=== PATIENT | male | born 1945 | race Caucasian/White ===

== ENCOUNTER → 2018-06-01 06:56 | Outpatient (CLI) | payer MEDICARE, OTHER, SELFPAY ==
--- NOTE | 2018-06-01 06:59 | CT_ITS ---
STUDY: CT BRAIN WITH AND WITHOUT CONTRAST REASON FOR EXAM: Male, 72 years old. Headaches. Vertigo and dizziness. Patient has a history of bilateral cochlear implants. RADIATION DOSAGE (If Supplied By Facility): CTDIvol = ( 44.99 ) mGy, DLP = ( 1585.20 ) mGycm TECHNIQUE: Transaxial CT imaging of the brain was performed pre and post contrast administration. The examination was performed with intravenous administration of 100mL ml of Isovue 300 contrast material. Individualized dose optimization techniques were used for this CT. COMPARISON: None. FINDINGS: Normal soft tissue structures. Prior right parietal craniotomy. Beam hardening artifact seen from the bilateral cochlear implants. The patient is status post bilateral partial mastoidectomy. There is mild cerebral atrophy with widening of the extra-axial spaces and ventricular dilatation. Normal white matter tracts of the cerebral hemispheres. Normal basal ganglia and thalami. Normal brainstem. Normal cerebellum. There is no intracranial hemorrhage. There are no findings of an acute ischemic infarction. Atherosclerotic plaques at the level of the cavernous carotids bilaterally. Normal visualized paranasal sinuses. CT/Brain/Head W/WO Contrast IMPRESSION: Chronic involutional changes of the brain. Electronically Signed: Germán Sarkar MD at 9:48 EDT Tel [phone], Service support ,
[2018-06-01 07:15] LABS: CREATININE FINGERSTICK 0.9 mg/dL (0.70-1.30); EGFR FINGERSTICK > 60.0000 mL/min (>60)
== END ==
PROVIDERS: Family Provider Family Medicine; PCP Family Medicine; Visit Provider Family Medicine
DX: R51 Headache (principal)
CPT/HCPCS: 70470; Q9967

== ENCOUNTER → 2018-08-09 11:45 | Outpatient (CLI) | payer MEDICARE, OTHER, SELFPAY ==
[2018-08-09 14:38] LABS: Anion Gap 9 (5-15); BUN 20 mg/dL (7-18); BUN/Creat Ratio 17.7 RATIO (10-20); Calcium,Total 9.2 mg/dL (8.5-10.1); Chloride 109 mmol/L (98-107); Cholesterol 144 mg/dL (200); Creatinine, Serum 1.13 mg/dL (0.70-1.30); EST Glomerular Filtration Rate 68 mL/min (>60); Est Glom Filt Rate - Afr Amer 82 mL/min (>60); Glucose 101 mg/dL (74-106); High Density Lipoprotein 39 mg/dL; Potassium 4.3 mmol/L (3.5-5.1); Sodium Level 140 mmol/L (136-145); Triglycerides 146 mg/dL; Very Low Density Lipoprotein 29 mg/dL (5-40)
== END ==
PROVIDERS: Family Provider Family Medicine; PCP Family Medicine; Visit Provider Family Medicine
DX: I10 Essential (primary) hypertension (principal); E78.5 Hyperlipidemia, unspecified
CPT/HCPCS: 80048; 80061

== ENCOUNTER 2019-04-09 10:00 | Outpatient (RCR) | payer MEDICARE, OTHER, SELFPAY ==
--- NOTE | 2019-03-27 11:59 | HP.PTEVAL ---
Patient's Visit Information BHAVNA ROCA is a 73 year old M referred to Physical Therapy by Jc Fowler MD with a diagnosis of gait and balance issues. Date of Evaluation: 03/27/19 Physical Therapist: NATALYA Clifton - Visit Plan Frequency: 2x /Week Duration: 4-6 Weeks Plan: 2X/ week for 4-6 weeks for VOR X 1, gait with head turns, functional balance with vestibular inputs, with HEP - Subjective Findings: Pt was at the neurologist and he did a babinski test (pt described) and he could not tell the difference in his feet......dx cervical myelopathy. Approx 5 years ago he was diagnosed with decreased L sided vestibular system and he was doing ok with that. In Nov of this year the Dr said that he had high drops ( excess fluid in the inner ear) and the cochlea and the 3 tubes that help with balance have excess fluid. Pt has not fallen but his balance is not the best. He notices it more on uneven ground and steps and standing on one foot and turn.... he is better with 2 feet on the ground. Pt has neck spinal surgery a few years ago. He wears 2 choclear implnats and cant have an MRI and he has a CAT SCAN wtih contrast coming up as soon as gets scheduled. He has stairs in his home and he can have trouble with those .... he rubs up against the wall ascending and descending the stairs. The other day he was carrying some stuff up stairs for his and he went backwards and his help caught him from going BW. He has trouble getting in and out of his recliner. He has to be careful onece he stands up. The room does not spin at this point. He may get a messed up feeling. - Objective Gait: walks with WBOS with slightly decreased arm swing and forefoot abd. LE MMT: B hip flex 4+/5, B hip abd 4+/5, B hip ext 4/5, B knee flex and ext 4+/5,. FGA: 19 ( Stairs: no arms but increase sway and veering) ( walking with horizontal head turns increased veering). CATSIB: 100. Sit to stand transfer: Pt is able to stand up without the use of his UE's. Stairs: Able to sit to stand without using his UE's - Balance Scores Functional Gait Assessment Score: 19 % Disability: 36.6700 CATSIB Score (Max score 120 seconds): 100 - Goals Goal 1:: I HEP Goal Time Frame: 4-6 Weeks Goal 2:: Increase CATSIB to 120 Goal Time Frame: 4-6 Weeks Goal 3:: Pt to sunjectively feel 50% improvement in his balance Goal Time Frame: 4-6 Weeks Goal 4:: Be able to complete VOR X 1 in standing and walking with no complaints of dizziness for 75 feet Goal Time Frame: 4-6 Weeks Goal 5:: Be able to walk with horizontal head turns with no veering or LOB Goal Time Frame: 4-6 Weeks - Rehabilitation Potential Rehabilitation Potential: Good - Anticipated Interventions Patient/Client Instruction: Educate patient on: Condition, Plan of Care For the Purpose of:: To improve muscle performance and motor function, To improve ability to perform ADL's, To increase tolerance to activity/condition/position, To improve performance and independence with ADL's, To improve ability of physical actions for home/community/work/leisure, To improve gait and locomotor functions, To improve balance, To improve safety with gait Therapeutic Exercise to Include: Strength training, Balance training, Gait and locomotor training For the Purpose of:: To improve gait and locomotor functions, To improve balance, To improve safety with gait Functional Training to Include: Gait training For the Purpose of:: To improve gait and locomotor functions, To improve safety with gait Thank you for the opportunity to evaluate your patient. For Medicare and Medicare HMO plans, please review the plan of care and approve it. It will need to be FAXED BACK to us at [phone] for Medicare purposes. For Medicare only, by signing this I certify the plan of care. Please let me know if there are questions or concerns regarding this plan of care. Physician Signature: Date:
--- NOTE | 2019-04-09 10:42 | HP.PTDCSUM ---
HP - PT D/C Summary It has been my pleasure to treat BHAVNA ROCA under orders from Jc Fowler MD, for the diagnosis of gait and balance issues for a total of 3 visit(s). Discharge Date: 04/09/19 Please see the following information for a summary of their discharge status. - Subjective Subjective: He has been doing his exercises at home and they are not making him dizzy. Pt reports that in the last few days..... Pt feels terrible. He is not dizzy... He does not feel like doing anything. THe more he does the more he feels off. He does feel unsteady especially on uneven surfaces and better to turn on 2 feet versus one foot. Pt feels frustrated that he is doing PT and does not have all the pieces of the puzzle togheter with his CAT SCAN etc... - Objective Objective/Function: Pt has some decreased smoothness with smooth pursuit with some catching up needed at times both horizontal and vertical. Pt is able to walk 65 feet X2 with horizontal and then vertical head turns without LOB or veering. Pt is able to stand on foam X 30 sec X 3 while being able to correct his LOB without any external support - Goals Goal 1:: I HEP Goal Progress: Goal Met Goal 2:: Increase CATSIB to 120 Goal Progress: Goal Met Goal 3:: Pt to sunjectively feel 50% improvement in his balance Goal Progress: Progressing Goal 4:: Be able to complete VOR X 1 in standing and walking with no complaints of dizziness for 75 feet Goal Progress: Goal Met Goal 5:: Be able to walk with horizontal head turns with no veering or LOB Goal Progress: Goal Met - Plan Plan: DC PT to HEP: Standing on foam in corner with someone present for safety with EC and head turns - D/C Information Discharge Comments: DC PT to HEP If there are questions or concerns regarding this patient's physical therapy, please feel free to call me at [phone]. Thank you for the referral of this patient. Sincerely, Agata Correia, MPT
== END 2019-04-09 19:00 | disposition home or self-care (01) ==
LOC: PT 10:00
PROVIDERS: Family Provider Family Medicine; PCP Family Medicine; Referring Provider Psychiatry & Neurology Neurology; Visit Provider Psychiatry & Neurology Neurology
DX: R26.89 Other abnormalities of gait and mobility (principal)
CPT/HCPCS: 97110; 97161; 97530

== ENCOUNTER → 2019-04-12 14:57 | Outpatient (CLI) | payer MEDICARE, OTHER, SELFPAY ==
--- NOTE | 2019-04-12 15:03 | CT_ITS ---
STUDY: CT CERVICAL SPINE WITH CONTRAST REASON FOR EXAM: Male, 73 years old. Cervical stenosis. Prior surgery. RADIATION DOSAGE (If Supplied By Facility): CTDIvol = ( 24.45 ) mGy, DLP = ( 654.88 ) mGycm TECHNIQUE: High resolution transaxial imaging was performed following intravenous administration of 100 IV Isovue 300. Sagittal and coronal images were reconstructed. Individualized dose optimization techniques were used for this CT. COMPARISON: 11/29/2016 FINDINGS: No definite acute fracture/dislocation. The cervical junction is intact. C1-C2 articulation is intact. Patient has had discectomies and anterior fusion at C5, C6, and C7. There is mature bony fusion at these disc levels and there is no complication related to the anterior buttress plate. There is straightening. There is normal alignment. Facet joints are intact at all levels bilaterally. No jumped facets. There is multilevel spondyloarthropathy. Multilevel degenerative disc disease seen. At C2-C3 there is adequate spinal canal In normal neural foramina. At C3-C4 there are posterior marginal osteophytes. Severe narrowing of the left neural foramina. Mild narrowing of the right neural foramina. No definite spinal stenosis. At C4-C5 there is bilateral moderate to severe neural foraminal narrowing. Mild compromise of the spinal canal. At C5-C6 there is moderate to severe bilateral neural foraminal narrowing. There is [id number] compromise of the spinal canal. At C6-C7 there is moderate bilateral neural foraminal narrowing. At C7-T1 there is adequate spinal canal due to a normal neural foramina. Visualized paraspinal soft tissues and structures are unremarkable. CT/Spine Cervical WITH Contrast IMPRESSION: There is no definite acute fracture/dislocation. Degenerative and postoperative changes. Electronically Signed: Carlos Leal MD at 0:00 EDT , Service support ,
[2019-04-12 15:21] LABS: EGFR FINGERSTICK > 60.0000 mL/min (>60)
== END ==
PROVIDERS: Family Provider Family Medicine; PCP Family Medicine; Referring Provider Psychiatry & Neurology Neurology; Visit Provider Psychiatry & Neurology Neurology
DX: R27.0 Ataxia, unspecified (principal); M54.12 Radiculopathy, cervical region
CPT/HCPCS: 72126; Q9967

== ENCOUNTER → 2019-05-10 09:27 | Outpatient (CLI) | payer MEDICARE, OTHER, SELFPAY ==
[2019-05-10 10:18] LABS: Absolute Lymphocyte Count 1.25 X10^3/ul (0.83-4.51); Absolute Neutrophil Count 4.8 X10^3/uL (2.0-7.7); Basophil# 0.02 X10^3/uL; Basophil% 0.3 % (0-1); Eosinophils% 4.2 % (0-5); Hematocrit 46.7 % (40-54); Lymphocyte # 1.25 X10^3/ul (4.0); Lymphocyte % 17.3 % (19-41); Mean Corp Hgb Conc 34.3 g/gl (32-36); Mean Corpuscular Hgb 31.6 pg (27.0-32.0); Mean Corpuscular Volume 92.1 fL (80-94); Mean Platelet Vol. 10.4 fl (6.2-12.0); Monocyte# 0.85 X10^3/uL; Monocyte% 11.8 % (0-10); Neutrophil # 4.77 X10^3/uL (2.7-7.7); Platelet Count 204 K/mm3 (150-450); RBC Distribution Width CV 13.1 % (11.6-14.6); RBC Distribution Width SD 43.8 fl (35.1-43.9); Red Blood Count 5.07 M/mm3 (4.6-6.2); White Blood Count 7.2 K/mm3 (4.4-11.0)
[2019-05-10 10:21] LABS: POSITIVE COUNT NO; POSITIVE DIFFERENTIAL NO; POSITIVE MORPHOLOGY NO
[2019-05-10 10:56] LABS: Anion Gap 6 (5-15); BUN 28 mg/dL (7-18); BUN/Creat Ratio 25.7 RATIO (10-20); Calcium,Total 8.8 mg/dL (8.5-10.1); Chloride 111 mmol/L (98-107); Cholesterol 153 mg/dL (200); Creatinine, Serum 1.09 mg/dL (0.70-1.30); EST Glomerular Filtration Rate 71 mL/min (>60); Est Glom Filt Rate - Afr Amer 86 mL/min (>60); Glucose 92 mg/dL (74-106); High Density Lipoprotein 39 mg/dL; PSA,Total - Annual Screen 1.54 ng/mL (0.00-4.00); Potassium 4.1 mmol/L (3.5-5.1); Sodium Level 140 mmol/L (136-145); Thyroid Stim Hormone (TSH) 2.35 uIU/mL (0.358-3.74); Triglycerides 196 mg/dL; Very Low Density Lipoprotein 39 mg/dL (5-40)
== END ==
PROVIDERS: Family Provider Family Medicine; PCP Family Medicine; Referring Provider Family Medicine; Visit Provider Family Medicine
DX: I10 Essential (primary) hypertension (principal); E04.2 Nontoxic multinodular goiter; E78.5 Hyperlipidemia, unspecified; R06.09 Other forms of dyspnea; Z12.5 Encounter for screening for malignant neoplasm of prostate
CPT/HCPCS: 36415; 80048; 80061; 84153; 84443; 85025; G0103

== ENCOUNTER → 2019-05-16 12:46 | Outpatient (CLI) | payer MEDICARE, OTHER, SELFPAY ==
--- NOTE | 2019-05-16 12:50 | CT_ITS ---
STUDY: CT CERVICAL SPINE WITH INTRATHECAL CONTRAST (CERVICAL CT MYELOGRAM) REASON FOR EXAM: Male, 73 years old. RADIATION DOSAGE (If Supplied By Facility): CTDIvol = ( ) mGy, DLP = ( ) mGycm TECHNIQUE: Transaxial images were obtained following intrathecal administration of ml of contrast material, performed by . Please refer to this physicians technical notes for procedural details. Coronal and sagittal reconstructions were obtained. Individualized dose optimization techniques were used for this CT. CONSENT: SEDATION: FLUOROSCOPY TIME (if supplied): (0:24) minutes/seconds Injection Information: Number of images obtained: COMPARISON: None. Under fluoroscopic control 22-gauge spinal needle was introduced into the subarachnoid space at the level L3-4. 10 cc Omnipaque 200 contrast was injected. The patient then was put in headdown position to be transferred to CT scan. CT/Spine Cervical WITH Contrast IMPRESSION: Successful injection of contrast into the subarachnoid at L3-4 Electronically Signed: Bhupinder Ferrell, at 7:39 EDT Tel , Service support ,
[2019-05-16 13:13] VITALS: BP 153/62; PULSE 64; RESP 16; TEMP 37; O2SAT 100; BMI 27.7
[2019-05-16 15:08] VITALS: BP 113/64; PULSE 63; RESP 16; O2SAT 96
== END ==
PROVIDERS: Family Provider Family Medicine; PCP Family Medicine; Referring Provider Orthopaedic Surgery; Visit Provider Orthopaedic Surgery
DX: M48.02 Spinal stenosis, cervical region (principal)
CPT/HCPCS: 62284; 72126; 72240; Q9965

== ENCOUNTER → 2019-05-27 06:37 | Outpatient (CLI) | payer MEDICARE, OTHER, SELFPAY ==
[2019-05-16 13:13] VITALS: BMI 27.7
--- NOTE | 2019-05-27 08:10 | ECHOD_ITS ---
Reason For Study: [place] Procedure This was a 2D Doppler, Color Flow transthoracic echocardiogram. Exam performed in department. Left Ventricle Normal LV size. Left ventricular systolic function is normal. The estimated ejection fraction is 65 %. Stage 1 diastolic dysfunction. No regional wall motion abnormalities noted. Right Ventricle Normal RV size. Normal systolic function. Atria Normal left atrium. Normal right atrium. Bubble contrast study negative for right to left interatrial shunt. Mitral Valve Normal mitral valve. Tricuspid Valve Normal tricuspid valve. Mild tricuspid valve insufficiency. Aortic Valve Normal aortic valve. Trisinus/trileaflet aortic valve. Pulmonic Valve Normal pulmonic valve. Great Vessels Normal aortic root. The pulmonary artery is normal size. Normal inferior vena cava. Pericardium/Pleural No pericardial effusion. Medication Performed a rapid injection of agitated mix of 9 cc saline and 1cc air to assess for atrial septal defect. MMode/2D Measurements & Calculations LVIDd: 4.4 cm IVSd: 1.1 cm Ao root diam: 3.4 cm LVIDs: 2.9 cm LVPWd: 0.96 cm RVDd: 4.0 cm FS: 33.5 % LAV(MOD-bp): 41.1 ml LVAd ap4: 25.9 cm2 SV(MOD-sp4): 42.0 ml LAV(MOD-bp) Indexed: 18.7 ml/m2 EDV(MOD-sp4): 67.3 ml LAV(MOD-sp2): 46.2 ml EDV(sp4-el): 69.9 ml LAV(MOD-sp4): 35.6 ml LVAs ap4: 14.1 cm2 ESV(MOD-sp4): 25.3 ml ESV(sp4-el): 23.8 ml EF(MOD-sp4): 62.4 % EF(sp4-el): 65.9 % SV(sp4-el): 46.0 ml LA A4 area: 15.3 cm2 LA dimension(2D): 4.6 cm RA A4 area: 15.1 cm2 Doppler Measurements & Calculations MV E max alex: 68.9 cm/sec Lat Peak E' Alex: 10.5 cm/sec Med Peak E' Alex: 6.5 cm/sec MV A max alex: 83.4 cm/sec E/E' lat: 6.6 E/E' med: 10.6 MV E/A: 0.83 Ao V2 max: 153.4 cm/sec LV V1 max: 127.2 cm/sec PA V2 max: 166.6 cm/sec Ao max P.4 mmHg LV V1 max P.5 mmHg PA V2 mean: 111.4 cm/sec Ao V2 mean: 104.0 cm/sec PA V2 VTI: 34.8 cm Ao mean P.8 mmHg Ao V2 VTI: 33.2 cm PI end-d alex: 109.8 cm/sec Interpretation Summary Normal LV size. Left ventricular systolic function is normal. The estimated ejection fraction is 65 %. Stage 1 diastolic dysfunction. Mild tricuspid valve insufficiency. Bubble contrast study negative for right to left interatrial shunt. Ordering Physician: Alberto Wilhelm Referring Physician: Alberto Wilhelm Performed By: Valentina Benjamin RDCS, RVT
--- NOTE | 2019-05-27 09:20 | STRESSREP ---
Stress Test Report Exercise myocardial perfusion stress test. 73-year-old man with a history of dyspnea on exertion. Medications: Hydrochlorthiazide. Stress protocol: Resting EKG demonstrates sinus bradycardia with a rate of 57 bpm normal intervals are noted resting blood pressures 120/64 mmHg. The patient exercised according to regular Jerry protocol for a total duration of 10 minutes. Patient completed 1 minute into stage IV of the Jerry protocol. The maximum heart rate attained was 137 bpm which was 91% of maximum predicted heart rate of maximum workload was 11.5 metabolic equivalents. Patient maintained sinus rhythm throughout the recording with occasional premature ventricular complexes noted. The resting blood pressure was 120/64 mmHg with a peak blood pressure 160/70 mmHg. No clinical angina was noted patient got mildly short of breath test was terminated due to leg fatigue. Myocardial perfusion protocol. 12.0 mCi of technetium 99m sestamibi was injected at rest. The patient exercised according to regular Jerry protocol for total duration of 10 minutes. At peak exercise 34.3 mCi of technetium 99m sestamibi was injected stress images were obtained stress and rest images are reconstructed and compared in the short axis vertical and horizontal long axis. Gated images were also obtained. Perfusion SPECT analysis: Review of the stress images demonstrate normal uptake of tracer noted in all areas of the myocardium the resting images similarly demonstrate normal uptake of tracer noted in all areas of the myocardium. No reversibility is noted suggest ischemia. Gated SPECT analysis: The gated ejection fraction is noted to be 67% with no wall motion abnormalities noted Conclusion: Exercise myocardial perfusion stress test with no evidence of ischemia noted at high workload. Excellent functional capacity. Preserved ejection fraction. No symptoms noted.
== END ==
PROVIDERS: Family Provider Family Medicine; PCP Family Medicine; Referring Provider Family Medicine; Visit Provider Family Medicine
DX: R06.09 Other forms of dyspnea (principal)
CPT/HCPCS: 78452; 93017; 93306; A9500; A4216

== ENCOUNTER → 2020-07-07 11:24 | Outpatient (CLI) | payer MEDICARE, OTHER, SELFPAY ==
[2019-05-16 13:13] VITALS: BMI 27.7
[2020-07-07 15:39] LABS: ALB/GLOB Ratio 1.1 RATIO (0.9-2.4); AST(SGOT) 24 U/L (15-37); Alanine Aminotransfer ALT/SGPT 29 U/L (16-61); Albumin, Serum 3.5 g/dL (3.2-5.0); Alkaline Phosphatase 87 U/L (45-117); Anion Gap 4 (5-15); BUN 16 mg/dL (7-18); Chloride 107 mmol/L (98-107); Cholesterol 163 mg/dL (200); EST Glomerular Filtration Rate 78 mL/min (>60); Est Glom Filt Rate - Afr Amer 94 mL/min (>60); Globulin 3.3 g/dL (2.2-4.2); Glucose 90 mg/dL (74-106); High Density Lipoprotein 44 mg/dL; PSA,Total - Annual Screen 1.96 ng/mL (0.00-4.00); Protein, Total 6.8 g/dL (6.4-8.2); Sodium Level 141 mmol/L (136-145); Triglycerides 159 mg/dL; Very Low Density Lipoprotein 32 mg/dL (5-40)
== END ==
PROVIDERS: PCP Family Medicine; Referring Provider Family Medicine; Visit Provider Family Medicine
DX: I10 Essential (primary) hypertension (principal); E78.5 Hyperlipidemia, unspecified; Z12.5 Encounter for screening for malignant neoplasm of prostate
CPT/HCPCS: 36415; 80053; 80061; 84153; G0103

== ENCOUNTER → 2021-03-12 11:06 | Outpatient (CLI) | payer MEDICARE, OTHER, SELFPAY ==
[2019-05-16 13:13] VITALS: BMI 27.7
[2021-03-13 12:34] LABS: PSA, Free % 33.3 % (.); PSA, Total Ultrasensitive 1.8 ng/mL (0.0-4.0)
== END ==
PROVIDERS: PCP Family Medicine; Visit Provider Family Medicine
DX: N40.0 Benign prostatic hyperplasia without lower urinary tract symptoms (principal)
CPT/HCPCS: 36415; 84153; 84154

== ENCOUNTER 2021-05-16 15:33 | Emergency (ER) | payer MEDICARE, OTHER, SELFPAY ==
[2019-05-16 13:13] VITALS: BMI 27.7
[2021-05-16 15:33] VITALS: BP 147/71; PULSE 74; RESP 16; TEMP 36.9; O2SAT 95; BMI 27.7
--- NOTE | 2021-05-16 15:43 | CT_ITS ---
STUDY: CT ABDOMEN AND PELVIS WITHOUT CONTRAST REASON FOR EXAM: Male, 75 years old. Kidney Stone RADIATION DOSAGE (If Supplied By Facility): CTDIvol = ( 13.39 ) mGy, DLP = ( 809.67 ) mGycm TECHNIQUE: Transaxial images were obtained from the dome of the diaphragm to the symphysis pubis without oral contrast, and without intravenous contrast. Sagittal and coronal images were reconstructed. Individualized dose optimization techniques were used for this CT. COMPARISON: None. FINDINGS: The visualized lung bases are unremarkable. The visualized portions of the heart are within normal limits. Normal liver. There are surgical clips in the gallbladder fossa consistent with a prior cholecystectomy. Normal spleen. Normal pancreas. Normal bilateral adrenal glands. Abnormal right kidney showing mild hydronephrosis and moderate hydroureter down to a 5 mm distal right ureteral stone seen on axial image 171 and coronal image 85. Several probable right renal cysts also seen is much as 3.4 cm. Left kidney shows numerous probable simple renal cyst measuring as much as 4.9 cm. Evaluation of the GI tract is limited by absence of oral contrast. Cannot exclude stomach wall thickening. No dilated loops of bowel or evidence for obstruction. Cannot exclude segmental thickening of the angeles of the small or large bowel. Cannot exclude enteritis or colitis. Moderate diffuse fecal retention. Appendix within normal limits. There is diffuse atherosclerotic calcification of the abdominal aorta, without a demonstrated aneurysm. Normal inferior vena cava. Normal retroperitoneum. Normal urinary bladder. There is enlargement of the prostate gland. Normal abdominal wall. There are diffuse degenerative changes of the visualized lumbar spine. CT/Abdomen/Pelvis without Cont IMPRESSION: Obstruction of the right kidney collecting system and ureter from a 5 mm distal right ureteral calculus. Numerous bilateral probable renal cysts-confirm with ultrasound. Electronically Signed: Carlos Leal MD at 16:22 EDT , Service support ,
--- NOTE | 2021-05-16 15:44 | EDS_ITS ---
HPI History of Present Illness Chief Complaint: Flank Pain Informant: patient and spouse/S.O. Narrative Narrative: 75-year-old male presents for the evaluation of right flank pain. Patient states he was driving and got a severe pain sharp and stabbing in the left flank. He thinks he had some slight anterior abdominal discomfort on the right side. He states that on the way to the emergency department he began to feel better and would now state that he does not have any pain. He is had a prior kidney stone requiring ureteral stenting. This was about 20 years ago. Normal bowel movements no fevers. No urinary complaints. [facility] Medical History (Updated 05/16/21 @ 17:[address] Devon Allen DO) Hypercholesterolemia Hypertension Home Medications aspirin 81 mg PO DAILY@0800 11/29/16 [History Last Taken 07/24/17] hydrochlorothiazide 12.5 mg PO DAILY 12/06/16 [History Last Taken Unknown] hydrocodone-acetaminophen 1 - 2 tab PO Q4H PRN PRN #15 tablet 12/06/16 [Rx Last Taken Unknown] lisinopril 20 mg PO DAILY 12/06/16 [History Last Taken Unknown] simvastatin 40 mg PO QHS 12/06/16 [History Last Taken Unknown] hydrocodone-acetaminophen 1 tab PO Q6H PRN PRN 3 Days #12 tablet 05/16/21 [Rx Last Taken Unknown] nortriptyline 10 mg PO QHS 05/16/21 [History Last Taken Unknown] ondansetron 4 mg PO Q6H PRN PRN #10 tab 05/16/21 [Rx Last Taken Unknown] Allergy/AdvReac Type Severity Reaction Status Date / Time No Known Allergies Allergy Verified 08/07/17 12:25 Surgical History History of cochlear implant S/P cholecystectomy S/P ureteral stent placement Social History (Updated 05/16/21 @ 15:[address] Devon Allen DO) Smoking Status: Never smoker substance use type: does not use ROS ROS ED Constitutional Constitutional ED: Denies chills or weight loss Eyes Eyes: Denies change in vision or diplopia ENT ENT ED: Denies ear pain, rhinorrhea or sore throat Cardiovascular Cardiovascular: Denies chest pain, orthopnea, palpitations or racing heartbeat Respiratory/Chest Respiratory/Chest: Denies cough, dyspnea or orthopnea Gastrointestinal Gastrointestinal: Denies abdominal pain, diarrhea, nausea or vomiting Genitourinary Genitourinary ED: Reports other Details: Right flank pain ; Denies dysuria, hematuria or urinary frequency Musculoskeletal Musculoskeletal: Denies arthralgias or myalgias Integumentary Denies abscess or rash Neurologic Neurologic: Denies headache(s) or weakness Psychiatric Psychiatric: Denies anxiety, depression, suicidal ideation or suicidal thoughts Endocrine Endocrinology: Denies polydipsia, polyphagia or polyuria Allergic/Immunologic Allergic/Immunologic ED: Denies mouth swelling, tongue swelling or urticaria EXAM Physical Exam Const Vital Signs: 05/16/21 15:33 Temperature 98.4 F Temperature Source Temporal Pulse Rate 74 Respiratory Rate 16 Blood Pressure 147/71 H Blood Pressure Mean 96 Pulse Ox 95 Oxygen Delivery Method Room Air Positive well nourished and well developed General Appearance ED: well developed HEENT Reports normocephalic, head/scalp atraumatic and moist mucous membranes Eyes PERRL and EOMs intact bilaterally Neck no lymphadenopathy, supple and no JVD Resp normal respiratory effort and clear to auscultation bilaterally Cardio regular rate, regular rhythm and no murmurs GI normal to inspection, nondistended, normoactive bowel sounds and non-tender Palpation: soft Back/Spine no CVA tenderness and normal ROM Extremity normal to inspection General Extremety ED: Negative for edema General Extremity: Negative for edema Neuro oriented x3 and CN's II-XII intact bilaterally Sensorium / Orientation: alert Motor Exam: strength 5/5 throughout Psych mental status grossly normal Mood & Affect: Negative for depressed or tearful Skin no rashes or lesions noted and no wounds MDM MDM MDM Narrative Medical decision making narrative: Urinalysis reveals hematuria. White count 9.4 [address] Creatinine 1.23. CT of the abdomen pelvis without contrast reveals a distal 5 mm ureteral stone with associated hydronephroureter. Patient's pain has been controlled since has been here. Plan to have him follow-up with urology. I can write for pain and nausea medication. We discussed the possibility of Flomax but he states that he recently started a medication like Flomax but he got very lightheaded with it so we will not prescribe this today. He will return if worsening or his pain is not controlled Lab Data Attestation: I reviewed the patient's lab results. Labs: Laboratory Results - last 24 hr 05/16/21 05/16/21 05/16/21 15:50 15:50 15:53 WBC 9.4 RBC 5.41 Hgb 16.9 H Hct 50.4 MCV 93.2 MCH 31.2 MCHC 33.5 RDW Std Deviation 40.6 RDW Coeff of Jacob 11.9 Plt Count 243 MPV 9.8 Immature Gran % (Auto) 0.300 Neut % (Auto) 81.8 H Lymph % (Auto) 8.9 L Thayer % (Auto) 6.8 Eos % (Auto) 1.8 Baso % (Auto) 0.4 Absolute Neuts (auto) 7.6 Absolute Lymphs (auto) 0.83 Nucleated RBC % 0 Sodium 140 Potassium 3.8 Chloride 106 Carbon Dioxide 28.0 Anion Gap 6 BUN 17 Creatinine 1.23 Estim Creat Clear Calc 60.45 Est GFR (MDRD) Af Amer 74 Est GFR (MDRD) Non-Af 61 BUN/Creatinine Ratio 13.8 Glucose 139 H Calcium 9.2 Urine Color Sherry Urine Clarity Cloudy Urine pH 7.0 Ur Specific [place] 1.015 Urine Protein 100 H Urine Glucose (UA) Normal Urine Ketones 5 H Urine Occult Blood 250 H Urine Nitrite Negative Urine Bilirubin Negative Urine Urobilinogen Normal Ur Leukocyte Esterase 25 H Urine RBC > 100 SEEN Urine WBC 0-5 SEEN Ur Squamous Epith Cells 0-5 SEEN Amorphous Sediment 1+ PHOS Urine Bacteria 0 SEEN Urine Mucus 0 SEEN Radiography Diagnostic Testing: Radiology Impression Abdomen/Pelvis CT 05/16/21 15:43 IMPRESSION: Obstruction of the right kidney collecting system and ureter from a 5 mm distal right ureteral calculus. Numerous bilateral probable renal cysts-confirm with ultrasound. Electronically Signed: Carlos Leal MD at 16:22 EDT , Service support , Discharge Plan Triage Chief Complaint: Flank Pain ED Provider: Devon Allen Dx/Rx/DC Orders Clinical Impression: Calculus of distal right ureter, Acute left flank pain Instructions: ED Kidney Stone w/ Colic Prescriptions: New hydrocodone-acetaminophen [hydrocodone-acetaminophen] 1 TABLET tablet 1 tab PO Q6H PRN PRN (Reason: Pain) 3 Days Qty: 12 RF: 0 ondansetron [ondansetron] 4 MG tablet 4 mg PO Q6H PRN PRN (Reason: Nausea) Qty: 10 RF: 0 No Action aspirin 81 MG tablet,chewable 81 mg PO DAILY@0800 RF: 0 lisinopril 20 MG tablet 20 mg PO DAILY RF: 0 simvastatin 40 MG tablet 40 mg PO QHS RF: 0 hydrochlorothiazide 12.5 MG capsule 12.5 mg PO DAILY RF: 0 hydrocodone-acetaminophen 1 TABLET tablet 1 - 2 tab PO Q4H PRN PRN (Reason: Pain) Qty: 15 RF: 0 nortriptyline 10 mg capsule 10 mg PO QHS RF: 0 Primary Care Provider: Alberto Sheriff Referrals: Roc Dietrich MD [STAFF PHYSICIAN] - As soon as possible Alberto Sheriff MD [Primary Care Provider] - Disposition Disposition: Home, Self Care
[2021-05-16 16:16] LABS: Absolute Lymphocyte Count 0.83 X10^3/uL (0.83-4.51); Absolute Neutrophil Count 7.6 X10^3/uL (2.0-7.7); Basophil# 0.04 X10^3/uL; Basophil% 0.4 % (0-1); Eosinophil# 0.17 X10^3/uL; Eosinophils% 1.8 % (0-5); Hematocrit 50.4 % (40-54); Hemoglobin 16.9 g/dL (13.0-16.5); Lymphocyte # 0.83 X10^3/ul (0.83-4.51); Lymphocyte % 8.9 % (19-41); Mean Corp Hgb Conc 33.5 g/dL (32-36); Mean Corpuscular Hgb 31.2 pg (27.0-32.0); Mean Corpuscular Volume 93.2 fL (80-94); Mean Platelet Vol. 9.8 fl (6.2-12.0); Monocyte# 0.64 X10^3/uL; Monocyte% 6.8 % (0-10); NRBC Flagged by Analyzer 0 % (0-5); Neutrophil # 7.64 X10^3/uL (2.7-7.7); Neutrophil % 81.8 % (47-70); Platelet Count 243 K/mm3 (150-450); RBC Distribution Width CV 11.9 % (11.6-14.6); RBC Distribution Width SD 40.6 fl (35.1-43.9); Red Blood Count 5.41 M/mm3 (4.6-6.2); White Blood Count 9.4 K/mm3 (4.4-11.0)
[2021-05-16 16:19] LABS: Bacteria 0 SEEN /hpf (None Seen); Mucous, Urine 0 SEEN /hpf (<or=2+)
[2021-05-16 16:20] LABS: Color, Urine Amber (Yellow); Glucose, Dipstick Normal (Normal); Ketone-Dipstick 5 mg/dl (Negative); Leukocyte Esterase-Dipstick 25 /ul (Negative); Nitrite-Dipstick Negative (Negative); Occult Blood-Urine 250 /ul (Negative); Protein-Dipstick 100 mg/dl (Negative); Specific Gravity, Urine 1.015 (1.002-1.030); Urine Bilirubin Dipstick Negative (Negative); Urine Clarity Cloudy (Clear); Urine Urobilinogen Normal (Normal)
[2021-05-16 16:26] LABS: Anion Gap 6 (5-15); BUN 17 mg/dL (7-18); BUN/Creat Ratio 13.8 RATIO (10-20); Calcium,Total 9.2 mg/dL (8.5-10.1); Chloride 106 mmol/L (98-107); Creatinine, Serum 1.23 mg/dL (0.70-1.30); EST Glomerular Filtration Rate 61 mL/min (>60); Est Glom Filt Rate - Afr Amer 74 mL/min (>60); Estimated Creatinine Clearance 60.45 ml/min; Glucose 139 mg/dL (74-106); Potassium 3.8 mmol/L (3.5-5.1); Sodium Level 140 mmol/L (136-145)
[2021-05-16 16:37] LABS: Red Blood Cells-Urine > 100 SEEN /hpf (0-5); Squamous Epithelial Cells - UA 0-5 SEEN /hpf (0-5); White Blood Cells 0-5 SEEN /hpf (0-5)
[2021-05-16 16:38] LABS: Amorphous Sediment 1+ PHOS
[2021-05-16 17:23] VITALS: BP 129/71; PULSE 74; RESP 18; O2SAT 97
== END 2021-05-16 17:24 | disposition home or self-care (01) ==
PROVIDERS: Emergency Provider Emergency Medicine; PCP Family Medicine
DX: N20.2 Calculus of kidney with calculus of ureter (principal); R10.9 Unspecified abdominal pain; E78.00 Pure hypercholesterolemia, unspecified; I10 Essential (primary) hypertension; Z79.82 Long term (current) use of aspirin; Z87.442 Personal history of urinary calculi; Z79.899 Other long term (current) drug therapy
CPT/HCPCS: 74176; 80048; 81001; 85025; 99284; A4216

== ENCOUNTER → 2021-06-07 10:28 | Outpatient (CLI) | payer MEDICARE, OTHER, SELFPAY ==
[2021-05-16 15:33] VITALS: BMI 27.7
--- NOTE | 2021-06-07 10:34 | RAD_ITS ---
STUDY: X-RAY - ABDOMEN/PELVIS REASON FOR EXAM: Male, 75 years old. CALCULUS OF URETER TECHNIQUE: Single AP view of the abdomen / pelvis. COMPARISON: None. FINDINGS: Normal visualized lung bases. There is an unremarkable bowel gas pattern. There is no demonstrated free abdominal air. The visualized liver, spleen and kidneys are grossly normal in size and morphology. There are calcified phleboliths in the pelvis. There are mild degenerative changes of the visualized lumbar spine. RAD/Abdomen Single View IMPRESSION: No radiopaque calculus is seen. Electronically Signed: Germán Sarkar MD at 11:10 EDT , Service support ,
[2021-06-07 13:19] LABS: Creatinine, Serum 1.12 mg/dL (0.70-1.30); EST Glomerular Filtration Rate 68 mL/min (>60); Est Glom Filt Rate - Afr Amer 82 mL/min (>60)
== END ==
PROVIDERS: PCP Family Medicine; Referring Provider Nurse Practitioner Adult Health; Visit Provider Nurse Practitioner Adult Health
DX: N20.1 Calculus of ureter (principal)
CPT/HCPCS: 36415; 74018; 82565

== ENCOUNTER → 2021-08-27 09:55 | Outpatient (CLI) | payer MEDICARE, OTHER, SELFPAY ==
[2021-08-27 12:14] LABS: Absolute Lymphocyte Count 1.12 X10^3/uL (0.83-4.51); Basophil# 0.03 X10^3/uL; Basophil% 0.5 % (0-1); Eosinophil# 0.26 X10^3/uL; Eosinophils% 4.3 % (0-5); Hematocrit 50.9 % (40-54); Hemoglobin 16.8 g/dL (13.0-16.5); Lymphocyte # 1.12 X10^3/ul (0.83-4.51); Lymphocyte % 18.3 % (19-41); Mean Corpuscular Volume 93.9 fL (80-94); Mean Platelet Vol. 10.2 fl (6.2-12.0); Monocyte# 0.72 X10^3/uL; Monocyte% 11.8 % (0-10); NRBC Flagged by Analyzer 0 % (0-5); Neutrophil # 3.96 X10^3/uL (2.7-7.7); Neutrophil % 64.8 % (47-70); Platelet Count 228 K/mm3 (150-450); RBC Distribution Width CV 12.2 % (11.6-14.6); Red Blood Count 5.42 M/mm3 (4.6-6.2); White Blood Count 6.1 K/mm3 (4.4-11.0)
[2021-08-27 12:37] LABS: ALB/GLOB Ratio 0.9 RATIO (0.9-2.4); AST(SGOT) 26 U/L (15-37); Alanine Aminotransfer ALT/SGPT 39 U/L (16-61); Albumin, Serum 3.4 g/dL (3.2-5.0); Alkaline Phosphatase 89 U/L (45-117); Anion Gap 5 (5-15); BUN 20 mg/dL (7-18); BUN/Creat Ratio 17.5 RATIO (10-20); Calcium,Total 8.9 mg/dL (8.5-10.1); Chloride 106 mmol/L (98-107); Cholesterol 153 mg/dL (200); Creatinine, Serum 1.14 mg/dL (0.70-1.30); EST Glomerular Filtration Rate 67 mL/min (>60); Est Glom Filt Rate - Afr Amer 81 mL/min (>60); Globulin 3.6 g/dL (2.2-4.2); Glucose 93 mg/dL (74-106); High Density Lipoprotein 38 mg/dL; PSA,Total- Diagnostic 2.06 ng/mL (0.0-4.0); Potassium 4.3 mmol/L (3.5-5.1); Sodium Level 139 mmol/L (136-145); Triglycerides 156 mg/dL; Very Low Density Lipoprotein 31 mg/dL (5-40)
== END ==
PROVIDERS: PCP Family Medicine; Referring Provider Family Medicine; Visit Provider Family Medicine
DX: I10 Essential (primary) hypertension (principal); E78.5 Hyperlipidemia, unspecified; N40.0 Benign prostatic hyperplasia without lower urinary tract symptoms
CPT/HCPCS: 36415; 80053; 80061; 84153; 85025

== ENCOUNTER → 2021-09-09 15:12 | Outpatient (CLI) | payer MEDICARE, OTHER, SELFPAY ==
[2021-09-09 17:50] LABS: Ferritin 82 ng/mL (26-388); Iron 59 ug/dL (65-175); Iron Binding Capacity,Total 301 ug/dL (250-450)
[2021-09-11 13:50] LABS: Transferrin 235 mg/dL (177-329)
== END ==
PROVIDERS: PCP Family Medicine; Referring Provider Family Medicine; Visit Provider Family Medicine
DX: D75.1 Secondary polycythemia (principal)
CPT/HCPCS: 36415; 82728; 83540; 83550; 84466

== ENCOUNTER → 2021-09-16 12:23 | Outpatient (CLI) | payer MEDICARE, OTHER, SELFPAY ==
--- NOTE | 2021-09-16 12:25 | US_ITS ---
STUDY: THYROID ULTRASOUND REASON FOR EXAM: Male, 76 years old. Abnormal thyroid function tests TECHNIQUE: Ultrasound evaluation of the thyroid was performed with real-time and static dang-scale imaging. COMPARISON: 2013 FINDINGS: RIGHT LOBE: The right lobe of the thyroid gland measures 5.5 x 1.9 x 2.1 cm. There is a heterogeneous echotexture. There is a simple 0.8 cm cyst and 2 separate solid nodules. Larger measures 2.3 x 1.6 x 1.3 cm, smaller 0.9 x 0.7 x 0.5 cm. LEFT LOBE: The left lobe of the thyroid gland measures 5.4 x 2.2 x 2.5 cm. There is a heterogeneous echotexture. There is a solid 0.8 x 0.4 x 0.6 cm nodule and a stable lower pole 2.9 x 2.2 x 2.6 cm nodule. ISTHMUS: The isthmus measures 0.4 cm. The regional lymph nodes are normal. US/Thyroid IMPRESSION: Enlarged heterogeneous thyroid gland with multiple bilateral solid nodules and a cyst in the right lobe. Overall there is little significant interval change since the previous study suggesting goiter. Since there is no significant car changer a 7 year., No specific follow-up is needed Electronically Signed: Slim Armendariz MD at 17:38 EDT , Service support ,
== END ==
PROVIDERS: PCP Family Medicine; Referring Provider Family Medicine; Visit Provider Family Medicine
DX: E04.2 Nontoxic multinodular goiter (principal)
CPT/HCPCS: 76536

== ENCOUNTER → 2022-03-10 | Outpatient (CLI) | payer MEDICARE, OTHER, SELFPAY ==
[2022-03-10 12:22] LABS: Absolute Lymphocyte Count 0.98 X10^3/uL (0.83-4.51); Absolute Neutrophil Count 3.9 X10^3/uL (2.0-7.7); Basophil# 0.04 X10^3/uL; Basophil% 0.7 % (0-1); Eosinophil# 0.23 X10^3/uL; Eosinophils% 3.9 % (0-5); Hematocrit 48.6 % (40-54); Hemoglobin 16.2 g/dL (13.0-16.5); Lymphocyte # 0.98 X10^3/ul (0.83-4.51); Lymphocyte % 16.7 % (19-41); Mean Corp Hgb Conc 33.3 g/dL (32-36); Mean Corpuscular Hgb 31.2 pg (27.0-32.0); Mean Corpuscular Volume 93.5 fL (80-94); Mean Platelet Vol. 10.3 fl (6.2-12.0); Monocyte# 0.65 X10^3/uL; Monocyte% 11.1 % (0-10); NRBC Flagged by Analyzer 0 % (0-5); Neutrophil # 3.94 X10^3/uL (2.7-7.7); Neutrophil % 67.1 % (47-70); Platelet Count 238 K/mm3 (150-450); RBC Distribution Width CV 12.5 % (11.6-14.6); RBC Distribution Width SD 42.8 fl (35.1-43.9); White Blood Count 5.9 K/mm3 (4.4-11.0)
[2022-03-10 12:53] LABS: ALB/GLOB Ratio 1.1 RATIO (0.9-2.4); AST(SGOT) 27 U/L (15-37); Alanine Aminotransfer ALT/SGPT 39 U/L (16-61); Albumin, Serum 3.8 g/dL (3.2-5.0); Alkaline Phosphatase 97 U/L (45-117); Anion Gap 6 (5-15); BUN 27 mg/dL (7-18); BUN/Creat Ratio 21.4 RATIO (10-20); Calcium,Total 8.8 mg/dL (8.5-10.1); Chloride 106 mmol/L (98-107); Cholesterol 161 mg/dL (200); Creatinine, Serum 1.26 mg/dL (0.70-1.30); EST Glomerular Filtration Rate 59 mL/min (>60); Est Glom Filt Rate - Afr Amer 72 mL/min (>60); Globulin 3.5 g/dL (2.2-4.2); Glucose 120 mg/dL (74-106); High Density Lipoprotein 42 mg/dL; PSA,Total - Annual Screen 2.22 ng/mL (0.00-4.00); Potassium 4.2 mmol/L (3.5-5.1); Protein, Total 7.3 g/dL (6.4-8.2); Sodium Level 137 mmol/L (136-145); Thyroid Stim Hormone (TSH) 2.75 uIU/mL (0.358-3.74); Triglycerides 160 mg/dL; Very Low Density Lipoprotein 32 mg/dL (5-40)
== END | disposition home or self-care (01) ==
LOC: MFPLAB 10:53
PROVIDERS: PCP Family Medicine; Referring Provider Family Medicine; Visit Provider Family Medicine
DX: I10 Essential (primary) hypertension (principal); E78.5 Hyperlipidemia, unspecified; N40.0 Benign prostatic hyperplasia without lower urinary tract symptoms; E04.2 Nontoxic multinodular goiter; Z12.5 Encounter for screening for malignant neoplasm of prostate
CPT/HCPCS: 36415; 80053; 80061; 84153; 84443; 85025; G0103

== ENCOUNTER → 2022-03-18 | Outpatient (CLI) | payer MEDICARE, OTHER, SELFPAY ==
[2022-03-18 10:38] LABS: Hemoglobin A1c 5.3 % (3.8-5.6)
[2022-03-18 10:54] LABS: ALB/GLOB Ratio 1.1 RATIO (0.9-2.4); AST(SGOT) 21 U/L (15-37); Alanine Aminotransfer ALT/SGPT 31 U/L (16-61); Albumin, Serum 3.5 g/dL (3.2-5.0); Alkaline Phosphatase 100 U/L (45-117); Anion Gap 4 (5-15); BUN 18 mg/dL (7-18); BUN/Creat Ratio 16.5 RATIO (10-20); Calcium,Total 9.4 mg/dL (8.5-10.1); Chloride 110 mmol/L (98-107); Creatinine, Serum 1.09 mg/dL (0.70-1.30); EST Glomerular Filtration Rate 70 mL/min (>60); Est Glom Filt Rate - Afr Amer 85 mL/min (>60); Globulin 3.3 g/dL (2.2-4.2); Glucose 88 mg/dL (74-106); Potassium 4.2 mmol/L (3.5-5.1); Protein, Total 6.8 g/dL (6.4-8.2); Sodium Level 140 mmol/L (136-145)
== END | disposition home or self-care (01) ==
LOC: MFPLAB 09:34
PROVIDERS: PCP Family Medicine; Referring Provider Family Medicine; Visit Provider Family Medicine
DX: R73.09 Other abnormal glucose (principal)
CPT/HCPCS: 36415; 80053; 83036

== ENCOUNTER → 2022-08-31 | Outpatient (CLI) | payer MEDICARE, OTHER, SELFPAY ==
[2022-08-31 10:29] LABS: Bacteria 0 SEEN /hpf (None Seen); Mucous, Urine 0 SEEN /hpf (<or=2+); Red Blood Cells-Urine 0 SEEN /hpf (0-5); Squamous Epithelial Cells - UA 0 SEEN /hpf (0-5); White Blood Cells 0 SEEN /hpf (0-5)
[2022-08-31 12:13] LABS: Color, Urine Yellow (Yellow); Glucose, Dipstick Normal (Normal); Ketone-Dipstick Negative (Negative); Leukocyte Esterase-Dipstick Negative /ul (Negative); Nitrite-Dipstick Negative (Negative); Occult Blood-Urine Negative /ul (Negative); Protein-Dipstick 15 mg/dl (Negative); Specific Gravity, Urine 1.015 (1.002-1.030); Urine Bilirubin Dipstick Negative (Negative); Urine Clarity Clear (Clear); Urine Urobilinogen Normal (Normal)
[2022-08-31 12:26] LABS: Absolute Lymphocyte Count 0.96 X10^3/uL (0.83-4.51); Absolute Neutrophil Count 3.5 X10^3/uL (2.0-7.7); Basophil# 0.05 X10^3/uL; Basophil% 0.9 % (0-1); Eosinophil# 0.23 X10^3/uL; Eosinophils% 4.3 % (0-5); Hematocrit 48.1 % (40-54); Hemoglobin 16.2 g/dL (13.0-16.5); Lymphocyte # 0.96 X10^3/ul (0.83-4.51); Lymphocyte % 17.9 % (19-41); Mean Corp Hgb Conc 33.7 g/dL (32-36); Mean Corpuscular Volume 94.9 fL (80-94); Mean Platelet Vol. 10.3 fl (6.2-12.0); Monocyte% 11.2 % (0-10); NRBC Flagged by Analyzer 0 % (0-5); Neutrophil # 3.51 X10^3/uL (2.7-7.7); Neutrophil % 65.3 % (47-70); Platelet Count 222 K/mm3 (150-450); RBC Distribution Width CV 12.2 % (11.6-14.6); RBC Distribution Width SD 42.3 fl (35.1-43.9); Red Blood Count 5.07 M/mm3 (4.6-6.2); White Blood Count 5.4 K/mm3 (4.4-11.0)
[2022-08-31 12:38] LABS: AST(SGOT) 23 U/L (15-37); Alanine Aminotransfer ALT/SGPT 32 U/L (16-61); Albumin, Serum 3.5 g/dL (3.2-5.0); Alkaline Phosphatase 94 U/L (45-117); Anion Gap 5 (5-15); BUN 21 mg/dL (7-18); BUN/Creat Ratio 18.3 RATIO (10-20); Calcium,Total 9.4 mg/dL (8.5-10.1); Chloride 106 mmol/L (98-107); Cholesterol 147 mg/dL (200); Creatinine, Serum 1.15 mg/dL (0.70-1.30); EST Glomerular Filtration Rate 66 mL/min (>60); Est Glom Filt Rate - Afr Amer 80 mL/min (>60); Globulin 3.5 g/dL (2.2-4.2); Glucose 98 mg/dL (74-106); High Density Lipoprotein 44 mg/dL; Potassium 4.2 mmol/L (3.5-5.1); Sodium Level 139 mmol/L (136-145); Triglycerides 151 mg/dL; Very Low Density Lipoprotein 30 mg/dL (5-40)
== END | disposition home or self-care (01) ==
LOC: MFPLAB 10:26
PROVIDERS: PCP Family Medicine; Referring Provider Family Medicine; Visit Provider Family Medicine
DX: I10 Essential (primary) hypertension (principal); E78.5 Hyperlipidemia, unspecified
CPT/HCPCS: 36415; 80053; 80061; 81001; 85025

== ENCOUNTER → 2023-08-16 | Outpatient (CLI) | payer MEDICARE, OTHER, SELFPAY ==
[2023-08-16 12:57] LABS: ALB/GLOB Ratio 1.1 RATIO (0.9-2.4); AST(SGOT) 22 U/L (15-37); Alanine Aminotransfer ALT/SGPT 35 U/L (16-61); Albumin, Serum 3.4 g/dL (3.2-5.0); Alkaline Phosphatase 99 U/L (45-117); Anion Gap 3 (5-15); BUN 23 mg/dL (7-18); BUN/Creat Ratio 24.4 RATIO (10-20); Calcium,Total 9.2 mg/dL (8.5-10.1); Chloride 106 mmol/L (98-107); Cholesterol 160 mg/dL (200); Creatinine, Serum 0.94 mg/dL (0.70-1.30); EST Glomerular Filtration Rate 83 mL/min (>60); Est Glom Filt Rate - Afr Amer 100 mL/min (>60); Globulin 3.2 g/dL (2.2-4.2); Glucose 95 mg/dL (74-106); High Density Lipoprotein 43 mg/dL; Potassium 4.4 mmol/L (3.5-5.1); Protein, Total 6.6 g/dL (6.4-8.2); Sodium Level 137 mmol/L (136-145); Triglycerides 195 mg/dL; Very Low Density Lipoprotein 39 mg/dL (5-40)
== END | disposition home or self-care (01) ==
LOC: MFPLAB 10:57
PROVIDERS: PCP Family Medicine; Visit Provider Family Medicine
DX: E78.5 Hyperlipidemia, unspecified (principal); I10 Essential (primary) hypertension
CPT/HCPCS: 36415; 80053; 80061

== ENCOUNTER → 2024-03-07 | Outpatient (CLI) | payer MEDICARE, OTHER, SELFPAY ==
[2024-03-07 12:48] LABS: Anion Gap 6 (5-15); BUN 27 mg/dL (7-18); BUN/Creat Ratio 28.8 RATIO (10-20); Chloride 108 mmol/L (98-107); Cholesterol 198 mg/dL (200); Creatinine, Serum 0.94 mg/dL (0.70-1.30); EST Glomerular Filtration Rate 83 mL/min (>60); Est Glom Filt Rate - Afr Amer 100 mL/min (>60); Glucose 97 mg/dL (74-106); High Density Lipoprotein 48 mg/dL; PSA,Total - Annual Screen 2.26 ng/mL (0.00-4.00); Potassium 4.3 mmol/L (3.5-5.1); Sodium Level 139 mmol/L (136-145); Triglycerides 209 mg/dL; Very Low Density Lipoprotein 42 mg/dL (5-40)
== END | disposition home or self-care (01) ==
LOC: MFPLAB 11:13
PROVIDERS: PCP Family Medicine; Visit Provider Family Medicine
DX: Z12.5 Encounter for screening for malignant neoplasm of prostate (principal); I10 Essential (primary) hypertension; E78.5 Hyperlipidemia, unspecified
CPT/HCPCS: 36415; 80048; 80061; 84153; G0103

== ENCOUNTER → 2024-06-17 | Outpatient (CLI) | payer MEDICARE, OTHER, SELFPAY ==
[2024-06-17 17:45] LABS: Absolute Lymphocyte Count 1.44 X10^3/uL (0.83-4.51); Absolute Neutrophil Count 4.4 X10^3/uL (2.0-7.7); Basophil# 0.07 X10^3/uL; Eosinophil# 0.24 X10^3/uL; Eosinophils% 3.3 % (0-5); Hematocrit 44.1 % (40-54); Hemoglobin 14.3 g/dL (13.0-16.5); Lymphocyte # 1.44 X10^3/ul (0.83-4.51); Lymphocyte % 19.6 % (19-41); Mean Corp Hgb Conc 32.4 g/dL (32-36); Mean Corpuscular Hgb 30.8 pg (27.0-32.0); Mean Corpuscular Volume 94.8 fL (80-94); Mean Platelet Vol. 9.6 fl (6.2-12.0); Monocyte# 0.95 X10^3/uL; NRBC Flagged by Analyzer 0 % (0-5); Neutrophil # 4.43 X10^3/uL (2.7-7.7); Neutrophil % 60.4 % (47-70); Platelet Count 313 K/mm3 (150-450); RBC Distribution Width CV 12.2 % (11.6-14.6); RBC Distribution Width SD 42.5 fl (35.1-43.9); Red Blood Count 4.65 M/mm3 (4.6-6.2); White Blood Count 7.3 K/mm3 (4.4-11.0)
[2024-06-17 18:13] LABS: Anion Gap 4 (5-15); BUN 37 mg/dL (7-18); BUN/Creat Ratio 34.6 RATIO (10-20); Calcium,Total 9.5 mg/dL (8.5-10.1); Chloride 108 mmol/L (98-107); Creatinine, Serum 1.07 mg/dL (0.70-1.30); EST Glomerular Filtration Rate 71 mL/min (>60); Est Glom Filt Rate - Afr Amer 86 mL/min (>60); Glucose 98 mg/dL (74-106); Potassium 4.9 mmol/L (3.5-5.1); Sodium Level 138 mmol/L (136-145)
== END | disposition home or self-care (01) ==
LOC: MFPLAB 15:13
PROVIDERS: PCP Family Medicine; Visit Provider Family Medicine
DX: R06.02 Shortness of breath (principal)
CPT/HCPCS: 36415; 80048; 85025

== ENCOUNTER → 2024-07-08 | Outpatient (CLI) | payer MEDICARE, OTHER, SELFPAY ==
--- NOTE | 2024-07-08 07:56 | CDU_ITS ---
Reason For Study: Dizziness Rt. Velocities/BP Lt. Velocities/BP Prox CCA 100/18 cm/sec. Prox CCA 114/16 cm/sec. Mid CCA 96/17 cm/sec. Mid CCA 125/14 cm/sec. Dist CCA 94/19 cm/sec. Dist CCA 116/18 cm/sec. Prox ICA 90/20 cm/sec. Prox ICA 100/18 cm/sec. Mid ICA 94/24 cm/sec. Mid ICA 97/24 cm/sec. Dist ICA 79/24 cm/sec. Dist ICA 93/19 cm/sec. Rt. ICA/CCA = 1.0. Lt. ICA/CCA = 0.8. Prox ECA 209/7 cm/sec. Prox ECA 156/10 cm/sec. Rt. Vert. 44/12 cm/sec. Lt. Vert. 48/12 cm/sec. Right Extracranial There is intimal thickening but no significant atherosclerotic plaque noted in the right common carotid artery. There is heterogeneous, smooth atherosclerotic plaque noted in the right internal carotid artery. There is intimal thickening but no significant atherosclerotic plaque noted in the right external carotid artery. Left Extracranial There is heterogeneous, irregular atherosclerotic plaque noted in the left common carotid artery. There is heterogeneous, irregular atherosclerotic plaque noted in the left internal carotid artery. There is no significant atherosclerotic plaque noted in the left external carotid artery. Antegrade flow is noted in the left vertebral artery. Procedure Carotid Duplex [id number]. This is a Carotid Duplex examination using B-mode, color flow and specral Doppler. Exam performed in department. VL/Carotid Duplex Ultrasound Interpretation Summary Mild (<50%) stenosis right extracranial internal carotid. Mild (<50%) stenosis left extracranial internal carotid. Flow within the vertebral arteries is antegrade bilaterally. Elevated velocities in the right external carotid artery suggest stenosis >50%. Ordering Physician: Alfredo Vasquez Referring Physician: Alfredo Vasuqez Performed By: Valentina Benjamin, RDCS, RVT
--- NOTE | 2024-07-10 15:21 | STRESSREP_ITS ---
Stress Test Report Date: 07/08/2024 Procedure: Exercise tolerance test/imaging study Indications: Dyspnea Consent: Per the patient Procedure: The patient exercised on a Jerry protocol for 8 minutes and 30 seconds achieving a peak heart rate of 130 bpm (90% predicted maximal heart rate) with a peak blood pressure 160/76 mmHg and a peak MET capacity of 10.1 METs. The baseline ECG demonstrated normal sinus rhythm. The peak exercise ECG demonstrated no significant ischemic changes. EKG during recovery revealed no significant ischemic changes [There were no cardiac dysrhythmias pretest, during exercise, or recovery]. The functional capacity was considered excellent for age. There was [no complaint of chest discomfort during exercise or recovery]. The examination was discontinued secondary to shortness of breath. Impression: 1. Technically adequate (percent predicted maximal heart rate greater than 85%) exercise tolerance test 2. Stress test is negative for exercise-induced EKG changes of ischemia 3. The test test is negative for exercise-induced chest pain. Patient had shortness of breath with expiratory wheezes at peak exercise. 4. Functional capacity is excellent for age 5. Nuclear images pending Myocardial perfusion imaging study: Technique: The patient was injected with 14.7 mCi of technetium 99m Cardiolite and subsequently rest SPECT Cardiolite nuclear imaging was obtained in the horizontal long, vertical long, and short axis views. The patient exercised on a Jerry protocol. Please see above for details. The patient was injected with 44.8 mCi of technetium 99m Cardiolite and subsequently stress SPECT Cardiolite nuclear imaging was obtained in the horizontal long, vertical long, and short axis views. A gated Cardiolite study at peak stress was obtained. Interpretation: Rest and stress SPECT Cardiolite nuclear imaging status post realignment, normalization, and attenuation correction, demonstrates no evidence of ischemia or infarction. The gated Cardiolite study demonstrates no significant regional wall motion abnormalities. The reported LVEF is greater than 70%. Impression: 1. There is no evidence of significant ischemia or infarction. 2. The gated Cardiolite study reports an LVEF of greater than 70%. This note was generated with [employer] software. It may contain incorrect words, spelling, and punctuation that were not noted in checking the note before signing.
== END | disposition home or self-care (01) ==
LOC: CVS 06:44
PROVIDERS: PCP Family Medicine; Referring Provider Family Medicine; Visit Provider Family Medicine
DX: R42 Dizziness and giddiness (principal); R06.02 Shortness of breath
CPT/HCPCS: 78452; 93017; 93880; A9500; A4216

== ENCOUNTER 2024-08-03 07:09 | Inpatient (IN) | payer MEDICARE, OTHER, SELFPAY ==
[2024-08-03] VITALS (15 sets, daily range): BP systolic 105–139; BP diastolic 61–80; PULSE 62–80; RESP 16–24; TEMP 36.6–36.9; O2SAT 91–99; BMI 31.5; BMI 29.7
--- NOTE | 2024-08-03 07:23 | EKG12_ITS ---
Test Reason : CP Blood Pressure : / mmHG Vent. Rate : 065 BPM Atrial Rate : 065 BPM P-R Int : 136 ms QRS Dur : 094 ms QT Int : 390 ms P-R-T Axes : 052 004 031 degrees QTc Int : 405 ms Normal sinus rhythm POSSIBLE PERICARDITIS ABNORMAL ECG Confirmed by Jackson Blake ([id number]), writer editor DARINEL REES ([id number]) on 08/05/2024 10:03:34 AM Referred By: DAVID Confirmed By:Jackson Blake
--- NOTE | 2024-08-03 07:24 | ED.VIS.CHEST ---
HPI History of Present Illness Chief Complaint: Chest Pain Informant: patient and EMS Narrative Narrative: 79-year-old male presenting to the emergency room with a chief complaint of chest pain. Patient notes a history of hypertension hypercholesterolemia. He states he recently underwent cardiac stress testing in June. Patient reports that around 230 this morning he was awoken from sleep with a sharp midsternal chest pain. It is worse with breathing and he states that he can occasionally find a position that feels somewhat better. It is not worse with movement or touch. He denies any vomiting. States he has not experienced this before. No history of DVT PE. He denies any recent illnesses insect bites/stings immunizations or any immunosuppressive states. [facility] Medical History Hypercholesterolemia Hypertension Home Medications ?Medication ?Instructions ?Recorded ?Last Taken ?Type aspirin 81 mg chewable tablet 81 mg PO DAILY@0800 11/29/16 07/24/17 History hydrochlorothiazide 12.5 mg capsule 12.5 mg PO DAILY 12/06/16 Unknown History hydrocodone-acetaminophen 5-325mg 1 - 2 tab PO Q4H PRN PRN Pain ##15 12/06/16 Unknown Rx 5mg-325mg lisinopril 20 mg tablet 20 mg PO DAILY 12/06/16 Unknown History simvastatin 40 mg tablet 40 mg PO QHS 12/06/16 Unknown History hydrocodone-acetaminophen 5-325mg 1 tab PO Q6H PRN PRN Pain 3 days 05/16/21 Unknown Rx 5mg-325mg #12 TABLETS nortriptyline 10 mg capsule 10 mg PO QHS 05/16/21 Unknown History ondansetron 4 mg disintegrating 4 mg PO Q6H PRN PRN Nausea #10 tabs 05/16/21 Unknown Rx tablet Allergy/AdvReac Type Severity Reaction Status Date / Time No Known Allergies Allergy Verified 08/03/24 07:09 Surgical History S/P cholecystectomy History of cochlear implant S/P ureteral stent placement Social History Smoking Status: Never smoker substance use type: does not use ROS ROS ED Constitutional Constitutional ED: Denies chills, fever(s) or weight loss Eyes Eyes: Denies change in vision or diplopia ENT ENT ED: Denies ear pain, rhinorrhea or sore throat Cardiovascular Cardiovascular: Reports as per HPI and chest pain; Denies orthopnea, palpitations or racing heartbeat Respiratory/Chest Respiratory/Chest: Denies cough, dyspnea, dyspnea on exertion or orthopnea Gastrointestinal Gastrointestinal: Denies abdominal pain, diarrhea, nausea or vomiting Genitourinary Genitourinary ED: Denies dysuria, hematuria or urinary frequency Musculoskeletal Musculoskeletal: Denies arthralgias, back pain, myalgias or neck pain Integumentary Denies abscess or rash Neurologic Neurologic: Denies headache(s) or weakness Psychiatric Psychiatric: Denies anxiety, depression, suicidal ideation or suicidal thoughts Endocrine Endocrinology: Denies polydipsia, polyphagia or polyuria Allergic/Immunologic Allergic/Immunologic ED: Denies mouth swelling, tongue swelling or urticaria EXAM Physical Exam Const Vital Signs: 08/03/24 07:09 08/03/24 07:36 08/03/24 07:53 Temperature 97.8 F Temperature Source Oral Pulse Rate 66 80 63 Respiratory Rate 16 Blood Pressure 120/68 112/71 109/64 Blood Pressure Mean 85 Pulse Ox 91 Oxygen Delivery Method Oxygen Flow Rate (L/min) 08/03/24 08:04 08/03/24 08:08 08/03/24 09:00 Temperature Temperature Source Pulse Rate 63 64 63 Respiratory Rate 24 H 19 H Blood Pressure 110/64 110/64 122/70 H Blood Pressure Mean 79 87 Pulse Ox 98 99 Oxygen Delivery Method Nasal Cannula Oxygen Flow Rate (L/min) 2 08/03/24 10:00 08/03/24 11:00 Temperature Temperature Source Pulse Rate 65 78 Respiratory Rate 22 H 22 H Blood Pressure 129/74 H 128/80 H Blood Pressure Mean 92 96 Pulse Ox 97 96 Oxygen Delivery Method Nasal Cannula Room Air Oxygen Flow Rate (L/min) 2 Positive well nourished and well developed General Appearance ED: well developed HEENT Reports normocephalic, head/scalp atraumatic and moist mucous membranes Eyes PERRL and EOMs intact bilaterally Neck no lymphadenopathy, supple and no JVD Resp normal respiratory effort and clear to auscultation bilaterally Cardio regular rate, regular rhythm and no murmurs GI normal to inspection, nondistended, normoactive bowel sounds and non-tender Palpation: soft Back/Spine no CVA tenderness and normal ROM Extremity normal to inspection General Extremety ED: Negative for edema General Extremity: Negative for edema Neuro oriented x3 and CN's II-XII intact bilaterally Sensorium / Orientation: alert Motor Exam: strength 5/5 throughout Psych mental status grossly normal Mood & Affect: Negative for depressed or tearful Skin no rashes or lesions noted and no wounds MDM MDM MDM Narrative Medical decision making narrative: Differential diagnosis includes but not limited to pulmonary embolism aortic dissection/aneurysm acute coronary syndrome pericarditis myocarditis esophagitis pleurisy pleural effusion pneumonia electrolyte abnormalities Coumadin coagulopathy White count nonspecifically elevated 11.8 with 81.5 neutrophils D-dimer 0.70 so age corrects to normal. 2 sets of cardiac enzymes are at 10 and 9. Lipase 48 liver enzymes within normal limits. BMP shows a glucose of 165 creatinine 1.1 with a BUN of 24. My independent interpretation of the chest x-ray is cardiomegaly. His initial EKG shows nonspecific ST abnormalities but concerning ST segments particularly 1 to V4 through V6. This was repeated in his ED course does not appear significantly changed. It is a cardiomegaly in the EKG was concerned about possible pericardial effusion and pericarditis. A CT of the chest demonstrates a mild to moderate pericardial effusion. CRP is elevated at 8.46. ESR is normal. Patient received morphine Zofran and nitroglycerin. I spoke with on-call grinding supervisor Dr. Blake. We will administer Toradol. We will get an echocardiogram plan for admission for evaluation. History & Record Review Discussion w/independent historian: EMS personnel and Patient Lab Data Attestation: I reviewed the patient's lab results. Labs: Laboratory Results - last 24 hr 08/03/24 08/03/24 07:45 09:47 WBC 11.8 H RBC 4.82 Hgb 15.0 Hct 45.5 MCV 94.4 H MCH 31.1 MCHC 33.0 RDW Std Deviation 44.0 H RDW Coeff of Jacob 12.8 Plt Count 209 MPV 9.7 Immature Gran % (Auto) 0.500 Neut % (Auto) 81.5 H Lymph % (Auto) 5.1 L [place] % (Auto) 12.3 H Eos % (Auto) 0.3 Baso % (Auto) 0.3 Absolute Neuts (auto) 9.6 H Absolute Lymphs (auto) 0.60 L Nucleated RBC % 0 ESR 5 D-Dimer Quant (PE/DVT) 0.70 H* Sodium 139 Potassium 4.8 Chloride 107 Carbon Dioxide 25.0 Anion Gap 7 BUN 24 H Creatinine 1.10 Estim Creat Clear Calc 72.63 Est GFR (MDRD) Af Amer 83 Est GFR (MDRD) Non-Af 69 BUN/Creatinine Ratio 21.8 H Glucose 165 H Calcium 9.3 Total Bilirubin 0.90 Direct Bilirubin 0.25 AST 23 ALT 29 Alkaline Phosphatase 93 Troponin I High Sens 10 9 C-React Prot Ext Range 8.46 H Total Protein 6.6 Albumin 3.3 Globulin 3.3 Lipase 48 Radiography Diagnostic Testing: Clinical Impression(s) from Imaging Studies Chest X-Ray 08/03/24 07:45 IMPRESSION: Cardiomegaly with mild pulmonary vascular congestion. Electronically Signed: Hiro Rashid MD at 8:28 EDT , Chest CTA 08/03/24 09:13 IMPRESSION: No pulmonary embolus. No thoracic aortic aneurysm or dissection. Elevation of the left hemidiaphragm with left basilar atelectasis. No pulmonary infiltrates or pleural effusions. Small to moderate pericardial effusion. Electronically Signed: Hiro Rashid MD at 9:59 EDT , EKG Initial EKG: Attestation: I personally reviewed and interpreted this EKG as follows: Comments: Normal sinus rhythm ventricular rate of [address] abnormality noted in leads I and II compared to EKG dated 08 July 2024 Prior EKG tracings: available for review Management Discussion w/another healthcare provider: Hospitalist (Dr Bill) and Director Channel (Dr Blake) Discharge Plan Dx/Rx/DC Orders Clinical Impression: Chest pain, Acute pericardial effusion Disposition Disposition: [facility]
[2024-08-03] MEDS: 0.9% Normal Saline (1000mL) 1,000 ML 250 ML IV ×2 (07:34→09:17)
[2024-08-03] MEDS: Aspirin 81 MG TAB.CHEW 324 MG PO (07:34)
[2024-08-03] MEDS: Ondansetron 4 MG/2 ML Vial IV (07:35)
[2024-08-03] MEDS: Morphine 4 MG/ML Syringe IV (07:35)
[2024-08-03] MEDS: Nitroglycerin SL (ED/IMG/CATH) 0.4 MG TABLET SL ×3 (07:36→08:04)
--- NOTE | 2024-08-03 07:45 | RAD_ITS ---
STUDY: X-RAY CHEST REASON FOR EXAM: Male, 79 years old. Chest pain TECHNIQUE: Frontal view of the chest COMPARISON: 03/04/2006 FINDINGS: There are mild congestive changes noted. The lungs are otherwise clear. There are no pleural effusions. There is no pneumothorax. The heart is enlarged. The visualized osseous structures are within normal limits. RAD/Chest 1 View (Portable) IMPRESSION: Cardiomegaly with mild pulmonary vascular congestion. Electronically Signed: Hiro Rashid MD at 8:28 EDT ,
[2024-08-03 08:03] LABS: Absolute Neutrophil Count 9.6 X10^3/uL (2.0-7.7); Basophil# 0.03 X10^3/uL; Basophil% 0.3 % (0-1); Eosinophil# 0.04 X10^3/uL; Eosinophils% 0.3 % (0-5); Hematocrit 45.5 % (40-54); Lymphocyte % 5.1 % (19-41); Mean Corpuscular Hgb 31.1 pg (27.0-32.0); Mean Corpuscular Volume 94.4 fL (80-94); Mean Platelet Vol. 9.7 fl (6.2-12.0); Monocyte# 1.44 X10^3/uL; Monocyte% 12.3 % (0-10); NRBC Flagged by Analyzer 0 % (0-5); Neutrophil # 9.58 X10^3/uL (2.7-7.7); Neutrophil % 81.5 % (47-70); POSITIVE DIFFERENTIAL YES; Platelet Count 209 K/mm3 (150-450); RBC Distribution Width CV 12.8 % (11.6-14.6); Red Blood Count 4.82 M/mm3 (4.6-6.2); White Blood Count 11.8 K/mm3 (4.4-11.0)
[2024-08-03 08:19] LABS: AST(SGOT) 23 U/L (15-37); Alanine Aminotransfer ALT/SGPT 29 U/L (16-61); Albumin, Serum 3.3 g/dL (3.2-5.0); Alkaline Phosphatase 93 U/L (45-117); Anion Gap 7 (5-15); BUN 24 mg/dL (7-18); BUN/Creat Ratio 21.8 RATIO (10-20); Bilirubin, Direct 0.25 mg/dL (0.00-0.30); Calcium,Total 9.3 mg/dL (8.5-10.1); Chloride 107 mmol/L (98-107); EST Glomerular Filtration Rate 69 mL/min (>60); Est Glom Filt Rate - Afr Amer 83 mL/min (>60); Estimated Creatinine Clearance 72.63 ml/min; Globulin 3.3 g/dL (2.2-4.2); Glucose 165 mg/dL (74-106); Lipase 48 U/L (13-75); Potassium 4.8 mmol/L (3.5-5.1); Protein, Total 6.6 g/dL (6.4-8.2); Sodium Level 139 mmol/L (136-145); Troponin-I HS (w/2H Reflex) 10 pg/mL (3.0-78.0)
--- NOTE | 2024-08-03 09:13 | CT_ITS ---
STUDY: CTA CHEST WITH CONTRAST REASON FOR EXAM: Male, 79 years old. Chest pain RADIATION DOSAGE (If Supplied By Facility): CTDIvol = ( 16 ) mGy, DLP = ( 508 ) mGycm TECHNIQUE: Transaxial imaging was performed following intravenous administration of 100 ml of Isovue-370 contrast material. Coronal and sagittal reformatted images were created. 3D post processed images were created. CT scan performed according to ALARA principles. Automated exposure control used during exam. COMPARISON: No relevant prior comparison study available FINDINGS: LUNGS: There are no pulmonary infiltrates. There is atelectasis at the left lung base. PLEURAL SPACE: There are no pleural effusions. There is no pneumothorax. MEDIASTINUM: The heart is normal in size. There is a small to moderate pericardial effusion. There is no pneumomediastinum. There is no thoracic lymphadenopathy. There is elevation of the left hemidiaphragm. VESSELS There is no pulmonary embolus. The pulmonary artery is normal in caliber. There is no thoracic aortic aneurysm or dissection. UPPER ABDOMEN: Images through the upper abdomen demonstrate no significant abnormality. BONES: There are degenerative changes noted in the spine. There are no destructive osseous lesions. SOFT TISSUES: The visualized soft tissues are unremarkable. CT/CTA Chest W/WO Contrast IMPRESSION: No pulmonary embolus. No thoracic aortic aneurysm or dissection. Elevation of the left hemidiaphragm with left basilar atelectasis. No pulmonary infiltrates or pleural effusions. Small to moderate pericardial effusion. Electronically Signed: Hiro Rashid MD at 9:59 EDT ,
--- NOTE | 2024-08-03 09:13 | ED.RN ---
d-dimer 0.70. Dr. Allen notified
[2024-08-03 09:52] LABS: Reflex Troponin-HS? (from REC) Y
--- NOTE | 2024-08-03 10:07 | EKG12_ITS ---
Test Reason : REPEAT Blood Pressure : / mmHG Vent. Rate : 064 BPM Atrial Rate : 064 BPM P-R Int : 140 ms QRS Dur : 090 ms QT Int : 392 ms P-R-T Axes : 051 004 033 degrees QTc Int : 404 ms Critical Test Result: STEMI Normal sinus rhythm ST ELEVATION CONSISTER INJURY OR PERICARDITIS Abnormal ECG Confirmed by Jackson Blake ([id number]), graphics editor DARINEL REES ([id number]) on 08/05/2024 10:04:47 AM Referred By: Confirmed By:Jackson Blake
[2024-08-03 10:16] LABS: Troponin-I HS 9 pg/mL (3.0-78.0)
[2024-08-03 10:26] LABS: CRP 8.46 mg/L (0.0-3.0)
[2024-08-03 10:43] LABS: Erythrocyte Sedimentation Rate 5 mm/hr (0-20)
[2024-08-03] MEDS: Ketorolac 15 MG/ML Vial IV (11:09)
--- NOTE | 2024-08-03 11:14 | NURSING ---
DR ROLANDO SANCHEZ
--- NOTE | 2024-08-03 11:15 | ECHOD_ITS ---
Reason For Study: PERICARDIAL EFFUSION Procedure This was a 2D Doppler, Color Flow transthoracic echocardiogram. Exam performed portable in ED. Left Ventricle Normal LV size. The estimated ejection fraction is 65 %. No evidence for diastolic dysfunction. No regional wall motion abnormalities noted. Right Ventricle Normal RV size. Normal systolic function. Atria The left and right atria are normal. No doppler evidence for ASD. Mitral Valve There is no mitral valve stenosis. No mitral valve insufficiency. Tricuspid Valve There is no tricuspid stenosis. Unable to estimate RV systolic pressure due to inadequate jet, pulmonary artery pressure probably normal. Aortic Valve Trisinus/trileaflet aortic valve. Aortic sclerosis, no stenosis. There is no aortic stenosis. No aortic valve insufficiency. Pulmonic Valve There is no pulmonic valvular stenosis. No pulmonic valve insufficiency. Great Vessels Normal aortic root. Pericardium/Pleural Moderate pericardial effusion. There are no echocardiographic indications of cardiac tamponade. MMode/2D Measurements & Calculations LVIDd: 4.2 cm IVSd: 1.3 cm LVOT diam: 2.0 cm LVIDs: 2.4 cm LVPWd: 1.3 cm LVOT area: 3.1 cm2 FS: 42.1 % Ao root diam: 3.6 cm LAV(MOD-sp4): 37.5 ml LVAd ap4: 23.5 cm2 LVLd ap4: 7.8 cm EDV(MOD-sp4): 57.3 ml EDV(sp4-el): 59.6 ml LVAs ap4: 12.2 cm2 LVLs ap4: 6.3 cm ESV(MOD-sp4): 20.0 ml ESV(sp4-el): 20.1 ml EF(MOD-sp4): 65.1 % EF(sp4-el): 66.2 % SV(MOD-sp4): 37.3 ml SV(sp4-el): 39.5 ml LA A4 area: 17.2 cm2 LA dimension(2D): 3.5 cm RA A4 area: 9.6 cm2 Time Measurements MV dec time: 0.28 sec Doppler Measurements & Calculations MV E max alex: 54.0 cm/sec Lat Peak E' Alex: 7.0 cm/sec Med Peak E' Alex: 8.5 cm/sec MV A max alex: 62.4 cm/sec E/E' lat: 7.7 E/E' med: 6.4 MV E/A: 0.87 MV V2 max: 73.1 cm/sec Ao V2 max: 120.3 cm/sec MV max P.1 mmHg MV dec slope: 203.1 cm/sec2 Ao max P.8 mmHg MV V2 mean: 44.8 cm/sec Ao V2 mean: 84.9 cm/sec MV mean P.93 mmHg Ao mean P.3 mmHg MV V2 VTI: 20.8 cm Ao V2 VTI: 25.1 cm AV (velocity ratio): 0.87 MVA(VTI): 3.3 cm2 RAMIREZ(I,D): 2.7 cm2 RAMIREZ(V,D): 2.6 cm2 LV V1 max: 101.2 cm/sec SV(LVOT): 68.6 ml LV V1 max P.1 mmHg LV V1 mean P.2 mmHg LV V1 mean: 70.8 cm/sec LV V1 VTI: 21.8 cm ECHO/Echo Complete Interpretation Summary The estimated ejection fraction is 65 %. No evidence for diastolic dysfunction. Moderate pericardial effusion. There are no echocardiographic indications of cardiac tamponade. Ordering Physician: Te Bill Referring Physician: FER IBANEZ Performed By: Caitlin Corona RCS
--- NOTE | 2024-08-03 11:20 | NURSING ---
PCU OBS CHEST PAIN ROLANDO
--- NOTE | 2024-08-03 11:43 | HP.PCM.HOS_ITS ---
HPI - General General Date of Admission: 08/03/24 Date of Service: 08/03/24 Chief Complaint: Chest pain HPI Narrative BHAVNA ROCA, is a 79 M who presents presents with chest pain. Patient was in normal state of health up at about 430 where he developed midsternal chest pain associated with shortness of breath. Patient had a stress test back in June that was negative and that was performed because he was having shortness of breath he was not having chest pain. He presented emergency room and had some ST elevations in inferior leads, normal ESR and troponins. CAT scan did not show up pericardial effusion. Concern was pericarditis. ED reached out to Dr. Blake, of cardiology, who recommended dose of ketorolac. [facility] Medical History (Updated 08/03/24 @ 12:[address] Jackson Blake MD) Hypercholesterolemia Hypertension Home Medications ?Medication ?Instructions ?Recorded ?Last Taken ?Type aspirin 81 mg chewable tablet 81 mg PO DAILY@0800 11/29/16 07/24/17 History lisinopril 20 mg tablet 20 mg PO DAILY 12/06/16 Unknown History simvastatin 40 mg tablet 40 mg PO QHS 12/06/16 Unknown History magnesium oxide 250 mg PO DAILY 08/03/24 Unknown History multivitamin (Daily Multi-Vitamin 1 tab PO DAILY 08/03/24 Unknown History tablet) riboflavin (vitamin B2) 400 mg 400 mg PO DAILY 08/03/24 Unknown History tablet sertraline 100 mg tablet 150 mg PO DAILY 08/03/24 Unknown History Allergy/AdvReac Type Severity Reaction Status Date / Time No Known Allergies Allergy Verified 08/03/24 07:09 Family History Other Heart disease Surgical History S/P cholecystectomy History of cochlear implant S/P ureteral stent placement Social History Smoking Status: Never smoker substance use type: does not use ROS ROS Narrative All review of systems were negative except as mentioned above in the history of present illness and the other review of systems. Vital Signs Vital Signs Vital Signs: 08/03/24 07:09 08/03/24 07:36 08/03/24 07:53 Temperature 36.6 C Temperature Source Oral Pulse Rate 66 80 63 Respiratory Rate 16 Blood Pressure 120/68 112/71 109/64 Blood Pressure Mean 85 Pulse Ox 91 Oxygen Delivery Method Oxygen Flow Rate (L/min) 08/03/24 08:04 08/03/24 08:08 08/03/24 09:00 Temperature Temperature Source Pulse Rate 63 64 63 Respiratory Rate 24 H 19 H Blood Pressure 110/64 110/64 122/70 H Blood Pressure Mean 79 87 Pulse Ox 98 99 Oxygen Delivery Method Nasal Cannula Oxygen Flow Rate (L/min) 2 08/03/24 10:00 08/03/24 11:00 08/03/24 11:15 Temperature 36.6 C Temperature Source Pulse Rate 65 78 66 Respiratory Rate 22 H 22 H 24 H Blood Pressure 129/74 H 128/80 H 139/76 H Blood Pressure Mean 92 96 97 Pulse Ox 97 96 95 Oxygen Delivery Method Nasal Cannula Room Air Oxygen Flow Rate (L/min) 2 Weight Weight: 108.4 kg Body Mass Index (BMI) 31.5 Physical Exam Const alert and no apparent distress HEENT normocephalic, head/scalp atraumatic and hearing grossly normal bilaterally Resp normal respiratory effort and no retractions Resp Narrative: Distant heart sounds Cardio regular rate, regular rhythm, S1 normal heart sound and S2 normal heart sound GI normal to inspection, nondistended, normoactive bowel sounds, soft to palpation, non-tender and non-distended Extremity normal to inspection and no clubbing, cyanosis or edema Neuro moves all extremities and no focal motor deficits Sensorium / Orientation: awake and alert Psych affect normal Results Lab / Micro Data Attestation: I reviewed the patient's lab results. 08/03/24 07:45 08/03/24 07:45 Labs: Laboratory Results - last 24 hr 08/03/24 07:45: WBC 11.8 H, RBC 4.82, Hgb 15.0, Hct 45.5, MCV 94.4 H, MCH 31.1, MCHC 33.0, RDW Std Deviation 44.0 H, RDW Coeff of Jacob 12.8, Plt Count 209, MPV 9.7, Immature Gran % (Auto) 0.500, Neut % (Auto) 81.5 H, Lymph % (Auto) 5.1 L, M margot % (Auto) 12.3 H, Eos % (Auto) 0.3, Baso % (Auto) 0.3, Absolute Neuts (auto) 9.6 H, Absolute Lymphs (auto) 0.60 L, Nucleated RBC % 0, ESR 5, D-Dimer Quant (PE/DVT) 0.70 H*, Sodium 139, Potassium 4.8, Chloride 107, Carbon Dioxide 25.0, Anion Gap 7, BUN 24 H, Creatinine 1.10, Estim Creat Clear Calc 72.63, Est GFR (MDRD) Af Amer 83, Est GFR (MDRD) Non-Af 69, BUN/Creatinine Ratio 21.8 H, G lucose 165 H, Calcium 9.3, Total Bilirubin 0.90, Direct Bilirubin 0.25, AST 23, ALT 29, Alkaline Phosphatase 93, Troponin I High Sens 10, C-React Prot Ext Range 8.46 H, Total Protein 6.6, Albumin 3.3, Globulin 3.3, Lipase 48 08/03/24 09:47: Troponin I High Sens 9 EKG Initial EKG: Attestation: I personally reviewed and interpreted this EKG as follows: Prior EKG tracings: available for review EKG Rhythm Intrepretation: Sinus Rhythm (Inferior ST elevations) Imaging Radiology Impression Chest X-Ray 08/03/24 07:45 IMPRESSION: Cardiomegaly with mild pulmonary vascular congestion. Electronically Signed: Hiro Rashid MD at 8:28 EDT , Chest CTA 08/03/24 09:13 IMPRESSION: No pulmonary embolus. No thoracic aortic aneurysm or dissection. Elevation of the left hemidiaphragm with left basilar atelectasis. No pulmonary infiltrates or pleural effusions. Small to moderate pericardial effusion. Electronically Signed: Hiro Rashid MD at 9:59 EDT , Assessment & Plan Assessment/Plan (1) Pericarditis: PLAN: Suspected Start indomethacin Cardiology consultation (2) Acute pericardial effusion: PLAN: May be related with the pericarditis No evidence of CHF on CAT scan. Echo pending PLAN: Plan Chronic conditions * Hypertension: Continue with lisinopril and HCTZ. * Depression: Continue with sertraline * Hyperlipidemia: Given simvastatin * VTE prophylaxis: Low risk at indicated at this time. CODE STATUS: Addressed with the patient. Patient wishes to be full code Charges/Coding Visit Charges Inpatient E&M: 11543 Init Hosp L3
--- NOTE | 2024-08-03 12:19 | CON.PCM.CA_ITS ---
Assessment & Plan Assessment/Plan (1) Acute pericardial effusion: PLAN: Patient has a moderate pericardial effusion documented by CT scan and echocardiography. There are no echo criteria consistent with pericardial tamponade. The patient is not short of breath lying flat in the bed. The patient's chest symptoms have markedly improved with nonsteroidal and morphine therapy in the emergency department. The patient is not hypoxic. He does have an elevated white count but no fevers. C-reactive protein is minimally elevated. D-dimer was elevated but CT did not show any evidence of pulmonary emboli or dissection. And the patient's troponin originally was 10 delta troponin was 9. We recommend treat the patient with nonsteroidals and colchicine for assumed acute pericarditis. Will monitor the patient for hemodynamic stability and repeat the echocardiogram as a limited evaluation in the next 48 hours. (2) Pericarditis: QUALIFIERS: Pericarditis type: idiopathic Chronicity: acute Q ualified Code(s): I30.0 - Acute nonspecific idiopathic pericarditis PLAN: The patient is EKG is definitely different than the EKG he had with his recent stress test. It is consistent with pericarditis. There is J-point elevation and some mild OK interval depression. He does have a pericardial effusion as noted above. Will institute indomethacin and colchicine 0.6 mg 2 times daily. This dose will need to be decreased if diarrhea develops. Would recommend treatment for 4 to 6 weeks with indomethacin in 6 months with colchicine. There is no obvious etiology of the pericarditis. (3) Chest pain: QUALIFIERS: Chest pain type: chest pain on breathing Qualified Code(s): R07.1 - Chest pain on breathing PLAN: The chest discomfort is consistent with an inflammatory cardiopulmonary etiology. We will recheck troponins and check his EKG in 24 hours. (4) Hypertension: QUALIFIERS: Hypertension type: primary hypertension Qualified Code(s): I10 - Essential (primary) hypertension PLAN: Will continue home blood pressure medicines with lisinopril 20 mg daily. (5) Hypercholesterolemia: PLAN: Will continue the patient's simvastatin 40 mg daily. The patient does not have any known atherosclerotic disease. Targeted LDL cholesterol should be less than 100. PLAN: Plan 1. Indomethacin 50 mg 3 times daily. 2. Colchicine 0.6 mg 2 times daily. Hold if diarrhea develops. 3. Will repeat limited echo in 48 hours. To reassess pericardial effusion. 4. Monitor on telemetry for possible paroxysmal atrial fibrillation. The patient has remained in sinus rhythm to this point. HPI Consult Data Date of Consult: 08/03/24 HPI Narrative Reason for Consultation: Chest pain and pericardial effusion HPI Narrative: BHAVNA ROCA, is a 79 M who presents sudden onset of sharp discomfort that was worse with deep inspiration and leaning back or sitting forward. The patient denied any recent viral infections he has not been around anyone's been sick he has not had any fevers or chills. He has no rheumatologic issues that he is aware of. He has never had any cardiac issues to his knowledge. There is no significant family history of coronary disease. Patient's cardiac isoenzymes were negative x 2 sets in the emergency department. Patient does have a history of hypertension and hyperlipidemia. He has never smoked. This onset of symptoms was sudden and it awoke him from sleep at about 2 AM this morning. The patient was treated in the emergency department with indomethacin morphine and Toradol with marked improvement in his chest symptoms. The patient has no previous history of pericarditis. The patient had a negative treadmill stress test the patient went 8 and half minutes on a Jerry protocol achieving 85% of age-predicted heart rate. There was no no evidence of any ischemia on the EKG or on the nuclear scans. The patient did develop some wheezing at the end of exercise. The patient's EKG showed EKG changes consistent with pericarditis. His sed rate however was normal. A CT scan revealed pericardial effusion. An echocardiogram done in the emergency department showed a moderate pericardial effusion with no evidence of tamponade the IVC collapsed with inspiration. [facility] Medical History (Updated 08/03/24 @ 12:[address] Jackson Blake MD) Hypercholesterolemia Hypertension Home Medications ?Medication ?Instructions ?Recorded ?Last Taken ?Type aspirin 81 mg chewable tablet 81 mg PO DAILY@0800 11/29/16 07/24/17 History lisinopril 20 mg tablet 20 mg PO DAILY 12/06/16 Unknown History simvastatin 40 mg tablet 40 mg PO QHS 12/06/16 Unknown History nortriptyline 10 mg capsule 10 mg PO QHS 05/16/21 Unknown History magnesium oxide 250 mg PO DAILY 08/03/24 Unknown History multivitamin (Daily Multi-Vitamin 1 tab PO DAILY 08/03/24 Unknown History tablet) riboflavin (vitamin B2) 400 mg 400 mg PO DAILY 08/03/24 Unknown History tablet sertraline 100 mg tablet 150 mg PO DAILY 08/03/24 Unknown History Allergy/AdvReac Type Severity Reaction Status Date / Time No Known Allergies Allergy Verified 08/03/24 07:09 Family History Other Heart disease Surgical History S/P cholecystectomy History of cochlear implant S/P ureteral stent placement Social History Smoking Status: Never smoker substance use type: does not use ROS Constitutional Constitutional: Reports as per HPI Eyes Eyes: Reports systems reviewed and no addt'l complaints, except as documented ENT HEENT: Reports systems reviewed and no addt'l complaints, except as documented Cardiovascular Cardiovascular: Reports as per HPI Respiratory/Chest Respiratory/Chest: Reports as per HPI Gastrointestinal Gastrointestinal: Reports systems reviewed and no addt'l complaints, except as documented Genitourinary Genitourinary: Reports systems reviewed and no addt'l complaints, except as documented Musculoskeletal Musculoskeletal: Reports systems reviewed and no addt'l complaints, except as documented Integumentary Integumentary: Reports systems reviewed and no addt'l complaints, except as documented Neurologic Neurologic: Reports systems reviewed and no addt'l complaints, except as documented Psychiatric Psychiatric: Reports systems reviewed and no addt'l complaints, except as documented Endocrine Endocrinology: Reports systems reviewed and no addt'l complaints, except as documented Hematologic/Lymphatic Hematologic/Lymphatic: Reports systems reviewed and no addt'l complaints, except as documented Allergic/Immunologic Allergic/Immunologic: Reports systems reviewed and no addt'l complaints, except as documented Physical Exam Const alert and oriented x3 HEENT normocephalic Eyes EOMs intact bilaterally Neck no JVD Carotids: Negative for bruit Chest inspection of chest normal Resp normal respiratory effort Auscultation: crackles left base Cardio Rate: regular rate Rhythm: regular rhythm Heart Sounds: S1 normal and S2 normal; Negative for click, gallop, murmur or rub GI soft to palpation Extremity normal to inspection and no pedal edema Skin no rashes or lesions noted Neuro Neuro Narrative: Alert and oriented x 3 Psych mental status grossly normal Risk Stratification Risk Stratification Applicable: Yes Age >/= 65: Yes >/= 3 CAD Risk Factors (HTN, HLD, DM, family hx of CAD, or current smoker): No Aspirin Use in the Past 7 Days: Yes Severe Angina (>/= episodes in 24 hours): No EKG ST Changes >/= 0.5mm: Yes Positive Cardiac Marker: No ELOISE Risk Stratification Score: 3 ELOISE % Risk: 13% Risk Charges/Coding Visit Charges Inpatient E&M: 21764 Init Hosp L3 Objective Data Vital Signs: Vital Signs Temp Pulse Resp BP Pulse Ox O2 Del Method O2 Flow Rate 98 F 74 24 H 105/61 95 Room Air 2 08/03/24 11:15 08/03/24 12:00 08/03/24 12:00 08/03/24 12:00 08/03/24 12:00 08/03/24 12:00 08/03/24 10:00 Oxygen Flow Rate (L/min) 2 Oxygen Delivery Method Room Air Weight: 238 lb 15.697 oz Body Mass Index (BMI) 31.5 Intake & Output: Intake and Output for Last 24 Hours 08/01/24 08/02/24 08/03/24 23:59 23:59 23:59 Intake Total 429.17 / 429.17 Balance 429.17 / 429.17 Lab / Micro Data Attestation: I reviewed the patient's lab results. 08/03/24 07:45 08/03/24 07:45 Labs: Laboratory Results - last 24 hr 08/03/24 07:45: WBC 11.8 H, RBC 4.82, Hgb 15.0, Hct 45.5, MCV 94.4 H, MCH 31.1, MCHC 33.0, RDW Std Deviation 44.0 H, RDW Coeff of Jacob 12.8, Plt Count 209, MPV 9.7, Immature Gran % (Auto) 0.500, Neut % (Auto) 81.5 H, Lymph % (Auto) 5.1 L, M margot % (Auto) 12.3 H, Eos % (Auto) 0.3, Baso % (Auto) 0.3, Absolute Neuts (auto) 9.6 H, Absolute Lymphs (auto) 0.60 L, Nucleated RBC % 0, ESR 5, D-Dimer Quant (PE/DVT) 0.70 H*, Sodium 139, Potassium 4.8, Chloride 107, Carbon Dioxide 25.0, Anion Gap 7, BUN 24 H, Creatinine 1.10, Estim Creat Clear Calc 72.63, Est GFR (MDRD) Af Amer 83, Est GFR (MDRD) Non-Af 69, BUN/Creatinine Ratio 21.8 H, G lucose 165 H, Calcium 9.3, Total Bilirubin 0.90, Direct Bilirubin 0.25, AST 23, ALT 29, Alkaline Phosphatase 93, Troponin I High Sens 10, C-React Prot Ext Range 8.46 H, Total Protein 6.6, Albumin 3.3, Globulin 3.3, Lipase 48 08/03/24 09:47: Troponin I High Sens 9 Rhythm Strip Rhythm Strip: Sinus Rhythm Rate: 75 Cardiology Labs/Tests 08/03/24 07:45: WBC 11.8 H, RBC 4.82, Hgb 15.0, Hct 45.5, MCV 94.4 H, MCH 31.1, MCHC 33.0, Plt Count 209, MPV 9.7, Immature Gran % (Auto) 0.500, Neut % (Auto) 81.5 H, Lymph % (Auto) 5.1 L, [place] % (Auto) 12.3 H, Eos % (Auto) 0.3, Baso % (Auto) 0.3, Absolute Neuts (auto) 9.6 H, Nucleated RBC % 0, D-Dimer Quant (PE/DVT) 0.70 H*, Sodium 139, Potassium 4.8, Chloride 107, Carbon Dioxide 25.0, Anion Gap 7, BUN 24 H, Creatinine 1.10, Est GFR (MDRD) Af Amer 83, Est GFR (MDRD) Non-Af 69, BUN/Creatinine Ratio 21.8 H, Glucose 165 H, Calcium 9.3, Total Bilirubin 0.90, Direct Bilirubin 0.25 Rhythm: EKG: ECHO: Stress Test: Cardiac Cath: PCI: CT Surgery: Holter monitor: EPS: PPM: CXR: Chest CT Scan: Radiography Diagnostic Testing: Radiology Impression Chest X-Ray 08/03/24 07:45 IMPRESSION: Cardiomegaly with mild pulmonary vascular congestion. Electronically Signed: Hiro Rashid MD at 8:28 EDT , Chest CTA 08/03/24 09:13 IMPRESSION: No pulmonary embolus. No thoracic aortic aneurysm or dissection. Elevation of the left hemidiaphragm with left basilar atelectasis. No pulmonary infiltrates or pleural effusions. Small to moderate pericardial effusion. Electronically Signed: Hiro Rashid MD at 9:59 EDT ,
[2024-08-03] MEDS: Acetaminophen 500 MG Tablet 1000 MG PO ×2 (14:57→21:50)
[2024-08-03] MEDS: Indomethacin 25 MG Capsule 50 MG PO (17:31)
[2024-08-03] MEDS: Sertraline 100 MG Tablet 150 MG PO (17:32)
[2024-08-03] MEDS: Aspirin 81 MG TAB.CHEW PO ×2 (17:34→17:38)
[2024-08-03] MEDS: Colchicine 0.6 MG TABLET PO ×2 (17:36→21:50)
[2024-08-03] MEDS: Lisinopril 20 MG Tablet PO (17:41)
--- NOTE | 2024-08-03 19:00 | NURSING ---
emergency documentation in effect 08/03/241899
[2024-08-03] MEDS: oxyCODONE 5 MG Tablet PO (19:28)
[2024-08-03] MEDS: Atorvastatin Calcium 20 MG Tablet PO (21:50)
[2024-08-04 03:30] VITALS: BP 128/69; PULSE 58; RESP 18; TEMP 36.5; O2SAT 93
[2024-08-04] MEDS: Acetaminophen 500 MG Tablet 1000 MG PO ×3 (05:06→20:04)
[2024-08-04 05:28] LABS: Anion Gap 5 (5-15); BUN 37 mg/dL (7-18); BUN/Creat Ratio 32.7 RATIO (10-20); Calcium,Total 8.9 mg/dL (8.5-10.1); Chloride 107 mmol/L (98-107); Creatinine, Serum 1.13 mg/dL (0.70-1.30); EST Glomerular Filtration Rate 67 mL/min (>60); Est Glom Filt Rate - Afr Amer 81 mL/min (>60); Estimated Creatinine Clearance 70.81 ml/min; Glucose 118 mg/dL (74-106); Potassium 4.5 mmol/L (3.5-5.1); Sodium Level 137 mmol/L (136-145)
--- NOTE | 2024-08-04 08:36 | PN.HOSP_ITS ---
Reason for Visit Reason for Visit: Diagnoses Pure hypercholesterolemia, unspecified (08/03/24) Essential (primary) hypertension (08/03/24) Acute nonspecific idiopathic pericarditis (08/03/24) Acute pericarditis, unspecified (08/03/24) Disease of pericardium, unspecified (08/03/24) Chest pain on breathing (08/03/24) Subjective Subjective States is a chest pain is resolved and his dyspnea on exertion is improved as well. Objective Data Objective Data Vital Signs: Vital Signs Temp Pulse Resp BP Pulse Ox O2 Del Method O2 Flow Rate 36.5 C L 58 L 18 128/69 H 93 Room Air 2 08/04/24 03:30 08/04/24 03:30 08/04/24 03:30 08/04/24 03:30 08/04/24 03:30 08/04/24 03:30 08/03/24 10:00 Oxygen Flow Rate (L/min) 2 Oxygen Delivery Method Room Air Weight: 105.3 kg Body Mass Index (BMI) 29.7 Intake & Output: Intake and Output for Last 24 Hours 08/02/24 08/03/24 08/04/24 23:59 23:59 23:59 Intake Total Balance Lab / Micro Data 08/03/24 07:45 08/04/24 04:45 Labs: Laboratory Results - last 24 hr 08/03/24 07:45: ESR 5, D-Dimer Quant (PE/DVT) 0.70 H*, C-React Prot Ext Range 8.46 H 08/03/24 09:47: Troponin I High Sens 9 08/04/24 04:45: Sodium 137, Potassium 4.5, Chloride 107, Carbon Dioxide 25.0, Anion Gap 5, BUN 37 H, Creatinine 1.13, Estim Creat Clear Calc 70.81, Est GFR (MDRD) Af Amer 81, Est GFR (MDRD) Non-Af 67, BUN/Creatinine Ratio 32.7 H, G lucose 118 H, Calcium 8.9 Radiography Diagnostic Testing: Radiology Impression Chest CTA 08/03/24 09:13 IMPRESSION: No pulmonary embolus. No thoracic aortic aneurysm or dissection. Elevation of the left hemidiaphragm with left basilar atelectasis. No pulmonary infiltrates or pleural effusions. Small to moderate pericardial effusion. Electronically Signed: Hiro Rashid MD at 9:59 EDT , Echocardiogram 08/03/24 11:15 Interpretation Summary The estimated ejection fraction is 65 %. No evidence for diastolic dysfunction. Moderate pericardial effusion. There are no echocardiographic indications of cardiac tamponade. Ordering Physician: Te Bill Referring Physician: FER IBANEZ Performed By: Caitlin Corona RCS Rhythm Strip Rhythm Strip: Sinus Rhythm Rate: 75 Physical Exam Const alert and no apparent distress Neck no lymphadenopathy Resp normal respiratory effort, no retractions, no use of accessory muscles and clear to auscultation bilaterally Cardio regular rate, regular rhythm, S1 normal heart sound and S2 normal heart sound GI normal to inspection, nondistended, normoactive bowel sounds, soft to palpation, non-tender and non-distended Extremity normal to inspection and no clubbing, cyanosis or edema Neuro oriented x3 and CN's II-XII intact bilaterally Assessment & Plan Assessment/Plan (1) Pericarditis: QUALIFIERS: Chronicity: acute Pericarditis type: idiopathic Q ualified Code(s): I30.0 - Acute nonspecific idiopathic pericarditis PLAN: Suspected On indomethacin with PPI and colchicine Cardiology consultation (2) Acute pericardial effusion: PLAN: May be related with the pericarditis No evidence of CHF on CAT scan. Echo shows EF of 65% and moderate pericardial effusion without tamponade Discussed with Dr. Blake, he recommends repeating echocardiogram on the and as long as he effusion is not any worse, patient can likely be discharged. PLAN: Plan Chronic conditions * Hypertension: Continue with lisinopril and HCTZ. * Depression: Continue with sertraline * Hyperlipidemia: Given simvastatin * VTE prophylaxis: Low risk at indicated at this time. CODE STATUS: Addressed with the patient. Patient wishes to be full code Charges/Coding Visit Charges Inpatient E&M: 87403 Subs Hosp L2
[2024-08-04 09:45] VITALS: BP 108/51; PULSE 63; RESP 16; TEMP 36.7; O2SAT 94
[2024-08-04 09:46] VITALS: O2SAT 94; O2SAT 96
[2024-08-04] MEDS: Indomethacin 25 MG Capsule 50 MG PO ×3 (09:48→18:01)
[2024-08-04] MEDS: Aspirin 81 MG TAB.CHEW PO (09:49)
[2024-08-04] MEDS: Sertraline 100 MG Tablet 150 MG PO (09:49)
[2024-08-04] MEDS: Colchicine 0.6 MG TABLET PO ×2 (09:49→20:04)
[2024-08-04] MEDS: Lisinopril 20 MG Tablet PO (09:49)
[2024-08-04] MEDS: Pantoprazole Sodium 40 MG Tablet PO (09:50)
[2024-08-04] MEDS: FLU VACCINE **HIGH DOSE** TV 24-25 180 MCG/0.5 ML SYRINGE IM (09:58)
--- NOTE | 2024-08-04 10:18 | PN.CARD_ITS ---
Subjective Subjective Patient reports that his pleuritic style chest discomfort resolved overnight. He has been up in the room without restrictions denies any shortness of breath PND orthopnea. The patient has no lower extremity edema by his report. He reports that he feels fine today. Objective Data Vital Signs: Vital Signs Temp Pulse Resp BP Pulse Ox O2 Del Method O2 Flow Rate 98.0 F 63 16 108/51 L 94 Room Air 2 08/04/24 09:45 08/04/24 09:45 08/04/24 09:45 08/04/24 09:45 08/04/24 09:46 08/04/24 09:45 08/03/24 10:00 Oxygen Flow Rate (L/min) 2 Oxygen Delivery Method Room Air Weight: 232 lb 2.348 oz Body Mass Index (BMI) 29.7 Intake & Output: Intake and Output for Last 24 Hours 08/02/24 08/03/24 08/04/24 23:59 23:59 23:59 Intake Total Balance Lab / Micro Data Attestation: I reviewed the patient's lab results. 08/03/24 07:45 08/04/24 04:45 Labs: Laboratory Results - last 24 hr 08/03/24 07:45: ESR 5, C-React Prot Ext Range 8.46 H 08/04/24 04:45: Sodium 137, Potassium 4.5, Chloride 107, Carbon Dioxide 25.0, Anion Gap 5, BUN 37 H, Creatinine 1.13, Estim Creat Clear Calc 70.81, Est GFR (MDRD) Af Amer 81, Est GFR (MDRD) Non-Af 67, BUN/Creatinine Ratio 32.7 H, G lucose 118 H, Calcium 8.9 Rhythm Strip Rhythm Strip: Sinus Rhythm Rate: 60 Cardiology Labs/Tests 08/04/24 04:45: Sodium 137, Potassium 4.5, Chloride 107, Carbon Dioxide 25.0, Anion Gap 5, BUN 37 H, Creatinine 1.13, Est GFR (MDRD) Af Amer 81, Est GFR (MDRD) Non-Af 67, BUN/Creatinine Ratio 32.7 H, Glucose 118 H, Calcium 8.9 Rhythm: EKG: ECHO: Stress Test: Cardiac Cath: PCI: CT Surgery: Holter monitor: EPS: PPM: CXR: Chest CT Scan: Radiography Diagnostic Testing: Radiology Impression Echocardiogram 08/03/24 11:15 Interpretation Summary The estimated ejection fraction is 65 %. No evidence for diastolic dysfunction. Moderate pericardial effusion. There are no echocardiographic indications of cardiac tamponade. Ordering Physician: Te Bill Referring Physician: FER IBANEZ Performed By: Caitlin Corona RCS Physical Exam Const alert and oriented x3 HEENT normocephalic Eyes EOMs intact bilaterally Neck no JVD Chest inspection of chest normal Resp normal respiratory effort and clear to auscultation bilaterally Cardio regular rate, regular rhythm, S1 normal heart sound, S2 normal heart sound, no murmurs, no rub and no gallops Cardio Narrative: Distant heart tones Jugular Venous Distention: Negative for JVD external exam normal Extremity no pedal edema Skin no rashes or lesions noted Neuro Neuro Narrative: Alert and oriented x 3 Psych mental status grossly normal Assessment & Plan Assessment/Plan (1) Acute pericardial effusion: PLAN: Patient denies any signs or symptoms of tamponade. There is no JVD he has no significant lower extremity edema he has been up in the room ambulating without dyspnea on exertion. Echocardiogram shows his ejection fraction is normal at 65% with a moderate circumferential pericardial effusion. There was no echocardiographic criteria of tamponade. (2) Pericarditis: QUALIFIERS: Pericarditis type: idiopathic Chronicity: acute Q ualified Code(s): I30.0 - Acute nonspecific idiopathic pericarditis PLAN: The patient's C-reactive protein was elevated although the ESR was normal. He had minimally elevated white count. His chest symptoms and EKG were consistent with pericarditis. And his symptoms have resolved with the combination of indomethacin and colchicine. The patient is denying any diarrhea from the colchicine. The patient needs to be reevaluated with a limited echo to make sure the effusion is not enlarging in the next 24 hours. If his echo is stable the patient can be discharged to home in the next 24 hours. The patient did have 1 short burst of nonsustained supraventricular tachycardia overnight. This was not atrial fibrillation. The rate was 120 bpm. (3) Hypertension: QUALIFIERS: Hypertension type: primary hypertension Qualified Code(s): I10 - Essential (primary) hypertension PLAN: Blood pressure stable on his current medical therapy. PLAN: Plan 1. Continue his current medical regiment of colchicine 0.6 mg twice daily and indomethacin 50 mg 3 times daily. 2. Indomethacin should be continued for 4 weeks. 3. Colchicine should be continued as tolerated for 6 months to reduce the risk of recurrent pericarditis. 4. Limited echo will be repeated 08/05/2024. If the effusion is stable the patient can be discharged to home. 5. Increase activities as tolerated. 6. Follow-up in the [facility] office in 7 to 10 days after discharge for EKG and reevaluation. Patient was instructed to call the office to schedule appointment. Charges/Coding Visit Charges Inpatient E&M: 89824 Subs Hosp L2
[2024-08-04 15:00] VITALS: PULSE 60; RESP 18; O2SAT 95
[2024-08-04 15:35] VITALS: BP 111/65; PULSE 60; RESP 18; TEMP 36.6; O2SAT 95
[2024-08-04 20:00] VITALS: BP 115/63; PULSE 58; RESP 18; TEMP 36.6; O2SAT 98
[2024-08-04] MEDS: 0.9% Saline Lock 10 ML Syringe IV (20:03)
[2024-08-04] MEDS: Atorvastatin Calcium 20 MG Tablet PO (20:05)
[2024-08-05 02:01] VITALS: BP 133/66; PULSE 53; RESP 18; TEMP 36.1; O2SAT 96
[2024-08-05 02:07] VITALS: BP 133/66; PULSE 53; RESP 18; TEMP 36.1; O2SAT 96
[2024-08-05 05:45] VITALS: BMI 30.7
[2024-08-05] MEDS: Acetaminophen 500 MG Tablet 1000 MG PO ×2 (06:13→14:19)
[2024-08-05 08:00] VITALS: BP 121/61; PULSE 60; PULSE 61; RESP 18; TEMP 36.7; O2SAT 96
--- NOTE | 2024-08-05 08:38 | ECHOL_ITS ---
Reason For Study: PERICARDIAL EFFUSION Procedure This was a limited 2D transthoracic echocardiogram. Exam performed portable in patient room. Left Ventricle Normal size and thickness. The left ventricular ejection fraction is 55 %. Unable to assess diastolic function based on available data. Right Ventricle Normal size and thickness. Atria The left and right atria are normal. Mitral Valve Normal mitral valve. Tricuspid Valve Normal tricuspid valve. Aortic Valve Trisinus/trileaflet aortic valve. Pulmonic Valve The pulmonic valve is not well visualized. Great Vessels Normal sized aortic root. The inferior vena cava is dilated. Pericardium/Pleural Moderate pericardial effusion with no echo evidence of tamponade. Compared to previous study of 08/03/2024, there has been no significant change in the size of the effusion. MMode/2D Measurements & Calculations LVIDd: 4.1 cm IVSd: 0.99 cm LAV(MOD-bp): 42.1 ml LVIDs: 2.3 cm LVPWd: 1.1 cm LAV(MOD-bp) Indexed: 18.2 ml/m2 FS: 45.5 % LAV(MOD-sp2): 50.0 ml LAV(MOD-sp4): 33.6 ml SV(MOD-sp4): 34.4 ml SV(sp4-el): 35.1 ml LVAd ap4: 23.8 cm2 LVLd ap4: 8.4 cm EDV(MOD-sp4): 56.3 ml EDV(sp4-el): 57.4 ml LVAs ap4: 13.3 cm2 LVLs ap4: 6.8 cm ESV(MOD-sp4): 22.0 ml ESV(sp4-el): 22.3 ml EF(MOD-sp4): 61.0 % EF(sp4-el): 61.2 % LA A4 area: 14.2 cm2 LA dimension(2D): 3.9 cm RA A4 area: 15.6 cm2 ECHO/Echo, Limited Study Interpretation Summary The left ventricular ejection fraction is 55 %. Moderate pericardial effusion with no echo evidence of tamponade. Compared to p revious study of 08/03/2024, there has been no significant change in the size of the effusion. The inferior vena cava is dilated Ordering Physician: Jackson Blake Referring Physician: Alfredo Vasquez Performed By: Caitlin Barakat and Student
[2024-08-05] MEDS: Indomethacin 25 MG Capsule 50 MG PO ×2 (08:51→11:46)
[2024-08-05] MEDS: Colchicine 0.6 MG TABLET PO (08:51)
[2024-08-05] MEDS: Pantoprazole Sodium 40 MG Tablet PO (08:52)
[2024-08-05] MEDS: Lisinopril 20 MG Tablet PO (08:55)
[2024-08-05] MEDS: Aspirin 81 MG TAB.CHEW PO (08:55)
--- NOTE | 2024-08-05 11:40 | CASEMGMT ---
MARSHALL VICENTE Assessment: Face to Face with pt for initial transition planning/care coordination assessment. RN JULES introduced self and role at [facility], pt voices understanding and consents to assessment. Pt is A&O x4 and answers all questions appropriately at this time. Pt sitting up in chair in no distress, sitting at bedside. Pt agreeable to answering questions with in room. Care providers, pharmacy, and demographics verified/updated. Strata: 2 Admitting Dx: Pericarditis PCP: Jenn Specialists: aimee Hernández [facility] Prescription Benefit: yes LNOK: , Daughter Living Arrangements: Pt lives with in a 2 story home with accommodations all on the main level. Pt has a ramp to enter into home. ADLs: Pt reports I with ADLs and IADLs. Transportation: Pt drives self and denies concerns with transportation. DME: Portable WC, walker, lift to basement, cane, shower bench. HHC/SNF: Denies Hx of. Pt states no concerns with going home at time of dc. Pt states no further concerns/needs. Pt reports daughter is a doctor. CM to follow. Advised pt to ask CM if any further question/concerns/needs arise, voices understanding. Pt Goal: Home Plan: Home, follow plan of care. Chase OLIVARES CM
[2024-08-05] MEDS: Sertraline 100 MG Tablet 150 MG PO (11:45)
[2024-08-05 13:35] VITALS: BP 132/58; PULSE 55; RESP 16; TEMP 36.9; O2SAT 97
--- NOTE | 2024-08-05 13:36 | DS.PCM_ITS ---
Providers Date of Admission: 08/03/24 Date of Discharge: 08/05/24 Primary Care Physician: Dr. Alfredo Vasquez MD Consultations 08/03/24 12:15 Consult: Cardiology Routine Consulting Provider: Jackson Blake Reason for Consult: pericarditis EMERGENT Consult: No MD Notified: Yes Date Notified: 08/03/24 Time Notified: 11:14 Method of Notification: ED Physician Initiated Reason For Visit: PERICARDITIS Diagnosis Discharge Diagnosis (1) Pericarditis: Status: Acute Code(s): I31.9 - Disease of pericardium, unspecified Qualifiers: Chronicity: acute Pericarditis type: idiopathic Qualified Code(s): I 30.0 - Acute nonspecific idiopathic pericarditis (2) Acute pericardial effusion: Status: Acute Code(s): I30.9 - Acute pericarditis, unspecified Medications at Discharge Home Medications aspirin 81 mg chewable tablet 81 mg PO DAILY@0800 11/29/16 lisinopril 20 mg tablet 20 mg PO DAILY 12/06/16 simvastatin 40 mg tablet 40 mg PO QHS 12/06/16 magnesium oxide 250 mg PO DAILY 08/03/24 multivitamin (Daily Multi-Vitamin tablet) 1 tab PO DAILY 08/03/24 riboflavin (vitamin B2) 400 mg tablet 400 mg PO DAILY 08/03/24 sertraline 100 mg tablet 150 mg PO DAILY 08/03/24 colchicine 0.6 mg capsule 0.6 mg PO BID 180 days #360 caps 08/05/24 indomethacin 25 mg capsule 50 mg (2 x 25 mg) PO TIDCM 28 days #168 caps 08/05/24 pantoprazole 20 mg tablet,delayed release 20 mg PO DAILY #30 tabs 08/05/24 Hospital Course Operations None Procedures 2-D Echocardiogram Summary of Care Provided Minutes Spent on Discharge: 55 Hospital Course: Patient is a 79-year-old male with a past medical history as outlined which includes hypercholesterolemia and hypertension was admitted through the ED on 08/03/2024 with a complaint of chest pain. His symptoms started on the day of admission. It was midsternal and associated with shortness of breath. He had had a stress test done in June 2024 which was negative. At that time he was having shortness of breath. EKG showed ST elevations in the inferior leads. ESR and troponins were normal. CT chest showed pericardial effusion. There was concern for pericarditis. Cardiology was consulted and patient was started on ketorolac. He was admitted and managed for chest pain likely due to acute pericarditis. He was subsequently transition to indomethacin and colchicine. 2D echo done also showed a moderate pericardial effusion with no echo criteria consistent with pericardial tamponade. D-dimer was elevated but CT of the chest was negative for any evidence of PE. Patient symptoms improved after he was started on the colchicine and indomethacin. He had a repeat 2D echo on 08/05/2024 which showed he had EF of 55% and the pericardial effusion had not worsened and had remained stable. He was therefore discharged home per cardiology recommendations on 08/05/2024. He was discharged on p.o. indomethacin 50 mg 3 times daily for 28 days and to be on colchicine 0.6 mg twice daily for 6 months. If he developed diarrhea he was to stop the colchicine. He was given a prescription for p.o. pantoprazole 20 mg daily for GI protective effects. He is to follow-up with his primary care doctor and follow-up with cardiology within 1 week. Patient seen and examined prior to discharge. He had no active complaints and had an uneventful night. Review of systems otherwise negative. Labs and vitals reviewed. Home medications reviewed and reconciled. Physical Exam Const alert, oriented x3 and no apparent distress General Appearance: cooperative, comfortable and well kempt Orientation / Consciousness: awake Exam Limitations: no limitations HEENT normocephalic, head/scalp atraumatic, hearing grossly normal bilaterally and moist oral mucous membranes Mouth: oral and palatal mucosa normal Eyes PERRL, EOMs intact bilaterally and conjunctivae normal Neck no lymphadenopathy and supple Resp normal respiratory effort, no retractions, no use of accessory muscles and clear to auscultation bilaterally Cardio regular rate, regular rhythm, S1 normal heart sound, S2 normal heart sound and no murmurs GI normal to inspection, nondistended, normoactive bowel sounds, soft to palpation, non-tender and non-distended Extremity normal to inspection, full ROM and no clubbing, cyanosis or edema Skin no rashes or lesions noted Neuro oriented x3, CN's II-XII intact bilaterally, moves all extremities and no focal motor deficits Sensorium / Orientation: awake and alert Motor Exam: strength 5/5 throughout Psych affect normal Weight / BMI Weight Weight: 239 lb 3.2 oz Body Mass Index (BMI) 30.7 ABG / Lab / Microbiology Data 08/03/24 07:45 08/04/24 04:45 Radiography Diagnostic Testing: Radiology Impression Echocardiogram 08/05/24 08:38 Interpretation Summary The left ventricular ejection fraction is 55 %. Moderate pericardial effusion with no echo evidence of tamponade. Compared to previous study of 08/03/2024, there has been no significant change in the size of the effusion. The inferior vena cava is dilated Ordering Physician: Jackson Blake Referring Physician: Alfredo Vasquez Performed By: Caitlin Barakat and Student D/C Instructions Discharge Diet: Low fat / Low cholesterol Discharge Activity: Return to Normal Activity Weight Bearing Status: Weight bearing as tolerated Call your doctor if you observe: Fever of 101 or Higher, Shortness of breath, Dizziness, Swelling in the ankles and Chest pain Meaningful Use Info Meaningful Use Meaningful Use Diagnoses (Choose all that apply): None applicable Ischemic Stroke Statin Dosing Therapy Reference: STATIN DOSE THERAPY REFERENCE: * Patients > 75 years receive moderate or high dose statin therapy. * Patients 75 years or YOUNGER should receive HIGH intensity statin dose unless contraindicated. You will be required to document reason for non-treatment if statin daily dose does not meet guidelines. HIGH DOSE STATIN THERAPY DAILY Atorvastatin > than or = to 40 mg Rosuvastatin > than or = to 20 mg Amlodipine + Atorvastatin > than or = to 2.5/40 mg Ezetimibe + Simvastatin 10/80 mg Simvastatin 80mg Discharge Plan Admission Admit Date/Time: 08/03/24 13:35 Primary Reason for Your Visit: acute pericarditis, pericardial effusion Attending Provider: Rafia Smiley Primary Care Provider: Alfredo Vasquez Consulting Providers: Jackson Blake; Te Bill Instructions Patient Instructions: Pericarditis, Treatment for Pericardial Effusion Discharge Orders/Prescriptions Prescriptions: New indomethacin 25 mg Capsule 50 mg PO TIDCM 28 Days Qty: 168 0RF colchicine 0.6 mg Capsule 0.6 mg PO BID 180 Days Qty: 360 0RF pantoprazole 20 mg tablet,delayed release (DR/EC) 20 mg PO DAILY Qty: 30 1RF Continued aspirin 81 MG tablet,chewable 81 mg PO DAILY@0800 lisinopril 20 MG tablet 20 mg PO DAILY simvastatin 40 MG tablet 40 mg PO QHS sertraline 100 mg tablet 150 mg PO DAILY riboflavin (vitamin B2) 400 mg tablet 400 mg PO DAILY magnesium oxide 250 mg magnesium tablet 250 mg PO DAILY multivitamin [Daily Multi-Vitamin] Tablet 1 tab PO DAILY Referrals / Follow Up: Jackson Blake MD [Med Staff - Active Staff] - 08/15/24 2:30 pm Alfredo Vasquez MD [Primary Care Provider] - Within 1 Week Disposition Disposition (needs filled in before D/C Order can be placed): Home, Self Care Charges/Coding Visit Charges Inpatient E&M: 67730 Disch Hosp >30min
== END 2024-08-05 15:05 | disposition home or self-care (01) | DRG 316 ==
LOC: ED 11:26 → PCU 11:31
PROVIDERS: Emergency Provider Emergency Medicine; PCP Family Medicine; Visit Provider Student in an Organized Health Care Education/Training Program
DX: I30.0 Acute nonspecific idiopathic pericarditis (principal); E78.00 Pure hypercholesterolemia, unspecified; I10 Essential (primary) hypertension; F32.A Depression, unspecified; Z79.82 Long term (current) use of aspirin; Z79.899 Other long term (current) drug therapy; Z23 Encounter for immunization
CPT/HCPCS: 36415; 71045; 71275; 80048; 80076; 83690; 84484; 85025; 85379; 85652; 86140; 90662; 93005; 93306; 93308; 99284; J7030; J7040; Q9967; A4216; J2405

== ENCOUNTER 2024-08-06 19:04 | Inpatient (IN) | payer MEDICARE, OTHER, SELFPAY ==
[2024-08-06] VITALS (7 sets, daily range): BP systolic 135–148; BP diastolic 60–78; PULSE 50–95; RESP 22–26; TEMP 36.2; O2SAT 94–97; BMI 30.2
--- NOTE | 2024-08-06 20:05 | EDS_ITS ---
HPI History of Present Illness Chief Complaint: Shortness of Breath Informant: patient and spouse/S.O. Narrative Narrative: Presents to ED with family worsening dyspnea today. Discharged yesterday after 2-day stay for pericarditis with pericardial effusion. He was seen by cardiology Dr. Blake. He had a repeat echo that was unchanged. He had chest pains on Monday that led to the workup per family. He was placed on indomethacin and colchicine along with pantoprazole. He is not on any blood thinners. No cardiac history. There is no recent illness. Since being home increasing dyspnea even at rest. Prior similar symptoms: [facility] Medical History CKD (chronic kidney disease), stage II Obesity History of nephrolithiasis Anxiety and depression Hypercholesterolemia Hypertension Home Medications ?Medication ?Instructions ?Recorded ?Last Taken ?Type aspirin 81 mg chewable tablet 81 mg PO DAILY@0800 11/29/16 07/24/17 History lisinopril 20 mg tablet 20 mg PO DAILY 12/06/16 Unknown History simvastatin 40 mg tablet 40 mg PO QHS 12/06/16 Unknown History magnesium oxide 250 mg PO DAILY 08/03/24 Unknown History multivitamin (Daily Multi-Vitamin 1 tab PO DAILY 08/03/24 Unknown History tablet) riboflavin (vitamin B2) 400 mg 400 mg PO DAILY 08/03/24 Unknown History tablet sertraline 100 mg tablet 150 mg PO DAILY 08/03/24 Unknown History colchicine 0.6 mg capsule 0.6 mg PO BID 180 days #360 caps 08/05/24 Unknown Rx indomethacin 25 mg capsule 50 mg (2 x 25 mg) PO TIDCM 28 days 08/05/24 Unknown Rx #168 caps pantoprazole 20 mg tablet,delayed 20 mg PO DAILY #30 tabs 08/05/24 Unknown Rx release Allergy/AdvReac Type Severity Reaction Status Date / Time No Known Allergies Allergy Verified 08/06/24 19:40 Family History Mother Heart disease Hypertension Father Prostate cancer Surgical History S/P cholecystectomy History of cochlear implant S/P ureteral stent placement Social History household members: spouse Smoking Status: Never smoker alcohol intake: never substance use type: does not use ROS ROS ED Constitutional Constitutional ED: Denies chills, fever(s) or sweats Eyes Eyes: Denies change in vision ENT ENT ED: Denies dysphagia or sore throat Cardiovascular Cardiovascular: Denies chest pain, leg edema, palpitations or racing heartbeat Respiratory/Chest Respiratory/Chest: Reports dyspnea and dyspnea on exertion; Denies cough Gastrointestinal Gastrointestinal: Denies abdominal pain, diarrhea, nausea or vomiting Genitourinary Genitourinary ED: Denies dysuria, hematuria or urinary frequency Musculoskeletal Musculoskeletal: Denies back pain, extremity pain or neck pain Integumentary Denies rash or wounds Neurologic Neurologic: Denies headache(s), paresthesias or weakness EXAM Physical Exam Const Vital Signs: 08/06/24 19:04 08/06/24 19:39 08/06/24 20:04 Temperature 97.2 F L Temperature Source Temporal Pulse Rate 95 52 L Respiratory Rate 22 H 25 H Respiratory Effort Labored Respiratory Depth Normal Respiratory Pattern Normal Blood Pressure 141/60 H 144/67 H Blood Pressure Mean 87 92 Pulse Ox 94 96 Oxygen Delivery Method Room Air Room Air Room Air 08/06/24 21:02 08/06/24 21:07 08/06/24 22:00 Temperature Temperature Source Pulse Rate 50 L 52 L Respiratory Rate 26 H Respiratory Effort Respiratory Depth Respiratory Pattern Blood Pressure 148/73 H 148/73 H 140/78 H Blood Pressure Mean 98 98 Pulse Ox 97 Oxygen Delivery Method 08/06/24 23:00 08/07/24 00:00 Temperature Temperature Source Pulse Rate 52 L 64 Respiratory Rate 23 H 26 H Respiratory Effort Respiratory Depth Respiratory Pattern Blood Pressure 135/63 H 130/67 H Blood Pressure Mean 87 88 Pulse Ox 96 96 Oxygen Delivery Method Room Air Positive well nourished and well developed Constitutional Narrative: Intermittent tachypnea, no distress. General Appearance ED: well developed HEENT Reports moist mucous membranes normocephalic and atraumatic Eyes EOMs intact bilaterally and conjunctivae normal General Eye ED: Yes normal appearance of both eyes Neck no lymphadenopathy and supple General: Negative for tenderness Chest Wall Chest: Negative for tenderness Resp normal respiratory effort and normal air movement Effort and Inspection: symmetric chest movement; Negative for respiratory dist ress Cardio regular rate, regular rhythm and no murmurs Peripheral Pulses: pulses 2+ throughout GI normal to inspection, nondistended, normoactive bowel sounds and non-tender Palpation: Negative for guarding or rebound tenderness present Back/Spine no CVA tenderness and no thoracic nor lumbar tenderness Extremity normal to inspection General Extremety ED: Negative for edema or tenderness General Extremity: Negative for edema Neuro oriented x3 and no sensory deficits noted Sensorium / Orientation: awake and alert Skin no rashes or lesions noted and no wounds MDM MDM MDM Narrative Medical decision making narrative: Interventions / MDM: Differential diagnosis: Pericardial effusion, dyspnea, myocarditis, NSTEMI Diagnosis considered but do not suspect: N/A My EKG interpretation: Sinus rate of 53, no ST changes. T wave inversion leads III nonspecific. Electronically reading concerns for STEMI, however no signs of this. Imaging independently reviewed and interpreted by myself: CTA chest: No PE. Slightly increased pericardial effusion. External documents reviewed: N/A Test considered but not ordered:N/A ED course: Patient known pericardial effusion worsening dyspnea. I placed a bedside ultrasound noting pericardial effusion transabdominal and parasternal views were noted. EKG labs were ordered. 1999: I spoke with on-call doctor of naturopathic medicine Dr. Olivas, discussed with patient, recalls reading an echocardiogram yesterday. I did send him video clip a bedside ultrasound he states this appears similar to the echocardiogram yesterday. He recommended PE rule out while in the ED. He states plan for admission to hospitalist for repeat echocardiogram in the morning. Blood pressure currently stable. 2049: Troponin returned at 1146. No chest pains. EKG with no STEMI. I rediscussed with Dr. Olivas, and sent him EKG. He request aspirin be given Nitropaste be placed. Blood pressure systolic 140s. Will hold on heparin drip due to his pericardial effusion. Concern likely pericarditis leading to myocarditis. Will plan for ICU placement. 2233: Clinically looks more comfortable. CT angiogram pending final read however on my review did not appreciate any pulmonary embolism. Enlarged car diac silhouette noted. Will plan on discussing with hospitalist for admission. 0000: I did discuss with hospitalist Dr. Wallis. Awaiting final read on CT chest prior to admission to ICU. Vitals are remained stable. Repeat troponin has peaked, currently trending down to 1139. 0010: Read reporting slight increase confusion per radiology. Dr. Wallis aware, will admit to ICU. Re-evaluation: stable Disposition discussed with patient/family/significant other: Patient and family Case discussed with consulting clinician: Cardiology, hospitalist This note was generated with [employer] dictation software. It may contain incorrect words, spelling, and punctuation that were not noted in checking the note before signing. Lab Data Attestation: I reviewed the patient's lab results. Labs: Laboratory Results - last 24 hr 08/06/24 08/06/24 19:36 22:21 WBC 7.6 RBC 4.06 L Hgb 12.6 L Hct 38.0 L MCV 93.6 MCH 31.0 MCHC 33.2 RDW Std Deviation 45.5 H RDW Coeff of Jacob 13.2 Plt Count 200 MPV 10.6 Immature Gran % (Auto) 0.500 Neut % (Auto) 73.2 H Lymph % (Auto) 10.[address] [place] % (Auto) 10.9 H Eos % (Auto) 4.1 Baso % (Auto) 0.4 Absolute Neuts (auto) 5.5 Absolute Lymphs (auto) 0.83 Nucleated RBC % 0 PT 14.5 INR 1.1 APTT 34.8 Sodium 141 Potassium 4.3 Chloride 113 H Carbon Dioxide 21.0 Anion Gap 7 BUN 42 H Creatinine 1.31 H Estim Creat Clear Calc 61.42 Est GFR (MDRD) Af Amer 68 Est GFR (MDRD) Non-Af 56 L BUN/Creatinine Ratio 32.1 H Glucose 142 H Calcium 9.1 Troponin I High Sens 1146 H* 1139 H* Radiography Diagnostic Testing: Clinical Impression(s) from Imaging Studies Chest CTA 08/06/24 21:15 IMPRESSION: Moderate sized simple fluid attenuating pericardial effusion, slightly increased in size from 3 days prior. Cannot exclude tamponade physiology. Small left pleural effusion with adjacent left lower lobe atelectasis versus other airspace disease, to include aspiration pneumonia, unchanged from 3 days prior. Tiny right pleural effusion as well. Bilateral hypoattenuating thyroid lesions measuring up to 2.6 cm on the left. Recommend nonemergent follow-up thyroid ultrasound to better characterize as neoplastic process is not excluded. Mild splenomegaly. Multiple bilateral hypoattenuating renal lesions again noted, the largest of which measure nearly simple fluid attenuation, incompletely imaged, likely renal cysts. No pulmonary emboli or acute aortic abnormality. Electronically Signed: Luis Alfredo Hirsch MD at 0:07 EDT , Critical Care Time Critical Care Time: Yes Critical care time (excluding procedures): 30-74 minutes, Discussing w/Patient &/or Family/Donor Support Technician, Discussing w/Consultants, Arranging Admission or Transfer, Performing Direct Patient Care at Bedside and - (40 minutes) Discharge Plan Dx/Rx/DC Orders Clinical Impression: Myocarditis, Pericarditis, Pericardial effusion without cardiac tamponade, Non- ST elevation ID (NSTEMI) Disposition Disposition: Acute Care Hospital [facility]
[2024-08-06 20:09] LABS: Absolute Lymphocyte Count 0.83 X10^3/uL (0.83-4.51); Absolute Neutrophil Count 5.5 X10^3/uL (2.0-7.7); Basophil# 0.03 X10^3/uL; Basophil% 0.4 % (0-1); Eosinophil# 0.31 X10^3/uL; Eosinophils% 4.1 % (0-5); Hemoglobin 12.6 g/dL (13.0-16.5); Lymphocyte # 0.83 X10^3/ul (0.83-4.51); Lymphocyte % 10.9 % (19-41); Mean Corp Hgb Conc 33.2 g/dL (32-36); Mean Corpuscular Volume 93.6 fL (80-94); Mean Platelet Vol. 10.6 fl (6.2-12.0); Monocyte# 0.83 X10^3/uL; Monocyte% 10.9 % (0-10); NRBC Flagged by Analyzer 0 % (0-5); Neutrophil # 5.54 X10^3/uL (2.7-7.7); Neutrophil % 73.2 % (47-70); Platelet Count 200 K/mm3 (150-450); RBC Distribution Width CV 13.2 % (11.6-14.6); RBC Distribution Width SD 45.5 fl (35.1-43.9); Red Blood Count 4.06 M/mm3 (4.6-6.2); White Blood Count 7.6 K/mm3 (4.4-11.0)
[2024-08-06 20:26] LABS: International Normalized Ratio 1.1; Prothrombin Time (Protime)PT. 14.5 SECONDS (11.7-14.9)
[2024-08-06 20:27] LABS: Partial Thromboplast Time 34.8 Seconds (24.1-36.2)
[2024-08-06 20:39] LABS: Anion Gap 7 (5-15); BUN 42 mg/dL (7-18); BUN/Creat Ratio 32.1 RATIO (10-20); Calcium,Total 9.1 mg/dL (8.5-10.1); Chloride 113 mmol/L (98-107); Creatinine, Serum 1.31 mg/dL (0.70-1.30); EST Glomerular Filtration Rate 56 mL/min (>60); Est Glom Filt Rate - Afr Amer 68 mL/min (>60); Estimated Creatinine Clearance 61.42 ml/min; Glucose 142 mg/dL (74-106); Potassium 4.3 mmol/L (3.5-5.1); Sodium Level 141 mmol/L (136-145); Troponin-I HS (w/2H Reflex) 1146 pg/mL (3.0-78.0)
[2024-08-06] MEDS: Nitroglycerin Oint 1 INCH PACKET TD (21:02)
[2024-08-06] MEDS: Aspirin 81 MG TAB.CHEW 324 MG PO (21:02)
--- NOTE | 2024-08-06 21:15 | CT_ITS ---
INDICATION: dyspnea EXAMINATION: - CTA Chest WO/W Contrast Injection A radiation dose optimization technique was used for this scan. RADIATION DOSAGE (If Supplied By Facility): CTDIvol/DLP = ( 12.39 ) / ( 566.92 ) mGy/mGycm COMPARISON: 08/03/2024 chest CTA. 05/16/[address] FINDINGS: Contrast enhanced serial CTA axial images through the chest with coronal and sagittal reformatted series. Additional dedicated coronal and sagittal MIP reformatted series provided as well. IV Contrast dosage and agent: 100 cc [id number] IV. MEDIASTINUM: No acute thoracic aortic abnormality. No pulmonary artery filling defects. Moderate amount of simple fluid attenuating pericardial fluid, slightly increased in size from 3 days prior. Bilateral hypoattenuating thyroid lesions measuring up to 2.6 cm on the left. LUNG PARENCHYMA/PLEURA: Small left pleural effusion with adjacent left lower lobe atelectasis versus other airspace disease, to include aspiration pneumonia. Tiny right pleural effusion as well. No pneumothorax. Elevation the left hemidiaphragm, unchanged from 2020. BONES: Lower cervical spine anterior fusion hardware without obvious hardware complication, incompletely imaged. UPPER ABDOMEN: Small left hepatic lobe cyst. Mild splenomegaly measuring up to 15 cm. Multiple bilateral hypoattenuating renal lesions, the largest of which measure nearly simple fluid attenuation, incompletely imaged, likely renal cysts. CT/CTA Chest W/WO Contrast IMPRESSION: Moderate sized simple fluid attenuating pericardial effusion, slightly increased in size from 3 days prior. Cannot exclude tamponade physiology. Small left pleural effusion with adjacent left lower lobe atelectasis versus other airspace disease, to include aspiration pneumonia, unchanged from 3 days prior. Tiny right pleural effusion as well. Bilateral hypoattenuating thyroid lesions measuring up to 2.6 cm on the left. Recommend nonemergent follow-up thyroid ultrasound to better characterize as neoplastic process is not excluded. Mild splenomegaly. Multiple bilateral hypoattenuating renal lesions again noted, the largest of which measure nearly simple fluid attenuation, incompletely imaged, likely renal cysts. No pulmonary emboli or acute aortic abnormality. Electronically Signed: Luis Alfredo Hirsch MD at 0:07 EDT ,
[2024-08-06 22:05] LABS: Reflex Troponin-HS? (from REC) Y
[2024-08-06 22:49] LABS: Troponin-I HS 1139 pg/mL (3.0-78.0)
[2024-08-07] VITALS (36 sets, daily range): BP systolic 100–170; BP diastolic 56–112; PULSE 47–74; RESP 16–27; TEMP 36.2–36.7; O2SAT 95–98; BMI 30.9
--- NOTE | 2024-08-07 00:06 | PCM.HP.STD ---
HPI - General General Date of Admission: 08/07/24 Date of Service: 08/07/24 Chief Complaint: Dyspnea, worsening. HPI Narrative The patient is a 79 y/o M w/ PMHx: CKD stage II per GFR trending, Obesity, HTN, HLD, Anxiety and Depression, recently admitted secondary to midsternal chest discomfort with dyspnea with concern for ST elevation in the inferior leads with normal ESR and troponin with CT scan with demonstrated moderate effusion on pericardial effusion with repeat confirmation on echocardiogram again moderate with no evidence of tamponade with concern for pericarditis with cardiology evaluation with recommendation for treatment with indomethacin 50 mg 3 times daily, colchicine 0.6 mg twice daily and plan repeat limited echocardiogram in 48 hours which was stable with discharge to home now presents to the [facility] ED on 08/06/24 reporting shortness of breath and stating that he is had a 10 pound weight gain since reportedly Monday with 08/03/2024 presentation weight 238 pounds with repeat upon floor transition to 32 pounds however again repeat 08/05/2024 239 pounds thus likely his baseline and upon current ED arrival 235 pounds does not consistent with reported weight gain but given symptoms prompted repeat ED evaluation. Upon evaluation in the ED he notes that he is feeling better since initial ED arrival and family notes he looks more comfortable with less quick breathing and easier breathing appearance. He does report feeling improved. He notes that primarily the dyspnea is when he is exerting himself and recently at rest but not worsened by sitting forward or laying on his back. Workup in the ED included T97.2, heart rate 95, BP 141/60, respiratory rate 22, 94% on room air, CBC with WBC 7.6, human 12.6, MCV 93.6, platelet 200 without marked shift, coags unremarkable, BMP chloride 113, BUN/creatinine 42/1.31, glucose 142, troponin 1146 and [id number] with recent troponins during admission normal range 9 and 10, ED initiated bedside ultrasound reviewed per cardiology with prelim read per cardiology noted to be stable from most recent prior to discharge, EKG with sinus bradycardia with T wave inversions in lead III, nonspecific with no acute evidence of ischemia. In the ED patient ministered full-strength aspirin therapy and nitroglycerin 1 inch transdermal placed. ED discussed case with spray machine operator Dr. Olivas who recommended repeat CTPA as well as once troponin resulted ICU admission given severity, repeat echocardiogram in AM, transdermal Nitropaste be placed and continued on aspirin therapy with full strength in ED with deferral of heparin drip given pericardial effusion. CTPA resulted w/ noted moderate sized simple fluid attenuating pericardial effusion slightly increased in size from prior CT, small left pleural effusion with adjacent left lower lobe atelectasis unchanged from prior, tiny right pleural effusion as well, bilateral hypoattenuating thyroid lesions measuring up to 2.6 cm on the left, mild splenomegaly, multiple bilateral hypoattenuating renal lesions likely renal cysts with no acute pulmonary emboli or acute aortic abnormality. [facility] Medical History CKD (chronic kidney disease), stage II Obesity History of nephrolithiasis Anxiety and depression Hypercholesterolemia Hypertension Home Medications ?Medication ?Instructions ?Recorded ?Last Taken ?Type aspirin 81 mg chewable tablet 81 mg PO DAILY@0800 11/29/16 07/24/17 History lisinopril 20 mg tablet 20 mg PO DAILY 12/06/16 Unknown History simvastatin 40 mg tablet 40 mg PO QHS 12/06/16 Unknown History magnesium oxide 250 mg PO DAILY 08/03/24 Unknown History multivitamin (Daily Multi-Vitamin 1 tab PO DAILY 08/03/24 Unknown History tablet) riboflavin (vitamin B2) 400 mg 400 mg PO DAILY 08/03/24 Unknown History tablet sertraline 100 mg tablet 150 mg PO DAILY 08/03/24 Unknown History colchicine 0.6 mg capsule 0.6 mg PO BID 180 days #360 caps 08/05/24 Unknown Rx indomethacin 25 mg capsule 50 mg (2 x 25 mg) PO TIDCM 28 days 08/05/24 Unknown Rx #168 caps pantoprazole 20 mg tablet,delayed 20 mg PO DAILY #30 tabs 08/05/24 Unknown Rx release Allergy/AdvReac Type Severity Reaction Status Date / Time No Known Allergies Allergy Verified 08/06/24 19:40 Family History Mother Heart disease Hypertension Father Prostate cancer Surgical History S/P cholecystectomy History of cochlear implant S/P ureteral stent placement Social History household members: spouse Smoking Status: Never smoker alcohol intake: never substance use type: does not use ROS ROS Narrative Admission Review of Systems: CONSTITUTIONAL: No weight loss, fever, chills, + weakness or fatigue. HEENT: Eyes: No visual loss, blurred vision, double vision or yellow sclerae. Ears, Nose, Throat: No hearing loss, sneezing, congestion, runny nose or sore throat. SKIN: No rash or itching, lesions, wounds. CARDIOVASCULAR: No chest pain, chest pressure or chest discomfort, palpitations, edema, orthopnea, syncopal events. RESPIRATORY: + Dyspne, worse with exertion a. Now cough or sputum, wheezing, hemoptysis. GASTROINTESTINAL: No anorexia, nausea, vomiting or diarrhea, abdominal pain, melena, BRBPR. GENITOURINARY: No dysuria, frequency, urgency or retention. NEUROLOGICAL: No headache, dizziness, syncope, paralysis, ataxia, numbness or tingling in the extremities, focal weakness, change in bowel or bladder control, seizure. MUSCULOSKELETAL: No muscle, back pain, joint pain or stiffness. HEMATOLOGIC: No anemia, bleeding or bruising. LYMPHATICS: No enlarged nodes. No history of splenectomy. PSYCHIATRIC: + History of anxiety and depression. ENDOCRINOLOGIC: No reports of sweating, cold or heat intolerance. No polyuria or polydipsia. ALLERGIES: No history of asthma, hives, eczema or rhinitis. Vital Signs Vital Signs Vital Signs: 08/06/24 19:04 08/06/24 19:39 08/06/24 20:04 Temperature 97.2 F L Temperature Source Temporal Pulse Rate 95 52 L Respiratory Rate 22 H 25 H Respiratory Effort Labored Respiratory Depth Normal Respiratory Pattern Normal Blood Pressure 141/60 H 144/67 H Blood Pressure Mean 87 92 Pulse Ox 94 96 Oxygen Delivery Method Room Air Room Air Room Air 08/06/24 21:02 08/06/24 21:07 08/06/24 22:00 Temperature Temperature Source Pulse Rate 50 L 52 L Respiratory Rate 26 H Respiratory Effort Respiratory Depth Respiratory Pattern Blood Pressure 148/73 H 148/73 H 140/78 H Blood Pressure Mean 98 98 Pulse Ox 97 Oxygen Delivery Method 08/06/24 23:00 Temperature Temperature Source Pulse Rate 52 L Respiratory Rate 23 H Respiratory Effort Respiratory Depth Respiratory Pattern Blood Pressure 135/63 H Blood Pressure Mean 87 Pulse Ox 96 Oxygen Delivery Method Room Air Weight Weight: 235 lb Body Mass Index (BMI) 30.2 Physical Exam Narrative Physical Examination: General: Awake, alert, oriented x 3 and cooperative, seated upright in the ED bed, fatigued appearing, no acute distress. Skin: Normal color, normal turgor, no icterus, no cyanosis except occasional stage ecchymoses likely from recent lab draws with recent admission. HEENT: AT/NC, EOMI, PERRLA, MMM, no carotid bruits or JVD noted. Lungs: Diminished, greater bases, mildly increased effort but no distress, no rales, ronchi or wheezing. Heart: Bradycardic with regular rhythm; no gallop, no rub audible. Abdomen: Soft, obese, NTTP, ND, normal BS, no appreciated HSM. Extremities: No cyanosis, clubbing, or edema. Neurological: Patient awake, alert, oriented as noted, cognitive function intact; pupils equally reactive to light and accommodation, cranial nerves II-XII grossly normal, moving all 4 extremities, no focal deficits, strength moderately globally decreased secondary to acute presentation complaints. Psychiatric: Affect appears fatigued, no acute evidence of depressive or anxiety feelings but does have underlying history. Results Lab / Micro Data 08/06/24 19:36 08/06/24 19:36 Labs: Laboratory Results - last 24 hr 08/06/24 19:36: WBC 7.6, RBC 4.06 L, Hgb 12.6 L, Hct 38.0 L, MCV 93.6, MCH 31.0, MCHC 33.2, RDW Std Deviation 45.5 H, RDW Coeff of Jacob 13.2, Plt Count 200, MPV 10.6, Immature Gran % (Auto) 0.500, Neut % (Auto) 73.2 H, Lymph % (Auto) 10.9 L, [place] % (Auto) 10.9 H, Eos % (Auto) 4.1, Baso % (Auto) 0.4, Absolute Neuts (auto) 5.5, Absolute Lymphs (auto) 0.83, Nucleated RBC % 0, PT 14.5, INR 1.1, APTT 34.8, Sodium 141, Potassium 4.3, Chloride 113 H, Carbon Dioxide 21.0, Anion Gap 7, BUN 42 H, Creatinine 1.31 H, Estim Creat Clear Calc 61.42, Est GFR (MDRD) Af Amer 68, Est GFR (MDRD) Non-Af 56 L, BUN/Creatinine Ratio 32.1 H, Glucose 142 H, Calcium 9.1, Troponin I High Sens 1146 H* 08/06/24 22:21: Troponin I High Sens 1139 H* Assessment & Plan Assessment/Plan (1) Myocarditis: (2) Non-ST elevation RI (NSTEMI): PLAN: Plan The patient is a 79 y/o M w/ PMHx: CKD stage II per GFR trending, Obesity, HTN, HLD, Anxiety and Depression, recently admitted secondary to midsternal chest discomfort with dyspnea with concern for ST elevation in the inferior leads with normal ESR and troponin with CT scan with demonstrated moderate effusion on pericardial effusion with repeat confirmation on echocardiogram again moderate with no evidence of tamponade with concern for pericarditis with cardiology evaluation with recommendation for treatment with indomethacin 50 mg 3 times daily, colchicine 0.6 mg twice daily and plan repeat limited echocardiogram in 48 hours which was stable with discharge to home now presents to the [facility] ED on 08/06/24 reporting shortness of breath and stating that he is had a 10 pound weight gain since reportedly Monday with 08/03/2024 presentation weight 238 pounds with repeat upon floor transition to 32 pounds however again repeat 08/05/2024 239 pounds thus likely his baseline and upon current ED arrival 235 pounds does not consistent with reported weight gain but given symptoms prompted repeat ED evaluation. #1. Dyspnea with recently diagnosed Acute Pericarditis with moderate pericardial effusion, symptomatically worsening, initial prelim ED limited ultrasound stable from previous with previously normal cardiac troponin during recent admission now elevated suspected secondary to resulting Acute myocarditis with associated NSTEMI, unclear type: CTPA repeated in the ED and pericardial effusion only slightly increased from prior thus per recommendation of cardiology, will admit to the ICU per cardiology recommendation, will maintain on environmental monitoring specialist, will continue to cycle cardiac enzymes, will continue recently initiated indomethacin and colchicine, continue consultation with cardiology Dr. Olivas with bedside echocardiogram in the ED reportedly similar to the day prior but will plan repeat echocardiogram in a.m., will hold on heparin drip per Cardiology preference, will maintain on aspirin therapy, will continue TD NG, will continue to monitor blood pressure and vital signs, magnesium level requested, FLP in AM, CRP and ESR requested, procalcitonin requested, will trend CBC, CMP. #2. Normocytic anemia, appears new and chronicity: Admission hemoglobin 12.6, MCV 93.6, recent admission with hemoglobin 14-15, will repeat CBC in the a.m., will obtain iron panel, ferritin to be cautious as well as guaiac. #3. Acute renal insufficiency/elevated creatinine on Chronic Kidney Disease Stage II per GFR trending: Secondary to acute presentation #1, medications coupled with likely poor intake given discomfort admission BUN/Cr 42/1.31 baseline renal function 0.9-1.1, repeat BMP in AM. Cautiously continue medications as noted #1 will closely continue to monitor renal function and hold if necessary. #4. Incidentally noted bilateral hypotonia and thyroid lesions: CT with bilateral hypoattenuating thyroid lesions measuring up to 0.6 cm on the left, will need outpatient follow-up thyroid ultrasound, TSH and free T4 requested #5. Incidental bilateral hypoattenuating renal lesions: CT with bilateral multiple hypoattenuating renal lesions, likely renal cyst, encourage continued outpatient follow-up. #6. Hyperglycemia, suspect stress response: Admission glucose 142, will obtain hemoglobin A1c be cautious #7. Hypertension: Continue home regimen including lisinopril, hydrochlorothiazide, PRN hydralazine. #8. Hyperlipidemia: We will continue patient on statin therapy. #9. Anxiety and depression: We will continue patient home sertraline regimen. #10. Obesity: Weight loss and lifestyle changes encouraged. #11. DVT prophylaxis: SCDs, as noted above cardiology recommended deferral of heparin drip at this time given pericardial effusion, they certainly add chemoprophylactic at later date but will await cardiology evaluation first. #12. CODE status: Patient REBECCA is his who is present and living will is currently in place. Discussed CODE status at length including difference between FULL code, DNR-CCA and DNR-CC status. Following discussions about the differences in these status, requested Full Code status. Advanced Care Planning Face to Face Time: 16 minutes. Charges/Coding Visit Charges Inpatient E&M: 80547 Init Hosp L3 Procedures Hospitalists Procedures: 16133 Advncd Care Plan 30 Min
[2024-08-07 00:35] LABS: Magnesium 2.1 mg/dL (1.6-2.6)
--- NOTE | 2024-08-07 00:37 | ECHOL_ITS ---
Reason For Study: PERICARDIAL EFFUSION Procedure This was a limited 2D transthoracic echocardiogram. Exam performed portable in ICU/CCU. Left Ventricle Normal size and thickness. The left ventricular ejection fraction is 65 %. Right Ventricle Normal right ventricle. Atria The left atrium is severely enlarged. Normal right atrium. Mitral Valve Normal mitral valve. Tricuspid Valve Normal tricuspid valve. Aortic Valve Normal aortic valve. Pulmonic Valve The pulmonic valve is not well visualized. Great Vessels Inferior vena cava collapse with respiration. Pericardium/Pleural Moderate size posterior pericardial effusion with no significant change in study from 08/05/2024. No echo evidence of tamponade. MMode/2D Measurements & Calculations LVIDd: 4.9 cm IVSd: 0.93 cm Ao root diam: 3.8 cm LVIDs: 3.2 cm LVPWd: 0.91 cm RVDd: 3.6 cm FS: 33.6 % LAV(MOD-bp): 61.3 ml LVAd ap4: 30.0 cm2 LVAd ap2: 25.2 cm2 LAV(MOD-bp) Indexed: 26.4 ml/m2 LVLd ap4: 8.1 cm LVLd ap2: 8.3 cm LAV(MOD-sp2): 62.3 ml EDV(MOD-sp4): 90.6 ml EDV(MOD-sp2): 65.9 ml LAV(MOD-sp4): 56.9 ml EDV(sp4-el): 93.6 ml EDV(sp2-el): 64.9 ml LVAs ap4: 14.9 cm2 LVAs ap2: 12.8 cm2 LVLs ap4: 6.2 cm LVLs ap2: 6.5 cm ESV(MOD-sp4): 30.4 ml ESV(MOD-sp2): 22.7 ml ESV(sp4-el): 30.6 ml ESV(sp2-el): 21.3 ml EF(MOD-sp4): 66.5 % EF(MOD-sp2): 65.5 % EF(sp4-el): 67.3 % SV(MOD-sp4): 60.2 ml SV(MOD-sp2): 43.2 ml SV(sp4-el): 63.0 ml LA dimension(2D): 5.0 cm LA A4 area: 19.5 cm2 RA A4 area: 16.0 cm2 ECHO/Echo, Limited Study Interpretation Summary The left ventricular ejection fraction is 65 %. The left atrium is severely enlarged. Moderate size posterior pericardial effusion with no significant change in stud y from 08/05/2024. No echo evidence of tamponade. Ordering Physician: Anna Wallis Referring Physician: Alfredo Vasquez Performed By: Tarsha Shrestha, ELAINE, RVT
[2024-08-07 00:51] LABS: Erythrocyte Sedimentation Rate 49 mm/hr (0-20)
[2024-08-07 02:07] LABS: Procalcitonin 0.45 ng/mL (0.00-0.09)
[2024-08-07 02:15] LABS: Hemoglobin A1c 5.7 % (3.8-5.6); Troponin-I HS 733 pg/mL (3.0-78.0)
[2024-08-07] MEDS: Nitroglycerin Oint 1 INCH PACKET 0.5 INCH TD ×2 (06:00→13:44)
[2024-08-07 06:11] LABS: Absolute Neutrophil Count 4.7 X10^3/uL (2.0-7.7); Basophil# 0.03 X10^3/uL; Basophil% 0.4 % (0-1); Eosinophil# 0.37 X10^3/uL; Eosinophils% 5.3 % (0-5); Hematocrit 36.8 % (40-54); Hemoglobin 12.2 g/dL (13.0-16.5); Lymphocyte % 11.4 % (19-41); Mean Corp Hgb Conc 33.2 g/dL (32-36); Mean Corpuscular Hgb 31.2 pg (27.0-32.0); Mean Corpuscular Volume 94.1 fL (80-94); Mean Platelet Vol. 9.8 fl (6.2-12.0); Monocyte# 1.05 X10^3/uL; NRBC Flagged by Analyzer 0 % (0-5); Neutrophil # 4.72 X10^3/uL (2.7-7.7); Neutrophil % 67.3 % (47-70); Platelet Count 200 K/mm3 (150-450); RBC Distribution Width CV 13.3 % (11.6-14.6); RBC Distribution Width SD 45.9 fl (35.1-43.9); Red Blood Count 3.91 M/mm3 (4.6-6.2)
[2024-08-07 06:34] LABS: ALB/GLOB Ratio 0.6 RATIO (0.9-2.4); AST(SGOT) 36 U/L (15-37); Alanine Aminotransfer ALT/SGPT 55 U/L (16-61); Albumin, Serum 2.4 g/dL (3.2-5.0); Alkaline Phosphatase 126 U/L (45-117); Anion Gap 4 (5-15); BUN 33 mg/dL (7-18); BUN/Creat Ratio 32.4 RATIO (10-20); Calcium,Total 8.9 mg/dL (8.5-10.1); Chloride 111 mmol/L (98-107); Creatinine, Serum 1.02 mg/dL (0.70-1.30); EST Glomerular Filtration Rate 75 mL/min (>60); Est Glom Filt Rate - Afr Amer 91 mL/min (>60); Ferritin 447 ng/mL (26-388); Globulin 3.7 g/dL (2.2-4.2); Glucose 107 mg/dL (74-106); Iron 24 ug/dL (65-175); Iron Binding Capacity,Total 227 ug/dL (250-450); PERCENT IRON SATURATION 10.6 % (15.0-55.0); Potassium 4.5 mmol/L (3.5-5.1); Protein, Total 6.1 g/dL (6.4-8.2); Sodium Level 139 mmol/L (136-145); T4 Free Direct 1.04 ng/dL (0.76-1.46)
[2024-08-07] MEDS: Aspirin 81 MG TAB.CHEW PO (08:33)
[2024-08-07] MEDS: Lisinopril 20 MG Tablet PO (08:33)
[2024-08-07] MEDS: Pantoprazole Sodium 20 MG Tablet PO (08:33)
[2024-08-07] MEDS: Indomethacin 25 MG Capsule 50 MG PO ×3 (08:33→17:08)
[2024-08-07] MEDS: Sertraline 50 MG Tablet 150 MG PO (08:33)
[2024-08-07] MEDS: Colchicine 0.6 MG TABLET PO (08:33)
--- NOTE | 2024-08-07 11:32 | CON.PCM.CA_ITS ---
Assessment & Plan Assessment/Plan (1) Elevated troponin: PLAN: Myopericarditis versus NSTEMI. His shortness of breath is with exertion only. Troponin trend also downward that is more suggestive of an acute coronary event. I believe it is reasonable to exclude acute coronary event with coronary angiography. Risks benefits and alternatives were explained to the patient in detail. He understand these and wishes to proceed. (2) Pericarditis: PLAN: Patient remains on indomethacin and colchicine. No chest pain. (3) Pericardial effusion without cardiac tamponade: PLAN: Repeat echocardiogram shows stable pericardial effusion with no tamponade physiology. Actually the effusion may have slightly decreased in size as compared to his previous study. (4) Hypertension: QUALIFIERS: Hypertension type: primary hypertension Qualified Code(s): I10 - Essential (primary) hypertension PLAN: On lisinopril. HPI Consult Data Date of Consult: 08/07/24 HPI Narrative Reason for Consultation: Shortness of breath, elevated troponin HPI Narrative: 79-year-old gentleman who was only recently discharged from the hospital after an admission with a diagnosis of acute pericarditis. He presented to the emergency room again with complaints of dyspnea on exertion. No chest pain. Denies orthopnea or PND. No palpitations. Patient's troponin was noted to be negative on his previous admission on 08/03/2024. However this time in the emergency room his troponin was noted to be elevated at 1146. Subsequently they have trended down with the latest troponin at 733. Patient had Nitropaste applied to his chest in the emergency room. Per him, his shortness of breath is much improved since being on nitro glycerin. [facility] Medical History CKD (chronic kidney disease), stage II Obesity History of nephrolithiasis Anxiety and depression Hypercholesterolemia Hypertension Home Medications ?Medication ?Instructions ?Recorded ?Last Taken ?Type aspirin 81 mg chewable tablet 81 mg PO DAILY@0800 blood thinner 11/29/16 07/24/17 History lisinopril 20 mg tablet 20 mg PO DAILY HTN 12/06/16 Unknown History simvastatin 40 mg tablet 40 mg PO QHS HLD 12/06/16 Unknown History magnesium oxide 250 mg PO DAILY supplement 08/03/24 Unknown History multivitamin (Daily Multi-Vitamin 1 tab PO DAILY supplement 08/03/24 Unknown History tablet) riboflavin (vitamin B2) 400 mg 400 mg PO DAILY supplement 08/03/24 Unknown History tablet sertraline 100 mg tablet 150 mg PO DAILY . 08/03/24 Unknown History colchicine 0.6 mg capsule 0.6 mg PO BID 180 days #360 caps 08/05/24 Unknown Rx indomethacin 25 mg capsule 50 mg (2 x 25 mg) PO TIDCM 28 days 08/05/24 Unknown Rx #168 caps pantoprazole 20 mg tablet,delayed 40 mg PO DAILY GERD 08/07/24 Unknown History release Allergy/AdvReac Type Severity Reaction Status Date / Time No Known Allergies Allergy Verified 08/06/24 19:40 Family History Mother Heart disease Hypertension Father Prostate cancer Surgical History S/P cholecystectomy History of cochlear implant S/P ureteral stent placement Social History household members: spouse Smoking Status: Never smoker alcohol intake: never substance use type: does not use Physical Exam Narrative Comfortable. No apparent distress. Heart sounds 1 and 2 are noted. No rubs are noted. Chest is clear to auscultation bilaterally. Alert oriented x 3. No ankle edema noted. Risk Stratification Risk Stratification Applicable: No Objective Data Vital Signs: Vital Signs Temp Pulse Resp BP Pulse Ox O2 Del Method 97.5 F L 55 L 26 H 145/75 H 96 Room Air 08/07/24 08:00 08/07/24 11:00 08/07/24 11:00 08/07/24 11:00 08/07/24 11:00 08/07/24 11:00 Oxygen Delivery Method Room Air Weight: 234 lb 5.622 oz Body Mass Index (BMI) 30.9 Intake & Output: Intake and Output for Last 24 Hours 08/05/24 08/06/24 08/07/24 23:59 23:59 23:59 Intake Total 240 / 240 Output Total 1150 / 1150 Balance -910 / -910 Lab / Micro Data Attestation: I reviewed the patient's lab results. 08/07/24 06:05 08/07/24 06:05 Labs: Laboratory Results - last 24 hr 08/06/24 19:36: WBC 7.6, RBC 4.06 L, Hgb 12.6 L, Hct 38.0 L, MCV 93.6, MCH 31.0, MCHC 33.2, RDW Std Deviation 45.5 H, RDW Coeff of Jacob 13.2, Plt Count 200, MPV 10.6, Immature Gran % (Auto) 0.500, Neut % (Auto) 73.2 H, Lymph % (Auto) 10.9 L, [place] % (Auto) 10.9 H, Eos % (Auto) 4.1, Baso % (Auto) 0.4, Absolute Neuts (auto) 5.5, Absolute Lymphs (auto) 0.83, Nucleated RBC % 0, ESR 49 H, PT 14.5, INR 1.1, APTT 34.8, Sodium 141, Potassium 4.3, Chloride 113 H, Carbon Dioxide 21.0, Anion Gap 7, BUN 42 H, Creatinine 1.31 H, Estim Creat Clear Calc 61.42, Est GFR (MDRD) Af Amer 68, Est GFR (MDRD) Non-Af 56 L, BUN/Creatinine Ratio 32.1 H, Glucose 142 H, Calcium 9.1, Magnesium 2.1, Troponin I High Sens 1146 H*, C-React Prot Ext Range 140.00 H 08/06/24 22:21: Troponin I High Sens 1139 H* 08/07/24 01:33: Hemoglobin A1c 5.7 H, Troponin I High Sens 733 H*, Procalcitonin 0.45 H 08/07/24 06:05: WBC 7.0, RBC 3.91 L, Hgb 12.2 L, Hct 36.8 L, MCV 94.1 H, MCH 31.2, MCHC 33.2, RDW Std Deviation 45.9 H, RDW Coeff of Jacob 13.3, Plt Count 200, MPV 9.8, Immature Gran % (Auto) 0.600, Neut % (Auto) 67.3, Lymph % (Auto) 11.4 L , [place] % (Auto) 15.0 H, Eos % (Auto) 5.3 H, Baso % (Auto) 0.4, Absolute Neuts (auto) 4.7, Absolute Lymphs (auto) 0.80 L, Nucleated RBC % 0, Sodium 139, Potassium 4.5, Chloride 111 H, Carbon Dioxide 24.0, Anion Gap 4 L, BUN 33 H, Creatinine 1.02, Estim Creat Clear Calc 77.60, Est GFR (MDRD) Af Amer 91, Est GFR (MDRD) Non-Af 75, BUN/Creatinine Ratio 32.4 H, Glucose 107 H, Calcium 8.9, I johnathan 24 L, TIBC 227 L, Iron Saturation 10.6 L, Ferritin 447 H, Total Bilirubin 0.60, AST 36, ALT 55, Alkaline Phosphatase 126 H, Total Protein 6.1 L, Albumin 2.4 L, Globulin 3.7, Albumin/Globulin Ratio 0.6 L, TSH 3.750 H, Free T4 1.04 Micro: Microbiology 08/07/24 10:25 Stool Stool Occult Blood (RADHA) - Final Occult Blood Positive Rhythm Strip Rhythm Strip: Sinus bradycardia Cardiology Labs/Tests 08/06/24 19:36: WBC 7.6, RBC 4.06 L, Hgb 12.6 L, Hct 38.0 L, MCV 93.6, MCH 31.0, MCHC 33.2, Plt Count 200, MPV 10.6, Immature Gran % (Auto) 0.500, Neut % (Auto) 73.2 H, Lymph % (Auto) 10.9 L, [place] % (Auto) 10.9 H, Eos % (Auto) 4.1, Baso % (Auto) 0.4, Absolute Neuts (auto) 5.5, Nucleated RBC % 0, PT 14.5, INR 1.1, APTT 34.8, Sodium 141, Potassium 4.3, Chloride 113 H, Carbon Dioxide 21.0, Anion Gap 7, BUN 42 H, Creatinine 1.31 H, Est GFR (MDRD) Af Amer 68, Est GFR (MDRD) Non-Af 56 L, BUN/Creatinine Ratio 32.1 H, Glucose 142 H, Calcium 9.1, Magnesium 2.1 08/07/24 01:33: Hemoglobin A1c 5.7 H 08/07/24 06:05: WBC 7.0, RBC 3.91 L, Hgb 12.2 L, Hct 36.8 L, MCV 94.1 H, MCH 31.2, MCHC 33.2, Plt Count 200, MPV 9.8, Immature Gran % (Auto) 0.600, Neut % (Auto) 67.3, Lymph % (Auto) 11.4 L, [place] % (Auto) 15.0 H, Eos % (Auto) 5.3 H, Baso % (Auto) 0.4, Absolute Neuts (auto) 4.7, Nucleated RBC % 0, Sodium 139, Potassium 4.5, Chloride 111 H, Carbon Dioxide 24.0, Anion Gap 4 L, BUN 33 H, Creatinine 1.02, Est GFR (MDRD) Af Amer 91, Est GFR (MDRD) Non-Af 75, B UN/Creatinine Ratio 32.4 H, Glucose 107 H, Calcium 8.9, Iron 24 L, TIBC 227 L, I johnathan Saturation 10.6 L, Ferritin 447 H, Total Bilirubin 0.60 Rhythm: EKG: Sinus bradycardia with nonspecific ST-T wave changes. ECHO: Stress Test: Cardiac Cath: PCI: CT Surgery: Holter monitor: EPS: PPM: CXR: Chest CT Scan: Radiography Diagnostic Testing: Radiology Impression Chest CTA 08/06/24 21:15 IMPRESSION: Moderate sized simple fluid attenuating pericardial effusion, slightly increased in size from 3 days prior. Cannot exclude tamponade physiology. Small left pleural effusion with adjacent left lower lobe atelectasis versus other airspace disease, to include aspiration pneumonia, unchanged from 3 days prior. Tiny right pleural effusion as well. Bilateral hypoattenuating thyroid lesions measuring up to 2.6 cm on the left. Recommend nonemergent follow-up thyroid ultrasound to better characterize as neoplastic process is not excluded. Mild splenomegaly. Multiple bilateral hypoattenuating renal lesions again noted, the largest of which measure nearly simple fluid attenuation, incompletely imaged, likely renal cysts. No pulmonary emboli or acute aortic abnormality. Electronically Signed: Luis Alfredo Hirsch MD at 0:07 EDT ,
--- NOTE | 2024-08-07 11:50 | CASEMGMT ---
Readmission Note: Index: 08/03/24-08/05/24. Dx: Pericarditis Readmission: 08/07/24. Dx: Pericardial Effusion, Myocarditis, NSTEMI On index admission, the pt was discharged home with his on a low-fat, low-cholesterol diet. The pt was prescribed Indomethacin, Colchicine, and Pantaprazole. The pt was scheduled to follow up with Dr. Blake ([employer]) on the . The pt arrived at [facility] ED with SOB and a reported 10 lb weight gain since the . Pt troponin levels were elevated and were found to be 1146 in the ER. This RN CM to the room at this time. Pt states that he was unaware of the diet DC instructions and states To be honest, I haven't sat down and read my discharge instructions yet Pt states that he was able to get all of his new prescriptions filled except for one. Pt was unaware of the Rx that he was unable to fill (d/t availability). TC to [facility] in [place] at this time. [facility] states that they did not have the pt Indomethacin available at the time of pickup, but they do have the medication ready now and will hold for 12 days for the pt. Pt states that he had to move his appt with Dr. Blake to the . Pt also states that he has a f/u appt with his PCP on the . See RN CM assessment from 08/05. Pt is lives with his , is independent, and has DME. At this time, the pt is denying any further needs including HHC, OP Tx, or SNF. Pt states that he does not need PT even in the hospital. However, PT and OT are ordered. Pt states that he plans to return home once he is medically ready with no additional needs. CM to follow.
--- NOTE | 2024-08-07 12:40 | NURSING ---
Off floor to label rewinder at this time
--- NOTE | 2024-08-07 14:37 | CASEMGMT ---
Insurance review for hospitals In-network with [facility] insurance if transfer is recommended is as follows: [facility], [place], [facility], [place], [facility], [facility], [facility], [facility], [place], [facility] ([facility]), and KIMMY SNELL RN CM
--- NOTE | 2024-08-07 14:45 | PN_ITS ---
Progress Note Moderate coronary artery disease noted on coronary angiography. No critical lesions noted. Please see Senior Technical Project Manager report for details. Elevated troponin likely secondary to myopericarditis. Also consider vasospasm. Will start on low-dose calcium channel daniel. Continue treatment for myopericarditis. May discharge home in the morning if remains stable.
--- NOTE | 2024-08-07 15:18 | PN_ITS ---
Subjective Subjective Patient seen and examined. He had no active complaints. HE was admitted with a complaint of shortness of breath. He was found to have nonstemi. He denied any fever, shortness of breath, nausea, vomiting or any other symptoms. Review of systems is otherwise negative. He is mildly bradycardic and mildly tachypneic. Objective Data Objective Data Vital Signs: Vital Signs Temp Pulse Resp BP Pulse Ox O2 Del Method 97.8 F 54 L 22 H 150/67 H 96 Room Air 08/07/24 13:45 08/07/24 15:15 08/07/24 15:15 08/07/24 15:15 08/07/24 15:15 08/07/24 15:15 Oxygen Delivery Method Room Air Weight: 234 lb 5.622 oz Body Mass Index (BMI) 30.9 Intake & Output: Intake and Output for Last 24 Hours 08/05/24 08/06/24 08/07/24 23:59 23:59 23:59 Intake Total 240 / 240 Output Total 1150 / 1150 Balance -910 / -910 Lab / Micro Data 08/07/24 06:05 08/07/24 06:05 Labs: Laboratory Results - last 24 hr 08/06/24 19:36: WBC 7.6, RBC 4.06 L, Hgb 12.6 L, Hct 38.0 L, MCV 93.6, MCH 31.0, MCHC 33.2, RDW Std Deviation 45.5 H, RDW Coeff of Jacob 13.2, Plt Count 200, MPV 10.6, Immature Gran % (Auto) 0.500, Neut % (Auto) 73.2 H, Lymph % (Auto) 10.9 L, [place] % (Auto) 10.9 H, Eos % (Auto) 4.1, Baso % (Auto) 0.4, Absolute Neuts (auto) 5.5, Absolute Lymphs (auto) 0.83, Nucleated RBC % 0, ESR 49 H, PT 14.5, INR 1.1, APTT 34.8, Sodium 141, Potassium 4.3, Chloride 113 H, Carbon Dioxide 21.0, Anion Gap 7, BUN 42 H, Creatinine 1.31 H, Estim Creat Clear Calc 61.42, Est GFR (MDRD) Af Amer 68, Est GFR (MDRD) Non-Af 56 L, BUN/Creatinine Ratio 32.1 H, Glucose 142 H, Calcium 9.1, Magnesium 2.1, Troponin I High Sens 1146 H*, C-React Prot Ext Range 140.00 H 08/06/24 22:21: Troponin I High Sens 1139 H* 08/07/24 01:33: Hemoglobin A1c 5.7 H, Troponin I High Sens 733 H*, Procalcitonin 0.45 H 08/07/24 06:05: WBC 7.0, RBC 3.91 L, Hgb 12.2 L, Hct 36.8 L, MCV 94.1 H, MCH 31.2, MCHC 33.2, RDW Std Deviation 45.9 H, RDW Coeff of Jacob 13.3, Plt Count 200, MPV 9.8, Immature Gran % (Auto) 0.600, Neut % (Auto) 67.3, Lymph % (Auto) 11.4 L , [place] % (Auto) 15.0 H, Eos % (Auto) 5.3 H, Baso % (Auto) 0.4, Absolute Neuts (auto) 4.7, Absolute Lymphs (auto) 0.80 L, Nucleated RBC % 0, Sodium 139, Potassium 4.5, Chloride 111 H, Carbon Dioxide 24.0, Anion Gap 4 L, BUN 33 H, Creatinine 1.02, Estim Creat Clear Calc 77.60, Est GFR (MDRD) Af Amer 91, Est GFR (MDRD) Non-Af 75, BUN/Creatinine Ratio 32.4 H, Glucose 107 H, Calcium 8.9, I johnathan 24 L, TIBC 227 L, Iron Saturation 10.6 L, Ferritin 447 H, Total Bilirubin 0.60, AST 36, ALT 55, Alkaline Phosphatase 126 H, Total Protein 6.1 L, Albumin 2.4 L, Globulin 3.7, Albumin/Globulin Ratio 0.6 L, TSH 3.750 H, Free T4 1.04 Micro: Microbiology 08/07/24 10:25 Stool Stool Occult Blood (RADHA) - Final Occult Blood Positive Radiography Diagnostic Testing: Radiology Impression Chest CTA 08/06/24 21:15 IMPRESSION: Moderate sized simple fluid attenuating pericardial effusion, slightly increased in size from 3 days prior. Cannot exclude tamponade physiology. Small left pleural effusion with adjacent left lower lobe atelectasis versus other airspace disease, to include aspiration pneumonia, unchanged from 3 days prior. Tiny right pleural effusion as well. Bilateral hypoattenuating thyroid lesions measuring up to 2.6 cm on the left. Recommend nonemergent follow-up thyroid ultrasound to better characterize as neoplastic process is not excluded. Mild splenomegaly. Multiple bilateral hypoattenuating renal lesions again noted, the largest of which measure nearly simple fluid attenuation, incompletely imaged, likely renal cysts. No pulmonary emboli or acute aortic abnormality. Electronically Signed: Luis Alfredo Hirsch MD at 0:07 EDT , Rhythm Strip Rhythm Strip: Sinus bradycardia Physical Exam Const alert, oriented x3, no apparent distress and well nourished General Appearance: cooperative and well developed HEENT normocephalic, head/scalp atraumatic and moist oral mucous membranes Eyes PERRL and EOMs intact bilaterally Neck no lymphadenopathy, supple and no JVD Lymph Lymphatic: no lymphadenopathy noted and no lymphedema noted Resp Resp Narrative: mildly diminished breath sounds bibasally, no wheezes or crackles. On room air. Cardio Cardio Narrative: mildly bradycardic, normal S1 and S2, no murmurs. GI normal to inspection, nondistended, normoactive bowel sounds, soft to palpation, non-tender and non-distended Extremity normal capillary refill, no clubbing, cyanosis or edema and no calf tenderness General Extremity: no tenderness to palpation of joints or extremities Skin General Skin Exam: no breakdown Neuro CN's II-XII intact bilaterally, no focal motor deficits, no sensory deficits noted and deep tendon reflexes 2+ bilaterally Motor Exam: strength 5/5 throughout and general weakness Psych thought process normal, cooperative and affect normal Appearance: appropriate Assessment & Plan Assessment/Plan (1) Non-ST elevation PR (NSTEMI): (2) Pericardial effusion without cardiac tamponade: (3) Elevated troponin: PLAN: Plan #nonstemi * admitted with a complaint of chest pain. EKG showed ST elevation in the inferior leads * CT chest showed moderate pericardial effusion. * cardiology consulted * 2D echo ordered * cardiology requested no heparin drip. * Per cardiology he may have myopericarditis versus non-STEMI. Per cardiology to have cardiac cath. * #pericarditis * was discharged 2 days ago after being managed for pericarditis * 2D echo done showed moderate pericardial effusion as well. He did have repeat echo on Monday08/05/2024 before being discharged, and echo showed that the effusion was similar to previous echoes and there was no evidence of tamponade. * On colchicine and indomethacin as well as aspirin * #Elevated Cr in the setting of CKD II #Bilateral renal hyponattenuating lesions * stable. To follow up with PCP on outpatient basis for follow up imaging as deemed necessary * #Hypertension: on lisinopril and HCTZ. IV hydralazine prn #Hyperlipidemia: on statin #Anxiety and depression; on sertraline DVT prophylaxis: SCDs Charges/Coding Visit Charges Inpatient E&M: 08293 Subs Hosp L2
[2024-08-07] MEDS: amLODIPine 5 MG Tablet PO (17:08)
[2024-08-07] MEDS: Atorvastatin Calcium 20 MG Tablet PO (21:48)
[2024-08-08] VITALS (18 sets, daily range): BP systolic 101–146; BP diastolic 57–90; PULSE 46–70; RESP 17–27; TEMP 36.1–36.6; O2SAT 94–98; BMI 30.7
[2024-08-08 04:48] LABS: Absolute Lymphocyte Count 0.64 X10^3/uL (0.83-4.51); Absolute Neutrophil Count 4.7 X10^3/uL (2.0-7.7); Basophil# 0.03 X10^3/uL; Basophil% 0.4 % (0-1); Eosinophil# 0.36 X10^3/uL; Eosinophils% 5.3 % (0-5); Hemoglobin 12.4 g/dL (13.0-16.5); Lymphocyte # 0.64 X10^3/ul (0.83-4.51); Lymphocyte % 9.3 % (19-41); Mean Corp Hgb Conc 32.6 g/dL (32-36); Mean Platelet Vol. 10.2 fl (6.2-12.0); Monocyte# 1.03 X10^3/uL; NRBC Flagged by Analyzer 0 % (0-5); Neutrophil # 4.74 X10^3/uL (2.7-7.7); Neutrophil % 69.3 % (47-70); Platelet Count 221 K/mm3 (150-450); RBC Distribution Width CV 13.3 % (11.6-14.6); RBC Distribution Width SD 46.8 fl (35.1-43.9); White Blood Count 6.9 K/mm3 (4.4-11.0)
[2024-08-08 05:08] LABS: Anion Gap 3 (5-15); BUN 37 mg/dL (7-18); BUN/Creat Ratio 32.2 RATIO (10-20); Calcium,Total 9.1 mg/dL (8.5-10.1); Chloride 112 mmol/L (98-107); Cholesterol 109 mg/dL (200); Creatinine, Serum 1.15 mg/dL (0.70-1.30); EST Glomerular Filtration Rate 66 mL/min (>60); Est Glom Filt Rate - Afr Amer 79 mL/min (>60); Estimated Creatinine Clearance 68.83 ml/min; Glucose 116 mg/dL (74-106); High Density Lipoprotein 35 mg/dL; Potassium 4.5 mmol/L (3.5-5.1); Sodium Level 139 mmol/L (136-145); Triglycerides 130 mg/dL; Very Low Density Lipoprotein 26 mg/dL (5-40)
[2024-08-08] MEDS: amLODIPine 5 MG Tablet PO (08:58)
[2024-08-08] MEDS: Lisinopril 20 MG Tablet PO (08:58)
[2024-08-08] MEDS: Indomethacin 25 MG Capsule 50 MG PO ×2 (08:58→11:22)
[2024-08-08] MEDS: Aspirin 81 MG TAB.CHEW PO (08:58)
[2024-08-08] MEDS: Sertraline 50 MG Tablet 150 MG PO (08:58)
[2024-08-08] MEDS: Pantoprazole Sodium 20 MG Tablet PO (08:58)
[2024-08-08 09:35] LABS: Erythrocyte Sedimentation Rate 51 mm/hr (0-20)
--- NOTE | 2024-08-08 10:16 | PCM.PN.CARD ---
Subjective Subjective Feels better. No shortness of breath or chest pain. Objective Data Vital Signs: Vital Signs Temp Pulse Resp BP Pulse Ox O2 Del Method O2 Flow Rate 97.1 F L 70 19 H 135/65 H 97 Room Air 2 08/08/24 08:00 08/08/24 09:00 08/08/24 09:00 08/08/24 09:00 08/08/24 09:00 08/08/24 09:00 08/08/24 02:00 FiO2 96 08/07/24 21:00 Oxygen Flow Rate (L/min) 2 Oxygen Delivery Method Room Air Weight: 232 lb 12.93 oz Body Mass Index (BMI) 30.7 Intake & Output: Intake and Output for Last 24 Hours 08/06/24 08/07/24 08/08/24 23:59 23:59 23:59 Intake Total 480 / 480 Output Total 1150 / 1150 250 / 250 Balance -670 / -670 -250 / -250 Lab / Micro Data 08/08/24 04:30 08/08/24 04:30 Labs: Laboratory Results - last 24 hr 08/08/24 04:30: WBC 6.9, RBC 4.00 L, Hgb 12.4 L, Hct 38.0 L, MCV 95.0 H, MCH 31.0, MCHC 32.6, RDW Std Deviation 46.8 H, RDW Coeff of Jacob 13.3, Plt Count 221, MPV 10.2, Immature Gran % (Auto) 0.700, Neut % (Auto) 69.3, Lymph % (Auto) 9.3 L, [place] % (Auto) 15.0 H, Eos % (Auto) 5.3 H, Baso % (Auto) 0.4, Absolute Neuts (auto) 4.7, Absolute Lymphs (auto) 0.64 L, Nucleated RBC % 0, ESR 51 H, Sodium 139, Potassium 4.5, Chloride 112 H, Carbon Dioxide 24.0, Anion Gap 3 L, BUN 37 H, Creatinine 1.15, Estim Creat Clear Calc 68.83, Est GFR (MDRD) Af Amer 79, Est GFR (MDRD) Non-Af 66, BUN/Creatinine Ratio 32.2 H, Glucose 116 H, Calcium 9.1, Triglycerides 130, Cholesterol 109, LDL Cholesterol 48, VLDL Cholesterol 26, HDL Cholesterol 35 L Micro: Microbiology 08/07/24 10:25 Stool Stool Occult Blood (RADHA) - Final Occult Blood Positive Rhythm Strip Rhythm Strip: Sinus bradycardia Cardiology Labs/Tests 08/08/24 04:30: WBC 6.9, RBC 4.00 L, Hgb 12.4 L, Hct 38.0 L, MCV 95.0 H, MCH 31.0, MCHC 32.6, Plt Count 221, MPV 10.2, Immature Gran % (Auto) 0.700, Neut % (Auto) 69.3, Lymph % (Auto) 9.3 L, [place] % (Auto) 15.0 H, Eos % (Auto) 5.3 H, Baso % (Auto) 0.4, Absolute Neuts (auto) 4.7, Nucleated RBC % 0, Sodium 139, Potassium 4.5, Chloride 112 H, Carbon Dioxide 24.0, Anion Gap 3 L, BUN 37 H, Creatinine 1.15, Est GFR (MDRD) Af Amer 79, Est GFR (MDRD) Non-Af 66, BUN/Creatinine Ratio 32.2 H, Glucose 116 H, Calcium 9.1, Triglycerides 130, Cholesterol 109, LDL Cholesterol 48, VLDL Cholesterol 26, HDL Cholesterol 35 L Rhythm: EKG: ECHO: Stress Test: Cardiac Cath: PCI: CT Surgery: Holter monitor: EPS: PPM: CXR: Chest CT Scan: Radiography Diagnostic Testing: Radiology Impression Echocardiogram 08/07/24 00:37 Interpretation Summary The left ventricular ejection fraction is 65 %. The left atrium is severely enlarged. Moderate size posterior pericardial effusion with no significant change in study from 08/05/2024. No echo evidence of tamponade. Ordering Physician: Anna Wallis Referring Physician: Alfredo Vasquez Performed By: Tarsha Shrestha, ELAINE, RVT Physical Exam Narrative Comfortable. No apparent distress. Heart sounds 1 and 2 are noted. No rubs are noted. Chest is clear to auscultation bilaterally. Alert oriented x 3. No ankle edema noted. Assessment & Plan Assessment/Plan (1) Elevated troponin: PLAN: Coronary angiography revealed no flow-limiting lesions or severe stenosis. Elevated troponin likely secondary to myopericarditis. Also could not rule out vasospasm. Continue NSAIDs and colchicine for myopericarditis. Started on amlodipine for possible vasospasm. (2) Pericarditis: PLAN: Patient remains on indomethacin and colchicine. No chest pain. (3) Pericardial effusion without cardiac tamponade: PLAN: Repeat echocardiogram shows stable pericardial effusion with no tamponade physiology. Actually the effusion may have slightly decreased in size as compared to his previous study. (4) Hypertension: QUALIFIERS: Hypertension type: primary hypertension Qualified Code(s): I10 - Essential (primary) hypertension PLAN: On lisinopril. Amlodipine. (5) Coronary artery disease: PLAN: Aspirin. Risk factor modification. PLAN: Plan May discharge home from a cardiology standpoint. Follow-up in the office in 1 to 2 weeks time.
[2024-08-08] MEDS: Furosemide 40 MG Tablet PO (10:28)
--- NOTE | 2024-08-08 11:08 | CASEMGMT ---
RN CM NOTE: Per Dr Smiley, pt will be discharging home today. RN CM to room. Introduced self and role. Pt sitting up in chair in room. @ bedside. Pt and deny having any discharge needs or concerns. He and aware of Rx for Indomethacin awaiting pick-up @ [facility] and state their daughter will pick that up as well as any new medications, if there are any @ dc. They were made aware to ask for CM if any needs arise prior to going home. Asya AYALAN RN CM
--- NOTE | 2024-08-08 13:32 | DCINST_ITS ---
Discharge Instructions Diet Discharge Diet: Low fat / Low cholesterol Activity Discharge Activity: Return to Normal Activity Weight Bearing Status: Weight bearing as tolerated Dressing / Incision Call your doctor if you observe: Fever of 101 or Higher, Shortness of breath, Dizziness, Swelling in the ankles, Chest pain and Increased palpitations (irregular heartbeat) Follow Up Care Test Results: Test results from this visit will be discussed in further detail at your follow- up appointment, if applicable. Discharge Plan Admission Admit Date/Time: 08/07/24 00:12 Primary Reason for Your Visit: myopericarditis Attending Provider: Rafia Smiley Primary Care Provider: Alfredo Vasquez Consulting Providers: Jian Olivas; Anna Wallis Instructions Patient Instructions: Pericarditis Additional Instructions / Restrictions: to try to take colchicine as tolerated. To stop if diarrhea recurs. Discharge Orders/Prescriptions Prescriptions: New amlodipine 5 mg Tablet 5 mg PO DAILY Qty: 30 2RF furosemide 20 mg tablet 20 mg PO DAILY Qty: 30 2RF potassium chloride 10 mEq tablet extended release 10 meq PO DAILY Qty: 30 1RF Continued aspirin 81 MG tablet,chewable 81 mg PO DAILY@0800 lisinopril 20 MG tablet 20 mg PO DAILY simvastatin 40 MG tablet 40 mg PO QHS sertraline 100 mg tablet 150 mg PO DAILY riboflavin (vitamin B2) 400 mg tablet 400 mg PO DAILY magnesium oxide 250 mg magnesium tablet 250 mg PO DAILY multivitamin [Daily Multi-Vitamin] Tablet 1 tab PO DAILY indomethacin 25 mg Capsule 50 mg PO TIDCM 28 Days Qty: 168 0RF colchicine 0.6 mg Capsule 0.6 mg PO BID 180 Days Qty: 360 0RF pantoprazole 20 mg tablet,delayed release (DR/EC) 40 mg PO DAILY Referrals / Follow Up: Jian Olivas MD [Med Staff - Active Staff] - Within 1 Week Alfredo Vasquez MD [Primary Care Provider] - Within 1 Week Disposition Disposition (needs filled in before D/C Order can be placed): Home, Self Care
--- NOTE | 2024-08-08 13:35 | PCM.DC.SUM ---
Providers Date of Admission: 08/07/24 Date of Discharge: 08/08/24 Primary Care Physician: Dr. Alfredo Vasquez MD Consultations 08/07/24 00:37 Consult: Cardiology Routine Consulting Provider: Jian Olivas Reason for Consult: Elevated trop, pericardiac effusion, ? myocarditis EMERGENT Consult: No MD Notified: Yes Date Notified: 08/07/24 Time Notified: 00:16 Method of Notification: ED Physician Initiated Reason For Visit: PERICARDIAL EFFUSION, ? MYOCARDITIS, NSTEMI Diagnosis Discharge Diagnosis (1) Elevated troponin: Status: Acute Code(s): R79.89 - Other specified abnormal findings of blood chemistry (2) Pericarditis: Status: Acute Code(s): I31.9 - Disease of pericardium, unspecified (3) Pericardial effusion without cardiac tamponade: Status: Acute Code(s): I31.39 - Other pericardial effusion (noninflammatory) (4) Hypertension: Status: Chronic Code(s): I10 - Essential (primary) hypertension Qualifiers: Hypertension type: primary hypertension Qualified Code(s): I10 - Essential (primary) hypertension (5) Coronary artery disease: Status: Acute Code(s): I25.10 - Atherosclerotic heart disease of council coronary artery without angina pectoris Plan #nonstemi admitted with a complaint of chest pain. EKG showed ST elevation in the inferior leads CT chest showed moderate pericardial effusion. cardiology consulted 2D echo ordered cardiology requested no heparin drip. Per cardiology he may have myopericarditis versus non-STEMI. Per cardiology to have cardiac cath. #pericarditis was discharged 2 days ago after being managed for pericarditis 2D echo done showed moderate pericardial effusion as well. He did have repeat echo on Monday08/05/2024 before being discharged, and echo showed that the effusion was similar to previous echoes and there was no evidence of tamponade. On colchicine and indomethacin as well as aspirin #Elevated Cr in the setting of CKD II #Bilateral renal hyponattenuating lesions stable. To follow up with PCP on outpatient basis for follow up imaging as deemed necessary #Hypertension: on lisinopril and HCTZ. IV hydralazine prn #Hyperlipidemia: on statin #Anxiety and depression; on sertraline DVT prophylaxis: SCDs Medications at Discharge Home Medications aspirin 81 mg chewable tablet 81 mg PO DAILY@0800 blood thinner 11/29/16 lisinopril 20 mg tablet 20 mg PO DAILY HTN 12/06/16 simvastatin 40 mg tablet 40 mg PO QHS HLD 12/06/16 magnesium oxide 250 mg PO DAILY supplement 08/03/24 multivitamin (Daily Multi-Vitamin tablet) 1 tab PO DAILY supplement 08/03/24 riboflavin (vitamin B2) 400 mg tablet 400 mg PO DAILY supplement 08/03/24 sertraline 100 mg tablet 150 mg PO DAILY . 08/03/24 colchicine 0.6 mg capsule 0.6 mg PO BID 180 days #360 caps 08/05/24 indomethacin 25 mg capsule 50 mg (2 x 25 mg) PO TIDCM 28 days #168 caps 08/05/24 pantoprazole 20 mg tablet,delayed release 40 mg PO DAILY GERD 08/07/24 amlodipine 5 mg tablet 5 mg PO DAILY #30 tabs 08/08/24 furosemide 20 mg tablet 20 mg PO DAILY #30 tabs 08/08/24 potassium chloride 10 mEq tablet,extended release 10 meq PO DAILY #30 tabs 08/08/24 Hospital Course Operations None Procedures 2-D Echocardiogram Summary of Care Provided Minutes Spent on Discharge: 57 Hospital Course: Patient is a 79-year-old male with an extensive past medical history as outlined who had recently been admitted and likely discharged just 2 days prior to this admission. He was admitted at that time for midsternal chest discomfort with shortness of breath and he had ST elevation in the inferior leads. CT of the chest done at that time showed moderate effusion and pericardial effusion and 2D echo did show evidence of moderate pericardial effusion with no evidence of tamponade. He was diagnosed with pericarditis. Cardiology was consulted and recommended that patient be started on indomethacin and colchicine. He had a repeat echocardiogram on the day of discharge which showed that the effusion was stable. He was discharged home on 08/05/2024 . However patient came back on 08/06/2024 to the ED because he had gotten short of breath at home and felt he had gained about 10 pounds since he had come in initially to the hospital. On admission in the ED, initial troponin was elevated at thousand 146 and a trended slightly down to thousand 139. Bedside echo done in the ED showed a stable pericardial effusion. He was continued on his aspirin and given sublingual nitroglycerin. Cardiology did not want any heparin drip at that time. He was therefore admitted and managed for non-STEMI in the setting of acute pericarditis with known pericardial effusion. CT of the chest was negative for any evidence of PE and showed a moderate-sized effusion which is slightly increased from prior imaging. Patient was continued on his indomethacin and colchicine. He did develop diarrhea during this admission to the colchicine was stopped. He had 2D echo which showed no flow-limiting lesions or severe stenosis. He did have another 2D echo which showed EF of 65% and severely enlarged left atrium as well as a moderate size posterior pericardial effusion with no significant change from the echo done on 08/05/2024 and there was no evidence of tamponade. Cardiology felt that his symptoms were likely due to myopericarditis and could not rule out a vasospasm. He was therefore started on p.o. amlodipine 5 mg daily. Patient and were concerned about his shortness of breath especially with ambulation. Due to concerns about possible fluid overload he was also started on p.o. Lasix 20 mg daily for which she was given a prescription at time of discharge in addition to a prescription for p.o. potassium chloride 10 mill equivalents daily to use concomitantly with the Lasix. At patient's request I did call his daughter Dr. Qiana Herzog ([phone]) and updated her about the plan of care. She expressed understanding. Patient was therefore discharged him on 08/08/2024. He is follow-up with his primary care doctor and follow-up with cardiology within 1 to 2 weeks. Patient was counseled to continue taking the colchicine as tolerated and to stop if the diarrhea recurred again. Patient seen and examined prior to discharge. He had no active complaints apart from feeling short of breath with mild exertion. Review of systems otherwise negative. Labs and vitals reviewed. Home medication reviewed and reconciled. Physical Exam Const alert, oriented x3, no apparent distress and well nourished General Appearance: cooperative, comfortable, well kempt and well developed Orientation / Consciousness: awake Exam Limitations: no limitations HEENT normocephalic, head/scalp atraumatic, hearing grossly normal bilaterally and moist oral mucous membranes Mouth: oral and palatal mucosa normal Eyes PERRL, EOMs intact bilaterally and conjunctivae normal Neck no lymphadenopathy, supple and no JVD Lymph Lymphatic: no lymphadenopathy noted and no lymphedema noted Resp Resp Narrative: mildly diminished breath sounds bibasally, no wheezes or crackles. On room air. Cardio regular rhythm, S1 normal heart sound, S2 normal heart sound and no murmurs Cardio Narrative: mildly bradycardic, normal S1 and S2, no murmurs. GI normal to inspection, nondistended, normoactive bowel sounds, soft to palpation, non-tender and non-distended Extremity normal to inspection, full ROM, normal capillary refill, no clubbing, cyanosis or edema and no calf tenderness General Extremity: no tenderness to palpation of joints or extremities Skin no rashes or lesions noted General Skin Exam: no breakdown Neuro oriented x3, CN's II-XII intact bilaterally, moves all extremities, no focal motor deficits, no sensory deficits noted and deep tendon reflexes 2+ bilaterally Motor Exam: strength 5/5 throughout and general weakness Psych thought process normal, cooperative and affect normal Appearance: appropriate Weight / BMI Weight Weight: 232 lb 12.93 oz Body Mass Index (BMI) 30.7 ABG / Lab / Microbiology Data 08/08/24 04:30 08/08/24 04:30 Laboratory: Laboratory Results - last 24 hr 08/08/24 04:30: WBC 6.9, RBC 4.00 L, Hgb 12.4 L, Hct 38.0 L, MCV 95.0 H, MCH 31.0, MCHC 32.6, RDW Std Deviation 46.8 H, RDW Coeff of Jacob 13.3, Plt Count 221, MPV 10.2, Immature Gran % (Auto) 0.700, Neut % (Auto) 69.3, Lymph % (Auto) 9.3 L, Dawes % (Auto) 15.0 H, Eos % (Auto) 5.3 H, Baso % (Auto) 0.4, Absolute Neuts (auto) 4.7, Absolute Lymphs (auto) 0.64 L, Nucleated RBC % 0, ESR 51 H, Sodium 139, Potassium 4.5, Chloride 112 H, Carbon Dioxide 24.0, Anion Gap 3 L, BUN 37 H, Creatinine 1.15, Estim Creat Clear Calc 68.83, Est GFR (MDRD) Af Amer 79, Est GFR (MDRD) Non-Af 66, BUN/Creatinine Ratio 32.2 H, Glucose 116 H, Calcium 9.1, Triglycerides 130, Cholesterol 109, LDL Cholesterol 48, VLDL Cholesterol 26, HDL Cholesterol 35 L Microbiology: Microbiology 08/07/24 10:25 Stool Stool Occult Blood (RADHA) - Final Occult Blood Positive Radiography Diagnostic Testing: Radiology Impression Echocardiogram 08/07/24 00:37 Interpretation Summary The left ventricular ejection fraction is 65 %. The left atrium is severely enlarged. Moderate size posterior pericardial effusion with no significant change in study from 08/05/2024. No echo evidence of tamponade. Ordering Physician: Anna Wallis Referring Physician: Alfredo Vasquez Performed By: Tarsha Shrestha, RDCS, RVT D/C Instructions Discharge Diet: Low fat / Low cholesterol Discharge Activity: Return to Normal Activity Weight Bearing Status: Weight bearing as tolerated Call your doctor if you observe: Fever of 101 or Higher, Shortness of breath, Dizziness, Swelling in the ankles, Chest pain and Increased palpitations (irregular heartbeat) Meaningful Use Info Meaningful Use Meaningful Use Diagnoses (Choose all that apply): None applicable Ischemic Stroke Statin Dosing Therapy Reference: STATIN DOSE THERAPY REFERENCE: * Patients > 75 years receive moderate or high dose statin therapy. * Patients 75 years or YOUNGER should receive HIGH intensity statin dose unless contraindicated. You will be required to document reason for non-treatment if statin daily dose does not meet guidelines. HIGH DOSE STATIN THERAPY DAILY Atorvastatin > than or = to 40 mg Rosuvastatin > than or = to 20 mg Amlodipine + Atorvastatin > than or = to 2.5/40 mg Ezetimibe + Simvastatin 10/80 mg Simvastatin 80mg Discharge Plan Admission Admit Date/Time: 08/07/24 00:12 Primary Reason for Your Visit: myopericarditis Attending Provider: Rafia Smiley Primary Care Provider: Alfredo Vasquez Consulting Providers: Jian Olivas; Anna Wallis Instructions Patient Instructions: Pericarditis Additional Instructions / Restrictions: to try to take colchicine as tolerated. To stop if diarrhea recurs. Discharge Orders/Prescriptions Prescriptions: New amlodipine 5 mg Tablet 5 mg PO DAILY Qty: 30 2RF furosemide 20 mg tablet 20 mg PO DAILY Qty: 30 2RF potassium chloride 10 mEq tablet extended release 10 meq PO DAILY Qty: 30 1RF Continued aspirin 81 MG tablet,chewable 81 mg PO DAILY@0800 lisinopril 20 MG tablet 20 mg PO DAILY simvastatin 40 MG tablet 40 mg PO QHS sertraline 100 mg tablet 150 mg PO DAILY riboflavin (vitamin B2) 400 mg tablet 400 mg PO DAILY magnesium oxide 250 mg magnesium tablet 250 mg PO DAILY multivitamin [Daily Multi-Vitamin] Tablet 1 tab PO DAILY indomethacin 25 mg Capsule 50 mg PO TIDCM 28 Days Qty: 168 0RF colchicine 0.6 mg Capsule 0.6 mg PO BID 180 Days Qty: 360 0RF pantoprazole 20 mg tablet,delayed release (DR/EC) 40 mg PO DAILY Referrals / Follow Up: Jian Olivas MD [Med Staff - Active Staff] - Within 1 Week Alfredo Vasquez MD [Primary Care Provider] - Within 1 Week Disposition Disposition (needs filled in before D/C Order can be placed): Home, Self Care Charges/Coding Visit Charges Inpatient E&M: 51176 Disch Hosp >30min
--- NOTE | 2024-08-13 08:24 | CL.D_ITS ---
Patient Name: BHAVNA ROCA Study Date: 08/07/2024 Performing: Jian Olivas MD Ht: 73 inches 185.42 cm : 1945 Wt: 234.35 lbs 106.3 kg Age: 79 Gender: male BSA: 2.3 PROCEDURE(S) PERFORMED [id number])[facility] CLINICAL PROFILE AND INDICATIONS Indications: Suspected CAD Heart Failure: None CAD Presentations: Other: Dyspnea on exertion CONCLUSIONS Moderate 3 vessel disease with 50% ostial RCA, 50% distal LMCA. 50% Prox LCX and 40-50% Mid LAD RECOMMENDATIONS Medical therapy Risk factor modification DESCRIPTION OF PROCEDURE The patient arrived to the procedure lab. The risks and benefits of the procedure as well as a full description of our services here and current unavailability of surgical backup were fully explained to the patient and/or their significant other prior to the catheterization. The Timeout was completed, verifying the correct patient and procedure. The patient's procedural site was prepped and draped in the usual fashion. Local anesthetic was given subcutaneously to right radial region with Lidocaine 2%. Using a modified Seldinger technique, arterial access was obtained via the right radial artery, a 6Fr sheath was inserted. Right Coronary Artery selective angiography was then performed in multiple views using a 5 Fr. 4.0 Camak catheter. Left Coronary Artery selective angiography was performed in multiple views using a 5 Fr. 4.0 Camak catheter.The arterial sheath was pulled and a TR Band was applied for hemostasis CORONARY ANGIOGRAPHY DOMINANCE: Right Dominant LEFT MAIN: Tubular 50% Distal lesion in LMCA LEFT ANTERIOR DESCENDING ARTERY: LAD: Tubular 50% Mid lesion in LAD RIGHT CORONARY ARTERY: RCA: Tubular 50% Ostial lesion in RCA Tubular 40% Mid lesion in RCA COMPLICATIONS No Complications PROCEDURE MEDICATIONS Versed 1 mg IV Fentanyl 50 mcg IV Oxygen: 2 L/min via nasal cannula Heparin given IA 08/07/2024 12:54:22 Verapamil 2.5mg, Ntg 200mcgs, 2000 units of Heparin given IA 08/07/2024 12:54:22 SUMMARY OF HEMODYNAMIC DATA Time AIR REST ECG 12:45:13 AO 124/76 (96) SA 13:06:44 AIR REST 13:29:27 Signed By Jian Olivas MD On 08/13/2024 08:23:57 Jian Olivas MD
== END 2024-08-08 14:15 | disposition home or self-care (01) | DRG 287 ==
LOC: ED 21:05 → ICU 08-07 05:53
PROVIDERS: Internal Medicine Cardiovascular Disease; Admitting Provider Family Medicine; Emergency Provider Emergency Medicine; PCP Family Medicine; Visit Provider Student in an Organized Health Care Education/Training Program
DX: I30.9 Acute pericarditis, unspecified (principal); E66.9 Obesity, unspecified; I12.9 Hypertensive chronic kidney disease with stage 1 through stage 4 chronic kidney disease, or unspecified chronic kidney disease; F32.A Depression, unspecified; E78.00 Pure hypercholesterolemia, unspecified; N18.2 Chronic kidney disease, stage 2 (mild); I25.10 Atherosclerotic heart disease of native coronary artery without angina pectoris; F41.9 Anxiety disorder, unspecified; I25.111 Atherosclerotic heart disease of native coronary artery with angina pectoris with documented spasm; Z68.30 Body mass index [BMI] 30.0-30.9, adult; Z79.82 Long term (current) use of aspirin; Z79.899 Other long term (current) drug therapy
CPT/HCPCS: 71275; 80048; 80053; 80061; 82274; 82728; 83036; 83540; 83550; 83735; 84145; 84439; 84443; 84484; 85025; 85610; 85652; 85730; 86140; 93005; 93308; 93454; 94668; 94762; 97161; 99152; 99153; 99252; 99285; Q9967; A4216; C1769; C1894; G0463

== ENCOUNTER → 2024-09-11 | Outpatient (CLI) | payer MEDICARE, OTHER, SELFPAY ==
--- NOTE | 2024-09-11 12:51 | ECHOL_ITS ---
Reason For Study: Pericardial Effusion Procedure This was a limited 2D transthoracic echocardiogram. Exam performed in department. Left Ventricle Normal LV size. Left ventricular systolic function is normal. The left ventricular ejection fraction is 55 %. No regional wall motion abnormalities noted. Right Ventricle Normal RV size. Normal systolic function. Mitral Valve Normal mitral valve. Tricuspid Valve Normal tricuspid valve. Aortic Valve Trisinus/trileaflet aortic valve. Great Vessels Normal aortic root. The pulmonary artery is normal size. Normal inferior vena cava. Pericardium/Pleural Trivial pericardial effusion. MMode/2D Measurements & Calculations LVIDd: 4.9 cm IVSd: 1.0 cm LAV(MOD-bp): 47.6 ml LVIDs: 3.0 cm LVPWd: 0.93 cm LAV(MOD-bp) Indexed: 20.7 ml/m2 FS: 39.6 % LAV(MOD-sp2): 46.4 ml LAV(MOD-sp4): 44.5 ml LA A4 area: 18.4 cm2 RA A4 area: 15.8 cm2 Doppler Measurements & Calculations TR max joann: 216.3 cm/sec TR max P.7 mmHg ECHO/Echo, Limited Study Interpretation Summary Normal LV size. Left ventricular systolic function is normal. The left ventricular ejection fraction is 55 %. Trivial pericardial effusion. Compared to the previous echocardiogram this is a significant improvement. Ordering Physician: Jackson Blake Referring Physician: Jackson Blake Performed By: Arturo Hernandez RCS
== END | disposition home or self-care (01) ==
LOC: CVS 12:50
PROVIDERS: PCP Family Medicine; Referring Provider Internal Medicine Cardiovascular Disease; Visit Provider Internal Medicine Cardiovascular Disease
DX: I31.39 Other pericardial effusion (noninflammatory) (principal)
CPT/HCPCS: 93308

== ENCOUNTER → 2024-10-22 | Outpatient (CLI) | payer MEDICARE, OTHER, SELFPAY ==
[2024-10-22 12:03] LABS: Absolute Lymphocyte Count 1.02 X10^3/uL (0.83-4.51); Absolute Neutrophil Count 5.9 X10^3/uL (2.0-7.7); Basophil# 0.05 X10^3/uL; Basophil% 0.6 % (0-1); Eosinophil# 0.22 X10^3/uL; Eosinophils% 2.8 % (0-5); Hematocrit 48.9 % (40-54); Hemoglobin 15.5 g/dL (13.0-16.5); Lymphocyte # 1.02 X10^3/ul (0.83-4.51); Lymphocyte % 12.8 % (19-41); Mean Corp Hgb Conc 31.7 g/dL (32-36); Mean Corpuscular Volume 91.4 fL (80-94); Monocyte# 0.75 X10^3/uL; Monocyte% 9.4 % (0-10); NRBC Flagged by Analyzer 0 % (0-5); Neutrophil # 5.92 X10^3/uL (2.7-7.7); Neutrophil % 73.9 % (47-70); Platelet Count 253 K/mm3 (150-450); RBC Distribution Width SD 47.3 fl (35.1-43.9); Red Blood Count 5.35 M/mm3 (4.6-6.2)
== END | disposition home or self-care (01) ==
LOC: MFPLAB 10:53
PROVIDERS: Internal Medicine Cardiovascular Disease; PCP Family Medicine; Referring Provider Family Medicine; Visit Provider Family Medicine
DX: R19.5 Other fecal abnormalities (principal)
CPT/HCPCS: 36415; 85025

== ENCOUNTER → 2024-11-01 | Outpatient (CLI) | payer MEDICARE, OTHER, SELFPAY ==
--- NOTE | 2024-11-01 11:10 | RAD_ITS ---
EXAM: XR CHEST, 2 VIEWS CLINICAL INDICATION: Increased SOB, recent hx pericardial effusion TECHNIQUE: Frontal and lateral views of the chest. COMPARISON: Single view chest 08/03/2024 FINDINGS: LUNGS AND PLEURAL SPACES: Stable eventration of the left diaphragm with associated left basilar atelectasis. No pneumothorax. No effusion. HEART: Mild enlargement of the cardiac silhouette. MEDIASTINUM: Central airways and mediastinal contour are unremarkable. BONES/JOINTS: Unremarkable. No acute fracture. SOFT TISSUES: Unremarkable. RAD/Chest PA and Lateral IMPRESSION: 1. Stable eventration of the left diaphragm with associated left basilar atelectasis. 2. Mild enlargement of the cardiac silhouette, stable. Electronically Signed: Ricky Muñoz MD at 12:07 EST ,
[2024-11-01 12:42] LABS: Erythrocyte Sedimentation Rate 3 mm/hr (0-20)
[2024-11-01 12:44] LABS: Absolute Lymphocyte Count 1.07 X10^3/uL (0.83-4.51); Absolute Neutrophil Count 3.9 X10^3/uL (2.0-7.7); Basophil# 0.04 X10^3/uL; Basophil% 0.7 % (0-1); Eosinophil# 0.27 X10^3/uL; Eosinophils% 4.5 % (0-5); Hemoglobin 15.8 g/dL (13.0-16.5); Lymphocyte # 1.07 X10^3/ul (0.83-4.51); Lymphocyte % 17.7 % (19-41); Mean Corp Hgb Conc 32.9 g/dL (32-36); Mean Corpuscular Hgb 29.8 pg (27.0-32.0); Mean Corpuscular Volume 90.4 fL (80-94); Monocyte% 13.2 % (0-10); NRBC Flagged by Analyzer 0 % (0-5); Neutrophil # 3.85 X10^3/uL (2.7-7.7); Neutrophil % 63.4 % (47-70); Platelet Count 237 K/mm3 (150-450); RBC Distribution Width CV 14.4 % (11.6-14.6); RBC Distribution Width SD 47.3 fl (35.1-43.9); Red Blood Count 5.31 M/mm3 (4.6-6.2); White Blood Count 6.1 K/mm3 (4.4-11.0)
[2024-11-01 13:08] LABS: Anion Gap 2 (5-15); BUN 21 mg/dL (7-18); BUN/Creat Ratio 19.8 RATIO (10-20); Calcium,Total 9.7 mg/dL (8.5-10.1); Chloride 107 mmol/L (98-107); Creatinine, Serum 1.06 mg/dL (0.70-1.30); EST Glomerular Filtration Rate 72 mL/min (>60); Est Glom Filt Rate - Afr Amer 87 mL/min (>60); Glucose 101 mg/dL (74-106); Potassium 4.6 mmol/L (3.5-5.1); Sodium Level 138 mmol/L (136-145)
[2024-11-04 18:07] LABS: BNP,B-Type NATRIURETIC PEPTIDE 38.6 pg/mL (0-100)
== END | disposition home or self-care (01) ==
LOC: RAD 11:07
PROVIDERS: PCP Family Medicine; Referring Provider Physician Assistant Medical; Visit Provider Physician Assistant Medical
DX: R06.02 Shortness of breath (principal); I30.0 Acute nonspecific idiopathic pericarditis; I25.10 Atherosclerotic heart disease of native coronary artery without angina pectoris; I31.39 Other pericardial effusion (noninflammatory); Z51.81 Encounter for therapeutic drug level monitoring; Z79.899 Other long term (current) drug therapy
CPT/HCPCS: 36415; 71046; 80048; 83880; 85025; 85652

== ENCOUNTER 2024-11-06 18:16 | Emergency (ER) | payer MEDICARE, OTHER, SELFPAY ==
[2024-11-06 18:16] VITALS: BP 109/60; PULSE 86; RESP 30; TEMP 37; O2SAT 93
[2024-11-06 18:20] VITALS: BP 137/62; PULSE 86; RESP 22; TEMP 37; O2SAT 95
[2024-11-06 18:23] VITALS: O2SAT 95
[2024-11-06 18:25] VITALS: BMI 30.4
--- NOTE | 2024-11-06 18:32 | EKG12_ITS ---
Test Reason : DYSRHYTHMIA Blood Pressure : */* mmHG Vent. Rate : 78 BPM Atrial Rate : 78 BPM P-R Int : 136 ms QRS Dur : 96 ms QT Int : 360 ms P-R-T Axes : 52 7 65 degrees QTcB Int : 410 ms Normal sinus rhythm Inferior infarct , age undetermined Abnormal ECG Confirmed by CHRISTINA GAITAN, LORNA ([id number]), video tape editor BHARATH PEREZ ([id number]) on 11/07/2024 10:59:55 AM Referred By: Confirmed By: LORNA VASQUEZ MD
--- NOTE | 2024-11-06 18:50 | RAD_ITS ---
INDICATION: Dyspnea and tachypnea EXAMINATION/TECHNIQUE: X-RAY - XR Chest 2 Views COMPARISON: November 01, 2024 FINDINGS: LINES/DEVICES: None. LUNGS: No consolidation, edema or effusion. Basilar atelectasis. No pneumothorax. MEDIASTINUM AND CARDIOVASCULAR STRUCTURES: Cardiac silhouette not enlarged. Central airways and mediastinal contour are unremarkable. BONES AND SOFT TISSUES: Mild degenerative vertebral changes. Status post surgical fusion of the lower cervical levels. RAD/Chest PA and Lateral IMPRESSION: Basilar atelectasis. Electronically Signed: Danny Wilkerson DO at 19:16 EST Reading Location ID and State: [facility] / [place] Tel [phone], Service support ,
[2024-11-06 18:53] LABS: Absolute Lymphocyte Count 1.25 X10^3/uL (0.83-4.51); Absolute Neutrophil Count 7.9 X10^3/uL (2.0-7.7); Basophil# 0.03 X10^3/uL; Basophil% 0.3 % (0-1); Eosinophil# 0.13 X10^3/uL; Eosinophils% 1.3 % (0-5); Hematocrit 47.1 % (40-54); Hemoglobin 15.7 g/dL (13.0-16.5); Lymphocyte # 1.25 X10^3/ul (0.83-4.51); Mean Corp Hgb Conc 33.3 g/dL (32-36); Mean Corpuscular Volume 90.1 fL (80-94); Mean Platelet Vol. 10.3 fl (6.2-12.0); Monocyte# 1.04 X10^3/uL; NRBC Flagged by Analyzer 0 % (0-5); Neutrophil # 7.91 X10^3/uL (2.7-7.7); Platelet Count 246 K/mm3 (150-450); RBC Distribution Width CV 14.5 % (11.6-14.6); RBC Distribution Width SD 47.2 fl (35.1-43.9); Red Blood Count 5.23 M/mm3 (4.6-6.2); White Blood Count 10.4 K/mm3 (4.4-11.0)
[2024-11-06 19:08] LABS: Erythrocyte Sedimentation Rate 7 mm/hr (0-20)
[2024-11-06 19:09] LABS: AST(SGOT) 22 U/L (15-37); Alanine Aminotransfer ALT/SGPT 32 U/L (16-61); Albumin, Serum 3.4 g/dL (3.2-5.0); Alkaline Phosphatase 96 U/L (45-117); Anion Gap 7 (5-15); BUN 26 mg/dL (7-18); BUN/Creat Ratio 20.3 RATIO (10-20); Calcium,Total 9.4 mg/dL (8.5-10.1); Chloride 106 mmol/L (98-107); Creatinine, Serum 1.28 mg/dL (0.70-1.30); EST Glomerular Filtration Rate 58 mL/min (>60); Est Glom Filt Rate - Afr Amer 70 mL/min (>60); Estimated Creatinine Clearance 61.35 ml/min; Globulin 3.3 g/dL (2.2-4.2); Glucose 135 mg/dL (74-106); Potassium 4.2 mmol/L (3.5-5.1); Protein, Total 6.7 g/dL (6.4-8.2); Sodium Level 138 mmol/L (136-145); Troponin-I HS 6 pg/mL (3.0-78.0)
[2024-11-06 19:09] LABS: Lactic Acid 1.9 mmol/L (0.4-1.9)
[2024-11-06 19:16] VITALS: BP 164/62; PULSE 42; RESP 12; O2SAT 99
--- NOTE | 2024-11-06 19:58 | EDS_ITS ---
HPI History of Present Illness Chief Complaint: Shortness of Breath Detail of Chief Complaint: Dyspnea and dyspnea on exertion Informant: patient, spouse/S.O. and family Onset/Context/Timing Onset: Days (Past several days) Context: sudden Timing: Continuous and Waxes and wanes Quality: Positive for Dyspnea on exertion and Orthopnea; Negative for PND or Wheezing Current Severity: Mild Maximum Severity: Moderate Worsened by: Exertion and Lying flat Relieved by: Nothing Associated Symptoms cough; Negative for rhinorrhea, post nasal drip, ear pain, fever, sore throat, subjective, chills, sweats, clear sputum, white sputum, yellow sputum or green sputum Chest Pain: Positive for None Narrative Narrative: Patient is a 79-year-old male. He was diagnosed with pericarditis this past July. He also had myocarditis. He was treated with indomethacin and colchicine. He has developed shortness of breath over the past couple days and has symptoms similar to when he was diagnosed with pericarditis/myocarditis. Patient denies chest discomfort. Patient denies fever, chills night sweats. Patient denies pain in his left trapezius area. Patient does report shortness of breath with activity. There is been slight swelling of his lower legs. He denies any recent upper respiratory infection like symptoms. He denies GI symptoms which include nausea, vomiting or diarrhea. Nuys abdominal pain. He denies dysuria, frequency, urgency or hematuria. He has no history of PE. PE Risk Factors: Negative for Cancer, OCP + Smoking + > 35, Prior DVT or PE, Recent immobilization, Recent surgery or Recent travel Prior similar symptoms: Yes (July and diagnosed with pericarditis and pericardial effusion without ) Recent Illness/Hospitalization: No PFSH [facility] Medical History Coronary artery disease Pericardial effusion without cardiac tamponade Pericarditis Hypercholesterolemia Hypertension Elevated troponin Non-ST elevation AL (NSTEMI) Myocarditis Pericarditis Acute pericardial effusion Chest pain CKD (chronic kidney disease), stage II Obesity History of nephrolithiasis Anxiety and depression Home Medications ?Medication ?Instructions ?Recorded ?Last Taken ?Type aspirin 81 mg chewable tablet 81 mg PO DAILY@0800 blood thinner 11/29/16 07/24/17 History lisinopril 20 mg tablet 20 mg PO DAILY HTN 12/06/16 Unknown History simvastatin 40 mg tablet 40 mg PO QHS HLD 12/06/16 Unknown History magnesium oxide 250 mg PO DAILY supplement 08/03/24 Unknown History multivitamin (Daily Multi-Vitamin 1 tab PO DAILY supplement 08/03/24 Unknown History tablet) sertraline 100 mg tablet 200 mg PO DAILY . 08/03/24 Unknown History amlodipine 5 mg tablet 5 mg PO DAILY #90 tabs 08/13/24 Unknown Rx coQ10 (ubiquinol) 100 mg capsule 200 mg PO QDAY 08/13/24 Unknown History (Qunol Justin CoQ10) colchicine 0.6 mg tablet 0.6 mg PO QDAY #90 tabs 08/13/24 Unknown Rx potassium chloride 10 mEq 10 meq PO DAILY #90 tabs 10/10/24 Unknown Rx tablet,extended release furosemide 20 mg tablet 20 mg PO DAILY #90 tabs 11/04/24 Unknown Rx Allergy/AdvReac Type Severity Reaction Status Date / Time No Known Allergies Allergy Verified 11/06/24 18:20 Family History Mother Heart disease Hypertension Father Prostate cancer Surgical History S/P cholecystectomy History of cochlear implant S/P ureteral stent placement Social History household members: spouse Smoking Status: Never smoker alcohol intake: never substance use type: does not use ROS ROS ED Constitutional Constitutional ED: Denies chills, fever(s), sweats or weight loss Eyes Eyes: Denies blurry vision or change in vision ENT ENT ED: Denies ear pain, rhinorrhea or sore throat Cardiovascular Cardiovascular: Reports orthopnea; Denies chest pain, palpitations, paroxysmal nocturnal dyspnea or racing heartbeat Respiratory/Chest Respiratory/Chest: Reports dyspnea, dyspnea on exertion and orthopnea; Denies cough, paroxysmal nocturnal dyspnea or sputum Gastrointestinal Gastrointestinal: Denies abdominal pain, constipation, diarrhea, melena, nausea or vomiting Genitourinary Genitourinary ED: Denies dysuria or hematuria Musculoskeletal Musculoskeletal: Denies arthralgias, back pain or myalgias Neurologic Neurologic: Denies headache(s) Hematologic/Lymphatic Hematologic/Lymphatic: Denies easy bleeding or easy bruising EXAM Physical Exam Const Vital Signs: 11/06/24 18:16 11/06/24 18:20 11/06/24 18:23 Temperature 98.6 F 98.6 F Temperature Source Oral Temporal Pulse Rate 86 86 Respiratory Rate 30 H 22 H Respiratory Effort Short of Breath Respiratory Depth Shallow Respiratory Pattern Tachypnea Blood Pressure 109/60 137/62 H Blood Pressure Mean 76 87 Pulse Ox 93 95 Oxygen Delivery Method Room Air Nasal Cannula 11/06/24 19:16 11/06/24 20:16 Temperature Temperature Source Pulse Rate 42 L 39 L Respiratory Rate 12 12 Respiratory Effort Respiratory Depth Respiratory Pattern Blood Pressure 164/62 H 156/72 H Blood Pressure Mean 96 100 Pulse Ox 99 99 Oxygen Delivery Method Room Air Room Air Positive well nourished and well developed Constitutional Narrative: BMI is 30.4. Patient was initially tachypneic. He improved with rest. General Appearance ED: well developed; Negative for pallor HEENT Reports moist mucous membranes atraumatic; Negative for tenderness Eyes PERRL and EOMs intact bilaterally General Eye ED: Negative for pale conjunctiva or scleral icterus Neck no lymphadenopathy, supple, no meningeal signs and no JVD Resp normal respiratory effort and clear to auscultation bilaterally Cardio regular rate, regular rhythm, S1 normal heart sound, S2 normal heart sound and no murmurs GI non-tender, non-distended and no masses Auscultation: normoactive bowel sounds Palpation: soft; Negative for hepatomegaly, splenomegaly or mass Back/Spine no CVA tenderness Extremity General Extremety ED: Yes edema General Extremity: edema Neuro oriented x3, CN's II-XII intact bilaterally and no sensory deficits noted [place] Coma Scale: document GCS findings Spontaneous Obeys Commands Oriented 15 Sensorium / Orientation: alert Speech: speech normal Motor Exam: strength 5/5 throughout Psych mental status grossly normal Skin no wounds and skin turgor normal General Skin Exam: Negative for jaundice or pallor MDM MDM MDM Narrative Medical decision making narrative: With patient having dyspnea need to consider pericardial fusion, doubt tamponade, myocardial ischemia, pneumonia, pneumothorax, congestive heart failure. Office records and cardiology consult were reviewed over the past several months. Patient underwent cardiac catheterization. He had an echo that revealed pericardial effusion without tamponade. Cardiac cath revealed no significant coronary disease. He was treated with indomethacin and colchicine for his pericardial effusion. Dr. Chávez was consulted. Discussed whether patient could have an outpatient echo done tomorrow or whether he would need to be admitted and obtain echo as an inpatient. He recommended patient calling the office tomorrow and he would set up things for an echo. History & Record Review Discussion w/independent historian: Patient, Family and Significant other Additional record(s) reviewed:: Prior inpatient record, Prior outpatient record, Prior ED visit, Prior labs and Other (Inpatient, outpatient records and cardiology records were summarized in the MDM portion of the medical record) Lab Data Attestation: I reviewed the patient's lab results. Lab results narrative: CBC is unremarkable. Basic metabolic panel does not elevated BUN of 26. Creatinine is 1.28 with an estimated GFR 58. Lactate is normal at 1.9. Glucose slight elevated 135 with a normal CO2 anion gap. C-reactive protein is elevated at 35.1. ESR is normal. Troponin is normal at 6. Labs: Laboratory Results - last 24 hr 11/06/24 11/06/24 18:28 18:36 WBC 10.4 RBC 5.23 Hgb 15.7 Hct 47.1 MCV 90.1 MCH 30.0 MCHC 33.3 RDW Std Deviation 47.2 H RDW Coeff of Jacob 14.5 Plt Count 246 MPV 10.3 Immature Gran % (Auto) 0.400 Neut % (Auto) 76.0 H Lymph % (Auto) 12.0 L Zapata % (Auto) 10.0 Eos % (Auto) 1.3 Baso % (Auto) 0.3 Absolute Neuts (auto) 7.9 H Absolute Lymphs (auto) 1.25 Nucleated RBC % 0 ESR 7 Sodium 138 Potassium 4.2 Chloride 106 Carbon Dioxide 25.0 Anion Gap 7 BUN 26 H Creatinine 1.28 Estim Creat Clear Calc 61.35 Est GFR (MDRD) Af Amer 70 Est GFR (MDRD) Non-Af 58 L BUN/Creatinine Ratio 20.3 H Glucose 135 H Lactic Acid 1.9 Calcium 9.4 Total Bilirubin 0.80 AST 22 ALT 32 Alkaline Phosphatase 96 Troponin I High Sens 6 C-React Prot Ext Range 35.10 H Total Protein 6.7 Albumin 3.4 Globulin 3.3 Albumin/Globulin Ratio 1.0 Radiography Chest X-Ray - ED: 2 View and Read by ED Physician (2 view chest x-ray reveals elevation of the left hemidiaphragm. This obscures the left heart border. There appears to be atelectasis. There is no evidence of cephalization curly B- lines or infiltrate. There is no obvious effusion. [place] structures are unre markable. The heart has a bruise-like ) Diagnostic Testing: Clinical Impression(s) from Imaging Studies Chest X-Ray 11/06/24 18:50 IMPRESSION: Basilar atelectasis. Electronically Signed: Dannypaul Wilkerson DO at 19:16 EST Reading Location ID and State: [facility] / [place] Tel [phone], Service support , Management Discussion w/another healthcare provider: Tube Former Operator (Case was discussed with Dr. Bragg on-call for the group. He was made aware of patient's history, physical, prior studies.) Discharge Plan Triage Chief Complaint: Shortness of Breath ED Provider: Delmar Wild Dx/Rx/DC Orders Clinical Impression: Acute dyspnea, Hypertension, Pericardial effusion without cardiac tamponade, Hypercholesterolemia, Coronary artery disease, History of pericarditis Instructions: ED Dyspnea Prescriptions: No Action coQ10 (ubiquinol) [Qunol Justin CoQ10] 100 mg capsule 200 mg PO QDAY amlodipine 5 mg tablet 5 mg PO DAILY Qty: 90 3RF colchicine 0.6 mg tablet 0.6 mg PO QDAY Qty: 90 1RF aspirin 81 MG tablet,chewable 81 mg PO DAILY@0800 lisinopril 20 MG tablet 20 mg PO DAILY simvastatin 40 MG tablet 40 mg PO QHS sertraline 100 mg tablet 200 mg PO DAILY magnesium oxide 250 mg magnesium tablet 250 mg PO DAILY multivitamin [Daily Multi-Vitamin] Tablet 1 tab PO DAILY potassium chloride 10 mEq tablet extended release 10 meq PO DAILY Qty: 90 3RF furosemide 20 mg tablet 20 mg PO DAILY Qty: 90 3RF Primary Care Provider: Alfredo Vasquez Referrals: Zaki Chávez MD [Med Staff - Active Staff] - As soon as possible Alfredo Vasquez MD [Primary Care Provider] - Activity Restrictions/Additional Instructions: Call cardiology office tomorrow morning to set up outpatient echocardiogram to evaluate for pericardial effusion. Print Language: Marshallese Disposition Disposition: Home, Self Care
[2024-11-06 20:16] VITALS: BP 156/72; PULSE 39; RESP 12; O2SAT 99
[2024-11-06 21:00] VITALS: BP 128/68; PULSE 73; RESP 20; O2SAT 96
== END 2024-11-06 21:04 | disposition home or self-care (01) ==
PROVIDERS: Emergency Provider Emergency Medicine; PCP Family Medicine; Visit Provider Emergency Medicine
DX: R06.00 Dyspnea, unspecified (principal); I31.39 Other pericardial effusion (noninflammatory); I12.9 Hypertensive chronic kidney disease with stage 1 through stage 4 chronic kidney disease, or unspecified chronic kidney disease; N18.2 Chronic kidney disease, stage 2 (mild); E78.00 Pure hypercholesterolemia, unspecified; I25.10 Atherosclerotic heart disease of native coronary artery without angina pectoris; I25.2 Old myocardial infarction; Z79.899 Other long term (current) drug therapy
CPT/HCPCS: 71046; 80053; 83605; 84484; 85025; 85652; 86140; 87631; 93005; 99284; A4216

== ENCOUNTER → 2024-11-08 | Outpatient (CLI) | payer MEDICARE, OTHER, SELFPAY ==
--- NOTE | 2024-11-08 08:50 | ECHOD_ITS ---
Reason For Study: SHORTNESS OF BREATH Procedure This was a 2D Doppler, Color Flow transthoracic echocardiogram. Exam performed in department. Left Ventricle Normal LV size. Left ventricular systolic function is normal. The left ventricular ejection fraction is 65 %. No regional wall motion abnormalities noted. Right Ventricle Normal RV size. Normal systolic function. Atria Normal left atrium. Normal right atrium. Mitral Valve Normal mitral valve. Tricuspid Valve Normal tricuspid valve. Aortic Valve Trisinus/trileaflet aortic valve. Great Vessels Normal aortic root. The pulmonary artery is normal size. Pericardium/Pleural No pericardial effusion. MMode/2D Measurements & Calculations LVIDd: 4.4 cm IVSd: 1.2 cm LVOT diam: 2.0 cm LVIDs: 2.3 cm LVPWd: 1.1 cm LVOT area: 3.2 cm2 RVDd: 3.7 cm FS: 48.2 % asc Aorta Diam: 3.5 cm LAV(MOD-sp4): 46.7 ml LVAd ap4: 28.1 cm2 LVLd ap4: 8.2 cm EDV(MOD-sp4): 78.9 ml EDV(sp4-el): 81.9 ml LVAs ap4: 16.5 cm2 LVLs ap4: 6.7 cm ESV(MOD-sp4): 35.5 ml ESV(sp4-el): 34.6 ml EF(MOD-sp4): 55.0 % EF(sp4-el): 57.8 % SV(MOD-sp4): 43.4 ml SV(MOD-sp2): 41.1 ml LVAd ap2: 25.9 cm2 LVLd ap2: 7.8 cm SI(MOD-sp4): 18.9 ml/m2 SI(MOD-sp2): 17.9 ml/m2 EDV(MOD-sp2): 70.5 ml EDV(sp2-el): 73.0 ml LVAs ap2: 16.2 cm2 LVLs ap2: 7.2 cm ESV(MOD-sp2): 29.4 ml ESV(sp2-el): 30.8 ml EF(MOD-sp2): 58.3 % SV(sp4-el): 47.3 ml Ao sinus diam: 3.[address] Junction: 3.0 cm LA A4 area: 18.4 cm2 LA dimension(2D): 3.9 cm RA A4 area: 12.3 cm2 TAPSE: 1.9 cm Time Measurements MV dec time: 0.24 sec Doppler Measurements & Calculations MV E max alex: 74.9 cm/sec Lat Peak E' Alex: 8.2 cm/sec Med Peak E' Alex: 9.6 cm/sec MV A max alex: 83.0 cm/sec E/E' lat: 9.1 E/E' med: 7.8 MV E/A: 0.90 Ao V2 max: 136.7 cm/sec LV V1 max: 114.4 cm/sec MV dec slope: 311.0 cm/sec2 Ao max P.5 mmHg LV V1 max P.2 mmHg Ao V2 mean: 95.3 cm/sec LV V1 mean P.6 mmHg Ao mean P.0 mmHg LV V1 mean: 75.5 cm/sec Ao V2 VTI: 28.7 cm LV V1 VTI: 26.7 cm AV (velocity ratio): 0.93 RAMIREZ(I,D): 3.0 cm2 RAMIREZ(V,D): 2.7 cm2 SV(LVOT): 86.6 ml PA V2 max: 167.9 cm/sec TR max alex: 260.0 cm/sec TR max P.0 mmHg ECHO/Echo Complete Interpretation Summary Normal LV size. Left ventricular systolic function is normal. The left ventricular ejection fraction is 65 %. No pericardial effusion. Ordering Physician: Almaz Valladares Referring Physician: Alfredo Vasquez Performed By: Dilia Recinos RDCS
== END | disposition home or self-care (01) ==
LOC: CVS 08:50
PROVIDERS: PCP Family Medicine; Referring Provider Physician Assistant Medical; Visit Provider Physician Assistant Medical
DX: R06.09 Other forms of dyspnea (principal)
CPT/HCPCS: 93306

== ENCOUNTER → 2024-11-18 | Outpatient (CLI) | payer MEDICARE, OTHER, SELFPAY | END | disposition home or self-care (01) | LOC: PSN 06:59 | PROVIDERS: PCP Family Medicine; Referring Provider Physician Assistant Medical; Visit Provider Physician Assistant Medical | DX: R06.02 Shortness of breath (principal) | CPT/HCPCS: 94060; 94726; 94729 ==

== ENCOUNTER → 2025-01-22 | Outpatient (CLI) | payer MEDICARE, OTHER, SELFPAY ==
--- NOTE | 2025-01-22 11:15 | RAD_ITS ---
PROCEDURE: CHEST PA AND LATERAL REASON FOR EXAM: Shortness of breath and wheezing. TECHNIQUE: Frontal and lateral views of the chest. COMPARISON: Chest x-ray of 11/06/2024 RAD/Chest PA and Lateral IMPRESSION: Partially visualized lower cervical surgery again noted. Moderate left hemidiaphragm elevation is seen, with mild adjacent left basilar atelectasis. Lungs otherwise appear clear of acute disease. No pleural effusion or pneumothorax is noted. The cardiomediastinal silhouette is stable, without evidence of cardiomegaly. 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 Reading Location: [id number]
== END | disposition home or self-care (01) ==
LOC: RAD 11:05
PROVIDERS: PCP Family Medicine; Referring Provider Internal Medicine Pulmonary Disease; Visit Provider Internal Medicine Pulmonary Disease
DX: R06.02 Shortness of breath (principal); R06.2 Wheezing
CPT/HCPCS: 71046

== ENCOUNTER → 2025-01-28 | Outpatient (CLI) | payer MEDICARE, OTHER, SELFPAY ==
--- NOTE | 2025-01-28 13:15 | RAD_ITS ---
PROCEDURE: FLUOROSCOPY 1 HR OR LESS REASON FOR EXAM: Possible left diaphragmatic paralysis. TECHNIQUE: Standing AP view(s) of the thoracic and lumbar spine. COMPARISON: None. FINDINGS: There is elevation of the left hemidiaphragm. Limited movement of the left hemidiaphragm during expiration and inspiration maneuvers. Disc space narrowing and spondylosis of the dorsal spine. RAD/Fluoroscopy 1 Hr or Less IMPRESSION: Elevation of the left hemidiaphragm with limited movement during inspiration ex piration. Reading [facility]
== END | disposition home or self-care (01) ==
LOC: RAD 13:08
PROVIDERS: PCP Family Medicine; Referring Provider Internal Medicine Pulmonary Disease; Visit Provider Internal Medicine Pulmonary Disease
DX: R06.00 Dyspnea, unspecified (principal)
CPT/HCPCS: 76000

== ENCOUNTER → 2025-01-31 | Outpatient (CLI) | payer MEDICARE, OTHER, SELFPAY | END | disposition home or self-care (01) | LOC: MFPLAB 14:37 | PROVIDERS: PCP Family Medicine; Referring Provider Family Medicine; Visit Provider Family Medicine | DX: E04.2 Nontoxic multinodular goiter (principal) | CPT/HCPCS: 36415; 84439; 84443; 84481 ==

== ENCOUNTER → 2025-04-01 | Outpatient (CLI) | payer MEDICARE, OTHER, SELFPAY ==
--- NOTE | 2025-04-01 12:54 | RAD_ITS ---
PROCEDURE: CHEST PA AND LATERAL 04/01/2025 REASON FOR EXAM: SOB TECHNIQUE: Frontal and lateral views of the chest. COMPARISON: 01/22/2025 FINDINGS: Similar appearance of elevated left hemidiaphragm with left base atelectasis again seen. Faint wires are seen left upper quadrant consistent with stimulator/monitor. The lungs otherwise appear clear. Cardiac and mediastinal contours not significantly change with ectatic thoracic aorta again noted. Partially imaged lower cervical fusion hardware and thoracic spine DISH again noted. RAD/Chest PA and Lateral IMPRESSION: No evidence of acute disease as above. Reading Location: [id number]
== END | disposition home or self-care (01) ==
LOC: MTRAD 12:49
PROVIDERS: PCP Family Medicine
DX: R06.02 Shortness of breath (principal)
CPT/HCPCS: 71046

== ENCOUNTER → 2025-04-08 | Outpatient (CLI) | payer MEDICARE, OTHER, SELFPAY ==
--- NOTE | 2025-04-08 09:56 | ECHOCS_ITS ---
Reason For Study Reason For Study: SOB Procedure This was a 2D Doppler, Color Flow transthoracic echocardiogram. Contrast injection was performed. Exam performed in department. Left Ventricle Normal LV size. Left ventricular systolic function is normal. The left ventricular ejection fraction is 65 %. No regional wall motion abnormalities noted. Right Ventricle Normal RV size. Normal systolic function. Atria Normal left atrium. Normal right atrium. Mitral Valve Normal mitral valve. Tricuspid Valve Normal tricuspid valve. Mild (1+) tricuspid valve insufficiency. Pulmonary artery systolic pressure is 32 mmHg. Aortic Valve Trisinus/trileaflet aortic valve. Moderate diffuse aortic valve thickening. Pulmonic Valve Normal pulmonic valve. Great Vessels Normal aortic root. The pulmonary artery is normal size. Normal inferior vena cava. Pericardium/Pleural No pericardial effusion. Medication Diluted definity 1ml given slow IV push to enhance endocardial definition. MMode/2D Measurements & Calculations LVIDd: 4.1 cm IVSd: 0.91 cm Ao root diam: 3.5 cm LVIDs: 2.1 cm LVPWd: 0.88 cm RVDd: 4.6 cm FS: 48.2 % LAV(MOD-bp): 34.4 ml LVAd ap4: 29.4 cm2 SV(MOD-sp4): 56.5 ml LAV(MOD-bp) Indexed: 15.2 ml/m2 LVLd ap4: 7.9 cm SI(MOD-sp4): 25.0 ml/m2 LAV(MOD-sp2): 37.3 ml EDV(MOD-sp4): 91.1 ml LAV(MOD-sp4): 29.0 ml EDV(sp4-el): 92.6 ml LVAs ap4: 16.1 cm2 LVLs ap4: 6.3 cm ESV(MOD-sp4): 34.6 ml ESV(sp4-el): 34.5 ml EF(MOD-sp4): 62.0 % EF(sp4-el): 62.7 % SV(sp4-el): 58.1 ml LA A4 area: 14.3 cm2 LA dimension(2D): 3.9 cm RA A4 area: 12.2 cm2 TAPSE: 1.5 cm Time Measurements MV dec time: 0.28 sec Doppler Measurements & Calculations MV E max alex: 67.9 cm/sec Lat Peak E' Alex: 9.4 cm/sec Med Peak E' Alex: 7.6 cm/sec MV A max alex: 88.6 cm/sec E/E' lat: 7.2 E/E' med: 8.9 MV E/A: 0.77 MV dec slope: 245.0 cm/sec2 Ao V2 max: 121.0 cm/sec LV V1 max: 95.1 cm/sec Ao max P.9 mmHg LV V1 max P.6 mmHg Ao V2 mean: 84.3 cm/sec Ao mean P.2 mmHg Ao V2 VTI: 24.1 cm PA V2 max: 132.5 cm/sec PI end-d alex: 108.2 cm/sec TR max alex: 269.6 cm/sec TR max P.1 mmHg ECHO/Echo Complete W/ Contrast Interpretation Summary Normal LV size. Left ventricular systolic function is normal. The left ventricular ejection fraction is 65 %. Pulmonary artery systolic pressure is 32 mmHg. Contrast injection was performed. Ordering Physician: Jackson Blake Referring Physician: Alfredo Vasquez Performed By: Valentina Bejnamin RDCS, RVT
== END | disposition home or self-care (01) ==
LOC: CVS 09:56
PROVIDERS: PCP Family Medicine
DX: R06.02 Shortness of breath (principal)
CPT/HCPCS: 93306; Q9957; A4216; C8929

== ENCOUNTER → 2025-04-24 | Outpatient (CLI) | payer MEDICARE, OTHER, SELFPAY ==
[2025-04-24 18:07] LABS: Anion Gap 11 (5-15); BUN 22 mg/dL (4-19); BUN/Creat Ratio 21.8 RATIO (10-20); Calcium,Total 9.6 mg/dL (7.6-11.0); Carbon Dioxide 24.6 mmol/L (21.0-32.0); Chloride 106 mmol/L (98-108); Creatinine, Serum 1.02 mg/dL (0.70-1.20); EST Glomerular Filtration Rate 76 (>60); Glucose 107 mg/dL (70-99); Potassium 4.2 mmol/L (3.3-5.1); Sodium Level 142 mmol/L (133-145)
[2025-04-24 18:17] LABS: Hematocrit 47.1 % (40-54); Hemoglobin 15.5 g/dL (13.0-16.5); Mean Corp Hgb Conc 32.9 g/dL (32-36); Mean Corpuscular Hgb 31.3 pg (27.0-32.0); Mean Platelet Vol. 10.5 fl (6.2-12.0); Platelet Count 224 K/mm3 (150-450); RBC Distribution Width CV 12.5 % (11.6-14.6); RBC Distribution Width SD 43.3 fl (35.1-43.9); Red Blood Count 4.96 M/mm3 (4.6-6.2); White Blood Count 6.4 K/mm3 (4.4-11.0)
== END | disposition home or self-care (01) ==
PROVIDERS: PCP Family Medicine
DX: I31.1 Chronic constrictive pericarditis (principal)
CPT/HCPCS: 36415; 80048; 85027

== ENCOUNTER → 2025-05-08 | Outpatient (CLI) | payer MEDICARE, OTHER, SELFPAY ==
[2025-05-08 17:54] LABS: ALB/GLOB Ratio 1.6 RATIO (0.9-2.4); AST(SGOT) 27 U/L (<=37); Alanine Aminotransfer ALT/SGPT 24 U/L (<=46); Albumin, Serum 4.2 g/dL (3.4-4.8); Alkaline Phosphatase 110 U/L (40-129); Anion Gap 11 (5-15); BUN 24 mg/dL (4-19); BUN/Creat Ratio 24.7 RATIO (10-20); Calcium,Total 9.9 mg/dL (7.6-11.0); Carbon Dioxide 25.2 mmol/L (21.0-32.0); Chloride 104 mmol/L (98-108); Cholesterol 177 mg/dL (<=200); Creatinine, Serum 0.99 mg/dL (0.70-1.20); EST Glomerular Filtration Rate 79 (>60); Globulin 2.7 g/dL (2.2-4.2); Glucose 91 mg/dL (70-99); High Density Lipoprotein 40 mg/dL; Low Density Lipoprotein Calc. 76 mg/dL; PSA,Total- Diagnostic 2.24 ng/mL (0.00-4.00); Potassium 4.3 mmol/L (3.3-5.1); Protein, Total 6.8 g/dL (5.9-8.4); Sodium Level 141 mmol/L (133-145); Total Bilirubin 0.38 mg/dL (0.00-1.30); Triglycerides 303 mg/dL; Very Low Density Lipoprotein 61 mg/dL (5-40); cholesterol:hdl ratio screen 4.39
== END | disposition home or self-care (01) ==
LOC: MFPLAB 15:56
PROVIDERS: PCP Family Medicine; Referring Provider Family Medicine; Visit Provider Family Medicine
DX: E78.5 Hyperlipidemia, unspecified (principal); N40.0 Benign prostatic hyperplasia without lower urinary tract symptoms
CPT/HCPCS: 36415; 80053; 80061; 84153

== ENCOUNTER 2025-06-20 18:51 | Emergency (ER) | payer MEDICARE, OTHER, SELFPAY ==
[2025-06-20] VITALS (7 sets, daily range): BP systolic 111–150; BP diastolic 55–66; PULSE 62–80; RESP 16–18; TEMP 36.9–37.1; O2SAT 96–100; BMI 31.5
--- NOTE | 2025-06-20 19:00 | EKG12_ITS ---
Test Reason : DYSRHYTHMIA Blood Pressure : */* mmHG Vent. 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
--- NOTE | 2025-06-20 19:24 | EDS_ITS ---
HPI History of Present Illness Chief Complaint: Weakness Detail of Chief Complaint: Dyspnea and chills Informant: patient Narrative Narrative: Patient presents the emergency room with complaint of some chills that started this afternoon. He states he felt a little more short of breath than usual. He denies fever although he felt hot. Currently feels like he is mostly back to baseline. 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 He normally wears home O2. Denies urinary symptoms. 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 Areas been red for months. Mild drainage. [facility] Medical History Coronary artery disease Pericardial effusion without cardiac tamponade Pericarditis Hypercholesterolemia Hypertension Elevated troponin Non-ST elevation NV (NSTEMI) Myocarditis Pericarditis Acute pericardial effusion Chest pain CKD (chronic kidney disease), stage II Obesity History of nephrolithiasis Anxiety and depression Home Medications ?Medication ?Instructions ?Recorded ?Last Taken ?Type aspirin 81 mg chewable tablet 81 mg PO DAILY@0800 bloo d thinner 11/29/16 07/24/17 History lisinopril 20 mg tablet 20 mg PO DAILY HTN 12/06/16 Unknown History simvastatin 40 mg tablet 40 mg PO QHS HLD 12/06/16 Un known History magnesium oxide 250 mg PO DAILY supplement 0 08/03/24 Unknown History multivitamin (Daily Multi-Vitamin 1 tab PO DAILY suppl ement 08/03/24 Unknown History tablet) coQ10 (ubiquinol) 100 mg capsule 200 mg PO QDAY Unknown History (Qunol Justin CoQ10) colchicine 0.6 mg tablet 0.6 mg PO QDAY #90 tabs 07/22 03/13 Unknown Rx sertraline 100 mg tablet 100 mg PO DAILY . 03/21/25 U nknown History amlodipine 5 mg tablet 5 mg PO DAILY #90 tabs 05/07 Unknown Rx Allergy/AdvReac Type Severity Reaction Status Date / Time No Known Allergies Allergy Verified 06/20/25 19:37 Family History Mother Heart disease Hypertension Father Prostate cancer Surgical History History of surgery S/P cholecystectomy History of cochlear implant S/P ureteral stent placement Social History household members: spouse Smoking Status: Never smoker alcohol intake: never substance use type: does not use ROS ROS ED Review of Systems ROS Unobtainable: other Constitutional Constitutional ED: Reports chills and lethargy; Denies fever(s), sweats or weight loss Eyes Eyes: Denies blurry vision, change in vision or diplopia ENT ENT ED: Denies rhinorrhea or sore throat Cardiovascular Cardiovascular: Denies chest pain, orthopnea or racing heartbeat Respiratory/Chest Respiratory/Chest: Reports dyspnea; Denies cough, dyspnea on exertion, orthopnea or sputum Gastrointestinal Gastrointestinal: Denies abdominal pain, diarrhea, nausea or vomiting Genitourinary Genitourinary ED: Denies dysuria, hematuria or urinary frequency Musculoskeletal Musculoskeletal: Denies arthralgias, back pain, myalgias or neck pain Integumentary Denies abscess, Abrasions or rash Neurologic Neurologic: Denies headache(s) or weakness Psychiatric Psychiatric: Denies anxiety, depression or suicidal thoughts Endocrine Endocrinology: Denies polydipsia, polyphagia or polyuria Hematologic/Lymphatic Hematologic/Lymphatic: Denies easy bleeding, easy bruising or lymphadenopathy Allergic/Immunologic Allergic/Immunologic ED: Denies mouth swelling, tongue swelling or urticaria EXAM Physical Exam Const Vital Signs: 06/20/25 18:52 06/20/25 19:00 06/20/25 19:02 Temperature 98.7 F 98.7 F Temperature Source Oral Oral Pulse Rate 78 78 Respiratory Rate 16 16 Respiratory Pattern Normal Blood Pressure 141/63 H 141/63 H Blood Pressure Mean 89 89 Pulse Ox 96 96 Oxygen Delivery Method Nasal Cannula Nasal Cannula Oxygen Flow Rate (L/min) 3 3 06/20/25 19:51 06/20/25 20:00 06/20/25 21:00 Temperature 98.8 F 98.5 F Temperature Source Oral Oral Pulse Rate 80 62 64 Respiratory Rate 18 18 18 Respiratory Pattern Blood Pressure 111/55 L 148/66 H 126/61 H Blood Pressure Mean 73 93 82 Pulse Ox 97 98 98 Oxygen Delivery Method Nasal Cannula Nasal Cannula Nasal Cannula Oxygen Flow Rate (L/min) 3 3 3 Positive well nourished and well developed General Appearance ED: well developed and NAD HEENT Reports TM's clear and moist mucous membranes normocephalic and atraumatic; Negative for trauma or tenderness Tympanic Membrane ED: Yes TM's clear Eyes PERRL and EOMs intact bilaterally General Eye ED: Negative for pale conjunctiva or scleral icterus Neck no lymphadenopathy, supple and no JVD General: Negative for tenderness Chest Wall inspection of chest normal and palpation of chest normal Chest: Negative for tenderness Resp normal respiratory effort and clear to auscultation bilaterally Effort and Inspection: Negative for respiratory distress or pain with movement Auscultation: Negative for rhonchi, wheezes or diminished lung sounds Cardio regular rate, regular rhythm, S1 normal heart sound, S2 normal heart sound and no murmurs Peripheral Pulses: pulses 2+ throughout GI normal to inspection, nondistended, normoactive bowel sounds, soft to palpation, non-distended and no masses GI Narrative: Mild diffuse erythema surrounding the pacemaker insertion site in his right upper abdomen. No significant drainage. No significant tenderness on exam. Back/Spine no CVA tenderness and no thoracic nor lumbar tenderness Extremity normal to inspection General Extremety ED: Negative for edema General Extremity: Negative for edema Neuro oriented x3, CN's II-XII intact bilaterally, no sensory deficits noted and gait normal Sensorium / Orientation: awake, alert, oriented to person, oriented to place and oriented to time Motor Exam: strength 5/5 throughout and strength abnormal Psych mental status grossly normal Skin no rashes or lesions noted and no wounds MDM MDM MDM Narrative Medical decision making narrative: Patient presents to the emergency department with some mild dyspnea and chills. Symptoms started after taking Bactrim for the first time. He states has not had it before but his sons had an allergic reaction to in the past. Patient clinically looks well. Wears O2 as needed typically. In the differential would be infectious etiology. Versus drug reaction. IV line established. CBC with differential obtained showed white count of 9.7 with hemoglobin 15.8 and platelet count of 219 chemistries unremarkable. Urinalysis was normal. Chest x-ray without signs of infection. CT scan of the abdomen pelvis was unremarkable. Patient does have an area of erythema around his diaphragm stimulator and this is unclear if this is truly cellulitic versus just irritation. Patient was advised to continue with his Bactrim as it is unclear if that was the cause of his symptoms which I feel is unlikely. It is possible he may be coming down with a viral syndrome. This point he looks well and will discharge to home and advised to follow-up with his primary care physician within next 3 to 5 days. Lab Data Attestation: I reviewed the patient's lab results. Labs: Laboratory Results - last 24 hr 06/20/25 06/20/25 19:07 19:55 WBC 9.7 RBC 5.11 Hgb 15.8 Hct 46.2 MCV 90.4 MCH 30.9 MCHC 34.2 RDW Std Deviation 40.9 RDW Coeff of Jacob 12.5 Plt Count 219 MPV 10.1 Immature Gran % (Auto) 0.400 Neut % (Auto) 87.9 H Lymph % (Auto) 4.[address] [place] % (Auto) 5.2 Eos % (Auto) 1.9 Baso % (Auto) 0.1 Absolute Neuts (auto) 8.5 H Absolute Lymphs (auto) 0.43 L Nucleated RBC % 0 Sodium 139 Potassium 3.9 Chloride 105 Carbon Dioxide 20.8 L Anion Gap 14 BUN 24 H Creatinine 1.03 Estim Creat Clear Calc 76.30 Est GFR (MDRD) Non-Af 74 BUN/Creatinine Ratio 23.3 H Glucose 113 H Lactic Acid 1.8 Calcium 9.7 Urine Color Yellow Urine Clarity Clear Urine pH 6.0 Ur Specific [place] 1.015 Urine Protein 30 H Urine Glucose (UA) Normal Urine Ketones Negative Urine Occult Blood 10 H Urine Nitrite Negative Urine Bilirubin Negative Urine Urobilinogen Normal Ur Leukocyte Esterase Negative Urine RBC 0-5 SEEN Urine WBC 0-5 SEEN Ur Squamous Epith Cells 0 SEEN Urine Bacteria 0 SEEN Urine Mucus 0 SEEN Radiography Diagnostic Testing: Clinical Impression(s) from Imaging Studies Chest X-Ray 06/20/25 19:35 IMPRESSION: Cardiomegaly. Elevated left hemidiaphragm with left basilar atelectasis. This can be seen with hemiparesis of the diaphragm. Reading Location: [facility] Abdomen/Pelvis CT 06/20/25 20:09 IMPRESSION: No suspicious solid organ abnormality, simple hepatic and renal cysts, no specific follow-up needed. Small-bowel ileus Enlarged prostate impinging upon the inferior aspect of the bladder may be causing bladder outlet issues Scattered colonic diverticula, no CT evidence of acute diverticulitis. No free intraperitoneal fluid, air, or suspicious adenopathy. Normal appendix visualized Reading Location: [facility] 1 view chest x-ray obtained interpreted by myself is elevated left hemidiaphragm. No acute findings otherwise of infiltrate or pneumothorax or other acute process. Radiology in agreement. EKG Initial EKG: Attestation: I personally reviewed and interpreted this EKG as follows: Comments: Sinus rhythm with a ventricular rate of 90 bpm with occasional PACs Discharge Plan Triage Chief Complaint: Weakness ED Provider: Dat Peoples Dx/Rx/DC Orders Clinical Impression: Weakness, Dyspnea, Chills Instructions: ED Dyspnea, ED Weakness Uncertain Cause Prescriptions: No Action coQ10 (ubiquinol) [Qunol Justin CoQ10] 100 mg capsule 200 mg PO QDAY colchicine 0.6 mg tablet 0.6 mg PO QDAY Qty: 90 1RF aspirin 81 MG tablet,chewable 81 mg PO DAILY@0800 lisinopril 20 MG tablet 20 mg PO DAILY simvastatin 40 MG tablet 40 mg PO QHS magnesium oxide 250 mg magnesium tablet 250 mg PO DAILY multivitamin [Daily Multi-Vitamin] Tablet 1 tab PO DAILY sertraline 100 mg tablet 100 mg PO DAILY amlodipine 5 mg tablet 5 mg PO DAILY Qty: 90 3RF Primary Care Provider: Alfredo Vasquez Referrals: Alfredo Vasquez MD [Primary Care Provider] - 3-5 Days Print Language: Colombian Disposition Disposition: Home, Self Care
[2025-06-20 19:32] LABS: Hematocrit 46.2 % (40-54); Hemoglobin 15.8 g/dL (13.0-16.5); Immature Granulocytes Count 0.040 X10^3/uL (0.0-0.0); Mean Corp Hgb Conc 34.2 g/dL (32-36); Mean Corpuscular Volume 90.4 fL (80-94); Mean Platelet Vol. 10.1 fl (6.2-12.0); NRBC Flagged by Analyzer 0 % (0-5); POSITIVE DIFFERENTIAL YES; Platelet Count 219 K/mm3 (150-450); RBC Distribution Width CV 12.5 % (11.6-14.6); RBC Distribution Width SD 40.9 fl (35.1-43.9); Red Blood Count 5.11 M/mm3 (4.6-6.2); White Blood Count 9.7 K/mm3 (4.4-11.0)
--- NOTE | 2025-06-20 19:35 | RAD_ITS ---
PROCEDURE: CHEST 1 VIEW (PORTABLE) 06/20/2025 REASON FOR EXAM: DYSPNEA TECHNIQUE: Frontal view of the chest. COMPARISON: 04/01/2025 FINDINGS: Lungs/Pleura: Elevated left hemidiaphragm with overlying left basilar atelectasis. No definite focal consolidation, pneumothorax, or sizable pleural effusion. Heart/Mediastinum: Mild cardiomegaly. Bones/Soft tissues: Degenerative changes of the spine. Cervical ACDF hardware. RAD/Chest 1 View (Portable) IMPRESSION: Cardiomegaly. Elevated left hemidiaphragm with left basilar atelectasis. This can be seen with hemiparesis of the diaphragm. Reading Location: [id number]
[2025-06-20] MEDS: 0.9% Normal Saline (1000mL) 1,000 ML 150 ML IV (19:45)
--- OUTSIDE RECORDS SUMMARY | 2025-06-20 19:46 | XMS RPT_ITS | CCD ---
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 Name Role Phone MISSIOS, SYMEON Unavailable Unavailable MISSIOS, SYMEON Unavailable Unavailable MISSIOS, SYMEON Unavailable Unavailable MISSIOS, SYMEON Unavailable Unavailable MISSIOS, SYMEON Unavailable Unavailable NO REFERRING DR Unavailable Unavailable MISSIOS, SYMEON Unavailable Unavailable Masters, Emigdio Luciano Unavailable Unavailabl e Wilhelm, Alberto Jorge Luis Unavailable Unavailable Masters, Emigdio Luciano Unavailable Unavailabl e Wilhelm, Alberto Jorge Luis Unavailable Unavailable Masters, Emigdio Luciano Unavailable Unavailabl e Wilhelm, Alberto Jorge Luis Unavailable Unavailable Masters, Emigdio Luciano Unavailable Unavailabl e Wilhelm, Alberto Jorge Luis Unavailable Unavailable Masters, Emigdio Luciano Unavailable Unavailabl e Wilhelm, Alberto Jorge Luis Unavailable Unavailable Wilhelm DO, Scot D Unavailable Unavailable Unavailable Renetta, Mr. Aden Ravi Attending Unava ilable Alberto Wilhelm Primary Care Unavailable MD DEVON DIAS Referring UnaDevon Guzman Attending Unavailable Alberto Wilhelm Primary Care Unavailable Devon Dias Attending Unavailable Alberto Wilhelm Primary Care Unavailable Unavailable Primary Care Provider Unavailabl e REFERRING, PHY WO ID Primary Care Unavailable DEVON DIAS MD Attending Unavailable Alfredo Vasquez MD Primary Care Provider OHR, MASSIMO Wharton Attending Unavailable SIERRA DAVIDSON Referring Unavailable ALFREDO VASQUEZ Primary Care Unavailable OHR, MASSIMO Wharton Attending Unavailable OHR, MASSIMO Wharton Admitting Unavailable ALFREDO VASQUEZ Primary Care Unavailable OHR, MASSIMO Wharton Attending Unavailable ALFREDO VASQUEZ Primary Care Unavailable SELF, SELF Referring Unavailable OHR, MASSIMO Wharton Attending Unavailable ALFREDO VASQUEZ Primary Care Unavailable SELF, SELF Referring Unavailable OHR, MASSIMO Wharton Attending Unavailable OHR, MASSIMO P Referring Unavailable ALFREDO VASQUEZ Primary Care Unavailable OHR, MASSIMO Wharton Referring Unavailable TERRIE, ASIYA Attending Unavailable ALFREDO VASQUEZ Primary Care Unavailable ARUNDEVON Attending Unavailable DEVON DIAS Attending Unavailable DEVON DIAS Attending Unavailable DEVON DIAS Attending Unavailable Alfredo Vasquez MD Primary Care Provider [phone] Christina GAITAN, Dr. Fuentes Primary Care Provider Dr. Alfredo Vasquez MD Attending Provider Christina GAITAN, Dr. Fuentes Referring Provider Almaz Hillman Attending Provider Almaz Hillman Referring Provider Junito GAITAN, Dr. Jacobsen Attending Provider Junito GAITAN, Dr. Jacobsen Emergency Provider Saira GAITAN, Dr. Haines Attending Provider Liz GAITAN, Dr. Lm Ortega Attending Provider Liz GAITAN, Dr. Lm Ortega Referring Provider SAJAN, SARAHI Referring Unavailable VASQUEZALFREDO GUPTA Primary Care Unavailable SAJAN, SARAHI Referring Unavailable VASQUEZALFREDO GUPTA Primary Care Unavailable ONDERSELIZABETH P Admitting Unavailable ONDERSELIZABETH P Attending Unavailable VASQUEZALFREDO GUPTA Primary Care Unavailable OSVALDO, CORRIE E Attending Unavailable VASQUEZALFREDO GUPTA Primary Care Unavailable OSVALDO, CORRIE E Attending Unavailable ALFREDO VASQUEZ Primary Care Unavailable SAJAN, SARAHI Attending Unavailable VASQUEZALFREDO GUPTA Primary Care Unavailable SAJAN, SARAHI Attending Unavailable ALFREDO VASQUEZ Primary Care Unavailable Dr. Alfredo Vasquez MD Primary Care Provider Christina GAITAN, Dr. Fuentes Attending Provider Christina GAITAN, Dr. Fuentes Referring Provider Dr. Jana Blake MD Attending Provider Paulina INSURANCE VERIFICATION CLERK-CSonny Attending Provider Lashasabine passbaldemar INSURANCE VERIFICATION CLERK-CSonny Referring Provider Saira GAITAN, Dr. Haines Attending Provider Unavailable Primary Care Provider Unavailkevan e SERGIO PINO THOMAS Attending Provider [phone] SERGIO PINO Attending Unavailable JANA BLAKE Referring Unavailable SERGIO PINO Admitting Unavailable SERGIO PINO Attending Unavailable Vasquez, Alfredo Primary Care Unavailable Almaz Hillman Referring Unavail able Almaz Hillman Attending Unavail able VasquezAlfredo gupta Referring Unavailable Vasquez, Alfredo Attending Unavailable Vasquez, Alfredo Primary Care Unavailable GREGORY WAYNE Attending Unavailable Vasquez, Alfredo Primary Care Unavailable McMorrow INSURANCE VERIFICATION CLERK, Sonny Attending Unavailable McMorrow INSURANCE VERIFICATION CLERK, Sonny Referring Unavailable Vasquez, Alfredo Primary Care Unavailable Vasquez, Alfredo Primary Care Unavailable Vasquez, Alfredo Attending Unavailable Christina, Alfredo Referring Unavailable Vasquez, Alfredo Primary Care Unavailable Almaz Hillman Referring Unavail able Almaz Hillmna Attending Unavail able McMorrow INSURANCE VERIFICATION CLERK, Sonny Attending Unavailable McMorrow INSURANCE VERIFICATION CLERK, Sonny Referring Unavailable Vasquez, Alfredo Primary Care Unavailable Rafia Smiley Attending Unavailable Anna Wallis Admitting Unavailable Jian Olivas Consulting Unavailable Christina, Alfredo Primary Care Unavailable Anna Wallis Consulting Unavailable Jana Blake Attending Unavailable Alfredo Vasquez Referring Unavailable Vasquez, Alfredo Primary Care Unavailable Jana Blake Attending Unavailable Alfredo Vasquez Referring Unavailable Vasquez, Alfredo Primary Care Unavailable Vasquez, Alfredo Primary Care Unavailable Christina, Alfredo Attending Unavailable Alfredo Vasquez Referring Unavailable SibLm ward V Attending Unavailable Sibilia, Lm V Referring Unavailable Vasquez, Alfredo Primary Care Unavailable Sibsylvia, Lm Ortega Attending Unavailable Sibsylvia, Lm V Referring Unavailable Vasquez, Alfredo Primary Care Unavailable Almaz Hillman Referring Unavail able Almaz Hillman Attending Unavail able Vasquez, Alfredo Primary Care Unavailable Delmar Wild Attending Unavailable Vasquez, Alfredo Primary Care Unavailable Vasquez, Alfredo Referring Unavailable Vasquez, Alfredo Attending Unavailable Vasquez, Alfredo Primary Care Unavailable Vasquez, Alfredo Attending Unavailable Vasquez, Alfredo Primary Care Unavailable Chip Hancock Attending Unavailable Almaz Hillman Referring Unavail able Vasquez, Alfredo Primary Care Unavailable Vi Carcamo Attending Unavailabl e Alfredo Vasquez Referring Unavailable Vasquez, Alfredo Primary Care Unavailable Jana Blake Attending Unavailable Christina, Alfredo Primary Care Unavailable Vasquez, Alfredo Referring Unavailable Te Bill Admitting Unavailable Jana Blake Attending Unavailable Jana Blake Consulting Unavailable Vasquez, Alfredo Primary Care Unavailable Jopperi, Te Consulting Unavailable Jopperi, Te Admitting Unavailable Hayden, Jana Consulting Unavailable Koram, Rafia Radha Attending Unavailable Vasquez, Alfredo Primary Care Unavailable Jopperi, Te Consulting Unavailable Vasquez, Alfredo Primary Care Unavailable Almaz Hillman Attending Unavail able Vasquez, Alfredo Referring Unavailable Hayden, Jana Attending Unavailable Hayden, Jana Referring Unavailable Vasquez, Alfredo Primary Care Unavailable Vasquez, Alfredo Referring Unavailable Vasquez, Alfredo Primary Care Unavailable Simona Whiting Attending Unavailable Vasquez, Alfredo Primary Care Unavailable Saira, [place] Attending Unavailable Brendon, Jian Attending Unavailable Vasquez, Alfredo Primary Care Unavailable Dona, Franciaadee Attending Unavailabl e Vasquez, Alfredo Primary Care Unavailable Saira, [place] Attending Unavailable Vasquez, Alfredo Primary Care Unavailable Dona, Franciaadee Attending Unavailabl e Vasquez, Alfredo Referring Unavailable Vasquez, Alfredo Consulting Unavailable Vasquez, Alfredo Primary Care Unavailable Koram, Rafia Radha Attending Unavailable White, Anna L Admitting Unavailable Brendon, Jian Consulting Unavailable Vasquez, Alfredo Primary Care Unavailable White, Anna L Consulting Unavailable Koram, Rafia Radha Consulting Unavailable Brendon, Jian Attending Unavailable White, Anna L Consulting Unavailable White, Anna L Attending Unavailable White, Anna L Admitting Unavailable Vasquez, Alfredo Primary Care Unavailable Koram, Rafia Radha Attending Unavailable Koram, Rafia Radha Consulting Unavailable Jopperi, Te Attending Unavailable Vasquez, Alfredo Primary Care Unavailable Saira, Zaki Attending Unavailable Jopperi, Te Attending Unavailable Jopperi, Te Admitting Unavailable Jana Blake Consulting Unavailable Vasquez, Alfredo Primary Care Unavailable Jopperi, Te Consulting Unavailable Hayden, Jana Attending Unavailable Allergies Allergy Classification Reported Allergen(s) Allergy Type Date of Onset Reaction(s) Facility (1 source) NO KNOWN ALLERGIES; Translations: [NO KNOWN ALLERGIES] Propensity to adverse reactions (disorder) [facility] Rep[facility] (1 source) NKA; Translations: [NKA] Propensity to adverse reactions (disorder) [facility] (13 sources) Metoprolol; Translations: [METOPROLOL SUCCINATE] Drug Allergy 2 [facility] (13 sources) topiramate; Translations: [TOPIRAMATE] Drug Allergy [address] [facility] Work Phone: (10 sources) Topiramate Propensity to adverse reactions to drug 2 Other [facility] (5 sources) Metoprolol Drug Allergy 2 Dizziness [facility] Medications Current Medications Medication Drug Class(es) Dates Sig (Normalized) Sig (Original) Acetaminophen (2 sources) Start: 02-19-2025 take 1 tablet by mouth every six hours acetaminophen (Tylenol) tablet 650 mg Start: 03-25-2024 End: 03-25-2024 take 1 tablet by mouth every four hours as needed 650 mg, Oral, EVERY 4 HOURS NEEDED, Starting on Mon03/25/24 at 0946, Until Mon03/25/24 at 1216, Mild Pain, Maximum dose of acetaminophen is 4000 mg from all sources in 24 hours., Post-op/Post-Proc amLODIPine 5 mg oral tablet (20 sources) Dihydropyridine Calcium Channel Tracey Start: 08-08-2024 End: 05-07-2025 take 1 tablet by mouth once daily Amlodipine 5 mg tablet Active 5 mg PO DAILY 90 May 07, 2025 12:59pm aspirin 81 mg chewable tablet (20 sources) Platelet Aggregation Inhibitor, Nonsteroidal Anti-inflammatory Drug Start: 11-29-2016 take 1 tablet by mouth once daily Aspirin 81 MG tablet,chewable Active 81 mg PO DAILY@0800 November 29, 2016 1:00am Start: 03-13-2006 aspirin 81 mg EC tablet Take by mouth once daily. 03/13/2006 Active Aspirin 81 MG TA BS Quantity: 0 Refills: 0 Ordered: 03-Apr-2018 DO Active B Complex-C (b complex-vitamin c) tablet (5 sources) take 1 tablet by mouth once daily in the morning B Complex-C (b complex-vitamin c) tablet Take 1 tablet by mouth every morning. Active colchicine 0.6 mg oral tablet (20 sources) Start: 08-13-2024 End: 08-13-2024 take 1 tablet by mouth once daily colchicine 0.6 MG tablet Take 0.6 mg by mouth daily. 11/20/2024 Active Start: 08-05-2024 End: 08-13-2024 take 1 capsule by mouth twice daily Colchicine 0.6 mg Capsule Discontinued 0.6 mg PO TWICE A DAY 360 180 August 05, 2024 12:00am August 13, 2024 3:08pm docusate sodium 100 mg oral capsule (7 sources) Start: 02-20-2025 take 1 capsule by mouth twice daily Docusate Sodium (DSS) 100 MG capsule Take 100 mg by mouth twice a day. 02/20/2025 Active 0.4 ml enoxaparin sodium 100 mg/ml prefilled syringe (1 source) Low Molecular Weight Heparin Start: 02-19-2025 inject 40 mg by subcutaneous injection every twenty-four hours 40 mg, subcutaneous, Every 24 hours, First dose on Mon02/19/25 at 2100, Phase II/On Unit, Indications: deep vein thrombosis prevention lidocaine 0.04 mg/mg medicated patch (1 source) Antiarrhythmic, Amide Local Anesthetic Start: 02-19-2025 apply 1 dose transdermal route once daily 1 patch, transdermal, Administer over 12 Hours, Daily, First dose on Mon02/19/25 at 1500, Phase II/On Unit, Apply to Abdomen. Patch will remain on for 12 hours, then removed for [address] patch directly over any surgical incisions or wounds. lisinopril 20 mg oral tablet (20 sources) Angiotensin Converting Enzyme Inhibitor Start: 12-06-2016 take 1 tablet by mouth once daily Lisinopril 20 MG tablet Active 20 mg PO DAILY December 06, 2016 1:00am Lisinopril 20 MG Oral Tablet Quantity: 0 Refills: 0 Ordered: 03-Apr-2018 DO Active magnesium oxide 250 mg oral tablet (18 sources) Start: 08-03-2024 take 1 tablet by mouth once daily Magnesium Oxide 250 mg magnesium tablet Active 250 mg PO DAILY August 03, 2024 12:00am take 1 tablet by mouth once gualberto y magnesium oxide (Mag-Ox) 400 mg (241.3 mg magnesium) tablet Take 1 tablet (400 mg) by mouth once daily. Active methocarbamol 500 mg oral tablet (2 sources) Muscle Relaxant Start: 02-19-2025 take 500 mg by mouth every eight hours 500 mg, oral, Every 8 hours scheduled, First dose on Mon02/19/25 at 1500, Phase II/On Unit Start: 02-19-2025 End: 02-19-2025 1,000 mg, intravenous, Admin ister over 4 Minutes, Once, On Mon02/19/25 at 1215, For 1 dose, Recovery (only) Multiple Vitamin (Multi-Vitamin) tablet (5 sources) take 1 tablet by mouth once daily at dinner Multiple Vitamin (Multi-Vitamin) tablet Take 1 tablet by mouth Daily (with dinner). Active Multivitamin (Daily Multi-Vitamin) tablet (7 sources) Start: 08-03-2024 Multivitamin (Daily Multi-Vitamin) tablet Active 1 {tbl} PO DAILY August 03, 2024 12:00am multivitamin tablet (10 sources) take 1 tablet by mouth once daily multivitamin tablet Take 1 tablet by mouth once daily. Active take 1 tablet by mouth once gualberto y multivitamin tablet Take 1 tablet by mouth once daily. 0 Active ofloxacin 3 mg/ml ophthalmic solution (4 sources) Quinolone Antimicrobial Start: 03-25-2024 take 1 drop(s) into the eye(s) four times daily ofloxacin (Ocuflox) 0.3 % ophthalmic solution Place 1 drop in right eye 4 times daily. 5 mL 03/25/2024 Active oxyCODONE hydrochloride 5 mg oral tablet (4 sources) Opioid Agonist Start: 02-20-2025 take 1 tablet by mouth every six hours in the morning for pain oxyCODONE (Roxicodone) 5 mg immediate release tablet Indications: Acute post-operative pain Take 1 tablet (5 mg) by mouth every 6 hours if needed for severe pain (7 - 10). 4 tablet 02/20/2025 9:45 AM EDT 02/20/2025 Active Start: 02-19-2025 take 1 tablet by nat every six hours as needed 5 mg, oral, Every 6 hours PRN, pain severe (7-10), first line, Starting on Mon02/19/25 at 1440, Phase II/On Unit Start: 02-19-2025 End: 02-19-2025 take 1 tablet by mouth every four hours as needed 5 mg, oral, Every 4 hours PRN, pain mild (1-3), first line, Starting on Mon02/19/25 at 1157, Recovery (only), When able to take oral medications., If ordered PRN for pain, nurse is permitted to administer this medication for higher pain scores based on patient preference? Yes polyethylene glycol 3350 [id number] mg powder for oral solution (1 source) Osmotic Laxative Start: 02-19-2025 17 g, oral, D benita, First dose on Mon02/19/25 at 1500, Phase II/On Unit, Bowel Regimen - for prevention of constipation. prednisoLONE acetate 10 mg/ml ophthalmic suspension (4 sources) Corticosteroid Start: 03-25-2024 take 1 drop(s) into the eye(s) four times daily prednisoLONE acetate 1 % Suspension ophthalmic suspension Place 1 drop in right eye 4 times daily. 5 mL 03/25/2024 Active RIBOFLAVIN, VITAMIN B2, ORAL (9 sources) take 1 tablet by mouth once daily RIBOFLAVIN, VITAMIN B2, ORAL Take 1 tablet by mouth once daily. Active RIBOFLAVIN, FLORECITA MIN B2, ORAL Take by mouth. Active sertraline 100 mg oral tablet (20 sources) Serotonin Reuptake Inhibitor Start: 03-21-2025 take 1 tablet by mouth once daily Sertraline 100 mg tablet Active 100 mg PO DAILY March 21, 2025 8:04am Start: 08-03-2024 End: 03-21-2025 take 2 tablets by mouth once daily Sertraline 100 mg tablet Discontinued 200 mg PO DAILY August 03, 2024 12:00am March 21, 2025 8:05am Start: 03-02-2024 End: 07-31-2025 take 1.5 tablets by mouth once daily sertraline (Zoloft) 100 mg tablet Indications: Dizziness and giddiness Take 1.5 tablets (150 mg) by mouth once daily. 45 tablet 2 06/07/2024 07/30/2024 Discontinued (Reorder) Start: 10-26-2023 End: 10-29-2024 sertraline (Zoloft) 100 mg t ablet Indications: Dizziness and giddiness Take 1 tablet (100 mg) by mouth once daily for 14 days. TAKE 0.5 TABLETS (50MG) X 1 WEEK, THEN TAKE 1 TABLET (100MG) X 1 WEEK 11 tablet 07/31/2024 08/14/2024 Active Start: 08-31-2023 End: 02-27-2024 take 1 tablet by mouth once daily Sertraline 50 MG tablet Take 1 tablet by mouth daily. 09/21/2023 Active Start: 08-19-2023 End: 08-31-2023 take 1 tablet by mouth once daily at bedtime sertraline (Zoloft) 25 mg tablet Take 1 tablet (25 mg) by mouth once daily at bedtime. 0 08/19/2023 08/31/2023 Discontinued (Dose adjustment) Start: 07-27-2023 take 1 tablet by nat th once daily Sertraline HCl - 25 MG Oral Tablet Take 1 tablet daily at night Quantity: 30 Refills: 3 Ordered: 27-Jul-2023 Devon Dias MD Start : 27-Jul-2023 Active START IN 2 WEEKS (PATIENT IS GOING TO WEAN OFF AMITRYPTLINE) simvastatin 40 mg oral tablet (20 sources) HMG-CoA Reductase Inhibitor Start: 12-06-2016 take 1 tablet by mouth at bedtime Simvastatin 40 MG tablet Active 40 mg PO AT BEDTIME December 06, 2016 1:00am Simvastatin 40 M G Oral Tablet Quantity: 0 Refills: 0 Ordered: 03-Apr-2018 DO Active tamsulosin hydrochloride 0.4 mg oral capsule (7 sources) alpha-Adrenergic Tracey Start: 03-07-2024 End: 04-23-2025 take 1 capsule by mouth once daily Tamsulosin HCl 0.4 MG capsule Take 1 capsule by mouth daily. 03/07/2024 Active ubidecarenone 50 mg oral capsule (20 sources) take 4 capsules by mouth once daily coenzyme Q-10 50 MG capsule Take 200 mg by mouth daily. Active take 1 capsule by mo uth once daily at dinner Coenzyme Q10 50 MG capsule Take 1 capsul e by mouth Daily (with dinner). Active ubiquinol 100 mg oral capsul e (7 sources) Start: 08-13-2024 Coq10 (Ubiquin ol) (Qunol Justin Coq10) 100 mg capsule Active 200 mg PO daily August 13, 2024 12:00am Completed/Discontinued Medications Medication Drug Class(es) Dates Sig (Normalized) Sig (Original) acetaminophen 325 mg / HYDROcodone bitartrate 5 mg oral tablet (20 sources) Opioid Agonist Start: 05-16-2021 End: 08-03-2024 Hydrocodone-Acetami nophen 1 TABLET tablet Discontinued 1 {tbl} PO EVERY 6 HOURS NEEDED as needed for Pain 10 22May 16, 2021 August 03, 2024 11:43am Start: 05-16-2021 take 1 tablet by nat th every six hours as needed Hydrocodone-Acetaminophen Active 1 TABLE T PO EVERY 6 HOURS NEEDED 12 3 May 16, 2021 Start: 12-06-2016 End: 08-03-2024 Hydrocodone-Acetaminophen 1 TABLET tablet Discontinued 1 - 2 {tbl} PO EVERY 4 HOURS NEEDED as needed for Pain December 06, 2016 1:00am August 03, 2024 11:43am Start: 12-06-2016 take 1 tablet by nat th every four hours as needed Hydrocodone-Acetaminophen Active 1 - 2 TABLET PO EVERY 4 HOURS NEEDED December 06, 2016 1:00am acetaZOLAMIDE 250 mg oral tablet (10 sources) Carbonic Anhydrase Inhibitor Start: 05-01-2019 ACETAZOLAMIDE 250 MG TABS 1 tablet twice daily ACETAZOLAMIDE [id number] Dayanara Flowers LPN Start: 12-06-2018 End: 02-18-2025 acetaZOLAMIDE (Diamox) 250 m g tablet Take by mouth. 12/06/2018 02/18/2025 Discontinued (Entered in Error) albuterol 0.83 mg/ml inhalation solution (6 sources) beta2-Adrenergic Agonist Start: 02-19-2025 End: 02-19-2025 2.5 mg, nebulization, Once as needed, wheezing, Starting on Mon02/19/25 at 1157, For 1 dose, Recovery (only) Start: 01-06-2025 take 2 puff(s) by in halation every four hours as needed albuterol 108 (90 Base) MCG/ACT inhaler Inhale 2 puffs every 4 hours as needed. 01/06/2025 Active amitriptyline hydrochloride 25 mg oral tablet (11 sources) Tricyclic Antidepressant Start: 06-22-2023 End: 02-18-2025 take 1 tablet by mouth once daily at bedtime amitriptyline (Elavil) 25 mg tablet Take 1 tablet (25 mg) by mouth once daily at bedtime. 06/22/2023 02/18/2025 Discontinued (Entered in Error) b complex-vitamin c tablet (10 sources) End: 02-18-2025 take 1 tablet by mouth once daily before mealtime b complex-vitamin c tablet Take 1 tablet by mouth once daily in the morning. Take before meals. 02/18/2025 Discontinued (Entered in Error) take 1 tablet by nat th once daily before mealtime b complex-vitamin c tablet Take 1 tablet by mouth once daily in the morning. Take before meals. Active take 1 tablet by nat th once daily before mealtime b complex-vitamin c tablet Take 1 tablet by mouth once daily in the morning. Take before meals. 0 Active BUPivacaine/lidocaine/hyalur onidase 10 mL syringe 10 mL (1 source) Start: 03-25-2024 End: 03-25-2024 inject 1 dose into the eye(s) once 10 mL, Retro/Leola bulbar, SEE ADMIN INSTRUCTIONS, 1 dose, Starting on Mon03/25/24 at 0646, Until Mon03/25/24 at 1216, Inject in right eye once., Pre-op/Pre-Proc codeine phosphate 2 mg/ml / guaiFENesin 20 mg/ml oral solution (9 sources) Opioid Agonist Start: 11-15-2022 End: 02-18-2025 take 10 mL by mouth every four hours for cough codeine-guaifenesin (Robitussin-AC) 10-100 mg/5 mL syrup take 10 milliliters (2 TEASPOONFULS) by mouth every 4 hours if needed for cough 11/15/2022 02/18/2025 Discontinued (Entered in Error) Coenzyme Q-10 CAPS (8 sources) Coenzyme Q-10 CA PS Quantity: 0 Refills: 0 Ordered: 17-Mar-2023 DO Active cyclopentolate hydrochloride 10 mg/ml ophthalmic solution (1 source) Start: 03-25-2024 End: 03-25-2024 1 drop, Right Eye, SEE ADMIN INSTRUCTIONS, 3 doses, Starting on Mon03/25/24 at 0646, Until Mon03/25/24 at 0723, Administer 1 drop topically to right eye every 5 minutes for 3 doses starting 30 minutes preprocedure., Pre-op/Pre-Proc 1 ml dexamethasone phosphate 4 mg/ml injection (1 source) Corticoster oid Start: 03-25-2024 End: 03-25-2024 2 mg, Subconjunctival, SEE ADMIN INSTRUCTIONS, 1 dose, Starting on Mon03/25/24 at 0646, Until Mon03/25/24 at 1216, Physician to inject into RIGHT eye using SUBCONJUNCTIVAL route., Intra-op/Intra-Proc 1 ml erenumab-aooe 140 mg/ml auto-injector (9 sources) Start: 11-16-2022 End: 02-18-2025 Aimovig Autoinjector 140 mg/mL injection 11/16/2022 02/18/2025 Discontinued (Entered in Error) ergocalciferol 0.01 mg oral tablet (9 sources) Provitamin D2 Compound End: 02-18-2025 cholecalciferol (VITAMIN D-3) 10 mcg (400 unit) tablet Take by mouth. 02/18/2025 Discontinued (Entered in Error) furosemide 20 mg oral tablet (20 sources) Loop Diuretic Start: 08-08-2024 End: 03-21-2025 take 1 tablet by mouth once daily Furosemide 20 mg tablet Discontinued 20 mg PO DAILY November 04, 2024 11:40am March 21, 2025 8:05am hydroCHLOROthiazide 12.5 mg oral tablet (20 sources) Thiazide Diuretic Start: 05-01-2019 End: 02-18-2025 HYDROCHLOROTHIAZIDE 12.5 MG TABS 1 tablet daily HYDROCHLOROTHIAZIDE [id number] Dayanara Flowers LPN Start: 12-06-2016 End: 08-03-2024 take 1 capsule by mouth once daily Hydrochlorothiazide 12.5 MG capsule Discontinued 12.5 mg PO DAILY December 06, 2016 1:00am August 03, 2024 11:43am 0.5 ml HYDROmorphone hydrochloride 1 mg/ml prefilled syringe (1 source) Opioid Agonist Start: 02-19-2025 End: 02-19-2025 0.5 mg, intravenous, Every 5 min PRN, pain severe (7-10), first line, Starting on Mon02/19/25 at 1157, Recovery (only), Max total of 4 mg regardless of dose. indomethacin 25 mg oral capsule (9 sources) Nonsteroidal Anti-inflammatory Drug Start: 08-05-2024 End: 04-23-2025 take 2 capsules by mouth three times daily at mealtime Indomethacin 25 mg Capsule Discontinued 50 mg PO 3 TIMES DAILY WITH MEALS 168 August 05, 2024 12:00am November 06, 2024 7:27pm Magnesium (8 sources) Magnesium TABS Quantity: 0 Refills: 0 Ordered: 17-Mar-2023 DO Active meclizine hydrochloride 12.5 mg oral tablet (17 sources) Antiemetic Start: 11-08-2022 End: 02-18-2025 take 1 tablet by mouth three times daily as needed for dizziness meclizine (Antivert) 12.5 mg tablet Take 1 tablet (12.5 mg) by mouth 3 times a day as needed for dizziness. 06/22/2023 02/18/2025 Discontinued (Entered in Error) MULTIPLE VITAMINS-MINERALS (1 source) Start: 05-01-2019 MULTIVITAMIN ADULT TABS 1 tablet daily MULTIPLE VITAMINS-MINERALS [id number] Dayanara Flowers LPN nortriptyline 25 mg oral capsule (20 sources) Tricyclic Antidepressant Start: 09-21-2022 End: 02-18-2025 take 3 capsules by mouth once daily at bedtime nortriptyline (Pamelor) 25 mg capsule Take 3 capsules (75 mg) by mouth once daily at bedtime. 03/07/2023 02/18/2025 Discontinued (Entered in Error) Start: 05-16-2021 End: 08-03-2024 take 1 capsule by mouth at bedtime Nortriptyline 10 mg capsule Discontinued 10 mg PO AT BEDTIME May 16, 2021 12:00am August 03, 2024 12:58pm ondansetron 4 mg disintegrating oral tablet (12 sources) Serotonin-3 Receptor Antagonist Start: 05-16-2021 End: 08-03-2024 take 1 tablet by mouth every six hours as needed for nausea Ondansetron 4 MG tablet Discontinued 4 mg PO EVERY 6 HOURS NEEDED as needed for Nausea May 16, 2021 5:11pm August 03, 2024 11:43am One-Daily Multi Vitamins Oral Tablet (8 sources) One-Daily Multi Vitamins Oral Tablet Quantity: 0 Refills: 0 Ordered: 17-Mar-2023 DO Active pantoprazole 20 mg delayed release oral tablet (20 sources) Proton Pump Inhibitor Start: 08-13-2024 End: 11-06-2024 take 1 tablet by mouth once daily Pantoprazole 20 mg tablet,delayed release (DR/EC) Discontinued 20 mg PO DAILY August 15, 2024 9:44am November 06, 2024 7:27pm Start: 08-07-2024 End: 08-13-2024 take 2 tablets by mouth once daily Pantoprazole 20 mg tablet,delayed release (DR/EC) Discontinued 40 mg PO DAILY August 07, 2024 12:00am August 13, 2024 2:41pm Start: 08-05-2024 End: 08-07-2024 take 1 tablet by mouth once daily Pantoprazole 20 mg tablet,delayed release (DR/EC) Discontinued 20 mg PO DAILY August 05, 2024 12:00am August 07, 2024 12:54am Paxlovid 300 mg (150 mg x 2)-100 mg tablet therapy pack (9 sources) Start: 11-14-2022 End: 02-18-2025 Paxlovid 300 mg (150 mg x 2) -100 mg tablet therapy pack take 2 NIRMATRELVIR tablets with 1 RITONAVIR tablet twice a day for 5 days 11/14/2022 02/18/2025 Discontinued (Entered in Error) Start: 11-14-2022 Paxlovid 300 m g (150 mg x 2)-100 mg tablet therapy pack take 2 NIRMATRELVIR tablets with 1 RITONAVIR tablet twice a day for 5 days 11/14/2022 Active Start: 11-14-2022 Paxlovid 300 m g (150 mg x 2)-100 mg tablet therapy pack take 2 NIRMATRELVIR tablets with 1 RITONAVIR tablet twice a day for 5 days 0 11/14/2022 Active phenylephrine hydrochloride 25 mg/ml ophthalmic solution (1 source) alpha-1 Adrenergic Agonist Start: 03-25-2024 End: 03-25-2024 1 drop, Right Eye, SEE ADMIN INSTRUCTIONS, 3 doses, Starting on Mon03/25/24 at 0646, Until Mon03/25/24 at 0723, Administer 1 drop topically to right eye every 5 minutes for 3 doses starting 30 minutes preprocedure., Pre-op/Pre-Proc potassium chloride 10 meq extended release oral tablet (20 sources) Start: 08-08-2024 End: 03-21-2025 take 1 tablet by mouth once daily Potassium Chloride 10 mEq tablet extended release Discontinued 10 meq PO DAILY November 21, 2024 11:45am March 21, 2025 8:05am predniSONE 10 mg oral tablet (9 sources) Start: 05-29-2020 End: 02-18-2025 predniSONE (Deltasone) 10 mg tablet Take by mouth four (4) tabs x3 days; then three (3) tabs x3days; then two (2) tabs x3 days; then one (1) tab a day x3 days 05/29/2020 02/18/2025 Discontinued (Entered in Error) promethazine hydrochloride 25 mg oral tablet (1 source) Phenothiazine Start: 05-01-2019 PROMETHAZINE HCL 25 MG TABS 1 tablet daily PROMETHAZINE HCL [id number] Dayanara Flowers LPN ramipril 10 mg oral capsule (9 sources) Angiotensin Converting Enzyme Inhibitor End: 02-18-2025 take 1 capsule by mouth once daily ramipril (Altace) 10 mg capsule Take 1 capsule (10 mg) by mouth once daily. 02/18/2025 Discontinued (Entered in Error) ribociclib 200 mg oral tablet (14 sources) End: 02-18-2025 ribociclib (Kisqali) 200 mg tablet therapy pack Take 1 tablet (200 mg total) by mouth once daily. Take 1 tablet (200 mg) by mouth in the morning for 21 days, followed by 7 days off per 28-day treatment cycle. 02/18/2025 Discontinued (Entered in Error) riboflavin 400 mg oral tablet (7 sources) Start: 08-03-2024 End: 08-13-2024 take 1 tablet by mouth once daily Riboflavin (Vitamin B2) 400 mg tablet Discontinued 400 mg PO DAILY August 03, 2024 12:00am August 13, 2024 2:40pm 50 ml sodium chloride 9 mg/ml injection (6 sources) Start: 05-06-2025 End: 05-06-2025 take 100 mL intravenously every hour as needed, then take 20 mL intravenously every hour as needed 5-250 mL/hr, IntraVENous, PRN, if patient receiving piggyback infusions and maintenance fluids are not ordered OR KVO fluids to protect IV site / prevent frequent line interruptions / long duration, Starting on Mon05/06/25 at 0637, Preprocedure, For piggyback infusion, administer at same rate as piggyback for a total of 25 mL. Enter 25 mL into dose field and piggyback rate into rate field of order. If piggyback is infusing at a rate less than 100 mL/hr, enter 25 mL into dose field and 100 mL/hr into rate field of order. For KVO fluids, enter rate of 20 mL/hr or less into rate field of order. Start: 05-06-2025 End: 05-06-2025 5-40 mL, IntraVENous, PRN, l ine care, After every IV line use, Starting on Mon05/06/25 at 0637, Preprocedure, For Line Patency: Peripheral IV = 5 mL; Midline or Central Line = 10 mL/lumen. If following IV push medication, administer flush at same rate as the IV push. Flush volume is determined by type of infusion therapy being given. For non-viscous solutions use: Peripheral IV = 5 mL Midline or Central Line = 10 mL/lumen For viscous solutions (i.e. blood components, parenteral nutrition, contrast media, or after obtaining blood sample) use: Peripheral IV = 10 mL Midline or Central Line = 20 mL/lumen Start: 05-06-2025 End: 05-06-2025 take 5-40 mL intravenously every twelve hours 5-40 mL, IntraVENous, Every 12 hours, First dose on Mon05/06/25 at 0645, Preprocedure, For Line Patency: Peripheral IV = 5 mL; Midline or Central Line = 10 mL/lumen. If following IV push medication, administer flush at same rate as the IV push. Flush volume is determined by type of infusion therapy being given. For non-viscous solutions use: Peripheral IV = 5 mL Midline or Central Line = 10 mL/lumen For viscous solutions (i.e. blood components, parenteral nutrition, contrast media, or after obtaining blood sample) use: Peripheral IV = 10 mL Midline or Central Line = 20 mL/lumen Sutab 1.479-0.188- 0.225 gra m tablet (9 sources) Start: 10-31-2022 End: 02-18-2025 Sutab 1.479-0.188- 0.225 gra m tablet 10/31/2022 02/18/2025 Discontinued (Entered in Error) Start: 10-31-2022 Sutab 1.479-0. 188- 0.225 gram tablet 10/31/2022 Active Start: 10-31-2022 Sutab 1.479-0. 188- 0.225 gram tablet tropicamide 10 mg/ml ophthalmic solution (1 source) Anticholinergic Start: 03-25-2024 End: 03-25-2024 1 drop, Right Eye, SEE ADMIN INSTRUCTIONS, 3 doses, Starting on 03/25/24 at 0646, Until Mon03/25/24 at 0723, Administer 1 drop topically to right eye every 5 minutes for 3 doses starting 30 minutes preprocedure., Pre-op/Pre-Proc 24 hr venlafaxine 37.5 mg extended release oral capsule (11 sources) Serotonin and Norepinephrine Reuptake Inhibitor Start: 06-14-2019 End: 02-18-2025 take 1 capsule by mouth every twenty-four hours venlafaxine XR (Effexor-XR) 37.5 mg 24 hr capsule Take by mouth. 06/14/2019 02/18/2025 Discontinued (Entered in Error) End: 04-23-2025 take 1 capsule by mouth once daily venlafaxine XR (Effexor XR) 150 MG 24 hr capsule Take 150 mg by mouth daily. 04/23/2025 Discontinued (Therapy completed) Problems Active Problems Problem Classification Problem Date Documented Da te Episodic/Chronic Abdominal pain (12 sources) Left flank pain; Translations: [Unspecified abdominal pain] 05-16-2021 Episodic Acute myocardial infarction (9 sources) Myocardial infarction; Translations: [Non-ST elevation (NSTEMI) myocardial infarction] Onset: 10-11-2024 08-13-2024 Chronic Calculus of urinary tract (12 sources) Ureteric stone of lower third of ureter; Translations: [Calculus of ureter] 05-16-2021 Episodic Cataract (3 sources) Pseudophakia of left eye; Translations: [Presence of intraocular lens] Onset: 03-14-2024 03-13-2024 Chronic Complication of device; implant or graft (4 sources) Dislocated intraocular lens; Translations: [Displacement of intraocular lens, initial encounter] Onset: 04-23-2024 03-13-2024 Episodic Conditions associated with dizziness or vertigo (10 sources) Endolymphatic hydrops; 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, bilateral] Onset: 09-10-2013 10-25-2023 Chronic Coronary atherosclerosis and other heart disease (18 sources) Coronary arteriosclerosis; Translations: [Atherosclerotic heart disease of [place] coronary artery without angina pectoris] Onset: 08-15-2024 08-13-2024 Chronic Diabetes mellitus with complications (3 sources) 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; Translations: [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] Onset: 04-23-2024 04-17-2024 Chronic Disorders of lipid metabolism (16 sources) Hypercholesterolemia ; Translations: [Pure hypercholesterolemia , unspecified] Onset: 08-28-2024 08-13-2024 Chronic Essential hypertension (15 sources) Hypertensive disorder; Translations: [Essential (primary) hypertension] Onset: 10-11-2024 08-13-2024 Chronic Nonspecific chest pain (7 sources) Chest pain; Translations: [Chest pain, unspecified] 08-13-2024 Episodic Occlusion or stenosis of precerebral arteries (7 sources) Carotid artery stenosis; Translations: [Occlusion and stenosis of unspecified carotid artery] 09-02-2024 Chronic Other aftercare (3 sources) Surgical follow-up; Translations: [Encounter for surgical aftercare following surgery on the sense organs] 03-26-2024 Episodic Other aftercare (2 sources) Encounter for surgical aftercare following surgery on the sense organs; Translations: [Encounter for surgical aftercare following surgery on the sense organs] Onset: 04-23-2024 Episodic Other aftercare (7 sources) Long-term current use of diuretic; Translations: [Encounter for therapeutic drug level monitoring] 11-01-2024 Episodic Other circulatory disease (8 sources) H/O: hypertension; Translations: [Personal history of other diseases of circulatory system] Episodic Other circulatory disease (7 sources) History of pericarditis; Translations: [Personal history of other diseases of the circulatory system] 11-14-2024 Episodic Other ear and sense organ disorders (20 sources) Cochlear prosthesis in situ; Translations: [Other postprocedural status] Onset: 05-12-2019 10-25-2023 Chronic Other ear and sense organ disorders (3 sources) Cochlear implant status; Translations: [Cochlear implant status] Onset: 05-08-2023 Chronic Other ear and sense organ disorders (10 sources) Sensorineural hearing loss, bilateral; Translations: [Sensorineural hearing loss, bilateral] Onset: 05-12-2019 10-25-2023 Chronic Other ear and sense organ disorders (5 sources) Bilateral sensory hearing loss; Translations: [Sensorineural hearing loss, bilateral] Onset: 03-02-2009 04-23-2025 Chronic Other eye disorders (1 source) Phacodonesis; Translations: [Other specified disorders of lens] 03-13-2024 Chronic Other eye disorders (2 sources) Other specified disorders of lens; Translations: [Other specified disorders of lens] Onset: 03-14-2024 Chronic Other lower respiratory disease (9 sources) Disorder of diaphragm; Translations: [Disorders of diaphragm] Onset: 02-19-2025 02-06-2025 Episodic Other lower respiratory disease (20 sources) Dyspnea; Translations: [Shortness of breath] Onset: 04-23-2025 02-06-2025 Episodic Other lower respiratory disease (11 sources) Paralysis of diaphragm ; Translations: [Disorders of diaphragm] Onset: 02-06-2025 02-06-2025 Episodic Other lower respiratory disease (2 sources) Disorders of diaphragm; Translations: [Disorders of diaphragm] Onset: 02-06-2025 Episodic Other lower respiratory disease (4 sources) Shortness of breath Episodic Other lower respiratory disease (3 sources) Shortness of breath; Translations: [Shortness of breath] Onset: 07-30-2024 Episodic Other nervous system disorders (20 sources) Peripheral nerve disease ; Translations: [Unspecified hereditary and idiopathic peripheral neuropathy] Onset: 10-25-2023 10-25-2023 Chronic Other nervous system disorders (2 sources) Polyneuropathy; Translations: [Other specified polyneuropathies] 10-29-2024 Chronic Other nervous system disorders (2 sources) Other specified polyneuropathies; Translations: [Other specified polyneuropathies] Onset: 10-25-2023 Chronic Other nervous system disorders (8 sources) H/O: cataract; Translations: [Personal history of other disorders of nervous system and sense organs] Episodic Other nervous system disorders (1 source) Acute postoperative pain; Translations: [Other acute postprocedural pain] 02-20-2025 Episodic Other nutritional; endocrine; and metabolic disorders (2 sources) Body mass index 30+ - obesity; Translations: [Obesity, unspecified] 04-28-2025 Chronic Other nutritional; endocrine; and metabolic disorders (8 sources) H/O: metabolic disorder; Translations: [Personal history of other endocrine, metabolic, and immunity disorders] Episodic [place]-; endo-; and myocarditis; cardiomyopathy (except that caused by tuberculosis or sexually transmitted disease) (20 sources) Myocarditis; Translations: [Myocarditis, unspecified] Onset: 10-11-2024 08-13-2024 Chronic [place]-; endo-; and myocarditis; cardiomyopathy (except that caused by tuberculosis or sexually transmitted disease) (20 sources) Pericarditis; Translations: [Disease of pericardium, unspecified] Onset: 08-13-2024 08-13-2024 Episodic Thyroid disorders (1 source) Nontoxic multinodular goiter; Translations: [Nontoxic multinodular goiter] Onset: 02-09-2025 Chronic Unclassified (1 source) Unknown / UNK(Unknown) Onset: 09-05-2017 Unclassified (4 sources) R06.02 - Shortness of breath,I30.0 - Acute nonspecific idiopathic pericarditis Unclassified (2 sources) Other pericardial effusion (noninflammatory); Translations: [Other pericardial effusion (noninflammatory)] Onset: 10-01-2024 Past or Other Problems Problem Classification Problem Date Documented Da te Episodic/Chronic Biliary tract disease (10 sources) Acute cholecystitis; Translations: [Acute cholecystitis] Onset: 03-13-2006 10-25-2023 Episodic Conditions associated with dizziness or vertigo (20 sources) Dizziness; Translations: [Dizziness and giddiness] Onset: 06-01-2009 08-31-2023 Episodic Hemorrhoids (15 sources) Internal hemorrhoids; Translations: [Other hemorrhoids] Onset: 09-15-2008 Resolved: 10-25-2023 10-25-2023 Episodic Other and unspecified benign neoplasm (15 sources) Benign neoplasm of colon; Translations: [Benign neoplasm of colon, unspecified] Onset: 09-15-2008 10-25-2023 Episodic Other connective tissue disease (1 source) Arthrodesis status; Translations: [ARTHRODESIS STATUS] Onset: 06-06-2017 Episodic Other ear and sense organ disorders (10 sources) Subjective tinnitus; Translations: [Tinnitus, unspecified ear] Onset: 10-12-2009 10-25-2023 Episodic Other ear and sense organ disorders (15 sources) Tinnitus of left ear; Translations: [Tinnitus, left ear] Onset: 10-12-2009 10-25-2023 Episodic Other gastrointestinal disorders (1 source) Other fecal abnormalities; Translations: [Other fecal abnormalities] Onset: 11-23-2024 Episodic Other lower respiratory disease (1 source) Dyspnea, unspecified; Translations: [Dyspnea, unspecified] Onset: 02-06-2025 Episodic Other lower respiratory disease (1 source) Other forms of dyspnea; Translations: [Other forms of dyspnea] Onset: 12-05-2024 Episodic Other lower respiratory disease (1 source) Chest pain on breathing; Translations: [Chest pain on breathing] Onset: 08-28-2024 Episodic Other nervous system disorders (15 sources) Impairment of balance; Translations: [Other abnormalities of gait and mobility] Onset: 05-12-2019 10-25-2023 Episodic Other nutritional; endocrine; and metabolic disorders (15 sources) Overweight; Translations: [Overweight] Onset: 03-07-2016 10-25-2023 Episodic Other screening for suspected conditions (not mental disorders or infectious disease) (8 sources) Raised cardiac enzyme or marker; Translations: [Other specified abnormal findings of blood chemistry] Onset: 10-11-2024 08-13-2024 Episodic Retinal detachments; defects; vascular occlusion; and retinopathy (18 sources) Rhegmatogenous retinal detachment; Translations: [Unspecified retinal detachment with retinal break, right eye] Onset: 10-08-2015 10-25-2023 Episodic Spondylosis; intervertebral disc disorders; other back problems (20 sources) Spinal stenosis, lumbar region; Translations: [Radiculopathy, lumbar region] Onset: 06-06-2017 05-02-2019 Episodic Unclassified (1 source) Problem Unclassified (11 sources) Onset: 08-31-2023 Resolved: 10-29-2024 08-31-2023 Results Test Name Value Interpretation Reference Range Facility Anion gap in Serum or Plasma Ordered By: Alfredo Vasquez on 05-08-2025 Anion gap [Moles/Vol] 11 mmol/L 04-03 [facility] BUN/creatinine ratioOrdered By: Alfredo Vasquez on 05-08-2025 Urea nitrogen/Creatinine [Mass ratio] 24.7 mg/mg High 09-08 [facility] Bilirubin, totalOrdered By: Alfredo Vasquez on 05-08-2025 Bilirubin [Mass/Vol] 0.38 mg/dL 0.00-1.30 [facility] Calculated very low density lipoprotein (VLDL) cholesterol measurementOrdered By: Alfredo Vasquez on 05-08-2025 Calculated very low density lipoprotein (VLDL) cholesterol measurement 61 mg/dL High 5-40 [facility] Carbon dioxide, total [Moles /volume] in Central venous bloodOrdered By: Alfredo Vasquez on 05-08-2025 CO2 [Moles/Vol] 25.2 mmol/L 21.0-32.0 [facility] Chloride assayOrdered By: Aline Vasquez on 05-08-2025 Chloride [Moles/Vol] 104 mmol/L 98-108 [facility] Comprehensive Metabolic Prof ilon 05-08-2025 Albumin [Mass/Vol] 4.2 g/dL Normal 3.4-4.8 [facility] Comment on above: Performed By: #### L 500.4100, L500.4050, [id number] ####[facility] [address] [place], [address] Albumin/Globulin [Mass ratio] 1.6 {ratio} Normal 0.9-2.4 [facility] Comment on above: Performed By: #### L 500.4100, L500.4050, [id number] ####[facility] [address] [place], [address] ALK PHOS 110 U/L Normal 40-129 [facility] Comment on above: Performed By: #### L 500.4100, L500.4050, [id number] ####[facility] [address] [place], [address] ALT [Catalytic activity/Vol] 24 U/L Normal <=46 [facility] Comment on above: Performed By: #### L 500.4100, L500.4050, [id number] ####[facility] [address] [place], [address] AST [Catalytic activity/Vol] 27 U/L Normal <=37 [facility] Comment on above: Performed By: #### L 500.4100, L500.4050, [id number] ####[facility] [address] [place], [address] Bilirubin [Mass/Vol] 0.38 mg/dL Normal 0.00-1.30 [facility] Comment on above: Performed By: #### L 500.4100, L500.4050, [id number] ####[facility] [address] [place], [address] BUN/CRE 24.7 RATIO High 10-20 [facility] Comment on above: Performed By: #### L 500.4100, [id number], [id number] ####[facility] [address] [place], [address] Calcium [Mass/Vol] 9.9 mg/dL Normal 7.6-11.0 [facility] Comment on above: Performed By: #### L 500.4100, L500.4050, [id number] ####[facility] [address] [place], [address] Chloride [Moles/Vol] 104 mmol/L Normal 98-108 [facility] Comment on above: Performed By: #### L 500.4100, L500.4050, [id number] ####[facility] [address] [place], [address] CO2 [Moles/Vol] 25.2 mmol/L Normal 21.0-32.0 [facility] Comment on above: Performed By: #### L 500.4100, L500.4050, [id number] ####[facility] [address] [place], [address] Creatinine [Mass/Vol] 0.99 mg/dL Normal 0.70-1.20 [facility] Comment on above: Performed By: #### L 500.4100, L500.4050, [id number] ####[facility] [address] [place], [address] GAP 11 Normal 5-15 [facility] Comment on above: Performed By: #### L 500.4100, L500.4050, [id number] ####[facility] [address] [place], [address] GFR/1.73 sq M.predicted among non-blacks MDRD (S/P/Bld) [Vol rate/Area] 79 mL/min/{1.73_m2} Normal >60 [facility] Comment on above: Result Comment: mL/m in/1.73m2 CKD-EPI Creatinine Equation (2020) Performed By: #### L 500.4100, L500.4050, [id number] ####[facility] [address] [place], [address] Globulin (S) [Mass/Vol] 2.7 g/dL Normal 2.2-4.2 [facility] Comment on above: Performed By: #### L 500.4100, L500.4050, [id number] ####[facility] [address] [place], [address] Glucose [Mass/Vol] 91 mg/dL Normal 70-99 [facility] Comment on above: Performed By: #### L 500.4100, [id number], [id number] ####[facility] [address] [place], [address] Potassium [Moles/Vol] 4.3 mmol/L Normal 3.3-5.1 [facility] Comment on above: Performed By: #### L 500.4100, L500.4050, [id number] ####[facility] [address] [place], [address] Sodium [Moles/Vol] 141 mmol/L Normal 133-145 [facility] Comment on above: Performed By: #### L 500.4100, L500.4050, [id number] ####[facility] [address] [place], [address] T PROT 6.8 g/dL Normal 5.9-8.4 [facility] Comment on above: Performed By: #### L 500.4100, L500.4050, [id number] ####[facility] [address] [place], [address] Urea nitrogen [Mass/Vol] 24 mg/dL High 03-08 [facility] Comment on above: Performed By: #### L 500.4100, L500.4050, [id number] ####[facility] [address] [place], [address] Glomerular filtration rate ( GFR) estimation/1.73 sq m using serum, plasma, or whole bOrdered By: Alfredo Vasquez on 05-08-2025 GFR/1.73 sq M.predicted among non-blacks MDRD (S/P/Bld) [Vol rate/Area] 79 mL/min/{1.73_m2} >60 [facility] Comment on above: mL/min/1.73m2 CKD-EP I Creatinine Equation (2020) LDL calc ser/plasOrdered By: Alfredo Vasquez on 05-08-2025 Cholesterol in LDL [Mass/Vol] 76 mg/dL [facility] Comment on above: Nsldpdymdm=219-891 m g/dL & Higher Dpiy=736 mg/dL or greater Laboratory - Chemistry and C hemistry - challengeOrdered By: Alfredo Vasquez on 05-08-2025 AST [Catalytic activity/Vol] 27 U/L <38 [facility] Lipid Profileon 05-08-2025 CHOL:HDL 4.39 Normal [facility] Comment on above: Performed By: #### L 500.4100, L500.4050, [id number] ####[facility] [address] [place], [address] Cholesterol [Mass/Vol] 177 mg/dL Normal <=200 [facility] Comment on above: Result Comment: Chol esterol level, Desirable <200 mg/dLBorderline high cholesterol 200-239 mg/dLHigh cholesterol >=240 mg/dLRecommendations of the NCEP Adult Treatment Panel for thefollowing risk-cutoff thresholds for the [place] Americanpopulation. Performed By: #### L 500.4100, L500.4050, [id number] ####[facility] [address] [place], [address] Cholesterol in HDL [Mass/Vol] 40 mg/dL Normal [facility] Comment on above: Result Comment: [place] Cholesterol Education Program (NCEP) guidelines:<40 mg/dL: Low HDL-cholesterol (major risk factor for CHD)>= 60 mg/dL: High HDL-cholesterol (negative risk factor forCHD)HDL-cholesterol is affected by a number of factors, e.g.smoking, exercise, hormones, sex and age. Performed By: #### L 500.4100, L500.4050, [id number] ####[facility] [address] [place], [address] Cholesterol in LDL [Mass/Vol] 76 mg/dL Normal [facility] Comment on above: Result Comment: Bord xfkdjs=088-574 mg/dL Higher Zqmf=704 mg/dL or greater Performed By: #### L 500.4100, L500.4050, [id number] ####[facility] [address] [place], [address] Cholesterol in VLDL [Mass/Vol] 61 mg/dL High 5-40 [facility] Comment on above: Performed By: #### L 500.4100, L500.4050, [id number] ####[facility] [address] [place], [address] Triglyceride [Mass/Vol] 303 mg/dL High [facility] Comment on above: Result Comment: The drugs N-Acetylcysteine and Metamizole may falselydepress this assay.Normal range: <150 mg/dLBorderline High: 150-199 mg/dLHigh: 200-499 mg/dLVery High: >500 mg/dL Performed By: #### L 500.4100, L500.4050, L501.9940 ####[facility] [address] [place], [place], [address] PSA,Total- Diagnosticon 04-20 PSA, DIAGNOSTIC 2.24 ng/mL Normal 0.00-4.00 [facility] Comment on above: Result Comment: This test was performed using the [employer] tPSAmethod. Measured values of a patient??sample can varydepending on the testing procedure used. PSA valuesdetermined on patient samples by different testingprocedures cannot be used interchangeably. If there is achange in PSA assays while monitoring therapy, sequentialtesting should be performed to confirm baseline values. Performed By: #### L 500.4100, L500.4050, L501.9940 ####[facility] [address] [place], [place], [address] Potassium measurement (mass/ volume)Ordered By: Alfredo Vasquez on 05-08-2025 Potassium (Unsp spec) [Mass/Vol] 4.3 mmol/L 3.3-5.1 [facility] Screening total cholesterol/ high density lipoprotein (HDL) cholesterol ratioOrdered By: Alfredo Vasquez on 05-08-2025 Cholesterol.total/Carol sterol in HDL [Mass ratio] 4.39 {ratio} [facility] Serum creatinine measurement (mass/volume)Ordered By: Alfredo Vasquez on 05-08-2025 Creatinine [Mass/Vol] 0.99 mg/dL 0.70-1.20 [facility] Serum globulin measurementOr dered By: Alfredo Vasquez on 05-08-2025 Globulin (S) [Mass/Vol] 2.7 g/dL 2.2-4.2 [facility] Serum glucose measurement (m ass/volume)Ordered By: Alfredo Vasquez on 05-08-2025 Glucose [Mass/Vol] 91 mg/dL 70-99 [facility] Serum or plasma alanine allen otransferase (ALT) measurementOrdered By: Alfredo Vasquez on 05-08-2025 ALT [Catalytic activity/Vol] 24 U/L <47 [facility] Serum or plasma albumin dex urement (mass/volume)Ordered By: Alfredo Vasquez on 05-08-2025 Albumin [Mass/Vol] 4.2 g/dL 3.4-4.8 [facility] Serum or plasma albumin/glob ulin mass ratioOrdered By: Alfredo Vasquez on 05-08-2025 Albumin/Globulin [Mass ratio] 1.6 {ratio} 0.9-2.4 [facility] Serum or plasma alkaline sarahy sphatase measurementOrdered By: Alfredo Vasquez on 05-08-2025 ALP [Catalytic activity/Vol] 110 U/L 40-129 [facility] Serum or plasma calcium dex urement (mass/volume)Ordered By: Alfredo Vasquez on 05-08-2025 Calcium [Mass/Vol] 9.9 mg/dL 7.6-11.0 [facility] Serum or plasma cholesterol in HDL measurement (mass/volume)Ordered By: Alfredo Vasquez on 05-08-2025 Cholesterol in HDL [Mass/Vol] 40 mg/dL >40 [facility] Comment on above: National Cholesterol Education Program (NCEP) guidelines:<40 mg/dL: Low HDL-cholesterol (major risk factor for CHD)>= 60 mg/dL: High HDL-cholesterol (negative risk factor for CHD)HDL-cholesterol is affected by a number of factors, e.g. smoking, exercise, hormones, sex and age. Serum or plasma cholesterol measurement (mass/volume)Ordered By: Alfredo Vasquez on 05-08-2025 Cholesterol [Mass/Vol] 177 mg/dL <201 [facility] Comment on above: Cholesterol level, D esirable <200 mg/dLBorderline high cholesterol 200-239 mg/dLHigh cholesterol >=240 mg/dLRecommendations of the NCEP Adult Treatment Panel for the following risk-cutoff thresholds for the [place] population. Serum or plasma urea nitroge n measurement (mass/volume)Ordered By: Alfredo Vasquez on 05-08-2025 Urea nitrogen [Mass/Vol] 24 mg/dL High 4-19 [facility] Sodium levelOrdered By: Alfredo Vasquez on 05-08-2025 Sodium [Moles/Vol] 141 mmol/L 133-145 [facility] Total proteinOrdered By: Jyotsna Vasquez on 05-08-2025 Protein [Mass/Vol] 6.8 g/dL 5.9-8.4 [facility] Triglycerides measurementOrd ered By: Alfredo Vasquez on 05-08-2025 Triglyceride [Mass/Vol] 303 mg/dL High <199 [facility] Comment on above: The drugs N-Acetylcy steine and Metamizole may falsely depress this assay. Normal range: <150 mg/dLBorderline High: 150-199 mg/dLHigh: 200-499 mg/dLVery High: >500 mg/dL Anesthesia Noteon 05-06-2025 Anesthesia Note Sedation Plan ASA class 2 - patient with mild systemic disease Mallampati class: II - soft palate, uvula, fauces visible. Sedation plan: local anesthesia Risks, benefits, and alternatives discussed with patient. Sergio Pino MD, PhD Advanced Heart Failure Cardiology Electrical Prospecting Engineerbody care manager, [facility] Trial Manager, [facility] LVAD Program and CCU Mechanical Process Engineer, Department of Cardiovascular disease [facility] [place] 7:41 AM 05/06/25 Normal [facility] Cardiac catheterization stud yon 05-06-2025 Normal right heart catheterization No evidence of congestive heart failure, pulmonary hypertension, or constriction Procedure Details Patient was prepped in the typical sterile fashion. Right internal jugular access was obtained under ultrasound guidance with a 7 Macedonian sheath. Right heart catheterization was then performed and sheath removed with manual pressure held for 10 minutes. Hemodynamic Data Pressures Phase: Room air Right RA Mean: 7 mmHg RA A-Wave: 10 mmHg RA V-Wave: 8 mmHg RV: 34/4 mmHg Pulmonary PA: 27/12 (18) mmHg PCW Mean: 8.0 mmHg PCW A-Wave: 12.0 mmHg PCW V-Wave: 9.0 mmHg Delisa: 2.1 Hemodynamic Data Cardiac Output and Resistance Phase: Room air Thermo CO: 5.8 L/min Resistance Thermo PVR: 1.7 HANCOCK Thermo PVR: 138 (dyne x sec)/cm5 Hemodynamic Data Saturations Phase: Room air Saturations VO2: 285 mL/kg/min Assumed VO2 - Male: 110 mL/kg/min HR for VO2: 59 bpm RA: 71 % PA: 70 % Right Heart Cath [place] catheter inserted via right internal jugular vein. No pulmonary hypertension noted. No shunt was noted. Clinical Background Mr. 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 Hemodynamics Interpretation End Expiratory Hemodynamics: RA: 7 mmHg RV: 35/7 mmHg PA 30/15 (mean 18 mmHg) PCW: 12 mmHg Cardiac output/index by Navin: 5.2 L/min / 2.3 L/min/m2 Cardiac output/index by TE: 5.8 L/min / 2.5 L/min/m2 PVR 1.5 Wood Units Cath Recommendations Continue workup and treatment for non-heart failure and non-contriction causes of shortness of breath. CV CPACS HEMO [facility] No Panel Informationon 05-06 Performed by: [place] [address] CLIA ID: [id number] Reportable Results: OxyHemoglobin 0 - 100% Expected Ranges: OxyHemoglobin Arterial Sample 95 - 100%* Adequate Oxygenation >=92% Venous sample 60 - 85%* Note: *OxyHemoglobin Reference Ranges based upon literature review Adequate oxygenation based upon [facility] Clinical Decision [facility] Performed by: [facility], [address] [place] [address] CLIA ID: [id number] Reportable Results: OxyHemoglobin 0 - 100% Expected Ranges: OxyHemoglobin Arterial Sample 95 - 100%* Adequate Oxygenation >=92% Venous sample 60 - 85%* Note: *OxyHemoglobin Reference Ranges based upon literature review Adequate oxygenation based upon [facility] Clinical Decision [facility] Vital signson 05-06-2025 Oxygen saturation in Blood 70 % [facility] Oxygen saturation in Blood 71 % [facility] 36on 04-24-2025 36 No auth needed for R CPT 31744 per Traditional Medicare and AARP Medicare Supplement Guidelines Normal [facility] 36 Orders placed Normal [facility] 36 Pt scheduled for RHC with Dr Pino on 05/01/25 @ 7a. Pts H&P/EKG are UTD. Pt will have labs at [facility]. Alison did teach in office. Almaz, please place surg/proc orders Normal [facility] Anion gap in Serum or Plasma on 04-24-2025 Anion gap [Moles/Vol] 11 mmol/L - [facility] BUN/creatinine ratioon 04-24 Urea nitrogen/Creatinine [Mass ratio] 21.8 mg/mg High - [facility] Basic Metabolic Profile (BMP )on 04-24-2025 BUN/CRE 21.8 RATIO High - [facility] Comment on above: Performed By: #### L 100.0500, L500.2500 ####[facility] [address] [place], [address] Calcium [Mass/Vol] 9.6 mg/dL Normal 7.6-11.0 [facility] Comment on above: Performed By: #### L 100.0500, L500.2500 ####[facility] [address] [place], [address] Chloride [Moles/Vol] 106 mmol/L Normal 98-108 [facility] Comment on above: Performed By: #### L 100.0500, L500.2500 ####[facility] [address] [place], [address] CO2 [Moles/Vol] 24.6 mmol/L Normal 21.0-32.0 [facility] Comment on above: Performed By: #### L 100.0500, L500.2500 ####[facility] [address] [place], [address] Creatinine [Mass/Vol] 1.02 mg/dL Normal 0.70-1.20 [facility] Comment on above: Performed By: #### L 100.0500, L500.2500 ####[facility] [address] [place], [address] GAP 11 Normal - [facility] Comment on above: Performed By: #### L 100.0500, L500.2500 ####[facility] [address] [place], [address] GFR/1.73 sq M.predicted among non-blacks MDRD (S/P/Bld) [Vol rate/Area] 76 mL/min/{1.73_m2} Normal >60 [facility] Comment on above: Result Comment: mL/m in/1.73m2 CKD-EPI Creatinine Equation (2020) Performed By: #### L 100.0500, L500.2500 ####[facility] [address] [place], [address] Glucose [Mass/Vol] 107 mg/dL High 70-99 [facility] Comment on above: Performed By: #### L 100.0500, L500.2500 ####[facility] [address] [place], [address] Potassium [Moles/Vol] 4.2 mmol/L Normal 3.3-5.1 [facility] Comment on above: Performed By: #### L 100.0500, L500.2500 ####[facility] [address] [place], [address] Sodium [Moles/Vol] 142 mmol/L Normal 133-145 [facility] Comment on above: Performed By: #### L 100.0500, L500.2500 ####[facility] [address] [place], [address] Urea nitrogen [Mass/Vol] 22 mg/dL High 4-19 [facility] Comment on above: Performed By: #### L 100.0500, L500.2500 ####[facility] [address] [place], [address] CBC-Complete Blood Cnt No Di ffon 04-24-2025 Erythrocyte distribution width (RBC) [Ratio] 12.5 % Normal 11.6-14.6 [facility] Comment on above: Performed By: #### L 100.0500, L500.2500 ####[facility] [address] [place], [address] Hematocrit (Bld) [Volume fraction] 47.1 % Normal 40-54 [facility] Comment on above: Performed By: #### L 100.0500, L500.2500 ####[facility] [address] [place], [address] Hemoglobin (Bld) [Mass/Vol] 15.5 g/dL Normal 13.0-16.5 [facility] Comment on above: Performed By: #### L 100.0500, L500.2500 ####[facility] [address] [place], [address] MCH (RBC) [Entitic mass] 31.3 pg Normal 27.0-32.0 [facility] Comment on above: Performed By: #### L 100.0500, L500.2500 ####[facility] [address] [place], [address] MCHC (RBC) [Mass/Vol] 32.9 g/dL Normal 32-36 [facility] Comment on above: Performed By: #### L 100.0500, L500.2500 ####[facility] [address] [place], [address] MCV (RBC) [Entitic vol] 95.0 fL High 80-94 [facility] Comment on above: Performed By: #### L 100.0500, L500.2500 ####[facility] [address] [place], [address] Platelet mean volume (Bld) [Entitic vol] 10.5 fL Normal 6.2-12.0 [facility] Comment on above: Performed By: #### L 100.0500, L500.2500 ####[facility] [address] [place], [address] Platelets (Bld) [#/Vol] 224 10*3/uL Normal 150-450 [facility] Comment on above: Performed By: #### L 100.0500, L500.2500 ####[facility] [address] [place], [address] RBC (Bld) [#/Vol] 4.96 10*6/uL Normal 4.6-6.2 [facility] Comment on above: Performed By: #### L 100.0500, L500.2500 ####[facility] [address] [place], [address] RDW SD 43.3 fl Normal 35.1-43.9 [facility] Comment on above: Performed By: #### L 100.0500, L500.2500 ####[facility] [address] [place], [address] WBC (Bld) [#/Vol] 6.4 10*3/uL Normal 4.4-11.0 [facility] Comment on above: Performed By: #### L 100.0500, L500.2500 ####[facility] [address] [place], [address] Carbon dioxide, total [Moles /volume] in Central venous bloodon 04-24-2025 CO2 [Moles/Vol] 24.6 mmol/L 21.0-32.0 [facility] Chloride assayon 04-24-2025 Chloride [Moles/Vol] 106 mmol/L 98-108 [facility] Erythrocyte distribution wid th ratioon 04-24-2025 Erythrocyte distribution width (RBC) [Ratio] 12.5 % 11.6-14.6 [facility] Erythrocyte distribution wid th standard deviationon 04-24-2025 Erythrocyte distribution width (RBC) [Ratio] 43.3 fl 35.1-43.9 [facility] Glomerular filtration rate ( GFR) estimation/1.73 sq m using serum, plasma, or whole bon 04-24-2025 GFR/1.73 sq M.predicted among non-blacks MDRD (S/P/Bld) [Vol rate/Area] 76 mL/min/{1.73_m2} >60 [facility] Comment on above: mL/min/1.73m2 CKD-EP I Creatinine Equation (2020) Hematocrit Auto (Bld) [Volum e fraction]on 04-24-2025 Hematocrit (Bld) [Volume fraction] 47.1 % 40-54 [facility] Hemoglobin measurementon Hemoglobin (Bld) [Mass/Vol] 15.5 g/dL 13.0-16.5 [facility] MCV (mean corpuscular volume ) determinationon 04-24-2025 MCV (RBC) [Entitic vol] 95.0 fL High 80-94 [facility] Mean corpuscular hemoglobin (MCH) determinationon 04-24-2025 MCH (RBC) [Entitic mass] 31.3 pg 27.0-32.0 [facility] Mean corpuscular hemoglobin concentration (MCHC) determinationon 04-24-2025 MCHC (RBC) [Mass/Vol] 32.9 g/dL 32-36 [facility] Mean platelet volume determi nationon 04-24-2025 Platelet mean volume (Bld) [Entitic vol] 10.5 fL 6.2-12.0 [facility] Platelet counton 04-24-2025 Platelets (Bld) [#/Vol] 224 10*3/uL 150-450 [facility] Potassium measurement (mass/ volume)on 04-24-2025 Potassium (Unsp spec) [Mass/Vol] 4.2 mmol/L 3.3-5.1 [facility] RBC Auto (Bld) [#/Vol]on RBC (Bld) [#/Vol] 4.96 10*6/uL 4.6-6.2 [facility] Serum creatinine measurement (mass/volume)on 04-24-2025 Creatinine [Mass/Vol] 1.02 mg/dL 0.70-1.20 [facility] Serum glucose measurement (m ass/volume)on 04-24-2025 Glucose [Mass/Vol] 107 mg/dL High 70-99 [facility] Serum or plasma calcium dex urement (mass/volume)on 04-24-2025 Calcium [Mass/Vol] 9.6 mg/dL 7.6-11.0 [facility] Serum or plasma urea nitroge n measurement (mass/volume)on 04-24-2025 Urea nitrogen [Mass/Vol] 22 mg/dL High 4-19 [facility] Sodium levelon 04-24-2025 Sodium [Moles/Vol] 142 mmol/L 133-145 [facility] White blood cell (WBC) count on 04-24-2025 WBC (Bld) [#/Vol] 6.4 10*3/uL 4.4-11.0 [facility] 36on 04-23-2025 36 05/01/[address] Pino Normal [facility] No Panel Informationon 04-23 Sinus Rhythm [facility] Office Visiton 04-23-2025 Follow-up visit [id number] Bhavna Roca 1945 M Date Provider Department Center 04/23/2025 48525-AVLRXMSERGIO PINO SHMG ACH LYNN SHMGCV [address] No family history on file Level of Service:76204 ME OFFICE/OUTPATIENT NEW MODERATE MDM 45 MINUTES Reason for Visit and Comments: New Patient [542] Hypertension [922608] Hyperlipidemia [182] Coronary Artery Disease [187] Normal [facility] 12 Lead EKG performed by BMS on 04-09-2025 12 Lead EKG performed by BMS Normal [facility] Cardiology Visit Reporton Cardiology Visit Report Normal [facility] Echo Complete W/ Contraston 04-08-2025 Echo Complete W/ Contrast Normal [facility] Echocardiogram study reportO rdered By: Zaki Chávez on 04-08-2025 Study report [facility] [address] [place] [address] Echo Complete W/ Contrast 04/08/25 1006 MR#: [id number] Acct: [id number] Name: BHAVNA ROCA Rep #:[id number] : 1945 79 From: Zaki Kenny Attending Dr: Sonny Gallardo NP INSURANCE VERIFICATION CLERK-C Status: REG CLI Ordering Dr: Jana Blake MD Date: 04/08/25 Location: [facility] Sex: M C Admitted: Reason For Study Reason For Study: SOB Procedure This was a 2D Doppler, Color Flow transthoracic echocardiogram. Contrast injection was performed. Exam performed in department. Left Ventricle Normal LV size. Left ventricular systolic function is normal. The left ventricular ejection fraction is 65 %. No regional wall motion abnormalities noted. Right Ventricle Normal RV size. Normal systolic function. Atria Normal left atrium. Normal right atrium. Mitral Valve Normal mitral valve. Tricuspid Valve Normal tricuspid valve. Mild (1+) tricuspid valve insufficiency. Pulmonary artery systolic pressure is 32 mmHg. Aortic Valve Trisinus/trileaflet aortic valve. Moderate diffuse aortic valve thickening. Pulmonic Valve Normal pulmonic valve. Great Vessels Normal aortic root. The pulmonary artery is normal size. Normal inferior vena cava. Pericardium/Pleural No pericardial effusion. Medication Diluted definity 1ml given slow IV push to enhance endocardial definition. MMode/2D Measurements & Calculations LVIDd: 4.1 cm IVSd: 0.91 cm Ao root diam: 3.5 cm LVIDs: 2.1 cm LVPWd: 0.88 cm RVDd: 4.6 cm FS: 48.2 % ___ LAV(MOD-bp): 34.4 ml LVAd ap4: 29.4 cm2 SV(MOD-sp4): 56.5 ml LAV(MOD-bp) Indexed: 15.2 ml/m2 LVLd ap4: 7.9 cm SI(MOD-sp4): 25.0 ml/m2 LAV(MOD-sp2): 37.3 ml EDV(MOD-sp4): 91.1 ml LAV(MOD-sp4): 29.0 ml EDV(sp4-el): 92.6 ml LVAs ap4: 16.1 cm2 LVLs ap4: 6.3 cm ESV(MOD-sp4): 34.6 ml ESV(sp4-el): 34.5 ml EF(MOD-sp4): 62.0 % EF(sp4-el): 62.7 % SV(sp4-el): 58.1 ml LA A4 area: 14.3 cm2 LA dimension(2D): 3.9 cm RA A4 area: 12.2 cm2 TAPSE: 1.5 cm Time Measurements MV dec time: 0.28 sec Doppler Measurements & Calculations MV E max joann: 67.9 cm/sec Lat Peak E' Joann: 9.4 cm/sec Med Peak E' Joann: 7.6 cm/sec MV A max joann: 88.6 cm/sec E/E' lat: 7.2 E/E' med: 8.9 MV E/A: 0.77 MV dec slope: 245.0 cm/sec2 Ao V2 max: 121.0 cm/sec LV V1 max: 95.1 cm/sec Ao max P.9 mmHg LV V1 max P.6 mmHg Ao V2 mean: 84.3 cm/sec Ao mean P.2 mmHg Ao V2 VTI: 24.1 cm PA V2 max: 132.5 cm/sec PI end-d joann: 108.2 cm/sec TR max joann: 269.6 cm/sec TR max P.1 mmHg ECHO/Echo Complete W/ Contrast Interpretation Summary Normal LV size. Left ventricular systolic function is normal. The left ventricular ejection fraction is 65 %. Pulmonary artery systolic pressure is 32 mmHg. Contrast injection was performed. Ordering Physician: Jana Blake Referring Physician: Alfredo Vasquez Performed By: Valentina Benjamin RDCS, RVT 04/08/25 4902 Date _ Zaki Chávez MD CC: [facility]ARD [facility]; Dr. Jana Blake MD; Dr. Alfredo Vasquez MD ~ Date Dictated: 04/08/25 1006 Date Transcribed: 04/08/251552 [employer] Operator: Signed [facility] Work Phone: Chest PA and Lateralon 04-01 Chest PA and Lateral Normal [facility] Cardiology Visit Reporton Cardiology Visit Report Normal [facility] Blood type and Indirect anti body screen panel (Bld)on 02-19-2025 ABO group Nom (Bld) O [facility] Blood group antibody screen Ql Negative [facility] D Ag Ql (Bld) Negative [facility] ABO group Nom (Bld) O Normal [facility] Comment on above: Order Comment: For p atient undergoing Aortic, Liver, Cardiac, or Thoracic Surgery OR If instructed by Blood Bank OR If patient hemoglobin is less than 7.5g/dl and no active type and screen. Performed By: #### 3 4532-2 #### CECILE Jimenez ([id number]) [facility] ([facility]) [id number] [place], [place] [id number] Blood group antibody screen Ql Negative [facility] Comment on above: Order Comment: For p atient undergoing Aortic, Liver, Cardiac, or Thoracic Surgery OR If instructed by Blood Bank OR If patient hemoglobin is less than 7.5g/dl and no active type and screen. Performed By: #### 3 4532-2 #### CECILE Jimenez ([id number]) [facility] ([facility]) [address] [id number] D Ag Ql (Bld) Negative [facility] Comment on above: Order Comment: For p atient undergoing Aortic, Liver, Cardiac, or Thoracic Surgery OR If instructed by Blood Bank OR If patient hemoglobin is less than 7.5g/dl and no active type and screen. Performed By: #### 3 4532-2 #### CECILE Jimenez ([id number]) [facility] ([facility]) [address] [place] [address] XR CHEST 1 VIEWon 02-19-2025 XR CHEST 1 VIEW Interpreted By: Carlos Gonzalez and Stevens Alex STUDY: XR CHEST 1 VIEW; 02/19/2025 12:39 pm INDICATION: Signs/Symptoms:s/p diaphragm pacer, r/o PTX. COMPARISON: XR chest 02/06/2025 ACCESSION NUMBER(S): [id number] ORDERING CLINICIAN: JULIA KUBENA FINDINGS: AP radiograph of the chest was provided. CARDIOMEDIASTINAL SILHOUETTE: Cardiomediastinal silhouette is unchanged in size and configuration. LUNGS: No definite evidence of pneumothorax following diaphragmatic pacer placement. Persistent elevation of the left hemidiaphragm. Patchy bibasilar atelectasis, likely postoperative in nature. ABDOMEN: Questionable trace amount of pneumoperitoneum visualized under the left hemidiaphragm. BONES: No acute osseous changes. Partially visualized cervical spinal hardware. IMPRESSION: 1. No definite evidence of pneumothorax development following diaphragmatic pacer placement. I personally reviewed the images/study and I agree with the findings as stated by Rakesh Pringle DO PGY-2. This study was interpreted at [place], [place]. MACRO: None Signed by: Carlos Gonzalez 02/19/2025 2:04 PM Dictation workstation: [id number] [facility] XR Chest Single viewon 02-19 1. No definite evidence of pneumothorax development following diaphragmatic pacer placement. I personally reviewed the images/study and I agree with the findings as stated by Rakesh Pringle DO PGY-2. This study was interpreted at [place], [place]. MACRO: None Signed by: Carlos Gonzalez 02/19/2025 2:04 PM Dictation workstation: [id number] MMODAL Interpreted By: Carlos Gonzalez and Stevens Alex STUDY: XR CHEST 1 VIEW; 02/19/2025 12:39 pm INDICATION: Signs/Symptoms:s/p diaphragm pacer, r/o PTX. COMPARISON: XR chest 02/06/2025 ACCESSION NUMBER(S): [id number] ORDERING CLINICIAN: JULIA MARTÍNEZ FINDINGS: AP radiograph of the chest was provided. CARDIOMEDIASTINAL SILHOUETTE: Cardiomediastinal silhouette is unchanged in size and configuration. LUNGS: No definite evidence of pneumothorax following diaphragmatic pacer placement. Persistent elevation of the left hemidiaphragm. Patchy bibasilar atelectasis, likely postoperative in nature. ABDOMEN: Questionable trace amount of pneumoperitoneum visualized under the left hemidiaphragm. BONES: No acute osseous changes. Partially visualized cervical spinal hardware. [facility] MMODAL Carlos Gonzalez MD - 02/19/2025 Interpreted By: Carlos Gonzalez and Stevens Alex STUDY: XR CHEST 1 VIEW; 02/19/2025 12:39 pm INDICATION: Signs/Symptoms:s/p diaphragm pacer, r/o PTX. COMPARISON: XR chest 02/06/2025 ACCESSION NUMBER(S): [id number] ORDERING CLINICIAN: JULIA MARTÍNEZ FINDINGS: AP radiograph of the chest was provided. CARDIOMEDIASTINAL SILHOUETTE: Cardiomediastinal silhouette is unchanged in size and configuration. LUNGS: No definite evidence of pneumothorax following diaphragmatic pacer placement. Persistent elevation of the left hemidiaphragm. Patchy bibasilar atelectasis, likely postoperative in nature. ABDOMEN: Questionable trace amount of pneumoperitoneum visualized under the left hemidiaphragm. BONES: No acute osseous changes. Partially visualized cervical spinal hardware. IMPRESSION: 1. No definite evidence of pneumothorax development following diaphragmatic pacer placement. I personally reviewed the images/study and I agree with the findings as stated by Rakesh Pringle DO PGY-2. This study was interpreted at [place], [place]. MACRO: None Signed by: Carlos Gonzalez 02/19/2025 2:04 PM Dictation workstation: [id number] [facility] Work Phone: Radiology Study observation (narrative) [facility] Work Phone: XR Chest Single viewOrdered By: Carlos Gonzalez on 02-19-2025 [facility] Work Phone: FL SNIFF TESTon 02-06-2025 FL SNIFF TEST Interpreted By: Marcos Villa and Omar Mahmoud STUDY: FL SNIFF TEST; 02/06/2025 9:36 am INDICATION: Signs/Symptoms:evaluat e diaphragms. ACCESSION NUMBER(S): [id number] ORDERING CLINICIAN: МАРИНА MOELLER TECHNIQUE: Fluoroscopic sniff test (diaphragmatic fluoroscopy). Fluoroscopy time 0.9 minutes. FINDINGS: RIGHT HEMIDIAPHRAGM Elevation: Negative (normal result) Normal excursion with passive breathing: Positive (normal result) Normal excursion with sniff maneuver: Positive (normal result) Paradoxical motion: Negative (normal result) LEFT HEMIDIAPHRAGM Elevation: Positive (abnormal) Normal excursion with passive breathing: Negative (abnormal) Normal excursion with sniff maneuver: Negative (abnormal result) Paradoxical motion: Negative (normal result) OTHER: N / A IMPRESSION: Elevation of the left hemidiaphragm with reduced excursion with passive breathing and sniff maneuver. I personally reviewed the images/study and I agree with the findings as stated by Bryan Bess MD (PGY-2). This study was interpreted at [place], [place]. Signed by: Marcos Villa 02/06/2025 3:44 PM Dictation workstation: [id number] Normal [facility] RF Diaphragm for motionon Elevation of the lef t hemidiaphragm with reduced excursion with passive breathing and sniff maneuver. I personally reviewed the images/study and I agree with the findings as stated by Bryan Bess MD (PGY-2). This study was interpreted at [place], [place]. Signed by: Marcos Villa 02/06/2025 3:44 PM Dictation workstation: [id number] MMODAL Interpreted By: Marcos Villa and Omar Mahmoud STUDY: FL SNIFF TEST; 02/06/2025 9:36 am INDICATION: Signs/Symptoms:evaluat e diaphragms. ACCESSION NUMBER(S): [id number] ORDERING CLINICIAN: МАРИНА MOELLER TECHNIQUE: Fluoroscopic sniff test (diaphragmatic fluoroscopy). Fluoroscopy time 0.9 minutes. FINDINGS: RIGHT HEMIDIAPHRAGM Elevation: Negative (normal result) Normal excursion with passive breathing: Positive (normal result) Normal excursion with sniff maneuver: Positive (normal result) Paradoxical motion: Negative (normal result) LEFT HEMIDIAPHRAGM Elevation: Positive (abnormal) Normal excursion with passive breathing: Negative (abnormal) Normal excursion with sniff maneuver: Negative (abnormal result) Paradoxical motion: Negative (normal result) OTHER: N / A [facility] MM[facility]AL Marcos Villa MD - 02/06/2025 Interpreted By: KasMarcos maharaj and Omar Mahmoud STUDY: FL SNIFF TEST; 02/06/2025 9:36 am INDICATION: Signs/Symptoms:evaluat e diaphragms. ACCESSION NUMBER(S): [id number] ORDERING CLINICIAN: МАРИНА MOELLER TECHNIQUE: Fluoroscopic sniff test (diaphragmatic fluoroscopy). Fluoroscopy time 0.9 minutes. FINDINGS: RIGHT HEMIDIAPHRAGM Elevation: Negative (normal result) Normal excursion with passive breathing: Positive (normal result) Normal excursion with sniff maneuver: Positive (normal result) Paradoxical motion: Negative (normal result) LEFT HEMIDIAPHRAGM Elevation: Positive (abnormal) Normal excursion with passive breathing: Negative (abnormal) Normal excursion with sniff maneuver: Negative (abnormal result) Paradoxical motion: Negative (normal result) OTHER: N / A IMPRESSION: Elevation of the left hemidiaphragm with reduced excursion with passive breathing and sniff maneuver. I personally reviewed the images/study and I agree with the findings as stated by Bryan Bess MD (PGY-2). This study was interpreted at [place], [place]. Signed by: Marcos Villa 02/06/2025 3:44 PM Dictation workstation: [id number] [facility] Work Phone: Radiology Study observation (narrative) [facility] Work Phone: RF Diaphragm for motionOrder ed By: Marcos Villa on 02-06-2025 [facility] Work Phone: XR CHEST 2 VIEWSon XR CHEST 2 VIEWS Interpreted By: Jana Castano, STUDY: XR CHEST 2 VIEWS; ; 02/06/2025 9:42 am INDICATION: Signs/Symptoms:evaluat e diaphragms. COMPARISON: 08/07/2019 ACCESSION NUMBER(S): [id number] ORDERING CLINICIAN: МАРИНА MOELLER TECHNIQUE: 2 radiographs of the chest were performed. FINDINGS: Elevation of left hemidiaphragm which is increased in the interval. There is linear areas of atelectasis in the left lung base. The right lung is clear. The heart is enlarged. The pulmonary vessels are within normal limits. There is no pneumothorax. IMPRESSION: Elevation of the left hemidiaphragm, increased from 08/07/2019. Linear areas of atelectasis in the left lung base. Mild cardiomegaly. MACRO: None Signed by: Jana Castano 02/06/2025 6:35 PM Dictation workstation: [id number] [facility] XR Chest 2 Viewson Elevation of the lef t hemidiaphragm, increased from 08/07/2019. Linear areas of atelectasis in the left lung base. Mild cardiomegaly. MACRO: None Signed by: Jana Castano 02/06/2025 6:35 PM Dictation workstation: [id number] [facility]AL Interpreted By: Jana Castano, STUDY: XR CHEST 2 VIEWS; ; 02/06/2025 9:42 am INDICATION: Signs/Symptoms:evaluat e diaphragms. COMPARISON: 08/07/2019 ACCESSION NUMBER(S): [id number] ORDERING CLINICIAN: МАРИНА MOELLER TECHNIQUE: 2 radiographs of the chest were performed. FINDINGS: Elevation of left hemidiaphragm which is increased in the interval. There is linear areas of atelectasis in the left lung base. The right lung is clear. The heart is enlarged. The pulmonary vessels are within normal limits. There is no pneumothorax. [facility] MMODAL Irving Castano MD - 02/06/2025 Interpreted By: Jana Castano, STUDY: XR CHEST 2 VIEWS; ; 02/06/2025 9:42 am INDICATION: Signs/Symptoms:evaluat e diaphragms. COMPARISON: 08/07/2019 ACCESSION NUMBER(S): [id number] ORDERING CLINICIAN: МАРИНА MOELLER TECHNIQUE: 2 radiographs of the chest were performed. FINDINGS: Elevation of left hemidiaphragm which is increased in the interval. There is linear areas of atelectasis in the left lung base. The right lung is clear. The heart is enlarged. The pulmonary vessels are within normal limits. There is no pneumothorax. IMPRESSION: Elevation of the left hemidiaphragm, increased from 08/07/2019. Linear areas of atelectasis in the left lung base. Mild cardiomegaly. MACRO: None Signed by: Jana Castano 02/06/2025 6:35 PM Dictation workstation: [id number] [facility] Work Phone: Radiology Study observation (narrative) [facility] Work Phone: XR Chest 2 ViewsOrdered By: Kendy Castano on 02-06-2025 [facility] Work Phone: Free T3on 01-31-2025 Free T3 [Mass/Vol] 3.0 pg/mL Normal 2.18-3.98 [facility] Comment on above: Order Comment: N Performed By: #### L 501.9520, L506.0400, L501.36092 ####[facility] [address] [place], [place], [id number] Free B5Iwelnfv By: Alfredo perez on 01-31-2025 Free T3 [Mass/Vol] 3.0 pg/mL 2.18-3.98 [facility] Free Triiodothyronine (T3) pg/dL 3.0 pg/mL 2.18-3.98 [facility] T4 Free Directon 01-31-2025 T4 FREE DIRECT 1.00 ng/dL Normal 0.76-1.46 [facility] Comment on above: Order Comment: N Performed By: #### L 501.9520, L506.0400, L501.57931 ####[facility] [address] [place], [place], [address] T4 freeOrdered By: Alfredo perez on 01-31-2025 Free T4 [Mass/Vol] 1.00 ng/dL 0.76-1.46 [facility] TSH DL <= 0.005 mIU/L QnOrde red By: Alfredo Vasquez on 01-31-2025 Thyroid Stimulating Hormone (TSH) 2.020 uIU/mL 0.300-4.200 [facility] TSH Qn 2.020 uIU/mL 0.300-4.200 [facility] Thyroid Stim Hormone (TSH)on 01-31-2025 TSH 2.020 uIU/mL Normal 0.300-4.200 [facility] Comment on above: Performed By: #### L 501.9520, L506.0400, L501.45323 ####[facility] [address] [place], [address] Fluoroscopy 1 Hr or Lesson 0 01-28-2025 Fluoroscopy 1 Hr or Less Normal [facility] Chest PA and Lateralon 01-22 Chest PA and Lateral Normal [facility] Cardiology Visit Reporton Cardiology Visit Report Normal [facility] Echo Completeon 11-08-2024 Echo Complete Normal [facility] 12 Lead EKGon 11-06-2024 12 Lead EKG Normal [facility] Absolute neutrophil countOrd ered By: Delmar Widl on 11-06-2024 Neutrophils (Bld) [#/Vol] 7.9 10*3/uL High 2.0-7.7 [facility] Albumin to globulin ratioOrd ered By: Delmar Wild on 11-06-2024 Albumin/Globulin [Mass ratio] 1.0 {ratio} 0.9-2.4 [facility] Basophil percentageOrdered B y: Delmar Wild on 11-06-2024 Basophils/100 WBC (Bld) 0.3 % 0-1 [facility] Bilirubin, totalOrdered By: Delmar Wild on 11-06-2024 Bilirubin [Mass/Vol] 0.80 mg/dL 0.20-1.00 [facility] Comment on above: For patients on eltr ombopag therapy, use of Dimension [place] TBIL is not recommended. Blood urea nitrogen (BUN)/cr eatinine ratioOrdered By: Delmar Wild on 11-06-2024 Urea nitrogen/Creatinine [Mass ratio] 20.3 mg/mg High 09-08 [facility] C-reactive protein measureme nt by high sensitivity methodOrdered By: Delmar Wild on 11-06-2024 C-Reactive Protein Extended Range 35.10 mg/L High 0.0-3.0 [facility] Comment on above: C-Reactive Protein ( CRP) provides useful information for thediagnosis, therapy and monitoring of inflammatory processesand associated diseases. For the evaluation of Relative Riskfor Cardiovascular Disease, a High Sensitivity CRP (HSCRP)should be ordered. CBC W/Diff, Automatedon 12- Absolute Lymph 1.25 X10 3/uL Normal 0.83-4.51 [facility] Comment on above: Performed By: #### L 501.6710, L501.4020, L101.9900, L500.4050, L100.0100, L503.6005 ####[facility] [address] [place], [address] Absolute Neut 7.9 X10 3/uL High 2.0-7.7 [facility] Comment on above: Performed By: #### L 501.6710, L501.4020, L101.9900, L500.4050, L100.0100, L503.6005 ####[facility] [address] [place], [address] Basophils/100 WBC (Bld) 0.3 % Normal 0-1 [facility] Comment on above: Performed By: #### L 501.6710, L501.4020, L101.9900, L500.4050, L100.0100, L503.6005 ####[facility] [address] [place], [address] Eosinophils/100 WBC (Bld) 1.3 % Normal 0-5 [facility] Comment on above: Performed By: #### L 501.6710, L501.4020, L101.9900, L500.4050, L100.0100, L503.6005 ####[facility] [address] [place], [address] Erythrocyte distribution width (RBC) [Ratio] 14.5 % Normal 11.6-14.6 [facility] Comment on above: Performed By: #### L 501.6710, L501.4020, L101.9900, L500.4050, L100.0100, L503.6005 ####[facility] [address] [place], [address] Hematocrit (Bld) [Volume fraction] 47.1 % Normal 40-54 [facility] Comment on above: Performed By: #### L 501.6710, L501.4020, L101.9900, L500.4050, L100.0100, L503.6005 ####[facility] [address] [place], [address] Hemoglobin (Bld) [Mass/Vol] 15.7 g/dL Normal 13.0-16.5 [facility] Comment on above: Performed By: #### L 501.6710, L501.4020, L101.9900, L500.4050, L100.0100, L503.6005 ####[facility] [address] [place], [address] IG% 0.400 Normal 0.0-0.9 [facility] Comment on above: Result Comment: IG% - Immature Granulocytes (promyelocytes, myelocytes andmetamyelocytes) > 1% indicates that a LEFT SHIFT is Present. Performed By: #### L 501.6710, L501.4020, L101.9900, L500.4050, L100.0100, L503.6005 ####[facility] [address] [place], [address] Lymphocytes/100 WBC (Bld) 12.0 % Low 19-41 [facility] Comment on above: Performed By: #### L 501.6710, L501.4020, L101.9900, L500.4050, L100.0100, L503.6005 ####[facility] [address] [place], [address] MCH (RBC) [Entitic mass] 30.0 pg Normal 27.0-32.0 [facility] Comment on above: Performed By: #### L 501.6710, L501.4020, L101.9900, L500.4050, L100.0100, L503.6005 ####[facility] [address] [place], [address] MCHC (RBC) [Mass/Vol] 33.3 g/dL Normal 32-36 [facility] Comment on above: Performed By: #### L 501.6710, L501.4020, L101.9900, L500.4050, L100.0100, L503.6005 ####[facility] [address] [place], [address] MCV (RBC) [Entitic vol] 90.1 fL Normal 80-94 [facility] Comment on above: Performed By: #### L 501.6710, L501.4020, L101.9900, L500.4050, L100.0100, L503.6005 ####[facility] [address] [place], [address] Monocytes/100 WBC (Bld) 10.0 % Normal 0-10 [facility] Comment on above: Performed By: #### L 501.6710, L501.4020, L101.9900, L500.4050, L100.0100, L503.6005 ####[facility] [address] [place], [address] Neutrophils/100 WBC (Bld) 76.0 % High 47-70 [facility] Comment on above: Performed By: #### L 501.6710, L501.4020, L101.9900, L500.4050, L100.0100, L503.6005 ####[facility] [address] [place], [address] Nucleated RBC (Bld) [#/Vol] 0 10*3/uL Normal 0-5 [facility] Comment on above: Performed By: #### L 501.6710, L501.4020, L101.9900, L500.4050, L100.0100, L503.6005 ####[facility] [address] [place], [address] Platelet mean volume (Bld) [Entitic vol] 10.3 fL Normal 6.2-12.0 [facility] Comment on above: Performed By: #### L 501.6710, L501.4020, L101.9900, L500.4050, L100.0100, L503.6005 ####[facility] [address] [place], [address] Platelets (Bld) [#/Vol] 246 10*3/uL Normal 150-450 [facility] Comment on above: Performed By: #### L 501.6710, L501.4020, L101.9900, L500.4050, L100.0100, L503.6005 ####[facility] [address] [place], [address] RBC (Bld) [#/Vol] 5.23 10*6/uL Normal 4.6-6.2 [facility] Comment on above: Performed By: #### L 501.6710, L501.4020, L101.9900, L500.4050, L100.0100, L503.6005 ####[facility] [address] [place], [address] RDW SD 47.2 fl High 35.1-43.9 [facility] Comment on above: Performed By: #### L 501.6710, L501.4020, L101.9900, L500.4050, L100.0100, L503.6005 ####[facility] [address] [place], [address] WBC (Bld) [#/Vol] 10.4 10*3/uL Normal 4.4-11.0 [facility] Comment on above: Performed By: #### L 501.6710, L501.4020, L101.9900, L500.4050, L100.0100, L503.6005 ####[facility] [address] [place], [address] CRPon 11-06-2024 C-REACTIVE PROT 35.10 mg/L High 0.0-3.0 [facility] Comment on above: Order Comment: 'TROP ' Serial specimen #1, #2 or #3: 1 Result Comment: C-Re active Protein (CRP) provides useful information for thediagnosis, therapy and monitoring of inflammatory processesand associated diseases. For the evaluation of Relative Riskfor Cardiovascular Disease, a High Sensitivity CRP (HSCRP)should be ordered. Performed By: #### L 501.6710, L501.4020, L101.9900, L500.4050, L100.0100, L503.6005 ####[facility] [address] [place], [place], [address] Carbon dioxide measurementOr dered By: Delmar Wild on 11-06-2024 CO2 [Moles/Vol] 25.0 mmol/L 21.0-32.0 [facility] Chest PA and Lateralon 11-06 Chest PA and Lateral Normal [facility] Chloride measurementOrdered By: Delmar Wild on 11-06-2024 Chloride [Moles/Vol] 106 mmol/L 98-107 [facility] Comprehensive Metabolic Prof ilon 11-06-2024 Albumin [Mass/Vol] 3.4 g/dL Normal 3.2-5.0 [facility] Comment on above: Order Comment: 'TROP ' Serial specimen #1, #2 or #3: 1 Performed By: #### L 501.6710, L501.4020, L101.9900, L500.4050, L100.0100, L503.6005 ####[facility] [address] [place], [place], [address] Albumin/Globulin [Mass ratio] 1.0 {ratio} Normal 0.9-2.4 [facility] Comment on above: Order Comment: 'TROP ' Serial specimen #1, #2 or #3: 1 Performed By: #### L 501.6710, L501.4020, L101.9900, L500.4050, L100.0100, L503.6005 ####[facility] [address] [place], [address] ALK P 96 U/L Normal 45-117 [facility] Comment on above: Order Comment: 'TROP ' Serial specimen #1, #2 or #3: 1 Performed By: #### L 501.6710, L501.4020, L101.9900, L500.4050, L100.0100, L503.6005 ####[facility] [address] [place], [address] ALT [Catalytic activity/Vol] 32 U/L Normal 16-61 [facility] Comment on above: Order Comment: 'TROP ' Serial specimen #1, #2 or #3: 1 Performed By: #### L 501.6710, L501.4020, L101.9900, L500.4050, L100.0100, L503.6005 ####[facility] [address] [place], [address] AST [Catalytic activity/Vol] 22 U/L Normal 15-37 [facility] Comment on above: Order Comment: 'TROP ' Serial specimen #1, #2 or #3: 1 Performed By: #### L 501.6710, L501.4020, L101.9900, L500.4050, L100.0100, L503.6005 ####[facility] [address] [place], [address] Bilirubin [Mass/Vol] 0.80 mg/dL Normal 0.20-1.00 [facility] Comment on above: Order Comment: 'TROP ' Serial specimen #1, #2 or #3: 1 Result Comment: For patients on eltrombopag therapy, use of Dimension [place] TBIL is not recommended. Performed By: #### L 501.6710, L501.4020, L101.9900, L500.4050, L100.0100, L503.6005 ####[facility] [address] [place], [address] BUN/CRE 20.3 RATIO High 10-20 [facility] Comment on above: Order Comment: 'TROP ' Serial specimen #1, #2 or #3: 1 Performed By: #### L 501.6710, L501.4020, L101.9900, L500.4050, L100.0100, L503.6005 ####[facility] [address] [place], [address] CA,Total 9.4 mg/dL Normal 8.5-10.1 [facility] Comment on above: Order Comment: 'TROP ' Serial specimen #1, #2 or #3: 1 Performed By: #### L 501.6710, L501.4020, L101.9900, L500.4050, L100.0100, L503.6005 ####[facility] [address] [place], [address] Chloride [Moles/Vol] 106 mmol/L Normal 98-107 [facility] Comment on above: Order Comment: 'TROP ' Serial specimen #1, #2 or #3: 1 Performed By: #### L 501.6710, L501.4020, L101.9900, L500.4050, L100.0100, L503.6005 ####[facility] [address] [place], [address] CO2 [Moles/Vol] 25.0 mmol/L Normal 21.0-32.0 [facility] Comment on above: Order Comment: 'TROP ' Serial specimen #1, #2 or #3: 1 Performed By: #### L 501.6710, L501.4020, L101.9900, L500.4050, L100.0100, L503.6005 ####[facility] [address] [place], [address] Creatinine [Mass/Vol] 1.28 mg/dL Normal 0.70-1.30 [facility] Comment on above: Order Comment: 'TROP ' Serial specimen #1, #2 or #3: 1 Result Comment: The validity of the calculated GFR GFRAA in patients over70 years has not been determined. Clinical correlation isessential. Performed By: #### L 501.6710, L501.4020, L101.9900, L500.4050, L100.0100, L503.6005 ####[facility] [address] [place], [address] ECRCL 61.35 ml/min Normal [facility] Comment on above: Order Comment: 'TROP ' Serial specimen #1, #2 or #3: 1 Performed By: #### L 501.6710, L501.4020, L101.9900, L500.4050, L100.0100, L503.6005 ####[facility] [address] [place], [address] EST GFR - AA 70 mL/min Normal >60 [facility] Comment on above: Order Comment: 'TROP ' Serial specimen #1, #2 or #3: 1 Result Comment: Afri can [place] GFR Calc Performed By: #### L 501.6710, L501.4020, L101.9900, L500.4050, L100.0100, L503.6005 ####[facility] [address] [place], [address] GAP 7 Normal 5-15 [facility] Comment on above: Order Comment: 'TROP ' Serial specimen #1, #2 or #3: 1 Performed By: #### L 501.6710, L501.4020, L101.9900, L500.4050, L100.0100, L503.6005 ####[facility] [address] [place], [address] GFR/1.73 sq M.predicted among non-blacks MDRD (S/P/Bld) [Vol rate/Area] 58 mL/min/{1.73_m2} Low >60 [facility] Comment on above: Order Comment: 'TROP ' Serial specimen #1, #2 or #3: 1 Result Comment: Non- GFR Calc Performed By: #### L 501.6710, L501.4020, L101.9900, L500.4050, L100.0100, L503.6005 ####[facility] [address] [place], [address] Globulin (S) [Mass/Vol] 3.3 g/dL Normal 2.2-4.2 [facility] Comment on above: Order Comment: 'TROP ' Serial specimen #1, #2 or #3: 1 Performed By: #### L 501.6710, L501.4020, L101.9900, L500.4050, L100.0100, L503.6005 ####[facility] [address] [place], [address] Glucose [Mass/Vol] 135 mg/dL High 74-106 [facility] Comment on above: Order Comment: 'TROP ' Serial specimen #1, #2 or #3: 1 Result Comment: Fast ing Glucose result greater than or equal to 126 mg/dLsuggests DIABETES MELLITUS per A.D.A. criteria. Performed By: #### L 501.6710, L501.4020, L101.9900, L500.4050, L100.0100, L503.6005 ####[facility] [address] [place], [address] Potassium [Moles/Vol] 4.2 mmol/L Normal 3.5-5.1 [facility] Comment on above: Order Comment: 'TROP ' Serial specimen #1, #2 or #3: 1 Performed By: #### L 501.6710, L501.4020, L101.9900, L500.4050, L100.0100, L503.6005 ####[facility] [address] [place], [place], [address] Sodium [Moles/Vol] 138 mmol/L Normal 136-145 [facility] Comment on above: Order Comment: 'TROP ' Serial specimen #1, #2 or #3: 1 Performed By: #### L 501.6710, L501.4020, L101.9900, L500.4050, L100.0100, L503.6005 ####[facility] [address] [place], [address] T PROT 6.7 g/dL Normal 6.4-8.2 [facility] Comment on above: Order Comment: 'TROP ' Serial specimen #1, #2 or #3: 1 Performed By: #### L 501.6710, L501.4020, L101.9900, L500.4050, L100.0100, L503.6005 ####[facility] [address] [place], [place], [address] Urea nitrogen [Mass/Vol] 26 mg/dL High 06-06 [facility] Comment on above: Order Comment: 'TROP ' Serial specimen #1, #2 or #3: 1 Performed By: #### L 501.6710, L501.4020, L101.9900, L500.4050, L100.0100, L503.6005 ####[facility] [address] [place], [address] Emergency Department Summary on 11-06-2024 Emergency Department Summary Normal [facility] Eosinophil percentageOrdered By: Delmar Wild on 11-06-2024 Eosinophils/100 WBC (Bld) 1.3 % 0-5 [facility] Erythrocyte Sed Rateon 11-06 SED RATE 7 mm/hr Normal 0-20 [facility] Comment on above: Performed By: #### L 501.6710, L501.4020, L101.9900, L500.4050, L100.0100, L503.6005 ####[facility] [address] [place], [address] Erythrocyte distribution wid th ratioOrdered By: Delmarromeo Wild on 11-06-2024 Erythrocyte distribution width (RBC) [Ratio] 14.5 % 11.6-14.6 [facility] Erythrocyte distribution wid th standard deviationOrdered By: Delmarromeo Wild on 11-06-2024 Erythrocyte distribution width (RBC) [Entitic vol] 47.2 fL High 35.1-43.9 [facility] Erythrocyte sedimentation ra teOrdered By: Delmarromeo Wild on 11-06-2024 ESR (Bld) [Velocity] 7 mm/h 0-20 [facility] Estimated glomerular filtrat ion rate (GFR) AmericanOrdered By: Delmar Wild on 11-06-2024 Estimated GFR (MDRD) Amer 70 mL/min >60 [facility] Comment on above: GFR Calc Estimation of creatinine swathi aranceOrdered By: Delmarromeo Wild on 11-06-2024 Estimated Creatinine Clearance Calc 61.35 ml/min [facility] Glomerular filtration rate ( GFR) estimationOrdered By: Delmarromeo Wild on 11-06-2024 Estimated GFR (MDRD) Non-Af Amer 58 mL/min Low >60 [facility] Comment on above: Non- GFR Calc Glucose measurementOrdered B y: Delmar Wild on 11-06-2024 Glucose [Mass/Vol] 135 mg/dL High 74-106 [facility] Comment on above: Fasting Glucose resu lt greater than or equal to 126 mg/dL suggests DIABETES MELLITUS per A.D.A. criteria. Hematocrit Auto (Bld) [Volum e fraction]Ordered By: Delmar Wild on 11-06-2024 Hematocrit (Bld) [Volume fraction] 47.1 % 40-54 [facility] Hemoglobin measurementOrdere d By: Delmar Wild on 11-06-2024 Hemoglobin (Bld) [Mass/Vol] 15.7 g/dL 13.0-16.5 [facility] Immature granulocytes/100 WB C Auto (Bld)Ordered By: Delmar Wild on 11-06-2024 Immature granulocytes/100 WBC (Bld) 0.400 % 0.0-0.9 [facility] Comment on above: IG% - Immature Granu locytes (promyelocytes, myelocytes and metamyelocytes) > 1% indicates that a LEFT SHIFT is Present. Influenza virus A and B and SARS-CoV-2 (COVID-19) and Respiratory syncytial virus RNAOrdered By: Delmar Wild on 11-06-2024 SARS-CoV-2 (COVID-19) RNA RAINA+probe Ql (Unsp spec) [facility] L501.4020on 11-06-2024 TROPONIN-I HS 6 pg/mL Normal 3.0-78.0 [facility] Comment on above: Order Comment: 'TROP ' Serial specimen #1, #2 or #3: 1 Result Comment: Plea se Note: New Test Units and Gender Specific Reference Ranges. For more information see Policy Stat Procedure [place] High Sensitivity Troponin (TNIH) and attachments. Performed By: #### L 501.6710, L501.4020, L101.9900, L500.4050, L100.0100, L503.6005 ####[facility] [address] [place], [place], [id number] Laboratory - Chemistry and C hemistry - challengeOrdered By: Delmar Wild on 11-06-2024 AST [Catalytic activity/Vol] 22 U/L 15-37 [facility] Lactic Acidon 11-06-2024 Lactate [Moles/Vol] 1.9 mmol/L Normal 0.4-1.9 [facility] Comment on above: Order Comment: Y Performed By: #### L 501.6710, L501.4020, L101.9900, L500.4050, L100.0100, L503.6005 ####[facility] [address] [place], [place], [id number] Lactic acid measurementOrder ed By: Delmar Wild on 11-06-2024 Lactate [Moles/Vol] 1.9 mmol/L 0.4-2.0 [facility] Lymphocytes Auto (Unsp spec) [#/Vol]Ordered By: Delmar Wild on 11-06-2024 Lymphocytes (Bld) [#/Vol] 1.25 10*3/uL 0.83-4.51 [facility] Lymphocytes/100 WBC Auto (Un sp spec)Ordered By: Delmar Wild on 11-06-2024 Lymphocytes/100 WBC (Bld) 12.0 % Low 19-41 [facility] M100.678on 11-06-2024 M100.678 Pending SARS-CoV-2 (COVID 19) Negative INFLUENZA A Negative INFLUENZA B Negative RSV PCR Negative Normal [facility] Comment on above: Performed By: #### M 100.678 ####[facility] [address] [place], [address] MCV (mean corpuscular volume ) determinationOrdered By: Delmar Wild on 11-06-2024 MCV (RBC) [Entitic vol] 90.1 fL 80-94 [facility] Mean corpuscular hemoglobin (MCH) determinationOrdered By: Delmar Wild on 11-06-2024 MCH (RBC) [Entitic mass] 30.0 pg 27.0-32.0 [facility] Mean corpuscular hemoglobin concentration (MCHC) determinationOrdered By: Delmar Wild on 11-06-2024 MCHC (RBC) [Mass/Vol] 33.3 g/dL 32-36 [facility] Mean platelet volume determi nationOrdered By: Delmar Wild on 11-06-2024 Platelet mean volume (Bld) [Entitic vol] 10.3 fL 6.2-12.0 [facility] Monocyte percentageOrdered B y: Delmar Wild on 11-06-2024 Monocytes/100 WBC (Bld) 10.0 % 0-10 [facility] Neutrophil percentageOrdered By: Delmar Wild on 11-06-2024 Neutrophils/100 WBC (Bld) 76.0 % High 47-70 [facility] Nucleated red blood cell per centageOrdered By: Delmar Wild on 11-06-2024 Nucleated RBC/100 WBC (Bld) [Ratio] 0 % 0-5 [facility] Platelet countOrdered By: romeo Wild on 11-06-2024 Platelets (Bld) [#/Vol] 246 10*3/uL 150-450 [facility] Potassium measurementOrdered By: Delmarromeo Ledezmao on 11-06-2024 Potassium [Moles/Vol] 4.2 mmol/L 3.5-5.1 [facility] RBC Auto (Bld) [#/Vol]Ordere d By: Delmar Ledezmao on 11-06-2024 RBC (Bld) [#/Vol] 5.23 10*6/uL 4.6-6.2 [facility] Serum anion gap measurementO rdered By: Delmarromeo Ledezmao on 11-06-2024 Anion gap [Moles/Vol] 7 mmol/L 5-15 [facility] Serum globulin measurementOr dered By: Delmarromeo Ledezmao on 11-06-2024 Globulin (S) [Mass/Vol] 3.3 g/dL 2.2-4.2 [facility] Serum or plasma alanine allen otransferase (ALT) measurementOrdered By: Delmarromeo Ledezmao on 11-06-2024 ALT [Catalytic activity/Vol] 32 U/L 16-61 [facility] Serum or plasma albumin dex urement (mass/volume)Ordered By: Delmarromeo Ledezmao on 11-06-2024 Albumin [Mass/Vol] 3.4 g/dL 3.2-5.0 [facility] Serum or plasma alkaline sarahy sphatase measurementOrdered By: [facility] [place] on 11-06-2024 ALP [Catalytic activity/Vol] 96 U/L 45-117 [facility] Serum or plasma calcium dex urement (mass/volume)Ordered By: Delmarromeo Ledezmao on 11-06-2024 Calcium [Mass/Vol] 9.4 mg/dL 8.5-10.1 [facility] Serum or plasma creatinine m easurement (mass/volume)Ordered By: Delmarromeo Ledezmao on 11-06-2024 Creatinine [Mass/Vol] 1.28 mg/dL 0.70-1.30 [facility] Comment on above: The validity of the calculated GFR & GFRAA in patients over 70 years has not been determined. Clinical correlation is essential. Serum or plasma urea nitroge n measurement (mass/volume)Ordered By: Delmar Wild on 11-06-2024 Urea nitrogen [Mass/Vol] 26 mg/dL High - [facility] Sodium levelOrdered By: Delmar Wild on 11-06-2024 Sodium [Moles/Vol] 138 mmol/L 136-145 [facility] Total proteinOrdered By: Delmar Wild on 11-06-2024 Protein [Mass/Vol] 6.7 g/dL 6.4-8.2 [facility] Troponin IOrdered By: Delmar barrera on 11-06-2024 Troponin I High Sensitivity 6 pg/mL 3.0-78.0 [facility] Comment on above: Please Note: New Hamida t Units and Gender Specific Reference Ranges. For more information see Policy Stat Procedure [place] High Sensitivity Troponin (TNIH) and attachments. White blood cell (WBC) count Ordered By: Delmar Wild on 11-06-2024 WBC (Bld) [#/Vol] 10.4 10*3/uL 4.4-11.0 [facility] BNP,B-Type NATRIURETIC PEPTI Praveen 11-04-2024 Natriuretic peptide B (Bld) [Mass/Vol] 38.6 pg/mL Normal 0-100 [facility] Comment on above: Performed By: #### L 100.0100, L503.6620, L500.2500, L101.9900 ####[facility] [address] [place], [place], [id number] Absolute neutrophil countOrd ered By: Almaz Valladares on 11-01-2024 Neutrophils (Bld) [#/Vol] 3.9 10*3/uL 2.0-7.7 [facility] BNP (brain natriuretic pepti de measurement)Ordered By: Almaz Valladares on 11-01-2024 Natriuretic peptide B (Bld) [Mass/Vol] 38.6 pg/mL 0- [facility] Basic Metabolic Profile (BMP )on 11-01-2024 BUN/CRE 19.8 RATIO Normal -20 [facility] Comment on above: Performed By: #### L 100.0100, L503.6620, L500.2500, L101.9900 ####[facility] [address] [place], [address] CA,Total 9.7 mg/dL Normal 8.5-10.1 [facility] Comment on above: Performed By: #### L 100.0100, L503.6620, L500.2500, L101.9900 ####[facility] [address] [place], [address] Chloride [Moles/Vol] 107 mmol/L Normal 98-107 [facility] Comment on above: Performed By: #### L 100.0100, L503.6620, L500.2500, L101.9900 ####[facility] [address] [place], [address] CO2 [Moles/Vol] 29.0 mmol/L Normal 21.0-32.0 [facility] Comment on above: Performed By: #### L 100.0100, L503.6620, L500.2500, L101.9900 ####[facility] [address] [place], [address] Creatinine [Mass/Vol] 1.06 mg/dL Normal 0.70-1.30 [facility] Comment on above: Result Comment: The validity of the calculated GFR GFRAA in patients over70 years has not been determined. Clinical correlation isessential. Performed By: #### L 100.0100, L503.6620, L500.2500, L101.9900 ####[facility] [address] [place], [address] EST GFR - AA 87 mL/min Normal >60 [facility] Comment on above: Result Comment: Afri can [place]an GFR Calc Performed By: #### L 100.0100, L503.6620, L500.2500, L101.9900 ####[facility] [address] [place], [address] GAP 2 Low 5-15 [facility] Comment on above: Performed By: #### L 100.0100, L503.6620, L500.2500, L101.9900 ####[facility] [address] [place], [address] GFR/1.73 sq M.predicted among non-blacks MDRD (S/P/Bld) [Vol rate/Area] 72 mL/min/{1.73_m2} Normal >60 [facility] Comment on above: Result Comment: Non- GFR Calc Performed By: #### L 100.0100, L503.6620, L500.2500, L101.9900 ####[facility] [address] [place], [address] Glucose [Mass/Vol] 101 mg/dL Normal 74-106 [facility] Comment on above: Result Comment: Fast ing Glucose result from 100 to 125 mg/dLsuggests IMPAIRED HOMEOSTASIS per A.D.A. criteria. Performed By: #### L 100.0100, L503.6620, L500.2500, L101.9900 ####[facility] [address] [place], [address] Potassium [Moles/Vol] 4.6 mmol/L Normal 3.5-5.1 [facility] Comment on above: Performed By: #### L 100.0100, L503.6620, L500.2500, L101.9900 ####[facility] [address] [place], [address] Sodium [Moles/Vol] 138 mmol/L Normal 136-145 [facility] Comment on above: Performed By: #### L 100.0100, L503.6620, L500.2500, L101.9900 ####[facility] [address] [place], [address] Urea nitrogen [Mass/Vol] 21 mg/dL High 7-18 [facility] Comment on above: Performed By: #### L 100.0100, L503.6620, L500.2500, L101.9900 ####[facility] [address] [place], [address] Basophil percentageOrdered B y: Almaz Valladares on 11-01-2024 Basophils/100 WBC (Bld) 0.7 % 0-1 [facility] Blood urea nitrogen (BUN)/cr eatinine ratioOrdered By: Almaz Valladares on 11-01-2024 Urea nitrogen/Creatinine [Mass ratio] 19.8 mg/mg - [facility] CBC W/Diff, Automatedon 10-20-2023 Absolute Lymph 1.07 X10 3/uL Normal 0.83-4.51 [facility] Comment on above: Performed By: #### L 100.0100, L503.6620, L500.2500, L101.9900 ####[facility] [address] [place], [address] Absolute Neut 3.9 X10 3/uL Normal 2.0-7.7 [facility] Comment on above: Performed By: #### L 100.0100, L503.6620, L500.2500, L101.9900 ####[facility] [address] [place], [address] Basophils/100 WBC (Bld) 0.7 % Normal 0-1 [facility] Comment on above: Performed By: #### L 100.0100, L503.6620, L500.2500, L101.9900 ####[facility] [address] [place], [address] Eosinophils/100 WBC (Bld) 4.5 % Normal 0-5 [facility] Comment on above: Performed By: #### L 100.0100, L503.6620, L500.2500, L101.9900 ####[facility] [address] [place], [address] Erythrocyte distribution width (RBC) [Ratio] 14.4 % Normal 11.6-14.6 [facility] Comment on above: Performed By: #### L 100.0100, L503.6620, L500.2500, L101.9900 ####[facility] [address] [place], [address] Hematocrit (Bld) [Volume fraction] 48.0 % Normal 40-54 [facility] Comment on above: Performed By: #### L 100.0100, L503.6620, L500.2500, L101.9900 ####[facility] [address] [place], [address] Hemoglobin (Bld) [Mass/Vol] 15.8 g/dL Normal 13.0-16.5 [facility] Comment on above: Performed By: #### L 100.0100, L503.6620, L500.2500, L101.9900 ####[facility] [address] [place], [address] IG% 0.500 Normal 0.0-0.9 [facility] Comment on above: Result Comment: IG% - Immature Granulocytes (promyelocytes, myelocytes andmetamyelocytes) > 1% indicates that a LEFT SHIFT is Present. Performed By: #### L 100.0100, L503.6620, L500.2500, L101.9900 ####[facility] [address] [place], [address] Lymphocytes/100 WBC (Bld) 17.7 % Low 19-41 [facility] Comment on above: Performed By: #### L 100.0100, L503.6620, L500.2500, L101.9900 ####[facility] [address] [place], [address] MCH (RBC) [Entitic mass] 29.8 pg Normal 27.0-32.0 [facility] Comment on above: Performed By: #### L 100.0100, L503.6620, L500.2500, L101.9900 ####[facility] [address] [place], [address] MCHC (RBC) [Mass/Vol] 32.9 g/dL Normal 32-36 [facility] Comment on above: Performed By: #### L 100.0100, L503.6620, L500.2500, L101.9900 ####[facility] [address] [place], [address] MCV (RBC) [Entitic vol] 90.4 fL Normal 80-94 [facility] Comment on above: Performed By: #### L 100.0100, L503.6620, L500.2500, L101.9900 ####[facility] [address] [place], [address] Monocytes/100 WBC (Bld) 13.2 % High 0-10 [facility] Comment on above: Performed By: #### L 100.0100, L503.6620, L500.2500, L101.9900 ####[facility] [address] [place], [address] Neutrophils/100 WBC (Bld) 63.4 % Normal 47-70 [facility] Comment on above: Performed By: #### L 100.0100, L503.6620, L500.2500, L101.9900 ####[facility] [address] [place], [address] Nucleated RBC (Bld) [#/Vol] 0 10*3/uL Normal 0-5 [facility] Comment on above: Performed By: #### L 100.0100, L503.6620, L500.2500, L101.9900 ####[facility] [address] [place], [address] Platelet mean volume (Bld) [Entitic vol] 10.0 fL Normal 6.2-12.0 [facility] Comment on above: Performed By: #### L 100.0100, L503.6620, L500.2500, L101.9900 ####[facility] [address] [place], [address] Platelets (Bld) [#/Vol] 237 10*3/uL Normal 150-450 [facility] Comment on above: Performed By: #### L 100.0100, L503.6620, L500.2500, L101.9900 ####[facility] [address] [place], [address] RBC (Bld) [#/Vol] 5.31 10*6/uL Normal 4.6-6.2 [facility] Comment on above: Performed By: #### L 100.0100, L503.6620, L500.2500, L101.9900 ####[facility] [address] [place], [address] RDW SD 47.3 fl High 35.1-43.9 [facility] Comment on above: Performed By: #### L 100.0100, L503.6620, L500.2500, L101.9900 ####[facility] [address] [place], [address] WBC (Bld) [#/Vol] 6.1 10*3/uL Normal 4.4-11.0 [facility] Comment on above: Performed By: #### L 100.0100, L503.6620, L500.2500, L101.9900 ####[facility] [address] [place], [address] Carbon dioxide measurementOr dered By: Almaz Valladares on 11-01-2024 CO2 [Moles/Vol] 29.0 mmol/L 21.0-32.0 [facility] Chest PA and Lateralon 11-01 Chest PA and Lateral Normal [facility] Chloride measurementOrdered By: Almaz Valladares on 11-01-2024 Chloride [Moles/Vol] 107 mmol/L 98-107 [facility] Eosinophil percentageOrdered By: Almaz Valladares on 11-01-2024 Eosinophils/100 WBC (Bld) 4.5 % 0-5 [facility] Erythrocyte Sed Rateon 11-01 SED RATE 3 mm/hr Normal 0-20 [facility] Comment on above: Performed By: #### L 100.0100, L503.6620, L500.2500, L101.9900 ####[facility] [address] [place], [address] Erythrocyte distribution wid th ratioOrdered By: Almaz Valladares on 11-01-2024 Erythrocyte distribution width (RBC) [Ratio] 14.4 % 11.6-14.6 [facility] Erythrocyte distribution wid th standard deviationOrdered By: Almaz Valladares on 11-01-2024 Erythrocyte distribution width (RBC) [Entitic vol] 47.3 fL High 35.1-43.9 [facility] Erythrocyte sedimentation ra teOrdered By: Almaz Valladares on 11-01-2024 ESR (Bld) [Velocity] 3 mm/h 0-20 [facility] Estimated glomerular filtrat ion rate (GFR) AmericanOrdered By: Almaz Valladares on 11-01-2024 Estimated GFR (MDRD) Amer 87 mL/min >60 [facility] Comment on above: GFR Calc Glomerular filtration rate ( GFR) estimationOrdered By: Almaz Valladares on 11-01-2024 Estimated GFR (MDRD) Non-Af Amer 72 mL/min >60 [facility] Comment on above: Non- GFR Calc Glucose measurementOrdered B y: Almaz Valladares on 11-01-2024 Glucose [Mass/Vol] 101 mg/dL 74-106 [facility] Comment on above: Fasting Glucose resu lt from 100 to 125 mg/dL suggests IMPAIRED HOMEOSTASIS per A.D.A. criteria. Hematocrit Auto (Bld) [Volum e fraction]Ordered By: Almaz Valladares on 11-01-2024 Hematocrit (Bld) [Volume fraction] 48.0 % 40-54 [facility] Hemoglobin measurementOrdere d By: Almaz Valladares on 11-01-2024 Hemoglobin (Bld) [Mass/Vol] 15.8 g/dL 13.0-16.5 [facility] Immature granulocytes/100 WB C Auto (Bld)Ordered By: Almaz Valladares on 11-01-2024 Immature granulocytes/100 WBC (Bld) 0.500 % 0.0-0.9 [facility] Comment on above: IG% - Immature Granu locytes (promyelocytes, myelocytes and metamyelocytes) > 1% indicates that a LEFT SHIFT is Present. Lymphocytes Auto (Unsp spec) [#/Vol]Ordered By: Almaz Valladares on 11-01-2024 Lymphocytes (Bld) [#/Vol] 1.07 10*3/uL 0.83-4.51 [facility] Lymphocytes/100 WBC Auto (Un sp spec)Ordered By: Almaz Valladares on 11-01-2024 Lymphocytes/100 WBC (Bld) 17.7 % Low 19-41 [facility] MCV (mean corpuscular volume ) determinationOrdered By: Almaz Valladares on 11-01-2024 MCV (RBC) [Entitic vol] 90.4 fL 80-94 [facility] Mean corpuscular hemoglobin (MCH) determinationOrdered By: Almaz Valladares on 11-01-2024 MCH (RBC) [Entitic mass] 29.8 pg 27.0-32.0 [facility] Mean corpuscular hemoglobin concentration (MCHC) determinationOrdered By: Almaz Valladares on 11-01-2024 MCHC (RBC) [Mass/Vol] 32.9 g/dL 32-36 [facility] Mean platelet volume determi nationOrdered By: Almaz Valladares on 11-01-2024 Platelet mean volume (Bld) [Entitic vol] 10.0 fL 6.2-12.0 [facility] Monocyte percentageOrdered B y: Almaz Valladares on 11-01-2024 Monocytes/100 WBC (Bld) 13.2 % High 0-10 [facility] Neutrophil percentageOrdered By: Almaz Valladares on 11-01-2024 Neutrophils/100 WBC (Bld) 63.4 % 47-70 [facility] Nucleated red blood cell per centageOrdered By: Almaz Valladares on 11-01-2024 Nucleated RBC/100 WBC (Bld) [Ratio] 0 % 0-5 [facility] Platelet countOrdered By: Richa Valladares on 11-01-2024 Platelets (Bld) [#/Vol] 237 10*3/uL 150-450 [facility] Potassium measurementOrdered By: Almaz Valladares on 11-01-2024 Potassium [Moles/Vol] 4.6 mmol/L 3.5-5.1 [facility] RBC Auto (Bld) [#/Vol]Ordere d By: Almaz Valladares on 11-01-2024 RBC (Bld) [#/Vol] 5.31 10*6/uL 4.6-6.2 [facility] Serum anion gap measurementO rdered By: Almaz Valladares on 11-01-2024 Anion gap [Moles/Vol] 2 mmol/L Low 5-15 [facility] Serum or plasma calcium dex urement (mass/volume)Ordered By: Almaz Valladares on 11-01-2024 Calcium [Mass/Vol] 9.7 mg/dL 8.5-10.1 [facility] Serum or plasma creatinine m easurement (mass/volume)Ordered By: Almaz Valladares on 11-01-2024 Creatinine [Mass/Vol] 1.06 mg/dL 0.70-1.30 [facility] Comment on above: The validity of the calculated GFR & GFRAA in patients over 70 years has not been determined. Clinical correlation is essential. Serum or plasma urea nitroge n measurement (mass/volume)Ordered By: Almaz Valladares on 11-01-2024 Urea nitrogen [Mass/Vol] 21 mg/dL High 7-18 [facility] Sodium levelOrdered By: Pérez Valladares on 11-01-2024 Sodium [Moles/Vol] 138 mmol/L 136-145 [facility] White blood cell (WBC) count Ordered By: Almaz Valladares on 11-01-2024 WBC (Bld) [#/Vol] 6.1 10*3/uL 4.4-11.0 [facility] Absolute neutrophil countOrd ered By: Jana Blake on 10-22-2024 Neutrophils (Bld) [#/Vol] 5.9 10*3/uL 2.0-7.7 [facility] Basophil percentageOrdered B y: Jana Blake on 10-22-2024 Basophils/100 WBC (Bld) 0.6 % 0-1 [facility] CBC W/Diff, Automatedon 12- Absolute Lymph 1.02 X10 3/uL Normal 0.83-4.51 [facility] Comment on above: Performed By: #### L 100.0100 ####[facility] [address] [place], [address] Absolute Neut 5.9 X10 3/uL Normal 2.0-7.7 [facility] Comment on above: Performed By: #### L 100.0100 ####[facility] [address] [place], [address] Basophils/100 WBC (Bld) 0.6 % Normal 0-1 [facility] Comment on above: Performed By: #### L 100.0100 ####[facility] [address] [place], [address] Eosinophils/100 WBC (Bld) 2.8 % Normal 0-5 [facility] Comment on above: Performed By: #### L 100.0100 ####[facility] [address] [place], [address] Erythrocyte distribution width (RBC) [Ratio] 14.0 % Normal 11.6-14.6 [facility] Comment on above: Performed By: #### L 100.0100 ####[facility] [address] [place], [address] Hematocrit (Bld) [Volume fraction] 48.9 % Normal 40-54 [facility] Comment on above: Performed By: #### L 100.0100 ####[facility] [address] [place], [address] Hemoglobin (Bld) [Mass/Vol] 15.5 g/dL Normal 13.0-16.5 [facility] Comment on above: Performed By: #### L 100.0100 ####[facility] [address] [place], [address] IG% 0.500 Normal 0.0-0.9 [facility] Comment on above: Result Comment: IG% - Immature Granulocytes (promyelocytes, myelocytes andmetamyelocytes) > 1% indicates that a LEFT SHIFT is Present. Performed By: #### L 100.0100 ####[facility] [address] [place], [address] Lymphocytes/100 WBC (Bld) 12.8 % Low 19-41 [facility] Comment on above: Performed By: #### L 100.0100 ####[facility] [address] [place], [address] MCH (RBC) [Entitic mass] 29.0 pg Normal 27.0-32.0 [facility] Comment on above: Performed By: #### L 100.0100 ####[facility] [address] [place], [address] MCHC (RBC) [Mass/Vol] 31.7 g/dL Low 32-36 [facility] Comment on above: Performed By: #### L 100.0100 ####[facility] [address] [place], [address] MCV (RBC) [Entitic vol] 91.4 fL Normal 80-94 [facility] Comment on above: Performed By: #### L 100.0100 ####[facility] [address] [place], [address] Monocytes/100 WBC (Bld) 9.4 % Normal 0-10 [facility] Comment on above: Performed By: #### L 100.0100 ####[facility] [address] [place], [address] Neutrophils/100 WBC (Bld) 73.9 % High 47-70 [facility] Comment on above: Performed By: #### L 100.0100 ####[facility] [address] [place], [address] Nucleated RBC (Bld) [#/Vol] 0 10*3/uL Normal 0-5 [facility] Comment on above: Performed By: #### L 100.0100 ####[facility] [address] [place], [address] Platelet mean volume (Bld) [Entitic vol] 10.0 fL Normal 6.2-12.0 [facility] Comment on above: Performed By: #### L 100.0100 ####[facility] [address] [place], [address] Platelets (Bld) [#/Vol] 253 10*3/uL Normal 150-450 [facility] Comment on above: Performed By: #### L 100.0100 ####[facility] [address] [place], [address] RBC (Bld) [#/Vol] 5.35 10*6/uL Normal 4.6-6.2 [facility] Comment on above: Performed By: #### L 100.0100 ####[facility] [address] [place], [place], [address] RDW SD 47.3 fl High 35.1-43.9 [facility] Comment on above: Performed By: #### L 100.0100 ####[facility] [address] [place], [address] WBC (Bld) [#/Vol] 8.0 10*3/uL Normal 4.4-11.0 [facility] Comment on above: Performed By: #### L 100.0100 ####[facility] [address] [place], [address] Eosinophil percentageOrdered By: Jana Blake on 10-22-2024 Eosinophils/100 WBC (Bld) 2.8 % 0-5 [facility] Erythrocyte distribution wid th ratioOrdered By: Jana Blake on 10-22-2024 Erythrocyte distribution width (RBC) [Ratio] 14.0 % 11.6-14.6 [facility] Erythrocyte distribution wid th standard deviationOrdered By: Jana Blake on 10-22-2024 Erythrocyte distribution width (RBC) [Entitic vol] 47.3 fL High 35.1-43.9 [facility] Hematocrit Auto (Bld) [Volum e fraction]Ordered By: Jana Blake on 10-22-2024 Hematocrit (Bld) [Volume fraction] 48.9 % 40-54 [facility] Hemoglobin measurementOrdere d By: Jana Blake on 10-22-2024 Hemoglobin (Bld) [Mass/Vol] 15.5 g/dL 13.0-16.5 [facility] Immature granulocytes/100 WB C Auto (Bld)Ordered By: Jana Blake on 10-22-2024 Immature granulocytes/100 WBC (Bld) 0.500 % 0.0-0.9 [facility] Comment on above: IG% - Immature Granu locytes (promyelocytes, myelocytes and metamyelocytes) > 1% indicates that a LEFT SHIFT is Present. Lymphocytes Auto (Unsp spec) [#/Vol]Ordered By: Jana Blake on 10-22-2024 Lymphocytes (Bld) [#/Vol] 1.02 10*3/uL 0.83-4.51 [facility] Lymphocytes/100 WBC Auto (Un sp spec)Ordered By: Jana Blake on 10-22-2024 Lymphocytes/100 WBC (Bld) 12.8 % Low 19-41 [facility] MCV (mean corpuscular volume ) determinationOrdered By: Jana Blake on 10-22-2024 MCV (RBC) [Entitic vol] 91.4 fL 80-94 [facility] Mean corpuscular hemoglobin (MCH) determinationOrdered By: Jana Blake on 10-22-2024 MCH (RBC) [Entitic mass] 29.0 pg 27.0-32.0 [facility] Mean corpuscular hemoglobin concentration (MCHC) determinationOrdered By: Jana Blake on 10-22-2024 MCHC (RBC) [Mass/Vol] 31.7 g/dL Low 32-36 [facility] Mean platelet volume determi nationOrdered By: Jana Blake on 10-22-2024 Platelet mean volume (Bld) [Entitic vol] 10.0 fL 6.2-12.0 [facility] Monocyte percentageOrdered B y: Jana Blake on 10-22-2024 Monocytes/100 WBC (Bld) 9.4 % 0-10 [facility] Neutrophil percentageOrdered By: Jana Blake on 10-22-2024 Neutrophils/100 WBC (Bld) 73.9 % High 47-70 [facility] Nucleated red blood cell per centageOrdered By: Jana Blake on 10-22-2024 Nucleated RBC/100 WBC (Bld) [Ratio] 0 % 0-5 [facility] Platelet countOrdered By: Richa Blake on 10-22-2024 Platelets (Bld) [#/Vol] 253 10*3/uL 150-450 [facility] RBC Auto (Bld) [#/Vol]Ordere d By: Jana Blake on 10-22-2024 RBC (Bld) [#/Vol] 5.35 10*6/uL 4.6-6.2 [facility] White blood cell (WBC) count Ordered By: Jana Blake on 10-22-2024 WBC (Bld) [#/Vol] 8.0 10*3/uL 4.4-11.0 [facility] Echo, Limited Studyon 2023 Echo, Limited Study Normal [facility] MR/BMS.BVSon 08-30-2024 MR/BMS.BVS Normal [facility] Basic Metabolic Profile (BMP )on 08-15-2024 BUN Normal 7-18 [facility] Comment on above: Result Comment: Canc elled via OM: Order cancelled - Patient discharged Performed By: #### L 500.2500, L100.0100 ####[facility] [address] [place], [address] BUN/CRE Normal 10-20 [facility] Comment on above: Result Comment: Canc elled via OM: Order cancelled - Patient discharged Performed By: #### L 500.2500, L100.0100 ####[facility] [address] [place], [address] CA,Total Normal 8.5-10.1 [facility] Comment on above: Result Comment: Canc elled via OM: Order cancelled - Patient discharged Performed By: #### L 500.2500, L100.0100 ####[facility] [address] [place], [address] CL Normal 98-107 [facility] Comment on above: Result Comment: Canc elled via OM: Order cancelled - Patient discharged Performed By: #### L 500.2500, L100.0100 ####[facility] [address] [place], [address] CO2 Normal 21.0-32.0 [facility] Comment on above: Result Comment: Canc elled via OM: Order cancelled - Patient discharged Performed By: #### L 500.2500, L100.0100 ####[facility] [address] [place], [address] CREAT,SERUM Normal 0.70-1.30 [facility] Comment on above: Result Comment: Canc elled via OM: Order cancelled - Patient discharged Performed By: #### L 500.2500, L100.0100 ####[facility] [address] [place], [address] EST GFR Normal >60 [facility] Comment on above: Result Comment: Canc elled via OM: Order cancelled - Patient discharged Performed By: #### L 500.2500, L100.0100 ####[facility] [address] [place], [address] EST GFR - AA Normal >60 [facility] Comment on above: Result Comment: Canc elled via OM: Order cancelled - Patient discharged Performed By: #### L 500.2500, L100.0100 ####[facility] [address] [place], [address] GAP Normal 5-15 [facility] Comment on above: Result Comment: Canc elled via OM: Order cancelled - Patient discharged Performed By: #### L 500.2500, L100.0100 ####[facility] [address] [place], [address] GLU Normal 74-106 [facility] Comment on above: Result Comment: Canc elled via OM: Order cancelled - Patient discharged Performed By: #### L 500.2500, L100.0100 ####[facility] [address] [place], [address] Potassium Normal 3.5-5.1 [facility] Comment on above: Result Comment: Canc elled via OM: Order cancelled - Patient discharged Performed By: #### L 500.2500, L100.0100 ####[facility] [address] [place], [address] Basic Metabolic Profile (BMP) Normal 136-145 [facility] Comment on above: Result Comment: Canc elled via OM: Order cancelled - Patient discharged Performed By: #### L 500.2500, L100.0100 ####[facility] [address] [place], [address] CBC W/Diff, Automatedon 09-2 Absolute Neut Normal 2.0-7.7 [facility] Comment on above: Result Comment: Canc elled via OM: Order cancelled - Patient discharged Performed By: #### L 500.2500, L100.0100 ####[facility] [address] [place], [address] HCT Normal 40-54 [facility] Comment on above: Result Comment: Canc elled via OM: Order cancelled - Patient discharged Performed By: #### L 500.2500, L100.0100 ####[facility] [address] [place], [address] HGB Normal 13.0-16.5 [facility] Comment on above: Result Comment: Canc elled via OM: Order cancelled - Patient discharged Performed By: #### L 500.2500, L100.0100 ####[facility] [address] [place], [address] MCH Normal 27.0-32.0 [facility] Comment on above: Result Comment: Canc elled via OM: Order cancelled - Patient discharged Performed By: #### L 500.2500, L100.0100 ####[facility] [address] [place], [address] MCHC Normal 32-36 [facility] Comment on above: Result Comment: Canc elled via OM: Order cancelled - Patient discharged Performed By: #### L 500.2500, L100.0100 ####[facility] [address] [place], [address] MCV Normal 80-94 [facility] Comment on above: Result Comment: Canc elled via OM: Order cancelled - Patient discharged Performed By: #### L 500.2500, L100.0100 ####[facility] [address] [place], [address] NEUT% Normal 47-70 [facility] Comment on above: Result Comment: Canc elled via OM: Order cancelled - Patient discharged Performed By: #### L 500.2500, L100.0100 ####[facility] [address] [place], [address] PLT Normal 150-450 [facility] Comment on above: Result Comment: Canc elled via OM: Order cancelled - Patient discharged Performed By: #### L 500.2500, L100.0100 ####[facility] [address] [place], [address] RBC Normal 4.6-6.2 [facility] Comment on above: Result Comment: Canc elled via OM: Order cancelled - Patient discharged Performed By: #### L 500.2500, L100.0100 ####[facility] [address] [place], [address] RDW CV Normal 11.6-14.6 [facility] Comment on above: Result Comment: Canc elled via OM: Order cancelled - Patient discharged Performed By: #### L 500.2500, L100.0100 ####[facility] [address] [place], [address] RDW SD Normal 35.1-43.9 [facility] Comment on above: Result Comment: Canc elled via OM: Order cancelled - Patient discharged Performed By: #### L 500.2500, L100.0100 ####[facility] [address] [place], [address] WBC Normal 4.4-11.0 [facility] Comment on above: Result Comment: Canc elled via OM: Order cancelled - Patient discharged Performed By: #### L 500.2500, L100.0100 ####[facility] [address] [place], [address] Basic Metabolic Profile (BMP )on 08-14-2024 BUN Normal 7-18 [facility] Comment on above: Result Comment: Canc elled via OM: Order cancelled - Patient discharged Performed By: #### L 100.0100, L500.2500 ####[facility] [address] [place], [address] BUN/CRE Normal 10-20 [facility] Comment on above: Result Comment: Canc elled via OM: Order cancelled - Patient discharged Performed By: #### L 100.0100, L500.2500 ####[facility] [address] [place], [address] CA,Total Normal 8.5-10.1 [facility] Comment on above: Result Comment: Canc elled via OM: Order cancelled - Patient discharged Performed By: #### L 100.0100, L500.2500 ####[facility] [address] [place], [address] CL Normal 98-107 [facility] Comment on above: Result Comment: Canc elled via OM: Order cancelled - Patient discharged Performed By: #### L 100.0100, L500.2500 ####[facility] [address] [place], [address] CO2 Normal 21.0-32.0 [facility] Comment on above: Result Comment: Canc elled via OM: Order cancelled - Patient discharged Performed By: #### L 100.0100, L500.2500 ####[facility] [address] [place], [address] CREAT,SERUM Normal 0.70-1.30 [facility] Comment on above: Result Comment: Canc elled via OM: Order cancelled - Patient discharged Performed By: #### L 100.0100, L500.2500 ####[facility] [address] [place], [address] EST GFR Normal >60 [facility] Comment on above: Result Comment: Canc elled via OM: Order cancelled - Patient discharged Performed By: #### L 100.0100, L500.2500 ####[facility] [address] [place], [address] EST GFR - AA Normal >60 [facility] Comment on above: Result Comment: Canc elled via OM: Order cancelled - Patient discharged Performed By: #### L 100.0100, L500.2500 ####[facility] [address] [place], [address] GAP Normal 5-15 [facility] Comment on above: Result Comment: Canc elled via OM: Order cancelled - Patient discharged Performed By: #### L 100.0100, L500.2500 ####[facility] [address] [place], [address] GLU Normal 74-106 [facility] Comment on above: Result Comment: Canc elled via OM: Order cancelled - Patient discharged Performed By: #### L 100.0100, L500.2500 ####[facility] [address] [place], [address] Potassium Normal 3.5-5.1 [facility] Comment on above: Result Comment: Canc elled via OM: Order cancelled - Patient discharged Performed By: #### L 100.0100, L500.2500 ####[facility] [address] [place], [address] Basic Metabolic Profile (BMP) Normal 136-145 [facility] Comment on above: Result Comment: Canc elled via OM: Order cancelled - Patient discharged Performed By: #### L 100.0100, L500.2500 ####[facility] [address] [place], [address] CBC W/Diff, Automatedon 09-2 Absolute Neut Normal 2.0-7.7 [facility] Comment on above: Result Comment: Canc elled via OM: Order cancelled - Patient discharged Performed By: #### L 100.0100, L500.2500 ####[facility] [address] [place], [address] HCT Normal 40-54 [facility] Comment on above: Result Comment: Canc elled via OM: Order cancelled - Patient discharged Performed By: #### L 100.0100, L500.2500 ####[facility] [address] [place], [address] HGB Normal 13.0-16.5 [facility] Comment on above: Result Comment: Canc elled via OM: Order cancelled - Patient discharged Performed By: #### L 100.0100, L500.2500 ####[facility] [address] [place], [address] MCH Normal 27.0-32.0 [facility] Comment on above: Result Comment: Canc elled via OM: Order cancelled - Patient discharged Performed By: #### L 100.0100, L500.2500 ####[facility] [address] [place], [address] MCHC Normal 32-36 [facility] Comment on above: Result Comment: Canc elled via OM: Order cancelled - Patient discharged Performed By: #### L 100.0100, L500.2500 ####[facility] [address] [place], [address] MCV Normal 80-94 [facility] Comment on above: Result Comment: Canc elled via OM: Order cancelled - Patient discharged Performed By: #### L 100.0100, L500.2500 ####[facility] [address] [place], [address] NEUT% Normal 47-70 [facility] Comment on above: Result Comment: Canc elled via OM: Order cancelled - Patient discharged Performed By: #### L 100.0100, L500.2500 ####[facility] [address] [place], [address] PLT Normal 150-450 [facility] Comment on above: Result Comment: Canc elled via OM: Order cancelled - Patient discharged Performed By: #### L 100.0100, L500.2500 ####[facility] [address] [place], [address] RBC Normal 4.6-6.2 [facility] Comment on above: Result Comment: Canc elled via OM: Order cancelled - Patient discharged Performed By: #### L 100.0100, L500.2500 ####[facility] [address] [place], [address] RDW CV Normal 11.6-14.6 [facility] Comment on above: Result Comment: Canc elled via OM: Order cancelled - Patient discharged Performed By: #### L 100.0100, L500.2500 ####[facility] [address] [place], [address] RDW SD Normal 35.1-43.9 [facility] Comment on above: Result Comment: Canc elled via OM: Order cancelled - Patient discharged Performed By: #### L 100.0100, L500.2500 ####[facility] [address] [place], [address] WBC Normal 4.4-11.0 [facility] Comment on above: Result Comment: Canc elled via OM: Order cancelled - Patient discharged Performed By: #### L 100.0100, L500.2500 ####[facility] [address] [place], [address] 12 Lead EKG performed by [facility] on 08-13-2024 12 Lead EKG performed by [facility] Normal [facility] Basic Metabolic Profile (BMP )on 08-13-2024 BUN Normal 7-18 [facility] Comment on above: Result Comment: Canc elled via OM: Order cancelled - Patient discharged Performed By: #### L 500.2500, L100.0100 ####[facility] [address] [place], [address] BUN/CRE Normal 10-20 [facility] Comment on above: Result Comment: Canc elled via OM: Order cancelled - Patient discharged Performed By: #### L 500.2500, L100.0100 ####[facility] [address] [place], [address] CA,Total Normal 8.5-10.1 [facility] Comment on above: Result Comment: Canc elled via OM: Order cancelled - Patient discharged Performed By: #### L 500.2500, L100.0100 ####[facility] [address] [place], [address] CL Normal 98-107 [facility] Comment on above: Result Comment: Canc elled via OM: Order cancelled - Patient discharged Performed By: #### L 500.2500, L100.0100 ####[facility] [address] [place], [address] CO2 Normal 21.0-32.0 [facility] Comment on above: Result Comment: Canc elled via OM: Order cancelled - Patient discharged Performed By: #### L 500.2500, L100.0100 ####[facility] [address] [place], [address] CREAT,SERUM Normal 0.70-1.30 [facility] Comment on above: Result Comment: Canc elled via OM: Order cancelled - Patient discharged Performed By: #### L 500.2500, L100.0100 ####[facility] [address] [place], [address] EST GFR Normal >60 [facility] Comment on above: Result Comment: Canc elled via OM: Order cancelled - Patient discharged Performed By: #### L 500.2500, L100.0100 ####[facility] [address] [place], [address] EST GFR - AA Normal >60 [facility] Comment on above: Result Comment: Canc elled via OM: Order cancelled - Patient discharged Performed By: #### L 500.2500, L100.0100 ####[facility] [address] [place], [address] GAP Normal 5-15 [facility] Comment on above: Result Comment: Canc elled via OM: Order cancelled - Patient discharged Performed By: #### L 500.2500, L100.0100 ####[facility] [address] [place], [address] GLU Normal 74-106 [facility] Comment on above: Result Comment: Canc elled via OM: Order cancelled - Patient discharged Performed By: #### L 500.2500, L100.0100 ####[facility] [address] [place], [address] Potassium Normal 3.5-5.1 [facility] Comment on above: Result Comment: Canc elled via OM: Order cancelled - Patient discharged Performed By: #### L 500.2500, L100.0100 ####[facility] [address] [place], [address] Basic Metabolic Profile (BMP) Normal 136-145 [facility] Comment on above: Result Comment: Canc elled via OM: Order cancelled - Patient discharged Performed By: #### L 500.2500, L100.0100 ####[facility] [address] [place], [address] CBC W/Diff, Automatedon 09-2 Absolute Neut Normal 2.0-7.7 [facility] Comment on above: Result Comment: Canc elled via OM: Order cancelled - Patient discharged Performed By: #### L 500.2500, L100.0100 ####[facility] [address] [place], [address] HCT Normal 40-54 [facility] Comment on above: Result Comment: Canc elled via OM: Order cancelled - Patient discharged Performed By: #### L 500.2500, L100.0100 ####[facility] [address] [place], [address] HGB Normal 13.0-16.5 [facility] Comment on above: Result Comment: Canc elled via OM: Order cancelled - Patient discharged Performed By: #### L 500.2500, L100.0100 ####[facility] [address] [place], [address] MCH Normal 27.0-32.0 [facility] Comment on above: Result Comment: Canc elled via OM: Order cancelled - Patient discharged Performed By: #### L 500.2500, L100.0100 ####[facility] [address] [place], [address] MCHC Normal 32-36 [facility] Comment on above: Result Comment: Canc elled via OM: Order cancelled - Patient discharged Performed By: #### L 500.2500, L100.0100 ####[facility] [address] [place], [address] MCV Normal 80-94 [facility] Comment on above: Result Comment: Canc elled via OM: Order cancelled - Patient discharged Performed By: #### L 500.2500, L100.0100 ####[facility] [address] [place], [address] NEUT% Normal 47-70 [facility] Comment on above: Result Comment: Canc elled via OM: Order cancelled - Patient discharged Performed By: #### L 500.2500, L100.0100 ####[facility] [address] [place], [address] PLT Normal 150-450 [facility] Comment on above: Result Comment: Canc elled via OM: Order cancelled - Patient discharged Performed By: #### L 500.2500, L100.0100 ####[facility] [address] [place], [address] RBC Normal 4.6-6.2 [facility] Comment on above: Result Comment: Canc elled via OM: Order cancelled - Patient discharged Performed By: #### L 500.2500, L100.0100 ####[facility] [address] [place], [address] RDW CV Normal 11.6-14.6 [facility] Comment on above: Result Comment: Canc elled via OM: Order cancelled - Patient discharged Performed By: #### L 500.2500, L100.0100 ####[facility] [address] [place], [address] RDW SD Normal 35.1-43.9 [facility] Comment on above: Result Comment: Canc elled via OM: Order cancelled - Patient discharged Performed By: #### L 500.2500, L100.0100 ####[facility] [address] [place], [address] WBC Normal 4.4-11.0 [facility] Comment on above: Result Comment: Canc elled via OM: Order cancelled - Patient discharged Performed By: #### L 500.2500, L100.0100 ####[facility] [address] [place], [address] Cardiac Cath Diagnosticon Cardiac Cath Diagnostic Normal [facility] Cardiology Visit Reporton Cardiology Visit Report Normal [facility] Basic Metabolic Profile (BMP )on 08-12-2024 BUN Normal 7-18 [facility] Comment on above: Result Comment: Canc elled via OM: Order cancelled - Patient discharged Performed By: #### L 100.0100, L500.2500 ####[facility] [address] [place], [address] BUN/CRE Normal 10-20 [facility] Comment on above: Result Comment: Canc elled via OM: Order cancelled - Patient discharged Performed By: #### L 100.0100, L500.2500 ####[facility] [address] [place], [address] CA,Total Normal 8.5-10.1 [facility] Comment on above: Result Comment: Canc elled via OM: Order cancelled - Patient discharged Performed By: #### L 100.0100, L500.2500 ####[facility] [address] [place], [address] CL Normal 98-107 [facility] Comment on above: Result Comment: Canc elled via OM: Order cancelled - Patient discharged Performed By: #### L 100.0100, L500.2500 ####[facility] [address] [place], [address] CO2 Normal 21.0-32.0 [facility] Comment on above: Result Comment: Canc elled via OM: Order cancelled - Patient discharged Performed By: #### L 100.0100, L500.2500 ####[facility] [address] [place], [address] CREAT,SERUM Normal 0.70-1.30 [facility] Comment on above: Result Comment: Canc elled via OM: Order cancelled - Patient discharged Performed By: #### L 100.0100, L500.2500 ####[facility] [address] [place], [address] EST GFR Normal >60 [facility] Comment on above: Result Comment: Canc elled via OM: Order cancelled - Patient discharged Performed By: #### L 100.0100, L500.2500 ####[facility] [address] [place], [address] EST GFR - AA Normal >60 [facility] Comment on above: Result Comment: Canc elled via OM: Order cancelled - Patient discharged Performed By: #### L 100.0100, L500.2500 ####[facility] [address] [place], [address] GAP Normal 5-15 [facility] Comment on above: Result Comment: Canc elled via OM: Order cancelled - Patient discharged Performed By: #### L 100.0100, L500.2500 ####[facility] [address] [place], [address] GLU Normal 74-106 [facility] Comment on above: Result Comment: Canc elled via OM: Order cancelled - Patient discharged Performed By: #### L 100.0100, L500.2500 ####[facility] [address] [place], [address] Potassium Normal 3.5-5.1 [facility] Comment on above: Result Comment: Canc elled via OM: Order cancelled - Patient discharged Performed By: #### L 100.0100, L500.2500 ####[facility] [address] [place], [address] Basic Metabolic Profile (BMP) Normal 136-145 [facility] Comment on above: Result Comment: Canc elled via OM: Order cancelled - Patient discharged Performed By: #### L 100.0100, L500.2500 ####[facility] [address] [place], [address] CBC W/Diff, Automatedon 09-2 Absolute Neut Normal 2.0-7.7 [facility] Comment on above: Result Comment: Canc elled via OM: Order cancelled - Patient discharged Performed By: #### L 100.0100, L500.2500 ####[facility] [address] [place], [address] HCT Normal 40-54 [facility] Comment on above: Result Comment: Canc elled via OM: Order cancelled - Patient discharged Performed By: #### L 100.0100, L500.2500 ####[facility] [address] [place], [address] HGB Normal 13.0-16.5 [facility] Comment on above: Result Comment: Canc elled via OM: Order cancelled - Patient discharged Performed By: #### L 100.0100, L500.2500 ####[facility] [address] [place], [address] MCH Normal 27.0-32.0 [facility] Comment on above: Result Comment: Canc elled via OM: Order cancelled - Patient discharged Performed By: #### L 100.0100, L500.2500 ####[facility] [address] [place], [address] MCHC Normal 32-36 [facility] Comment on above: Result Comment: Canc elled via OM: Order cancelled - Patient discharged Performed By: #### L 100.0100, L500.2500 ####[facility] [address] [place], [address] MCV Normal 80-94 [facility] Comment on above: Result Comment: Canc elled via OM: Order cancelled - Patient discharged Performed By: #### L 100.0100, L500.2500 ####[facility] [address] [place], [address] NEUT% Normal 47-70 [facility] Comment on above: Result Comment: Canc elled via OM: Order cancelled - Patient discharged Performed By: #### L 100.0100, L500.2500 ####[facility] [address] [place], [address] PLT Normal 150-450 [facility] Comment on above: Result Comment: Canc elled via OM: Order cancelled - Patient discharged Performed By: #### L 100.0100, L500.2500 ####[facility] [address] [place], [address] RBC Normal 4.6-6.2 [facility] Comment on above: Result Comment: Canc elled via OM: Order cancelled - Patient discharged Performed By: #### L 100.0100, L500.2500 ####[facility] [address] [place], [address] RDW CV Normal 11.6-14.6 [facility] Comment on above: Result Comment: Canc elled via OM: Order cancelled - Patient discharged Performed By: #### L 100.0100, L500.2500 ####[facility] [address] [place], [address] RDW SD Normal 35.1-43.9 [facility] Comment on above: Result Comment: Canc elled via OM: Order cancelled - Patient discharged Performed By: #### L 100.0100, L500.2500 ####[facility] [address] [place], [address] WBC Normal 4.4-11.0 [facility] Comment on above: Result Comment: Canc elled via OM: Order cancelled - Patient discharged Performed By: #### L 100.0100, L500.2500 ####[facility] [address] [place], [address] Basic Metabolic Profile (BMP )on 08-11-2024 BUN Normal 7-18 [facility] Comment on above: Result Comment: Canc elled via OM: Order cancelled - Patient discharged Performed By: #### L 100.0100, L500.2500 ####[facility] [address] [place], [address] BUN/CRE Normal 10-20 [facility] Comment on above: Result Comment: Canc elled via OM: Order cancelled - Patient discharged Performed By: #### L 100.0100, L500.2500 ####[facility] [address] [place], [address] CA,Total Normal 8.5-10.1 [facility] Comment on above: Result Comment: Canc elled via OM: Order cancelled - Patient discharged Performed By: #### L 100.0100, L500.2500 ####[facility] [address] [place], [address] CL Normal 98-107 [facility] Comment on above: Result Comment: Canc elled via OM: Order cancelled - Patient discharged Performed By: #### L 100.0100, L500.2500 ####[facility] [address] [place], [address] CO2 Normal 21.0-32.0 [facility] Comment on above: Result Comment: Canc elled via OM: Order cancelled - Patient discharged Performed By: #### L 100.0100, L500.2500 ####[facility] [address] [place], [address] CREAT,SERUM Normal 0.70-1.30 [facility] Comment on above: Result Comment: Canc elled via OM: Order cancelled - Patient discharged Performed By: #### L 100.0100, L500.2500 ####[facility] [address] [place], [address] EST GFR Normal >60 [facility] Comment on above: Result Comment: Canc elled via OM: Order cancelled - Patient discharged Performed By: #### L 100.0100, L500.2500 ####[facility] [address] [place], [address] EST GFR - AA Normal >60 [facility] Comment on above: Result Comment: Canc elled via OM: Order cancelled - Patient discharged Performed By: #### L 100.0100, L500.2500 ####[facility] [address] [place], [address] GAP Normal 5-15 [facility] Comment on above: Result Comment: Canc elled via OM: Order cancelled - Patient discharged Performed By: #### L 100.0100, L500.2500 ####[facility] [address] [place], [address] GLU Normal 74-106 [facility] Comment on above: Result Comment: Canc elled via OM: Order cancelled - Patient discharged Performed By: #### L 100.0100, L500.2500 ####[facility] [address] [place], [address] Potassium Normal 3.5-5.1 [facility] Comment on above: Result Comment: Canc elled via OM: Order cancelled - Patient discharged Performed By: #### L 100.0100, L500.2500 ####[facility] [address] [place], [address] Basic Metabolic Profile (BMP) Normal 136-145 [facility] Comment on above: Result Comment: Canc elled via OM: Order cancelled - Patient discharged Performed By: #### L 100.0100, L500.2500 ####[facility] [address] [place], [address] CBC W/Diff, Automatedon 09- Absolute Neut Normal 2.0-7.7 [facility] Comment on above: Result Comment: Canc elled via OM: Order cancelled - Patient discharged Performed By: #### L 100.0100, L500.2500 ####[facility] [address] [place], [address] HCT Normal 40-54 [facility] Comment on above: Result Comment: Canc elled via OM: Order cancelled - Patient discharged Performed By: #### L 100.0100, L500.2500 ####[facility] [address] [place], [address] HGB Normal 13.0-16.5 [facility] Comment on above: Result Comment: Canc elled via OM: Order cancelled - Patient discharged Performed By: #### L 100.0100, L500.2500 ####[facility] [address] [place], [address] MCH Normal 27.0-32.0 [facility] Comment on above: Result Comment: Canc elled via OM: Order cancelled - Patient discharged Performed By: #### L 100.0100, L500.2500 ####[facility] [address] [place], [address] MCHC Normal 32-36 [facility] Comment on above: Result Comment: Canc elled via OM: Order cancelled - Patient discharged Performed By: #### L 100.0100, L500.2500 ####[facility] [address] [place], [address] MCV Normal 80-94 [facility] Comment on above: Result Comment: Canc elled via OM: Order cancelled - Patient discharged Performed By: #### L 100.0100, L500.2500 ####[facility] [address] [place], [address] NEUT% Normal 47-70 [facility] Comment on above: Result Comment: Canc elled via OM: Order cancelled - Patient discharged Performed By: #### L 100.0100, L500.2500 ####[facility] [address] [place], [address] PLT Normal 150-450 [facility] Comment on above: Result Comment: Canc elled via OM: Order cancelled - Patient discharged Performed By: #### L 100.0100, L500.2500 ####[facility] [address] [place], [address] RBC Normal 4.6-6.2 [facility] Comment on above: Result Comment: Canc elled via OM: Order cancelled - Patient discharged Performed By: #### L 100.0100, L500.2500 ####[facility] [address] [place], [address] RDW CV Normal 11.6-14.6 [facility] Comment on above: Result Comment: Canc elled via OM: Order cancelled - Patient discharged Performed By: #### L 100.0100, L500.2500 ####[facility] [address] [place], [address] RDW SD Normal 35.1-43.9 [facility] Comment on above: Result Comment: Canc elled via OM: Order cancelled - Patient discharged Performed By: #### L 100.0100, L500.2500 ####[facility] [address] [place], [address] WBC Normal 4.4-11.0 [facility] Comment on above: Result Comment: Canc elled via OM: Order cancelled - Patient discharged Performed By: #### L 100.0100, L500.2500 ####[facility] [address] [place], [address] Basic Metabolic Profile (BMP )on 08-10-2024 BUN Normal 7-18 [facility] Comment on above: Result Comment: Canc elled via OM: Order cancelled - Patient discharged Performed By: #### L 500.2500, L100.0100 ####[facility] [address] [place], [address] BUN/CRE Normal 10-20 [facility] Comment on above: Result Comment: Canc elled via OM: Order cancelled - Patient discharged Performed By: #### L 500.2500, L100.0100 ####[facility] [address] [place], [address] CA,Total Normal 8.5-10.1 [facility] Comment on above: Result Comment: Canc elled via OM: Order cancelled - Patient discharged Performed By: #### L 500.2500, L100.0100 ####[facility] [address] [place], [address] CL Normal 98-107 [facility] Comment on above: Result Comment: Canc elled via OM: Order cancelled - Patient discharged Performed By: #### L 500.2500, L100.0100 ####[facility] [address] [place], [address] CO2 Normal 21.0-32.0 [facility] Comment on above: Result Comment: Canc elled via OM: Order cancelled - Patient discharged Performed By: #### L 500.2500, L100.0100 ####[facility] [address] [place], [address] CREAT,SERUM Normal 0.70-1.30 [facility] Comment on above: Result Comment: Canc elled via OM: Order cancelled - Patient discharged Performed By: #### L 500.2500, L100.0100 ####[facility] [address] [place], [address] EST GFR Normal >60 [facility] Comment on above: Result Comment: Canc elled via OM: Order cancelled - Patient discharged Performed By: #### L 500.2500, L100.0100 ####[facility] [address] [place], [address] EST GFR - AA Normal >60 [facility] Comment on above: Result Comment: Canc elled via OM: Order cancelled - Patient discharged Performed By: #### L 500.2500, L100.0100 ####[facility] [address] [place], [address] GAP Normal 5-15 [facility] Comment on above: Result Comment: Canc elled via OM: Order cancelled - Patient discharged Performed By: #### L 500.2500, L100.0100 ####[facility] [address] [place], [address] GLU Normal 74-106 [facility] Comment on above: Result Comment: Canc elled via OM: Order cancelled - Patient discharged Performed By: #### L 500.2500, L100.0100 ####[facility] [address] [place], [address] Potassium Normal 3.5-5.1 [facility] Comment on above: Result Comment: Canc elled via OM: Order cancelled - Patient discharged Performed By: #### L 500.2500, L100.0100 ####[facility] [address] [place], [address] Basic Metabolic Profile (BMP) Normal 136-145 [facility] Comment on above: Result Comment: Canc elled via OM: Order cancelled - Patient discharged Performed By: #### L 500.2500, L100.0100 ####[facility] [address] [place], [address] CBC W/Diff, Automatedon 09-2 Absolute Neut Normal 2.0-7.7 [facility] Comment on above: Result Comment: Canc elled via OM: Order cancelled - Patient discharged Performed By: #### L 500.2500, L100.0100 ####[facility] [address] [place], [address] HCT Normal 40-54 [facility] Comment on above: Result Comment: Canc elled via OM: Order cancelled - Patient discharged Performed By: #### L 500.2500, L100.0100 ####[facility] [address] [place], [address] HGB Normal 13.0-16.5 [facility] Comment on above: Result Comment: Canc elled via OM: Order cancelled - Patient discharged Performed By: #### L 500.2500, L100.0100 ####[facility] [address] [place], [address] MCH Normal 27.0-32.0 [facility] Comment on above: Result Comment: Canc elled via OM: Order cancelled - Patient discharged Performed By: #### L 500.2500, L100.0100 ####[facility] [address] [place], [address] MCHC Normal 32-36 [facility] Comment on above: Result Comment: Canc elled via OM: Order cancelled - Patient discharged Performed By: #### L 500.2500, L100.0100 ####[facility] [address] [place], [address] MCV Normal 80-94 [facility] Comment on above: Result Comment: Canc elled via OM: Order cancelled - Patient discharged Performed By: #### L 500.2500, L100.0100 ####[facility] [address] [place], [address] NEUT% Normal 47-70 [facility] Comment on above: Result Comment: Canc elled via OM: Order cancelled - Patient discharged Performed By: #### L 500.2500, L100.0100 ####[facility] [address] [place], [address] PLT Normal 150-450 [facility] Comment on above: Result Comment: Canc elled via OM: Order cancelled - Patient discharged Performed By: #### L 500.2500, L100.0100 ####[facility] [address] [place], [address] RBC Normal 4.6-6.2 [facility] Comment on above: Result Comment: Canc elled via OM: Order cancelled - Patient discharged Performed By: #### L 500.2500, L100.0100 ####[facility] [address] [place], [address] RDW CV Normal 11.6-14.6 [facility] Comment on above: Result Comment: Canc elled via OM: Order cancelled - Patient discharged Performed By: #### L 500.2500, L100.0100 ####[facility] [address] [place], [address] RDW SD Normal 35.1-43.9 [facility] Comment on above: Result Comment: Canc elled via OM: Order cancelled - Patient discharged Performed By: #### L 500.2500, L100.0100 ####[facility] [address] [place], [address] WBC Normal 4.4-11.0 [facility] Comment on above: Result Comment: Canc elled via OM: Order cancelled - Patient discharged Performed By: #### L 500.2500, L100.0100 ####[facility] [address] [place], [address] Basic Metabolic Profile (BMP )on 08-09-2024 BUN Normal - [facility] Comment on above: Result Comment: Canc elled via OM: Order cancelled - Patient discharged Performed By: #### L 100.0100, L500.2500 ####[facility] [address] [place], [address] BUN/CRE Normal - [facility] Comment on above: Result Comment: Canc elled via OM: Order cancelled - Patient discharged Performed By: #### L 100.0100, L500.2500 ####[facility] [address] [place], [address] CA,Total Normal 8.5-10.1 [facility] Comment on above: Result Comment: Canc elled via OM: Order cancelled - Patient discharged Performed By: #### L 100.0100, L500.2500 ####[facility] [address] [place], [address] CL Normal 98-107 [facility] Comment on above: Result Comment: Canc elled via OM: Order cancelled - Patient discharged Performed By: #### L 100.0100, L500.2500 ####[facility] [address] [place], [address] CO2 Normal 21.0-32.0 [facility] Comment on above: Result Comment: Canc elled via OM: Order cancelled - Patient discharged Performed By: #### L 100.0100, L500.2500 ####[facility] [address] [place], [address] CREAT,SERUM Normal 0.70-1.30 [facility] Comment on above: Result Comment: Canc elled via OM: Order cancelled - Patient discharged Performed By: #### L 100.0100, L500.2500 ####[facility] [address] [place], [address] EST GFR Normal >60 [facility] Comment on above: Result Comment: Canc elled via OM: Order cancelled - Patient discharged Performed By: #### L 100.0100, L500.2500 ####[facility] [address] [place], [address] EST GFR - AA Normal >60 [facility] Comment on above: Result Comment: Canc elled via OM: Order cancelled - Patient discharged Performed By: #### L 100.0100, L500.2500 ####[facility] [address] [place], [address] GAP Normal 5-15 [facility] Comment on above: Result Comment: Canc elled via OM: Order cancelled - Patient discharged Performed By: #### L 100.0100, L500.2500 ####[facility] [address] [place], [address] GLU Normal 74-106 [facility] Comment on above: Result Comment: Canc elled via OM: Order cancelled - Patient discharged Performed By: #### L 100.0100, L500.2500 ####[facility] [address] [place], [address] Potassium Normal 3.5-5.1 [facility] Comment on above: Result Comment: Canc elled via OM: Order cancelled - Patient discharged Performed By: #### L 100.0100, L500.2500 ####[facility] [address] [place], [address] Basic Metabolic Profile (BMP) Normal 136-145 [facility] Comment on above: Result Comment: Canc elled via OM: Order cancelled - Patient discharged Performed By: #### L 100.0100, L500.2500 ####[facility] [address] [place], [address] CBC W/Diff, Automatedon 09-2 0-2023 Absolute Neut Normal 2.0-7.7 [facility] Comment on above: Result Comment: Canc elled via OM: Order cancelled - Patient discharged Performed By: #### L 100.0100, L500.2500 ####[facility] [address] [place], [address] HCT Normal 40-54 [facility] Comment on above: Result Comment: Canc elled via OM: Order cancelled - Patient discharged Performed By: #### L 100.0100, L500.2500 ####[facility] [address] [place], [address] HGB Normal 13.0-16.5 [facility] Comment on above: Result Comment: Canc elled via OM: Order cancelled - Patient discharged Performed By: #### L 100.0100, L500.2500 ####[facility] [address] [place], [address] MCH Normal 27.0-32.0 [facility] Comment on above: Result Comment: Canc elled via OM: Order cancelled - Patient discharged Performed By: #### L 100.0100, L500.2500 ####[facility] [address] [place], [address] MCHC Normal 32-36 [facility] Comment on above: Result Comment: Canc elled via OM: Order cancelled - Patient discharged Performed By: #### L 100.0100, L500.2500 ####[facility] [address] [place], [address] MCV Normal 80-94 [facility] Comment on above: Result Comment: Canc elled via OM: Order cancelled - Patient discharged Performed By: #### L 100.0100, L500.2500 ####[facility] [address] [place], [address] NEUT% Normal 47-70 [facility] Comment on above: Result Comment: Canc elled via OM: Order cancelled - Patient discharged Performed By: #### L 100.0100, L500.2500 ####[facility] [address] [place], [address] PLT Normal 150-450 [facility] Comment on above: Result Comment: Canc elled via OM: Order cancelled - Patient discharged Performed By: #### L 100.0100, L500.2500 ####[facility] [address] [place], [address] RBC Normal 4.6-6.2 [facility] Comment on above: Result Comment: Canc elled via OM: Order cancelled - Patient discharged Performed By: #### L 100.0100, L500.2500 ####[facility] [address] [place], [address] RDW CV Normal 11.6-14.6 [facility] Comment on above: Result Comment: Canc elled via OM: Order cancelled - Patient discharged Performed By: #### L 100.0100, L500.2500 ####[facility] [address] [place], [address] RDW SD Normal 35.1-43.9 [facility] Comment on above: Result Comment: Canc elled via OM: Order cancelled - Patient discharged Performed By: #### L 100.0100, L500.2500 ####[facility] [address] [place], [address] WBC Normal 4.4-11.0 [facility] Comment on above: Result Comment: Canc elled via OM: Order cancelled - Patient discharged Performed By: #### L 100.0100, L500.2500 ####[facility] [address] [place], [address] Basic Metabolic Profile (BMP )on 08-08-2024 BUN/CRE 32.2 RATIO High 10-20 [facility] Comment on above: Performed By: #### L 500.4100, L500.2500 ####[facility] [address] [place], [address] CA,Total 9.1 mg/dL Normal 8.5-10.1 [facility] Comment on above: Performed By: #### L 500.4100, L500.2500 ####[facility] [address] [place], [address] Chloride [Moles/Vol] 112 mmol/L High 98-107 [facility] Comment on above: Performed By: #### L 500.4100, L500.2500 ####[facility] [address] [place], [address] CO2 [Moles/Vol] 24.0 mmol/L Normal 21.0-32.0 [facility] Comment on above: Performed By: #### L 500.4100, L500.2500 ####[facility] [address] [place], [address] Creatinine [Mass/Vol] 1.15 mg/dL Normal 0.70-1.30 [facility] Comment on above: Result Comment: The validity of the calculated GFR GFRAA in patients over70 years has not been determined. Clinical correlation isessential. Performed By: #### L 500.4100, L500.2500 ####[facility] [address] [place], [address] ECRCL 68.83 ml/min Normal [facility] Comment on above: Performed By: #### L 500.4100, L500.2500 ####[facility] [address] [place], [address] EST GFR - AA 79 mL/min Normal >60 [facility] Comment on above: Result Comment: Afri can [place] GFR Calc Performed By: #### L 500.4100, L500.2500 ####[facility] [address] [place], [address] GAP 3 Low 5-15 [facility] Comment on above: Performed By: #### L 500.4100, L500.2500 ####[facility] [address] [place], [address] GFR/1.73 sq M.predicted among non-blacks MDRD (S/P/Bld) [Vol rate/Area] 66 mL/min/{1.73_m2} Normal >60 [facility] Comment on above: Result Comment: Non- GFR Calc Performed By: #### L 500.4100, L500.2500 ####[facility] [facility] [address] [place], [address] Glucose [Mass/Vol] 116 mg/dL High 74-106 [facility] Comment on above: Result Comment: Fast ing Glucose result from 100 to 125 mg/dLsuggests IMPAIRED HOMEOSTASIS per A.D.A. criteria. Performed By: #### L 500.4100, L500.2500 ####[facility] [address] [place], [address] Potassium [Moles/Vol] 4.5 mmol/L Normal 3.5-5.1 [facility] Comment on above: Performed By: #### L 500.4100, L500.2500 ####[facility] [address] [place], [address] Sodium [Moles/Vol] 139 mmol/L Normal 136-145 [facility] Comment on above: Performed By: #### L 500.4100, L500.2500 ####[facility] [address] [place], [address] Urea nitrogen [Mass/Vol] 37 mg/dL High 7-18 [facility] Comment on above: Performed By: #### L 500.4100, L500.2500 ####[facility] [address] [place], [address] CBC W/Diff, Automatedon 07-21-2023 Absolute Lymph 0.64 X10 3/uL Low 0.83-4.51 [facility] Comment on above: Performed By: #### L 100.0100 ####[facility] [address] [place], [address] Absolute Neut 4.7 X10 3/uL Normal 2.0-7.7 [facility] Comment on above: Performed By: #### L 100.0100 ####[facility] [address] [place], [address] Basophils/100 WBC (Bld) 0.4 % Normal 0-1 [facility] Comment on above: Performed By: #### L 100.0100 ####[facility] [address] [place], [address] Eosinophils/100 WBC (Bld) 5.3 % High 0-5 [facility] Comment on above: Performed By: #### L 100.0100 ####[facility] [address] [place], [address] Erythrocyte distribution width (RBC) [Ratio] 13.3 % Normal 11.6-14.6 [facility] Comment on above: Performed By: #### L 100.0100 ####[facility] [address] [place], [address] Hematocrit (Bld) [Volume fraction] 38.0 % Low 40-54 [facility] Comment on above: Performed By: #### L 100.0100 ####[facility] [address] [place], [address] Hemoglobin (Bld) [Mass/Vol] 12.4 g/dL Low 13.0-16.5 [facility] Comment on above: Performed By: #### L 100.0100 ####[facility] [address] [place], [address] IG% 0.700 Normal 0.0-0.9 [facility] Comment on above: Result Comment: IG% - Immature Granulocytes (promyelocytes, myelocytes andmetamyelocytes) > 1% indicates that a LEFT SHIFT is Present. Performed By: #### L 100.0100 ####[facility] [address] [place], [address] Lymphocytes/100 WBC (Bld) 9.3 % Low 19-41 [facility] Comment on above: Performed By: #### L 100.0100 ####[facility] [address] [place], [address] MCH (RBC) [Entitic mass] 31.0 pg Normal 27.0-32.0 [facility] Comment on above: Performed By: #### L 100.0100 ####[facility] [address] [place], [address] MCHC (RBC) [Mass/Vol] 32.6 g/dL Normal 32-36 [facility] Comment on above: Performed By: #### L 100.0100 ####[facility] [address] [place], [address] MCV (RBC) [Entitic vol] 95.0 fL High 80-94 [facility] Comment on above: Performed By: #### L 100.0100 ####[facility] [address] [place], [address] Monocytes/100 WBC (Bld) 15.0 % High 0-10 [facility] Comment on above: Performed By: #### L 100.0100 ####[facility] [address] [place], [address] Neutrophils/100 WBC (Bld) 69.3 % Normal 47-70 [facility] Comment on above: Performed By: #### L 100.0100 ####[facility] [address] [place], [address] Nucleated RBC (Bld) [#/Vol] 0 10*3/uL Normal 0-5 [facility] Comment on above: Performed By: #### L 100.0100 ####[facility] [address] [place], [address] Platelet mean volume (Bld) [Entitic vol] 10.2 fL Normal 6.2-12.0 [facility] Comment on above: Performed By: #### L 100.0100 ####[facility] [address] [place], [address] Platelets (Bld) [#/Vol] 221 10*3/uL Normal 150-450 [facility] Comment on above: Performed By: #### L 100.0100 ####[facility] [address] [place], [address] RBC (Bld) [#/Vol] 4.00 10*6/uL Low 4.6-6.2 [facility] Comment on above: Performed By: #### L 100.0100 ####[facility] [address] [place], [address] RDW SD 46.8 fl High 35.1-43.9 [facility] Comment on above: Performed By: #### L 100.0100 ####[facility] [address] [place], [address] WBC (Bld) [#/Vol] 6.9 10*3/uL Normal 4.4-11.0 [facility] Comment on above: Performed By: #### L 100.0100 ####[facility] [address] [place], [address] Discharge Instructionon 07-21 Discharge Instruction Normal [facility] Erythrocyte Sed Rateon 08-08 SED RATE 51 mm/hr High 0-20 [facility] Comment on above: Performed By: #### L 101.9900 ####[facility] [address] [place], [address] Lipid Profileon 08-08-2024 Cholesterol [Mass/Vol] 109 mg/dL Normal 200 [facility] Comment on above: Result Comment: <200 mg/dL Desirable 200-240 mg/dL Borderline >240 mg/dL High Risk Performed By: #### L 500.4100, L500.2500 ####[facility] [address] [place], [address] Cholesterol in HDL [Mass/Vol] 35 mg/dL Low [facility] Comment on above: Result Comment: The drugs N-Acetylcysteine and Metamizole may falselydepress this assay. Reference Range HDL <40 mg/dL Low HDL Cholesterol HDL >or= 60 mg/dL High HDL Cholesterol Performed By: #### L 500.4100, L500.2500 ####[facility] [address] [place], [address] Cholesterol in LDL [Mass/Vol] 48 mg/dL Normal 0-130 [facility] Comment on above: Performed By: #### L 500.4100, L500.2500 ####[facility] [address] [place], [address] Cholesterol in VLDL [Mass/Vol] 26 mg/dL Normal 5-40 [facility] Comment on above: Performed By: #### L 500.4100, L500.2500 ####[facility] [address] [place], [address] Triglyceride [Mass/Vol] 130 mg/dL Normal [facility] Comment on above: Result Comment: The drugs N-Acetylcysteine and Metamizole may falselydepress this assay.Serum Triglycerides Reference Interval Normal <150 mg/dL Borderline high 150 - 199 mg/dL High 200 - 499 mg/dL Very High > or = 500 mg/dL Performed By: #### L 500.4100, L500.2500 ####[facility] [address] [place], [address] CBC W/Diff, Automatedon 07-21 Absolute Lymph 0.80 X10 3/uL Low 0.83-4.51 [facility] Comment on above: Performed By: #### L 501.9985, L100.0100, L503.6030, L501.9520, L503.6550, L506.0400, L500.4050 ####[facility] [address] [place], [address] Absolute Neut 4.7 X10 3/uL Normal 2.0-7.7 [facility] Comment on above: Performed By: #### L 501.9985, L100.0100, L503.6030, L501.9520, L503.6550, L506.0400, L500.4050 ####[facility] [address] [place], [address] Basophils/100 WBC (Bld) 0.4 % Normal 0-1 [facility] Comment on above: Performed By: #### L 501.9985, L100.0100, L503.6030, L501.9520, L503.6550, L506.0400, L500.4050 ####[facility] [address] [place], [address] Eosinophils/100 WBC (Bld) 5.3 % High 0-5 [facility] Comment on above: Performed By: #### L 501.9985, L100.0100, L503.6030, L501.9520, L503.6550, L506.0400, L500.4050 ####[facility] [address] [place], [address] Erythrocyte distribution width (RBC) [Ratio] 13.3 % Normal 11.6-14.6 [facility] Comment on above: Performed By: #### L 501.9985, L100.0100, L503.6030, L501.9520, L503.6550, L506.0400, L500.4050 ####[facility] [address] [place], [address] Hematocrit (Bld) [Volume fraction] 36.8 % Low 40-54 [facility] Comment on above: Performed By: #### L 501.9985, L100.0100, L503.6030, L501.9520, L503.6550, L506.0400, L500.4050 ####[facility] [address] [place], [address] Hemoglobin (Bld) [Mass/Vol] 12.2 g/dL Low 13.0-16.5 [facility] Comment on above: Performed By: #### L 501.9985, L100.0100, L503.6030, L501.9520, L503.6550, L506.0400, L500.4050 ####[facility] [address] [place], [address] IG% 0.600 Normal 0.0-0.9 [facility] Comment on above: Result Comment: IG% - Immature Granulocytes (promyelocytes, myelocytes andmetamyelocytes) > 1% indicates that a LEFT SHIFT is Present. Performed By: #### L 501.9985, L100.0100, L503.6030, L501.9520, L503.6550, L506.0400, L500.4050 ####[facility] [address] [place], [address] Lymphocytes/100 WBC (Bld) 11.4 % Low 19-41 [facility] Comment on above: Performed By: #### L 501.9985, L100.0100, L503.6030, L501.9520, L503.6550, L506.0400, L500.4050 ####[facility] [address] [place], [address] MCH (RBC) [Entitic mass] 31.2 pg Normal 27.0-32.0 [facility] Comment on above: Performed By: #### L 501.9985, L100.0100, L503.6030, L501.9520, L503.6550, L506.0400, L500.4050 ####[facility] [address] [place], [address] MCHC (RBC) [Mass/Vol] 33.2 g/dL Normal 32-36 [facility] Comment on above: Performed By: #### L 501.9985, L100.0100, L503.6030, L501.9520, L503.6550, L506.0400, L500.4050 ####[facility] [address] [place], [address] MCV (RBC) [Entitic vol] 94.1 fL High 80-94 [facility] Comment on above: Performed By: #### L 501.9985, L100.0100, L503.6030, L501.9520, L503.6550, L506.0400, L500.4050 ####[facility] [address] [place], [address] Monocytes/100 WBC (Bld) 15.0 % High 0-10 [facility] Comment on above: Performed By: #### L 501.9985, L100.0100, L503.6030, L501.9520, L503.6550, L506.0400, L500.4050 ####[facility] [address] [place], [address] Neutrophils/100 WBC (Bld) 67.3 % Normal 47-70 [facility] Comment on above: Performed By: #### L 501.9985, L100.0100, L503.6030, L501.9520, L503.6550, L506.0400, L500.4050 ####[facility] [address] [place], [address] Nucleated RBC (Bld) [#/Vol] 0 10*3/uL Normal 0-5 [facility] Comment on above: Performed By: #### L 501.9985, L100.0100, L503.6030, L501.9520, L503.6550, L506.0400, L500.4050 ####[facility] [address] [place], [address] Platelet mean volume (Bld) [Entitic vol] 9.8 fL Normal 6.2-12.0 [facility] Comment on above: Performed By: #### L 501.9985, L100.0100, L503.6030, L501.9520, L503.6550, L506.0400, L500.4050 ####[facility] [address] [place], [address] Platelets (Bld) [#/Vol] 200 10*3/uL Normal 150-450 [facility] Comment on above: Performed By: #### L 501.9985, L100.0100, L503.6030, L501.9520, L503.6550, L506.0400, L500.4050 ####[facility] [address] [place], [address] RBC (Bld) [#/Vol] 3.91 10*6/uL Low 4.6-6.2 [facility] Comment on above: Performed By: #### L 501.9985, L100.0100, L503.6030, L501.9520, L503.6550, L506.0400, L500.4050 ####[facility] [address] [place], [address] RDW SD 45.9 fl High 35.1-43.9 [facility] Comment on above: Performed By: #### L 501.9985, L100.0100, L503.6030, L501.9520, L503.6550, L506.0400, L500.4050 ####[facility] [address] [place], [address] WBC (Bld) [#/Vol] 7.0 10*3/uL Normal 4.4-11.0 [facility] Comment on above: Performed By: #### L 501.9985, L100.0100, L503.6030, L501.9520, L503.6550, L506.0400, L500.4050 ####[facility] [address] [place], [address] CRPon 08-07-2024 C-REACTIVE PROT 140.00 mg/L High 0.0-3.0 [facility] Comment on above: Order Comment: Comme nts: may add to ED labsComments: May add to ED labs Result Comment: C-Re active Protein (CRP) provides useful information for thediagnosis, therapy and monitoring of inflammatory processesand associated diseases. For the evaluation of Relative Riskfor Cardiovascular Disease, a High Sensitivity CRP (HSCRP)should be ordered. Performed By: #### L 501.6710, L101.9900, L509.7000, L501.5200 ####[facility] [address] [place], [address] Comprehensive Metabolic Prof ilon 08-07-2024 Albumin [Mass/Vol] 2.4 g/dL Low 3.2-5.0 [facility] Comment on above: Performed By: #### L 501.9985, L100.0100, L503.6030, L501.9520, L503.6550, L506.0400, L500.4050 ####[facility] [address] [place], [address] Albumin/Globulin [Mass ratio] 0.6 {ratio} Low 0.9-2.4 [facility] Comment on above: Performed By: #### L 501.9985, L100.0100, L503.6030, L501.9520, L503.6550, L506.0400, L500.4050 ####[facility] [address] [place], [address] ALK P 126 U/L High 45-117 [facility] Comment on above: Performed By: #### L 501.9985, L100.0100, L503.6030, L501.9520, L503.6550, L506.0400, L500.4050 ####[facility] [address] [place], [address] ALT [Catalytic activity/Vol] 55 U/L Normal 16-61 [facility] Comment on above: Performed By: #### L 501.9985, L100.0100, L503.6030, L501.9520, L503.6550, L506.0400, L500.4050 ####[facility] [address] [place], [address] AST [Catalytic activity/Vol] 36 U/L Normal 15-37 [facility] Comment on above: Performed By: #### L 501.9985, L100.0100, L503.6030, L501.9520, L503.6550, L506.0400, L500.4050 ####[facility] [address] [place], [address] Bilirubin [Mass/Vol] 0.60 mg/dL Normal 0.20-1.00 [facility] Comment on above: Result Comment: For patients on eltrombopag therapy, use of Dimension [place] TBIL is not recommended. Performed By: #### L 501.9985, L100.0100, L503.6030, L501.9520, L503.6550, L506.0400, L500.4050 ####[facility] [address] [place], [address] BUN/CRE 32.4 RATIO High 10-20 [facility] Comment on above: Performed By: #### L 501.9985, L100.0100, L503.6030, L501.9520, L503.6550, L506.0400, L500.4050 ####[facility] [address] [place], [address] CA,Total 8.9 mg/dL Normal 8.5-10.1 [facility] Comment on above: Performed By: #### L 501.9985, L100.0100, L503.6030, L501.9520, L503.6550, L506.0400, L500.4050 ####[facility] [address] [place], [address] Chloride [Moles/Vol] 111 mmol/L High 98-107 [facility] Comment on above: Performed By: #### L 501.9985, L100.0100, L503.6030, L501.9520, L503.6550, L506.0400, L500.4050 ####[facility] [address] [place], [address] CO2 [Moles/Vol] 24.0 mmol/L Normal 21.0-32.0 [facility] Comment on above: Performed By: #### L 501.9985, L100.0100, L503.6030, L501.9520, L503.6550, L506.0400, L500.4050 ####[facility] [address] [place], [address] Creatinine [Mass/Vol] 1.02 mg/dL Normal 0.70-1.30 [facility] Comment on above: Result Comment: The validity of the calculated GFR GFRAA in patients over70 years has not been determined. Clinical correlation isessential. Performed By: #### L 501.9985, L100.0100, L503.6030, L501.9520, L503.6550, L506.0400, L500.4050 ####[facility] [address] [place], [address] ECRCL 77.60 ml/min Normal [facility] Comment on above: Performed By: #### L 501.9985, L100.0100, L503.6030, L501.9520, L503.6550, L506.0400, L500.4050 ####[facility] [address] [place], [address] EST GFR - AA 91 mL/min Normal >60 [facility] Comment on above: Result Comment: Afri can [place] GFR Calc Performed By: #### L 501.9985, L100.0100, L503.6030, L501.9520, L503.6550, L506.0400, L500.4050 ####[facility] [address] [place], [address] GAP 4 Low 5-15 [facility] Comment on above: Performed By: #### L 501.9985, L100.0100, L503.6030, L501.9520, L503.6550, L506.0400, L500.4050 ####[facility] [address] [place], [address] GFR/1.73 sq M.predicted among non-blacks MDRD (S/P/Bld) [Vol rate/Area] 75 mL/min/{1.73_m2} Normal >60 [facility] Comment on above: Result Comment: Non- GFR Calc Performed By: #### L 501.9985, L100.0100, L503.6030, L501.9520, L503.6550, L506.0400, L500.4050 ####[facility] [address] [place], [address] Globulin (S) [Mass/Vol] 3.7 g/dL Normal 2.2-4.2 [facility] Comment on above: Performed By: #### L 501.9985, L100.0100, L503.6030, L501.9520, L503.6550, L506.0400, L500.4050 ####[facility] [address] [place], [address] Glucose [Mass/Vol] 107 mg/dL High 74-106 [facility] Comment on above: Result Comment: Fast ing Glucose result from 100 to 125 mg/dLsuggests IMPAIRED HOMEOSTASIS per A.D.A. criteria. Performed By: #### L 501.9985, L100.0100, L503.6030, L501.9520, L503.6550, L506.0400, L500.4050 ####[facility] [address] [place], [address] Potassium [Moles/Vol] 4.5 mmol/L Normal 3.5-5.1 [facility] Comment on above: Performed By: #### L 501.9985, L100.0100, L503.6030, L501.9520, L503.6550, L506.0400, L500.4050 ####[facility] [address] [place], [address] Sodium [Moles/Vol] 139 mmol/L Normal 136-145 [facility] Comment on above: Performed By: #### L 501.9985, L100.0100, L503.6030, L501.9520, L503.6550, L506.0400, L500.4050 ####[facility] [address] [place], [address] T PROT 6.1 g/dL Low 6.4-8.2 [facility] Comment on above: Performed By: #### L 501.9985, L100.0100, L503.6030, L501.9520, L503.6550, L506.0400, L500.4050 ####[facility] [address] [place], [address] Urea nitrogen [Mass/Vol] 33 mg/dL High 7-18 [facility] Comment on above: Performed By: #### L 501.9985, L100.0100, L503.6030, L501.9520, L503.6550, L506.0400, L500.4050 ####[facility] [address] [place], [address] Consultation - Cardiologyon 08-07-2024 Consultation - Cardiology Normal [facility] Echo, Limited Studyon 2023 Echo, Limited Study Normal [facility] Erythrocyte Sed Rateon 08-07 SED RATE 49 mm/hr High 0-20 [facility] Comment on above: Performed By: #### L 501.6710, L101.9900, L509.7000, L501.5200 ####[facility] [address] [place], [address] Ferritinon 08-07-2024 Ferritin [Mass/Vol] 447 ng/mL High 26-388 [facility] Comment on above: Performed By: #### L 501.9985, L100.0100, L503.6030, L501.9520, L503.6550, L506.0400, L500.4050 ####[facility] [address] [place], [address] H AND P Exam - Hospitaliston 08-07-2024 H&P Exam - Hospitalist Normal [facility] Hemoglobin A1con 08-07-2024 HbA1c (Bld) [Mass fraction] 5.7 % High 3.8-5.6 [facility] Comment on above: Result Comment: Norm al < 5.7 % Prediabetic 5.7 - 6.4 % Diabetic >or= 6.5 % Please note range changes. Performed By: #### L 501.9985, L100.0100, L503.6030, L501.9520, L503.6550, L506.0400, L500.4050 ####[facility] [address] [place], [address] Iron+Iron Binding Capacityon 08-07-2024 Iron [Mass/Vol] 24 ug/dL Low 65-175 [facility] Comment on above: Performed By: #### L 501.9985, L100.0100, L503.6030, L501.9520, L503.6550, L506.0400, L500.4050 ####[facility] [address] [place], [address] IRON SATURATION 10.6 Low 15.0-55.0 [facility] Comment on above: Performed By: #### L 501.9985, L100.0100, L503.6030, L501.9520, L503.6550, L506.0400, L500.4050 ####[facility] [address] [place], [address] TIBC 227 ug/dL Low 250-450 [facility] Comment on above: Performed By: #### L 501.9985, L100.0100, L503.6030, L501.9520, L503.6550, L506.0400, L500.4050 ####[facility] [address] [place], [address] L501.4020on 08-07-2024 TROPONIN-I HS 733 pg/mL Invalid Interpretation Code 3.0-78.0 [facility] Comment on above: Order Comment: 'TROP ' Serial specimen #1, #2 or #3: 3 Result Comment: Crit ical Result(s) Called at: 02:13:46 08/07/2024 by:JOHN MANTILLA TO EMMANUEL PENA. Results read back bysame. Please Note: New Test Units and Gender Specific Reference Ranges. For more information see Policy Stat Procedure [place] High Sensitivity Troponin (TNIH) and attachments. Performed By: #### L 501.4020 ####[facility] [address] [place], [place], [address] Magnesiumon 08-07-2024 Magnesium [Mass/Vol] 2.1 mg/dL Normal 1.6-2.6 [facility] Comment on above: Order Comment: Comme nts: may add to ED labsComments: May add to ED labs Performed By: #### L 501.6710, L101.9900, L509.7000, L501.5200 ####[facility] [address] [place], [address] Procalcitoninon 08-07-2024 Procalcitonin 0.45 ng/mL High 0.00-0.09 [facility] Comment on above: Result Comment: A pr ocalcitonin (PCT) level above 2.0 ng/mL on the first day of ICU admission is associated with a high risk for progression to severe sepsis and/or septic shock. A PCT level below 0.5 ng/mL on the first day of ICU admission is associated with a low risk for progression to severe and/or septic shock. Note: Concentrations <0.5 ng/mL do not exclude an infection on account of localized infections (without systemic signs) which can be associated with such low concentrations, or a systemic infection in its initial stages (<6 hours). Furthermore, increased procalcitonin can occur without infection. PCT concentrations between 0.5 and 2.0 ng/mL should be interpreted taking into account the patient's history. It is recommended to retest PCT within 6-24 hours if any concentrations <2 ng/mL are obtained. Performed By: #### L 501.6710, L101.9900, L509.7000, L501.5200 ####[facility] [address] [place], [address] Stool Occult Blood iFOBon STOB Positive Normal [facility] Comment on above: Performed By: #### M 100.7900 ####[facility] [address] [place], [address] T4 Free Directon 08-07-2024 T4 FREE DIRECT 1.04 ng/dL Normal 0.76-1.46 [facility] Comment on above: Performed By: #### L 501.9985, L100.0100, L503.6030, L501.9520, L503.6550, L506.0400, L500.4050 ####[facility] [address] [place], [address] Thyroid Stim Hormone (TSH)on 08-07-2024 TSH 3.750 uIU/mL High 0.358-3.740 [facility] Comment on above: Performed By: #### L 501.9985, L100.0100, L503.6030, L501.9520, L503.6550, L506.0400, L500.4050 ####[facility] [address] [place], [address] Basic Metabolic Profile (BMP )on 08-06-2024 BUN/CRE 32.1 RATIO High 10-20 [facility] Comment on above: Order Comment: 1Y Performed By: #### L 501.5425, L500.2500, L300.4310, L300.3900, L100.0100 ####[facility] [address] [place], [address] CA,Total 9.1 mg/dL Normal 8.5-10.1 [facility] Comment on above: Order Comment: 1Y Performed By: #### L 501.5425, L500.2500, L300.4310, L300.3900, L100.0100 ####[facility] [address] [place], [address] Chloride [Moles/Vol] 113 mmol/L High 98-107 [facility] Comment on above: Order Comment: 1Y Performed By: #### L 501.5425, L500.2500, L300.4310, L300.3900, L100.0100 ####[facility] [address] [place], [address] CO2 [Moles/Vol] 21.0 mmol/L Normal 21.0-32.0 [facility] Comment on above: Order Comment: 1Y Performed By: #### L 501.5425, L500.2500, L300.4310, L300.3900, L100.0100 ####Access [facility] [address] [place], [address] Creatinine [Mass/Vol] 1.31 mg/dL High 0.70-1.30 [facility] Comment on above: Order Comment: 1Y Result Comment: The validity of the calculated GFR GFRAA in patients over70 years has not been determined. Clinical correlation isessential. Performed By: #### L 501.5425, L500.2500, L300.4310, L300.3900, L100.0100 ####[facility] [address] [place], [address] ECRCL 61.42 ml/min Normal [facility] Comment on above: Order Comment: 1Y Performed By: #### L 501.5425, L500.2500, L300.4310, L300.3900, L100.0100 ####[facility] [address] [place], [address] EST GFR - AA 68 mL/min Normal >60 [facility] Comment on above: Order Comment: 1Y Result Comment: Afri can Zimbabwean GFR Calc Performed By: #### L 501.5425, L500.2500, L300.4310, L300.3900, L100.0100 ####[facility] [address] [place], [address] GAP 7 Normal 5-15 [facility] Comment on above: Order Comment: 1Y Performed By: #### L 501.5425, L500.2500, L300.4310, L300.3900, L100.0100 ####[facility] [address] [place], [address] GFR/1.73 sq M.predicted among non-blacks MDRD (S/P/Bld) [Vol rate/Area] 56 mL/min/{1.73_m2} Low >60 [facility] Comment on above: Order Comment: 1Y Result Comment: Non- GFR Calc Performed By: #### L 501.5425, L500.2500, L300.4310, L300.3900, L100.0100 ####[facility] [address] [place], [address] Glucose [Mass/Vol] 142 mg/dL High 74-106 [facility] Comment on above: Order Comment: 1Y Result Comment: Fast ing Glucose result greater than or equal to 126 mg/dLsuggests DIABETES MELLITUS per A.D.A. criteria. Performed By: #### L 501.5425, L500.2500, L300.4310, L300.3900, L100.0100 ####[facility] [address] [place], [address] Potassium [Moles/Vol] 4.3 mmol/L Normal 3.5-5.1 [facility] Comment on above: Order Comment: 1Y Performed By: #### L 501.5425, L500.2500, L300.4310, L300.3900, L100.0100 ####[facility] [address] [place], [address] Sodium [Moles/Vol] 141 mmol/L Normal 136-145 [facility] Comment on above: Order Comment: 1Y Performed By: #### L 501.5425, L500.2500, L300.4310, L300.3900, L100.0100 ####[facility] [address] [place], [address] Urea nitrogen [Mass/Vol] 42 mg/dL High 7-18 [facility] Comment on above: Order Comment: 1Y Performed By: #### L 501.5425, L500.2500, L300.4310, L300.3900, L100.0100 ####[facility] [address] [place], [address] CBC W/Diff, Automatedon 07-21 Absolute Lymph 0.83 X10 3/uL Normal 0.83-4.51 [facility] Comment on above: Performed By: #### L 501.5425, L500.2500, L300.4310, L300.3900, L100.0100 ####[facility] [address] [place], [address] Absolute Neut 5.5 X10 3/uL Normal 2.0-7.7 [facility] Comment on above: Performed By: #### L 501.5425, L500.2500, L300.4310, L300.3900, L100.0100 ####[facility] [address] [place], [address] Basophils/100 WBC (Bld) 0.4 % Normal 0-1 [facility] Comment on above: Performed By: #### L 501.5425, L500.2500, L300.4310, L300.3900, L100.0100 ####[facility] [address] [place], [address] Eosinophils/100 WBC (Bld) 4.1 % Normal 0-5 [facility] Comment on above: Performed By: #### L 501.5425, L500.2500, L300.4310, L300.3900, L100.0100 ####[facility] [address] [place], [address] Erythrocyte distribution width (RBC) [Ratio] 13.2 % Normal 11.6-14.6 [facility] Comment on above: Performed By: #### L 501.5425, L500.2500, L300.4310, L300.3900, L100.0100 ####[facility] [address] [place], [address] Hematocrit (Bld) [Volume fraction] 38.0 % Low 40-54 [facility] Comment on above: Performed By: #### L 501.5425, L500.2500, L300.4310, L300.3900, L100.0100 ####[facility] [address] [place], [address] Hemoglobin (Bld) [Mass/Vol] 12.6 g/dL Low 13.0-16.5 [facility] Comment on above: Performed By: #### L 501.5425, L500.2500, L300.4310, L300.3900, L100.0100 ####[facility] [address] [place], [address] IG% 0.500 Normal 0.0-0.9 [facility] Comment on above: Result Comment: IG% - Immature Granulocytes (promyelocytes, myelocytes andmetamyelocytes) > 1% indicates that a LEFT SHIFT is Present. Performed By: #### L 501.5425, L500.2500, L300.4310, L300.3900, L100.0100 ####[facility] [address] [place], [address] Lymphocytes/100 WBC (Bld) 10.9 % Low 19-41 [facility] Comment on above: Performed By: #### L 501.5425, L500.2500, L300.4310, L300.3900, L100.0100 ####[facility] [address] [place], [address] MCH (RBC) [Entitic mass] 31.0 pg Normal 27.0-32.0 [facility] Comment on above: Performed By: #### L 501.5425, L500.2500, L300.4310, L300.3900, L100.0100 ####[facility] [address] [place], [address] MCHC (RBC) [Mass/Vol] 33.2 g/dL Normal 32-36 [facility] Comment on above: Performed By: #### L 501.5425, L500.2500, L300.4310, L300.3900, L100.0100 ####[facility] [address] [place], [address] MCV (RBC) [Entitic vol] 93.6 fL Normal 80-94 [facility] Comment on above: Performed By: #### L 501.5425, L500.2500, L300.4310, L300.3900, L100.0100 ####[facility] [address] [place], [address] Monocytes/100 WBC (Bld) 10.9 % High 0-10 [facility] Comment on above: Performed By: #### L 501.5425, L500.2500, L300.4310, L300.3900, L100.0100 ####[facility] [address] [place], [address] Neutrophils/100 WBC (Bld) 73.2 % High 47-70 [facility] Comment on above: Performed By: #### L 501.5425, L500.2500, L300.4310, L300.3900, L100.0100 ####[facility] [address] [place], [address] Nucleated RBC (Bld) [#/Vol] 0 10*3/uL Normal 0-5 [facility] Comment on above: Performed By: #### L 501.5425, L500.2500, L300.4310, L300.3900, L100.0100 ####[facility] [address] [place], [address] Platelet mean volume (Bld) [Entitic vol] 10.6 fL Normal 6.2-12.0 [facility] Comment on above: Performed By: #### L 501.5425, L500.2500, L300.4310, L300.3900, L100.0100 ####[facility] [address] [place], [address] Platelets (Bld) [#/Vol] 200 10*3/uL Normal 150-450 [facility] Comment on above: Performed By: #### L 501.5425, L500.2500, L300.4310, L300.3900, L100.0100 ####[facility] [address] [place], [address] RBC (Bld) [#/Vol] 4.06 10*6/uL Low 4.6-6.2 [facility] Comment on above: Performed By: #### L 501.5425, L500.2500, L300.4310, L300.3900, L100.0100 ####[facility] [address] [place], [address] RDW SD 45.5 fl High 35.1-43.9 [facility] Comment on above: Performed By: #### L 501.5425, L500.2500, L300.4310, L300.3900, L100.0100 ####[facility] [address] [place], [address] WBC (Bld) [#/Vol] 7.6 10*3/uL Normal 4.4-11.0 [facility] Comment on above: Performed By: #### L 501.5425, L500.2500, L300.4310, L300.3900, L100.0100 ####[facility] [address] [place], [address] CTA Chest W/WO Contraston CTA Chest W/WO Contrast Normal [facility] Emergency Department Summary on 08-06-2024 Emergency Department Summary Normal [facility] L501.4020on 08-06-2024 TROPONIN-I HS 1139 pg/mL Invalid Interpretation Code 3.0-78.0 [facility] Comment on above: Result Comment: Plea se Note: New Test Units and Gender Specific Reference Ranges. For more information see Policy Stat Procedure [place] High Sensitivity Troponin (TNIH) and attachments. Performed By: #### L 501.4020 ####[facility] [address] [place], [address] L501.5425on 08-06-2024 TROPONIN-I HS 1146 pg/mL Invalid Interpretation Code 3.0-78.0 [facility] Comment on above: Order Comment: 1Y Result Comment: Plea se Note: New Test Units and Gender Specific Reference Ranges. For more information see Policy Stat Procedure [place] High Sensitivity Troponin (TNIH) and attachments. Performed By: #### L 501.5425, L500.2500, L300.4310, L300.3900, L100.0100 ####[facility] [address] [place], [address] Partial Thromboplast Timeon 08-06-2024 aPTT Coag (Bld) [Time] 34.8 s Normal 24.1-36.2 [facility] Comment on above: Performed By: #### L 501.5425, L500.2500, L300.4310, L300.3900, L100.0100 ####[facility] [address] [place], [address] Prothrombin Time w/INRon INR Coag (PPP) [Relative time] 1.1 {INR} Normal [facility] Comment on above: Performed By: #### L 501.5425, L500.2500, L300.4310, L300.3900, L100.0100 ####[facility] [address] [place], [address] PT Coag (PPP) [Time] 14.5 s Normal 11.7-14.9 [facility] Comment on above: Performed By: #### L 501.5425, L500.2500, L300.4310, L300.3900, L100.0100 ####[facility] [address] [place], [address] Discharge Instructionon 07-21 Discharge Instruction Normal [facility] Echo, Limited Studyon 2023 Echo, Limited Study Normal [facility] Basic Metabolic Profile (BMP )on 08-04-2024 BUN/CRE 32.7 RATIO High 10-20 [facility] Comment on above: Performed By: #### L 500.2500 ####[facility] [address] [place], [address] CA,Total 8.9 mg/dL Normal 8.5-10.1 [facility] Comment on above: Performed By: #### L 500.2500 ####[facility] [address] [place], [address] Chloride [Moles/Vol] 107 mmol/L Normal 98-107 [facility] Comment on above: Performed By: #### L 500.2500 ####[facility] [address] [place], [address] CO2 [Moles/Vol] 25.0 mmol/L Normal 21.0-32.0 [facility] Comment on above: Performed By: #### L 500.2500 ####[facility] [address] [place], [address] Creatinine [Mass/Vol] 1.13 mg/dL Normal 0.70-1.30 [facility] Comment on above: Result Comment: The validity of the calculated GFR GFRAA in patients over70 years has not been determined. Clinical correlation isessential. Performed By: #### L 500.2500 ####[facility] [address] [place], [address] ECRCL 70.81 ml/min Normal [facility] Comment on above: Performed By: #### L 500.2500 ####[facility] [address] [place], [address] EST GFR - AA 81 mL/min Normal >60 [facility] Comment on above: Result Comment: Afri can Zimbabwean GFR Calc Performed By: #### L 500.2500 ####[facility] [address] [place], [address] GAP 5 Normal 5-15 [facility] Comment on above: Performed By: #### L 500.2500 ####[facility] [address] [place], [address] GFR/1.73 sq M.predicted among non-blacks MDRD (S/P/Bld) [Vol rate/Area] 67 mL/min/{1.73_m2} Normal >60 [facility] Comment on above: Result Comment: Non- GFR Calc Performed By: #### L 500.2500 ####[facility] [address] [place], [address] Glucose [Mass/Vol] 118 mg/dL High 74-106 [facility] Comment on above: Result Comment: Fast ing Glucose result from 100 to 125 mg/dLsuggests IMPAIRED HOMEOSTASIS per A.D.A. criteria. Performed By: #### L 500.2500 ####[facility] [address] [place], [address] Potassium [Moles/Vol] 4.5 mmol/L Normal 3.5-5.1 [facility] Comment on above: Performed By: #### L 500.2500 ####[facility] [address] [place], [address] Sodium [Moles/Vol] 137 mmol/L Normal 136-145 [facility] Comment on above: Performed By: #### L 500.2500 ####[facility] [address] [place], [address] Urea nitrogen [Mass/Vol] 37 mg/dL High 7-18 [facility] Comment on above: Performed By: #### L 500.2500 ####[facility] [address] [place], [address] 12 Lead EKGon 08-03-2024 12 Lead EKG Normal [facility] 12 Lead EKG Normal [facility] Basic Metabolic Profile (BMP )on 08-03-2024 BUN/CRE 21.8 RATIO High 10-20 [facility] Comment on above: Order Comment: 1Y Performed By: #### L 500.2500, L501.2450, L501.5425, L500.3400 ####[facility] [address] [place], [address] CA,Total 9.3 mg/dL Normal 8.5-10.1 [facility] Comment on above: Order Comment: 1Y Performed By: #### L 500.2500, L501.2450, L501.5425, L500.3400 ####[facility] [address] [place], [address] Chloride [Moles/Vol] 107 mmol/L Normal 98-107 [facility] Comment on above: Order Comment: 1Y Performed By: #### L 500.2500, L501.2450, L501.5425, L500.3400 ####[facility] [address] [place], [address] CO2 [Moles/Vol] 25.0 mmol/L Normal 21.0-32.0 [facility] Comment on above: Order Comment: 1Y Performed By: #### L 500.2500, L501.2450, L501.5425, L500.3400 ####[facility] [address] [place], [address] Creatinine [Mass/Vol] 1.10 mg/dL Normal 0.70-1.30 [facility] Comment on above: Order Comment: 1Y Result Comment: The validity of the calculated GFR GFRAA in patients over70 years has not been determined. Clinical correlation isessential. Performed By: #### L 500.2500, L501.2450, L501.5425, L500.3400 ####[facility] [address] [place], [address] ECRCL 72.63 ml/min Normal [facility] Comment on above: Order Comment: 1Y Performed By: #### L 500.2500, L501.2450, L501.5425, L500.3400 ####[facility] [address] [place], [address] EST GFR - AA 83 mL/min Normal >60 [facility] Comment on above: Order Comment: 1Y Result Comment: Afri can [place]an GFR Calc Performed By: #### L 500.2500, L501.2450, L501.5425, L500.3400 ####[facility] [address] [place], [address] GAP 7 Normal 5-15 [facility] Comment on above: Order Comment: 1Y Performed By: #### L 500.2500, L501.2450, L501.5425, L500.3400 ####[facility] [address] [place], [address] GFR/1.73 sq M.predicted among non-blacks MDRD (S/P/Bld) [Vol rate/Area] 69 mL/min/{1.73_m2} Normal >60 [facility] Comment on above: Order Comment: 1Y Result Comment: Non- GFR Calc Performed By: #### L 500.2500, L501.2450, L501.5425, L500.3400 ####[facility] [address] [place], [address] Glucose [Mass/Vol] 165 mg/dL High 74-106 [facility] Comment on above: Order Comment: 1Y Result Comment: Fast ing Glucose result greater than or equal to 126 mg/dLsuggests DIABETES MELLITUS per A.D.A. criteria. Performed By: #### L 500.2500, L501.2450, L501.5425, L500.3400 ####[facility] [address] [place], [address] Potassium [Moles/Vol] 4.8 mmol/L Normal 3.5-5.1 [facility] Comment on above: Order Comment: 1Y Performed By: #### L 500.2500, L501.2450, L501.5425, L500.3400 ####[facility] [address] [place], [address] Sodium [Moles/Vol] 139 mmol/L Normal 136-145 [facility] Comment on above: Order Comment: 1Y Performed By: #### L 500.2500, L501.2450, L501.5425, L500.3400 ####[facility] [address] [place], [address] Urea nitrogen [Mass/Vol] 24 mg/dL High 7-18 [facility] Comment on above: Order Comment: 1Y Performed By: #### L 500.2500, L501.2450, L501.5425, L500.3400 ####[facility] [address] [place], [address] CBC W/Diff, Automatedon 09-11 23-2023 Absolute Lymph 0.60 X10 3/uL Low 0.83-4.51 [facility] Comment on above: Performed By: #### L 100.0100 ####[facility] [address] [place], [address] Absolute Neut 9.6 X10 3/uL High 2.0-7.7 [facility] Comment on above: Performed By: #### L 100.0100 ####[facility] [address] [place], [address] Basophils/100 WBC (Bld) 0.3 % Normal 0-1 [facility] Comment on above: Performed By: #### L 100.0100 ####[facility] [address] [place], [address] Eosinophils/100 WBC (Bld) 0.3 % Normal 0-5 [facility] Comment on above: Performed By: #### L 100.0100 ####[facility] [address] [place], [address] Erythrocyte distribution width (RBC) [Ratio] 12.8 % Normal 11.6-14.6 [facility] Comment on above: Performed By: #### L 100.0100 ####[facility] [address] [place], [address] Hematocrit (Bld) [Volume fraction] 45.5 % Normal 40-54 [facility] Comment on above: Performed By: #### L 100.0100 ####[facility] [address] [place], [address] Hemoglobin (Bld) [Mass/Vol] 15.0 g/dL Normal 13.0-16.5 [facility] Comment on above: Performed By: #### L 100.0100 ####[facility] [address] [place], [address] IG% 0.500 Normal 0.0-0.9 [facility] Comment on above: Result Comment: IG% - Immature Granulocytes (promyelocytes, myelocytes andmetamyelocytes) > 1% indicates that a LEFT SHIFT is Present. Performed By: #### L 100.0100 ####[facility] [address] [place], [address] Lymphocytes/100 WBC (Bld) 5.1 % Low 19-41 [facility] Comment on above: Performed By: #### L 100.0100 ####[facility] [address] [place], [address] MCH (RBC) [Entitic mass] 31.1 pg Normal 27.0-32.0 [facility] Comment on above: Performed By: #### L 100.0100 ####[facility] [address] [place], [address] MCHC (RBC) [Mass/Vol] 33.0 g/dL Normal 32-36 [facility] Comment on above: Performed By: #### L 100.0100 ####[facility] [address] [place], [address] MCV (RBC) [Entitic vol] 94.4 fL High 80-94 [facility] Comment on above: Performed By: #### L 100.0100 ####[facility] [address] [place], [address] Monocytes/100 WBC (Bld) 12.3 % High 0-10 [facility] Comment on above: Performed By: #### L 100.0100 ####[facility] [address] [place], [address] Neutrophils/100 WBC (Bld) 81.5 % High 47-70 [facility] Comment on above: Performed By: #### L 100.0100 ####[facility] [address] [place], [address] Nucleated RBC (Bld) [#/Vol] 0 10*3/uL Normal 0-5 [facility] Comment on above: Performed By: #### L 100.0100 ####[facility] [address] [place], [address] Platelet mean volume (Bld) [Entitic vol] 9.7 fL Normal 6.2-12.0 [facility] Comment on above: Performed By: #### L 100.0100 ####[facility] [address] [place], [address] Platelets (Bld) [#/Vol] 209 10*3/uL Normal 150-450 [facility] Comment on above: Performed By: #### L 100.0100 ####[facility] [address] [place], [address] RBC (Bld) [#/Vol] 4.82 10*6/uL Normal 4.6-6.2 [facility] Comment on above: Performed By: #### L 100.0100 ####[facility] [address] [place], [address] RDW SD 44.0 fl High 35.1-43.9 [facility] Comment on above: Performed By: #### L 100.0100 ####[facility] [address] [place], [address] WBC (Bld) [#/Vol] 11.8 10*3/uL High 4.4-11.0 [facility] Comment on above: Performed By: #### L 100.0100 ####[facility] [address] [place], [address] CRPon 08-03-2024 C-REACTIVE PROT 8.46 mg/L High 0.0-3.0 [facility] Comment on above: Result Comment: C-Re active Protein (CRP) provides useful information for thediagnosis, therapy and monitoring of inflammatory processesand associated diseases. For the evaluation of Relative Riskfor Cardiovascular Disease, a High Sensitivity CRP (HSCRP)should be ordered. Performed By: #### L 101.9900, L501.6710 ####[facility] [address] [place], [address] CTA Chest W/WO Contraston CTA Chest W/WO Contrast Normal [facility] Chest 1 View (Portable)on Chest 1 View (Portable) Normal [facility] Consultation - Cardiologyon 08-03-2024 Consultation - Cardiology Normal [facility] D-Dimer Quantitative (DVT/PE )on 08-03-2024 D-DIMER QUANT 0.70 FEU/ug/m Invalid Interpretation Code 0.27-0.49 [facility] Comment on above: Result Comment: D-Di scott ELEVATED (>0.49): Additional studies and clinicalassessments are indicated to conclude diagnosis of:Deep Vein Thrombosis (DVT) or Pulmonary Embolism (PE)CRITICAL VALUE CALLED TO PFYL08/03/24 0910 Aylin Martino.RESULTS READ BACK BY SAME. Performed By: #### L 300.8000 ####[facility] [address] [place], [address] Echo Completeon 08-03-2024 Echo Complete Normal [facility] Emergency Department Summary on 08-03-2024 Emergency Department Summary Normal [facility] Erythrocyte Sed Rateon 08-03 SED RATE 5 mm/hr Normal 0-20 [facility] Comment on above: Performed By: #### L 101.9900, L501.6710 ####[facility] [address] [place], [address] H AND P Exam - Hospitaliston 08-03-2024 H&P Exam - Hospitalist Normal [facility] L501.4020on 08-03-2024 TROPONIN-I HS 9 pg/mL Normal 3.0-78.0 [facility] Comment on above: Result Comment: Xena luther Note: New Test Units and Gender Specific Reference Ranges. For more information see Policy Stat Procedure [place] High Sensitivity Troponin (TNIH) and attachments. Performed By: #### L 501.4020 ####[facility] [address] [place], [address] L501.5425on 08-03-2024 TROPONIN-I HS 10 pg/mL Normal 3.0-78.0 [facility] Comment on above: Order Comment: 1Y Result Comment: Xena luther Note: New Test Units and Gender Specific Reference Ranges. For more information see Policy Stat Procedure [place] High Sensitivity Troponin (TNIH) and attachments. Performed By: #### L 500.2500, L501.2450, L501.5425, L500.3400 ####[facility] [address] [place], [address] Lipaseon 08-03-2024 Lipase [Catalytic activity/Vol] 48 U/L Normal 13-75 [facility] Comment on above: Order Comment: 1Y Result Comment: Xena luther note:LIPASE revised reference range effective 23.New Lipase methodology. Expected to produce lower valuesthan the previous assay method.NEW Reference Range: 13 - 75 U/L Performed By: #### L 500.2500, L501.2450, L501.5425, L500.3400 ####[facility] [address] [place], [address] Liver Profileon 08-03-2024 Albumin [Mass/Vol] 3.3 g/dL Normal 3.2-5.0 [facility] Comment on above: Order Comment: 1Y Performed By: #### L 500.2500, L501.2450, L501.5425, L500.3400 ####[facility] [address] [place], [address] ALK P 93 U/L Normal 45-117 [facility] Comment on above: Order Comment: 1Y Performed By: #### L 500.2500, L501.2450, L501.5425, L500.3400 ####[facility] [address] [place], [address] ALT [Catalytic activity/Vol] 29 U/L Normal 16-61 [facility] Comment on above: Order Comment: 1Y Performed By: #### L 500.2500, L501.2450, L501.5425, L500.3400 ####[facility] [address] [place], [address] AST [Catalytic activity/Vol] 23 U/L Normal 15-37 [facility] Comment on above: Order Comment: 1Y Performed By: #### L 500.2500, L501.2450, L501.5425, L500.3400 ####[facility] [address] [place], [address] Bilirubin [Mass/Vol] 0.90 mg/dL Normal 0.20-1.00 [facility] Comment on above: Order Comment: 1Y Result Comment: For patients on eltrombopag therapy, use of Dimension [place] TBIL is not recommended. Performed By: #### L 500.2500, L501.2450, L501.5425, L500.3400 ####[facility] [address] [place], [address] Bilirubin.direct [Mass/Vol] 0.25 mg/dL Normal 0.00-0.30 [facility] Comment on above: Order Comment: 1Y Performed By: #### L 500.2500, L501.2450, L501.5425, L500.3400 ####[facility] [address] [place], [address] Globulin (S) [Mass/Vol] 3.3 g/dL Normal 2.2-4.2 [facility] Comment on above: Order Comment: 1Y Performed By: #### L 500.2500, L501.2450, L501.5425, L500.3400 ####[facility] [address] [place], [address] T PROT 6.6 g/dL Normal 6.4-8.2 [facility] Comment on above: Order Comment: 1Y Performed By: #### L 500.2500, L501.2450, L501.5425, L500.3400 ####[facility] [address] [place], [address] Stress Reporton 07-10-2024 Stress Report Normal [facility] Carotid Duplex Ultrasoundon 07-08-2024 Carotid Duplex Ultrasound Normal [facility] Basic Metabolic Profile (BMP )on 06-17-2024 BUN/CRE 34.6 RATIO High 10-20 [facility] Comment on above: Performed By: #### L 500.2500, L100.0100 ####[facility] [address] [place], [address] CA,Total 9.5 mg/dL Normal 8.5-10.1 [facility] Comment on above: Performed By: #### L 500.2500, L100.0100 ####[facility] [address] [place], [address] Chloride [Moles/Vol] 108 mmol/L High 98-107 [facility] Comment on above: Performed By: #### L 500.2500, L100.0100 ####[facility] [address] [place], [address] CO2 [Moles/Vol] 26.0 mmol/L Normal 21.0-32.0 [facility] Comment on above: Performed By: #### L 500.2500, L100.0100 ####[facility] [address] [place], [address] Creatinine [Mass/Vol] 1.07 mg/dL Normal 0.70-1.30 [facility] Comment on above: Result Comment: The validity of the calculated GFR GFRAA in patients over70 years has not been determined. Clinical correlation isessential. Performed By: #### L 500.2500, L100.0100 ####[facility] [address] [place], [address] EST GFR - AA 86 mL/min Normal >60 [facility] Comment on above: Result Comment: Afri can Zimbabwean GFR Calc Performed By: #### L 500.2500, L100.0100 ####[facility] [address] [place], [address] GAP 4 Low 5-15 [facility] Comment on above: Performed By: #### L 500.2500, L100.0100 ####[facility] [address] [place], [address] GFR/1.73 sq M.predicted among non-blacks MDRD (S/P/Bld) [Vol rate/Area] 71 mL/min/{1.73_m2} Normal >60 [facility] Comment on above: Result Comment: Non- GFR Calc Performed By: #### L 500.2500, L100.0100 ####[facility] [address] [place], [address] Glucose [Mass/Vol] 98 mg/dL Normal 74-106 [facility] Comment on above: Performed By: #### L 500.2500, L100.0100 ####[facility] [address] [place], [address] Potassium [Moles/Vol] 4.9 mmol/L Normal 3.5-5.1 [facility] Comment on above: Performed By: #### L 500.2500, L100.0100 ####[facility] [address] [place], [address] Sodium [Moles/Vol] 138 mmol/L Normal 136-145 [facility] Comment on above: Performed By: #### L 500.2500, L100.0100 ####[facility] [address] [place], [address] Urea nitrogen [Mass/Vol] 37 mg/dL High 7-18 [facility] Comment on above: Performed By: #### L 500.2500, L100.0100 ####[facility] [address] [place], [address] CBC W/Diff, Automatedon 05-21 Absolute Lymph 1.44 X10 3/uL Normal 0.83-4.51 [facility] Comment on above: Performed By: #### L 500.2500, L100.0100 ####[facility] [address] [place], [address] Absolute Neut 4.4 X10 3/uL Normal 2.0-7.7 [facility] Comment on above: Performed By: #### L 500.2500, L100.0100 ####[facility] [address] [place], [address] Basophils/100 WBC (Bld) 1.0 % Normal 0-1 [facility] Comment on above: Performed By: #### L 500.2500, L100.0100 ####[facility] [address] [place], [address] Eosinophils/100 WBC (Bld) 3.3 % Normal 0-5 [facility] Comment on above: Performed By: #### L 500.2500, L100.0100 ####[facility] [address] [place], [address] Erythrocyte distribution width (RBC) [Ratio] 12.2 % Normal 11.6-14.6 [facility] Comment on above: Performed By: #### L 500.2500, L100.0100 ####[facility] [address] [place], [address] Hematocrit (Bld) [Volume fraction] 44.1 % Normal 40-54 [facility] Comment on above: Performed By: #### L 500.2500, L100.0100 ####[facility] [address] [place], [address] Hemoglobin (Bld) [Mass/Vol] 14.3 g/dL Normal 13.0-16.5 [facility] Comment on above: Performed By: #### L 500.2500, L100.0100 ####[facility] [address] [place], [address] IG% 2.700 High 0.0-0.9 [facility] Comment on above: Result Comment: IG% - Immature Granulocytes (promyelocytes, myelocytes andmetamyelocytes) > 1% indicates that a LEFT SHIFT is Present. Performed By: #### L 500.2500, L100.0100 ####[facility] [address] [place], [address] Lymphocytes/100 WBC (Bld) 19.6 % Normal 19-41 [facility] Comment on above: Performed By: #### L 500.2500, L100.0100 ####[facility] [address] [place], [address] MCH (RBC) [Entitic mass] 30.8 pg Normal 27.0-32.0 [facility] Comment on above: Performed By: #### L 500.2500, L100.0100 ####[facility] [address] [place], [address] MCHC (RBC) [Mass/Vol] 32.4 g/dL Normal 32-36 [facility] Comment on above: Performed By: #### L 500.2500, L100.0100 ####[facility] [address] [place], [address] MCV (RBC) [Entitic vol] 94.8 fL High 80-94 [facility] Comment on above: Performed By: #### L 500.2500, L100.0100 ####[facility] [address] [place], [address] Monocytes/100 WBC (Bld) 13.0 % High 0-10 [facility] Comment on above: Performed By: #### L 500.2500, L100.0100 ####[facility] [address] [place], [address] Neutrophils/100 WBC (Bld) 60.4 % Normal 47-70 [facility] Comment on above: Performed By: #### L 500.2500, L100.0100 ####[facility] [address] [place], [address] Nucleated RBC (Bld) [#/Vol] 0 10*3/uL Normal 0-5 [facility] Comment on above: Performed By: #### L 500.2500, L100.0100 ####[facility] [address] [place], [address] Platelet mean volume (Bld) [Entitic vol] 9.6 fL Normal 6.2-12.0 [facility] Comment on above: Performed By: #### L 500.2500, L100.0100 ####[facility] [address] [place], [address] Platelets (Bld) [#/Vol] 313 10*3/uL Normal 150-450 [facility] Comment on above: Performed By: #### L 500.2500, L100.0100 ####[facility] [address] [place], [address] RBC (Bld) [#/Vol] 4.65 10*6/uL Normal 4.6-6.2 [facility] Comment on above: Performed By: #### L 500.2500, L100.0100 ####[facility] [address] [place], [address] RDW SD 42.5 fl Normal 35.1-43.9 [facility] Comment on above: Performed By: #### L 500.2500, L100.0100 ####[facility] [address] [place], [address] WBC (Bld) [#/Vol] 7.3 10*3/uL Normal 4.4-11.0 [facility] Comment on above: Performed By: #### L 500.2500, L100.0100 ####[facility] [address] [place], [address] FUNDUS PHOTOGRAPHY-OU*on FUNDUS PHOTOGRAPHY-OU* Right Eye Clear. Disc findings include normal observations. Vessel findings include normal. Macula findings include RPE mottling. Laser, Nevus. Interval change is same. Recommendation for management is to observe. Left Eye Hazy. Disc findings include normal observations. Vessel findings include normal. Macula findings include drusen. Normal. Interval change is same. Recommendation for management is to observe. Normal [facility] Right Eye Clear. Disc findings include normal observations. Vessel findings include normal. Macula findings include RPE mottling. Laser, Nevus. Interval change is same. Recommendation for management is to observe. Left Eye Hazy. Disc findings include normal observations. Vessel findings include normal. Macula findings include drusen. Normal. Interval change is same. Recommendation for management is to observe. ORDEROUT [facility] Radiology Study observation (narrative) [facility] OCT/HRT MACULA OU*on 024 OCT/HRT MACULA OU* Right Eye Quality was good. Findings include normal observations. Interval change is same. Recommendation for management is to observe. Left Eye Quality was good. Findings include normal observations. Interval change is same. Recommendation for management is to observe. Normal [facility] Right Eye Quality was good. Findings include normal observations. Interval change is same. Recommendation for management is to observe. Left Eye Quality was good. Findings include normal observations. Interval change is same. Recommendation for management is to observe. [facility] (narrative) [facility] Comprehensive metabolic 2000 panelon 04-08-2024 Albumin BCP dye [Mass/Vol] 3.9 g/dL Normal 3.4-5.0 [facility] Comment on above: Performed By: #### 2 4323-8 #### MYLES MYRICK ([id number]) [facility] ([facility]) [address] [place] [address] ALP [Catalytic activity/Vol] 81 U/L Normal 33-136 [facility] Comment on above: Performed By: #### 2 4323-8 #### MYLES MYRICK ([id number]) [facility] ([facility]) [address] [place] [address] ALT With P-5'-P [Catalytic activity/Vol] 18 U/L Normal 10-52 [facility] Comment on above: Result Comment: Trisha ents treated with Sulfasalazine may generate falsely decreased results for ALT. Performed By: #### 2 4323-8 #### MYLES MYRICK ([id number]) [facility] ([facility]) [address] [place] [address] Anion gap [Moles/Vol] 14 mmol/L Normal 10-20 [facility] Comment on above: Performed By: #### 2 4323-8 #### MYLES MYRICK ([id number]) [facility] ([facility]) [facility] [place] [address] AST With P-5'-P [Catalytic activity/Vol] 19 U/L Normal 9-39 [facility] Comment on above: Performed By: #### 2 4323-8 #### MYLES MYRICK ([id number]) [facility] ([facility]) [address] [place] [address] Bilirubin [Mass/Vol] 0.7 mg/dL Normal 0.0-1.2 [place] Comment on above: Performed By: #### 2 4323-8 #### MYLES MYRICK ([id number]) [facility] ([facility]) [address] [place] [address] Calcium [Mass/Vol] 9.3 mg/dL Normal 8.6-10.3 [facility] Comment on above: Performed By: #### 2 4323-8 #### MYLES MYRICK ([id number]) [facility] ([facility]) [address] [place] [address] Chloride [Moles/Vol] 106 mmol/L Normal 98-107 [place] Comment on above: Performed By: #### 2 4323-8 #### MYLES MYRICK ([id number]) [facility] ([facility]) [address] [place] [address] CO2 [Moles/Vol] 24 mmol/L Normal 21-32 [facility] Comment on above: Performed By: #### 2 4323-8 #### MYLES MYRICK ([id number]) [facility] ([facility]) [address] [place] [address] Creatinine [Mass/Vol] 0.99 mg/dL Normal 0.50-1.30 [facility] Comment on above: Performed By: #### 2 4323-8 #### MYLES MYRICK ([id number]) [facility] ([facility]) [address] [place] [address] Glomerular filtration rate/1.73 sq M.predicted 79 mL/min/1.73m*2 Normal >60 [facility] Comment on above: Result Comment: Calc ulations of estimated GFR are performed using the 2020 CKD-EPI Study Refit equation without the race variable for the IDMS-Traceable creatinine methods. https://jasn.asnjournals.org/content/early//ASN.2020 479964 Performed By: #### 2 4323-8 #### MYLES MYRICK ([id number]) [facility] ([facility]) [address] [place] [address] Glucose [Mass/Vol] 132 mg/dL High 74-99 [facility] Comment on above: Performed By: #### 2 4323-8 #### YMLES MYRICK ([id number]) [facility] ([facility]) [address] [place] [address] Potassium [Moles/Vol] 4.5 mmol/L Normal 3.5-5.3 [facility] Comment on above: Performed By: #### 2 4323-8 #### MYLES MYRICK ([id number]) [facility] ([facility]) [address] [place] [address] Protein [Mass/Vol] 5.8 g/dL Low 6.4-8.2 [facility] Comment on above: Performed By: #### 2 4323-8 #### MYLES MYRICK ([id number]) [facility] ([facility]) [address] [place] [address] Sodium [Moles/Vol] 139 mmol/L Normal 136-145 [facility] Comment on above: Performed By: #### 2 4323-8 #### MYLES MYRICK ([id number]) [facility] ([facility]) [address] [place] [address] Urea nitrogen [Mass/Vol] 27 mg/dL High 6-23 [facility] Comment on above: Performed By: #### 2 4323-8 #### MYLES MYRICK ([id number]) [facility] ([facility]) [address] [place] [address] CORNEAL TOPOGRAPHY OU*on Baseline, Good Quality, Minimal Astigmatism RADIOLOGY [facility] CORNEAL TOPOGRAPHY-OUon CORNEAL TOPOGRAPHY-OU Baseline, Good Quality, Minimal Astigmatism Normal [facility] FUNDUS PHOTOGRAPHY-OUon FUNDUS PHOTOGRAPHY-OU Right Eye Clear. Disc findings include normal observations. Vessel findings include normal. Macula findings include RPE mottling. Pigmentary Change, Reticular Degeneration, Laser. Interval change is baseline. Recommendation for management is to schedule surgery. Left Eye Hazy. Disc findings include normal observations. Vessel findings include normal. Macula findings include drusen. Reticular Degeneration, Pigmentary Change. Interval change is baseline. Recommendation for management is to observe. Normal [facility] Right Eye Clear. Disc findings include normal observations. Vessel findings include normal. Macula findings include RPE mottling. Pigmentary Change, Reticular Degeneration, Laser. Interval change is baseline. Recommendation for management is to schedule surgery. Left Eye Hazy. Disc findings include normal observations. Vessel findings include normal. Macula findings include drusen. Reticular Degeneration, Pigmentary Change. Interval change is baseline. Recommendation for management is to observe. RADIOLOGY [facility] IOL MASTER OUon 03-20-2024 IOL MASTER OU AKREOS 16.00 Diopter s (-0.38) Right Eye Normal [facility] AKREOS 16.00 Diopter s (-0.38) Right Eye RADIOLOGY [facility] OCT/HRT MACULA OUon 03-20-20 [facility] No Panel Informationon 03-14 Radiology Study observation (narrative) [facility] Basophil percentageOrdered B y: Alfredo Vasquez on 03-07-2024 Chloride [Moles/Vol] 108 mmol/L 98-107 [facility] Cholesterol [Mass/Vol] 198 mg/dL <200 [facility] Comment on above: <200 mg/dL Desirable 200-240 mg/dL Borderline >240 mg/dL High Risk Glucose [Mass/Vol] 97 mg/dL 74-106 [facility] Potassium [Moles/Vol] 4.3 mmol/L 3.5-5.1 [facility] Sodium [Moles/Vol] 139 mmol/L 136-145 [facility] Triglyceride [Mass/Vol] 209 mg/dL <199 [facility] Comment on above: The drugs N-Acetylcy steine and Metamizole may falsely depress this assay.Serum Triglycerides Reference Interval Normal <150 mg/dL Borderline high 150 - 199 mg/dL High 200 - 499 mg/dL Very High > or = 500 mg/dL Laboratory - Chemistry and C hemistry - challengeOrdered By: Alfredo Vasquez on 03-07-2024 Cholesterol in HDL [Mass/Vol] 48 mg/dL >40 [facility] Comment on above: The drugs N-Acetylcy steine and Metamizole may falsely depress this assay. Reference Range HDL <40 mg/dL Low HDL Cholesterol HDL >or= 60 mg/dL High HDL Cholesterol Cholesterol in LDL [Mass/Vol] 108 mg/dL 0-130 [facility] CO2 [Moles/Vol] 25.0 mmol/L 21.0-32.0 [facility] Urea nitrogen/Creatinine [Mass ratio] 28.8 mg/mg 10-20 [facility] No Panel InformationOrdered By: Alfredo Vasquez on 03-07-2024 Estimated GFR (MDRD) Amer 100 mL/min >60 [facility] Comment on above: GFR Calc Estimated GFR (MDRD) Non-Af Amer 83 mL/min >60 [facility] Comment on above: Non- GFR Calc Prostate Specific Antigen Screen 2.26 ng/mL 0.00-4.00 [facility] Comment on above: This test was perfor med using the TPSA assay method for [employer] chemistry system. Values obtained with differentassay methods cannot be used interchangably.When changing PSA assays in the course of monitoring apatient, additional sequential testing should be carriedout to confirm baseline values. VLDL Cholesterol 42 mg/dL 5-40 [facility] Serum or plasma calcium dex urement (mass/volume)Ordered By: Alfredo Vasquez on 03-07-2024 Calcium [Mass/Vol] 10.0 mg/dL 8.5-10.1 [facility] Serum or plasma creatinine m easurement (mass/volume)Ordered By: Alfredo Vasquez on 03-07-2024 Creatinine [Mass/Vol] 0.94 mg/dL 0.70-1.30 [facility] Comment on above: The validity of the calculated GFR & GFRAA in patients over 70 years has not been determined. Clinical correlation is essential. Serum or plasma urea nitroge n measurement (mass/volume)Ordered By: Alfredo Vasquez on 03-07-2024 Urea nitrogen [Mass/Vol] 27 mg/dL 06-06 [facility] Thin prep Papanicolaou smear with manual screeningOrdered By: Alfredo Vasquez on 03-07-2024 Thin prep Papanicolaou smear with manual screening 6 04-03 [facility] Basophil percentageOrdered B y: Daisy Philippe on 08-16-2023 Bilirubin [Mass/Vol] 0.60 mg/dL 0.20-1.00 [facility] Comment on above: For patients on eltr ombopag therapy, use of Dimension [place] TBIL is not recommended. Chloride [Moles/Vol] 106 mmol/L 98-107 [facility] Cholesterol [Mass/Vol] 160 mg/dL <200 [facility] Comment on above: <200 mg/dL Desirable 200-240 mg/dL Borderline >240 mg/dL High Risk Glucose [Mass/Vol] 95 mg/dL 74-106 [facility] Potassium [Moles/Vol] 4.4 mmol/L 3.5-5.1 [facility] Protein [Mass/Vol] 6.6 g/dL 6.4-8.2 [facility] Sodium [Moles/Vol] 137 mmol/L 136-145 [facility] Triglyceride [Mass/Vol] 195 mg/dL <199 [facility] Comment on above: The drugs N-Acetylcy steine and Metamizole may falsely depress this assay.Serum Triglycerides Reference Interval Normal <150 mg/dL Borderline high 150 - 199 mg/dL High 200 - 499 mg/dL Very High > or = 500 mg/dL Laboratory - Chemistry and C hemistry - challengeOrdered By: Daisy Philippe on 08-16-2023 ALP [Catalytic activity/Vol] 99 U/L 45-117 [facility] ALT [Catalytic activity/Vol] 35 U/L 16-61 [facility] CO2 [Moles/Vol] 28.0 mmol/L 21.0-32.0 [facility] Globulin (S) [Mass/Vol] 3.2 g/dL 2.2-4.2 [facility] Urea nitrogen/Creatinine [Mass ratio] 24.4 mg/mg 10-20 [facility] No Panel InformationOrdered By: Daisy Philippe on 08-16-2023 Estimated GFR (MDRD) Amer 100 mL/min >60 [facility] Comment on above: GFR Calc Estimated GFR (MDRD) Non-Af Amer 83 mL/min >60 [facility] Comment on above: Non- GFR Calc Serum or plasma albumin dex urement (mass/volume)Ordered By: Daisy Philippe on 08-16-2023 Albumin [Mass/Vol] 3.4 g/dL 3.2-5.0 [facility] Serum or plasma albumin/glob ulin mass ratioOrdered By: Daisy Philippe on 08-16-2023 Albumin/Globulin [Mass ratio] 1.1 {ratio} 0.9-2.4 [facility] Serum or plasma calcium dex urement (mass/volume)Ordered By: Daisy Philippe on 08-16-2023 Calcium [Mass/Vol] 9.2 mg/dL 8.5-10.1 [facility] Serum or plasma cholesterol in HDL measurement (mass/volume)Ordered By: Daisy Philippe on 08-16-2023 Cholesterol in HDL [Mass/Vol] 43 mg/dL >40 [facility] Comment on above: The drugs N-Acetylcy steine and Metamizole may falsely depress this assay. Reference Range HDL <40 mg/dL Low HDL Cholesterol HDL >or= 60 mg/dL High HDL Cholesterol Serum or plasma cholesterol in VLDL measurement (mass/volume)Ordered By: Daisy Philippe on 08-16-2023 Cholesterol in VLDL [Mass/Vol] 39 mg/dL 5-40 [facility] Serum or plasma creatinine m easurement (mass/volume)Ordered By: Daisy Philippe on 08-16-2023 Creatinine [Mass/Vol] 0.94 mg/dL 0.70-1.30 [facility] Comment on above: The validity of the calculated GFR & GFRAA in patients over 70 years has not been determined. Clinical correlation is essential. Serum or plasma low density lipoprotein (LDL) cholesterol measurement (mass/volume)Ordered By: Daisy Philippe on 08-16-2023 Cholesterol in LDL [Mass/Vol] 78 mg/dL 0-130 [facility] Serum or plasma urea nitroge n measurement (mass/volume)Ordered By: Daisy Philippe on 08-16-2023 Urea nitrogen [Mass/Vol] 23 mg/dL 7-18 [facility] Thin prep Papanicolaou smear with manual screeningOrdered By: Daisy Philippe on 08-16-2023 Thin prep Papanicolaou smear with manual screening 22 U/L 15-37 [facility] Thin prep Papanicolaou smear with manual screening 3 5-15 [facility] Established Visit (Otolaryng ology)on 07-27-2023 Established Visit (Otolaryngology) Diagnoses/Problems Dizziness (780.4) (R42) Orders Start: Sertraline HCl - 25 MG Oral Tablet; Take 1 tablet daily at night Chief Complaint follow up vestibular issues Adult Risk ScreeningAdult Risk Screening_: There are no spiritual/cultural practices/values/needs that are important to know Initial Fall Risk Screening: BHAVNA has not fallen in the last 6 months. His fall did not result in injury. BHAVNA does not have a fear of falling. He does not need assistance with sitting, standing or walking. Does not need assistance walking in his home. He does not need assistance in an unfamiliar setting. The patient is not using an assistive device. Pain Scale: On a scale of 0 to 10, the patient rates the pain at 0. Tobacco Screening: BHAVNA does not use tobacco. The patient is comfortable filling out medical forms. History of Present Illness History of present illness from 03/17/2023: Bhavna Roca is a 77-year-old man who presents today with significant disequilibrium. He has a history of bilateral cochlear implantation, most recently in 2009. 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 He has been previously seen and evaluated by Dr. Riley. He has had a VNG from the [facility], which suggests significant right-sided vestibulopathy. A subsequent VNG here shows a significant right-sided weakness, but functional left-sided vestibular system. While MRI and CT are unavailable, reportedly the CT demonstrated right canal plugging. The MRI in the past was reportedly negative for any evidence of retrocochlear pathology. More recently, he was started on migraine therapy with nortriptyline approximately 1 year ago. He reports that he had significant improvement in his disequilibrium and balance with the nortriptyline. However, he reports that in the past several months he feels that his equilibrium is worse again. He reports that he has daily disequilibrium, which is worse with sudden movements and with bumps in the car. He denies difficulty with visual symptoms or complex patterns. He denies any significant headache component. He does have significant difficulty walking in the dark. However, he does not report any oscillopsia. He also has peripheral neuropathy and has a history of retinal issues. Interval History from 05/12/2023: He reports persistent symptoms. He reports daily dizziness that is worsened with complex visual patterns and movements. Interval History: He reports that he has been switched from nortryptilene to amytryptilene in the interim, with significant worsening in his symptoms. He still has daily dizziness that is worsened with complex visual patterns. He went back to vestibular therapy, who did not see any significant improvement from his last session. The patient?s current medications, active allergies and list of medical problems were reviewed in the EHR and confirmed electronically. Physical Examination: CONSTITUTIONAL: No acute distress VOICE: No hoarseness or other abnormality RESPIRATION: Breathing comfortably, no stridor CV: No clubbing/cyanosis/moo a in hands EYES: EOM intact, sclera clear NEURO: Alert and oriented times 3, Cranial nerves II-XII grossly intact and symmetric bilaterally HEAD AND FACE: Symmetric facial features, no masses or lesions SALIVARY GLANDS: Parotid and submandibular glands normal bilaterally RIGHT EAR: Normal external ear and post auricular area, no visible lesions, external auditory canal patent, tympanic membrane intact, no retraction, no signs of mass, effusion, or infection within the middle ear LEFT EAR: Normal external ear and post auricular area, no visible lesions, external auditory canal patent, tympanic membrane intact, no retraction, no signs of mass, effusion, or infection within the middle ear NOSE: External nose midline, ORAL CAVITY/OROPHARYNX/LIPS : Normal mucous membranes, normal floor of mouth/tongue/OP, no masses or lesions PHARYNGEAL LEAHY: No masses or lesions NECK/LYMPH: No LAD, no thyroid masses, trachea midline SKIN: Neck and facial skin is without scar or injury PSYCH: Alert and oriented with appropriate mood and affect Diagnostic testing: I reviewed the patient's prior VNG, which demonstrates a right-sided peripheral weakness. 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 Recommendation: I discussed treatment options including continuing his trial of amytryptilene vs. weaning the amytryptilene to start sertraline. He would like to try the SSRI treatment. I discussed the risks of side effects of sertraline. He will wean off amytryptilene with half dose for the next week, then one week without amytryptilene. Then (more content not included)... 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 BHAVNA does not have a fear of falling. He does not need assistance with sitting, standing or walking. Does not need assistance walking in his home. He does not need assistance in an unfamiliar setting. The patient is not using an assistive device. Pain Scale: On a scale of 0 to 10, the patient rates the pain at 0. Tobacco Screening: BHAVNA does not use tobacco. Has not used tobacco in the past 6 months. History of Present Illness History of present illness from 03/17/2023: Bhavna Roca is a 77-year-old man who presents today with significant disequilibrium. He has a history of bilateral cochlear implantation, most recently in 2009. 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 He has been previously seen and evaluated by Dr. Riley. He has had a VNG from the [facility], which suggests significant right-sided vestibulopathy. A subsequent VNG here shows a significant right-sided weakness, but functional left-sided vestibular system. While MRI and CT are unavailable, reportedly the CT demonstrated right canal plugging. The MRI in the past was reportedly negative for any evidence of retrocochlear pathology. More recently, he was started on migraine therapy with nortriptyline approximately 1 year ago. He reports that he had significant improvement in his disequilibrium and balance with the nortriptyline. However, he reports that in the past several months he feels that his equilibrium is worse again. He reports that he has daily disequilibrium, which is worse with sudden movements and with bumps in the car. He denies difficulty with visual symptoms or complex patterns. He denies any significant headache component. He does have significant difficulty walking in the dark. However, he does not report any oscillopsia. He also has peripheral neuropathy and has a history of retinal issues. Interval History: He reports persistent symptoms. He reports daily dizziness that is worsened with complex visual patterns and movements. The patient?s current medications, active allergies and list of medical problems were reviewed in the EHR and confirmed electronically. Physical Examination: CONSTITUTIONAL: No acute distress VOICE: No hoarseness or other abnormality RESPIRATION: Breathing comfortably, no stridor CV: No clubbing/cyanosis/moo a in hands EYES: EOM intact, sclera clear NEURO: Alert and oriented times 3, Cranial nerves II-XII grossly intact and symmetric bilaterally HEAD AND FACE: Symmetric facial features, no masses or lesions SALIVARY GLANDS: Parotid and submandibular glands normal bilaterally RIGHT EAR: Normal external ear and post auricular area, no visible lesions, external auditory canal patent, tympanic membrane intact, no retraction, no signs of mass, effusion, or infection within the middle ear LEFT EAR: Normal external ear and post auricular area, no visible lesions, external auditory canal patent, tympanic membrane intact, no retraction, no signs of mass, effusion, or infection within the middle ear NOSE: External nose midline, ORAL CAVITY/OROPHARYNX/LIPS : Normal mucous membranes, normal floor of mouth/tongue/OP, no masses or lesions PHARYNGEAL LEAHY: No masses or lesions NECK/LYMPH: No LAD, no thyroid masses, trachea midline SKIN: Neck and facial skin is without scar or injury PSYCH: Alert and oriented with appropriate mood and affect Diagnostic testing: I reviewed the patient's prior VNG, which demonstrates a right-sided peripheral weakness. VNG: Right warm: 18 degrees/second Right cool: 10 degrees/second Left warm: 27 degrees/second Left cool: 23 degrees/second Unilateral weakness: 28% in the right ear Directional preponderance: 5% to the right Fixation suppression: 0.17 Impression: Chronic disequilibrium --I suspect that she may have a component of vestibular migraine given his marked improvement with nortriptyline. I therefore do not recommend any weaning of the nortriptyline. He has some right sided weakness. It is also possible that he may have a component of PPPD. Recommendation: I recommend that he continue his nortriptyline. I do not recommend any MRI imaging given the reports of normal MRIs in the past as well as the fact that he has bilateral cochlear implants. Given his right sided weakness and possible PPPD, I recommend vestibular rehab. He will follow-up in 3 months to see if he has any improvement. This note was created using speech charles (more content not included)... Normal [employer] Tobacco Screening.on 023 Adult depression screening assessment No [facility] [address] [place] Work Phone: Tobacco use status [facility] b) No [facility] [address] [place] Work Phone: Tobacco Screening. 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 Bithermal caloric testing yielded a significant (28%) weakness on the right side. Ocular motility testing to visually guided signals was normal. Positional and positioning testing (Broad Top-Hallpike and roll test) were determined to be normal. VHIT results show normal lateral gain with overt saccades recorded to lateral left, posterior canal left, and lateral right canal planes. Overall results suggest the presence of a peripheral (superior portion of the vestibular nerve or lateral semicircular canal) vestibular system disorder affecting the right side. Treatment plan: 1) Continue medical follow-up with Devon Dias MD. 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 CC: Devon Dias MD Chief Complaint Dysequilibrium VIDEONYSTAGMOGRAPHY (VNG) AND VIDEO HEAD IMPULSE TEST (VHIT) EXAMINATION Adult Risk ScreeningThere are no spiritual/cultural practices/values/needs that are important to know Initial Fall Risk Screening: BHAVNA has not fallen in the last 6 months. BHAVNA does not have a fear of falling. He does not need assistance with sitting, standing or walking. Does not need assistance walking in his home. He does not need assistance in an unfamiliar setting. The patient is not using an assistive device. Domestic Violence Screen: Does not feel threatened or abused physically, emotionally or sexually. Do you feel UNSAFE? The patient feels safe in the home. Depression/Suicide Screening: During the past 2 weeks, the patient has not felt down, depressed or hopeless. During the past 2 weeks, the patient has not felt little interest or pleasure in doing things. Reference Documentation See scanned note : VNG/VHIT results. History of Present Illness History was obtained from patient: Mr. Roca was seen on order from Devon Dias MD for reported concerns for dysequilibrium and possible left vestibulopathy. -Patient is status post bilateral cochlear implantation -Patient has history of imbalance and unsteadiness which resolved for a period of time but has returned over the last several months. -Several past VNGs showed right unilateral vestibular weakness with good lateral canal function on the left -Denied otalgia, otorrhea, aural fullness, migraine headaches, history of falls, diagnosis of multiple sclerosis, and peripheral neuropathy in the feet. Patient's preferred language: Ukrainian Preferred language of the parent, legal guardian or surrogate decision-maker of this minor or incapacitated patient: Not Applicable No overt signs of domestic violence/neglect/abuse . No referral made to [facility]. Pain not interfering with optimal level of function or ability to assess and/or treat. Pain Scale rank: 0/10 Pain Scale used: Numeric No referral made to primary care provider (PCP). Factors/Barriers influencing patient's ability to complete assessment or learn: none. Person taught: patient. Readiness to learn: no barriers. Results of Teaching/Counseling: verbalize recall / understanding and teaching complete. Results/Data Otoscopy showed clear ear canals bilaterally. Ocular motility testing to visually guided targets was conducted using a dual channel video-recording technique for the recording of eye movement in the horizontal and vertical planes. Bithermal air caloric testing was performed at 48 degrees C and 24 degrees C. denotes abnormal subtest results Spontaneous nystagmus: Normal; no spontaneous nystagmus recorded. Gaze testing: Normal; normal gaze to left, right, up, and down targets. Saccade testing: Normal; peak velocities, accuracy, and latency were within normal limits. Optokinetic (OKN) testing: Normal; peak slow-phase velocity (SPV) within normal limits. Pursuit testing: Normal; gain within normal limits. Positioning testing: Normal; the Nino-Hallpike maneuver was performed with head hanging right and head hanging left. No clinically significant nystagmus was recorded. Positional testing: Normal; no clinically significant nystagmus was recorded in seated, supine, head left, or head right positions. In head left, right beating nystagmus reaching 5 degrees/second was recorded. Caloric testing: Well-formed nystagmus was recorded with each irrigation. Right warm: 18 degrees/second Right cool: 10 degrees/second Left warm: 27 degrees/second Left cool: 23 degrees/second Unilateral weakness: 28% in the right ear Directional preponderance: 5% to the right Fixation suppression: 0.17 VIDEO HEAD IMPULSE TEST Rapid, random horizontal and vertical thrusts were applied to the patient's head to provoke the vestibulo-ocular reflex (VOR). 60 ms gain values for lateral thrusts were appropriate with overt saccades recorded to left and right lateral thrusts as well (more content not included)... Normal [facility] [employer] Blood Pressure Cuff Sizeon 0 03-17-2023 Adult depression screening assessment No [facility] [address] [place] Work Phone: Tobacco use status [facility] b) No [facility] [address] [place] Work Phone: Blood Pressure Cuff Size Adult [facility] [address] [place] Work Phone: Initial Visit (Otolaryngolog y)on 03-17-2023 Initial Visit (Otolaryngology) Diagnoses/Problems Dizziness (780.4) (R42) Orders Audiology Referral Evaluation and Treatment Evaluate AND Treat-- vng Status: Hold For - Scheduling,Retrospecti ve By Protocol Authorization Requested for: [id number] Chief Complaint New patient visit vestibular migraines from Adult Risk ScreeningAdult Risk Screening_: There are no spiritual/cultural practices/values/needs that are important to know Initial Fall Risk Screening: BHAVNA has not fallen in the last 6 months. BHAVNA does not have a fear of falling. He does not need assistance with sitting, standing or walking. Does not need assistance walking in his home. He does not need assistance in an unfamiliar setting. The patient is not using an assistive device. Pain Scale: On a scale of 0 to 10, the patient rates the pain at 0. Living Will. Living Will: Living will on file. Healthcare POA: Health care proxy on file. Declaration of Mental Health Treatment: No mental health treatment on file. Tobacco Screening: BHAVNA does not use tobacco. Has not used tobacco in the past 6 months. Domestic Violence Screen: Does not feel threatened or abused physically, emotionally or sexually. Do you feel UNSAFE? The patient feels safe in the home. Depression/Suicide Screening: During the past 2 weeks, the patient has not felt down, depressed or hopeless. During the past 2 weeks, the patient has not felt little interest or pleasure in doing things. He does not have a risk of suicide. He has not had thoughts of harming others. [place]-SUICIDE SEVERITY RATING SCALE 1. Have you wished you were or wished you could go to sleep and not wake up? -NO 2. Have you actually had any thoughts of killing yourself? - NO 6. Have you done anything, started to do anything, or prepared to do anything to end your life? - NO. Single alcohol screening question: In the past year the patient has had 5 or more drinks (men) or 4 or more drinks (women)? 0 time(s). Single substance abuse screening question: In the past year the patient has used a recreational drug or used a prescription drug for non-medical reasons? 0 time(s). Nutrition Screening: In the past month, there was not a day when I or anyone in my family went hungry because there was not enough food. Patient Education: The patient denies that they or the person with them has problems with hearing, speaking, seeing, moving around or learning The patient is comfortable filling out medical forms. Food Insecurity: 1. Within the past 12 months, you worried that your food would run out before you got money to buy more: No 2. Within the past 12 months, the food you bought just didn't last and you didn't have money to get more: No History of Present Illness History of present illness: Bhavna Roca is a 77-year-old man who presents today with significant disequilibrium. He has a history of bilateral cochlear implantation, most recently in 2009. 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 He has been previously seen and evaluated by Dr. Riley. He has had a VNG from the [facility], which suggests significant right-sided vestibulopathy. A subsequent VNG here shows a significant right-sided weakness, but functional left-sided vestibular system. While MRI and CT are unavailable, reportedly the CT demonstrated right canal plugging. The MRI in the past was reportedly negative for any evidence of retrocochlear pathology. More recently, he was started on migraine therapy with nortriptyline approximately 1 year ago. He reports that he had significant improvement in his disequilibrium and balance with the nortriptyline. However, he reports that in the past several months he feels that his equilibrium is worse again. He reports that he has daily disequilibrium, which is worse with sudden movements and with bumps in the car. He denies difficulty with visual symptoms or complex patterns. He denies any significant headache component. He does have significant difficulty walking in the dark. However, he does not report any oscillopsia. He also has peripheral neuropathy and has a history of retinal issues. The patient?s current medications, active allergies and list of medical problems were reviewed in the EHR and confirmed electronically. Physical Examination: CONSTITUTIONAL: No acute distress VOICE: No hoarseness or other abnormality RESPIRATION: Breathing comfortably, no stridor CV: No clubbing/cyanosis/moo a in hands EYES: EOM intact, sclera clear NEURO: Alert and oriented times 3, Cranial nerves II-XII grossly intact and symmetric bilaterally HEAD AND FACE: Symmetric facial features, no masses or lesions SALIVARY GLANDS: Parotid and submandibular glands normal bilaterally RIGHT EAR: Normal external ear and post auricular area, no visible lesions, external auditory canal patent, tympanic membrane intact, no retraction, no signs of mass, effusion, or infection within the middle ear (more content not included)... Normal [employer] Absolute lymphocyte counton 08-31-2022 Lymphocytes Auto (Unsp spec) [#/Vol] 0.96 10*3/uL 0.83-4.51 [facility] Work Phone: Basophil percentageon 2021 Basophil percentage 0 SEEN /hpf 0-5 [facility] Work Phone: Basophils/100 WBC (Bld) 0.9 % 0-1 [facility] Work Phone: Bilirubin [Mass/Vol] 0.60 mg/dL 0.20-1.00 [facility] Work Phone: Comment on above: For patients on eltr ombopag therapy, use of Dimension [place] TBIL is not recommended. Chloride [Moles/Vol] 106 mmol/L 98-107 [facility] Work Phone: Cholesterol [Mass/Vol] 147 mg/dL <200 [facility] Work Phone: Comment on above: <200 mg/dL Desirable 200-240 mg/dL Borderline >240 mg/dL High Risk Eosinophils/100 WBC (Bld) 4.3 % 0-5 [facility] Work Phone: Glucose [Mass/Vol] 98 mg/dL 74-106 [facility] Work Phone: Neutrophils (Bld) [#/Vol] 3.5 10*3/uL 2.0-7.7 [facility] Work Phone: Neutrophils/100 WBC (Bld) 65.3 % 47-70 [facility] Work Phone: Potassium [Moles/Vol] 4.2 mmol/L 3.5-5.1 [facility] Work Phone: Protein [Mass/Vol] 7.0 g/dL 6.4-8.2 [facility] Work Phone: Sodium [Moles/Vol] 139 mmol/L 136-145 [facility] Work Phone: Triglyceride [Mass/Vol] 151 mg/dL <199 [facility] Work Phone: Comment on above: The drugs N-Acetylcy steine and Metamizole may falsely depress this assay.Serum Triglycerides Reference Interval Normal <150 mg/dL Borderline high 150 - 199 mg/dL High 200 - 499 mg/dL Very High > or = 500 mg/dL WBC (Bld) [#/Vol] 5.4 10*3/uL 4.4-11.0 [facility] Work Phone: Bilirubin Test strip Ql (U)o n 08-31-2022 Bilirubin Ql (U) Negative Negative [facility] Work Phone: Blood erythrocytes count (nu mber/volume)on 08-31-2022 RBC (Bld) [#/Vol] 5.07 10*6/uL 4.6-6.2 [facility] Work Phone: Blood hemoglobin measurement (mass/volume)on 08-31-2022 Hemoglobin (Bld) [Mass/Vol] 16.2 g/dL 13.0-16.5 [facility] Work Phone: Blood lymphocytes/100 leukoc yteson 08-31-2022 Lymphocytes/100 WBC (Bld) 17.9 % 19-41 [facility] Work Phone: Blood monocytes/100 leukocyt eson 08-31-2022 Monocytes/100 WBC (Bld) 11.2 % 0-10 [facility] Work Phone: Blood platelet mean volumeon 08-31-2022 Platelet mean volume (Bld) [Entitic vol] 10.3 fL 6.2-12.0 [facility] Work Phone: Determination of erythrocyte mean corpuscular volume (MCV)on 08-31-2022 MCV (RBC) [Entitic vol] 94.9 fL 80-94 [facility] Work Phone: Hematocrit Auto (Bld) [Volum e fraction]on 08-31-2022 Hematocrit (Bld) [Volume fraction] 48.1 % 40-54 [facility] Work Phone: Ketones Test strip Ql (U)on 08-31-2022 Ketones Ql (U) Negative Negative [facility] Work Phone: [phone] Laboratory - Chemistry and C hemistry - challengeon 08-31-2022 ALP [Catalytic activity/Vol] 94 U/L 45-117 [facility] Work Phone: [phone] ALT [Catalytic activity/Vol] 32 U/L 16-61 [facility] Work Phone: [phone] CO2 [Moles/Vol] 28.0 mmol/L 21.0-32.0 [facility] Work Phone: [phone] Globulin (S) [Mass/Vol] 3.5 g/dL 2.2-4.2 [facility] Work Phone: [phone] Urea nitrogen/Creatinine [Mass ratio] 18.3 mg/mg 10-20 [facility] Work Phone: [phone] Laboratory - Hematology and Cell countson 08-31-2022 Erythrocyte distribution width (RBC) [Entitic vol] 42.3 fL 35.1-43.9 [facility] Work Phone: [phone] Erythrocyte distribution width (RBC) [Ratio] 12.2 % 11.6-14.6 [facility] Work Phone: [phone] Immature granulocytes/100 WBC (Bld) 0.400 % 0.0-0.9 [facility] Work Phone: [phone] Comment on above: IG% - Immature Granu locytes (promyelocytes, myelocytes and metamyelocytes) > 1% indicates that a LEFT SHIFT is Present. MCH (RBC) [Entitic mass] 32.0 pg 27.0-32.0 [facility] Work Phone: [phone] Nucleated RBC/100 WBC (Bld) [Ratio] 0 % 0-5 [facility] Work Phone: [phone] MCHC Auto (RBC) [Mass/Vol]on 08-31-2022 MCHC (RBC) [Mass/Vol] 33.7 g/dL 32-36 [facility] Work Phone: Mucus LM Ql (Urine sed)on Mucus Ql (Urine sed) 0 SEEN /hpf [facility] Work [facility]: [phone] Nitrite Test strip Ql (U)on 08-31-2022 Nitrite Ql (U) Negative Negative [facility] Work Phone: No Panel Informationon 08-31 Estimated GFR (MDRD) Amer 80 mL/min >60 [facility] Work Phone: Comment on above: GFR Calc Estimated GFR (MDRD) Non-Af Amer 66 mL/min >60 [facility] Work Phone: Comment on above: Non- GFR Calc Platelets bldon 08-31-2022 Platelets (Bld) [#/Vol] 222 10*3/uL 150-450 [facility] Work Phone: [phone] Protein Test strip Ql (U)on 08-31-2022 Protein Ql (U) 15 mg/dl Negative [facility] Work Phone: [phone] Serum or plasma albumin dex urement (mass/volume)on 08-31-2022 Albumin [Mass/Vol] 3.5 g/dL 3.2-5.0 [facility] Work Phone: [phone] Serum or plasma albumin/glob ulin mass ratioon 08-31-2022 Albumin/Globulin [Mass ratio] 1.0 {ratio} 0.9-2.4 [facility] Work Phone: [phone] Serum or plasma calcium dex urement (mass/volume)on 08-31-2022 Calcium [Mass/Vol] 9.4 mg/dL 8.5-10.1 [facility] Work Phone: [phone] Serum or plasma cholesterol in HDL measurement (mass/volume)on 08-31-2022 Cholesterol in HDL [Mass/Vol] 44 mg/dL >40 [facility] Work Phone: Comment on above: The drugs N-Acetylcy steine and Metamizole may falsely depress this assay. Reference Range HDL <40 mg/dL Low HDL Cholesterol HDL >or= 60 mg/dL High HDL Cholesterol Serum or plasma cholesterol in VLDL measurement (mass/volume)on 08-31-2022 Cholesterol in VLDL [Mass/Vol] 30 mg/dL 5-40 [facility] Work Phone: Serum or plasma creatinine m easurement (mass/volume)on 08-31-2022 Creatinine [Mass/Vol] 1.15 mg/dL 0.70-1.30 [facility] Work Phone: Comment on above: The validity of the calculated GFR & GFRAA in patients over 70 years has not been determined. Clinical correlation is essential. Serum or plasma low density lipoprotein (LDL) cholesterol measurement (mass/volume)on 08-31-2022 Cholesterol in LDL [Mass/Vol] 73 mg/dL 0-130 [facility] Work Phone: Serum or plasma urea nitroge n measurement (mass/volume)on 08-31-2022 Urea nitrogen [Mass/Vol] 21 mg/dL 7-18 [facility] Work Phone: Squamous epithelial cells de tection in urine sediment by light microscopyon 08-31-2022 Epithelial cells.squamous LM Ql (Urine sed) 0 SEEN /hpf 0-5 [facility] Work Phone: Thin prep Papanicolaou smear with manual screeningon 08-31-2022 Thin prep Papanicolaou smear with manual screening 23 U/L 15-37 [facility] Work Phone: Thin prep Papanicolaou smear with manual screening 5 5-15 [facility] Work Phone: Urine blood detectionon 08-20 RBC Ql (U) Negative Negative [facility] Work Phone: RBC Ql (U) 0 SEEN /hpf 0-5 [facility] Work Phone: [phone] Urine clarityon 08-31-2022 Clarity (U) Clear Clear [facility] Work Phone: Urine color determinationon 08-31-2022 Color (U) Yellow Yellow [facility] Work Phone: [phone] Urine glucose detectionon Glucose Ql (U) Normal mg/dl Normal [facility] Work Phone: Urine leukocyte esterase det ection by dipstickon 08-31-2022 Leukocyte esterase Test strip Ql (U) Negative Negative [facility] Work Phone: Urine pHon 08-31-2022 pH (U) 7.0 [pH] 5.0 - 8.0 [facility] Work Phone: Urine sediment bacteria coun t by microscopy (number/high power field)on 08-31-2022 Bacteria LM.HPF (Urine sed) [#/Area] 0 /[HPF] None Seen [facility] Work Phone: Urine specific gravity measu rementon 08-31-2022 Specific gravity (U) [Rel density] 1.015 1.002-1.030 [facility] Work Phone: Urobilinogen Auto test strip Ql (U)on 08-31-2022 Urobilinogen Ql (U) Normal mg/dl Normal [facility] Work Phone: Basophil percentageon 2021 Bilirubin [Mass/Vol] 0.60 mg/dL 0.20-1.00 [facility] Work Phone: Comment on above: For patients on eltr ombopag therapy, use of Dimension [place] TBIL is not recommended. Chloride [Moles/Vol] 110 mmol/L 98-107 [facility] Work Phone: Glucose [Mass/Vol] 88 mg/dL 74-106 [facility] Work Phone: Potassium [Moles/Vol] 4.2 mmol/L 3.5-5.1 [facility] Work Phone: Protein [Mass/Vol] 6.8 g/dL 6.4-8.2 [facility] Work Phone: [phone] Sodium [Moles/Vol] 140 mmol/L 136-145 [facility] Work Phone: Laboratory - Chemistry and C hemistry - challengeon 03-18-2022 ALP [Catalytic activity/Vol] 100 U/L 45-117 [facility] Work Phone: [phone] ALT [Catalytic activity/Vol] 31 U/L 16-61 [facility] Work Phone: [phone] CO2 [Moles/Vol] 26.0 mmol/L 21.0-32.0 [facility] Work Phone: [phone] Globulin (S) [Mass/Vol] 3.3 g/dL 2.2-4.2 [facility] Work Phone: [phone] Urea nitrogen/Creatinine [Mass ratio] 16.5 mg/mg 10-20 [facility] Work Phone: No Panel Informationon 03-18 Estimated GFR (MDRD) Amer 85 mL/min >60 [facility] Work Phone: Comment on above: GFR Calc Estimated GFR (MDRD) Non-Af Amer 70 mL/min >60 [facility] Work Phone: [phone] Comment on above: Non- GFR Calc Serum or plasma albumin dex urement (mass/volume)on 03-18-2022 Albumin [Mass/Vol] 3.5 g/dL 3.2-5.0 [facility] Work Phone: [phone] Serum or plasma albumin/glob ulin mass ratioon 03-18-2022 Albumin/Globulin [Mass ratio] 1.1 {ratio} 0.9-2.4 [facility] Work Phone: [phone] Serum or plasma calcium dex urement (mass/volume)on 03-18-2022 Calcium [Mass/Vol] 9.4 mg/dL 8.5-10.1 [facility] Work Phone: [phone] Serum or plasma creatinine m easurement (mass/volume)on 03-18-2022 Creatinine [Mass/Vol] 1.09 mg/dL 0.70-1.30 [facility] Work Phone: Comment on above: The validity of the calculated GFR & GFRAA in patients over 70 years has not been determined. Clinical correlation is essential. Serum or plasma urea nitroge n measurement (mass/volume)on 03-18-2022 Urea nitrogen [Mass/Vol] 18 mg/dL 7-18 [facility] Work Phone: Thin prep Papanicolaou smear with manual screeningon 03-18-2022 Thin prep Papanicolaou smear with manual screening 21 U/L 15-37 [facility] Work Phone: Thin prep Papanicolaou smear with manual screening 4 5-15 [facility] Work Phone: [phone] Whole blood hemoglobin A1c/t otal hemoglobin ratio (mass fraction)on 03-18-2022 HbA1c (Bld) [Mass fraction] 5.3 % 3.8-5.6 [facility] Work Phone: Comment on above: Normal < 5.7 % Predi abetic 5.7 - 6.4 % Diabetic >or= 6.5 % Please note range changes. Absolute lymphocyte counton 03-10-2022 Lymphocytes Auto (Unsp spec) [#/Vol] 0.98 10*3/uL 0.83-4.51 [facility] Work Phone: Basophil percentageon 2021 Basophils/100 WBC (Bld) 0.7 % 0-1 [facility] Work Phone: Bilirubin [Mass/Vol] 0.80 mg/dL 0.20-1.00 [facility] Work Phone: Comment on above: For patients on eltr ombopag therapy, use of Dimension [place] TBIL is not recommended. Chloride [Moles/Vol] 106 mmol/L 98-107 [facility] Work Phone: Cholesterol [Mass/Vol] 161 mg/dL <200 [facility] Work Phone: [phone] Comment on above: <200 mg/dL Desirable 200-240 mg/dL Borderline >240 mg/dL High Risk Eosinophils/100 WBC (Bld) 3.9 % 0-5 [facility] Work Phone: Glucose [Mass/Vol] 120 mg/dL 74-106 [facility] Work Phone: Comment on above: Fasting Glucose resu lt from 100 to 125 mg/dL suggests IMPAIRED HOMEOSTASIS per A.D.A. criteria. Neutrophils (Bld) [#/Vol] 3.9 10*3/uL 2.0-7.7 [facility] Work Phone: Neutrophils/100 WBC (Bld) 67.1 % 47-70 [facility] Work Phone: [phone] Potassium [Moles/Vol] 4.2 mmol/L 3.5-5.1 [facility] Work Phone: [phone] Protein [Mass/Vol] 7.3 g/dL 6.4-8.2 [facility] Work Phone: [phone] Sodium [Moles/Vol] 137 mmol/L 136-145 [facility] Work Phone: [phone] Triglyceride [Mass/Vol] 160 mg/dL [facility] Work Phone: [phone] Comment on above: The drugs N-Acetylcy steine and Metamizole may falsely depress this assay.Serum Triglycerides Reference Interval Normal <150 mg/dL Borderline high 150 - 199 mg/dL High 200 - 499 mg/dL Very High > or = 500 mg/dL WBC (Bld) [#/Vol] 5.9 10*3/uL 4.4-11.0 [facility] Work Phone: Blood erythrocytes count (nu mber/volume)on 03-10-2022 RBC (Bld) [#/Vol] 5.20 10*6/uL 4.6-6.2 [facility] Work Phone: Blood hemoglobin measurement (mass/volume)on 03-10-2022 Hemoglobin (Bld) [Mass/Vol] 16.2 g/dL 13.0-16.5 [facility] Work Phone: Blood lymphocytes/100 leukoc yteson 03-10-2022 Lymphocytes/100 WBC (Bld) 16.7 % 19-41 [facility] Work Phone: [phone] Blood monocytes/100 leukocyt eson 03-10-2022 Monocytes/100 WBC (Bld) 11.1 % 0-10 [facility] Work Phone: Blood platelet mean volumeon 03-10-2022 Platelet mean volume (Bld) [Entitic vol] 10.3 fL 6.2-12.0 [facility] Work Phone: Determination of erythrocyte mean corpuscular volume (MCV)on 03-10-2022 MCV (RBC) [Entitic vol] 93.5 fL 80-94 [facility] Work Phone: [phone] Hematocrit Auto (Bld) [Volum e fraction]on 03-10-2022 Hematocrit (Bld) [Volume fraction] 48.6 % 40-54 [facility] Work Phone: Laboratory - Chemistry and C hemistry - challengeon 03-10-2022 ALP [Catalytic activity/Vol] 97 U/L 45-117 [facility] Work Phone: [phone] ALT [Catalytic activity/Vol] 39 U/L 16-61 [facility] Work Phone: [phone] CO2 [Moles/Vol] 25.0 mmol/L 21.0-32.0 [facility] Work Phone: Globulin (S) [Mass/Vol] 3.5 g/dL 2.2-4.2 [facility] Work Phone: [phone] Urea nitrogen/Creatinine [Mass ratio] 21.4 mg/mg 10-20 [facility] Work Phone: Laboratory - Hematology and Cell countson 03-10-2022 Erythrocyte distribution width (RBC) [Entitic vol] 42.8 fL 35.1-43.9 [facility] Work Phone: [phone] Erythrocyte distribution width (RBC) [Ratio] 12.5 % 11.6-14.6 [facility] Work Phone: [phone] Immature granulocytes/100 WBC (Bld) 0.500 % 0.0-0.9 [facility] Work Phone: Comment on above: IG% - Immature Granu locytes (promyelocytes, myelocytes and metamyelocytes) > 1% indicates that a LEFT SHIFT is Present. MCH (RBC) [Entitic mass] 31.2 pg 27.0-32.0 [facility] Work Phone: [phone] Nucleated RBC/100 WBC (Bld) [Ratio] 0 % 0-5 [facility] Work Phone: [phone] MCHC Auto (RBC) [Mass/Vol]on 03-10-2022 MCHC (RBC) [Mass/Vol] 33.3 g/dL 32-36 [facility] Work Phone: [phone] Panel Informationon 03-10 Estimated GFR (MDRD) Amer 72 mL/min >60 [facility] Work Phone: [phone] Comment on above: GFR Calc Estimated GFR (MDRD) Non-Af Amer 59 mL/min >60 [facility] Work Phone: [phone] Comment on above: Non- GFR Calc Prostate Specific Antigen Screen 2.22 ng/mL 0.00-4.00 [facility] Work Phone: [phone] Comment on above: This test was perfor med using the TPSA assay method for [employer] chemistry system. Values obtained with differentassay methods cannot be used interchangably.When changing PSA assays in the course of monitoring apatient, additional sequential testing should be carriedout to confirm baseline values. Thyroid Stimulating Hormone (TSH) 2.75 uIU/mL 0.358-3.74 [facility] Work Phone: [phone] Platelets bldon 03-10-2022 Platelets (Bld) [#/Vol] 238 10*3/uL 150-450 [facility] Work Phone: [phone] Serum or plasma albumin dex urement (mass/volume)on 03-10-2022 Albumin [Mass/Vol] 3.8 g/dL 3.2-5.0 [facility] Work Phone: [phone] Serum or plasma albumin/glob ulin mass ratioon 03-10-2022 Albumin/Globulin [Mass ratio] 1.1 {ratio} 0.9-2.4 [facility] Work Phone: Serum or plasma calcium dex urement (mass/volume)on 03-10-2022 Calcium [Mass/Vol] 8.8 mg/dL 8.5-10.1 [facility] Work Phone: Serum or plasma cholesterol in HDL measurement (mass/volume)on 03-10-2022 Cholesterol in HDL [Mass/Vol] 42 mg/dL [facility] Work Phone: Comment on above: The drugs N-Acetylcy steine and Metamizole may falsely depress this assay. Reference Range HDL <40 mg/dL Low HDL Cholesterol HDL >or= 60 mg/dL High HDL Cholesterol Serum or plasma cholesterol in VLDL measurement (mass/volume)on 03-10-2022 Cholesterol in VLDL [Mass/Vol] 32 mg/dL 5-40 [facility] Work Phone: Serum or plasma creatinine m easurement (mass/volume)on 03-10-2022 Creatinine [Mass/Vol] 1.26 mg/dL 0.70-1.30 [facility] Work Phone: Comment on above: The validity of the calculated GFR & GFRAA in patients over 70 years has not been determined. Clinical correlation is essential. Serum or plasma low density lipoprotein (LDL) cholesterol measurement (mass/volume)on 03-10-2022 Cholesterol in LDL [Mass/Vol] 87 mg/dL 0-130 [facility] Work Phone: Serum or plasma urea nitroge n measurement (mass/volume)on 03-10-2022 Urea nitrogen [Mass/Vol] 27 mg/dL 7-18 [facility] Work Phone: Thin prep Papanicolaou smear with manual screeningon 03-10-2022 Thin prep Papanicolaou smear with manual screening 27 U/L 15-37 [facility] Work Phone: Thin prep Papanicolaou smear with manual screening 6 5-15 [facility] Work Phone: Gabe 06-11-2020 [facility] Telephone (HNQ) BHAVNA ROCA ([id number]) 1945 M Date Time Provider Department 06/11/20 ANDRIA GUEVARA (LANCE) MOLLY During your visit today, we recorded the following information about you: Shahana Poole Adm Asst 06/11/2020 11:35 AM Signed Pt Maya calling. She states the medication previously prescribed is not working and would like to speak with Andria to discuss. [phone] Shahana Gimm Adm Asst Aylin Rodriguez [facility] Asst 2020 2:37 PM Signed Patient's is calling back again. She would really like a phone call back prior to the weekend. Prior Message: Shahana Zulema [facility] Asst Telephone Encounter Signed Creation Time: 06/11/2020 11:34 AM Pt Maya calling. She states the medication previously prescribed is not working and would like to speak with Andria to discuss. [phone] ? Shahana Poole Adm Asst Thanks Aylin Jennifer [facility] Asst Simi Negro, RN, RN 2020 3:41 PM Signed Spoke to pt. Pt was seen on 05/29, a prednisone regimen was given and finished. Pt is calling to let Andria know this did not help, he is still having dizziness and volume/pitch changes at night when he is horizontal. Pt wants to know what the next step would be. Denies pain, distress, drainage, nausea/vomiting. Will route to team for further advisement, pt verbalized understanding and has no further questions or concerns at this time. Simi Negro, RN, RN 2020 3:45 PM Signed Paged Andria to make aware of pt calling a couple of times and wanting a call before the weekend. 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, felt a pop- dizziness since, dysequilibrium S/p neck surgery 07/2020 No relief from steroid burst, was hoping to mitigate symptoms until he had appointment with orthopedic surgeon next week Vestibular therapy for neck if cleared by aracely Stephenson Provider Specialties: Physical Therapist Clinic Locations: [facility] [address], [place] [address] [phone] Andria Guevara CNP Allergies As of Date: 06/11/2020 (Not on File) Date Reviewed: 05/29/2020 Reviewed by: Andria Park) Jacob - Fully Assessed Reason for Visit: Medication [Other] Primary Visit Diagnosis:Dizziness [R42] Other Visit Diagnosis:Cervicalgia [M54.2] Order(s):CONSULT TO VESTIBULAR REHAB PT [[id number]] Order #: [id number]: 1 Prescriptions as of 06/11/2020 Sig: LISINOPRIL 20 MG TABLET Take 20 mg by mouth once gualberto* PREDNISONE 10 MG TABLET Take by mouth four (4) tabs x* VENLAFAXINE ER 37.5 MG CAPSUL* Take 1 capsule by mouth once * SIMVASTATIN 40 MG TABLET Take 40 mg by mouth daily at * MULTIVITAMIN TABLET Take 1 tablet by mouth once d* HYDROCHLOROTHIAZIDE 25 MG TAB* Take one(1) tablet daily. ALTACE 10 MG CAPSULE Take one(1) tablet daily. * ASPIRIN 81 MG TABLET Take one(1) tablet daily. 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 No emigdio spinning Tinnitus bilateral until implants then resolved 1.5 years ago left tinnitus began, injection series. Changes roar to a ringing No new ear symptoms ALLERGIES Not on File Current Outpatient Medications on File Prior to Visit: simvastatin (ZOCOR) 40 mg tablet Take 40 mg by mouth daily at bedtime. multivitamin tablet Take 1 tablet by mouth once daily. HYDROCHLOROTHIAZIDE 25 MG TAB Take one(1) tablet daily. ALTACE 10 MG CAP Take one(1) tablet daily. ASPIRIN 81 MG TAB Take one(1) tablet daily. No current facility-administered medications on file prior to visit. Objective: There were no vitals taken for this visit. Appearance: normal Communication: normal Head/Face: no lesions Facial nerve 1/6 bilateral Ears: AD: EAC dry and healthy. Middle ear without effusion. Drum intact and mobile. .Integument over the internal processor without erythema or tenderness, skin intact. : EAC dry and healthy. Middle ear without effusion. Drum intact and mobile. Integument over the internal processor without erythema or tenderness, skin intact. Lymphatic: normal Neuro/Psych.: Alert and Oriented x 3; no nystagmus Cranial nerves intact Data Review: Assessment: (R42) Dizziness (primary encounter diagnosis) (R26.89) Balance problem (Z96.21) Cochlear implant in place Plan: Cervicogenic (neck/cerival spine) dizziness vs Hydrops 1. Trial steroid burst and taper -Take in the morning with food 2. Continue vestibular and physical therapy at home 3. He has follow up with orthopedic surgeon at the end of the month Andria Guevara, LANCE Guevara APRN.LANCE 05/29/2020 10:18 AM Addendum Cervicogenic (neck/cerival spine) dizziness vs Hydrops 1. Trial steroid burst and taper -Take in the morning with food 2. Continue vestibular therapy at home Meniere's Disease - [email or web address] Referring Provider: SELF [[id number]] Allergies As of Date: 05/29/2020 (Not on File) Date Reviewed: 05/29/2020 Reviewed by: Andria (Meteorological Observer) Jacob - Fully Assessed Reason for Visit: Dizziness [36] Primary Visit Diagnosis:Dizziness [R42] Other Visit Diagnoses:Balance problem [R26.89] Cochlear implant in place [Z96.21] Order(s):predniSONE (DELTASONE) 10 mg tabletTake by mouth four (4) tabs x3 days; then three (3) tabs x3days; then two (2) tabs x3 days; then one (1) tab a day x3 daysDisp: 30 tabletRfl: 0 Prescriptions as of 05/29/2020 Sig: LISINOPRIL 20 MG TABLET Take 20 mg by mouth once gualberto* SIMVASTATIN 40 MG TABLET Take 40 mg by mouth daily at * MULTIVITAMIN TABLET Take 1 tablet by mouth once d* HYDROCHLOROTHIAZIDE 25 MG TAB* Take one(1) tablet daily. * ASPIRIN 81 MG TABLET Take one(1) tablet daily. PREDNISONE 10 MG TABLET Take by mouth four (4) tabs x* VENLAFAXINE ER 37.5 MG CAPSUL* Take 1 capsule by mouth once * ALTACE 10 MG CAPSULE Take one(1) tablet daily. 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 Trial steroid burst and taper -Take in the morning with food 2. Continue vestibular therapy at home Meniere's Disease - [email or web address] Prescriptions ordered this encounter Disp Refills Start End PREDNISONE 10 MG TABLET 30 t* 0 05/29/2020 Sig: Take by mouth four (4) tabs x3 days; then three (3) tabs x3days; then two (2) tabs x3 days; then one (1) tab a day x3 days Encounter Status:Closed by ANDRIA GUEVARA CNP on 05/29/20 [facility] PROGRESSon 05-29-2020 PROGRESS HNO ID: [id number] Author: Andria Guevara Service: ? Author Type: Nurse Practitioner Type: Progress Notes Filed: 05/29/2020 10:47 AM Note Text: History of Present Illness Mr. 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 No emigdio spinning Tinnitus bilateral until implants then resolved 1.5 years ago left tinnitus began, injection series. Changes roar to a ringing No new ear symptoms ALLERGIES Not on File Current Outpatient Medications on File Prior to Visit: simvastatin (ZOCOR) 40 mg tablet Take 40 mg by mouth daily at bedtime. multivitamin tablet Take 1 tablet by mouth once daily. HYDROCHLOROTHIAZIDE 25 MG TAB Take one(1) tablet daily. ALTACE 10 MG CAP Take one(1) tablet daily. ASPIRIN 81 MG TAB Take one(1) tablet daily. No current facility-administered medications on file prior to visit. Objective: There were no vitals taken for this visit. Appearance: normal Communication: normal Head/Face: no lesions Facial nerve 1/6 bilateral Ears: AD: EAC dry and healthy. Middle ear without effusion. Drum intact and mobile. .Integument over the internal processor without erythema or tenderness, skin intact. : EAC dry and healthy. Middle ear without effusion. Drum intact and mobile. Integument over the internal processor without erythema or tenderness, skin intact. Lymphatic: normal Neuro/Psych.: Alert and Oriented x 3; no nystagmus Cranial nerves intact Data Review: Assessment: (R42) Dizziness (primary encounter diagnosis) (R26.89) Balance problem (Z96.21) Cochlear implant in place Plan: Cervicogenic (neck/cerival spine) dizziness vs Hydrops 1. Trial steroid burst and taper -Take in the morning with food 2. Continue vestibular and physical therapy at home 3. He has follow up with orthopedic surgeon at the end of the month LANCE Bennett [facility] 11-26-2019 [facility] Telephone (OTOLBD) BHAVNA ROCA ([id number]) 1945 M Date Time Provider Department 11/26/19 LILLIE SINHA During your visit today, we recorded the following information about you: Desiree Cortes 11/26/2019 1:40 PM Signed of Bhavna Roca is calling Lillie Sinha MD today with concern regarding Therapy, patient states he has been dizzy since arriving in [place] they drove motor home down there the drive was 2 1/2 days Patient was not dizzy during his drive. They have found a therapy company there [facility] FAX [phone] they would like a referral faxed to them so they can start therapy. Please call the back at [phone] Duration of symptoms: 10 days Person calling: spouse: Maya Call patient at: on cell [phone] (cell) Was an appointment scheduled: No Closing statement: Symptom Call: Thank you for calling [facility], your call is very important. A nurse will call in approximately 2-4 hours during business hours. If this is an emergency, please contact 911. Desiree Negro 11/26/2019 2:30 PM Signed Spoke to pt and his , Team - pt last seen 06/14/19 for vestibular symptoms is calling complaining of an overall yuck feeling when he turns and moves his head, some dizziness but not crystal involvement kind , describes symptoms as vestibular in nature , denies nausea, severe pressure or eye issues. Pt requesting any medication that would help to be sent to the pharmacy on file in [place]. Pt also requesting referral for vestibular testing to be sent to a place called [facility] in [place] for vestibular therapy. Will route to MD team for advisement. Let the pt and know when we hear back from MD team we will fax order and call them. Pt verbalized understanding and have no further questions or concerns at this time. Andria Guevara APRN.ADVANCED PRACTICE PROVIDER 11/26/2019 3:25 PM Signed Patient with a history of bilateral cochlear implantation ([employer]) History of bppv and intermittent dizziness Spinal surgery 07/2019 overall dizziness had improved since surgery Notes that since he is now becoming more active after surgery dizziness has returned Movement of his head in any direction causes dizziness woozy nausea No emigdio vertigo. 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, [place], [phone] LANCE Bennett APRN.ADVANCED PRACTICE PROVIDER 11/26/2019 3:25 PM Signed Spoke to pt and his , Team - pt last seen 06/14/19 for vestibular symptoms is calling complaining of an overall yuck feeling when he turns and moves his head, some dizziness but not crystal involvement kind , describes symptoms as vestibular in nature , denies nausea, severe pressure or eye issues. Pt requesting any medication that would help to be sent to the pharmacy on file in [place]. Pt also requesting referral for vestibular testing to be sent to a place called [facility] in [place] for vestibular therapy. Will route to MD team for advisement. Let the pt and know when we hear back from MD team we will fax order and call them. Pt verbalized understanding and have no further questions or concerns at this time. Dayanara Antonino 11/27/2019 1:29 PM Signed Pt's calling back with correct fax #[phone] Allergies As of Date: 11/26/2019 (No Known Allergies) Date Reviewed: 06/17/2019 Reviewed by: Andria Guevara - Fully Assessed Reason for Visit: Patient Question [6187] Primary Visit Diagnosis:Dizziness [R42] Order(s):CONSULT TO VESTIBULAR REHAB PT [[id number]] Order #: [id number]: 1 Prescriptions as of 11/26/2019 Sig: VENLAFAXINE ER 37.5 MG CAPSUL* Take 1 capsule by mouth once * SIMVASTATIN 40 MG TABLET Take 40 mg by mouth daily at * MULTIVITAMIN TABLET Take 1 tablet by mouth once d* HYDROCHLOROTHIAZIDE 25 MG TAB* Take one(1) tablet daily. ALTACE 10 MG CAPSULE Take one(1) tablet daily. * ASPIRIN 81 MG TABLET Take one(1) tablet daily. 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 COMPARISON: September 16 ACCESSION NUMBER(S): [id number] ORDERING CLINICIAN: RUBI LEGER FINDINGS: Multilevel anterior cervical fusion unchanged. C4-5 anterior fusion in low C5 through 7 anterior plate with graft again noted unchanged. No new findings. IMPRESSION: C4 through C7 anterior cervical fusion with a satisfactory and unchanged appearance. Electronically signed by: VERENA SEARS MD Normal [facility] [place] CERVICAL 2V AP/LATon 017 CERVICAL 2V AP/LAT Performed at [facility] APPROVED BY: TRACY CHAVEZ MD EXAMINATION: CERVICAL 2V AP/LAT HISTORY: Postoperative examination. . TECHNIQUE: CERVICAL 2V AP/LAT COMPARISON: 06/06/2017 RESULT: Please note that evaluation of the C6 and C7 vertebral bodies is somewhat limited secondary to overlapping soft tissues. The patient is status post anterior fusion and discectomy involving C5 through C7. The surgical hardware appears intact, without evidence for hardware failure or loosening. There is multilevel facet hypertrophic degenerative change. Stable mild to moderate disc space narrowing is seen involving C4-C5. There is no vertebral body compression fracture or prevertebral soft tissue swelling. IMPRESSION: Stable postoperative change. No acute findings. Normal [facility] DX LUMBOSACRAL SPINE MIN 4 V IEWSon 09-05-2017 DX LUMBOSACRAL SPINE MIN 4 VIEWS Performed at [facility] APPROVED BY: Roman Acuña MD EXAM TITLE: DX LUMBOSACRAL SPINE MIN 4 VIEWS DATE: 09/05/2017 15:00 COMPARISON: June 06, 2017 CLINICAL INDICATION/HISTORY: The patient is a 72-year-old male with low back pain and numbness and burning the legs exacerbated by standing. TECHNIQUE: AP and lateral neutral, flexion, and extension views of the lumbar spine are presented. FINDINGS: There are five sht-fda-ckzlnor lumbar vertebra.The motion of the lumbar vertebral bodies between flexion and extension is normal.No fracture or subluxations are noted.There is disc space narrowing at L3-4.Endplate hypertrophic spurs affecting most of the lumbar endplates. IMPRESSION: There is lumbar spondylosis with disc space narrowing at L3-4 and multilevel endplate hypertrophic spur formation. There is no evidence of fracture, malalignment, bony destruction, or instability. Normal [facility] DX CERVICAL SPINE 2 OR 3 VIE WSon 06-06-2017 DX CERVICAL SPINE 2 OR 3 VIEWS Performed at [facility] APPROVED BY: Taryn Spence MD EXAM TITLE: DX CERVICAL SPINE 2 OR 3 VIEWS DATE: 06/06/2017 13:07 INDICATION: Follow-up for cervical spinal surgery COMPARISON: 04/25/2017 FINDINGS: There is anterior cervical fusion and discectomy extending from C5 to C7. This appears stable. No fractures or dislocations are noted otherwise. There is diffuse osteopenia. Incidentally, there appears to be a left cochlear implant. IMPRESSION: Stable postoperative changes without apparent complications. Normal [facility] DX LUMBOSACRAL SPINE 2 OR 3 VIEWSon 06-06-2017 DX LUMBOSACRAL SPINE 2 OR 3 VIEWS Performed at [facility] APPROVED BY: Taryn Spence MD EXAM TITLE: DX LUMBOSACRAL SPINE 2 OR 3 VIEWS DATE: 06/06/2017 13:07 INDICATION: Low back pain COMPARISON: None. FINDINGS: At the lower thoracic spine and at the L1-2 level, there are anterior osteophytes suggesting diffuse idiopathic skeletal hyperostosis. There are 5 nonrib-bearing lumbar vertebrae. No fractures or dislocations are noted. Sacroiliac joints are symmetric. IMPRESSION: Lower thoracic and upper lumbar changes of diffuse idiopathic skeletal hyperostosis. There is no acute process. Normal [facility] Vital Signs Date Time Vital Sign Value Performing Clinician Facility 05-06-2025 08:30-0400 Diastolic blood pressure 71 mm[Hg] Sergio Pino MD Work Phone: [facility] 05-06-2025 08:30-0400 Heart rate 61 /min Sergio Pino MD Work Phone: [facility] 05-06-2025 08:30-0400 Respiratory rate 22 /min Sergio Pino MD Work Phone: [facility] [employer] 05-06-2025 08:30-0400 Systolic blood pressure 136 mm[Hg] Sergio Pino MD Work Phone: [facility] [employer] 05-06-2025 07:45-0400 Body temperature 97.7 [degF] Sergio Pino MD Work Phone: [facility] [employer] 05-06-2025 07:45-0400 SaO2% (BldA) [Mass fraction] 97 % Sergio Pino MD Work Phone: [facility] [employer] 05-06-2025 06:45-0400 Body mass index (BMI) [Ratio] 30.25 kg/m2 Sergio Pino MD Work Phone: [facility] [employer] 05-06-2025 06:45-0400 Body weight 104 kg Sergio Pino MD Work Phone: [facility] [employer] 04-23-2025 14:51-0400 Body height 185.4 cm Sergio Pino MD Work Phone: [facility] [employer] 04-23-2025 14:51-0400 Body mass index (BMI) [Ratio] 30.34 kg/m2 Sergio Pino MD Work Phone: [facility] [employer] 04-23-2025 14:51-0400 Body weight 104.33 kg Sergio Pino MD Work Phone: [facility] [employer] 04-23-2025 14:51-0400 Diastolic blood pressure 64 mm[Hg] Sergio Pino MD Work Phone: [facility] [employer] 04-23-2025 14:51-0400 Heart rate 64 /min Sergio Pino MD Work Phone: [facility] [employer] 04-23-2025 14:51-0400 SaO2% (BldA) [Mass fraction] 98 % Sergio Pino MD Work Phone: [facility] [employer] 04-23-2025 14:51-0400 Systolic blood pressure 120 mm[Hg] Sergio Pino MD Work Phone: [facility] [employer] 04-09-2025 10:11-0400 Body height 185.[address] Alfredo Vasquez MD Work Phone: [facility] 04-09-2025 10:11-0400 Body mass index (BMI) [Ratio] 31.1 kg/m2 Dr. Alfredo Vasquez MD Work Phone: [facility] 04-09-2025 10:11-0400 Body weight 107.[address] Alfredo Vasquez MD Work Phone: [facility] 04-09-2025 10:11-0400 Diastolic blood pressure 66 mm[Hg] Dr. Alfredo Vasquez MD Work Phone: [facility] 04-09-2025 10:11-0400 Heart rate 67 /min Dr. Alfredo Vasquez MD Work Phone: [phone] [place] [address] 04-09-2025 10:11-0400 Respiratory rate 20 /min Dr. Alfredo Vasquez MD Work Phone: [facility] 04-09-2025 10:11-0400 SaO2% (BldA) [Mass fraction] 95 % Dr. Alfredo Vasquez MD Work Phone: [facility] 04-09-2025 10:11-0400 Systolic blood pressure 117 mm[Hg] Dr. Alfredo Vasquez MD Work Phone: [facility] 03-21-2025 08:02-0400 Body mass index (BMI) [Ratio] 30.4 kg/m2 Dr. Alfredo Vasquez MD Work Phone: [facility] 03-21-2025 08:02-0400 Body weight 104.[address] Alfredo Vasquez MD Work Phone: [facility] 03-21-2025 08:02-0400 Diastolic blood pressure 72 mm[Hg] Dr. Alfredo Vasquez MD Work Phone: [facility] 03-21-2025 08:02-0400 Heart rate 63 /min Dr. Alfredo Vasquez MD Work Phone: [facility] 03-21-2025 08:02-0400 Respiratory rate 20 /min Dr. Alfredo Vasquez MD Work Phone: [facility] 03-21-2025 08:02-0400 SaO2% (BldA) [Mass fraction] 94 % Dr. Alfredo Vasquez MD Work Phone: [facility] 03-21-2025 08:02-0400 Systolic blood pressure 123 mm[Hg] Dr. Alfredo Vasquez MD Work Phone: [facility] 03-19-2025 10:19-0400 Body mass index (BMI) [Ratio] 30.41 kg/m2 Марина Moeller MANAGER EVENT-ADVANCED PRACTICE PROVIDER Work Phone: [facility] 03-19-2025 10:19-0400 Body temperature 97.2 [degF] Марина Moeller MANAGER EVENT-ADVANCED PRACTICE PROVIDER Work Phone: [facility] 03-19-2025 10:19-0400 Body weight 104.55 kg Марина Moeller MANAGER EVENT-ADVANCED PRACTICE PROVIDER Work Phone: [facility] 03-19-2025 10:19-0400 Diastolic blood pressure 82 mm[Hg] Марина Moeller MANAGER EVENT-ADVANCED PRACTICE PROVIDER Work Phone: [facility] 03-19-2025 10:19-0400 Heart rate 68 /min Марина Moeller APRN-ADVANCED PRACTICE PROVIDER Work Phone: [facility] 03-19-2025 10:19-0400 Systolic blood pressure 150 mm[Hg] Марина Moeller MANAGER EVENT-ADVANCED PRACTICE PROVIDER Work Phone: [facility] 02-20-2025 07:04-0400 Body temperature 97.2 [degF] Elizabeth Santos MD Work Phone: [facility] 02-20-2025 07:04-0400 Diastolic blood pressure 75 mm[Hg] Elizabeth Santos MD Work Phone: [facility] 02-20-2025 07:04-0400 Heart rate 67 /min Elizabeth Santos MD Work Phone: [facility] 02-20-2025 07:04-0400 Respiratory rate 18 /min Elizabeth Santos MD Work Phone: [facility] 02-20-2025 07:04-0400 SaO2% (BldA) [Mass fraction] 97 % Elizabeth Santos MD Work Phone: [facility] 02-20-2025 07:04-0400 Systolic blood pressure 149 mm[Hg] Elizabeth Santos MD Work Phone: [facility] 02-19-2025 09:10-0400 Body height 185.4 cm Elizabeth Santos MD Work Phone: [facility] 02-19-2025 09:10-0400 Body mass index (BMI) [Ratio] 30.83 kg/m2 Elizabeth Santos MD Work Phone: [facility] 02-19-2025 09:10-0400 Body weight 106 kg Elizabeth Santos MD Work Phone: [facility] 02-06-2025 09:49-0400 Body height 185.4 cm Марина Moeller APRN-LANCE Work Phone: [facility] 02-06-2025 09:49-0400 Body mass index (BMI) [Ratio] 31.02 kg/m2 Марина Moeller APRN-ADVANCED PRACTICE PROVIDER Work Phone: [facility] 02-06-2025 09:49-0400 Body weight 106.64 kg Марина Moeller MANAGER EVENT-ADVANCED PRACTICE PROVIDER Work Phone: [facility] 02-06-2025 09:49-0400 Diastolic blood pressure 84 mm[Hg] Марина Moeller APRN-ADVANCED PRACTICE PROVIDER Work Phone: [facility] 02-06-2025 09:49-0400 Heart rate 65 /min Марина Moeller APRN-ADVANCED PRACTICE PROVIDER Work Phone: [facility] 02-06-2025 09:49-0400 Respiratory rate 16 /min Марина Moeller MANAGER EVENT-ADVANCED PRACTICE PROVIDER Work Phone: [facility] 02-06-2025 09:49-0400 Systolic blood pressure 151 mm[Hg] Марина Moeller MANAGER EVENT-ADVANCED PRACTICE PROVIDER Work Phone: [facility] 11-08-2024 08:14-0500 Body height 185.[address] Alfredo Vasquez MD Work Phone: [facility] 11-08-2024 08:14-0500 Body mass index (BMI) [Ratio] 29 kg/m2 Dr. Alfredo Vasquez MD Work Phone: [facility] 11-08-2024 08:14-0500 Body weight 99.[address] Alfredo Vasquez MD Work Phone: [facility] 11-08-2024 08:14-0500 Diastolic blood pressure 72 mm[Hg] Dr. Alfredo Vasquez MD Work Phone: [facility] 11-08-2024 08:14-0500 Heart rate 69 /min Dr. Alfredo Vasquez MD Work Phone: [facility] 11-08-2024 08:14-0500 Respiratory rate 18 /min Dr. Alfredo Vasquez MD Work Phone: [facility] 11-08-2024 08:14-0500 SaO2% (BldA) [Mass fraction] 94 % Dr. Alfredo Vasquez MD Work Phone: [facility] 11-08-2024 08:14-0500 Systolic blood pressure 114 mm[Hg] Dr. Alfredo Vasquez MD Work Phone: [facility] 11-06-2024 21:00-0500 Diastolic blood pressure 68 mm[Hg] Dr. Alfredo Vasquez MD Work Phone: [facility] 11-06-2024 21:00-0500 Heart rate 73 /min Dr. Alfredo Vasquez MD Work Phone: [facility] 11-06-2024 21:00-0500 Respiratory rate 20 /min Dr. Alfredo Vasquez MD Work Phone: [facility] 11-06-2024 21:00-0500 SaO2% (BldA) [Mass fraction] 96 % Dr. Alfredo Vasquez MD Work Phone: [facility] 11-06-2024 21:00-0500 Systolic blood pressure 128 mm[Hg] Dr. Alfredo Vasquez MD Work Phone: [facility] 11-06-2024 18:25-0500 Body mass index (BMI) [Ratio] 30.4 kg/m2 Dr. Alfredo Vasquez MD Work Phone: [facility] 11-06-2024 18:25-0500 Body weight 104.[address] Alfredo Vasquez MD Work Phone: [facility] 11-06-2024 18:20-0500 Body temperature 98.6 [degF] Dr. Alfredo Vasquez MD Work Phone: [facility] 07-30-2024 11:36-0400 Body height 185.4 cm Corrie Riley MD Work Phone: [facility] 07-30-2024 11:36-0400 Body mass index (BMI) [Ratio] 30.27 kg/m2 Corrie Riley MD Work Phone: [facility] 07-30-2024 11:36-0400 Body temperature 97.59 [degF] Corrie Riley MD Work Phone: [facility] 07-30-2024 11:36-0400 Body weight 104.06 kg Corrie Riley MD Work Phone: [facility] 06-06-2024 11:10-0400 Body height 185.4 cm Devon Dias MD Work Phone: [facility] 06-06-2024 11:10-0400 Body mass index (BMI) [Ratio] 30.15 kg/m2 Devon Dias MD Work Phone: [facility] 06-06-2024 11:10-0400 Body temperature 98.01 [degF] Devon Dias MD Work Phone: [facility] 06-06-2024 11:10-0400 Body weight 103.65 kg Devon Dias MD Work Phone: [facility] 06-06-2024 11:10-0400 Diastolic blood pressure 73 mm[Hg] Devon Dias MD Work Phone: [facility] 06-06-2024 11:10-0400 Heart rate 66 /min Devon Dias MD Work Phone: [facility] 06-06-2024 11:10-0400 Respiratory rate 20 /min Devon Dias MD Work Phone: [facility] 06-06-2024 11:10-0400 SaO2% (BldA) [Mass fraction] 97 % Devon Dias MD Work Phone: [facility] 06-06-2024 11:10-0400 Systolic blood pressure 126 mm[Hg] Devon Dias MD Work Phone: [facility] 03-25-2024 09:55-0400 Diastolic blood pressure 70 mm[Hg] Massimo Vizcarra MD Work Phone: [facility] 03-25-2024 09:55-0400 Heart rate 69 /min Massimo Vizcarra MD Work Phone: [facility] 03-25-2024 09:55-0400 Respiratory rate 16 /min Massimo Vizcarra MD Work Phone: [facility] 03-25-2024 09:55-0400 SaO2% (BldA) [Mass fraction] 95 % Massimo Vizcarra MD Work Phone: [facility] 03-25-2024 09:55-0400 Systolic blood pressure 152 mm[Hg] Massimo Vizcarra MD Work Phone: [facility] 03-25-2024 09:50-0400 Body temperature 97.39 [degF] Massimo Vizcarra MD Work Phone: [facility] 03-25-2024 07:00-0400 Body height 185.4 cm Massimo Vizcarra MD Work Phone: [facility] 03-25-2024 07:00-0400 Body mass index (BMI) [Ratio] 29.9 kg/m2 Massimo Vizcarra MD Work Phone: [facility] 03-25-2024 07:00-0400 Body weight 102.78 kg Massimo Vizcarra MD Work Phone: [facility] 03-01-2024 11:17-0400 Body height 185.4 cm Devon Dias MD Work Phone: [facility] 03-01-2024 11:17-0400 Body mass index (BMI) [Ratio] 30.08 kg/m2 Devon Dias MD Work Phone: [facility] 03-01-2024 11:17-0400 Body temperature 98.29 [degF] Devon Dias MD Work Phone: [facility] 03-01-2024 11:17-0400 Body weight 103.42 kg Devon Dias MD Work Phone: [facility] 03-01-2024 11:17-0400 Diastolic blood pressure 85 mm[Hg] Devon Dias MD Work Phone: [facility] 03-01-2024 11:17-0400 Heart rate 70 /min Devon Dias MD Work Phone: [facility] 03-01-2024 11:17-0400 Systolic blood pressure 130 mm[Hg] Devon Dias MD Work Phone: [facility] 10-26-2023 10:45-0500 Body height 185.4 cm Devon Dias MD Work Phone: [facility] 10-26-2023 10:45-0500 Body mass index (BMI) [Ratio] 29.69 kg/m2 Devon Dias MD Work Phone: [facility] 10-26-2023 10:45-0500 Body temperature 98.2 [degF] Devon Dias MD Work Phone: [facility] 10-26-2023 10:45-0500 Body weight 102.06 kg Devon Dias MD Work Phone: [facility] 10-26-2023 10:45-0500 Diastolic blood pressure 72 mm[Hg] Devon Dias MD Work Phone: [facility] 10-26-2023 10:45-0500 Heart rate 61 /min Devon Dias MD Work Phone: [facility] 10-26-2023 10:45-0500 Systolic blood pressure 124 mm[Hg] Devon Dias MD Work Phone: [facility] 08-31-2023 11:10-0400 Body temperature 98.8 [degF] Devon Dias MD Work Phone: [facility] 08-31-2023 11:10-0400 Diastolic blood pressure 68 mm[Hg] Devon Dias MD Work Phone: [facility] 08-31-2023 11:10-0400 Heart rate 68 /min Devon Dias MD Work Phone: [facility] 08-31-2023 11:10-0400 Respiratory rate 18 /min Devon Dias MD Work Phone: [facility] 08-31-2023 11:10-0400 Systolic blood pressure 122 mm[Hg] Devon Dias MD Work Phone: [facility] 07-27-2023 08:23-0400 Body height 185.42 cm Devon Dias MD Work Phone: [facility] [place] [address] [place] Work Phone: 07-27-2023 08:23-0400 Body mass index (BMI) [Ratio] 28.63 kg/m2 Devon Dias MD Work Phone: [facility] [place] Work Phone: 07-27-2023 08:23-0400 Body surface area Derived from formula 2.23 m2 Devon Dias MD Work Phone: [facility] [place] Work Phone: 07-27-2023 08:23-0400 Body temperature 98.3 [degF] Devon Dias MD Work Phone: [facility] [place] Work Phone: 07-27-2023 08:23-0400 Body weight 98.43 kg Devon Dias MD Work Phone: [facility] [place] Work Phone: 07-27-2023 08:23-0400 Diastolic blood pressure 77 mm[Hg] Devon Dias MD Work Phone: [facility] [place] Work Phone: 07-27-2023 08:23-0400 Heart rate 73 /min Devon Dias MD Work Phone: [facility] [place] Work Phone: 07-27-2023 08:23-0400 Respiratory rate 16 /min Devon Dias MD Work Phone: [facility] [place] Work Phone: 07-27-2023 08:23-0400 SaO2% (BldA) [Mass fraction] 73 % Devon Dias MD Work Phone: [facility] [place] Work Phone: 07-27-2023 08:23-0400 Systolic blood pressure 142 mm[Hg] Devon Dias MD Work Phone: [facility] [place] Work Phone: 05-12-2023 13:02-0400 Body height 185.42 cm Devon Dias MD Work Phone: [facility] [place] Work Phone: 05-12-2023 13:02-0400 Body mass index (BMI) [Ratio] 27.87 kg/m2 Devon Dias MD Work Phone: [facility] [place] Work Phone: 05-12-2023 13:02-0400 Body surface area Derived from formula 2.2 m2 Devon Dias MD Work Phone: [facility] [place] Work Phone: 05-12-2023 13:02-0400 Body temperature 97.3 [degF] Devon Dias MD Work Phone: [facility] [place] Work Phone: 05-12-2023 13:02-0400 Body weight 95.82 kg Devon Dias MD Work Phone: [facility] [place] Work Phone: 05-12-2023 13:02-0400 Diastolic blood pressure 76 mm[Hg] Devon Dias MD Work Phone: [facility] [place] Work Phone: 05-12-2023 13:02-0400 Heart rate 65 /min Devon Dias MD Work Phone: [facility] [place] Work Phone: 05-12-2023 13:02-0400 Systolic blood pressure 127 mm[Hg] Devon Dias MD Work Phone: [facility] [place] Work Phone: 03-17-2023 13:15-0400 Body height 185.42 cm Devon Dias MD Work Phone: [facility] [place] Work Phone: 03-17-2023 13:15-0400 Body mass index (BMI) [Ratio] 28.79 kg/m2 Devon Dias MD Work Phone: [facility] [place] Work Phone: 03-17-2023 13:15-0400 Body surface area Derived from formula 2.23 m2 Devon Dias MD Work Phone: [facility] [place] Work Phone: 03-17-2023 13:15-0400 Body temperature 98.1 [degF] Devon Dias MD Work Phone: [facility] [place] Work Phone: 03-17-2023 13:15-0400 Body weight 99 kg Devon Dias MD Work Phone: [facility] [place] Work Phone: 03-17-2023 13:15-0400 Diastolic blood pressure 76 mm[Hg] Devon Dias MD Work Phone: [facility] [place] Work Phone: 03-17-2023 13:15-0400 Heart rate 75 /min Devon Dias MD Work Phone: [facility] [place] Work Phone: 03-17-2023 13:15-0400 Systolic blood pressure 145 mm[Hg] Devon Dias MD Work Phone: [facility] [place] Work Phone: NEGATED: Highlighted [id number] 10:41-0400 BMI (Body Mass Index) 29.13 kg/m2 Cas[facility] T[facility] [facility] Work Phone: NEGATED: Highlighted [id number] 10:41-0400 BP Diastolic 73 mm[Hg] [facility] Work Phone: NEGATED: Highlighted [id number] 10:41-0400 BP Systolic 116 mm[Hg] [facility] Work Phone: NEGATED: Highlighted [id number] 10:41-0400 Height 185.42 cm [facility] Work Phone: NEGATED: Highlighted [id number] 10:41-0400 Height 185 cm Casper Tittel [facility] Work Phone: NEGATED: Highlighted [id number] 10:41-0400 Pulse (Heart Rate) 74 /min Casper Tittel [facility] Work Phone: NEGATED: Highlighted [id number] 10:41-0400 Weight 99.79 kg [facility] Work Phone: NEGATED: Highlighted [id number] 10:41-0400 Weight 100 kg Casper Tittel [facility] Work Phone: Encounters Encounter Date Encounter Type Care Provider Facility Start: 05-08-2025 End: 05-08-[address] Alfredo Vasquez MD Work Phone: [facility] Work Phone: Start: 05-08-2025 End: 05-08-[address] Alfredo Vasquez MD -Laboratory [facility] Start: 05-08-2025 End: 05-08-2025 ambulatory Alfredo Vasquez Facility:[facility] Start: 05-06-2025 End: 05-06-2025 ambulatory SERGIO [facility] Start: 05-06-2025 End: 05-06-2025 Subsequent hospital visit by physician Sergio Pino MD Work Phone: [facility] Cath/EP Lab Comment on above: Constrictive pericar ditis Start: 04-24-2025 End: 04-24-[address] Alfredo Vasquze MD Work Phone: -Laboratory [facility] Start: 04-24-2025 End: 04-24-2025 ambulatory Almaz Fowler PA-C Work Phone: [facility] Start: 04-23-2025 End: 04-23-2025 Office outpatient new 45 minutes Sergio Pino MD Work Phone: [facility] Comment on above: Shortness of breath (Primary Dx); Constrictive pericarditis Start: 04-23-2025 End: 04-24-2025 ambulatory [place] [facility] Start: 04-09-2025 End: 04-09-[address] Jana Blake MD -[facility] Work Phone: Start: 04-09-2025 End: 04-09-[address] Alfredo Vasquez MD Work Phone: [facility] Work Phone: Start: 04-08-2025 Non-patient / Non-visit Dr. El GAITAN -[facility] Start: 04-08-2025 End: 04-08-[address] Alfredo Vasquez MD Work Phone: [facility] Work Phone: Start: 04-08-2025 End: 04-08-2025 Patient encounter procedure Sonny HUBBARD -Cardiovascular Services Work Phone: Start: 04-08-2025 End: 04-08-2025 ambulatory Sonny Gallardo INSURANCE VERIFICATION CLERK Facility:[facility] Start: 04-01-2025 End: 04-01-2025 Patient encounter procedure Sonny Gallardo INSURANCE VERIFICATION CLERK-C -[facility] [place] Work Phone: Start: 04-01-2025 End: 04-01-2025 ambulatory Sonny Gallardo INSURANCE VERIFICATION CLERK Facility:[facility] Start: 03-21-2025 End: 03-21-[address] Jana Blake MD -[facility] Work Phone: Start: 03-21-2025 End: 03-21-2025 ambulatory Jana Blake Facility:[facility] Start: 03-19-2025 End: 03-19-2025 Office outpatient visit 10 minutes Марина Moeller MANAGER EVENT-ADVANCED PRACTICE PROVIDER Work Phone: [facility] Comment on above: Diaphragm dysfunctio n (Primary Dx) Start: 03-19-2025 End: 03-19-2025 ambulatory [facility] Start: 02-19-2025 End: 02-20-2025 Evaluation and management of inpatient Elizabeth Santos MD Work Phone: [facility] 9 Comment on above: Diaphragm paralysis (Primary Dx); Acute post-operative pain Start: 02-14-2025 Evaluation and manag ement of inpatient ELIZABETH SANTOS [facility] Start: 02-06-2025 End: 02-06-2025 Office outpatient new 60 minutes Марина Moeller MANAGER EVENT-ADVANCED PRACTICE PROVIDER Work Phone: [facility] Comment on above: Diaphragm dysfunctio n (Primary Dx); Shortness of breath Start: 02-06-2025 End: 02-06-2025 Subsequent hospital visit by physician [facility] Comment on above: Diaphragm dysfunctio n Start: 02-06-2025 End: 02-06-2025 ambulatory [facility] Start: 01-31-2025 End: 01-31-[address] Alfredo Vasquez MD Work Phone: [facility] Work Phone: Start: 01-31-2025 End: 01-31-[address] Alfredo Vasquez MD -Laboratory, [facility] Start: 01-31-2025 End: 01-31-2025 ambulatory Alfredo Vasquez Facility:[facility] Start: 01-28-2025 End: 01-28-[address] Alfredo Vasquez MD Work Phone: [facility] Work Phone: Start: 01-28-2025 End: 01-28-[address] Lm Hill MD -Radiology, [facility] Work Phone: Start: 01-28-2025 End: 01-28-2025 ambulatory Lm Hill Facility:[facility] Start: 01-22-2025 End: 01-22-[address] Alfredo Vasquez MD Work Phone: [facility] Work Phone: Start: 01-22-2025 End: 01-22-[address] Lm Hill MD -Radiology, [facility] Work Phone: Start: 01-22-2025 End: 01-22-2025 ambulatory Lm Hill Facility:[facility] Start: 11-18-2024 ambulatory [facility] Start: 11-18-2024 End: 11-18-2024 Patient encounter procedure Almaz ALEMAN -Pulmonary Services/Neurology Work Phone: Start: 11-18-2024 End: 11-18-2024 ambulatory Almaz ALEMAN Facility:[facility] Start: 11-08-2024 Non-patient / Non-visit Dr. El GAITAN -[facility] Start: 11-08-2024 End: 11-08-2024 Patient encounter procedure Almaz ALEMAN -[facility] Work Phone: Start: 11-08-2024 End: 11-08-2024 ambulatory Alfredo Vasquez Facility:[facility] Start: 11-08-2024 End: 11-08-2024 ambulatory Alfredo Vasquez Facility:[facility] Start: 11-06-2024 End: 11-06-2024 Emergency department patient visit Dr. Delmar Wild MD -Emergency Department Work Phone: Start: 11-01-2024 End: 11-01-2024 Patient encounter procedure Almaz Valladares PA -Radiology, [facility] Work Phone: Start: 11-01-2024 End: 11-01-2024 ambulatory Alfredo Vasquez Facility:[facility] Start: 10-29-2024 End: 10-29-2024 Office outpatient visit 25 minutes Corrie Riley MD Work Phone: 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 Alfredo Vasquez MD -Laboratory, [facility] Start: 10-22-2024 End: 10-22-2024 ambulatory Alfredo Vasquez Facility:[facility] Start: 09-11-2024 ambulatory Alfredo Vasquez [facility] Start: 09-11-2024 End: 09-11-2024 ambulatory Jana Blake Facility:[facility] Start: 08-30-2024 End: 08-30-2024 ambulatory Alfredo Vasquez Facility:[facility] Start: 08-13-2024 End: 08-13-2024 ambulatory Jana Blake Facility:[facility] Start: 08-07-2024 ambulatory Anna Wallis Facility :[facility] Start: 08-07-2024 End: 08-08-2024 Evaluation and management of inpatient Rafia Radhabirdie Storyam Facility:[facility] Start: 08-05-2024 ambulatory Jian Olivas [facility] Start: 08-03-2024 ambulatory Te Bill [facility] Start: 08-03-2024 End: 08-05-2024 Evaluation and management of inpatient Te Landy Facility:[facility] Start: 08-03-2024 ambulatory Vi Carcamo Fa cility:[facility] Start: 07-30-2024 End: 07-30-2024 Office outpatient visit 25 minutes Corrie Riley MD Work Phone: [facility] Comment on above: 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); Dizziness and giddiness; Other polyneuropathy Start: 07-30-2024 End: 07-30-2024 ambulatory CORRIE RILEY [facility] Ambulatory Start: 07-10-2024 ambulatory Vi Carcamo Fa cility:[facility] Start: 07-08-2024 End: 07-08-2024 ambulatory Alfredo Vasquez Facility:[facility] Start: 06-17-2024 End: 06-17-2024 [facility] Start: 06-06-2024 End: 06-06-2024 Office outpatient visit 15 minutes Devon Dias MD Work Phone: [place] [phone] Comment on above: Dizziness and giddin ess Start: 06-06-2024 End: 06-06-2024 ambulatory DEVON DIAS [facility] Start: 04-23-2024 End: 04-23-2024 Postop follow up visit related to original px Massimo Vizcarra MD Work Phone: [facility] Comment on above: Aftercare following surgery of a sensory organ (Primary Dx); Dislocation of intraocular lens, initial encounter; Diabetic macular edema Start: 04-23-2024 ambulatory MASSIMO Wharton [facility] Facility: [facility] Start: 04-08-2024 End: 04-08-2024 ambulatory [facility] Start: 04-02-2024 End: 04-02-2024 Postop follow up visit related to original px Massimo Vizcarra MD Work Phone: [facility] [place] Comment on above: Aftercare following surgery of a sensory organ (Primary Dx) Start: 04-02-2024 ambulatory MASSIMO Wharton [facility] Facility: [facility] Start: 03-26-2024 End: 03-26-2024 Postop follow up visit related to original px Massimo Vizcarra MD Work Phone: [facility] [place] Comment on above: Aftercare following surgery of a sensory organ (Primary Dx) Start: 03-26-2024 ambulatory MASSIMO Wharton [facility] Facility: [facility] Start: 03-25-2024 End: 03-25-2024 ambulatory MASSIMO Wharton [facility] Facility:[facility] Start: 03-25-2024 End: 03-25-2024 Subsequent hospital visit by physician Massimo Vizcarra MD Work Phone: [facility] Comment on above: Dislocation of intra ocular lens, initial encounter Start: 03-15-2024 Encounter for other preprocedural examination SAIYA FALCON Facility:[facility] Start: 03-14-2024 End: 03-14-2024 Office outpatient new 45 minutes Massimo Vizcarra MD Work Phone: [facility] Comment on above: Dislocation of intra ocular lens, initial encounter (Primary Dx); Phacodonesis; Pseudophakia, left eye; Retinal detachment, right Start: 03-14-2024 ambulatory MASSIMO Wharton [facility] Facility: [facility] Start: 03-07-2024 End: 03-07-2024 ambulatory [facility] Work Phone: Start: 03-07-2024 End: 03-07-2024 Patient encounter procedure [facility] Start: 03-01-2024 End: 03-01-2024 ambulatory DEVON DIAS [facility] Start: 03-01-2024 End: 03-01-2024 Office outpatient visit 15 minutes Devon Dias MD Work Phone: [facility] 1 Comment on above: Dizziness and giddin ess Start: 10-26-2023 End: 10-26-2023 ambulatory DEVON DIAS [facility] Start: 10-26-2023 End: 10-26-2023 Office outpatient visit 15 minutes Devon Dias MD Work Phone: [facility] 1 Comment on above: Peripheral vestibulo rigoberto of right ear; Persistent postural-perceptual dizziness Start: 08-31-2023 End: 08-31-2023 Office outpatient visit 25 minutes Devon Dias MD Work Phone: [facility] 1 Comment on above: Persistent postural- perceptual dizziness (Primary Dx) Start: 08-31-2023 End: 08-31-2023 ambulatory DEVON DIAS [facility] Start: 08-16-2023 End: 08-16-2023 ambulatory [facility] Work Phone: Start: 08-16-2023 End: 08-16-2023 Patient encounter procedure [facility] Start: 07-27-2023 Current tobacco non- user cad cap copd pv robyn Dias MD Work Phone: GB-Espwezvdjrfbef-Ner ma [address] [place] Work Phone: Start: 07-27-2023 FUV, Provider: Devon Dias, Status: Pen, Time: 8:15 AM Provider AMPrudence Work Phone: [facility] Work Phone: Start: 06-21-2023 End: 10-03-2023 [facility]A Start: 05-12-2023 Current tobacco non- user cad cap copd pv robyn Dias MD Work Phone: BS-Dexbewqyrfvgwd-Uon ma [address] [place] Work Phone: Start: 05-12-2023 ambulatory Devon Dias Facility :[id number] Start: 05-08-2023 Patient encounter procedure Aden Stringer, [facility] Work Phone: OV-Sgfwzeswc-Wehnafo 4[address] Work Phone: Start: 05-08-2023 [address] Mr[address] Aden Reyna elza [place] Facility:[id number] Start: 03-17-2023 Current tobacco non- user cad cap copd pv dm Devon Dias MD Work Phone: KN-Dcjrpuckrbyzyl-Xdw ma [address] [place] Work Phone: Start: 03-17-2023 ambulatory Devon Dias Facility :[id number] Start: 08-31-2022 End: 08-31-2022 ambulatory [facility] Work Phone: Start: 08-31-2022 End: 08-31-2022 Patient encounter procedure [facility] Start: 03-18-2022 End: 03-18-2022 Patient encounter procedure [facility] Start: 03-10-2022 End: 03-10-2022 Patient encounter procedure [facility] Start: 05-02-2019 End: 05-13-2019 Patient encounter procedure Pankaj Wilhelm DO Work Phone: [facility] Work Phone: Start: 06-20-2018 Patient encounter Emigdio Luciano Maste rs Facility:[id number] Start: 06-11-2018 Patient encounter Emigdio Luciano Maste rs Facility:[id number] Start: 06-04-2018 Patient encounter Emigdio Luciano Maste rs Facility:[id number] Start: 05-25-2018 Patient encounter Emigdio Luciano Maste rs Facility:[id number] Start: 04-30-2018 Patient encounter Emigdio Luciano Maste rs Facility:[id number] Start: 09-05-2017 Ambulatory SYMEON [facility] Start: 06-06-2017 End: 06-07-2017 Ambulatory SYMEON [facility] Preoperative state Devon santos MD Work Phone: SN-Atsckdjlznyunr-Sqo ma [address] [place] Work Phone: Procedures Date Procedure Procedure Detail Performing Clinician Start: 05-08-2025 Assay of prostate sp ecific antigen total Dr. Alfredo Vasquez MD Work Phone: Comment on above: This test was perfor med using the [employer] tPSA method. Measured values of a patient sample can vary depending on the testing procedure used. PSA values determined on patient samples by different testing procedures cannot be used interchangeably. If there is a change in PSA assays while monitoring therapy, sequential testing should be performed to confirm baseline values. Start: 05-06-2025 Cardiac catheterizat ion study Sergio Pino MD Work Phone: Start: 05-06-2025 End: 05-06-2025 POCT O2 SATURATION Sergio Pino MD Work Phone: Start: 04-23-2025 Ecg routine ecg w/le ast 12 lds w/i&r Sergio Pino MD Work Phone: Start: 04-09-2025 Evaluation of diagno stic study results Dr. Alfredo Vasquez MD Work Phone: Start: 04-01-2025 X-ray of chest, PA a nd lateral views Dr. Alfredo Vasquez MD Work Phone: Start: 02-19-2025 Radiologic exam ches t single view Julia Martínez [facility] Work Phone: Start: 02-19-2025 PULSE OXIMETRY, CONTINUOUS David Trivedi MD Work Phone: Start: 02-19-2025 Blood typing serolog ic rh (d) David Trivedi MD Work Phone: Start: 02-06-2025 Radiologic exam ches t 2 views Марина Fernandez Sajan [facility] Work Phone: Start: 02-06-2025 Fluoroscopy up to 1 hour physician/qhp time Марина Moeller [facility] Work Phone: Start: 01-22-2025 X-ray of chest, PA a nd lateral views Dr. Alfredo Vasquez MD Work Phone: Start: 11-06-2024 X-ray of chest, PA a nd lateral views Dr. Alfredo Vasquez MD Work Phone: Start: 11-06-2024 SARS-CoV-2, Influenz a & RSV (PCR) Dr. Alfredo Vasquez MD Work Phone: Start: 11-01-2024 X-ray of chest, PA a nd lateral views Dr. Alfredo Vasquez MD Work Phone: Start: 04-23-2024 Optical coherence to mography of retina Massimo Vizcarra MD Work Phone: Start: 04-23-2024 Fundus photography w/interpretation & report Massimo Vizcarra MD Work Phone: Start: 04-08-2024 Comprehensive metabo lic 2000 panel - Serum or Plasma МАРИНА MOELLER Start: 03-14-2024 Oph bmtry prtl coher intrfrmtry io lens pwr june Massimo Vizcarra MD Work Phone: Start: 03-01-2024 Follow-up visit Follow-up DEVON DIAS Start: 05-02-2019 End: 05-13-2019 Blood pressure within normal parameters - no follow-up required Scot D Wilhelm DO Work Phone: Start: 05-02-2019 End: 05-13-2019 BMI documented as above normal parameters - follow-up documented Scot D Wilhelm DO Work Phone: Start: 05-02-2019 End: 05-02-2019 CERVICAL COLLAR SERPENTINE (BREG) Scot D Wilhelm DO Work Phone: Start: 05-02-2019 End: 05-13-2019 Documentation of current medications Scot D Wilhelm DO Work Phone: Start: 05-02-2019 End: 05-13-2019 Pain assessment documented as positive - follow-up documented Scot D Wilhelm DO Work Phone: Start: 05-02-2019 End: 05-13-2019 Tobacco non-user Scot D Wilhelm DO Work Phone: Cochlear Implant Devon pitt MD Work Phone: Plan of Treatment Date Care Activity Detail Author Start: 08-11-2026 DTaP/Tdap/Td Vaccine s (2 - Td or Tdap) DTaP/Tdap/Td Vaccines (2 - Td or Tdap) [facility] Start: 08-11-2026 Tetanus vaccination TETANUS [facility] Start: 05-01-2025 End: 05-01-2025 Admission to same day surgery center 05/01/2025 7:00 AM EDT - 05/01/2025 8:00 AM EDT Surgery [facility] [address] [place] [id number] Sergio Pino MD [address] [place] [address] Right heart cath [facility] Comment on above: Right heart cath Start: 05-01-2025 Subsequent hospital visit by physician [facility] Comment on above: Constrictive pericar ditis Start: 04-23-2025 End: 04-23-2026 Basic metabolic 1998 panel - Serum or Plasma Basic metabolic panel Lab Routine Shortness of breath Constrictive pericarditis Expected: 04/23/2025 (Approximate), Expires: 04/23/2026 [facility] [employer] Work Phone: Comment on above: Expected: 04/23/2025 (Approximate), Expires: 04/23/2026 Start: 04-23-2025 End: 04-23-2026 CBC panel - Blood by Automated count CBC Lab Routine Shortness of breath Constrictive pericarditis Expected: 04/23/2025 (Approximate), Expires: 04/23/2026 [facility] Comment on above: Expected: 04/23/2025 (Approximate), Expires: 04/23/2026 Start: 04-09-2025 Evaluation of diagnostic study results 12 Lead EKG performed by [facility] Start: 04-09-2025 Patient referral [facility] Work Phone: Start: 03-18-2025 End: 03-18-2025 Patient encounter procedure 03/18/2025 2:30 PM EDT Office Visit [facility] [address] [place] [address] [place] [address] [place] [address] [facility] Start: 02-19-2025 End: 02-19-2025 Admission to same day surgery center 02/19/2025 11:55 AM EDT - 02/19/2025 2:00 PM [place] [facility] [place] [address] [place] [address] [place] [address] [address] [place] [address] INSERTION, DIAPHRAGMATIC PACEMAKER, LAPAROSCOPIC [06599 (CPT ) +2 more] [facility] [place] Comment on above: INSERTION, DIAPHRAGM ATIC PACEMAKER, LAPAROSCOPIC [16000 (CPT ) +2 more] Start: 02-19-2025 End: 02-19-2025 Inc impltj nstim eltrd neuromuscular INSERTION, DIAPHRAGMATIC PACEMAKER, LAPAROSCOPIC Diaphragm paralysis 02/19/2025 11:55 AM EDT [facility] [place] Start: 02-19-2025 Subsequent hospital visit by physician 02/19/2025 10:25 AM EDT Hospital [place] [facility] [place] [address] [place] [address] [place] [address] [facility] [place] [address] [facility] [place] Start: 11-06-2024 [facility] Start: 11-06-2024 [facility] Start: 10-29-2024 End: 10-29-2024 Patient encounter procedure 10/29/2024 10:00 AM EST Office [facility] [address] [facility] [address] [place] [id number] [place] [address] [place], [place] [id number] [facility] Start: 07-21-2024 COVID-19 Vaccine () COVID-19 Vaccine () [facility] Start: 07-21-2024 COVID-19 Vaccine ( season) COVID-19 Vaccine ( season) [facility] Start: 07-21-2024 Influenza vaccination Influenza Vacc ine (#1) [facility] Start: 06-06-2024 End: 06-06-2024 Patient encounter procedure 06/06/2024 11:00 AM EDT Office Visit [place] [address] [address] [facility] [address] [place] [address] Devon Dias MD [address] [facility] [address] [place], [place] [id number] [place] [address] Start: 04-23-2024 End: 04-23-2024 Patient encounter procedure 04/23/2024 10:00 AM EDT Office Visit [address] [address] OhMassimo jimenez MD [address] [place] [address] [facility] Start: 04-02-2024 End: 04-02-2024 Patient encounter procedure 04/02/2024 10:40 AM EDT Office Visit [address] [address] OhMassimo jimenez MD [address] [place] [address] [facility] Start: 03-26-2024 End: 03-26-2024 Patient encounter procedure 03/26/2024 12:20 PM EDT Office Visit [address] [address] OhMassimo jimenez MD [address] [place] [address] [facility] Start: 03-25-2024 End: 03-25-2024 Admission to same day surgery center 03/25/2024 8:24 AM EDT - 03/25/2024 10:41 AM EDT Surgery [facility] [address] [place] [address] [address] [place] [address] Massimo Vizcarra MD [address] [place] [address] [address] [place] [address] VITRECTOMY MECHANICAL PARS PLANA APPROACH [facility] Comment on above: VITRECTOMY MECHANICA L PARS PLANA APPROACH Start: 03-25-2024 End: 03-25-2024 Exchange intraocular lens [facility] Start: 03-25-2024 End: 03-25-2024 Suture iris ciliary body spx retrieval suture [facility] Start: 03-25-2024 End: 03-25-2024 Vitrectomy mechanical pars plana [facility] Start: 03-25-2024 Subsequent hospital visit by physician 03/25/2024 7:00 AM EDT Hospital Encounter [facility] [address] [facility] [address] [place] [address] Massimo Vizcarra MD [address] [place] [address] [address] [place] [address] Dislocation of intraocular lens, initial encounter [facility] Comment on above: Dislocation of intra ocular lens, initial encounter Start: 03-15-2024 End: 03-15-2024 Patient encounter procedure 03/15/2024 11:00 AM EDT Office Visit [facility] [address] [facility] [address] [place] [address] Devon Dias MD [address] [facility] [address] [address], [place] [address] [facility] 1 Start: 03-02-2024 End: 03-02-2025 Comprehensive metabolic 2000 panel - Serum or Plasma Comprehensive Metabolic Panel Lab Routine Dizziness and giddiness Expected: 03/02/2024 (Approximate), Expires: 03/02/2025 [facility] Service Area Work Phone: Comment on above: Expected: 03/02/2024 (Approximate), Expires: 03/02/2025 Start: 03-02-2024 End: 03-02-2025 ECG 12 lead (Ancillary Performed) ECG 12 lead (Ancillary Performed) ECG Routine Dizziness and giddiness Expected: 03/02/2024 (Approximate), Expires: 03/02/2025 [facility] Work Phone: Comment on above: Expected: 03/02/2024 (Approximate), Expires: 03/02/2025 Start: 10-26-2023 FUV, Provider: Devon Dias, Status: Pen, Time: 10:30 AM FUV, Provider: Devon Dias, Status: Pen, Time: 10:30 AM [id number]-Kgs ma 205 [place] Work Phone: Start: 10-26-2023 End: 10-26-2023 Patient encounter procedure 10/26/2023 10:30 AM EST Office Visit [facility] 1 [address] [facility] [address] [address] Devon Dias MD [address] [facility], [facility] [place] [address] [facility] 1 Start: 07-21-2023 COVID-19 VACCINE ( season) COVID-19 VACCINE ( season) [facility] Start: 07-21-2023 COVID-19 Vaccine ( season) COVID-19 Vaccine ( season) [facility] Start: 05-12-2023 FUV, Provider: Devon Dias, Status: Pen, Time: 1:00 PM FUV, Provider: Devon Dias, Status: Pen, Time: 1:00 PM [id number] ma 205 [place] Work Phone: Start: 05-08-2023 ENG, Provider: Aden Groves, Status: Pen, Time: 1:00 PM ENG, Provider: Aden Groves, Status: Pen, Time: 1:00 PM [id number]-[id number]-Epg ma 205 [place] Work Phone: Start: 2022 RSV High Risk: (Elde rly (60+) or Population) (1 - 1-dose 75+ series) RSV High Risk: (Elderly (60+) or Population) (1 - 1-dose 75+ series) [facility] Start: 2022 RSV Immunization for Adults (1 - 1-dose 75+ series) RSV Immunization for Adults (1 - 1-dose 75+ series) [facility] [employer] Start: 11-19-2021 COVID-19 Vaccine (4 - Moderna series) COVID-19 Vaccine (4 - Moderna series) [facility] Start: 05-02-2019 End: 05-02-[address] Cervical CT Myelogram with CT Cervical [facility] Work Phone: Start: 09-26-2015 Screening for malign ant neoplasm of colon COLORECTAL CANCER SCREENING DISCUSSION [facility] Start: 2012 Pneumococcal Vaccine : 65+ Years (1 - PCV) Pneumococcal Vaccine: 65+ Years (1 - PCV) [facility] Start: 2007 RSV patient s and/or patients aged 60+ years (1 - 1-dose 60+ series) RSV patients and/or patients aged 60+ years (1 - 1-dose 60+ series) [facility] Start: 1966 Pneumococcal vaccination Pneumococcal Vaccine (1 of 2 - PCV) [facility] Start: 1966 Pneumococcal Vaccine : 50+ Years (1 of 2 - PCV) Pneumococcal Vaccine: 50+ Years (1 of 2 - PCV) [facility] Start: 1965 Hepatitis C screening Hepatitis C Sc reening [facility] Start: 1959 Depression Screening Depression Scre ening [facility] Start: 1953 Pneumococcal vaccination PNEUMOCOCCAL VACCINE SERIES (1 of 2 - PCV) [facility] Start: 1953 Pneumococcal Vaccine : 65+ Years (1 - PCV) Pneumococcal Vaccine: 65+ Years (1 - PCV) [facility] Start: 1953 Pneumococcal Vaccine : 65+ Years (1 of 2 - PCV) Pneumococcal Vaccine: 65+ Years (1 of 2 - PCV) [facility] Start: 1947 Hepatitis C screening HEPATITI S C VIRUS SCREENING [facility] Start: [address] Lipid [address] Lipid Panel [facility] Start: 1947 Medicare Annual Wellness (AWV) Medicare Annual Wellness (AWV) [facility] Start: 1945 Medicare Annual Wellness Visit Medicare Annual Wellness Visit (AWV) [facility] Electrocardiogram, 12-lead PRN ACS symptoms Electrocardiogram, 12-lead PRN ACS symptoms ECG Routine As needed until discontinued starting 02/19/2025 [facility] Work Phone: Comment on above: As needed until disc ontinued starting 02/19/[address] neuromuscular INSERTION, DIAPHRAGMATIC PACEMAKER, LAPAROSCOPIC Diaphragm paralysis Virtual [facility] End: 02-19-2025 Incentive spirometry Instruct Incentive spirometry Instruct Respiratory Care Routine Once for 1 Occurrences starting 02/19/2025 until 02/19/2025 [facility] Service Area Work Phone: Comment on above: Once for 1 Occurrenc es starting 02/19/2025 until 02/19/2025 Patient Education ED Dyspnea [facility] Work Phone: Patient referral [facility] Work Phone: RIGHT HEART CATH RIGHT HEART CAT H Constrictive pericarditis [facility] Immunizations Immunization Date Immunization Notes Care Provider Fa cility 08-04-2024 influenza, high dose seasonal, preservative-free Dr. Alfredo Vasquez MD Work Phone: [facility] 08-23-2023 influenza, injectabl e, quadrivalent, preservative free Devon Dias MD Work Phone: [facility] Work Phone: 08-23-2023 influenza virus vaccine, unspecified formulation Devon Dias MD Work Phone: [facility] Work Phone: 09-17-2022 Influenza, Seasonal, Quadrivalent, Adjuvanted Devon Dias MD Work Phone: [facility] Work Phone: 09-09-2021 influenza, injectabl e, quadrivalent, preservative free Devon Dias MD Work Phone: [facility] Work Phone: 01-08-2021 Moderna SARS-CoV-2 Vaccination Devon Dias MD Work Phone: [facility] Work Phone: 12-11-2020 Moderna SARS-CoV-2 Vaccination Devon Dias MD Work Phone: [facility] Work Phone: 10-29-2020 zoster vaccine recombinant Devon Dias MD Work Phone: [facility] Work Phone: 08-12-2020 zoster vaccine recombinant Devon Dias MD Work Phone: [facility] Work Phone: 08-27-2019 influenza, seasonal, injectable Devon Dias MD Work Phone: [facility] Work Phone: 08-23-2018 influenza, seasonal, injectable Devon Dias MD Work Phone: [facility] Work Phone: 08-22-2017 influenza, seasonal, injectable Devon Dias MD Work Phone: [facility] Work Phone: 08-11-2016 influenza, seasonal, injectable Devon Dias MD Work Phone: [facility] Work Phone: 08-11-2016 tetanus toxoid, reduced diphtheria toxoid, and acellular pertussis vaccine, adsorbed Devon Dias MD Work Phone: [facility] Work Phone: 08-21-2014 influenza, seasonal, injectable Devon Dias MD Work Phone: [facility] Work Phone: 07-26-2013 influenza, seasonal, injectable Devon Dias MD Work Phone: [facility] Work Phone: 09-28-2012 influenza, seasonal, injectable Devon Dias MD Work Phone: [facility] Work Phone: No information available. Geovanna Baca [facility] Work Phone: Payers Date Payer Category Payer Self-pay [id number] 2022 Medicare supplementa l policy (as second payer) [id number] 2022 Unknown 2016 Unknown [id number] 2012 Medicare [id number] [id number] 2012 Medicare [id number] 1947 Unknown [id number] 2.16.840.1.818866.3.579.2.356 1947 Unknown [id number] 2.16.840.1.281808.3.579.2.1046 1947 Unknown [id number] 2.16.840.1.943485.3.579.2.1046 1947 Unknown [id number] 2.16.840.1.019598.3.579.2.627 1947 Unknown [id number] 2.16.840.1.378595.3.579.2.594 1947 Unknown [id number] 2.840.1.199206.3.579.2.594 1947 Unknown [id number] 2.16840.1.553637.3.579.2.594 1947 Unknown [id number] 2.840.1.165595.3.579.2.594 1947 Unknown [id number] 2.840.1.695038.3.579.2.594 1947 Unknown [id number] 2.840.1.953662.3.579.2.594 1947 Unknown [id number] 2.16840.1.953823.3.579.2.1247 1947 Unknown [id number] 2.840.1.231799.3.579.2.1247 1947 Unknown [id number] 2.16840.1.955385.3.579.2.1247 1947 Unknown [id number] 2.16840.1.617248.3.579.2.1247 1947 Unknown [id number] 2.16840.1.450463.3.579.2.1245 1947 Unknown [id number] 2.16840.1.366659.3.579.2.1245 1947 Unknown [id number] 2.840.1.706315.3.579.2.124 1947 Unknown [id number] 2.840.1.070970.3.579.2.1244 1947 Unknown [id number] 2.840.1.744004.3.579.2.1243 1947 Unknown [id number] 2.840.1.264134.3.579.2.1243 1947 Unknown [id number] 2.840.1.762250.3.579.2.1243 1947 Unknown [id number] 2.840.1.063497.3.579.2.1244 Medicare [id number] Unknown [id number] 2.840.1.722800.3.579.2.462 Unknown [id number] 2.840.1.619379.3.579.2.462 Unknown [id number] 2.840.1.122791.3.579.2.462 Unknown [id number] 2.840.1.687745.3.579.2.462 Unknown [id number] 2.840.1.797832.3.579.2.462 Unknown [id number] 2840.1.762387.3.579.2.462 Unknown [id number] 2.840.1.843213.3.579.2.462 Unknown [id number] 2.840.1.737172.3.579.2.462 Unknown [id number] 2.840.1.915602.3.579.2.462 Unknown [id number] 2.840.1.367432.3.579.2.462 Unknown [id number] 2.840.1.757833.3.579.2.462 Unknown [id number] 2.16.840.1.837155.3.579.2.462 Unknown [id number] 2.16.840.1.520394.3.579.2.462 Unknown [id number] 2.16.840.1.101783.3.579.2.462 Unknown [id number] 2.16.840.1.670546.3.579.2.462 Unknown [id number] 2.16.840.1.872479.3.579.2.462 Unknown [id number] 2.16840.1.584347.3.579.2.462 Unknown [id number] 2.840.1.441143.3.579.2.462 Unknown [id number] 2.840.1.946997.3.579.2.462 Unknown [id number] 2.840.1.094797.3.579.2.462 Unknown [id number] 2.840.1.815758.3.579.2.462 Unknown [id number] 2.840.1.443178.3.579.2.462 Unknown [id number] 2.840.1.183363.3.579.2.462 Unknown [id number] 2.840.1.728608.3.579.2.462 Unknown [id number] 2.840.1.227932.3.579.2.462 Unknown [id number] 2.840.1.750894.3.579.2.462 Unknown [id number] 2.840.1.514148.3.579.2.462 Unknown [id number] 2.16840.1.144866.3.579.2.462 Unknown [id number] 2.16840.1.713068.3.579.2.462 Unknown [id number] 2.840.1.466184.3.579.2.462 Unknown [id number] 2.16.840.1.013310.3.579.2.462 Unknown [id number] 2.16.840.1.941318.3.579.2.462 Unknown [id number] 2.16.840.1.321992.3.579.2.462 Unknown [id number] 2.16.840.1.861705.3.579.2.462 Unknown [id number] 2.16.840.1.989689.3.579.2.462 Unknown [id number] 2.16.840.1.325881.3.579.2.462 Unknown [id number] 2.16.840.1.824832.3.579.2.462 Unknown [id number] 2.16.840.1.747377.3.579.2.462 Unknown [id number] 2.16.840.1.938019.3.579.2.462 Social History Date Type Detail Facility Start: 05-16-2021 End: 05-16-2021 Assertion Unknown if ever smoked [facility] Work Phone: Start: 1945 Sex Assigned At Male [facility] Start: 08-31-2023 End: 04-23-2025 Employed Employed [id number] [place] Work Phone: Start: 08-31-2023 End: 11-06-2024 Tobacco smoking status NHIS Never smoked tobacco [facility] Work Phone: Start: 08-31-2023 End: 03-14-2024 Tobacco use and exposure Smokeless tobacco non-user [facility] Work Phone: Start: 08-31-2023 End: 03-19-2025 Alcohol intake Lifetime non-drinker (finding) [facility] Work Phone: Start: 08-31-2023 End: 04-23-[address] [facility] Work Phone: Start: 1945 Sex Assigned At Not on file [facility] Work Phone: Start: 08-21-2023 End: 02-19-2025 Exposure to SARS-CoV-2 (event) Not sure [facility] Start: 10-26-2023 Tobacco use and exposure User of smokeless tobacco [facility] Work Phone: End: 11-20-2009 History of tobacco use Chews Tobacco [facility] Work Phone: How often to you hav e a drink containing alcohol? Never [facility] Work Phone: How many standard drinks containing alcohol do you have on a typical day? Patient does not drink [facility] Work Phone: (I/We) worried jose er (my/our) food would run out before (I/we) got money to buy more. Never true [facility] Work Phone: Start: 03-14-2024 Tobacco smoking stat us NHIS Ex-smoker [facility] History of tobacco use Current smoker [facility] History of tobacco use Cigarette Smoker O [facility] History of tobacco use Passive smoker [facility] Start: 03-25-2024 End: 04-23-2024 Alcoholic beverage intake Ex-drinker (finding) [facility] Start: 10-29-2024 End: 04-23-2025 Tobacco use and exposure Former smokeless tobacco user [facility] Work Phone: Start: 07-30-2024 Alcohol Comment social [facility] Work Phone: Start: 02-02-2025 End: 04-16-2025 Sex Male (finding) [facility] Has the electric, [employer], [employer], or water company threatened to shut off services in your home in past 12Mo No [facility] How hard is it for y ou to pay for the very basics like food, housing, medical care, and heating Not very hard [facility] Start: 04-23-2025 End: 04-28-2025 Alcoholic beverage intake Current drinker of alcohol (finding) [facility] Start: 04-23-2025 Alcohol Comment 1 beer monthly [facility] Medical Equipment Procedure Code Equipment Code Equipment Original Text Equipment Identifier Dates Putty, Dbx Bone 0.5ml Case [id number] Start: 08-15-2019 Comment on above: Description: Convert ed from [facility]. Please see archived information for full log information. Size 3.5mm X 15m m Case [id number] Start: 08-15-2019 Comment on above: Description: Convert ed from [facility]. Please see archived information for full log information. Additional Information:Size 3.5mm x 15mmper bill only [facility] 08/16/2019 925am Stand Alone Interbody Cage Case [id number] Start: 08-15-2019 Comment on above: Description: Convert ed from [facility]. Please see archived information for full log information. Additional Information:Stand alone interbody cageper bill only [facility] 08/16/2019 925am [id number] Start: 03-25-2024 Kit, Pacing, Diaphragm, Synapse - [id number] - [id number] Start: 02-19-2025 Clinical Notes 03-17-2023 to 05-06-2025 Discharge InstructionsPre-Sedation Documentation - Sergio Pino MD - 05/06/2025 7:41 AM EDTPre-Sedation Documentation - Sergio Pino MD - 05/06/2025 7:41 AM EDT Note Date & Type Note Facility 05-06-2025 Hospital Discharg e instructions Leidy Cotton RN - 05/06/2025 8:03 AM EDT Discharge Instructions Observe neck site for swelling, redness, warmth, or bleeding. If these occur, notify your doctor listed below. Do not lift anything over 10 pounds for the next 3 days. Slight swelling or bruising is expected. For oozing, apply pressure for 10-15 minutes For brisk bleeding that does not stop, come to the Emergency department Keep neck site covered for 5 days. Change bandage daily. Resume pre-procedure diet Take all medications as prescribed by your doctor Procedure Sedation Instructions If you have received sedation: you must have someone drive you home You should not drive a car, operate machinery, drink alcohol or perform any activity that requires alertness for the rest of the day. The effects of the sedative should be gone by tomorrow. documented in this encounter [facility] 05-06-2025 Nurse procedure note Sedation Plan ASA class 2 - patient with mild systemic disease Mallampati class: II - soft palate, uvula, fauces visible. Sedation plan: local anesthesia Risks, benefits, and alternatives discussed with patient. Sergio Pino MD, PhD Advanced Heart Failure Cardiology Electrical Prospecting Engineerbody care manager, [facility] Trial Manager, [facility] LVAD Program and CCU Mechanical Process Engineer, Department of Cardiovascular disease [facility] [place] 7:41 AM 05/06/25 [facility] 05-06-2025 Miscellaneous Notes Formattin g of this note might be different from the original. Sedation Plan ASA class 2 - patient with mild systemic disease Mallampati class: II - soft palate, uvula, fauces visible. Sedation plan: local anesthesia Risks, benefits, and alternatives discussed with patient. Sergio Pino MD, PhD Advanced Heart Failure Cardiology Electrical Prospecting Engineerbody care manager, [facility] Trial Manager, [facility] LVAD Program and CCU Mechanical Process Engineer, Department of Cardiovascular disease [facility] [place] 7:41 AM 05/06/25 documented in this encounter [facility] 05-06-2025 Attending History and physical note H&P reviewed. The patient was examined and there are no changes to the H&P. Source Note - Almaz Fowler PA-C - 04/24/2025 10:01 AM EDT H+ P copied to chart from Dr. Pino's progress note dated 04/23/[address] Pino. CARDIOLOGY HEART FAILURE PROGRESS NOTE Today's Date: 04/23/25 Chart and interval events reviewed. Chief Complaint Chief Complaint Patient presents with New Patient Hypertension Hyperlipidemia Coronary Artery Disease Subjective: Mr. 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 Blake for pericarditis, and symptoms of shortness of breath. Specifically he is being sent here for the possibility of constrictive pericarditis. Records indicate that a left heart catheterization in July 2024 showed moderate nonobstructive multivessel coronary artery disease. In the fall 2023 he presented to the hospital with unknown symptoms, but was found to have a moderate pericardial effusion and was placed on colchicine and indomethacin. Transthoracic echocardiogram in March 2025 reportedly showed LVEF 65% with a normal right ventricle, mild TR, and RVSP 30 mmHg. Currently, he reports SOB and dizziness, fatigue, but no chest pain anymore. He did have CP during his pericarditis but no longer. He has palpitations. BP today is 120/64 mmHg and HR of 64 bpm. Past Medical History: [Medical History] [Medical History] Past Medical History Diagnosis Date Coronary artery disease Hyperlipidemia Hypertension Past Surgical History [Surgical History] [Surgical History] Past Surgical History Procedure Laterality Date COCHLEAR IMPLANT DIAPHRAGM SURGERY 2024 GALLBLADDER SURGERY 1999 Family History [Family History] [Family History] No family history on file. Social History [Social History] [Social History] Tobacco Use Smoking status: Never Passive exposure: Past Smokeless tobacco: Former Substance Use Topics Alcohol use: Yes Alcohol/week: 1.0 standard drink of alcohol Types: 1 Cans of beer per week Comment: 1 beer monthly Allergies: [Allergies] [Allergies] Allergen Reactions Metoprolol Dizziness Didn't help dizziness/headaches Topiramate Other Other Reaction(s): Other (See Comments) Brain fog Other Reaction(s): Other, Other (See Comments) Brain fog Current Medications: [Current Medications] [Current Medications] Current Outpatient Medications Medication Sig Dispense Refill albuterol 108 (90 Base) MCG/ACT inhaler Inhale 2 puffs every 4 hours as needed. amLODIPine (Norvasc) 5 MG tablet Take 5 mg by mouth daily. aspirin 81 MG chewable tablet Chew 81 mg daily. B Complex-C (b complex-vitamin c) tablet Take 1 tablet by mouth every morning. coenzyme Q-10 50 MG capsule Take 200 mg by mouth daily. colchicine 0.6 MG tablet Take 0.6 mg by mouth daily. Docusate Sodium (DSS) 100 MG capsule Take 100 mg by mouth twice a day. lisinopril 20 MG tablet Take 20 mg by mouth daily. sertraline (Zoloft) 100 MG tablet Take 200 mg by mouth daily. simvastatin (Zocor) 40 MG tablet Take 40 mg by mouth daily. furosemide (Lasix) 20 MG tablet Take 20 mg by mouth daily. (Patient not taking: Reported on 04/23/2025) hydroCHLOROthiazide 12.5 MG tablet Take 12.5 mg by mouth daily. (Patient not taking: Reported on 04/23/2025) indomethacin (Indocin) 25 MG capsule Take 50 mg by mouth 3 times daily (with meals). tamsulosin (Flomax) 0.4 MG 24 hr capsule Take 0.4 mg by mouth daily. venlafaxine XR (Effexor XR) 150 MG 24 hr capsule Take 150 mg by mouth daily. No current facility-administered medications for this visit. Review of Systems: All other systems were reviewed and are negative other than as noted in the HPI. Vital Signs: Vitals Vitals: 04/23/25 1451 BP: 120/64 BP Location: Left arm Patient Position: Sitting BP Cuff Size: Adult Pulse: 64 SpO2: 98% Weight: 230 lb (104 kg) Height: 6' 1 (1.854 m) Body mass index is 30.34 kg/m . Wt Readings from Last 3 Encounters: 04/23/25 230 lb (104 kg) Physical Exam Constitutional: Appearance: Normal appearance. HENT: Head: Normocephalic and atraumatic. Neck: Vascular: No JVD. Cardiovascular: Heart sounds: Normal heart sounds, S1 normal and S2 normal. No systolic murmur is present. No diastolic murmur is present. No S3 or S4 sounds. Pulmonary: Effort: Pulmonary effort is normal. Breath sounds: Normal breath sounds. No decreased breath sounds, wheezing or rales. Musculoskeletal: Right lower leg: No edema. Left lower leg: No edema. Skin: General: Skin is warm and dry. Neurological: Mental Status: He is alert. CBC: No results for input(s): WBC, HGB, HCT, PLT in the last 72 hours. BMP:No results for input(s): NA, K, CL, CO2, BUN, CREATININE, GLU, LABGLOM in the last 72 hours. No lab exists for component: CA CMP: No results found for: NA, K, CL, CO2, BUN, CREATININE, GLUCOSE, CALCIUM, PROT, BILITOT, ALKPHOS, AST, ALT, LABGLOM, AGRATIO, GLOB Magnesium: No results found for: MG LFT: No results found for: ALT, AST, GGT, ALKPHOS, BILITOT INR:No results found for: INR, PROTIME PRO-BNP: No results found for: BNP TSH: No results found for: TSH Lipid Profile: No results found for: TRIG, HDL, LDLCALC, CHOL Hemoglobin A1C: No results found for: HGBA1C MACEY: No results found for: MACEY Ferritin: No results found for: FERRITIN HIV: No results found for: [id number] EKG: See Report Echo: See Report EF: No components found for: LVEF, LVEFMODE IMPRESSIONS: Diagnosis Plan 1. 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 I also did a POCUS and his septum did not have the movement consistent with restriction. Constriction unlikely in his case. He is frustrated with his symptoms and there is thought that CHF or constriction is a cause. Will set up for RHC. If he has obvious square root sign on the RHC, will progress to R/LHC with duel transducer. Will relay results to Dr. Blake. Coronary disease: Nonobstructive on his last heart catheterization. His current medications include simvastatin 40 mg/day and aspirin 81 mg/day. Hypertension: Today's blood pressure is normal. He is on amlodipine 5 mg/day, and lisinopril 20 mg/day. Today we will make no changes. Sergio Pino MD, PhD Advanced Heart Failure Cardiology Robotics Technician Prof Edwards, [facility] [place] 3:18 PM 04/23/25 Copied by Almaz Fowler PA-C. Cosigned by Sergio Pino MD at 04/24/2025 10:38 AM EDT [facility] 05-06-2025 Note H&P reviewed. The aline anton was examined and there are no changes to the H&P. [facility] 05-06-2025 History and physical note H&P reviewed. The patient was examined and there are no changes to the H&P. Source Note - Almaz Fowler PA-C - 04/24/2025 10:01 AM EDT H+ P copied to chart from Dr. Pino's progress note dated 04/23/[address] Pino. CARDIOLOGY HEART FAILURE PROGRESS NOTE Today's Date: 04/23/25 Chart and interval events reviewed. Chief Complaint Chief Complaint Patient presents with New Patient Hypertension Hyperlipidemia Coronary Artery Disease Subjective: Mr. 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 Blake for pericarditis, and symptoms of shortness of breath. Specifically he is being sent here for the possibility of constrictive pericarditis. Records indicate that a left heart catheterization in July 2024 showed moderate nonobstructive multivessel coronary artery disease. In the fall 2023 he presented to the hospital with unknown symptoms, but was found to have a moderate pericardial effusion and was placed on colchicine and indomethacin. Transthoracic echocardiogram in March 2025 reportedly showed LVEF 65% with a normal right ventricle, mild TR, and RVSP 30 mmHg. Currently, he reports SOB and dizziness, fatigue, but no chest pain anymore. He did have CP during his pericarditis but no longer. He has palpitations. BP today is 120/64 mmHg and HR of 64 bpm. Past Medical History: [Medical History] [Medical History] Past Medical History Diagnosis Date Coronary artery disease Hyperlipidemia Hypertension Past Surgical History [Surgical History] [Surgical History] Past Surgical History Procedure Laterality Date COCHLEAR IMPLANT DIAPHRAGM SURGERY 2024 GALLBLADDER SURGERY 1999 Family History [Family History] [Family History] No family history on file. Social History [Social History] [Social History] Tobacco Use Smoking status: Never Passive exposure: Past Smokeless tobacco: Former Substance Use Topics Alcohol use: Yes Alcohol/week: 1.0 standard drink of alcohol Types: 1 Cans of beer per week Comment: 1 beer monthly Allergies: [Allergies] [Allergies] Allergen Reactions Metoprolol Dizziness Didn't help dizziness/headaches Topiramate Other Other Reaction(s): Other (See Comments) Brain fog Other Reaction(s): Other, Other (See Comments) Brain fog Current Medications: [Current Medications] [Current Medications] Current Outpatient Medications Medication Sig Dispense Refill albuterol 108 (90 Base) MCG/ACT inhaler Inhale 2 puffs every 4 hours as needed. amLODIPine (Norvasc) 5 MG tablet Take 5 mg by mouth daily. aspirin 81 MG chewable tablet Chew 81 mg daily. B Complex-C (b complex-vitamin c) tablet Take 1 tablet by mouth every morning. coenzyme Q-10 50 MG capsule Take 200 mg by mouth daily. colchicine 0.6 MG tablet Take 0.6 mg by mouth daily. Docusate Sodium (DSS) 100 MG capsule Take 100 mg by mouth twice a day. lisinopril 20 MG tablet Take 20 mg by mouth daily. sertraline (Zoloft) 100 MG tablet Take 200 mg by mouth daily. simvastatin (Zocor) 40 MG tablet Take 40 mg by mouth daily. furosemide (Lasix) 20 MG tablet Take 20 mg by mouth daily. (Patient not taking: Reported on 04/23/2025) hydroCHLOROthiazide 12.5 MG tablet Take 12.5 mg by mouth daily. (Patient not taking: Reported on 04/23/2025) indomethacin (Indocin) 25 MG capsule Take 50 mg by mouth 3 times daily (with meals). tamsulosin (Flomax) 0.4 MG 24 hr capsule Take 0.4 mg by mouth daily. venlafaxine XR (Effexor XR) 150 MG 24 hr capsule Take 150 mg by mouth daily. No current facility-administered medications for this visit. Review of Systems: All other systems were reviewed and are negative other than as noted in the HPI. Vital Signs: Vitals Vitals: 04/23/25 1451 BP: 120/64 BP Location: Left arm Patient Position: Sitting BP Cuff Size: Adult Pulse: 64 SpO2: 98% Weight: 230 lb (104 kg) Height: 6' 1 (1.854 m) Body mass index is 30.34 kg/m . Wt Readings from Last 3 Encounters: 04/23/25 230 lb (104 kg) Physical Exam Constitutional: Appearance: Normal appearance. HENT: Head: Normocephalic and atraumatic. Neck: Vascular: No JVD. Cardiovascular: Heart sounds: Normal heart sounds, S1 normal and S2 normal. No systolic murmur is present. No diastolic murmur is present. No S3 or S4 sounds. Pulmonary: Effort: Pulmonary effort is normal. Breath sounds: Normal breath sounds. No decreased breath sounds, wheezing or rales. Musculoskeletal: Right lower leg: No edema. Left lower leg: No edema. Skin: General: Skin is warm and dry. Neurological: Mental Status: He is alert. CBC: No results for input(s): WBC, HGB, HCT, PLT in the last 72 hours. BMP:No results for input(s): NA, K, CL, CO2, BUN, CREATININE, GLU, LABGLOM in the last 72 hours. No lab exists for component: CA CMP: No results found for: NA, K, CL, CO2, BUN, CREATININE, GLUCOSE, CALCIUM, PROT, BILITOT, ALKPHOS, AST, ALT, LABGLOM, AGRATIO, GLOB Magnesium: No results found for: MG LFT: No results found for: ALT, AST, GGT, ALKPHOS, BILITOT INR:No results found for: INR, PROTIME PRO-BNP: No results found for: BNP TSH: No results found for: TSH Lipid Profile: No results found for: TRIG, HDL, LDLCALC, CHOL Hemoglobin A1C: No results found for: HGBA1C MACEY: No results found for: MACEY Ferritin: No results found for: FERRITIN HIV: No results found for: [id number] EKG: See Report Echo: See Report EF: No components found for: LVEF, LVEFMODE IMPRESSIONS: Diagnosis Plan 1. 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 I also did a POCUS and his septum did not have the movement consistent with restriction. Constriction unlikely in his case. He is frustrated with his symptoms and there is thought that CHF or constriction is a cause. Will set up for RHC. If he has obvious square root sign on the RHC, will progress to R/LHC with duel transducer. Will relay results to Dr. Blake. Coronary disease: Nonobstructive on his last heart catheterization. His current medications include simvastatin 40 mg/day and aspirin 81 mg/day. Hypertension: Today's blood pressure is normal. He is on amlodipine 5 mg/day, and lisinopril 20 mg/day. Today we will make no changes. Sergio Pino MD, PhD Advanced Heart Failure Cardiology Robotics Technician Prof Edwards, [facility] [employer]. [facility] [place] 3:18 PM 04/23/25 Copied by Almaz Fowler PA-C. Cosigned by Sergio Pino MD at 04/24/2025 10:38 AM EDT documented in this encounter [facility] [employer] 04-24-2025 History and physical note H+ P copied to chart from Dr. Pino's progress note dated 04/23/[address] Pino. CARDIOLOGY HEART FAILURE PROGRESS NOTE Today's Date: 04/23/25 Chart and interval events reviewed. Chief Complaint Chief Complaint Patient presents with New Patient Hypertension Hyperlipidemia Coronary Artery Disease Subjective: Mr. 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 Blake for pericarditis, and symptoms of shortness of breath. Specifically he is being sent here for the possibility of constrictive pericarditis. Records indicate that a left heart catheterization in July 2024 showed moderate nonobstructive multivessel coronary artery disease. In the fall 2023 he presented to the hospital with unknown symptoms, but was found to have a moderate pericardial effusion and was placed on colchicine and indomethacin. Transthoracic echocardiogram in March 2025 reportedly showed LVEF 65% with a normal right ventricle, mild TR, and RVSP 30 mmHg. Currently, he reports SOB and dizziness, fatigue, but no chest pain anymore. He did have CP during his pericarditis but no longer. He has palpitations. BP today is 120/64 mmHg and HR of 64 bpm. Past Medical History: [Medical History] [Medical History] Past Medical History Diagnosis Date Coronary artery disease Hyperlipidemia Hypertension Past Surgical History [Surgical History] [Surgical History] Past Surgical History Procedure Laterality Date COCHLEAR IMPLANT DIAPHRAGM SURGERY 2024 GALLBLADDER SURGERY 1999 Family History [Family History] [Family History] No family history on file. Social History [Social History] [Social History] Tobacco Use Smoking status: Never Passive exposure: Past Smokeless tobacco: Former Substance Use Topics Alcohol use: Yes Alcohol/week: 1.0 standard drink of alcohol Types: 1 Cans of beer per week Comment: 1 beer monthly Allergies: [Allergies] [Allergies] Allergen Reactions Metoprolol Dizziness Didn't help dizziness/headaches Topiramate Other Other Reaction(s): Other (See Comments) Brain fog Other Reaction(s): Other, Other (See Comments) Brain fog Current Medications: [Current Medications] [Current Medications] Current Outpatient Medications Medication Sig Dispense Refill albuterol 108 (90 Base) MCG/ACT inhaler Inhale 2 puffs every 4 hours as needed. amLODIPine (Norvasc) 5 MG tablet Take 5 mg by mouth daily. aspirin 81 MG chewable tablet Chew 81 mg daily. B Complex-C (b complex-vitamin c) tablet Take 1 tablet by mouth every morning. coenzyme Q-10 50 MG capsule Take 200 mg by mouth daily. colchicine 0.6 MG tablet Take 0.6 mg by mouth daily. Docusate Sodium (DSS) 100 MG capsule Take 100 mg by mouth twice a day. lisinopril 20 MG tablet Take 20 mg by mouth daily. sertraline (Zoloft) 100 MG tablet Take 200 mg by mouth daily. simvastatin (Zocor) 40 MG tablet Take 40 mg by mouth daily. furosemide (Lasix) 20 MG tablet Take 20 mg by mouth daily. (Patient not taking: Reported on 04/23/2025) hydroCHLOROthiazide 12.5 MG tablet Take 12.5 mg by mouth daily. (Patient not taking: Reported on 04/23/2025) indomethacin (Indocin) 25 MG capsule Take 50 mg by mouth 3 times daily (with meals). tamsulosin (Flomax) 0.4 MG 24 hr capsule Take 0.4 mg by mouth daily. venlafaxine XR (Effexor XR) 150 MG 24 hr capsule Take 150 mg by mouth daily. No current facility-administered medications for this visit. Review of Systems: All other systems were reviewed and are negative other than as noted in the HPI. Vital Signs: Vitals Vitals: 04/23/25 1451 BP: 120/64 BP Location: Left arm Patient Position: Sitting BP Cuff Size: Adult Pulse: 64 SpO2: 98% Weight: 230 lb (104 kg) Height: 6' 1 (1.854 m) Body mass index is 30.34 kg/m . Wt Readings from Last 3 Encounters: 04/23/25 230 lb (104 kg) Physical Exam Constitutional: Appearance: Normal appearance. HENT: Head: Normocephalic and atraumatic. Neck: Vascular: No JVD. Cardiovascular: Heart sounds: Normal heart sounds, S1 normal and S2 normal. No systolic murmur is present. No diastolic murmur is present. No S3 or S4 sounds. Pulmonary: Effort: Pulmonary effort is normal. Breath sounds: Normal breath sounds. No decreased breath sounds, wheezing or rales. Musculoskeletal: Right lower leg: No edema. Left lower leg: No edema. Skin: General: Skin is warm and dry. Neurological: Mental Status: He is alert. CBC: No results for input(s): WBC, HGB, HCT, PLT in the last 72 hours. BMP:No results for input(s): NA, K, CL, CO2, BUN, CREATININE, GLU, LABGLOM in the last 72 hours. No lab exists for component: CA CMP: No results found for: NA, K, CL, CO2, BUN, CREATININE, GLUCOSE, CALCIUM, PROT, BILITOT, ALKPHOS, AST, ALT, LABGLOM, AGRATIO, GLOB Magnesium: No results found for: MG LFT: No results found for: ALT, AST, GGT, ALKPHOS, BILITOT INR:No results found for: INR, PROTIME PRO-BNP: No results found for: BNP TSH: No results found for: TSH Lipid Profile: No results found for: TRIG, HDL, LDLCALC, CHOL Hemoglobin A1C: No results found for: HGBA1C MACEY: No results found for: MACEY Ferritin: No results found for: FERRITIN HIV: No results found for: [id number] EKG: See Report Echo: See Report EF: No components found for: LVEF, LVEFMODE IMPRESSIONS: Diagnosis Plan 1. 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 I also did a POCUS and his septum did not have the movement consistent with restriction. Constriction unlikely in his case. He is frustrated with his symptoms and there is thought that CHF or constriction is a cause. Will set up for RHC. If he has obvious square root sign on the RHC, will progress to R/LHC with duel transducer. Will relay results to Dr. Blake. Coronary disease: Nonobstructive on his last heart catheterization. His current medications include simvastatin 40 mg/day and aspirin 81 mg/day. Hypertension: Today's blood pressure is normal. He is on amlodipine 5 mg/day, and lisinopril 20 mg/day. Today we will make no changes. Sergio Pino MD, PhD Advanced Heart Failure Cardiology Robotics Technician Prof Edwards, [facility] [employer]. [facility] [place] 3:18 PM 04/23/25 Copied by Almaz Fowler PA-C. Cosigned by Sergio Pino MD at 04/24/2025 10:38 AM EDT [employer] Work Phone: 04-24-2025 History and physical note H+ P copied to chart from Dr. Pino's progress note dated 04/23/[address] Pino. CARDIOLOGY HEART FAILURE PROGRESS NOTE Today's Date: 04/23/25 Chart and interval events reviewed. Chief Complaint Chief Complaint Patient presents with New Patient Hypertension Hyperlipidemia Coronary Artery Disease Subjective: Mr. 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 Blake for pericarditis, and symptoms of shortness of breath. Specifically he is being sent here for the possibility of constrictive pericarditis. Records indicate that a left heart catheterization in July 2024 showed moderate nonobstructive multivessel coronary artery disease. In the fall 2023 he presented to the hospital with unknown symptoms, but was found to have a moderate pericardial effusion and was placed on colchicine and indomethacin. Transthoracic echocardiogram in March 2025 reportedly showed LVEF 65% with a normal right ventricle, mild TR, and RVSP 30 mmHg. Currently, he reports SOB and dizziness, fatigue, but no chest pain anymore. He did have CP during his pericarditis but no longer. He has palpitations. BP today is 120/64 mmHg and HR of 64 bpm. Past Medical History: [Medical History] [Medical History] Past Medical History Diagnosis Date Coronary artery disease Hyperlipidemia Hypertension Past Surgical History [Surgical History] [Surgical History] Past Surgical History Procedure Laterality Date COCHLEAR IMPLANT DIAPHRAGM SURGERY 2024 GALLBLADDER SURGERY 1999 Family History [Family History] [Family History] No family history on file. Social History [Social History] [Social History] Tobacco Use Smoking status: Never Passive exposure: Past Smokeless tobacco: Former Substance Use Topics Alcohol use: Yes Alcohol/week: 1.0 standard drink of alcohol Types: 1 Cans of beer per week Comment: 1 beer monthly Allergies: [Allergies] [Allergies] Allergen Reactions Metoprolol Dizziness Didn't help dizziness/headaches Topiramate Other Other Reaction(s): Other (See Comments) Brain fog Other Reaction(s): Other, Other (See Comments) Brain fog Current Medications: [Current Medications] [Current Medications] Current Outpatient Medications Medication Sig Dispense Refill albuterol 108 (90 Base) MCG/ACT inhaler Inhale 2 puffs every 4 hours as needed. amLODIPine (Norvasc) 5 MG tablet Take 5 mg by mouth daily. aspirin 81 MG chewable tablet Chew 81 mg daily. B Complex-C (b complex-vitamin c) tablet Take 1 tablet by mouth every morning. coenzyme Q-10 50 MG capsule Take 200 mg by mouth daily. colchicine 0.6 MG tablet Take 0.6 mg by mouth daily. Docusate Sodium (DSS) 100 MG capsule Take 100 mg by mouth twice a day. lisinopril 20 MG tablet Take 20 mg by mouth daily. sertraline (Zoloft) 100 MG tablet Take 200 mg by mouth daily. simvastatin (Zocor) 40 MG tablet Take 40 mg by mouth daily. furosemide (Lasix) 20 MG tablet Take 20 mg by mouth daily. (Patient not taking: Reported on 04/23/2025) hydroCHLOROthiazide 12.5 MG tablet Take 12.5 mg by mouth daily. (Patient not taking: Reported on 04/23/2025) indomethacin (Indocin) 25 MG capsule Take 50 mg by mouth 3 times daily (with meals). tamsulosin (Flomax) 0.4 MG 24 hr capsule Take 0.4 mg by mouth daily. venlafaxine XR (Effexor XR) 150 MG 24 hr capsule Take 150 mg by mouth daily. No current facility-administered medications for this visit. Review of Systems: All other systems were reviewed and are negative other than as noted in the HPI. Vital Signs: Vitals Vitals: 04/23/25 1451 BP: 120/64 BP Location: Left arm Patient Position: Sitting BP Cuff Size: Adult Pulse: 64 SpO2: 98% Weight: 230 lb (104 kg) Height: 6' 1 (1.854 m) Body mass index is 30.34 kg/m . Wt Readings from Last 3 Encounters: 04/23/25 230 lb (104 kg) Physical Exam Constitutional: Appearance: Normal appearance. HENT: Head: Normocephalic and atraumatic. Neck: Vascular: No JVD. Cardiovascular: Heart sounds: Normal heart sounds, S1 normal and S2 normal. No systolic murmur is present. No diastolic murmur is present. No S3 or S4 sounds. Pulmonary: Effort: Pulmonary effort is normal. Breath sounds: Normal breath sounds. No decreased breath sounds, wheezing or rales. Musculoskeletal: Right lower leg: No edema. Left lower leg: No edema. Skin: General: Skin is warm and dry. Neurological: Mental Status: He is alert. CBC: No results for input(s): WBC, HGB, HCT, PLT in the last 72 hours. BMP:No results for input(s): NA, K, CL, CO2, BUN, CREATININE, GLU, LABGLOM in the last 72 hours. No lab exists for component: CA CMP: No results found for: NA, K, CL, CO2, BUN, CREATININE, GLUCOSE, CALCIUM, PROT, BILITOT, ALKPHOS, AST, ALT, LABGLOM, AGRATIO, GLOB Magnesium: No results found for: MG LFT: No results found for: ALT, AST, GGT, ALKPHOS, BILITOT INR:No results found for: INR, PROTIME PRO-BNP: No results found for: BNP TSH: No results found for: TSH Lipid Profile: No results found for: TRIG, HDL, LDLCALC, CHOL Hemoglobin A1C: No results found for: HGBA1C MACEY: No results found for: MACEY Ferritin: No results found for: FERRITIN HIV: No results found for: [id number] EKG: See Report Echo: See Report EF: No components found for: LVEF, LVEFMODE IMPRESSIONS: Diagnosis Plan 1. 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 I also did a POCUS and his septum did not have the movement consistent with restriction. Constriction unlikely in his case. He is frustrated with his symptoms and there is thought that CHF or constriction is a cause. Will set up for RHC. If he has obvious square root sign on the RHC, will progress to R/LHC with duel transducer. Will relay results to Dr. Blake. Coronary disease: Nonobstructive on his last heart catheterization. His current medications include simvastatin 40 mg/day and aspirin 81 mg/day. Hypertension: Today's blood pressure is normal. He is on amlodipine 5 mg/day, and lisinopril 20 mg/day. Today we will make no changes. Sergio Pino MD, PhD Advanced Heart Failure Cardiology Robotics Technician Prof Edwards, [employer]. [facility] [place] 3:18 PM 04/23/25 Copied by Almaz Fowler PA-C. Cosigned by Sergio Pino MD at 04/24/2025 10:38 AM EDT documented in this encounter [facility] 04-24-2025 Note H+ P copied to chart from Dr. Pino's progress note dated 04/23/[address] Pino. CARDIOLOGY HEART FAILURE PROGRESS NOTE Today's Date: 04/23/25 Chart and interval events reviewed. Chief Complaint Chief Complaint Patient presents with New Patient Hypertension Hyperlipidemia Coronary Artery Disease Subjective: Mr. 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 Blake for pericarditis, and symptoms of shortness of breath. Specifically he is being sent here for the possibility of constrictive pericarditis. Records indicate that a left heart catheterization in July 2024 showed moderate nonobstructive multivessel coronary artery disease. In the fall 2023 he presented to the hospital with unknown symptoms, but was found to have a moderate pericardial effusion and was placed on colchicine and indomethacin. Transthoracic echocardiogram in March 2025 reportedly showed LVEF 65% with a normal right ventricle, mild TR, and RVSP 30 mmHg. Currently, he reports SOB and dizziness, fatigue, but no chest pain anymore. He did have CP during his pericarditis but no longer. He has palpitations. BP today is 120/64 mmHg and HR of 64 bpm. Past Medical History: [Medical History] [Medical History] Past Medical History Diagnosis Date Coronary artery disease Hyperlipidemia Hypertension Past Surgical History [Surgical History] [Surgical History] Past Surgical History Procedure Laterality Date COCHLEAR IMPLANT DIAPHRAGM SURGERY 2024 GALLBLADDER SURGERY 1999 Family History [Family History] [Family History] No family history on file. Social History [Social History] [Social History] Tobacco Use Smoking status: Never Passive exposure: Past Smokeless tobacco: Former Substance Use Topics Alcohol use: Yes Alcohol/week: 1.0 standard drink of alcohol Types: 1 Cans of beer per week Comment: 1 beer monthly Allergies: [Allergies] [Allergies] Allergen Reactions Metoprolol Dizziness Didn't help dizziness/headaches Topiramate Other Other Reaction(s): Other (See Comments) Brain fog Other Reaction(s): Other, Other (See Comments) Brain fog Current Medications: [Current Medications] [Current Medications] Current Outpatient Medications Medication Sig Dispense Refill albuterol 108 (90 Base) MCG/ACT inhaler Inhale 2 puffs every 4 hours as needed. amLODIPine (Norvasc) 5 MG tablet Take 5 mg by mouth daily. aspirin 81 MG chewable tablet Chew 81 mg daily. B Complex-C (b complex-vitamin c) tablet Take 1 tablet by mouth every morning. coenzyme Q-10 50 MG capsule Take 200 mg by mouth daily. colchicine 0.6 MG tablet Take 0.6 mg by mouth daily. Docusate Sodium (DSS) 100 MG capsule Take 100 mg by mouth twice a day. lisinopril 20 MG tablet Take 20 mg by mouth daily. sertraline (Zoloft) 100 MG tablet Take 200 mg by mouth daily. simvastatin (Zocor) 40 MG tablet Take 40 mg by mouth daily. furosemide (Lasix) 20 MG tablet Take 20 mg by mouth daily. (Patient not taking: Reported on 04/23/2025) hydroCHLOROthiazide 12.5 MG tablet Take 12.5 mg by mouth daily. (Patient not taking: Reported on 04/23/2025) indomethacin (Indocin) 25 MG capsule Take 50 mg by mouth 3 times daily (with meals). tamsulosin (Flomax) 0.4 MG 24 hr capsule Take 0.4 mg by mouth daily. venlafaxine XR (Effexor XR) 150 MG 24 hr capsule Take 150 mg by mouth daily. No current facility-administered medications for this visit. Review of Systems: All other systems were reviewed and are negative other than as noted in the HPI. Vital Signs: Vitals Vitals: 04/23/25 1451 BP: 120/64 BP Location: Left arm Patient Position: Sitting BP Cuff Size: Adult Pulse: 64 SpO2: 98% Weight: 230 lb (104 kg) Height: 6' 1 (1.854 m) Body mass index is 30.34 kg/m?. Wt Readings from Last 3 Encounters: 04/23/25 230 lb (104 kg) Physical Exam Constitutional: Appearance: Normal appearance. HENT: Head: Normocephalic and atraumatic. Neck: Vascular: No JVD. Cardiovascular: Heart sounds: Normal heart sounds, S1 normal and S2 normal. No systolic murmur is present. No diastolic murmur is present. No S3 or S4 sounds. Pulmonary: Effort: Pulmonary effort is normal. Breath sounds: Normal breath sounds. No decreased breath sounds, wheezing or rales. Musculoskeletal: Right lower leg: No edema. Left lower leg: No edema. Skin: General: Skin is warm and dry. Neurological: Mental Status: He is alert. CBC: No results for input(s): WBC, HGB, HCT, PLT in the last 72 hours. BMP:No results for input(s): NA, K, CL, CO2, BUN, CREATININE, GLU, LABGLOM in the last 72 hours. No lab exists for component: CA CMP: No result (more content not included)... [facility] 04-24-2025 Note H+ P copied to chart from Dr. Pino's progress note dated 04/23/[address] Pino. CARDIOLOGY HEART FAILURE PROGRESS NOTE Today's Date: 04/23/25 Chart and interval events reviewed. Chief Complaint Chief Complaint Patient presents with New Patient Hypertension Hyperlipidemia Coronary Artery Disease Subjective: Mr. 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 Blake for pericarditis, and symptoms of shortness of breath. Specifically he is being sent here for the possibility of constrictive pericarditis. Records indicate that a left heart catheterization in July 2024 showed moderate nonobstructive multivessel coronary artery disease. In the fall 2023 he presented to the hospital with unknown symptoms, but was found to have a moderate pericardial effusion and was placed on colchicine and indomethacin. Transthoracic echocardiogram in March 2025 reportedly showed LVEF 65% with a normal right ventricle, mild TR, and RVSP 30 mmHg. Currently, he reports SOB and dizziness, fatigue, but no chest pain anymore. He did have CP during his pericarditis but no longer. He has palpitations. BP today is 120/64 mmHg and HR of 64 bpm. Past Medical History: [Medical History] [Medical History] Past Medical History Diagnosis Date Coronary artery disease Hyperlipidemia Hypertension Past Surgical History [Surgical History] [Surgical History] Past Surgical History Procedure Laterality Date COCHLEAR IMPLANT DIAPHRAGM SURGERY 2024 GALLBLADDER SURGERY 1999 Family History [Family History] [Family History] No family history on file. Social History [Social History] [Social History] Tobacco Use Smoking status: Never Passive exposure: Past Smokeless tobacco: Former Substance Use Topics Alcohol use: Yes Alcohol/week: 1.0 standard drink of alcohol Types: 1 Cans of beer per week Comment: 1 beer monthly Allergies: [Allergies] [Allergies] Allergen Reactions Metoprolol Dizziness Didn't help dizziness/headaches Topiramate Other Other Reaction(s): Other (See Comments) Brain fog Other Reaction(s): Other, Other (See Comments) Brain fog Current Medications: [Current Medications] [Current Medications] Current Outpatient Medications Medication Sig Dispense Refill albuterol 108 (90 Base) MCG/ACT inhaler Inhale 2 puffs every 4 hours as needed. amLODIPine (Norvasc) 5 MG tablet Take 5 mg by mouth daily. aspirin 81 MG chewable tablet Chew 81 mg daily. B Complex-C (b complex-vitamin c) tablet Take 1 tablet by mouth every morning. coenzyme Q-10 50 MG capsule Take 200 mg by mouth daily. colchicine 0.6 MG tablet Take 0.6 mg by mouth daily. Docusate Sodium (DSS) 100 MG capsule Take 100 mg by mouth twice a day. lisinopril 20 MG tablet Take 20 mg by mouth daily. sertraline (Zoloft) 100 MG tablet Take 200 mg by mouth daily. simvastatin (Zocor) 40 MG tablet Take 40 mg by mouth daily. furosemide (Lasix) 20 MG tablet Take 20 mg by mouth daily. (Patient not taking: Reported on 04/23/2025) hydroCHLOROthiazide 12.5 MG tablet Take 12.5 mg by mouth daily. (Patient not taking: Reported on 04/23/2025) indomethacin (Indocin) 25 MG capsule Take 50 mg by mouth 3 times daily (with meals). tamsulosin (Flomax) 0.4 MG 24 hr capsule Take 0.4 mg by mouth daily. venlafaxine XR (Effexor XR) 150 MG 24 hr capsule Take 150 mg by mouth daily. No current facility-administered medications for this visit. Review of Systems: All other systems were reviewed and are negative other than as noted in the HPI. Vital Signs: Vitals Vitals: 04/23/25 1451 BP: 120/64 BP Location: Left arm Patient Position: Sitting BP Cuff Size: Adult Pulse: 64 SpO2: 98% Weight: 230 lb (104 kg) Height: 6' 1 (1.854 m) Body mass index is 30.34 kg/m?. Wt Readings from Last 3 Encounters: 04/23/25 230 lb (104 kg) Physical Exam Constitutional: Appearance: Normal appearance. HENT: Head: Normocephalic and atraumatic. Neck: Vascular: No JVD. Cardiovascular: Heart sounds: Normal heart sounds, S1 normal and S2 normal. No systolic murmur is present. No diastolic murmur is present. No S3 or S4 sounds. Pulmonary: Effort: Pulmonary effort is normal. Breath sounds: Normal breath sounds. No decreased breath sounds, wheezing or rales. Musculoskeletal: Right lower leg: No edema. Left lower leg: No edema. Skin: General: Skin is warm and dry. Neurological: Mental Status: He is alert. CBC: No results for input(s): WBC, HGB, HCT, PLT in the last 72 hours. BMP:No results for input(s): NA, K, CL, CO2, BUN, CREATININE, GLU, LABGLOM in the last 72 hours. No lab exists for component: CA CMP: No result (more content not included)... [facility] 04-23-2025 Note PROCEDURE: RIGHT HEA RT CATH PROCEDURE DATE: 05/06 PROCEDURE TIME: 7 am ARRIVE AT 6 am Report to the Central Lounge (first floor) at the hospital entrance at [address] [place] [address]. Nothing to eat or drink after midnight prior to your procedure unless otherwise instructed by your doctor. You may take your morning medications as directed by physician with a sip of water unless specified below. Bring a complete list of all of your medications and dosages. Take Amlodipine and Lisinopril am of procedure Aspirin 81 mg mg as usual on the day of procedure. No diabetes No dye used Please make arrangements for a tower truck driver after the procedure. You will not be able to drive for 24 to 72 hours. Possibility for overnight stay - if on CPAP, please bring machine with you. If you have any questions regarding your medications, please call your doctor's office. All patients will be called the afternoon prior to the procedure with specific instructions if there should be any changes. If you do not receive a call by 4:30 pm, please call the Prep and Recovery area at [phone]. The schedule is not finalized until the afternoon, so please avoid calling before 4:30 pm. Pt will get labwork by Saturday 04/28. [facility] 04-23-2025 History of Presen t illness Narrative CARDIOLOGY HEART FAILURE PROGRESS NOTE Today's Date: 04/23/25 Chart and interval events reviewed. Chief Complaint Chief Complaint Patient presents with New Patient Hypertension Hyperlipidemia Coronary Artery Disease Subjective: Mr. 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 Blake for pericarditis, and symptoms of shortness of breath. Specifically he is being sent here for the possibility of constrictive pericarditis. Records indicate that a left heart catheterization in July 2024 showed moderate nonobstructive multivessel coronary artery disease. In the fall 2023 he presented to the hospital with unknown symptoms, but was found to have a moderate pericardial effusion and was placed on colchicine and indomethacin. Transthoracic echocardiogram in March 2025 reportedly showed LVEF 65% with a normal right ventricle, mild TR, and RVSP 30 mmHg. Currently, he reports SOB and dizziness, fatigue, but no chest pain anymore. He did have CP during his pericarditis but no longer. He has palpitations. BP today is 120/64 mmHg and HR of 64 bpm. Past Medical History: Medical History[1] Past Surgical History Surgical History[2] Family History Family History[3] Social History Social History[4] Allergies: Allergies[5] Current Medications: Current Medications[6] Review of Systems: All other systems were reviewed and are negative other than as noted in the HPI. Vital Signs: Vitals: 04/23/25 1451 BP: 120/64 BP Location: Left arm Patient Position: Sitting BP Cuff Size: Adult Pulse: 64 SpO2: 98% Weight: 230 lb (104 kg) Height: 6' 1 (1.854 m) Body mass index is 30.34 kg/m . Wt Readings from Last 3 Encounters: 04/23/25 230 lb (104 kg) Physical Exam Constitutional: Appearance: Normal appearance. HENT: Head: Normocephalic and atraumatic. Neck: Vascular: No JVD. Cardiovascular: Heart sounds: Normal heart sounds, S1 normal and S2 normal. No systolic murmur is present. No diastolic murmur is present. No S3 or S4 sounds. Pulmonary: Effort: Pulmonary effort is normal. Breath sounds: Normal breath sounds. No decreased breath sounds, wheezing or rales. Musculoskeletal: Right lower leg: No edema. Left lower leg: No edema. Skin: General: Skin is warm and dry. Neurological: Mental Status: He is alert. CBC: No results for input(s): WBC, HGB, HCT, PLT in the last 72 hours. BMP:No results for input(s): NA, K, CL, CO2, BUN, CREATININE, GLU, LABGLOM in the last 72 hours. No lab exists for component: CA CMP: No results found for: NA, K, CL, CO2, BUN, CREATININE, GLUCOSE, CALCIUM, PROT, BILITOT, ALKPHOS, AST, ALT, LABGLOM, AGRATIO, GLOB Magnesium: No results found for: MG LFT: No results found for: ALT, AST, GGT, ALKPHOS, BILITOT INR:No results found for: INR, PROTIME PRO-BNP: No results found for: BNP TSH: No results found for: TSH Lipid Profile: No results found for: TRIG, HDL, LDLCALC, CHOL Hemoglobin A1C: No results found for: HGBA1C MACEY: No results found for: MACEY Ferritin: No results found for: FERRITIN HIV: No results found for: [id number] EKG: See Report Echo: See Report EF: No components found for: LVEF, LVEFMODE IMPRESSIONS: Diagnosis Plan 1. 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 I also did a POCUS and his septum did not have the movement consistent with restriction. Constriction unlikely in his case. He is frustrated with his symptoms and there is thought that CHF or constriction is a cause. Will set up for RHC. If he has obvious square root sign on the RHC, will progress to R/LHC with duel transducer. Will relay results to Dr. Blake. Coronary disease: Nonobstructive on his last heart catheterization. His current medications include simvastatin 40 mg/day and aspirin 81 mg/day. Hypertension: Today's blood pressure is normal. He is on amlodipine 5 mg/day, and lisinopril 20 mg/day. Today we will make no changes. Sergio Pino MD, PhD Advanced Heart Failure Cardiology Robotics Technician Prof Edwards, [employer]. [facility] [place] 3:18 PM 04/23/25 [1] Past Medical History: Diagnosis Date Coronary artery disease Hyperlipidemia Hypertension [2] Past Surgical History: Procedure Laterality Date COCHLEAR IMPLANT DIAPHRAGM SURGERY 2024 GALLBLADDER SURGERY 1999 [3] No family history on file. [4] Social History Tobacco Use Smoking status: Never Passive exposure: Past Smokeless tobacco: Former Substance Use Topics Alcohol use: Yes Alcohol/week: 1.0 standard drink of alcohol Types: 1 Cans of beer per week Comment: 1 beer monthly [5] Allergies Allergen Reactions Metoprolol Dizziness Didn't help dizziness/headaches Topiramate Other Other Reaction(s): Other (See Comments) Brain fog Other Reaction(s): Other, Other (See Comments) Brain fog [6] Current Outpatient Medications Medication Sig Dispense Refill albuterol 108 (90 Base) MCG/ACT inhaler Inhale 2 puffs every 4 hours as needed. amLODIPine (Norvasc) 5 MG tablet Take 5 mg by mouth daily. aspirin 81 MG chewable tablet Chew 81 mg daily. B Complex-C (b complex-vitamin c) tablet Take 1 tablet by mouth every morning. coenzyme Q-10 50 MG capsule Take 200 mg by mouth daily. colchicine 0.6 MG tablet Take 0.6 mg by mouth daily. Docusate Sodium (DSS) 100 MG capsule Take 100 mg by mouth twice a day. lisinopril 20 MG tablet Take 20 mg by mouth daily. sertraline (Zoloft) 100 MG tablet Take 200 mg by mouth daily. simvastatin (Zocor) 40 MG tablet Take 40 mg by mouth daily. furosemide (Lasix) 20 MG tablet Take 20 mg by mouth daily. (Patient not taking: Reported on 04/23/2025) hydroCHLOROthiazide 12.5 MG tablet Take 12.5 mg by mouth daily. (Patient not taking: Reported on 04/23/2025) indomethacin (Indocin) 25 MG capsule Take 50 mg by mouth 3 times daily (with meals). tamsulosin (Flomax) 0.4 MG 24 hr capsule Take 0.4 mg by mouth daily. venlafaxine XR (Effexor XR) 150 MG 24 hr capsule Take 150 mg by mouth daily. No current facility-administered medications for this visit. documented in this encounter [facility] 04-23-2025 Note CARDIOLOGY HEART DAFNE LURE PROGRESS NOTE Today's Date: 04/23/25 Chart and interval events reviewed. Chief Complaint Chief Complaint Patient presents with New Patient Hypertension Hyperlipidemia Coronary Artery Disease Subjective: Mr. 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 Blake for pericarditis, and symptoms of shortness of breath. Specifically he is being sent here for the possibility of constrictive pericarditis. Records indicate that a left heart catheterization in July 2024 showed moderate nonobstructive multivessel coronary artery disease. In the fall 2023 he presented to the hospital with unknown symptoms, but was found to have a moderate pericardial effusion and was placed on colchicine and indomethacin. Transthoracic echocardiogram in March 2025 reportedly showed LVEF 65% with a normal right ventricle, mild TR, and RVSP 30 mmHg. Currently, he reports SOB and dizziness, fatigue, but no chest pain anymore. He did have CP during his pericarditis but no longer. He has palpitations. BP today is 120/64 mmHg and HR of 64 bpm. Past Medical History: Medical History[1] Past Surgical History Surgical History[2] Family History Family History[3] Social History Social History[4] Allergies: Allergies[5] Current Medications: Current Medications[6] Review of Systems: All other systems were reviewed and are negative other than as noted in the HPI. Vital Signs: Vitals: 04/23/25 1451 BP: 120/64 BP Location: Left arm Patient Position: Sitting BP Cuff Size: Adult Pulse: 64 SpO2: 98% Weight: 230 lb (104 kg) Height: 6' 1 (1.854 m) Body mass index is 30.34 kg/m?. Wt Readings from Last 3 Encounters: 04/23/25 230 lb (104 kg) Physical Exam Constitutional: Appearance: Normal appearance. HENT: Head: Normocephalic and atraumatic. Neck: Vascular: No JVD. Cardiovascular: Heart sounds: Normal heart sounds, S1 normal and S2 normal. No systolic murmur is present. No diastolic murmur is present. No S3 or S4 sounds. Pulmonary: Effort: Pulmonary effort is normal. Breath sounds: Normal breath sounds. No decreased breath sounds, wheezing or rales. Musculoskeletal: Right lower leg: No edema. Left lower leg: No edema. Skin: General: Skin is warm and dry. Neurological: Mental Status: He is alert. CBC: No results for input(s): WBC, HGB, HCT, PLT in the last 72 hours. BMP:No results for input(s): NA, K, CL, CO2, BUN, CREATININE, GLU, LABGLOM in the last 72 hours. No lab exists for component: CA CMP: No results found for: NA, K, CL, CO2, BUN, CREATININE, GLUCOSE, CALCIUM, PROT, BILITOT, ALKPHOS, AST, ALT, LABGLOM, AGRATIO, GLOB Magnesium: No results found for: MG LFT: No results found for: ALT, AST, GGT, ALKPHOS, BILITOT INR:No results found for: INR, PROTIME PRO-BNP: No results found for: BNP TSH: No results found for: TSH Lipid Profile: No results found for: TRIG, HDL, LDLCALC, CHOL Hemoglobin A1C: No results found for: HGBA1C MACEY: No results found for: MACEY Ferritin: No results found for: FERRITIN HIV: No results found for: [id number] EKG: See Report Echo: See Report EF: No components found for: LVEF, LVEFMODE IMPRESSIONS: Diagnosis Plan 1. 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 I also did a POCUS and his septum did not have the movement consistent with restriction. Constriction unlikely in his case. He is frustrated with his symptoms and there is thought that CHF or constriction is a cause. Will set up for RHC. If he has obvious square root sign on the RHC, will progress to R/LHC with duel transducer. Will relay results to Dr. Blake. Coronary disease: Nonobstructive on his last heart catheterization. His current medications include simvastatin 40 mg/day and aspirin 81 mg/day. Hypertension: Today's blood pressure is normal. He is on amlodipine 5 mg/day, and lisinopril 20 mg/day. Today we will make no changes. Sergio Pino MD, PhD Advanced Heart Failure Cardiology Robotics Technician Prof Edwards, [facility] [place] 3:18 PM 04/23/25 [1] Past Medical History: Diagnosis Date Coronary artery disease Hyperlipidemia Hypertension [2] Past Surgical History: Procedure Laterality Date COCHLEAR IMPLANT DIAPHRAGM SURGERY 2024 GALLBLADDER SURGERY 1999 [3] No family history on file. [4] Social History Tobacco Use Smoking status: Never Passive exposure: Past Smok (more content not included)... [facility] [employer] [facility] 03-21-2025 Evaluation note Diagnosis Onset Date Resolution Coronary artery disease acute M 2024 7:59am Hypercholesterolemia acute March 21, 2025 7:59am Pericarditis acute March 21 7:59am Shortness of breath acute March 212024 7:59am Hypertension chronic March 21 7:59am Pericarditis acute April 09 9:50am Shortness of breath acute March 212024 9:50am [facility] Work Phone: 1([phone]) 802-534304-30-2025 History of Present illness Narrative* Марина Moeller, MANAGER EVENT-ADVANCED PRACTICE PROVIDER - 03/19/2025 11:00 AM EDT Subjective Patient ID: Bhavna Roca is a 79 y.o. male. HPI Mr. Roca came in today accompanied by his . 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 He came in for what was scheduled as wire repair but he had a ground that was out of the skin not out of the block. He has been using the ground patch. I found the skin on his abdomen to have areas bright red, contact rash from the anode patch. He and report he has no real issues with skin until he used the anode patch. 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 He is still winded and has had no change in symptoms in the past month. He does feel fully recovered from surgery. Review of Systems Objective Physical Exam Constitutional: Appearance: Normal appearance. HENT: Head: Comments: Wear cochlear implant Pulmonary: Effort: Pulmonary effort is normal. Abdominal: Palpations: Abdomen is soft. Comments: Wire sites clean, rash over right side of abd - red, no open area. Musculoskeletal: General: Normal range of motion. Skin: General: Skin is warm and dry. Neurological: Mental Status: He is alert. Assessment/Plan There are no diagnoses linked to this encounter. 79 year old with left HD paralysis who actually had ground wire out of the skin. Dr. Santos came into replace the electrode. The abd was prepped and draped in the usual fashion. The electrode replaced. Then the block was changed and all electrodes were working. We did increase power settings. He should transition to higher unit in 2 weeks. We should see back in 3-4 months and he should call withproblems. [facility] Work Phone: 1(869) 965-225804-03-2025 Nurse Note* Katya Yu RN - 02/20/2025 11:18 AM EDT Patient was discharged home without homecare. RN removed patient's peripheral IV prior to discharge. RN went over discharge instruction with patient and patient's family member. Patient did not have any questions/comments regarding discharge instructions. Patient left via hospital independent accompanied by his family member with his belongings. [facility]04-03-2025 Nurse Note* Katya Yu RN - 02/20/2025 11:18 AM EDT Patient was discharged home without homecare. RN removed patient's peripheral IV prior to discharge. RN went over discharge instruction with patient and patient's family member. Patient did not have any questions/comments regarding discharge instructions. Patient left via hospital independent accompanied by his family member with his belongings. [facility] Work Phone: [phone]) 856-798304-03-2025 Plan of care note* Care Plan - Katya Yu RN - 02/20/2025 10:55 AM EDT The patient's goals for the shift include being discharged. The clinical goals for the shift include patient will remain HDS throughout this shift. Over the shift, the patient did make progress towards his goals, remained stable throughout the shift and was discharged home. [facility] Work Phone: [phone]) 232-575604-03-2025 Miscellaneous Notes* Care Plan - Katya Yu RN - 02/20/2025 10:55 AM EDT The patient's goals for the shift include being discharged. The clinical goals for the shift include patient will remain HDS throughout this shift. Over the shift, the patient did make progress towards his goals, remained stable throughout the shift and was discharged home. 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 Post-op CXR completed without evidence of pneumothorax. Diaphragm pacing education/setting adjustment was completed on POD 1. Upon discharge, pain was controlled, tolerating diet, OOB, and voiding without difficulty. He was discharged home with instructions provided by diaphragm pacing team. * Care Plan - Cassidy Norris RN - 02/20/2025 1:43 AM EDT The patient's goals for the shift include The clinical goals for the shift include maintain patient safety Problem: Pain Goal: Takes deep breaths with improved pain control throughout the shift Outcome: Progressing Goal: Turns in bed with improved pain control throughout the shift Outcome: Progressing Goal: Walks with improved pain control throughout the shift Outcome: Progressing Goal: Performs ADL's with improved pain control throughout shift Outcome: Progressing Goal: Participates in PT with improved pain control throughout the shift Outcome: Progressing Goal: Free from opioid side effects throughout the shift Outcome: Progressing Goal: Free from acute confusion related to pain meds throughout the shift Outcome: Progressing Problem: Pain Goal: Turns in bed with improved pain control throughout the shift Outcome: Progressing Problem: Pain Goal: Walks with improved pain control throughout the shift Outcome: Progressing Problem: Pain Goal: Performs ADL's with improved pain control throughout shift Outcome: Progressing Problem: Pain Goal: Participates in PT with improved pain control throughout the shift Outcome: Progressing Problem: Pain Goal: Free from opioid side effects throughout the shift Outcome: Progressing Problem: Pain Goal: Free from acute confusion related to pain meds throughout the shift Outcome: Progressing * Op Note - Elizabeth Santos MD - 02/19/2025 10:56 AM EDT INSERTION, DIAPHRAGMATIC PACEMAKER, LAPAROSCOPIC Operative Note Date: 02/19/2025 OR Location: [facility] OR Name: Bhavna Roca, : 1945, Age: 79 y.o., , Sex: male Diagnosis Pre-op Diagnosis * Diaphragm paralysis [J98.6] Post-op Diagnosis * Diaphragm paralysis [J98.6] Procedures INSERTION, DIAPHRAGMATIC PACEMAKER, LAPAROSCOPIC 46351 - ME OPEN IMPLANTATION ROBERTO NEUROMUSCULAR INSERTION, DIAPHRAGMATIC PACEMAKER, LAPAROSCOPIC 26363 - ME ELEC SANDY IMPLT NPGT CPLX SP/PN PRGRMG INSERTION, DIAPHRAGMATIC PACEMAKER, LAPAROSCOPIC 72801 - ME UNLISTED PROCEDURE DIAPHRAGM Surgeons * Elizabeth Santos - Primary Resident/Fellow/Other Robotics Technician: Surgeons and Role: * Roc Davis MD - Fellow Staff: Merchandiser: Wendy Scrub Person: Yary Merchandiser: Sally Alonso Scrub: Lm Relief Merchandiser: Pam Anesthesia Staff: Anesthesiologist: MD Priscila Shen-AA: LUIS Cai MELVIN: Yaminicassie Schuler Procedure Summary Anesthesia: General ASA: II Estimated Blood Loss: 15mL Intra-op Medications: Administrations occurring from 1005 to 1155 on 02/19/25: Medication Name Total Dose sodium chloride 0.9 % irrigation solution 2,000 mL BUPivacaine-EPINEPHrine (PF) (Marcaine w/EPI) 0.5 %-1:200,000 injection 14 mL albumin human bottle 5% 250 mL ceFAZolin (Ancef) vial 1 g 2 g dexAMETHasone (Decadron) injection 4 mg/mL 8 mg ePHEDrine injection 25 mg fentaNYL (Sublimaze) injection 50 mcg/mL 100 mcg glycopyrrolate (Robinul) injection 1 mg ketamine (Ketalar) 10 mg/mL injection 30 mg ketorolac (Toradol) 15 mg 15 mg LR bolus Cannot be calculated lidocaine (Xylocaine) injection 2 % 100 mg lidocaine (LTA Kit) for intubation 4 mL midazolam PF (Versed) injection 1 mg/mL 2 mg phenylephrine 40 mcg/mL syringe 10 mL 320 mcg propofol (Diprivan) injection 10 mg/mL 320 mg remifentanil (Ultiva) 1,000 mcg in sodium chloride 0.9% 50 mL (20 mcg/mL) infusion 0.49 mg Anesthesia Record Intraprocedure I/O Totals Intake Ketamine 0.00 mL The total shown is the total volume documented since Anesthesia Start was filed. LR bolus 800.00 mL Remifentanil Drip 0.00 mL The total shown is the total volume documented since Anesthesia Start was filed. Total Intake 800 mL Output Est. Blood Loss 5 mL Total Output 5 mL Net Net Volume 795 mL Specimen: No specimens collected Drains and/or Catheters: * None in log * Tourniquet Times: Implants: Implants Type Name Action Serial No. Implant KIT, PACING, DIAPHRAGM, SYNAPSE - [id number] - [id number] Implanted REVI Findings: The left elevated diaphragm was stimulatable Indications: Bhavna Roca is an 79 y.o. 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 The patient was seen in the preoperative area. The risks, benefits, complications, treatment options, non-operative alternatives, expected recovery and outcomes were discussed with the patient. The possibilities of reaction to medication, pulmonary aspiration, injury to surrounding structures, bleeding, recurrent infection, the need for additional procedures, failure to diagnose a condition, and creating a complication requiring transfusion or operation were discussed with the patient. The patient concurred with the proposed plan, giving informed consent. The site of surgery was properly noted/marked if necessary per policy. The patient has been actively warmed in preoperative area. Preopera tive antibiotics have been ordered and given within 1 hours of incision. Venous thrombosis prophylaxis have been ordered including bilateral sequential compression devices Procedure Details: The patient was brought to the operating room and general endotracheal anesthesia without paralytics was given. I prepped and draped his abdomen. Using a supraumbilical transverse incision and Mendoza technique I entered and insufflated his abdomen. I then placed a trocar in the left upper quadrant. Me to assess elevated left diaphragm. His diaphragm is very elevated. I was ableto get diffuse contractions of the elevated diaphragm. These were weak but it was diffuse showing that he did have a phrenic nerve that was intact they would benefit from diaphragm pacing to try to strengthen this diaphragm and improve the phrenic nerve function. He did have some lower abdominal adhesions. Instead of lysing these adhesions was mostly just omentum I just opened up the clear area of the falciform ligament above the liver. This allowed me to put a 12 mm trocar in the epigastric. Also laterally placed a trocar in the right upper quadrant. I then formally mapped his left diaphragmand placed 2 separate neuromuscular electrodes into his left diaphragm. I then turned my attention to his right diaphragm. His right diaphragm had diffuse much stronger contractions as expected was not his involved side. I then mapped this diaphragm placed 2 separate neuromuscular lectures into hisright diaphragm. Then brought the electrodes out to the epigastric port. I tunneled the electrodes to his right upper abdomen on maximal stimulation and no cardiac capture. I placed the anode in the subcutaneous tissue. I am checking his tidal volume was once I desufflated the abdomen he was able to get with both diaphragms together 450 cc. The right diaphragm on its own with the left diaphragm being. Actually going up we only went on the 350. His left diaphragm by itself really get 50 cc. We co uld tell them that by using both diaphragms will help improving his breath but preventing the paradoxical movement. His left diaphragm gets stronger in conjunction will start getting better tidal volumes. This point I did remove my trocars closed the fascial defect as umbilicus 0 Vicryl skin incision with 4-0 Vicryl. Patient was awoken from anesthesia in the recovery room he is awake I was able to do diaphragm EMG analysis I measured his EMG activity. He did have EMG activity in both sides apices left side was much smaller than his right side that was present again showing that he does have an intact nerve that we can help with. This device was then programmed to begin the rehabilitation ofhis diaphragm with multiple variables in the programming of that device. Complications: None; patient tolerated the procedure well. Disposition: PACU - hemodynamically stable. Condition: stable Attending Attestation: I was present and scrubbed for the entire procedure. Elizabeth Santos documented in this [facility] Work Phone: [phone]) 898-202504-03-2025 Hospital course Narrative* Julia Martínez APRN-ADVANCED PRACTICE PROVIDER - 02/20/2025 9:57 AM EDT Discharge Diagnosis Diaphragm paralysis Issues Requiring Follow-Up - S/p laparoscopic diaphragmatic pacemaker insertion Test Results Pending At Discharge Pending Labs No current pending labs. Hospital Course 79 year old male with h/o diaphragm dysfunction presented for elective laparoscopic diaphragmatic pacemaker insertion on 02/[address] Santos. Post-op CXR completed without evidence of pneumothorax. Diaphragm pacing education/setting adjustment was completed on POD 1. Upon discharge, pain was controlled, tolerating diet, OOB, and voiding without difficulty. He was discharged home with instructions provided by diaphragm pacing team. Pertinent Physical Exam At Time of Discharge Physical Exam Vitals reviewed. Constitutional: General: He is not in acute distress. Cardiovascular: Rate and Rhythm: Normal rate and regular rhythm. Pulmonary: Effort: Pulmonary effort is normal. No respiratory distress. Abdominal: General: There is no distension. Palpations: Abdomen is soft. Tenderness: There is no abdominal tenderness. Comments: Abdominal lap sites with steri-strips D/I, well approximated. Diaphragm pacing wires and box intact. Skin: General: Skin is warm and dry. Neurological: Mental Status: He is alert and oriented to person, place, and time. Psychiatric: Behavior: Behavior normal. Home Medications Medication List START taking these medications docusate sodium 100 mg capsule; Commonly known as: Colace; Take 1 capsule (100 mg) by mouth 2 times a day. To prevent constipation while taking narcotic pain medication oxyCODONE 5 mg immediate release tablet; Commonly known as: Roxicodone; Take 1 tablet (5 mg) by mouth every 6 hours if needed for severe pain (7 - 10). CONTINUE taking these medications amLODIPine 5 mg tablet; Commonly known as: Norvasc aspirin 81 mg EC tablet co-enzyme Q-10 50 mg capsule colchicine 0.6 mg tablet lisinopril 20 mg tablet magnesium oxide 400 mg (241.3 mg magnesium) tablet; Commonly known as: Mag-Ox multivitamin tablet RIBOFLAVIN (VITAMIN B2) ORAL sertraline 100 mg tablet; Commonly known as: Zoloft; Take 2 tablets (200 mg) by mouth once daily. simvastatin 40 mg tablet; Commonly known as: Zocor Outpatient Follow-Up No future appointments. SHERICE Giles documented in this [facility] Work Phone: 1(493) 215-336104-03-2025 History of Present illness Narrative* Jennifer Levine - 02/20/2025 9:24 AM EDT 02/20/25 6752 Discharge Planning Living Arrangements Spouse/significant other Support Systems Spouse/significant other Assistance Needed None Type of Residence Private residence Home or Post Acute Services None Expected Discharge Disposition Home Does the patient need discharge transport arranged? No Financial Resource Strain How hard is it for you to pay for the very basics like food, housing, medical care, and heating? Not very Housing Stability In the last 12 months, was there a time when you were not able to pay the mortgage or rent on time?N Transportation Needs In the past 12 months, has lack of transportation kept you from medical appointments or from getting medications? no DC Planning: Went in and met with the pt, confirmed demographics. Transitional Care Coordination Progress Note: Patient discussed during interdisciplinary rounds. Plan per Medical/Surgical team: Home Care choice for home going needs, [place] Home. No home going needs anticipated for this pt at this time. Discharge disposition: Home. No home going needs anticipated for this pt at this time. Potential Barriers: None ADOD: 02/20 This TCC will continue to follow for home going needs and safe DC plan. Jennifer Levine. MARSHALL. TCC. * Corrie Balderas - 02/18/2025 12:55 PM EDT Pharmacy Medication History Review Bhavna Roca is a 79 y.o. male who is planned to be admitted for Diaphragm paralysis. Pharmacy called the patient prior to their scheduled procedure and reviewed the patient's vazxn-yj-pvueepobm medications for accuracy. Medications ADDED: none Medications CHANGED: Sertraline 100mg directions from #2QD to #1QD Medications REMOVED: Acetazolamide 250mg Amitriptyline 25mg B complex+vit C Robitussin AC Aimovig Vitamin D Hydrochlorothiazide 12.5mg Meclizine 12.5mg Paxlovid Nortriptyline 25mg Prednisone 10mg Ramipril 10mg Kisqali Sutab Venlafaxine XR 27.5mg Please review updated prior to admission medication list and comments regarding how patient may be taking medications differently by going to Admission tab --> Admission Orders --> Admit Orders/ Review prior to admission medications. Preferred pharmacy, last doses of medications, and allergies to be confirmed with patient by nursing the day of procedure. 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 Patient states they are taking #1 tablet of sertraline 100mg once daily. L.F. 01/31/25 #60/30d. Prescription states #2QD Corrie Balderas [facility] Please reach out via Secure Chat for questions documented in this [facility] Work Phone: [phone]) 961-872904-03-2025 Hospital Discharge instructions* Discharge Instructions* SHERICE Giles - 02/20/2025 8:50 AM EDT Diaphragm Pacing Discharge Orders You have steri strips covering the incisions. You may shower today and these may get wet. Do not pick or peel them off. They will fall off on their own in 10-14 days. If they are still there in 2 weeks then it is OK to remove. Pacing Wires: Please keep the wire site clean and dry till well healed, about 2 weeks. You can cover this with something water proof while showering. If the wire site does get wet then remove t he dressing, clean wires and skin with alcohol, allow to dry then re-cover. You should try to keep the original dressing for 7 days. The you will need to clean the skin and wires with alcohol 3 times weekly or after each shower. Pacing: you have 2 pacing units. You will start using the pacer that was programmed for you to leave the hospital. You will wear it until you feel recovered from surgery, about 1 week. Then change tothe higher unit. If the higher unit bothers you, go back to the lower box wait a week and try again. We would like to see you after you have adjusted to the higher unit for 1 week. Please call the diaphragm pacing team to set up the appointment [phone]. If you wish to mail the box in instead of coming for post op visit - then follow instructions in the book. Be sure to include a note statingwho the box belongs to, what to do with it (increase, decrease power) and the address to return it. You should always keep the cable and box secure. documented in this [facility] Work Phone: [phone]) 634-738204-03-2025 Hospital Note* Hospital Course - SHERICE Giles - 02/20/2025 8:42 AM EDT 79 year old male with h/o diaphragm dysfunction presented for elective laparoscopic diaphragmatic pacemaker insertion on 02/[address] Santos. Post-op CXR completed without evidence of pneumothorax. Diaphragm pacing education/setting adjustment was completed on POD 1. Upon discharge, pain was controlled, tolerating diet, OOB, and voiding without difficulty. He was discharged home with instructions provided by diaphragm pacing team. [facility] Work Phone: [phone]) 490-572304-03-2025 Plan of care note* Care Plan - Cassidy Norris RN - 02/20/2025 1:43 AM EDT The patient's goals for the shift include The clinical goals for the shift include maintain patient safety Problem: Pain Goal: Takes deep breaths with improved pain control throughout the shift Outcome: Progressing Goal: Turns in bed with improved pain control throughout the shift Outcome: Progressing Goal: Walks with improved pain control throughout the shift Outcome: Progressing Goal: Performs ADL's with improved pain control throughout shift Outcome: Progressing Goal: Participates in PT with improved pain control throughout the shift Outcome: Progressing Goal: Free from opioid side effects throughout the shift Outcome: Progressing Goal: Free from acute confusion related to pain meds throughout the shift Outcome: Progressing Problem: Pain Goal: Turns in bed with improved pain control throughout the shift Outcome: Progressing Problem: Pain Goal: Walks with improved pain control throughout the shift Outcome: Progressing Problem: Pain Goal: Performs ADL's with improved pain control throughout shift Outcome: Progressing Problem: Pain Goal: Participates in PT with improved pain control throughout the shift Outcome: Progressing Problem: Pain Goal: Free from opioid side effects throughout the shift Outcome: Progressing Problem: Pain Goal: Free from acute confusion related to pain meds throughout the shift Outcome: Progressing [facility]04-02-2025 Surgery Surgical operation note* Op Note - Elizabeth Santos MD - 02/19/2025 10:56 AM EDT INSERTION, DIAPHRAGMATIC PACEMAKER, LAPAROSCOPIC Operative Note Date: 02/19/2025 OR Location: [facility] OR Name: Bhavna Roca, : 1945, Age: 79 y.o., , Sex: male Diagnosis Pre-op Diagnosis * Diaphragm paralysis [J98.6] Post-op Diagnosis * Diaphragm paralysis [J98.6] Procedures INSERTION, DIAPHRAGMATIC PACEMAKER, LAPAROSCOPIC 69962 - ME OPEN IMPLANTATION ROBERTO NEUROMUSCULAR INSERTION, DIAPHRAGMATIC PACEMAKER, LAPAROSCOPIC 69724 - ME ELEC SANDY IMPLT NPGT CPLX SP/PN PRGRMG INSERTION, DIAPHRAGMATIC PACEMAKER, LAPAROSCOPIC 21575 - ME UNLISTED PROCEDURE DIAPHRAGM Surgeons * Elizabeth Santos - Primary Resident/Fellow/Other Robotics Technician: Surgeons and Role: * Roc Davis MD - Fellow Staff: Merchandiser: Wendy Scrub Person: Yary Merchandiser: Sally Alonso Scrub: Lm Alonso Merchandiser: Pam Anesthesia Staff: Anesthesiologist: David Trivedi MD C-AA: LUIS Cai MELVIN: Yamini Schuler Procedure Summary Anesthesia: General ASA: II Estimated Blood Loss: 15mL Intra-op Medications: Administrations occurring from 1005 to 1155 on 02/19/25: Medication Name Total Dose sodium chloride 0.9 % irrigation solution 2,000 mL BUPivacaine-EPINEPHrine (PF) (Marcaine w/EPI) 0.5 %-1:200,000 injection 14 mL albumin human bottle 5% 250 mL ceFAZolin (Ancef) vial 1 g 2 g dexAMETHasone (Decadron) injection 4 mg/mL 8 mg ePHEDrine injection 25 mg fentaNYL (Sublimaze) injection 50 mcg/mL 100 mcg glycopyrrolate (Robinul) injection 1 mg ketamine (Ketalar) 10 mg/mL injection 30 mg ketorolac (Toradol) 15 mg 15 mg LR bolus Cannot be calculated lidocaine (Xylocaine) injection 2 % 100 mg lidocaine (LTA Kit) for intubation 4 mL midazolam PF (Versed) injection 1 mg/mL 2 mg phenylephrine 40 mcg/mL syringe 10 mL 320 mcg propofol (Diprivan) injection 10 mg/mL 320 mg remifentanil (Ultiva) 1,000 mcg in sodium chloride 0.9% 50 mL (20 mcg/mL) infusion 0.49 mg Anesthesia Record Intraprocedure I/O Totals Intake Ketamine 0.00 mL The total shown is the total volume documented since Anesthesia Start was filed. LR bolus 800.00 mL Remifentanil Drip 0.00 mL The total shown is the total volume documented since Anesthesia Start was filed. Total Intake 800 mL Output Est. Blood Loss 5 mL Total Output 5 mL Net Net Volume 795 mL Specimen: No specimens collected Drains and/or Catheters: * None in log * Tourniquet Times: Implants: Implants Type Name Action Serial No. Implant KIT, PACING, DIAPHRAGM, SYNAPSE - [id number] - [id number] Implanted RE Findings: The left elevated diaphragm was stimulatable Indications: Bhavna Roca is an 79 y.o. 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 The patient was seen in the preoperative area. The risks, benefits, complications, treatment options, non-operative alternatives, expected recovery and outcomes were discussed with the patient. The possibilities of reaction to medication, pulmonary aspiration, injury to surrounding structures, bleeding, recurrent infection, the need for additional procedures, failure to diagnose a condition, and creating a complication requiring transfusion or operation were discussed with the patient. The patient concurred with the proposed plan, giving informed consent. The site of surgery was properly noted/marked if necessary per policy. The patient has been actively warmed in preoperative area. Preopera tive antibiotics have been ordered and given within 1 hours of incision. Venous thrombosis prophylaxis have been ordered including bilateral sequential compression devices Procedure Details: The patient was brought to the operating room and general endotracheal anesthesia without paralytics was given. I prepped and draped his abdomen. Using a supraumbilical transverse incision and Mendoza technique I entered and insufflated his abdomen. I then placed a trocar in the left upper quadrant. Me to assess elevated left diaphragm. His diaphragm is very elevated. I was ableto get diffuse contractions of the elevated diaphragm. These were weak but it was diffuse showing that he did have a phrenic nerve that was intact they would benefit from diaphragm pacing to try to strengthen this diaphragm and improve the phrenic nerve function. He did have some lower abdominal adhesions. Instead of lysing these adhesions was mostly just omentum I just opened up the clear area of the falciform ligament above the liver. This allowed me to put a 12 mm trocar in the epigastric. Also laterally placed a trocar in the right upper quadrant. I then formally mapped his left diaphragmand placed 2 separate neuromuscular electrodes into his left diaphragm. I then turned my attention to his right diaphragm. His right diaphragm had diffuse much stronger contractions as expected was not his involved side. I then mapped this diaphragm placed 2 separate neuromuscular lectures into hisright diaphragm. Then brought the electrodes out to the epigastric port. I tunneled the electrodes to his right upper abdomen on maximal stimulation and no cardiac capture. I placed the anode in the subcutaneous tissue. I am checking his tidal volume was once I desufflated the abdomen he was able to get with both diaphragms together 450 cc. The right diaphragm on its own with the left diaphragm being. Actually going up we only went on the 350. His left diaphragm by itself really get 50 cc. We co uld tell them that by using both diaphragms will help improving his breath but preventing the paradoxical movement. His left diaphragm gets stronger in conjunction will start getting better tidal volumes. This point I did remove my trocars closed the fascial defect as umbilicus 0 Vicryl skin incision with 4-0 Vicryl. Patient was awoken from anesthesia in the recovery room he is awake I was able to do diaphragm EMG analysis I measured his EMG activity. He did have EMG activity in both sides apices left side was much smaller than his right side that was present again showing that he does have an intact nerve that we can help with. This device was then programmed to begin the rehabilitation ofhis diaphragm with multiple variables in the programming of that device. Complications: None; patient tolerated the procedure well. Disposition: PACU - hemodynamically stable. Condition: stable Attending Attestation: I was present and scrubbed for the entire procedure. Elizabeth Santos [facility] Work Phone: 1(300) 226-906704-02-2025 Attending History and physical note* Elizabeth Santos MD - 02/19/2025 8:06 AM EDT H&P reviewed. The patient was examined and there are no changes to the H&P. Discussed all risks and benefits of diaphragm pacing and possible plication. Source Note - Марина Moeller MANAGER EVENT-ADVANCED PRACTICE PROVIDER - 02/06/2025 9:30 AM EDT Subjective Patient ID: Bhavna Roca is a 79 y.o. male. HPI Summer 2023 - noted he was having some breathing issues- went to PCP. In Jul increased SOB - admitted for pericarditis. Then treated, no surgeries, DC then re-admitted again for same reason in August. Then DC and felt relatively fully recovered. He felt he was breathing normal even with walking, PT, exercise. He was in his usual state of normal breathing till Nov 12, 2024. It may have began a little worse. Daughter noted it was a sudden change - went to ER. In ER - he has VSS, Cardiology said - not cardiac. He did get PFT's. His FVC measured 67%. These were done sitting with bronchodilator. Results cameback while they were in [place]. Based on those that mikal stared on oxygen. He then got into lung MD who sent to us. Current symptoms: difficulty breathing - especially on exertion. Difficulty bending and breathing, The oxygen was started based on overnight pulse ox study done in [place]. He does have some issues with dizziness, positional since cochlear implants. He mainly needs to modify or move slowly. Review of Systems Current Meds: Lisinopril, simvastatin, sertraline, mag oxide, coq10, colchicine, amlodipine, aspirin, MVI, riboflavin Surgeries: lap carol - 10 yrs ago, cochlear implants, cervical spine surgeries - last about 15 years ago, Oxygen at night - started about 1 month ago. Objective Physical Exam Constitutional: Appearance: Normal appearance. Pulmonary: Comments: No increased effort at rest. Using wheel chair for distance not for mobility Musculoskeletal: General: Normal range of motion. Comments: He will have some vestibular dizzy spells - no weakness, no falss Skin: Capillary Refill: Capillary refill takes less than 2 seconds. Neurological: Mental Status: He is alert and oriented to person, place, and time. Psychiatric: Mood and Affect: Mood normal. Assessment/Plan There are no diagnoses linked to this encounter. 79 year old who came into today's appointment accompanied by his and daughter who is PCP at [facility]. He has relatively newer onset of shortness of breath - He did have CT and CXR done at [place] in Jul/aug and those have been requested. He had a normal diaphragm in 2019. Symptoms date to October 2024. He has a very elevated left HD and is quite symptomatic. Diaphragm Pacing in diaphragmdysfunction is meant to be used as physical therapy to improve diaphragm muscle strength and establish neural control of the diaphragm. We would only implant DP electrodes if at surgery we get response to stimulation. In those we do implant, we have 70% success rate of improvement with half having full cure. DP is low risk minimally invasive surgery. You would spend the night. I reviewed risks benefits of procedure. We will plan on February 19- there is blood work and EKG in epic. [facility] Work Phone: 1(102) 328-871504-02-2025 History and physical note* Elizabeth Santos MD - 02/19/2025 8:06 AM EDT H&P reviewed. The patient was examined and there are no changes to the H&P. Discussed all risks and benefits of diaphragm pacing and possible plication. Source Note - SHERICE Werner - 02/06/2025 9:30 AM EDT Subjective Patient ID: Bhavna Roca is a 79 y.o. male. HPI Summer 2023 - noted he was having some breathing issues- went to PCP. In Jul increased SOB - admitted for pericarditis. Then treated, no surgeries, DC then re-admitted again for same reason in August. Then DC and felt relatively fully recovered. He felt he was breathing normal even with walking, PT, exercise. He was in his usual state of normal breathing till Nov 12, 2024. It may have began a little worse. Daughter noted it was a sudden change - went to ER. In ER - he has VSS, Cardiology said - not cardiac. He did get PFT's. His FVC measured 67%. These were done sitting with bronchodilator. Results cameback while they were in [place]. Based on those that mikal stared on oxygen. He then got into lung MD who sent to us. Current symptoms: difficulty breathing - especially on exertion. Difficulty bending and breathing, The oxygen was started based on overnight pulse ox study done in [place]. He does have some issues with dizziness, positional since cochlear implants. He mainly needs to modify or move slowly. Review of Systems Current Meds: Lisinopril, simvastatin, sertraline, mag oxide, coq10, colchicine, amlodipine, aspirin, MVI, riboflavin Surgeries: lap carol - 10 yrs ago, cochlear implants, cervical spine surgeries - last about 15 years ago, Oxygen at night - started about 1 month ago. Objective Physical Exam Constitutional: Appearance: Normal appearance. Pulmonary: Comments: No increased effort at rest. Using wheel chair for distance not for mobility Musculoskeletal: General: Normal range of motion. Comments: He will have some vestibular dizzy spells - no weakness, no falss Skin: Capillary Refill: Capillary refill takes less than 2 seconds. Neurological: Mental Status: He is alert and oriented to person, place, and time. Psychiatric: Mood and Affect: Mood normal. Assessment/Plan There are no diagnoses linked to this encounter. 79 year old who came into today's appointment accompanied by his and daughter who is PCP at [facility]. He has relatively newer onset of shortness of breath - He did have CT and CXR done at [facility] in Jul/aug and those have been requested. He had a normal diaphragm in 2019. Symptoms date to October 2024. He has a very elevated left HD and is quite symptomatic. Diaphragm Pacing in diaphragmdysfunction is meant to be used as physical therapy to improve diaphragm muscle strength and establish neural control of the diaphragm. We would only implant DP electrodes if at surgery we get response to stimulation. In those we do implant, we have 70% success rate of improvement with half having full cure. DP is low risk minimally invasive surgery. You would spend the night. I reviewed risks benefits of procedure. We will plan on Monday, February 19- there is blood work and EKG in [facility]. [facility] Phone: 1([phone]) 104-681603-20-2025 History of Present illness Narrative* SHERICE Werner - 02/06/2025 9:30 AM EDT Subjective Patient ID: Bhavna Roca is a 79 y.o. male. HPI Summer 2023 - noted he was having some breathing issues- went to PCP. In Jul increased SOB - admitted for pericarditis. Then treated, no surgeries, DC then re-admitted again for same reason in August. Then DC and felt relatively fully recovered. He felt he was breathing normal even with walking, PT, exercise. He was in his usual state of normal breathing till Nov 12, 2024. It may have began a little worse. Daughter noted it was a sudden change - went to ER. In ER - he has VSS, Cardiology said - not cardiac. He did get PFT's. His FVC measured 67%. These were done sitting with bronchodilator. Results cameback while they were in [place]. Based on those that puleliz stared on oxygen. He then got into lung MD who sent to us. Current symptoms: difficulty breathing - especially on exertion. Difficulty bending and breathing, The oxygen was started based on overnight pulse ox study done in [place]. He does have some issues with dizziness, positional since cochlear implants. He mainly needs to modify or move slowly. Review of Systems Current Meds: Lisinopril, simvastatin, sertraline, mag oxide, coq10, colchicine, amlodipine, aspirin, MVI, riboflavin Surgeries: lap carol - 10 yrs ago, cochlear implants, cervical spine surgeries - last about 15 years ago, Oxygen at night - started about 1 month ago. Objective Physical Exam Constitutional: Appearance: Normal appearance. Pulmonary: Comments: No increased effort at rest. Using wheel chair for distance not for mobility Musculoskeletal: General: Normal range of motion. Comments: He will have some vestibular dizzy spells - no weakness, no falss Skin: Capillary Refill: Capillary refill takes less than 2 seconds. Neurological: Mental Status: He is alert and oriented to person, place, and time. Psychiatric: Mood and Affect: Mood normal. Assessment/Plan There are no diagnoses linked to this encounter. 79 year old who came into today's appointment accompanied by his and daughter who is PCP at [facility]. He has relatively newer onset of shortness of breath - He did have CT and CXR done at [facility] in Jul/aug and those have been requested. He had a normal diaphragm in 2019. Symptoms date to October 2024. He has a very elevated left HD and is quite symptomatic. Diaphragm Pacing in diaphragmdysfunction is meant to be used as physical therapy to improve diaphragm muscle strength and establish neural control of the diaphragm. We would only implant DP electrodes if at surgery we get response to stimulation. In those we do implant, we have 70% success rate of improvement with half having full cure. DP is low risk minimally invasive surgery. You would spend the night. I reviewed risks benefits of procedure. We will plan on February 19- there is blood work and EKG in [facility]. documented in this [facility] Work Phone: [phone]) 854-504403-11-2025 Radiology Diagnostic study note [facility] Imaging Services [address] [address] Fluoroscopy 1 Hr or Less MR#: [id number] Acct: [id number] Name: BHAVNA ROCA Rep #: [id number] : 1945 M 79 From: Mason Sarkar MD PCP: Dr. Alfredo Vasquez MD Status: REG C MIRI Study:Fluoroscopy 1 Hr or Less Date of Exam: 01/28/25 Exam# [id number] Ordering Dr: Lm Hill MD PROCEDURE: FLUOROSCOPY 1 HR OR LESS REASON FOR EXAM: Possible left diaphragmatic paralysis. TECHNIQUE: Standing AP view(s) of the thoracic and lumbar spine. COMPARISON: None. FINDINGS: There is elevation of the left hemidiaphragm. Limited movement of the left hemidiaphragm during expiration and inspiration maneuvers. Disc space narrowing and spondylosis of the dorsal spine. RAD/Fluoroscopy 1 Hr or Less IMPRESSION: Elevation of the left hemidiaphragm with limited movement during inspiration expiration. Reading Location: [facility] CC: Dr. Alfredo Vasquez MD; Dr. Lm Hill MD ~ Tire Builder Operator: Signed [facility]03-05-2025 Radiology Diagnostic study note [facility] Imaging Services [address] [place], [place] [id number] Chest PA and Lateral MR#: [id number] Acct: [id number] Name: BHAVNA ROCA Rep #: [id number] : 1945 M 79 From: Jason [facility] MD PCP: Dr. Alfredo Vasquez MD Status: REG C LI Study:Chest PA and Lateral Date of Exam: 01/22/25 Exam# [id number] Ordering Dr: Lm Hill MD PROCEDURE: CHEST PA AND LATERAL REASON FOR EXAM: Shortness of breath and wheezing. TECHNIQUE: Frontal and lateral views of the chest. COMPARISON: Chest x-ray of 11/06/2024 RAD/Chest PA and Lateral IMPRESSION: Partially visualized lower cervical surgery again noted. Moderate left hemidiaphragm elevation is seen, with mild adjacent left basilar atelectasis. Lungs otherwise appear clear of acute disease. No pleural effusion or pneumothorax is noted. The cardiomediastinal silhouette is stable, without evidence of cardiomegaly. 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 Reading Location: [address] CC: Dr. Alfredo Vasquez MD; Dr. Lm Hill MD ~ Tire Builder Operator: Signed [facility]12-20-2024 Evaluation note* Diagnosis Onset Date Resolution Status Admit Date Coronary artery disease acute D ec2023 8:09am Hypercholesterolemia acute Dece mber 2023 8:09am Pericardial effusion without cardiac tamponade acute November 08, 2024 8:09am Pericarditis acute October 8:09am Shortness of breath acute Decem jarrod 2023 8:09am Hypertension chronic October 8:09am [facility] Work Phone: [phone]) 368-499712-10-2024 History of Present illness Narrative* Corrie Riley MD - 10/29/2024 2:45 PM EST History Of Present Illness: Bhavna Roca is a 79 y.o. male who is a former patient of Dr. Dias with a history of bilateralcochlear implantation, most recently in 2009. 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 At the patient's last visit, I restarted the patienton sertraline due to seeing improvement while taking the medication. I also provided the patient with a referral to vestibular PT which the patient did not complete. The patient reports he was in the hospital from July to August due to having fluid around hisheart. During this time, he has to discontinue use of sertraline for 5-6 days and started to experience dizziness. He also discovered that aspartame is a trigger for him. Other than that, he reports his symptoms have improved while taking sertraline 150 mg tablets however would like to see if the dose can be increased to 200 mg. Recall 07/30/24: Bhavna Roca is a 79 y.o. male who is a former patient of Devon Dias. He has a history of bilateral cochlear implantation, most recently in 2009. 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 He has been previously seen and evaluated by me. He has had a VNG from the [facility], which suggests significant right-sided vestibulopathy. A subsequent VNG here shows a significant right-sided weakness, but functional left-sided vestibular system. While MRI and CT are unavailable, reportedly the CT demonstrated right canal plugging. The MRI in the past was reportedly negative for any evidence of retrocochlear pathology. More recently, he was started on migraine therapy with nortriptyline approximately 1 year ago. He reports that hehad significant improvement in his disequilibrium and balance with the nortriptyline. However, he reports that in the past several months he feels that his equilibrium is worse again. He reports thathe has daily disequilibrium, which is worse with sudden movements and with bumps in the car. He denies difficulty with visual symptoms or complex patterns. He denies any significant headache component. He does have significant difficulty walking in the dark. However, he does not report any oscillopsia. He also has peripheral neuropathy and has a history of retinal issues. Surgical History: He has a past surgical history that includes Other surgical history (04/03/2018). Allergies: Metoprolol succinate and Topiramate Medications: Current Outpatient Medications Medication Instructions acetaZOLAMIDE (Diamox) 250 mg tablet Take by mouth. Aimovig Autoinjector 140 mg/mL injection amitriptyline (ELAVIL) 25 mg, Nightly aspirin 81 mg EC tablet Daily RT b complex-vitamin c tablet 1 tablet, Daily before breakfast cholecalciferol (VITAMIN D-3) 10 mcg (400 unit) tablet Take by mouth. co-enzyme Q-10 200 mg, Daily RT codeine-guaifenesin (Robitussin-AC) 10-100 mg/5 mL syrup take 10 milliliters (2 TEASPOONFULS) by mouth every 4 hours if needed for cough hydroCHLOROthiazide (MICROZIDE) 12.5 mg, Daily RT lisinopril 20 mg, Daily magnesium oxide (MAG-OX) 400 mg, Daily RT meclizine (ANTIVERT) 12.5 mg, 3 times daily PRN multivitamin tablet 1 tablet, Daily RT nortriptyline (PAMELOR) 75 mg, Nightly Paxlovid 300 mg (150 mg x 2)-100 mg tablet therapy pack take 2 NIRMATRELVIR tablets with 1 RITONAVIR tablet twice a day for 5 days predniSONE (Deltasone) 10 mg tablet Take by mouth four (4) tabs x3 days; then three (3) tabs x3days; then two (2) tabs x3 days; then one (1) tab a day x3 days ramipril (ALTACE) 10 mg, Daily RT ribociclib (KISQALI) 200 mg, Daily RIBOFLAVIN, VITAMIN B2, ORAL Take by mouth. sertraline (ZOLOFT) 100 mg, oral, Daily, TAKE 0.5 TABLETS (50MG) X 1 WEEK, THEN TAKE 1 TABLET (100MG) X 1 WEEK sertraline (ZOLOFT) 150 mg, oral, Daily simvastatin (ZOCOR) 40 mg, Daily Sutab 1.479-0.188- 0.225 gram tablet venlafaxine XR (Effexor-XR) 37.5 mg 24 hr capsule Take by mouth. Review of Systems: A comprehensive 10-point review of systems was obtained including constitutional, neurological, HEENT, pulmonary, cardiovascular, genito-urinary, and other pertinent systems and was negative except as noted in the HPI. Physical Exam: Constitutional General appearance: Healthy-appearing, well-nourished, well groomed, in no acute distress. Ability to communicate: Normal communication without aids, normal voice quality. Head and face: Atraumatic with no masses, lesions, or scarring. Facial strength: Normal strength and symmetry, no synkinesis or facial tic. Ears Otoscopic examination: Bilateral normal otoscopy of the tympanic membrane Nose: Dorsum symmetric with no visible or palpable deformities. Oral Cavity/Mouth Lips, teeth, and gums: Normal lips, gums, and dentition. Oropharynx: Mucosa moist, no lesions. Neck: Symmetrical, trachea midline. No masses visible. Neurological/Psychiatric Cranial Nerve Examination: II - XII grossly intact. Orientation to person, place, and time: Normal. Mood and affect: Normal. Skin: Normal without rashes or lesions. Pulmonary Respiratory effort: Chest expands symmetrically. Cardiovascular: Good peripheral pulses Peripheral vascular system: No varicosities, carotid pulse normal, no edema. No jugular venous distension. Extremities: Appearance of extremities: Normal. Gait normal. Last Recorded Vitals: There were no vitals taken for this visit. Assessment/Plan 79 y.o. male who is a former patient of Dr. Dias with a history of bilateral cochlear implantation, most recently in 2009. 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 Patient reports his symptoms have improved while taking sertraline 150 mg tablets however would like to see if the dose can be increased to 200 mg. I discussed with the patient that I do not typically prescribe these types of medications and I would feel more comfortable having the medication managed by his PCP. I will send a prescription for this to the patient's pharmacy and will have the patient follow-up with his PCP for further management in this medication. I will also provide the patient with a referral to vestibular PT to be completed in [place] at the patient will be leaving in the upcoming weeks. The patient will follow-up with me in 6 months. - Prescription for sertraline 200 mg tablets sent to the patient's pharmacy, recommend following with PCP for possible side effects at this dose. - Referral to vestibular PT - Follow-up with PCP for sertraline management - RTC in 6 months Scribe Attestation By signing my name below, Suellen Nino, Melisa attest that this documentation has been prepared under the direction and in the presence of Corrie White MD. I have reviewed the documentation as scribed by Rakesh Simms and agree with the notes. Corrie Riley MD documented in this [facility] Work Phone: 1(728) 993-894209-19-2024 [facility]09-16-2024 [facility]09-10-2024 History of Present illness Narrative* Corrie Riley MD - 07/30/2024 11:00 AM EDT History Of Present Illness: Bhavna Roca is a 79 y.o. male who is a former patient of Devon Dias. He has a history of bilateral cochlear implantation, most recently in 2009. 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 He has been previously seen and evaluated by me. He has had a VNG from the [facility], which suggests significant right-sided vestibulopathy. A subsequent VNG here shows a significant right-sided weakness, but functional left-sided vestibular system. While MRI and CT are unavailable, reportedly the CT demonstrated right canal plugging. The MRI in the past was reportedly negative for any evidence of retrocochlear pathology. More recently, he was started on migraine therapy with nortriptyline approximately 1 year ago. He reports that hehad significant improvement in his disequilibrium and balance with the nortriptyline. However, he reports that in the past several months he feels that his equilibrium is worse again. He reports thathe has daily disequilibrium, which is worse with sudden movements and with bumps in the car. He denies difficulty with visual symptoms or complex patterns. He denies any significant headache component. He does have significant difficulty walking in the dark. However, he does not report any oscillopsia. He also has peripheral neuropathy and has a history of retinal issues. Past Medical History: He has a past medical history of Internal hemorrhoids (09/15/2008), Personal history of other diseases of the circulatory system, Personal history of other diseases of the nervous system and sense organs, and Personal history of other endocrine, nutritional and metabolic disease. Surgical History: He has a past surgical history that includes Other surgical history (04/03/2018). Social History: He reports that he has never smoked. He has quit using smokeless tobacco. His smokeless tobacco useincluded chew. He reports that he does not drink alcohol and does not use drugs. Family History: No family history on file. Medications: Current Outpatient Medications Medication Instructions acetaZOLAMIDE (Diamox) 250 mg tablet oral Aimovig Autoinjector 140 mg/mL injection amitriptyline (ELAVIL) 25 mg, oral, Nightly aspirin 81 mg EC tablet oral, Daily RT b complex-vitamin c tablet 1 tablet, oral, Daily before breakfast cholecalciferol (VITAMIN D-3) 10 mcg (400 unit) tablet oral co-enzyme Q-10 200 mg, oral, Daily RT codeine-guaifenesin (Robitussin-AC) 10-100 mg/5 mL syrup take 10 milliliters (2 TEASPOONFULS) by mouth every 4 hours if needed for cough hydroCHLOROthiazide (MICROZIDE) 12.5 mg, oral, Daily RT lisinopril 20 mg, oral, Daily magnesium oxide (MAG-OX) 400 mg, oral, Daily RT meclizine (ANTIVERT) 12.5 mg, oral, 3 times daily PRN multivitamin tablet 1 tablet, oral, Daily RT nortriptyline (PAMELOR) 75 mg, oral, Nightly Paxlovid 300 mg (150 mg x 2)-100 mg tablet therapy pack take 2 NIRMATRELVIR tablets with 1 RITONAVIR tablet twice a day for 5 days predniSONE (Deltasone) 10 mg tablet Take by mouth four (4) tabs x3 days; then three (3) tabs x3days; then two (2) tabs x3 days; then one (1) tab a day x3 days ramipril (ALTACE) 10 mg, oral, Daily RT ribociclib (KISQALI) 200 mg, oral, Daily, Take 1 tablet (200 mg) by mouth in the morning for 21 days, followed by 7 days off per 28-day treatment cycle. RIBOFLAVIN, VITAMIN B2, ORAL oral sertraline (ZOLOFT) 150 mg, oral, Daily sertraline (ZOLOFT) 150 mg, oral, Daily simvastatin (ZOCOR) 40 mg, oral, Daily Sutab 1.479-0.188- 0.225 gram tablet venlafaxine XR (Effexor-XR) 37.5 mg 24 hr capsule oral Allergies: Metoprolol succinate and Topiramate Review of Systems: A comprehensive 10-point review of systems was obtained including constitutional, neurological, HEENT, pulmonary, cardiovascular, genito-urinary, and other pertinent systems and was negative except as noted in the HPI. Physical Exam: Constitutional General appearance: Healthy-appearing, well-nourished, well groomed, in no acute distress. Ability to communicate: Normal communication without aids, normal voice quality. Head and face: Atraumatic with no masses, lesions, or scarring. Facial strength: Normal strength and symmetry, no synkinesis or facial tic. Ears Otoscopic examination: Bilateral normal otoscopy of the tympanic membrane Nose: Dorsum symmetric with no visible or palpable deformities. Oral Cavity/Mouth Lips, teeth, and gums: Normal lips, gums, and dentition. Oropharynx: Mucosa moist, no lesions. Neck: Symmetrical, trachea midline. No masses visible. Neurological/Psychiatric Cranial Nerve Examination: II - XII grossly intact. Orientation to person, place, and time: Normal. Mood and affect: Normal. Skin: Normal without rashes or lesions. Pulmonary Respiratory effort: Chest expands symmetrically. Cardiovascular: Good peripheral pulses Peripheral vascular system: No varicosities, carotid pulse normal, no edema. No jugular venous distension. Extremities: Appearance of extremities: Normal. Gait normal. Last Recorded Vitals: Temperature 36.4 C (97.6 F), height 1.854 m (6' 1), weight 104 kg (229 lb 6.4 oz). Assessment/Plan 79 y.o. male who is a former patient of Devon Dias. He has a history of bilateral cochlear implantation, most recently in 2009. 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 He was started on migraine therapy with nortriptyline approximately 1 year ago. He reports that he had significant improvement in his disequilibrium and balance with the nortriptyline. However, he reports that in the past several months he feels that his equilibriumis worse again. He denies any significant headache component. He does have significant difficulty walking in the dark. However, he does not report any oscillopsia. He also has peripheral neuropathy and has a history of retinal issues. We will restart him on sertraline since he saw improvement while taking the medication. I recommendthat he starts with 50 mg for one week, then go to 100 mg of sertraline for one week, and finally use 150 mg of sertraline. We will also have him follow-up with audiology for cochlear implant testing. We will also provide him with a referral to vestibular PT. We discussed this is a chronic condition and he will need to do vestibular exercises regularly to help manage his symptoms. He will follow-up in 3 months. -Prescription for sertraline 50 mg sent to the patient's pharmacy -Follow-up with audiology for cochlear implant testing -Referral to vestibular PT -RTC in 3 months Scribe Attestation By signing my name below, I, Suellen Simms, Melisa attest that this documentation has been prepared under the direction and in the presence of Corrie White MD. I have reviewed the documentation as scribed by Rakesh Simms and agree with the notes. Corrie Riley MD documented in this [facility] Work Phone: [phone]) 658-893409-10-2024 Instructions* Patient Instructions* Suellen Ledezma RN - 07/30/2024 11:00 AM EDT Images from the original note were not included. Welcome to Dr. Riley's clinic. We are here to assist you through your ENT care at [facility]. Dr. Riley is an Ear surgeon. This means that she specializes in taking care of patients with complex ear problems. Dr. Riley's office number is [phone]. While you may see her at a satellite office, she has a team committed to help meet your healthcare needs at [facility]'s main campus. This number is the most direct way to communicate with the office. Anna is Dr. Riley's medical records secretary and she answers the office phone from 8am-4pm Mon-Fri. She can help you with many general questions and information. Questions that she cannot answer will be directed to the appropriate staff. You may need to leave a message. In this case, someone from the team will call you back. Rakesh Ledezma RN, is Dr. Riley's primary nurse and can be reached by calling the office. Rakesh is in clinic with Dr. Riley's on Mondays and Tuesdays. Non-urgent calls will be returned on non-clinic days typically . Sometimes, other team members will also be involved in your care. These people may include dieticians, social workers, speech therapists, bleach analyst, neurologist, and physical therapist. Dr. Riley will provide these referrals as needed. Please let her know if you would like to request a specific referral. For your convenience, Dr. Riley sees patients at several [facility] locations including [facility] and [facility] at the main campus [facility]. While we try tomake your appointments as convenient as possible, occasionally a visit to another location may be ne cessary to provide the best care for you. We look forward to working with you to meet your healthcare goals. Dr. Riley makes every effort to run on time for your appointments. Therefore, if you are more than 30 minutes late unrelated to a scan or another appointment such therapy or audio you will have to reschedule. MIGRAINE / HYPERSENSITIVITY DIET BREAD Acceptable purchases: Any white, wheat, rye or pumpernickel store-bought bread. Plain or sesame seed bagels, Ukrainian muffins, quick breads like pumpernickel or zucchini breads. All yeast bread must be 24 hours old. What to avoid: Fresh baked bread, either homemade or from the grocer's bakery, fresh donuts, fresh breakfast Kenyan, nut breads, cheese bread, chocolate bread, raisin bread, bagels with dried fruit like blueberry or cranberry bagels. Remember that pizza is fresh bread. CEREAL Acceptable purchases: Many cereals are fine. For example: Cheerios, Life, Honey Bunches of Oats, Cracklin' Bran, Frosted Flakes, Frosted Shredded Wheat. What to avoid: Cereal with nuts, raisins, chocolate, dried fruit, aspartame, peanut butter or coconut. CRACKERS Acceptable purchases: Any unflavored cracker such as Saltines, Ritz, Wheat thins, Ngo's Table Crackers and Club crackers. What to avoid: Cheddar cheese crackers, Xkesi-vx-t-bisket, any flavored cracker. PRETZELS/CHIPS Acceptable purchases: All plain pretzels and plain potato chips, Tostitos 100% corn chips, Frito's corn chips, Red's salt and vinegar chips. What to avoid: Soft pretzels, honey and mustard pretzels, onion and garlic pretzels or other seasoned pretzels. Avoid Pringles, Doritos Art chips, jalapeno chips and most other seasoned chips. PIES/CAKES/COOKIES/CANDY Acceptable purchases: Uguru and apple store bought pies if made without lemon juice, vanilla orcinnamon swirl cake, shortbread cookies and vanilla/strawberry wafers, oatmeal cookies without the raisins, rice pudding (no raisins), white chocolate. What to avoid: Chocolate, chocolate candy, nuts, buttermilk, sour cream, dried fruit (some apricot pies start with dried apricots), peanut butter, lemon extract or lemon juice, almond extract and coconut. Avoid diet and sugar-free products that contain aspartame. SALAD DRESSING Acceptable purchases: Any oil and distilled white vinegar. (Homemade ranch is good but you won't find that in the grocery store). What to avoid: most bottled dressings have one or many of the following; monosodium glutamate, onion or onion powder, grated cheese like Driscoll or parmesan, natural flavoring, red wine vinegar or balsamic vinegar (or anything other than white). DIPS/SAUCES Acceptable purchases: buy ingredients to make your own at home. What to avoid: dips and sauces usually contain MSG (natural flavoring) or onions. Avoid salsa, chips dips, tomato sauce like Ragu, audrey or pesto sauce, gravy, mustard dips, barbeque sauce and guacamole (because of the avocados). MEAT AND MAIN MEALS Acceptable purchases: Fresh chicken, beef, veal, borrego, fish, turkey or pork. (Some sausage is made without MSG, natural flavor or onion). Be sure the meat is not injected with a tenderizer (like All's Simple Tender pork products) or with broth (some turkey and chicken). What to avoid: Beef liver and chicken liver, marinated meat, ready-made hot wings, barbeque chicken, breaded meat like fried chicken or nuggets or breaded chicken patties, seasoned rotisserie chicken, and any ready-made meal of meat, noodle or rice like burritos, lasagna, Rice-a-Linus and Hamburger [place]. Any canned tuna with broth. Anchovies. Spam. Canned soups have MSG and sometimes onions. Avoid nitrites in ham, hot dogs and most lunchmeats. DAIRY PRODUCTS Acceptable purchases: Deli Zimbabwean cheese, Zimbabwean cheese with jalapeno peppers, cottage cheese, ricotta cheese and cream cheese. White milk is ok. What to avoid: Aged cheeses like Cheddar, Taliaferro Nicola, Simone and Beninese. Avoid mozzarella cheese, Brie, sour cream buttermilk and yogurt. Beware of products made with cheese like pizza and hot pockets. Avoid chocolate milk due to the caffeine. FRUITS/JUICES Acceptable purchases: Fresh strawberries, apples, pears, grapes, peaches, nectarines, blueberries, kiwi, apricots, blackberries, cherries, cantaloupes, mangoes, honeydew melon and watermelon. What to avoid: Bananas, oranges, grapefruit, ayaan, limes, tangerines, pineapples, Clementines, raspberries, plums, papayas, passion fruit, figs, dates, raisins and avocados. Also avoid dried fruitspreserved with sulfites. VEGETABLES Acceptable purchases: Preservative-free bagged lettuce like Fresh Express, peppers, zucchini, eggplant, garlic, leeks, spring onions, shallots, potatoes (fresh), some frozen mashed potatoes, broccoli, asparagus, cauliflower, [place]' sprouts, carrots, corn, chick peas, mushrooms, canned or frozen peas, yams, string beans, artichokes, red beets, some beans, okra, plain rice, turnips and squash. What to avoid: Onions, sauerkraut, pea pods, broad Somali beans, monteiro beans, ion beans, navy beans and lentils. Also avoid boxed potato flakes, like instant mashed potatoes. DRINKS Acceptable purchases: Naturally decaffeinated coffee or tea, caffeine-free herb tea like chamomile,pear juice, apple juice, grape juice, cranberry juice, apricot nectar, caffeine-free Coke/Pepsi, Diet Rite Cola, Waist Watcher Cola/Diet Rootbeer/Diet Black Anderson, Mug Rootbeer, Hires Rootbeer and A&W Rootbeer. Diet soda using sucralose (Splenda) is not a problem. Vodka is the best tolerated alcoholic beverage. White milk is ok. What to avoid: Coffee, tea, coffee substitutes, hot chocolate, guerda, orange soda, lemon [place] tribe soda,mountain Dew, any diet soda containing aspartame or saccharin, Barq's Rootbeer, (they add caffeine to it), chocolate milk, wine, champagne, beer, heavy alcoholic drinks. NUTS/SEEDS/POPCORN Acceptable purchases: Unflavored popcorn that you pop at home, pumpkins seeds, sunflower seeds without natural flavor, sesame seeds and poppy seeds. What to avoid: Cheddar cheese popcorn, some microwave popcorn, all nuts and nut butters, including peanuts. Coconut is out as well as almond extract. SOY PRODUCTS: Acceptable purchases: Any soy is questionable, so you might want to avoid it altogether until you have achieved headache control. Then try the following products one at a time: soy milk, soy flour, plain tofu and soy oil. What to avoid: Soy sauce, miso, tempeh, soy burgers, products containing soy protein isolate or concentrate and soy beans. documented in this [facility] Work Phone: [phone] History of Present illness Narrative* Devon Dias MD - 06/06/2024 11:00 AM EDT CHIEF COMPLAINT: Chief Complaint Patient presents with Follow-up History of present illness from 03/17/2023: Bhanva Roca is a 77-year-old man who presents today with significant disequilibrium. He has a history of bilateral cochlear implantation, most recently in 2009. 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 He has been previously seen and tesha luated by Dr. Riley. He has had a VNG from the [facility], which suggests significant right-sided vestibulopathy. A subsequent VNG here shows a significant right-sided weakness, but functional left-sided vestibular system. While MRI and CT are unavailable, reportedly the CT demonstrated rightcanal plugging. The MRI in the past was reportedly negative for any evidence of retrocochlear pathology. More recently, he was started on migraine therapy with nortriptyline approximately 1 year ago.He reports that he had significant improvement in his disequilibrium and balance with the nortriptyline. However, he reports that in the past several months he feels that his equilibrium is worse again. He reports that he has daily disequilibrium, which is worse with sudden movements and with bumpsin the car. He denies difficulty with visual symptoms or complex patterns. He denies any significant headache component. He does have significant difficulty walking in the dark. However, he does not r eport any oscillopsia. He also has peripheral neuropathy and has a history of retinal issues. Interval History from 05/12/2023: He reports persistent symptoms. He reports daily dizziness that is worsened with complex visual patterns and movements. Interval History 07/27/2023: He reports that he has been switched from nortryptilene to amytryptilenein the interim, with significant worsening in his symptoms. He still has daily dizziness that is worsened with complex visual patterns. He went back to vestibular therapy, who did not see any significant improvement from his last session. Interval History 08/31/2023: At his last visit, we stopped his nortryptilene and started sertraline. He reported that he had some improvement in symptoms, but then seems to have worsened for the past2 weeks. He feels that he is not worse than he was on the nortrypilene or the amytryptilene. He denies side effects. Interval history from 10/26/2023: He reports significant improvement in his symptoms since he has been on 50 mg of the sertraline. He denies significant side effects. Interval History from 03/01/2024: He reports some improvement with his increased dose, but he reports persistent dizziness. He would like to try an increased dose. Interval History: He reports that his dizziness is worse. He is not sure if the medications have helped his dizziness at all. He reports dizziness with head movements and worse at night. PAST MEDICAL HISTORY: Past Medical History: Diagnosis Date Internal hemorrhoids 09/15/2008 Personal history of other diseases of the circulatory system History of hypertension Personal history of other diseases of the nervous system and sense organs History of cataract Personal history of other endocrine, nutritional and metabolic disease History of high cholesterol PAST SURGICAL HISTORY: Past Surgical History: Procedure Laterality Date OTHER SURGICAL HISTORY 04/03/2018 Cochlear Implant MEDICATIONS: Current Outpatient Medications: aspirin 81 mg EC tablet, Take by mouth once daily., Disp: , Rfl: co-enzyme Q-10 50 mg capsule, Take 4 capsules (200 mg) by mouth once daily., Disp: , Rfl: lisinopril 20 mg tablet, Take 1 tablet (20 mg) by mouth once daily., Disp: , Rfl: magnesium oxide (Mag-Ox) 400 mg (241.3 mg magnesium) tablet, Take 1 tablet (400 mg) by mouth once daily., Disp: , Rfl: meclizine (Antivert) 12.5 mg tablet, Take 1 tablet (12.5 mg) by mouth 3 times a day as needed for dizziness., Disp: , Rfl: multivitamin tablet, Take 1 tablet by mouth once daily., Disp: , Rfl: RIBOFLAVIN, VITAMIN B2, ORAL, Take by mouth., Disp: , Rfl: simvastatin (Zocor) 40 mg tablet, Take 1 tablet (40 mg) by mouth once daily., Disp: , Rfl: acetaZOLAMIDE (Diamox) 250 mg tablet, Take by mouth., Disp: , Rfl: Aimovig Autoinjector 140 mg/mL injection, , Disp: , Rfl: amitriptyline (Elavil) 25 mg tablet, Take 1 tablet (25 mg) by mouth once daily at bedtime., Disp: ,Rfl: b complex-vitamin c tablet, Take 1 tablet by mouth once daily in the morning. Take before meals., Disp: , Rfl: cholecalciferol (VITAMIN D-3) 10 mcg (400 unit) tablet, Take by mouth., Disp: , Rfl: codeine-guaifenesin (Robitussin-AC) 10-100 mg/5 mL syrup, take 10 milliliters (2 TEASPOONFULS) by mouth every 4 hours if needed for cough, Disp: , Rfl: hydroCHLOROthiazide (HYDRODiuril) 12.5 mg tablet, Take 1 tablet (12.5 mg) by mouth once daily., Disp: , Rfl: nortriptyline (Pamelor) 25 mg capsule, Take 3 capsules (75 mg) by mouth once daily at bedtime., Disp: , Rfl: Paxlovid 300 mg (150 mg x 2)-100 mg tablet therapy pack, take 2 NIRMATRELVIR tablets with 1 RITONAVIR tablet twice a day for 5 days, Disp: , Rfl: predniSONE (Deltasone) 10 mg tablet, Take by mouth four (4) tabs x3 days; then three (3) tabs x3days; then two (2) tabs x3 days; then one (1) tab a day x3 days, Disp: , Rfl: ramipril (Altace) 10 mg capsule, Take 1 capsule (10 mg) by mouth once daily., Disp: , Rfl: ribociclib (Kisqali) 200 mg tablet therapy pack, Take 1 tablet (200 mg total) by mouth once daily. Take 1 tablet (200 mg) by mouth in the morning for 21 days, followed by 7 days off per 28-day treatment cycle., Disp: , Rfl: sertraline (Zoloft) 100 mg tablet, Take 1.5 tablets (150 mg) by mouth once daily., Disp: 45 tablet,Rfl: 1 sertraline (Zoloft) 100 mg tablet, Take 1.5 tablets (150 mg) by mouth once daily., Disp: 45 tablet,Rfl: 2 Sutab 1.479-0.188- 0.225 gram tablet, , Disp: , Rfl: venlafaxine XR (Effexor-XR) 37.5 mg 24 hr capsule, Take by mouth., Disp: , Rfl: ALLERGIES: Allergies Allergen Reactions Metoprolol Succinate Dizziness Didn't help dizziness/headaches Topiramate Other Brain fog SOCIAL HISTORY: reports that he has never smoked. His smokeless tobacco use includes chew. He reports that he does not drink alcohol and does not use drugs. PHYSICAL EXAM: VITALS: Vitals: 06/06/24 1110 BP: 126/73 Pulse: 66 Resp: 20 Temp: 36.7 C (98 F) TempSrc: Temporal SpO2: 97% Weight: 104 kg (228 lb 8 oz) Height: 1.854 m (6' 1) Physical Examination: CONSTITUTIONAL: No acute distress VOICE: No hoarseness or other abnormality RESPIRATION: Breathing comfortably, no stridor CV: No clubbing/cyanosis/edema in hands EYES: EOM intact, sclera clear NEURO: Alert and oriented times 3, Cranial nerves II-XII grossly intact and symmetric bilaterally HEAD AND FACE: Symmetric facial features, no masses or lesions SALIVARY GLANDS: Parotid and submandibular glands normal bilaterally RIGHT EAR: Normal external ear and post auricular area, no visible lesions, external auditory canalpatent, tympanic membrane intact, no retraction, no signs of mass, effusion, or infection within the middle ear LEFT EAR: Normal external ear and post auricular area, no visible lesions, external auditory canal patent, tympanic membrane intact, no retraction, no signs of mass, effusion, or infection within themiddle ear NOSE: External nose midline, ORAL CAVITY/OROPHARYNX/LIPS: Normal mucous membranes, normal floor of mouth/tongue/OP, no masses orlesions PHARYNGEAL LEAHY: No masses or lesions NECK/LYMPH: No LAD, no thyroid masses, trachea midline SKIN: Neck and facial skin is without scar or injury PSYCH: Alert and oriented with appropriate mood and affect DATA REVIEWED: I reviewed the patient's prior VNG, which demonstrates a right-sided peripheral weakness. VNG: Right warm: 18 degrees/second Right cool: 10 degrees/second Left warm: 27 degrees/second Left cool: 23 degrees/second Unilateral weakness: 28% in the right ear Directional preponderance: 5% to the right Fixation suppression: 0.17 IMPRESSION: Chronic disequilibrium -- With his history of bilateral cochlear implantation, he is at risk of developing bilateral vestibulopathy, which he could be developing. He could also have a component of PPPD, though the sertraline has not helped. There may also be a migraine effect as well, and he previously thought amytryptilene was helpful, but once he got off of the amytriptilene, his symptoms were not significantly worse. PLAN: I discussed treatment options. I discussed cognitive behavioral therapy as an additional option. I also discussed that we could try weaning him off of the sertraline to see if it was having any impact. He would like to wean off of sertraline. We also discussed that he may benefit from a trial of other migraine medications such as CGRP inhibitors. I recommend that he alternate 150 mg and 100 mg ofsertraline for one week, Then go to 100 mg of sertraline for one week. Then go alternate 50 mg and 100 mg of sertraline for one week. Then use 50 mg of sertraline for one week. Then alternate 50 mg of sertraline with no medication for one week. Then stop sertraline. I also discussed that he should continue the migraine vitamins of magnesium and add riboflavin. I also discussed that I will be relocating to [place] and he will follow-up with one of my partners in 3 months. Devon Dias MD documented in this [facility] Work Phone: [phone]) 296-643906-04-2024 History of Present illness Narrative* Massimo Vizcarra MD - 04/23/2024 10:00 AM EDT Chief Complaint Patient presents with Post Op Visit HPI 1 month s/p PPV/ sutured lens Right Eye (03/25/2024) The patient states that the vision is improved in the right eye. He denies any pain or discomfort. Last drops used yesterday. Last edited by Bozena Kirk on 04/23/2024 9:58 AM. Referring Doctor: Sierra Davidson MD Assessment: #) s/p PPV/ sutured lens Right Eye (03/25/2024) - AKREOS 16.00 Diopters (-0.38) Right Eye - Retina Flat - IOP good - No signs of infection - Start Cipro Right Eye QID - Start PF Right Eye QID - Eye shield at bedtime for the first couple of weeks - Bending/Lifting restrictions for the first six weeks - RD precautions d/w patient at length - (04/02/2024) - notes improved vertigo symptoms. - Retina Flat - IOP good - No signs of infection - Stop Ofloxacin - Start PF taper 4,3,2,1- another week at 4 due to corneal edema - Bending/Lifting restrictions for the first six weeks - RD precautions d/w patient at length - (04/23/2024) retina flat and attached, good IOP - no signs of infection #) De-centered IOL Right Eye -addressed in surgery #) Macular Drusen Left Eye - Observe at present #) History of retinal detachment right eye - ppv/el/gfe 10/08/[address] Rios - detachment was macula off per Dr. Rios's surgical report. 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 Stuart Nino, Carolynn Arias acted as a scribe for Massimo Vizcarra MD for this note of 04/23/2024 3:20 PM. I have reviewed the dictated documentation as scribed by Carolynn Arias and it accurately reflects the work performed and the decisions made. Massimo Vizcarra MD I saw and independently examined this patient today. I discussed my findings and the therapeutic plan with the patient. I agree with the history, physical examination, and medical decisions as outlined. I have reviewed the documentation and it accurately reflects the work performed and the decisions made. NEXT VISIT ORDERS Tropicamide 1% 1 drop Both Eyes x 1 Phenylephrine 2.5% 1 drop to Both Eyes x 1 Allen applanation: Both Eyes OCT Macula: both eyes Optos: both eyes Follow up 3 months [facility] History of Present illness Narrative* Massimo Vizcarra MD - 04/02/2024 10:40 AM EDT Chief Complaint Patient presents with Post Op Visit HPI 78 y/o Male presents in clinic this morning for a Post op VITRECTOMY MECHANICAL PARS PLANA APPROACH, EXCHANGE IOL, SUTURE IRIS CILIARY BODY (MCCANNEL SUTURE) visit of the Right eye. Hx of Dislocationof intraocular lens. Patient asked about problems with loss of vision, eye pain/irritation, redness and discharge. The patient denies all except for the following: Patient reports intermittent FBS OD. Patient mentions floaters since surgery, and are still there. Denies any pain or discomfort OU, today in office. Ocular medications being used at this time: Ciprofloxacin OD QID Prednisolone OD QID No ROS done due to 90 day post op period. Last edited by Linda Chavarria on 04/02/2024 10:54 AM. Referring Doctor: Sierra Davidson MD Assessment: #) s/p PPV/ sutured lens Right Eye (03/25/2024) - AKREOS 16.00 Diopters (-0.38) Right Eye - Retina Flat - IOP good - No signs of infection - Start Cipro Right Eye QID - Start PF Right Eye QID - Eye shield at bedtime for the first couple of weeks - Bending/Lifting restrictions for the first six weeks - RD precautions d/w patient at length - (04/02/2024) - notes improved vertigo symptoms. - Retina Flat - IOP good - No signs of infection - Stop Ofloxacin - Start PF taper 4,3,2,1- another week at 4 due to corneal edema - Bending/Lifting restrictions for the first six weeks - RD precautions d/w patient at length #) De-centered IOL Right Eye -addressed in surgery #) Macular Drusen Left Eye - Observe at present #) History of retinal detachment right eye - ppv/el/gfe 10/08/[address] Rios - detachment was macula off per Dr. Rios's surgical report. 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 Davidson I, LIV Lang acted as a scribe for Massimo Vizcarra MD for this note of 04/02/2024 11:27 AM. I have reviewed the dictated documentation as scribed by LIV Lang and it accurately reflects the work performed and the decisions made. Massimo Vizcarra MD I saw and independently examined this patient today. I discussed my findings and the therapeutic plan with the patient. I agree with the history, physical examination, and medical decisions as outlined. I have reviewed the documentation and it accurately reflects the work performed and the decisions made. NEXT VISIT ORDERS Tropicamide 1% 1 drop Right Eye x 1 Phenylephrine 2.5% 1 drop to Right Eye x 1 Allen applanation: Both Eyes OCT Macula: (Nc) both eyes Optos: (Nc both eyes Follow up As scheduled for post op Auto/MRx documented [facility] this [facility] History of Present illness Narrative* Liliam Mir - 03/26/2024 12:20 PM EDT REASON FOR VISIT Bhavna Roca presents to clinic today for a Post-Op Patient visit. Chief Complaint Post Op Visit HISTORY OF PRESENT ILLNESS HPI Bhavna Roca, a 78 y.o. male is present today for a post op visit 1 day s/p VITRECTOMY MECHANICALPARS PLANA APPROACH; EXCHANGE IOL; SUTURE IRIS CILIARY BODY (MCCANNEL SUTURE) (Right; Right; Right) . POH of Dislocation of intraocular lens, initial encounter. CURRENT OCULAR MEDICATIONS/TREATMENTS: Last edited by Liliam Mir on 03/26/2024 12:23 PM. Allergies, medications & history reviewed & updated by Liliam Mir REVIEW OF SYSTEMS NOT PERFORMED DURING 90 DAY POST OPERATIVE PERIOD >10 minutes was spent with patient updating allergies, medications, and medical history. * Massimo Vizcarra MD - 03/26/2024 12:20 PM EDT Chief Complaint Patient presents with Post Op Visit HPI Bhavna Roca, a 78 y.o. male is present today for a post op visit 1 day s/p VITRECTOMY MECHANICALPARS PLANA APPROACH; EXCHANGE IOL; SUTURE IRIS CILIARY BODY (MCCANNEL SUTURE) (Right; Right; Right) . POH of Dislocationof intraocular lens, initial encounter. Pt slept well, no pain, some itchiness OD CURRENT OCULAR MEDICATIONS/TREATMENTS: Drops picked up Last edited by Liliam Mir on 03/26/2024 12:32 PM. Referring Doctor: Sierra Davidson MD Assessment: #) s/p PPV/ sutured lens Right Eye (03/25/2024) - AKREOS 16.00 Diopters (-0.38) Right Eye - Retina Flat - IOP good - No signs of infection - Start Cipro Right Eye QID - Start PF Right Eye QID - Eye shield at bedtime for the first couple of weeks - Bending/Lifting restrictions for the first six weeks - RD precautions d/w patient at length #) De-centered IOL Right Eye -addressed in surgery #) Macular Drusen Left Eye - Observe at present #) History of retinal detachment right eye - ppv/el/gfe 10/08/[address] Rios - detachment was macula off per Dr. Rios's surgical report. 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 Davidson I, LIV Lang acted as a scribe for Massimo Vizcarra MD for this note of 03/26/2024 12:55 PM. I have reviewed the dictated documentation as scribed by LIV Lang and it accurately reflects the work performed and the decisions made. Massimo Vizcarra MD I saw and independently examined this patient today. I discussed my findings and the therapeutic plan with the patient. I agree with the history, physical examination, and medical decisions as outlined. I have reviewed the documentation and it accurately reflects the work performed and the decisions made. NEXT VISIT ORDERS Tropicamide 1% 1 drop Right Eye x 1 Phenylephrine 2.5% 1 drop to Right Eye x 1 Allen applanation: Both Eyes OCT Macula: (None until 1 month PO) Optos: (None until 1 month PO) Follow up As scheduled for post op documented [facility] Nurse Note* Nursing Notes - Rosa Leonardo RN - 03/25/2024 10:15 AM EDT AVS provided and reviewed with patient and family member. Implant card provided. Questions and concerns addressed. Patient denies further needs at this time. Patient dressed with minimal assistance, ambulated to exit with escort. [facility] be driven [facility] member[facility] Miscellaneous Notes* Nursing Notes - Rosa Leonardo RN - 03/25/2024 10:15 AM EDT AVS provided and reviewed with patient and family member. Implant card provided. Questions and concerns addressed. Patient denies further needs at this time. Patient dressed with minimal assistance, ambulated to exit with escort. Will be driven home per family member. * Op Note - Massimo Vizcarra MD - 03/25/2024 10:15 AM EDT NAME: Bhavna Roca CSN: [id number] DATE: 03/25/2024 AGE: 78 y.o. SURGEON 1: Massimo Vizcarra M.D. ASST. 1: Howard Sarabia MD OPERATIONS: Pars Plana Vitrectomy with Lens Exchange and Scleral Fixated Lens Right eye Peripheral iridectomy ANESTHESIA: MAC with retrobulbar block. PREOPERATIVE DIAGNOSES: Dislocated Intraocular Lens of the Right Eye POSTOPERATIVE DIAGNOSES: Dislocated Intraocular Lens of the Right Eye OPERATIVE INDICATIONS: This is a 78 y.o. year old male who presents for decreased vision. The patient was found to have a subluxed multifocal lens. The decision was made to replace retrieve the lens and fixate the lens to the Sclera. OPERATIVE PROCEDURE: After the risks, benefits, and alternatives of the procedure were explained tothe patient, informed consent was obtained. The attending surgeon, Dr. Massimo Vizcarra, identified the patient in the preoperative holding area, and the appropriate operative site was marked. The patientwas then brought back to the operating room. A sign in was performed. The patient was then sedated and a retrobulbar block consisting of 50:50 mixture of 4% lidocaine and 0.75% Marcaine was placed into the retrobulbar space without complication. Verbal time-out was called prior to completing the retrobulbar block to confirm the surgical location. The patient was then prepped and draped in the usual ophthalmic fashion. A lid speculum was placed in the operative eye. The surgical microscope was brought into place. Thecornea was marked in the horizontal meridian with a corneal marker. A temporal and nasal conjunctival peritomy was performed. Cautery was performed to achieve hemostasis. A caliper was used to measure and lila incision sites. A 25-gauge trocar-cannula system was used to place a cannula in the typical beveled entry with conjunctival displacement in the inferotemporal quadrant. An infusion line was assembled and flushed forall in-line air. The infusion line was placed into the vitreous cavity and was directly visualized prior to unclamping. Once it was unclamped, 2 additional cannulas were placed in the superotemporal and superonasal quadrants in a similar fashion. Two additional sclerotomies were created using the trocar blade 4 mm apart and 3 mm posterior to the limbus. At this time, the vitreous cutter and lightpipe were introduced into the eye and using the wide-angle viewing system, a vitrectomy was performe d. At all times throughout the case light exposure to the macula and fovea were minimized to reducethe risk of phototoxicity. Approximately 2 mg Dilute Kenalog (6 cc BSS to 1 cc triamcinolone) was instilled into the posteriorpole. A complete vitrectomy was performed. The retinal periphery was examined with 360-degree scleral depression. No holes or tears were noted. The dislocated posterior chamber lens was retrieved from the posterior pole. The lens was deliveredto the anterior segment. Viscoelastic was instilled into the anterior chamber. A [place] blade and Keratome blade were used to create a corneal incision. Sub-incisional iris hooks were used to stabilize the iris. The lens was then bifurcated and removed. A peripheral iridectomy was performed. A Bausch & Lomb AO60 AKREOS 16.00 Diopter posterior chamber lens was obtained. 8-0 GORETEX suture was placed through the eylets of the lens. The suture was then placed through the main incision and externalized through the sclerotomy sites using a 25 gauge Forcep. The lens was then placed through the incision and the sutures were pulled to appropriate tension to center the lens. The trocars were removed from the eye. The Suture was then tied and the knot internalized through the sclerotomy.A 7-0 Vicryl was used to close the sclerotomy sites. The conjunctiva was closed in a similar manner. Intraocular Cefuroxime 1 mg was placed. Topical drops of Vigamox and Prednisolone were placed. A sterile ophthalmic dressing was placed on the eye. A patch and shield were placed over the eye. The patient tolerated the procedure well without any complications and was taken to the postoperative recovery area in good condition. ATTESTATION STATEMENT: This was a complex vitreoretinal procedure requiring the assistance of a fully trained stunt double and the Vitreoretinal Service. A qualified resident was not available to participate in this procedure. Therefore, Howard Sarabia MD, the retina fellow was utilized. The skilled assistant controller is necessary to facilitate exposure and visualization of the eye. The skilled assistant controller performs scleral depression, changes the focus of the lens and rotates the wide-field imaging for the operating physician, and assists with closure. This assistance is necessary because the primary surgeon is operating bimanually at the surgical microscope. The attending surgeon, Dr. Massimo Vizcarra was present for and participated in all critical portions of this case. ESTIMATED BLOOD LOSS: Less than 5 mL. SPECIMENS: None. COMPLICATIONS: None. * Brief Op Note - Howard Sarabia MD - 03/25/2024 9:50 AM EDT Bhavna Roca ([id number]) PRE OPERATIVE DIAGNOSIS Dislocation of intraocular lens, initial encounter [T85.22XA] POST OPERATIVE DIAGNOSIS Dislocation of intraocular lens, initial encounter [T85.22XA] PROCEDURE PERFORMED Procedure(s) (LRB): VITRECTOMY MECHANICAL PARS PLANA APPROACH (Right) EXCHANGE IOL (Right) SUTURE IRIS CILIARY BODY (MCCANNEL SUTURE) (Right) PRIMARY CLOSURE Yes INTRAOPERATIVE FINDINGS No significant abnormalities SURGEON Surgeons and Role: * Massimo Vizcarra MD - Primary * Howard Sarabia MD - Fellow ANESTHESIOLOGIST Anesthesiologist: Kofi Molina MD DAIRY CATTLE FARM WORKER: Faye Mai APRN-DAIRY CATTLE FARM WORKER SURGICAL STAFF Merchandiser: Elle Logan RN Relief Merchandiser: Bozena Berumen RN Relief Scrub: Cheyenne Chang Scrub Person: Cheyenne Spears COMPLICATIONS None ESTIMATED BLOOD LOSS Minimal SPECIMENS No specimen sent * No specimens in log * Howard Sarabia MD March 25, 2024 9:50 AM documented in this encounterU [facility] Postoperative evaluation and management note* Op Note - Massimo Vizcarra MD - 03/25/2024 10:15 AM EDT NAME: Bhavna Roca CSN: [id number] DATE: 03/25/2024 AGE: 78 y.o. SURGEON 1: Massimo Vizcarra M.D. ASST. 1: Howard Sarabia MD OPERATIONS: Pars Plana Vitrectomy with Lens Exchange and Scleral Fixated Lens Right eye Peripheral iridectomy ANESTHESIA: MAC with retrobulbar block. PREOPERATIVE DIAGNOSES: Dislocated Intraocular Lens of the Right Eye POSTOPERATIVE DIAGNOSES: Dislocated Intraocular Lens of the Right Eye OPERATIVE INDICATIONS: This is a 78 y.o. year old male who presents for decreased vision. The patient was found to have a subluxed multifocal lens. The decision was made to replace retrieve the lens and fixate the lens to the Sclera. OPERATIVE PROCEDURE: After the risks, benefits, and alternatives of the procedure were explained tothe patient, informed consent was obtained. The attending surgeon, Dr. Massimo Vizcarra, identified the patient in the preoperative holding area, and the appropriate operative site was marked. The patientwas then brought back to the operating room. A sign in was performed. The patient was then sedated and a retrobulbar block consisting of 50:50 mixture of 4% lidocaine and 0.75% Marcaine was placed into the retrobulbar space without complication. Verbal time-out was called prior to completing the retrobulbar block to confirm the surgical location. The patient was then prepped and draped in the usual ophthalmic fashion. A lid speculum was placed in the operative eye. The surgical microscope was brought into place. Thecornea was marked in the horizontal meridian with a corneal marker. A temporal and nasal conjunctival peritomy was performed. Cautery was performed to achieve hemostasis. A caliper was used to measure and lila incision sites. A 25-gauge trocar-cannula system was used to place a cannula in the typical beveled entry with conjunctival displacement in the inferotemporal quadrant. An infusion line was assembled and flushed forall in-line air. The infusion line was placed into the vitreous cavity and was directly visualized prior to unclamping. Once it was unclamped, 2 additional cannulas were placed in the superotemporal and superonasal quadrants in a similar fashion. Two additional sclerotomies were created using the trocar blade 4 mm apart and 3 mm posterior to the limbus. At this time, the vitreous cutter and lightpipe were introduced into the eye and using the wide-angle viewing system, a vitrectomy was performe d. At all times throughout the case light exposure to the macula and fovea were minimized to reducethe risk of phototoxicity. Approximately 2 mg Dilute Kenalog (6 cc BSS to 1 cc triamcinolone) was instilled into the posteriorpole. A complete vitrectomy was performed. The retinal periphery was examined with 360-degree scleral depression. No holes or tears were noted. The dislocated posterior chamber lens was retrieved from the posterior pole. The lens was deliveredto the anterior segment. Viscoelastic was instilled into the anterior chamber. A [place] blade and Keratome blade were used to create a corneal incision. Sub-incisional iris hooks were used to stabilize the iris. The lens was then bifurcated and removed. A peripheral iridectomy was performed. A Bausch & Lomb AO60 AKREOS 16.00 Diopter posterior chamber lens was obtained. 8-0 GORETEX suture was placed through the eylets of the lens. The suture was then placed through the main incision and externalized through the sclerotomy sites using a 25 gauge Forcep. The lens was then placed through the incision and the sutures were pulled to appropriate tension to center the lens. The trocars were removed from the eye. The Suture was then tied and the knot internalized through the sclerotomy.A 7-0 Vicryl was used to close the sclerotomy sites. The conjunctiva was closed in a similar manner. Intraocular Cefuroxime 1 mg was placed. Topical drops of Vigamox and Prednisolone were placed. A sterile ophthalmic dressing was placed on the eye. A patch and shield were placed over the eye. The patient tolerated the procedure well without any complications and was taken to the postoperative recovery area in good condition. ATTESTATION STATEMENT: This was a complex vitreoretinal procedure requiring the assistance of a fully trained stunt double and the Vitreoretinal Service. A qualified resident was not available to participate in this procedure. Therefore, Howard Sarabia MD, the retina fellow was utilized. The skilled assistant controller is necessary to facilitate exposure and visualization of the eye. The skilled assistant controller performs scleral depression, changes the focus of the lens and rotates the wide-field imaging for the operating physician, and assists with closure. This assistance is necessary because the primary surgeon is operating bimanually at the surgical microscope. The attending surgeon, Dr. Massimo Vizcarra was present for and participated in all critical portions of this case. ESTIMATED BLOOD LOSS: Less than 5 mL. SPECIMENS: None. COMPLICATIONS: None. [facility] Work Phone: [phone]) 177-168205-06-2024 Nurse Surgical operation note* Elle Logan RN - 03/25/2024 9:50 AM EDT Pt transported to PACU with anesthesia personnel. Report given to MULTIMEDIA PROJECT MANAGER. [facility]05-06-2024 Surgery Postoperative evaluation and management note* Brief Op Note - Howard Sarabia MD - 03/25/2024 9:50 AM EDT Bhavna Roca ([id number]) PRE OPERATIVE DIAGNOSIS Dislocation of intraocular lens, initial encounter [T85.22XA] POST OPERATIVE DIAGNOSIS Dislocation of intraocular lens, initial encounter [T85.22XA] PROCEDURE PERFORMED Procedure(s) (LRB): VITRECTOMY MECHANICAL PARS PLANA APPROACH (Right) EXCHANGE IOL (Right) SUTURE IRIS CILIARY BODY (MCCANNEL SUTURE) (Right) PRIMARY CLOSURE Yes INTRAOPERATIVE FINDINGS No significant abnormalities SURGEON Surgeons and Role: * Massimo Vizcarra MD - Primary * Howard Sarabia MD - Fellow ANESTHESIOLOGIST Anesthesiologist: Kofi Molina MD DAIRY CATTLE FARM WORKER: Faye Mai APRN-DAIRY CATTLE FARM WORKER SURGICAL STAFF Merchandiser: Elle Logan RN Relief Merchandiser: Bozena Berumen RN Relief Scrub: Cheyenne Chang Scrub Person: Cheyenne Spears COMPLICATIONS None ESTIMATED BLOOD LOSS Minimal SPECIMENS No specimen sent * No specimens in log * Howard Sarabia MD March 25, 2024 9:50 [facility] Discharge instructions* Discharge Instructions* Howard Sarabia MD - 03/25/2024 9:50 AM EDT Care After Eye Surgery Diet: Start your regular diet today Activity: Avoid straining, exertion or heavy lifting until further notice. No strenuous exercise or lifting anything heavier than a gallon of milk Positioning: No specific positioning required Wound Care and Hygiene: Do not rub or apply pressure to the eye. Keep the eye patch on until your follow-up appointment tomorrow. Anesthesia Precautions & Expectations: After anesthesia, rest for [address], drink alcoholic beverages or make any important decisions during this time. General anesthesia may cause a sore throat, jaw discomfort or muscle aches. These symptoms can last for one or two days. What to Expect after Surgery: Eye redness, eye irritation or scratchy sensation, tearing, watery discharge which may be bloody Call your Doctor for: Increasing eye pain or headache not relieved by over the counter pain medication Worsening vision A temperature above 100.4 degrees Severe nausea and vomiting Medications: Eye drops: These were prescribed to your pharmacy and will be started after the patch is removed tomorrow - Ofloxacin (bella top) - 4 times a day in the surgical eye - Pred Forte (pink top) - 4 times a day in the surgical eye Pain medication: Use tylenol as needed according to the instructions on the packaging. Be sure not to exceed 4000mg tylenol from all sources in a 24 hour period to avoid overdose and liver toxicity. Other medications: Resume your usual home medications. If you have any problems or questions, call the answering service at [phone]. If you are unable to reach us at the above number, call the hospital coal trimmer machine operator at [phone] and ask for the EYE resident software controls engineer. You have a follow-up appointment tomorrow with Dr. Vizcarra [facility] [place] [phone] documented in this encounterOSU [facility] Nurse Note* Elle Logan RN - 03/25/2024 9:50 AM EDT Pt transported to PACU with anesthesia personnel. Report given to MULTIMEDIA PROJECT MANAGER. documented in this encounterOSU [facility] History and physical note* Howard Sarabia MD - 03/25/2024 7:56 AM EDT Ophthalmology Pre-Op H&P CC: Blurry vision OD HPI: 78 y.o. male with subluxed IOL here for retina surgery OD. Review of Systems - History obtained from the patient General ROS: negative Ophthalmic ROS: see HPI ENT ROS: negative Allergy and Immunology ROS: negative Respiratory ROS: negative Cardiovascular ROS: no chest pain or dyspnea on exertion Gastrointestinal ROS: no abdominal pain, change in bowel habits, or black or bloody stools Musculoskeletal ROS: negative Neurological ROS: no TIA or stroke symptoms Dermatological ROS: negative Past Medical History: Diagnosis Date Essential hypertension, benign Hyperlipidemia Migraine Vestibular disorder Past Surgical History: Procedure Laterality Date EXTRACTION EXTRACAPSULAR CATARACT W/ IMPLANT (ECCE IOL) Bilateral 2014 INSERTION COCHLEAR IMPLANT Bilateral Social History Tobacco Use Smoking status: Former Types: Cigarettes Passive exposure: Past Smokeless tobacco: Never Vaping Use Vaping status: Former Substance Use Topics Alcohol use: Not Currently Drug use: Not Currently Allergies Allergen Reactions Topiramate Other Reaction(s): Other, Other (See Comments) Brain fog Exam: Vitals: 03/25/24 0700 BP: 147/71 Pulse: 61 Resp: 10 Temp: 99.3 F (37.4 C) SpO2: 96% Not recorded GEN: AAOx3 ENT: oropharynx clear, MMM CARDIO: RRR, no M/R/G PULM: CTAB, breathing comfortably ABD: soft, NT, ND NEURO: CN grossly intact (cannot eval CN 2 - pharm dilated), Grossly full and symmetric strength inupper and lower extremities SKIN: Dry, warm Labs: No results found for: WBC, WBCCOUNT, WBCFETAL, HGB, HCT, PLATELET, MCV Relevant studies: Assessment and Plan: 1) subluxed IOL OD - Proceed with surgery I saw and independently examined this patient today. I discussed my findings and the therapeutic plan with the patient. I agree with the history, physical examination, and medical decisions as outlined. [facility] History and physical note* Howard Sarabia MD - 03/25/2024 7:56 AM EDT Ophthalmology Pre-Op H&P CC: Blurry vision OD HPI: 78 y.o. male with subluxed IOL here for retina surgery OD. Review of Systems - History obtained from the patient General ROS: negative Ophthalmic ROS: see HPI ENT ROS: negative Allergy and Immunology ROS: negative Respiratory ROS: negative Cardiovascular ROS: no chest pain or dyspnea on exertion Gastrointestinal ROS: no abdominal pain, change in bowel habits, or black or bloody stools Musculoskeletal ROS: negative Neurological ROS: no TIA or stroke symptoms Dermatological ROS: negative Past Medical History: Diagnosis Date Essential hypertension, benign Hyperlipidemia Migraine Vestibular disorder Past Surgical History: Procedure Laterality Date EXTRACTION EXTRACAPSULAR CATARACT W/ IMPLANT (ECCE IOL) Bilateral 2014 INSERTION COCHLEAR IMPLANT Bilateral Social History Tobacco Use Smoking status: Former Types: Cigarettes Passive exposure: Past Smokeless tobacco: Never Vaping Use Vaping status: Former Substance Use Topics Alcohol use: Not Currently Drug use: Not Currently Allergies Allergen Reactions Topiramate Other Reaction(s): Other, Other (See Comments) Brain fog Exam: Vitals: 03/25/24 0700 BP: 147/71 Pulse: 61 Resp: 10 Temp: 99.3 F (37.4 C) SpO2: 96% Not recorded GEN: AAOx3 ENT: oropharynx clear, MMM CARDIO: RRR, no M/R/G PULM: CTAB, breathing comfortably ABD: soft, NT, ND NEURO: CN grossly intact (cannot eval CN 2 - pharm dilated), Grossly full and symmetric strength inupper and lower extremities SKIN: Dry, warm Labs: No results found for: WBC, WBCCOUNT, WBCFETAL, HGB, HCT, PLATELET, MCV Relevant studies: Assessment and Plan: 1) subluxed IOL OD - Proceed with surgery I saw and independently examined this patient today. I discussed my findings and the therapeutic plan with the patient. I agree with the history, physical examination, and medical decisions as outlined. documented in this encounterOSU [facility] NoteProcedure date: 03/14/2024. Right Eye Quality was good. Findings include cystoid macular edema, epiretinal membrane. Interval change is baseline. Recommendation for management is to schedule surgery. Left Eye Quality was borderline. Findings include drusen. Interval change is baseline. Recommendation for management is to observe.[facility] NoteProcedure date: 03/14/2024. Right Eye Quality was good. Findings include cystoid macular edema, epiretinal membrane. Interval change is baseline. Recommendation for management is to schedule surgery. Left Eye Quality was borderline. Findings include drusen. Interval change is baseline. Recommendation for management is to observe.[id number] History of Present illness Narrative* Keysha Pinon - 03/14/2024 1:00 PM EDT REASON FOR VISIT Bhavna Roca presents to clinic today for a New Patient visit. Chief Complaint New Patient HISTORY OF PRESENT ILLNESS HPI 78 y.o. male presents today as a new patient due to possible dislocated IOL OD. Patient referred byDr. Sierra Davidson. He states he had cataract surgery [facility] about 10 years ago. Was told when he initially had surgery that the lens OD was not in the right place but did not start causing problems visually until recently. Pt states when he moves head, he feels bad causes lack of motivation. Can't get out of bed for 3-4 days at a time Denies eye pain, headache or nausea- just feels bad eyes are not in sync C/o a lot of fatigue, blurriness and eye strain OD. Dx with PPPD. VA gradually just continues to get worse. +OS, has c/o intermittent blurriness, notes watery film that will eventually go away. 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 +RD OD after cat sx., s/p PPV approx 2 yrs later. Ocular Meds: None. Last edited by Keysha Pinon on 03/14/2024 2:46 PM. Allergies, medications & history reviewed & updated by Keysha Pinon REVIEW OF SYSTEMS Review of Systems >25 minutes was spent with patient updating allergies, medications, and medical history. Referring Physician: Sierra Davidson MD * Massimo Vizcarra MD - 03/14/2024 1:00 PM EDT Chief Complaint Patient presents with New Patient HPI 78 y.o. male presents today as a new patient due to possible dislocated IOL OD. Patient referred byDr. Sierra Davidson. He states he had cataract surgery [facility] about 10 years ago. Was told when he initially had surgery that the lens OD was not in the right place but did not start causing problems visually until recently. Pt states when he moves head, he feels bad causes lack of motivation. Can't get out of bed for 3-4 days at a time Denies eye pain, headache or nausea- just feels bad eyes are not in sync C/o a lot of fatigue, blurriness and eye strain OD. Dx with PPPD. VA gradually just continues to get worse. +OS, has c/o intermittent blurriness, notes watery film that will eventually go away. +Pseudophakic OS 2013 Multifocal lens. +RD OD after cat sx., s/p PPV approx 2 yrs later. Ocular Meds: None. Last edited by Keysha Pinon on 03/14/2024 2:46 PM. Referring Doctor: Sierra Davidson MD Assessment: #) De-centered IOL Right Eye - Multifocal IOL - discussed that with surgery there may not be an improvement due to history of macula off retinal detachment. - Extensive conversation regarding potential outcome. - Discussed possible neurological component with dizziness and moving head; unknown if coorelates to lens. Patient is interested in proceeding with surgery. - Discussed treatment options, risks, and benefits - Consider PPV/Sutured IOL, PPV/Leaving Aphakic then second surgery once eye heals, PPV/ACIOL, Observation - Discussed gas restrictions if we were to use - Measurements, and consent obtained - Plan: Pars Plana Vitrectomy/Lens Exchange/SFIOL Right Eye - Goal: [place] - AKREOS 16.00 Diopters (-0.38) Right Eye #) Macular Drusen Left Eye - Observe at present #) History of retinal detachment right eye - ppv/el/gfe 10/08/[address] Rios - detachment was macula off per Dr. Rios's surgical report. 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 Stuart Nino, LIV Lang acted as a scribe for Massimo Vizcarra MD for this note of 03/14/2024 9:58 AM. I have reviewed the dictated documentation as scribed by LIV Lang and it accurately reflects the work performed and the decisions made. Massimo Vizcarra MD I saw and independently examined this patient today. I discussed my findings and the therapeutic plan with the patient. I agree with the history, physical examination, and medical decisions as outlined. I have reviewed the documentation and it accurately reflects the work performed and the decisions made. NEXT VISIT ORDERS Tropicamide 1% 1 drop Right Eye x 1 Phenylephrine 2.5% 1 drop to Right Eye x 1 Allen applanation: Both Eyes OCT Macula: (None until 1 month PO) Optos: (None until 1 month PO) Follow up in surgery Right Eye documented in this [facility]04-12-2024 History of Present illness Narrative* Devon Dias MD - 03/01/2024 11:00 AM EDT CHIEF COMPLAINT: Chief Complaint Patient presents with Follow-up History of present illness from 03/17/2023: Bhavna Roca is a 77-year-old man who presents today with significant disequilibrium. He has a history of bilateral cochlear implantation, most recently in 2009. 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 He has been previously seen and tesha luated by Dr. Riley. He has had a VNG from the [facility], which suggests significant right-sided vestibulopathy. A subsequent VNG here shows a significant right-sided weakness, but functional left-sided vestibular system. While MRI and CT are unavailable, reportedly the CT demonstrated rightcanal plugging. The MRI in the past was reportedly negative for any evidence of retrocochlear pathology. More recently, he was started on migraine therapy with nortriptyline approximately 1 year ago.He reports that he had significant improvement in his disequilibrium and balance with the nortriptyline. However, he reports that in the past several months he feels that his equilibrium is worse again. He reports that he has daily disequilibrium, which is worse with sudden movements and with bumpsin the car. He denies difficulty with visual symptoms or complex patterns. He denies any significant headache component. He does have significant difficulty walking in the dark. However, he does not r eport any oscillopsia. He also has peripheral neuropathy and has a history of retinal issues. Interval History from 05/12/2023: He reports persistent symptoms. He reports daily dizziness that is worsened with complex visual patterns and movements. Interval History 07/27/2023: He reports that he has been switched from nortryptilene to amytryptilenein the interim, with significant worsening in his symptoms. He still has daily dizziness that is worsened with complex visual patterns. He went back to vestibular therapy, who did not see any significant improvement from his last session. Interval History 08/31/2023: At his last visit, we stopped his nortryptilene and started sertraline. He reported that he had some improvement in symptoms, but then seems to have worsened for the past2 weeks. He feels that he is not worse than he was on the nortrypilene or the amytryptilene. He denies side effects. Interval history from 10/26/2023: He reports significant improvement in his symptoms since he has been on 50 mg of the sertraline. He denies significant side effects. Interval History: He reports some improvement with his increased dose, but he reports persistent dizziness. He would like to try an increased dose. PAST MEDICAL HISTORY: Past Medical History: Diagnosis Date Internal hemorrhoids 09/15/2008 Personal history of other diseases of the circulatory system History of hypertension Personal history of other diseases of the nervous system and sense organs History of cataract Personal history of other endocrine, nutritional and metabolic disease History of high cholesterol PAST SURGICAL HISTORY: Past Surgical History: Procedure Laterality Date OTHER SURGICAL HISTORY 04/03/2018 Cochlear Implant MEDICATIONS: Current Outpatient Medications: aspirin 81 mg EC tablet, Take by mouth once daily., Disp: , Rfl: co-enzyme Q-10 50 mg capsule, Take 1 capsule (50 mg) by mouth once daily., Disp: , Rfl: lisinopril 20 mg tablet, Take 1 tablet (20 mg) by mouth once daily., Disp: , Rfl: magnesium oxide (Mag-Ox) 400 mg (241.3 mg magnesium) tablet, Take 1 tablet (400 mg) by mouth once daily., Disp: , Rfl: RIBOFLAVIN, VITAMIN B2, ORAL, Take by mouth., Disp: , Rfl: simvastatin (Zocor) 40 mg tablet, Take 1 tablet (40 mg) by mouth once daily., Disp: , Rfl: acetaZOLAMIDE (Diamox) 250 mg tablet, Take by mouth., Disp: , Rfl: Aimovig Autoinjector 140 mg/mL injection, , Disp: , Rfl: amitriptyline (Elavil) 25 mg tablet, Take 1 tablet (25 mg) by mouth once daily at bedtime., Disp: ,Rfl: b complex-vitamin c tablet, Take 1 tablet by mouth once daily in the morning. Take before meals., Disp: , Rfl: cholecalciferol (VITAMIN D-3) 10 mcg (400 unit) tablet, Take by mouth., Disp: , Rfl: codeine-guaifenesin (Robitussin-AC) 10-100 mg/5 mL syrup, take 10 milliliters (2 TEASPOONFULS) by mouth every 4 hours if needed for cough, Disp: , Rfl: hydroCHLOROthiazide (HYDRODiuril) 12.5 mg tablet, Take 1 tablet (12.5 mg) by mouth once daily., Disp: , Rfl: meclizine (Antivert) 12.5 mg tablet, Take 1 tablet (12.5 mg) by mouth 3 times a day as needed for dizziness., Disp: , Rfl: multivitamin tablet, Take 1 tablet by mouth once daily., Disp: , Rfl: nortriptyline (Pamelor) 25 mg capsule, Take 3 capsules (75 mg) by mouth once daily at bedtime., Disp: , Rfl: Paxlovid 300 mg (150 mg x 2)-100 mg tablet therapy pack, take 2 NIRMATRELVIR tablets with 1 RITONAVIR tablet twice a day for 5 days, Disp: , Rfl: predniSONE (Deltasone) 10 mg tablet, Take by mouth four (4) tabs x3 days; then three (3) tabs x3days; then two (2) tabs x3 days; then one (1) tab a day x3 days, Disp: , Rfl: ramipril (Altace) 10 mg capsule, Take 1 capsule (10 mg) by mouth once daily., Disp: , Rfl: ribociclib (Kisqali) 200 mg tablet therapy pack, Take 1 tablet (200 mg total) by mouth once daily. Take 1 tablet (200 mg) by mouth in the morning for 21 days, followed by 7 days off per 28-day treatment cycle., Disp: , Rfl: sertraline (Zoloft) 100 mg tablet, Take 1.5 tablets (150 mg) by mouth once daily., Disp: 45 tablet,Rfl: 1 Sutab 1.479-0.188- 0.225 gram tablet, , Disp: , Rfl: venlafaxine XR (Effexor-XR) 37.5 mg 24 hr capsule, Take by mouth., Disp: , Rfl: ALLERGIES: Allergies Allergen Reactions Metoprolol Succinate Dizziness Didn't help dizziness/headaches Topiramate Other Brain fog SOCIAL HISTORY: reports that he has never smoked. His smokeless tobacco use includes chew. He reports that he does not drink alcohol and does not use drugs. PHYSICAL EXAM: VITALS: Vitals: 03/01/24 1117 BP: 130/85 BP Location: Left arm Patient Position: Sitting BP Cuff Size: Adult long Pulse: 70 Temp: 36.8 C (98.3 F) TempSrc: Temporal Weight: 103 kg (228 lb) Height: 1.854 m (6' 1) Physical Examination: CONSTITUTIONAL: No acute distress VOICE: No hoarseness or other abnormality RESPIRATION: Breathing comfortably, no stridor CV: No clubbing/cyanosis/edema in hands EYES: EOM intact, sclera clear NEURO: Alert and oriented times 3, Cranial nerves II-XII grossly intact and symmetric bilaterally HEAD AND FACE: Symmetric facial features, no masses or lesions SALIVARY GLANDS: Parotid and submandibular glands normal bilaterally RIGHT EAR: Normal external ear and post auricular area, no visible lesions, external auditory canalpatent, tympanic membrane intact, no retraction, no signs of mass, effusion, or infection within the middle ear LEFT EAR: Normal external ear and post auricular area, no visible lesions, external auditory canal patent, tympanic membrane intact, no retraction, no signs of mass, effusion, or infection within themiddle ear NOSE: External nose midline, ORAL CAVITY/OROPHARYNX/LIPS: Normal mucous membranes, normal floor of mouth/tongue/OP, no masses orlesions PHARYNGEAL LEAHY: No masses or lesions NECK/LYMPH: No LAD, no thyroid masses, trachea midline SKIN: Neck and facial skin is without scar or injury PSYCH: Alert and oriented with appropriate mood and affect DATA REVIEWED: I reviewed the patient's prior VNG, which demonstrates a right-sided peripheral weakness. 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 PLAN: I discussed treatment options including continuing sertraline and increasing the dose. He would like to increase the dose of sertraline. We will increase his dose to 150 mg daily, alternating with 100 mg for the first week, then going to 150 mg daily. I also discussed that he should continue the migraine vitamins of magnesium and add riboflavin. I also recommend a CMP and an EKG in 3-4 weeks after he has increased the dose. He will follow-up in 3 months. Devon Dias MD documented in this [facility] Work Phone: [phone] History of Present illness Narrative* Devon Dias MD - 10/26/2023 10:30 AM EST CHIEF COMPLAINT: Chief Complaint Patient presents with Follow-up History of present illness from 03/17/2023: Bhavna Roca is a 77-year-old man who presents today with significant disequilibrium. He has a history of bilateral cochlear implantation, most recently in 2009. 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 He has been previously seen and tesha luated by Dr. Riley. He has had a VNG from the [facility], which suggests significant right-sided vestibulopathy. A subsequent VNG here shows a significant right-sided weakness, but functional left-sided vestibular system. While MRI and CT are unavailable, reportedly the CT demonstrated rightcanal plugging. The MRI in the past was reportedly negative for any evidence of retrocochlear pathology. More recently, he was started on migraine therapy with nortriptyline approximately 1 year ago.He reports that he had significant improvement in his disequilibrium and balance with the nortriptyline. However, he reports that in the past several months he feels that his equilibrium is worse again. He reports that he has daily disequilibrium, which is worse with sudden movements and with bumpsin the car. He denies difficulty with visual symptoms or complex patterns. He denies any significant headache component. He does have significant difficulty walking in the dark. However, he does not r eport any oscillopsia. He also has peripheral neuropathy and has a history of retinal issues. Interval History from 05/12/2023: He reports persistent symptoms. He reports daily dizziness that is worsened with complex visual patterns and movements. Interval History 07/27/2023: He reports that he has been switched from nortryptilene to amytryptilenein the interim, with significant worsening in his symptoms. He still has daily dizziness that is worsened with complex visual patterns. He went back to vestibular therapy, who did not see any significant improvement from his last session. Interval History 08/31/2023: At his last visit, we stopped his nortryptilene and started sertraline. He reported that he had some improvement in symptoms, but then seems to have worsened for the past2 weeks. He feels that he is not worse than he was on the nortrypilene or the amytryptilene. He denies side effects. Interval history: He reports significant improvement in his symptoms since he has been on 50 mg of the sertraline. He denies significant side effects. PAST MEDICAL HISTORY: Past Medical History: Diagnosis Date Internal hemorrhoids 09/15/2008 Personal history of other diseases of the circulatory system History of hypertension Personal history of other diseases of the nervous system and sense organs History of cataract Personal history of other endocrine, nutritional and metabolic disease History of high cholesterol PAST SURGICAL HISTORY: Past Surgical History: Procedure Laterality Date OTHER SURGICAL HISTORY 04/03/2018 Cochlear Implant MEDICATIONS: Current Outpatient Medications: aspirin 81 mg EC tablet, Take by mouth once daily., Disp: , Rfl: b complex-vitamin c tablet, Take 1 tablet by mouth once daily in the morning. Take before meals., Disp: , Rfl: co-enzyme Q-10 50 mg capsule, Take 1 capsule (50 mg) by mouth once daily., Disp: , Rfl: lisinopril 20 mg tablet, Take 1 tablet (20 mg) by mouth once daily., Disp: , Rfl: magnesium oxide (Mag-Ox) 400 mg (241.3 mg magnesium) tablet, Take 1 tablet (400 mg) by mouth once daily., Disp: , Rfl: multivitamin tablet, Take 1 tablet by mouth once daily., Disp: , Rfl: simvastatin (Zocor) 40 mg tablet, Take 1 tablet (40 mg) by mouth once daily., Disp: , Rfl: acetaZOLAMIDE (Diamox) 250 mg tablet, Take by mouth., Disp: , Rfl: Aimovig Autoinjector 140 mg/mL injection, , Disp: , Rfl: amitriptyline (Elavil) 25 mg tablet, Take 1 tablet (25 mg) by mouth once daily at bedtime., Disp: ,Rfl: cholecalciferol (VITAMIN D-3) 10 mcg (400 unit) tablet, Take by mouth., Disp: , Rfl: codeine-guaifenesin (Robitussin-AC) 10-100 mg/5 mL syrup, take 10 milliliters (2 TEASPOONFULS) by mouth every 4 hours if needed for cough, Disp: , Rfl: hydroCHLOROthiazide (HYDRODiuril) 12.5 mg tablet, Take 1 tablet (12.5 mg) by mouth once daily., Disp: , Rfl: meclizine (Antivert) 12.5 mg tablet, Take 1 tablet (12.5 mg) by mouth 3 times a day as needed for dizziness., Disp: , Rfl: nortriptyline (Pamelor) 25 mg capsule, Take 3 capsules (75 mg) by mouth once daily at bedtime., Disp: , Rfl: Paxlovid 300 mg (150 mg x 2)-100 mg tablet therapy pack, take 2 NIRMATRELVIR tablets with 1 RITONAVIR tablet twice a day for 5 days, Disp: , Rfl: predniSONE (Deltasone) 10 mg tablet, Take by mouth four (4) tabs x3 days; then three (3) tabs x3days; then two (2) tabs x3 days; then one (1) tab a day x3 days, Disp: , Rfl: ramipril (Altace) 10 mg capsule, Take 1 capsule (10 mg) by mouth once daily., Disp: , Rfl: ribociclib (Kisqali) 200 mg tablet therapy pack, Take 1 tablet (200 mg total) by mouth once daily. Take 1 tablet (200 mg) by mouth in the morning for 21 days, followed by 7 days off per 28-day treatment cycle., Disp: , Rfl: sertraline (Zoloft) 100 mg tablet, Take 1 tablet (100 mg) by mouth once daily., Disp: 90 tablet, Rfl: 3 Sutab 1.479-0.188- 0.225 gram tablet, , Disp: , Rfl: venlafaxine XR (Effexor-XR) 37.5 mg 24 hr capsule, Take by mouth., Disp: , Rfl: ALLERGIES: Allergies Allergen Reactions Metoprolol Succinate Dizziness Didn't help dizziness/headaches Topiramate Other Brain fog SOCIAL HISTORY: reports that he has never smoked. His smokeless tobacco use includes chew. He reports that he does not drink alcohol and does not use drugs. PHYSICAL EXAM: VITALS: Vitals: 10/26/23 1045 BP: 124/72 BP Location: Left arm Patient Position: Sitting BP Cuff Size: Adult long Pulse: 61 Temp: 36.8 C (98.2 F) TempSrc: Temporal Weight: 102 kg (225 lb) Height: 1.854 m (6' 1) Physical Examination: CONSTITUTIONAL: No acute distress VOICE: No hoarseness or other abnormality RESPIRATION: Breathing comfortably, no stridor CV: No clubbing/cyanosis/edema in hands EYES: EOM intact, sclera clear NEURO: Alert and oriented times 3, Cranial nerves II-XII grossly intact and symmetric bilaterally HEAD AND FACE: Symmetric facial features, no masses or lesions SALIVARY GLANDS: Parotid and submandibular glands normal bilaterally RIGHT EAR: Normal external ear and post auricular area, no visible lesions, external auditory canalpatent, tympanic membrane intact, no retraction, no signs of mass, effusion, or infection within the middle ear LEFT EAR: Normal external ear and post auricular area, no visible lesions, external auditory canal patent, tympanic membrane intact, no retraction, no signs of mass, effusion, or infection within themiddle ear NOSE: External nose midline, ORAL CAVITY/OROPHARYNX/LIPS: Normal mucous membranes, normal floor of mouth/tongue/OP, no masses orlesions PHARYNGEAL LEAHY: No masses or lesions NECK/LYMPH: No LAD, no thyroid masses, trachea midline SKIN: Neck and facial skin is without scar or injury PSYCH: Alert and oriented with appropriate mood and affect DATA REVIEWED: I reviewed the patient's prior VNG, which demonstrates a right-sided peripheral weakness. 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 PLAN: I discussed treatment options including continuing sertraline and increasing the dose. He would like to increase the dose of sertraline. We will increase his dose to 100 mg daily, alternating with 50mg for the first week, then going to 100 mg daily. I also discussed that he should continue the migraine vitamins of magnesium and add riboflavin. He will follow-up in February Devon Dias MD documented in this [facility] Work Phone: [phone] 953-777110-12-2023 History of Present illness Narrative* Devon Dias MD - 08/31/2023 11:00 AM EDT CHIEF COMPLAINT: Chief Complaint Patient presents with Follow-up Pt states not feeling well History of present illness from 03/17/2023: Bhavna Roca is a 77-year-old man who presents today with significant disequilibrium. He has a history of bilateral cochlear implantation, most recently in 2009. 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 He has been previously seen and tesha luated by Dr. Riley. He has had a VNG from the [facility], which suggests significant right-sided vestibulopathy. A subsequent VNG here shows a significant right-sided weakness, but functional left-sided vestibular system. While MRI and CT are unavailable, reportedly the CT demonstrated rightcanal plugging. The MRI in the past was reportedly negative for any evidence of retrocochlear pathology. More recently, he was started on migraine therapy with nortriptyline approximately 1 year ago.He reports that he had significant improvement in his disequilibrium and balance with the nortriptyline. However, he reports that in the past several months he feels that his equilibrium is worse again. He reports that he has daily disequilibrium, which is worse with sudden movements and with bumpsin the car. He denies difficulty with visual symptoms or complex patterns. He denies any significant headache component. He does have significant difficulty walking in the dark. However, he does not r eport any oscillopsia. He also has peripheral neuropathy and has a history of retinal issues. Interval History from 05/12/2023: He reports persistent symptoms. He reports daily dizziness that is worsened with complex visual patterns and movements. Interval History 07/27/2023: He reports that he has been switched from nortryptilene to amytryptilenein the interim, with significant worsening in his symptoms. He still has daily dizziness that is worsened with complex visual patterns. He went back to vestibular therapy, who did not see any significant improvement from his last session. Interval History: At his last visit, we stopped his nortryptilene and started sertraline. He reported that he had some improvement in symptoms, but then seems to have worsened for the past 2 weeks. He feels that he is not worse than he was on the nortrypilene or the amytryptilene. He denies side effects. PAST MEDICAL HISTORY: Past Medical History: Diagnosis Date Personal history of other diseases of the circulatory system History of hypertension Personal history of other diseases of the nervous system and sense organs History of cataract Personal history of other endocrine, nutritional and metabolic disease History of high cholesterol PAST SURGICAL HISTORY: Past Surgical History: Procedure Laterality Date OTHER SURGICAL HISTORY 04/03/2018 Cochlear Implant MEDICATIONS: Current Outpatient Medications: aspirin 81 mg EC tablet, Take by mouth once daily., Disp: , Rfl: b complex-vitamin c tablet, Take 1 tablet by mouth once daily in the morning. Take before meals., Disp: , Rfl: co-enzyme Q-10 50 mg capsule, Take 1 capsule (50 mg) by mouth once daily., Disp: , Rfl: lisinopril 20 mg tablet, Take 1 tablet (20 mg) by mouth once daily., Disp: , Rfl: magnesium oxide (Mag-Ox) 400 mg (241.3 mg magnesium) tablet, Take 1 tablet (400 mg) by mouth once daily., Disp: , Rfl: simvastatin (Zocor) 40 mg tablet, Take 1 tablet (40 mg) by mouth once daily., Disp: , Rfl: sertraline (Zoloft) 50 mg tablet, Take 1 tablet (50 mg) by mouth once daily., Disp: 30 tablet, Rfl:5 ALLERGIES: No Known Allergies SOCIAL HISTORY: reports that he has never smoked. He has never used smokeless tobacco. He reports that he does not drink alcohol and does not use drugs. FAMILY HISTORY: family history is not on file. PHYSICAL EXAM: VITALS: Vitals: 08/31/23 1110 BP: 122/68 Pulse: 68 Resp: 18 Temp: 37.1 C (98.8 F) TempSrc: Temporal Physical Examination: CONSTITUTIONAL: No acute distress VOICE: No hoarseness or other abnormality RESPIRATION: Breathing comfortably, no stridor CV: No clubbing/cyanosis/edema in hands EYES: EOM intact, sclera clear NEURO: Alert and oriented times 3, Cranial nerves II-XII grossly intact and symmetric bilaterally HEAD AND FACE: Symmetric facial features, no masses or lesions SALIVARY GLANDS: Parotid and submandibular glands normal bilaterally RIGHT EAR: Normal external ear and post auricular area, no visible lesions, external auditory canalpatent, tympanic membrane intact, no retraction, no signs of mass, effusion, or infection within the middle ear LEFT EAR: Normal external ear and post auricular area, no visible lesions, external auditory canal patent, tympanic membrane intact, no retraction, no signs of mass, effusion, or infection within themiddle ear NOSE: External nose midline, ORAL CAVITY/OROPHARYNX/LIPS: Normal mucous membranes, normal floor of mouth/tongue/OP, no masses orlesions PHARYNGEAL LEAHY: No masses or lesions NECK/LYMPH: No LAD, no thyroid masses, trachea midline SKIN: Neck and facial skin is without scar or injury PSYCH: Alert and oriented with appropriate mood and affect DATA REVIEWED: I reviewed the patient's prior VNG, which demonstrates a right-sided peripheral weakness. 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 PLAN: I discussed treatment options including continuing sertraline and increasing the dose or going backto the tricyclic antidepressant. He would like to increase the dose of sertraline. We will increasehis dose to 50 mg daily. I also discussed that he should continue the migraine vitamins of magnesium and add riboflavin. He will follow-up in October. Devon Dias MD documented in this [facility] Work Phone: [phone] History of Present illness Narrative* History of present illness from 03/17/2023: * Bhavna Roca is a 77-year-old man who presents today with significant disequilibrium. He has a history of bilateral cochlear implantation, most recently in 2009. 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 He has been previously seen and tesha luated by Dr. Riley. He has had a VNG from the [facility], which suggests significant right-sided vestibulopathy. A subsequent VNG here shows a significant right-sided weakness, but functional left-sided vestibular system. While MRI and CT are unavailable, reportedly the CT demonstrated right canal plugging. The MRI in the past was reportedly negative for any evidence of retrocochlear pathology. More recently, he was started on migraine therapy with nortriptyline approximately 1 year ago.He reports that he had significant improvement in his disequilibrium and balance with the nortriptyline. However, he reports that in the past several months he feels that his equilibrium is worse again. He reports that he has daily disequilibrium, which is worse with sudden movements and with bumpsin the car. He denies difficulty with visual symptoms or complex patterns. He denies any significant headache component. He does have significant difficulty walking in the dark. However, he does not report any oscillopsia. He also has peripheral neuropathy and has a history of retinal issues. * Interval History: * He reports persistent symptoms. He reports daily dizziness that is worsened with complex visual patterns and movements. * The patient s current medications, active allergies and list of medical problems were reviewed in the EHR and confirmed electronically. * Physical Examination: * CONSTITUTIONAL: No acute distress * VOICE: No hoarseness or other abnormality * RESPIRATION: Breathing comfortably, no stridor * CV: No clubbing/cyanosis/edema in hands * EYES: EOM intact, sclera clear * NEURO: Alert and oriented times 3, Cranial nerves II-XII grossly intact and symmetric bilaterally * HEAD AND FACE: Symmetric facial features, no masses or lesions * SALIVARY GLANDS: Parotid and submandibular glands normal bilaterally * RIGHT EAR: Normal external ear and post auricular area, no visible lesions, external auditory canalpatent, tympanic membrane intact, no retraction, no signs of mass, effusion, or infection within the middle ear * LEFT EAR: Normal external ear and post auricular area, no visible lesions, external auditory canal patent, tympanic membrane intact, no retraction, no signs of mass, effusion, or infection within themiddle ear * NOSE: External nose midline, * ORAL CAVITY/OROPHARYNX/LIPS: Normal mucous membranes, normal floor of mouth/tongue/OP, no masses orlesions * PHARYNGEAL LEAHY: No masses or lesions * NECK/LYMPH: No LAD, no thyroid masses, trachea midline * SKIN: Neck and facial skin is without scar or injury * PSYCH: Alert and oriented with appropriate mood and affect * Diagnostic testing: * I reviewed the patient's prior VNG, which demonstrates a right-sided peripheral weakness. * VNG: * Right warm: 18 degrees/second * Right cool: 10 degrees/second * Left warm: 27 degrees/second * Left cool: 23 degrees/second * Unilateral weakness: 28% in the right ear * Directional preponderance: 5% to the right * Fixation suppression: 0.17 * Impression: * Chronic disequilibrium --I suspect that she may have a component of vestibular migraine given his marked improvement with nortriptyline. I therefore do not recommend any weaning of the nortriptyline.He has some right sided weakness. It is also possible that he may have a component of PPPD. * Recommendation: * I recommend that he continue his nortriptyline. I do not recommend any MRI imaging given the reports of normal MRIs in the past as well as the fact that he has bilateral cochlear implants. Given his right sided weakness and possible PPPD, I recommend vestibular rehab. He will follow-up in 3 months to see if he has any improvement. * This note was created using speech recognition head refrigeration engineer software. Despite proofreading, several typographical errors might be present that might affect the meaning of the content. Please call with any questions. [facility] [address] [place] Work Phone: [phone] History of Present illness Narrative* History of present illness from 03/17/2023: * Bhavna Roca is a 77-year-old man who presents today with significant disequilibrium. He has a history of bilateral cochlear implantation, most recently in 2009. 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 He has been previously seen and tesha luated by Dr. Riley. He has had a VNG from the [facility], which suggests significant right-sided vestibulopathy. A subsequent VNG here shows a significant right-sided weakness, but functional left-sided vestibular system. While MRI and CT are unavailable, reportedly the CT demonstrated right canal plugging. The MRI in the past was reportedly negative for any evidence of retrocochlear pathology. More recently, he was started on migraine therapy with nortriptyline approximately 1 year ago.He reports that he had significant improvement in his disequilibrium and balance with the nortriptyline. However, he reports that in the past several months he feels that his equilibrium is worse again. He reports that he has daily disequilibrium, which is worse with sudden movements and with bumpsin the car. He denies difficulty with visual symptoms or complex patterns. He denies any significant headache component. He does have significant difficulty walking in the dark. However, he does not report any oscillopsia. He also has peripheral neuropathy and has a history of retinal issues. * Interval History: * He reports persistent symptoms. He reports daily dizziness that is worsened with complex visual patterns and movements. * The patient s current medications, active allergies and list of medical problems were reviewed in the EHR and confirmed electronically. * Physical Examination: * CONSTITUTIONAL: No acute distress * VOICE: No hoarseness or other abnormality * RESPIRATION: Breathing comfortably, no stridor * CV: No clubbing/cyanosis/edema in hands * EYES: EOM intact, sclera clear * NEURO: Alert and oriented times 3, Cranial nerves II-XII grossly intact and symmetric bilaterally * HEAD AND FACE: Symmetric facial features, no masses or lesions * SALIVARY GLANDS: Parotid and submandibular glands normal bilaterally * RIGHT EAR: Normal external ear and post auricular area, no visible lesions, external auditory canalpatent, tympanic membrane intact, no retraction, no signs of mass, effusion, or infection within the middle ear * LEFT EAR: Normal external ear and post auricular area, no visible lesions, external auditory canal patent, tympanic membrane intact, no retraction, no signs of mass, effusion, or infection within themiddle ear * NOSE: External nose midline, * ORAL CAVITY/OROPHARYNX/LIPS: Normal mucous membranes, normal floor of mouth/tongue/OP, no masses orlesions * PHARYNGEAL LEAHY: No masses or lesions * NECK/LYMPH: No LAD, no thyroid masses, trachea midline * SKIN: Neck and facial skin is without scar or injury * PSYCH: Alert and oriented with appropriate mood and affect * Diagnostic testing: * I reviewed the patient's prior VNG, which demonstrates a right-sided peripheral weakness. * VNG: * Right warm: 18 degrees/second * Right cool: 10 degrees/second * Left warm: 27 degrees/second * Left cool: 23 degrees/second * Unilateral weakness: 28% in the right ear * Directional preponderance: 5% to the right * Fixation suppression: 0.17 * Impression: * Chronic disequilibrium --I suspect that she may have a component of vestibular migraine given his marked improvement with nortriptyline. I therefore do not recommend any weaning of the nortriptyline.He has some right sided weakness. It is also possible that he may have a component of PPPD. * Recommendation: * I recommend that he continue his nortriptyline. I do not recommend any MRI imaging given the reports of normal MRIs in the past as well as the fact that he has bilateral cochlear implants. Given his right sided weakness and possible PPPD, I recommend vestibular rehab. He will follow-up in 3 months to see if he has any improvement. * This note was created using speech recognition head refrigeration engineer software. Despite proofreading, several typographical errors might be present that might affect the meaning of the content. Please call with any questions. [facility] Work Phone: [phone] History of Present illness Narrative* History of present illness from 03/17/2023: * Bhavna Roca is a 77-year-old man who presents today with significant disequilibrium. He has a history of bilateral cochlear implantation, most recently in 2009. 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 He has been previously seen and tesha luated by Dr. Riley. He has had a VNG from the [facility], which suggests significant right-sided vestibulopathy. A subsequent VNG here shows a significant right-sided weakness, but functional left-sided vestibular system. While MRI and CT are unavailable, reportedly the CT demonstrated right canal plugging. The MRI in the past was reportedly negative for any evidence of retrocochlear pathology. More recently, he was started on migraine therapy with nortriptyline approximately 1 year ago.He reports that he had significant improvement in his disequilibrium and balance with the nortriptyline. However, he reports that in the past several months he feels that his equilibrium is worse again. He reports that he has daily disequilibrium, which is worse with sudden movements and with bumpsin the car. He denies difficulty with visual symptoms or complex patterns. He denies any significant headache component. He does have significant difficulty walking in the dark. However, he does not report any oscillopsia. He also has peripheral neuropathy and has a history of retinal issues. * Interval History from 05/12/2023: * He reports persistent symptoms. He reports daily dizziness that is worsened with complex visual patterns and movements. * Interval History: He reports that he has been switched from nortryptilene to amytryptilene in the interim, with significant worsening in his symptoms. He still has daily dizziness that is worsened with complex visual patterns. He went back to vestibular therapy, who did not see any significant improvement from his last session. * The patient s current medications, active allergies and list of medical problems were reviewed in the EHR and confirmed electronically. * Physical Examination: * CONSTITUTIONAL: No acute distress * VOICE: No hoarseness or other abnormality * RESPIRATION: Breathing comfortably, no stridor * CV: No clubbing/cyanosis/edema in hands * EYES: EOM intact, sclera clear * NEURO: Alert and oriented times 3, Cranial nerves II-XII grossly intact and symmetric bilaterally * HEAD AND FACE: Symmetric facial features, no masses or lesions * SALIVARY GLANDS: Parotid and submandibular glands normal bilaterally * RIGHT EAR: Normal external ear and post auricular area, no visible lesions, external auditory canalpatent, tympanic membrane intact, no retraction, no signs of mass, effusion, or infection within the middle ear * LEFT EAR: Normal external ear and post auricular area, no visible lesions, external auditory canal patent, tympanic membrane intact, no retraction, no signs of mass, effusion, or infection within themiddle ear * NOSE: External nose midline, * ORAL CAVITY/OROPHARYNX/LIPS: Normal mucous membranes, normal floor of mouth/tongue/OP, no masses orlesions * PHARYNGEAL LEAHY: No masses or lesions * NECK/LYMPH: No LAD, no thyroid masses, trachea midline * SKIN: Neck and facial skin is without scar or injury * PSYCH: Alert and oriented with appropriate mood and affect * Diagnostic testing: * I reviewed the patient's prior VNG, which demonstrates a right-sided peripheral weakness. * VNG: * Right warm: 18 degrees/second * Right cool: 10 degrees/second * Left warm: 27 degrees/second * Left cool: 23 degrees/second * Unilateral weakness: 28% in the right ear * Directional preponderance: 5% to the right * Fixation suppression: 0.17 * Impression: * Chronic disequilibrium -- Based on his history, I suspect that he has PPPD. * Recommendation: * I discussed treatment options including continuing his trial of amytryptilene vs. weaning the amytryptilene to start sertraline. He would like to try the SSRI treatment. I discussed the risks of sideeffects of sertraline. He will wean off amytryptilene with half dose for the next week, then one week without amytryptilene. Then he will start sertraline 25 mg. He will follow-up in 3 months. * Devon Dias MD * This note was created using speech recognition head refrigeration engineer software. Despite proofreading, several typographical errors might be present that might affect the meaning of the content. Please call with any questions. [id number] [place] Work Phone: [phone] History of Present illness Narrative* History of present illness from 03/17/2023: * Bhavna Roca is a 77-year-old man who presents today with significant disequilibrium. He has a history of bilateral cochlear implantation, most recently in 2009. 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 He has been previously seen and tesha luated by Dr. Riley. He has had a VNG from the [facility], which suggests significant right-sided vestibulopathy. A subsequent VNG here shows a significant right-sided weakness, but functional left-sided vestibular system. While MRI and CT are unavailable, reportedly the CT demonstrated right canal plugging. The MRI in the past was reportedly negative for any evidence of retrocochlear pathology. More recently, he was started on migraine therapy with nortriptyline approximately 1 year ago.He reports that he had significant improvement in his disequilibrium and balance with the nortriptyline. However, he reports that in the past several months he feels that his equilibrium is worse again. He reports that he has daily disequilibrium, which is worse with sudden movements and with bumpsin the car. He denies difficulty with visual symptoms or complex patterns. He denies any significant headache component. He does have significant difficulty walking in the dark. However, he does not report any oscillopsia. He also has peripheral neuropathy and has a history of retinal issues. * Interval History from 05/12/2023: * He reports persistent symptoms. He reports daily dizziness that is worsened with complex visual patterns and movements. * Interval History: He reports that he has been switched from nortryptilene to amytryptilene in the interim, with significant worsening in his symptoms. He still has daily dizziness that is worsened with complex visual patterns. He went back to vestibular therapy, who did not see any significant improvement from his last session. * The patient s current medications, active allergies and list of medical problems were reviewed in the EHR and confirmed electronically. * Physical Examination: * CONSTITUTIONAL: No acute distress * VOICE: No hoarseness or other abnormality * RESPIRATION: Breathing comfortably, no stridor * CV: No clubbing/cyanosis/edema in hands * EYES: EOM intact, sclera clear * NEURO: Alert and oriented times 3, Cranial nerves II-XII grossly intact and symmetric bilaterally * HEAD AND FACE: Symmetric facial features, no masses or lesions * SALIVARY GLANDS: Parotid and submandibular glands normal bilaterally * RIGHT EAR: Normal external ear and post auricular area, no visible lesions, external auditory canalpatent, tympanic membrane intact, no retraction, no signs of mass, effusion, or infection within the middle ear * LEFT EAR: Normal external ear and post auricular area, no visible lesions, external auditory canal patent, tympanic membrane intact, no retraction, no signs of mass, effusion, or infection within themiddle ear * NOSE: External nose midline, * ORAL CAVITY/OROPHARYNX/LIPS: Normal mucous membranes, normal floor of mouth/tongue/OP, no masses orlesions * PHARYNGEAL LEAHY: No masses or lesions * NECK/LYMPH: No LAD, no thyroid masses, trachea midline * SKIN: Neck and facial skin is without scar or injury * PSYCH: Alert and oriented with appropriate mood and affect * Diagnostic testing: * I reviewed the patient's prior VNG, which demonstrates a right-sided peripheral weakness. * VNG: * Right warm: 18 degrees/second * Right cool: 10 degrees/second * Left warm: 27 degrees/second * Left cool: 23 degrees/second * Unilateral weakness: 28% in the right ear * Directional preponderance: 5% to the right * Fixation suppression: 0.17 * Impression: * Chronic disequilibrium -- Based on his history, I suspect that he has PPPD. * Recommendation: * I discussed treatment options including continuing his trial of amytryptilene vs. weaning the amytryptilene to start sertraline. He would like to try the SSRI treatment. I discussed the risks of sideeffects of sertraline. He will wean off amytryptilene with half dose for the next week, then one week without amytryptilene. Then he will start sertraline 25 mg. He will follow-up in 3 months. * Devon Dias MD * This note was created using speech recognition head refrigeration engineer software. Despite proofreading, several typographical errors might be present that might affect the meaning of the content. Please call with any questions. [facility] Work Phone: evaluation noteNo assessment information available [facility] Work Phone: Evaluation note* Diagnosis Persistent postural-perceptual dizziness- Primary documented in this encounter [facility] Work Phone: Evaluation note* Diagnosis Peripheral vestibulopathy of right ear Persistent postural-perceptual dizziness documented in this encounter [facility] Work Phone: Evaluation note* Diagnosis Dizziness and giddiness documented in this encounter [facility] Work Phone: Evaluation note* Diagnosis Dislocation of intraocular lens, initial encounter- Primary Phacodonesis Other disorders of lens Pseudophakia, left eye Lens replaced by other means Retinal detachment, right Unspecified retinal detachment Dislocation of intraocular lens, initial encounter [facility] Diagnosis Aftercare following surgery of a sensory organ- Primary Aftercare following surgery of the sense organs, NEC [facility] Diagnosis Aftercare following surgery of a sensory organ- Primary Aftercare following surgery of the sense organs, NEC [facility] Diagnosis Aftercare following surgery of a sensory organ- Primary Aftercare following surgery of the sense organs, NEC Dislocation of intraocular lens, initial encounter Diabetic macular edema [facility] Diagnosis Dizziness and giddiness documented in this encounter [facility] Work Phone: Evaluation note* Diagnosis 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 Dizziness and giddiness Other polyneuropathy Persistent postural-perceptual dizziness Peripheral vestibulopathy of right ear documented in this encounter [facility] Work Phone: Evaluation note* Diagnosis 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 Dizziness and giddiness Other polyneuropathy documented in this encounter [facility] Work Phone: Evaluation note* Diagnosis Diaphragm dysfunction- Primary Shortness of breath documented in this encounter [facility] Work Phone: Evaluation note* Diagnosis Diaphragm dysfunction Diaphragm paralysis- Primary Disorders of diaphragm Diaphragm paralysis Disorders of diaphragm documented in this encounter [facility] Work Phone: Evaluation note* Diagnosis Diaphragm dysfunction Diaphragm paralysis Disorders of diaphragm documented in this encounter [facility] Work Phone: Evaluation note* Diagnosis Diaphragm paralysis- Primary Disorders of diaphragm Diaphragm paralysis Disorders of diaphragm Acute post-operative pain Diaphragm dysfunction documented in this encounter [facility] Work Phone: Evaluation note* Diagnosis Diaphragm dysfunction- Primary documented in this encounter [facility] Work Phone: Evaluation note* Diagnosis Shortness of breath- Primary Constrictive pericarditis Constrictive pericarditis- Primary [facility] Constrictive pericarditis- Primary Constrictive pericarditis [facility] History of present illness: * Bhavna Roca is a 77-year-old man who presents today with significant disequilibrium. He has a history of bilateral cochlear implantation, most recently in 2009. 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 He has been previously seen and tesha luated by Dr. Riley. He has had a VNG from the [facility], which suggests significant right-sided vestibulopathy. A subsequent VNG here shows a significant right-sided weakness, but functional left-sided vestibular system. While MRI and CT are unavailable, reportedly the CT demonstrated right canal plugging. The MRI in the past was reportedly negative for any evidence of retrocochlear pathology. More recently, he was started on migraine therapy with nortriptyline approximately 1 year ago.He reports that he had significant improvement in his disequilibrium and balance with the nortriptyline. However, he reports that in the past several months he feels that his equilibrium is worse again. He reports that he has daily disequilibrium, which is worse with sudden movements and with bumpsin the car. He denies difficulty with visual symptoms or complex patterns. He denies any significant headache component. He does have significant difficulty walking in the dark. However, he does not report any oscillopsia. He also has peripheral neuropathy and has a history of retinal issues. * The patient s current medications, active allergies and list of medical problems were reviewed in the EHR and confirmed electronically. * Physical Examination: * CONSTITUTIONAL: No acute distress * VOICE: No hoarseness or other abnormality * RESPIRATION: Breathing comfortably, no stridor * CV: No clubbing/cyanosis/edema in hands * EYES: EOM intact, sclera clear * NEURO: Alert and oriented times 3, Cranial nerves II-XII grossly intact and symmetric bilaterally * HEAD AND FACE: Symmetric facial features, no masses or lesions * SALIVARY GLANDS: Parotid and submandibular glands normal bilaterally * RIGHT EAR: Normal external ear and post auricular area, no visible lesions, external auditory canalpatent, tympanic membrane intact, no retraction, no signs of mass, effusion, or infection within the middle ear * LEFT EAR: Normal external ear and post auricular area, no visible lesions, external auditory canal patent, tympanic membrane intact, no retraction, no signs of mass, effusion, or infection within themiddle ear * Head thrust test: Catch-up saccades going to the left. * Broad Top-Hallpike test: Normal * No dysdiadochokinesia * Normal [id number] testing * Normal gait * Slight sway with Romberg, but no significant following. * NOSE: External nose midline, * ORAL CAVITY/OROPHARYNX/LIPS: Normal mucous membranes, normal floor of mouth/tongue/OP, no masses orlesions * PHARYNGEAL LEAHY: No masses or lesions * NECK/LYMPH: No LAD, no thyroid masses, trachea midline * SKIN: Neck and facial skin is without scar or injury * PSYCH: Alert and oriented with appropriate mood and affect * Diagnostic testing: * I reviewed the patient's prior VNG, which demonstrates a right-sided peripheral weakness. * Impression: * Chronic disequilibrium --I suspect that she may have a component of vestibular migraine given his marked improvement with nortriptyline. I therefore do not recommend any weaning of the nortriptyline.However, he now has left-sided catch-up saccades with the head thrust test. This would suggest a left peripheral vestibular weakness. His prior testing indicated a right peripheral vestibulopathy. I am concerned that he may be developing bilateral vestibulopathy. * Recommendation: * I recommend that he continue his nortriptyline. I do not recommend any MRI imaging given the reports of normal MRIs in the past as well as the fact that he has bilateral cochlear implants. I recommend vestibular testing with a VNG and a V hit to determine if he does not fact have left-sided vestibular weakness. I discussed that if he has bilateral vestibulopathy, unfortunately there is not many treatment options. He has had vestibular therapy in the past without significant improvement. If he has new left-sided vestibular weakness, we may consider retrying vestibular therapy and abimael chi. He will follow-up in 6 to 8 weeks after vestibular testing. * This note was created using speech recognition head refrigeration engineer software. Despite proofreading, several typographical errors might be present that might affect the meaning of the content. Please call with any questions. [id number] [place] Work Phone: Hospital Discharge instructionsAmbulatory Orders* Cardiology Location: None Selected [facility] Work Phone: Reason for referral (narrative)* Consultation (Emergency) - Pending Review Specialty Diagnoses / Procedures Referred By Stacie arellano Referred To Contact Physical Therapy Diagnoses Cochlear implant in place D[place] [address] [address] [place] [id number] Referral ID Status Reason Start Date Expiration Date Visits Requested Visits Authorized [id number] Pending Review Specialty Services Required 07/30/2024 07/30/[address] [facility] Work Phone: Reason for referral (narrative)No [facility] for [facility] Reason for visit Narrative* Imaging (Routine) - Authorized Specialty Diagnoses / Procedures Referred By Stacie arellano Referred To Contact Radiology Diagnoses Diaphragm dysfunction Procedures XR chest 2 views Марина Moeller, ROBER-LANCE [address] [address] Bol[address] Department of Surgery-[place] [id number] Phone: tel: fax: Referral ID Status Reason Start Date Expiration Date Visits Requested Visits Authorized [id number] Authorized Perform Procedure 02/05/2025 02/05/[address] [facility] Work Phone: Reimov for visit Narrative* Imaging (Routine) - Authorized Specialty Diagnoses / Procedures Referred By Stacie arellano Referred To Contact Radiology Diagnoses Diaphragm dysfunction Procedures FL sniff test CapayМарина hopper, MANAGER EVENT-ADVANCED PRACTICE PROVIDER [address] [facility] [place] [address] Phone: tel: fax: Referral ID Status Reason Start Date Expiration Date Visits Requested Visits Authorized [id number] Authorized Perform Procedure 02/05/2025 02/05/[address] [facility] Work Phone: Refqol for visit Narrative* Auth/Cert Specialty Diagnoses / Procedures Referred By Stacie arellano Referred To Contact Diagnoses Diaphragm paralysis Diaphragm paralysis [J98.6] Procedures ME OPEN IMPLANTATION ROBERTO NEUROMUSCULAR ME ELEC SANDY IMPLT NPGT CPLX SP/PN PRGRMG ME UNLISTED PROCEDURE DIAPHRAGM INSERTION, DIAPHRAGMATIC PACEMAKER, LAPAROSCOPIC INSERTION, DIAPHRAGMATIC PACEMAKER, LAPAROSCOPIC INSERTION, DIAPHRAGMATIC PACEMAKER, [place] [address] [facility] [place] [address] Phone: tel: fax: [place] [place] [address] [place] [address] fax: Referral ID Status Reason Start Date Expiration Date Visits Re quested Visits Authorized [id number] [address] 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] Procedures Right heart cath Sergio Pino MD [address] [place] [address] Phone: tel: fax: [facility] [address] [place] [address] Phone: tel: Referral ID Status Reason Start Date Expiration Date Visits Re quested Visits Authorized [id number] 1 1 [facility] Health Summary Purpose Family History No Family History Records FoundUnknown Family Member Name Dates Details Heart trouble: Mother Status:Active Family history of cancer: Fa ther(V16.9, Z80.9) Status:Active Unknown Family Member Name Dates Details Family history of cancer: Fa ther(V16.9, Z80.9) Status:Active Heart trouble: Mother Status:Active Unknown Family Member Name Dates Details Family history of cancer: Fa ther(V16.9, Z80.9) Status:Active Heart trouble: Mother Status:Active Unknown Family Member Name Dates Details Family history of cancer: Fa ther(V16.9, Z80.9) Status:Active Heart trouble: Mother Status:Active Unknown Family Member Name Dates Details Family history of cancer: Fa ther(V16.9, Z80.9) Status:Active Heart trouble: Mother Status:Active Unknown Family Member Name Dates Details Family history of cancer: Fa ther(V16.9, Z80.9) Status:Active Heart trouble: Mother Status:Active Unknown Family Member Name Dates Details Family history of cancer: Fa ther(V16.9, Z80.9) Status:Active Heart trouble: Mother Status:Active Relationship Condition Age at Onset Recorded Date/T kelly mother Cardiac disease Unknown Hypertension Unknown father Malignant neoplasm of prostate Unknown Advance Directives No Advanced Directives Records Found Advance Directive Response Recorded Date/ Time Advance Directives Yes December 06, 2016 6:01am Living Will Yes May 16, 2021 4:03pm Power of Poultry Slaughterer Yes May 16 4:03pm Advance Directive Response Recorded Date/ Time Advance Directives Yes December 06, 2016 5:01am Living Will Yes May 16, 2021 3:03pm Power of Poultry Slaughterer Yes May 16 3:03pm Advance Directive Response Recorded Date/ Time Living Will Yes August 07, 2024 12:38am Power of Poultry Slaughterer Yes July 12:38am Living Will Yes November 06 024 7:23pm Power of Poultry Slaughterer Yes November 06, 2024 7:23pm Name of Medical Power of Poultry Slaughterer Maya roca November 06, 2024 7:23pm Advance Directives Yes December 06, 2016 6:01am Advance Directive Response Recorded Date/ Time Living Will Yes August 07, 2024 12:38am Do you have a Healthcare Power of Poultry Slaughterer? Yes August 07, 2024 12:38am Living Will Yes November 06 7:23pm Do you have a Healthcare Power of Poultry Slaughterer? Yes November 06, 2024 7:23pm Name of Medical Power of Poultry Slaughterer Maya roca November 06, 2024 7:23pm Advance Directives Yes December 06, 2016 6:01am Date Activated Date Inactivated Comments 02/19/2025 2:40 PM Question Answer Comments Plan of Care: Code Status Discussion Completed Decision Maker: Patient Date Activated Date Inactivated Comments 02/19/2025 2:40 PM Question Answer Comments Plan of Care: Code Status Discussion Completed Decision Maker: Patient Advance Directive Response Recorded Date/ Time Advance Directives Yes December 06, 2016 6:01am Date Activated Date Inactivated Comments 05/06/2025 6:37 AM 05/06/2025 11:00 AM Chief Complaint Chief Complaint Description Start Date neck pain Preliminary chief co mplaint data, not yet signed by the author as of Instructions Instruction Description Start Date Patient advised to follow-up with Primary Care Physician for BMI management. Assessments There may be information available, but it has not been provided by the sender. Review of System There may be information available, but it has not been provided by the sender. History of Present Illness There may be information available, but it has not been provided by the sender. Reason for Referral Specialty Diagnoses / Procedures Referred By Contac t Referred To Contact Diagnoses Dizziness and giddiness Procedures ECG 12 lead (Ancillary Performed) Devon Dias MD [address] [facility] [employer] [facility] 1, [address] [address] Referral ID Status Reason Start Date Expiration Date V isits Requested Visits Authorized [id number] Authorized 03/02/2024 03/02/2025 1 1 Chief Complaint and Reason for Visit Chief Complaint Admit Date E-ORDER November 01, 2024 11:05am SOB November 06, 2024 6:16pm 3 M FU November 08, 2024 8:09am DYSPNEA, SOB November 08, 2024 8:50am R06.02 - Shortness of breath November 182023 6:59am Shortness of breath January 22, 2025 11:0 2am DIAPHRAM Dyspnea, unspecified January 1:07pm Reason for Visit Admit Date Coronary artery disease November 08, 2 024 8:09am Hypercholesterolemia November 08, 2024 8:09am Pericardial effusion without cardiac raygoza ponade November 08, 2024 8:09am Pericarditis November 08, 2024 8:09am Shortness of breath November 08, 2024 8:09am Hypertension November 08, 2024 8:09am Chief Complaint Admit Date Shortness of breath January 22, 2025 11:0 2am DIAPHRAM Dyspnea, unspecified January 1:07pm 4 M FU March 21, 2025 7:59am EORDER- CXR April 01, 2025 12:47 pm Shortness of breath April 08, 2025 9:56a m Shortness of breath April 09, 2025 9:50a m Reason for Visit Admit Date Coronary artery disease March 21, 2025 7: 59am Hypercholesterolemia March 21, 2025 7:59a m Pericarditis March 21, 2025 7:59am Shortness of breath March 21, 2025 7:59am Hypertension March 21, 2025 7:59am Pericarditis April 09, 2025 9:50a m Shortness of breath April 09, 2025 9:50a m Additional Source Comments (unrecognized sect ion and content) No Status Records FoundNo Status Records FoundNo Status Records FoundNo Status Records FoundNo Status Records FoundNo Status Records FoundNo Status Records FoundNo Status Records FoundNo Status Records FoundNo Status Records FoundNo Status Records FoundNo Status Records FoundNo Status Records FoundNo Status Records FoundNo Status Records Found INFORMATION SOURCE (unrecogn ized section and content) DATE CREATED AUTHOR 05/15/2018 [facility] DATE CREATED AUTHOR AUTHOR'S ORGANIZ ATION 05/18/2018 [facility] DATE CREATED AUTHOR AUTHOR'S ORGANIZ ATION 06/20/2018 [facility] DATE CREATED AUTHOR AUTHOR'S ORGANIZ ATION 06/14/2020 [facility] DATE CREATED AUTHOR AUTHOR'S ORGANIZ ATION 06/21/2020 [facility] DATE CREATED AUTHOR AUTHOR'S ORGANIZ ATION 05/10/2023 [facility] DATE CREATED AUTHOR AUTHOR'S ORGANIZ ATION 05/13/2023 [facility] DATE CREATED AUTHOR AUTHOR'S ORGANIZ ATION 07/28/2023 [facility] DATE CREATED AUTHOR AUTHOR'S ORGANIZ ATION 10/04/2023 [facility] ([place]) DATE CREATED AUTHOR AUTHOR'S ORGANIZ ATION 04/25/2024 [facility] DATE CREATED AUTHOR AUTHOR'S ORGANIZ ATION 06/10/2024 [facility] DATE CREATED AUTHOR AUTHOR'S ORGANIZ ATION 02/21/2025 [facility] DATE CREATED AUTHOR AUTHOR'S ORGANIZ ATION 03/20/2025 [facility] DATE CREATED AUTHOR AUTHOR'S ORGANIZ ATION 05/08/2025 [facility] DATE CREATED AUTHOR AUTHOR'S ORGANIZ ATION 05/15/2025 [facility] Reason for Visit (unrecogniz ed section and content) Reason For Visit Description New - 1st visit with practice Preliminary reason f or visit data, not yet signed by the author as of neck pain Reason Comments Follow-up Pt states not feelin g well Reason Comments Follow-up Reason Comments Follow-up Reason Comments New Patient Specialty Diagnoses / Procedures Referred By Contac t Referred To Contact Ophthalmology Diagnoses Dislocation of intraocular lens, initial encounter Sierra Davidson MD [address] [place] [address] OhMassimo jimenez MD [address] [place] [address] Referral ID Status Reason Start Date Expiration Date V isits Requested Visits Authorized [id number] Pending Review 03/08/2024 04/02/2025 1 1 Specialty Diagnoses / Procedures Referred By Contac t Referred To Contact Diagnoses Dislocation of intraocular lens, initial encounter Dislocation of intraocular lens, initial encounter [T85.22XA] Procedures ME VITRECTOMY,MECHANICAL ME EXCHANGE LENS PROSTHESIS ME SUTURE IRIS/CILIARY BODY VITRECTOMY MECHANICAL PARS PLANA APPROACH EXCHANGE IOL SUTURE IRIS CILIARY BODY (MCCANNEL SUTURE) Ohr, Massimo Wharton MD [address] [facility] [address] [place] [address] [facility] [address] [place] [address] Referral ID Status Reason Start Date Expiration Date Visits Re quested Visits Authorized [id number] 1 1 Reason Comments Post Op Visit Reason Comments Follow-up Bilateral ear evalua tion. Reason Comments New Patient Hypertension Hyperlipidemia Coronary Artery Disease Specialty Diagnoses / Procedures Referred By Contac t Referred To Contact Cardiology Diagnoses Shortness of breath Acute nonspecific idiopathic pericarditis Procedures ME OFFICE/OP CONSLTJ NEW/EST PT MOD MDM 40 MINUTES Jana Blake MD [address] [facility] [address] [place] [address] Phone: tel: fax: [address] [address] Phone: tel: fax: Referral ID Status Reason Start Date Expiration Date Visits Re quested Visits Authorized [id number] Closed 04/16/2025 04/16/2026 1 1 Goals (unrecognized section and content) Goals may be documented in a n alternate sectionGoals may be documented in an alternate sectionGoals may be documented in an alternate sectionGoals may be documented in an alternate sectionGoals may be documented in an alternate sectionGoals may be documented in an alternate sectionGoals may be documented in an alternate sectionGoals may be documented in an alternate sectionGoals may be documented in an alternate sectionGoals may be documented in an alternate sectionGoals may be documented in an alternate sectionGoals may be documented in an alternate section Care Teams (unrecognized sec tion and content) Team Status: Active Member Role Status Dates Dr. Alberto Wilhelm MD Family Provider Active Daisy Philippe , Primary Care Provider Active Team Status: Inactive Member Role Status Dates Daisy Philippe DO Primary Care Provider, Attending Provider Active Dr. Alfredo Vasquez MD Other Provider Active Team Status: Inactive Member Role Status Dates Daisy M Denae , DO Primary Care Provider Active Dr. Alfredo Vasquez MD Attending Provider Active Mechanical Process Engineer Relationship Specialty Start Date End Date Alfredo Vasquez MD [address] [place] [address] PCP - General Family Medicine 03/06/24 Mechanical Process Engineer Relationship Specialty Start Date End Date Alfredo Vasquez MD [address] [place] [address] PCP - General Family Medicine 03/06/24 Mechanical Process Engineer Relationship Specialty Start Date End Date Alfredo Vasquez MD [address] [place] [address] PCP - General Family Medicine 03/06/24 Mechanical Process Engineer Relationship Specialty Start Date End Date Alfredo Vasquez MD [address] [place] [address] PCP - General Family Medicine 03/06/24 Mechanical Process Engineer Relationship Specialty Start Date End Date Alfredo Vasquez MD [address] [place] [address] PCP - General Family Medicine 07/30/24 Mechanical Process Engineer Relationship Specialty Start Date End Date Alfredo Vasquez MD [address] [place] [address] PCP - General Family Medicine 07/30/24 Mechanical Process Engineer Relationship Specialty Start Date End Date Alfredo Vasquez MD [address] [place] [address] PCP - General Family Medicine 07/30/24 Mechanical Process Engineer Relationship Specialty Start Date End Date Alfredo Vasquez MD [address] [place] [address] PCP - General Family Medicine 07/30/24 Team Status: Active Member Role Status Dates Dr. Alfredo Vasquez MD Primary Care Provider Active Team Status: Inactive Member Role Status Dates Dr. Alfredo Vasquez MD Primary Care Provider Active Start: October 22, 2024 End: October 22, 2024 Dr. Alfredo Vasquez MD Attending Provider Active Start: October 22, 2024 End: October 22, 2024 Dr. Alfredo Vasquez MD Referring Provider Active Start: October 22, 2024 End: October 22, 2024 Team Status: Inactive Member Role Status Dates Dr. Alfredo Vasquez MD Primary Care Provider Active Start: November 01, 2024 End: November 01, 2024 Almaz ALEMAN PA Attending Provider Active Start: November 01, 2024 End: November 01, 2024 Almaz ALEMAN PA Referring Provider Active Start: November 01, 2024 End: November 01, 2024 Team Status: Inactive Member Role Status Dates Dr. Alfredo Vasquez MD Primary Care Provider Active Start: November 06, 2024 End: November 06, 2024 Dr. Delmar Wild MD Attending Provider Active Sta rt: November 06, 2024 End: November 06, 2024 Dr. Delmar Wild MD Emergency Provider Active Sta rt: November 06, 2024 End: November 06, 2024 Team Status: Inactive Member Role Status Dates Dr. Alfredo Vasquez MD Primary Care Provider Active Start: November 08, 2024 End: November 08, 2024 Dr. Alfredo Vasquez MD Referring Provider Active Start: November 08, 2024 End: November 08, 2024 Almaz ALEMAN PA Attending Provider Active Start: November 08, 2024 End: November 08, 2024 Team Status: Inactive Member Role Status Dates Dr. Alfredo Vasquez MD Primary Care Provider Active Start: November 08, 2024 End: November 08, 2024 Almaz ALEMAN PA Attending Provider Active Start: November 08, 2024 End: November 08, 2024 Almaz ALEMAN PA Referring Provider Active Start: November 08, 2024 End: November 08, 2024 Team Status: Active Member Role Status Dates Dr. Alfredo Vasquez MD Primary Care Provider Active Start: November 08, 2024 Dr. Zaki Chávez MD Attending Provider Active S tart: November 08, 2024 Team Status: Inactive Member Role Status Dates Dr. Alfredo Vasquez MD Primary Care Provider Active Start: November 18, 2024 End: November 18, 2024 Almaz ALEMAN PA Attending Provider Active Start: November 18, 2024 End: November 18, 2024 Almaz ALEMAN PA Referring Provider Active Start: November 18, 2024 End: November 18, 2024 Team Status: Inactive Member Role Status Dates Dr. Alfredo Vasquez MD Primary Care Provider Active Start: January 22, 2025 End: January 22, 2025 Dr. Lm Hill MD Attending Provider Active Start: January 22, 2025 End: January 22, 2025 Dr. Lm Hill MD Referring Provider Active Start: January 22, 2025 End: January 22, 2025 Team Status: Active Member Role Status Dates Dr. Alfredo Vasquez MD Primary Care Provider Active Start: January 28, 2025 Dr. Lm Hill MD Attending Provider Active Start: January 28, 2025 Dr. Lm Hill MD Referring Provider Active Start: January 28, 2025 Team Status: Active Member Role Status Dates Dr. Alfredo Vasquez MD Primary Care Provider Active Start: January 31, 2025 Dr. Alfredo Vasquez MD Attending Provider Active Start: January 31, 2025 Dr. Alfredo Vasquez MD Referring Provider Active Start: January 31, 2025 Team Status: Inactive Member Role Status Dates Dr. Alfredo Vasquez MD Primary Care Provider Active Start: January 28, 2025 End: January 28, 2025 Dr. Lm Hill MD Attending Provider Active Start: January 28, 2025 End: January 28, 2025 Dr. Lm Hill MD Referring Provider Active Start: January 28, 2025 End: January 28, 2025 Team Status: Inactive Member Role Status Dates Dr. Alfredo Vasquez MD Primary Care Provider Active Start: January 31, 2025 End: January 31, 2025 Dr. Alfredo Vasquez MD Attending Provider Active Start: January 31, 2025 End: January 31, 2025 Dr. Alfredo Vasquez MD Referring Provider Active Start: January 31, 2025 End: January 31, 2025 Mechanical Process Engineer Relationship Specialty Start Date End Date Alfredo Vasquez MD [address] [place] [address] PCP - General Family Medicine 07/30/24 Mechanical Process Engineer Relationship Specialty Start Date End Date Alfredo Vasquez MD [address] [place], [place] [address] PCP - [facility] Medicine 07/30/24 Team Status: Inactive Member Role Status Dates Dr. Alfredo Vasquez MD Primary Care Provider Active Start: March 21, 2025 End: March 21, 2025 Dr. Alfredo Vasquez MD Referring Provider Active Start: March 21, 2025 End: March 21, 2025 Dr. Jana Blake MD Attending Provider Active Start: March 21, 2025 End: March 21, 2025 Team Status: Active Member Role Status Dates Dr. Alfredo Vasquez MD Primary Care Provider Active Start: April 01, 2025 Sonny Galalrdo INSURANCE VERIFICATION CLERK, INSURANCE VERIFICATION CLERK-C Attending Provider Active Start: April 01, 2025 Sonny Gallardo INSURANCE VERIFICATION CLERK, INSURANCE VERIFICATION CLERK-C Referring Provider Active Start: April 01, 2025 Team Status: Active Member Role Status Dates Dr. Alfredo Vasquez MD Primary Care Provider Active Start: April 08, 2025 Sonny Gallardo INSURANCE VERIFICATION CLERK, INSURANCE VERIFICATION CLERK-C Attending Provider Active Start: April 08, 2025 Sonny Gallardo INSURANCE VERIFICATION CLERK, INSURANCE VERIFICATION CLERK-C Referring Provider Active Start: April 08, 2025 Team Status: Active Member Role Status Dates Dr. Alfredo Vasquez MD Primary Care Provider Active Start: April 08, 2025 Dr. Zaki Chávez MD Attending Provider Active S tart: April 08, 2025 Team Status: Inactive Member Role Status Dates Dr. Alfredo Vasquez MD Primary Care Provider Active Start: April 09, 2025 End: April 09, 2025 Dr. Alfredo Vasquez MD Referring Provider Active Start: April 09, 2025 End: April 09, 2025 Dr. Jana Blake MD Attending Provider Active Start: April 09, 2025 End: April 09, 2025 Team Status: Inactive Member Role Status Dates Dr. Alfredo Vasquez MD Primary Care Provider Active Start: April 01, 2025 End: April 01, 2025 Sonny Gallardo INSURANCE VERIFICATION CLERK, INSURANCE VERIFICATION CLERK-C Attending Provider Active Start: April 01, 2025 End: April 01, 2025 Sonny Gallardo INSURANCE VERIFICATION CLERK, INSURANCE VERIFICATION CLERK-C Referring Provider Active Start: April 01, 2025 End: April 01, 2025 Team Status: Inactive Member Role Status Dates Dr. Alfredo Vasquez MD Primary Care Provider Active Start: April 08, 2025 End: April 08, 2025 Sonny Gallardo INSURANCE VERIFICATION CLERK, INSURANCE VERIFICATION CLERK-C Attending Provider Active Start: April 08, 2025 End: April 08, 2025 Sonny Gallardo INSURANCE VERIFICATION CLERK, INSURANCE VERIFICATION CLERK-C Referring Provider Active Start: April 08, 2025 End: April 08, 2025 Team Status: Inactive Member Role Status Dates Dr. Alfredo Vasquez MD Primary Care Provider Active Start: April 24, 2025 End: April 24, 2025 RAMOS SAUER Attending Provider Active S tart: April 24, 2025 End: April 24, 2025 Team Status: Inactive Member Role Status Dates Dr. Alfredo Vasquez MD Primary Care Provider Active Start: May 08, 2025 End: May 08, 2025 Dr. Alfredo Vasquez MD Attending Provider Active Start: May 08, 2025 End: May 08, 2025 Dr. Alfredo Vasquez MD Referring Provider Active Start: May 08, 2025 End: May 08, 2025 Scheduled Active and Recently Administ ered Medications (unrecognized section and content) Medication Order 03/23/2024 03/24/2024 03/25/2024 BUPivacaine/lidocaine/hyaluronida se 10 mL syringe 10 mL 10 mL, Retro/Leola bulbar, SEE ADMIN INSTRUCTIONS, 1 dose, Starting on Mon03/25/24 at 0646, Until Mon03/25/24 at 1216, Inject in right eye once., Pre-op/Pre-Proc ceFAZolin (ANCEF) 100 MG/0.5 ML 1 mL injection 100 mg 100 mg (0.5 mL), Right Eye Subconjunctival, ONCE, 1 dose, On Mon03/25/24 at 0700, Single use only., Intra-op/Intra-Proc 0700 (Canceled Entry - Provider: System Discharge - Comment: Automatically canceled at discontinue of medication order) Cyclopentolate (CYCLOGYL) 1 % ophthalmic solution 1 drop (COMPLETED) 1 drop, Right Eye, SEE ADMIN INSTRUCTIONS, 3 doses, Starting on 03/25/24 at 0646, Until Mon03/25/24 at 0723, Administer 1 drop topically to right eye every 5 minutes for 3 doses starting 30 minutes preprocedure., Pre-op/Pre-Proc 0713 (Given - Provid er: Rossy Epperson RN)0718 (Given - Provider: Rossy Epperson RN)07 (Given - Provider: Rossy Epperson RN) dexAMETHasone (DECADRON) injection 2 mg 2 mg, Subconjunctival, SEE ADMIN INSTRUCTIONS, 1 dose, Starting on Mon03/25/24 at 0646, Until Mon03/25/24 at 1216, Physician to inject into RIGHT eye using SUBCONJUNCTIVAL route., Intra-op/Intra-Proc Phenylephrine (MYDFRIN) 2.5 % ophthalmic solution 1 drop (COMPLETED) 1 drop, Right Eye, SEE ADMIN INSTRUCTIONS, 3 doses, Starting on 03/25/24 at 0646, Until Mon03/25/24 at 0723, Administer 1 drop topically to right eye every 5 minutes for 3 doses starting 30 minutes preprocedure., Pre-op/Pre-Proc 0713 (Given - Provid er: Rsosy Epperson RN)0718 (Given - Provider: Rossy Epperson RN)07 (Given - Provider: Rossy Epperson RN) tropicamide (MYDRIACYL) 1 % ophthalmic solution 1 drop (COMPLETED) 1 drop, Right Eye, SEE ADMIN INSTRUCTIONS, 3 doses, Starting on Mon03/25/24 at 0646, Until Mon03/25/24 at 0723, Administer 1 drop topically to right eye every 5 minutes for 3 doses starting 30 minutes preprocedure., Pre-op/Pre-Proc 0713 (Given - Provid er: Rossy Epperson RN)0718 (Given - Provider: Rossy Epperson RN)0723 (Given - Provider: Rossy Epperson RN) PRN Medication Order 03/23/2024 03/24/2024 03/25/2024 Acetaminophen (TYLENOL) tablet 650 mg 650 mg, Oral, EVERY 4 HOURS NEEDED, Starting on Mon03/25/24 at 0946, Until Mon03/25/24 at 1216, Mild Pain, Maximum dose of acetaminophen is 4000 mg from all sources in 24 hours., Post-op/Post-Proc balanced salt solution (BSS) ophthalmic irrigation (CANCELED) NEEDED, Starting on Mon03/25/24 at 0812, Until Mon03/25/24 at 0948, Intra-op/Intra-Proc 811 (Given - Provid er: Massimo Vizcarra MD) balanced salts (DACRIOSE) ophthalmic irrigation (CANCELED) NEEDED, Starting on Mon03/25/24 at 0812, Until Mon03/25/24 at 0948, Intra-op/Intra-Proc 811 (Given - Provid er: Massimo Vizcarra MD) BUPivacaine/lidocaine/hyaluronida se 10 mL syringe (CANCELED) NEEDED, Starting on Mon03/25/24 at 0812, Until Mon03/25/24 at 0948, Intra-op/Intra-Proc 811 (Given - Provid er: Howard Sarabia MD) cefUROxime 1 MG/0.1 ML 1 mL vial (CANCELED) NEEDED, Starting on Mon03/25/24 at 0943, Until Mon03/25/24 at 0948, Intra-op/Intra-Proc 0943 (Given - Provid er: Massimo Vizcarra MD - Comment: introcular) tobramycin-dexAMETHasone (TOBRADEX) ophthalmic ointment (CANCELED) NEEDED, Starting on Mon03/25/24 at 0946, Until Mon03/25/24 at 0948, Intra-op/Intra-Proc 0946 (Given - Provid er: Howard Sarabia MD) triamcinolone (KENALOG-40) injection (CANCELED) NEEDED, Starting on Mon03/25/24 at 0944, Until Mon03/25/24 at 0948, Intra-op/Intra-Proc 0944 (Given - Provid er: Massimo Vizcarra MD - Comment: mixed with BSS 1:6 ratio.0.1ml of mixture given) Scheduled Medication Order 02/18/2025 02/19/2025 02/20/2025 acetaminophen (Tylenol) oral liquid 650 mg(Linked Group 1) 650 mg, nasogastric tube, Every 6 hours, First dose on Mon02/19/25 at 1500, Phase II/On Unit, Give oral liquid if patient prefers or per feeding tube if present. 1522 (Given - Provider: Michelle Yu LPN)2047 (See Alternative - Provider: Cassidy Norris RN) 314 (See Alternative - Provider: Cassidy Norris RN)0817 (See Alternative - Provider: Katya Yu RN)1500 (Due)2100 (Due) acetaminophen (Tylenol) suppository 650 mg(Linked Group 1) 650 mg, rectal, Every 6 hours, First dose on Mon02/19/25 at 1500, Phase II/On Unit, Give rectally if unable to administer by mouth or feeding tube., If ordered PRN for pain, nurse is permitted to administer this medication for higher pain scores based on patient preference? Yes 1522 (See Alternative - Provider: Michelle Yu LPN)2047 (See Alternative - Provider: Cassidy Norris RN) 314 (See Alternative - Provider: Cassidy Norris RN)0817 (See Alternative - Provider: Katya Yu RN)1500 (Due)2100 (Due) acetaminophen (Tylenol) tablet 650 mg(Linked Group 1) 650 mg, oral, Every 6 hours, First dose on Mon02/19/25 at 1500, Phase II/On Unit, If ordered PRN for pain, nurse is permitted to administer this medication for higher pain scores based on patient preference? Yes 1522 (See Alternative - Provider: Michelle Yu LPN)2047 (Given - Provider: Cassidy Norris RN) 314 (Given - Provider: Cassidy Norris RN)0817 (Given - Provider: Katya Yu RN)1500 (Due)2100 (Due) amLODIPine (Norvasc) tablet 5 mg 5 mg, oral, Daily, First dose on Mon02/20/25 at 0900, Phase II/On Unit 0818 (Given - Provid er: Katya Yu RN) colchicine tablet 0.6 mg 0.6 mg, oral, Daily, First dose on Mon02/19/25 at 1500, Phase II/On Unit 1816 (Given - Provider: Michelle Yu LPN) 0819 (Given - Provider: Katya Yu RN) enoxaparin (Lovenox) syringe 40 mg 40 mg, subcutaneous, Every 24 hours, First dose on Mon02/19/25 at 2100, Phase II/On Unit, Indications: deep vein thrombosis prevention 2047 (Given - Provider: Cassidy Norris RN) 2100 (Due) lidocaine 4 % patch 1 patch 1 patch, transdermal, Administer over 12 Hours, Daily, First dose on Mon02/19/25 at 1500, Phase II/On Unit, Apply to Abdomen. Patch will remain on for 12 hours, then removed for [address] patch directly over any surgical incisions or wounds. 1522 (Medication Applied - Provider: Michelle Yu LPN) 0324 (Medication Removed - Provider: Cassidy Norris RN)0818 (Medication Applied - Provider: Katya Yu RN - Comment: ABDOMEN)2017 (Due: Medication Removed - Provider: Katya Yu RN) lisinopril tablet 20 mg 20 mg, oral, Daily, First dose on Mon02/20/25 at 0900, Phase II/On Unit 0818 (Given - Provid er: Katya Yu RN) methocarbamol (Robaxin) injection 1,000 mg (COMPLETED) 1,000 mg, intravenous, Administer over 4 Minutes, Once, On Mon02/19/25 at 1215, For 1 dose, Recovery (only) 1222 (Given - Provider: Elizabeth Vazquez RN) methocarbamol (Robaxin) tablet 500 mg 500 mg, oral, Every 8 hours scheduled, First dose on Mon02/19/25 at 1500, Phase II/On Unit 1523 (Given - Provider: Michelle Yu LPN)2247 (Given - Provider: Cassidy Norris RN) 0657 (Given - Provider: Cassidy Norris RN)1400 (Due)2200 (Due) polyethylene glycol (Glycolax, Miralax) packet 17 g 17 g, oral, Daily, First dose on Mon02/19/25 at 1500, Phase II/On Unit, Bowel Regimen - for prevention of constipation. 1524 (Not Given - Provider: Michelle Yu LPN - Reason: Patient/family refused) 0818 (Given - Provider: Katya Yu RN) simvastatin (Zocor) tablet 40 mg 40 mg, oral, Daily, First dose on [place] 02/20/25 at 0900, Phase II/On Unit 2100 (Due - Provider : Katya Yu RN) PRN Medication Order 02/18/2025 02/19/2025 02/20/2025 albuterol 2.5 mg /3 mL (0.083 %) nebulizer solution 2.5 mg (COMPLETED) 2.5 mg, nebulization, Once as needed, wheezing, Starting on Mon02/19/25 at 1157, For 1 dose, Recovery (only) 1220 (Given - Provider: Elziabeth Vazquez RN) BUPivacaine-EPINEPHrine (PF) (Marcaine w/EPI) 0.5 %-1:200,000 injection (CANCELED) As needed, Starting on Mon02/19/25 at 1150, Intraprocedure 1150 (Given - Provider: Elizabeth Santos MD) HYDROmorphone (Dilaudid) injection 0.5 mg (CANCELED) 0.5 mg, intravenous, Every 5 min PRN, pain severe (7-10), first line, Starting on Mon02/19/25 at 1157, Recovery (only), Max total of 4 mg regardless of dose. 1338 (Given - Provider: Elizabeth Vazquez RN) oxyCODONE (Roxicodone) immediate release tablet 5 mg (CANCELED) 5 mg, oral, Every 4 hours PRN, pain mild (1-3), first line, Starting on Mon02/19/25 at 1157, Recovery (only), When able to take oral medications., If ordered PRN for pain, nurse is permitted to administer this medication for higher pain scores based on patient preference? Yes 1356 (Given - Provider: Elizabeth Vazquez RN) oxyCODONE (Roxicodone) immediate release tablet 5 mg 5 mg, oral, Every 6 hours PRN, pain severe (7-10), first line, Starting on Mon02/19/25 at 1440, Phase II/On Unit 1937 (Given - Provider: Cassidy Norris, MARSHALL) 0315 (Given - Provider: Cassidy Norris RN) sodium chloride 0.9 % irrigation solution (CANCELED) As needed, Starting on Mon02/19/25 at 1107, Intraprocedure 1107 (Given - Provider: Elizabeth Santos MD - Comment: dispensed to sterile field)1112 (Given - Provider: Elizabeth Santos MD - Comment: suction air brake man) Linked Groups Order Group 1: acetaminophen (Tylenol) tablet 650 mgJump to med 650 mg, oral, Every 6 hours, First dose on Mon02/19/25 at 1500, Phase II/On Unit, If ordered PRN for pain, nurse is permitted to administer this medication for higher pain scores based on patient preference? Yes Or acetaminophen (Tylenol) oral liquid 650 mgJump to med 650 mg, nasogastric tube, Every 6 hours, First dose on Mon02/19/25 at 1500, Phase II/On Unit, Give oral liquid if patient prefers or per feeding tube if present. Or acetaminophen (Tylenol) suppository 650 mgJump to med 650 mg, rectal, Every 6 hours, First dose on Mon02/19/25 at 1500, Phase II/On Unit, Give rectally if unable to administer by mouth or feeding tube., If ordered PRN for pain, nurse is permitted to administer this medication for higher pain scores based on patient preference? Yes Scheduled Medication Order 05/04/2025 05/05/2025 05/06/2025 sodium chloride 0.9% (NS) flush 5-40 mL 5-40 mL, IntraVENous, Every 12 hours, First dose on Mon05/06/25 at 0645, Preprocedure, For Line Patency: Peripheral IV = 5 mL; Midline or Central Line = 10 mL/lumen. If following IV push medication, administer flush at same rate as the IV push. Flush volume is determined by type of infusion therapy being given. For non-viscous solutions use: Peripheral IV = 5 mL Midline or Central Line = 10 mL/lumen For viscous solutions (i.e. blood components, parenteral nutrition, contrast media, or after obtaining blood sample) use: Peripheral IV = 10 mL Midline or Central Line = 20 mL/lumen 0645 (Canceled Entry - Provider: Automatic Discharge Provider - Comment: Automatically canceled at discontinue of medication order) PRN Medication Order 05/04/2025 05/05/2025 05/06/2025 lidocaine (Xylocaine) 1 % injection (CANCELED) As needed, Starting on Mon05/06/25 at 0723, Intraprocedure 0723 (Given - Provid er: Sergio Pino MD) sodium chloride 0.9 % infusion 5-250 mL/hr, IntraVENous, PRN, if patient receiving piggyback infusions and maintenance fluids are not ordered OR KVO fluids to protect IV site / prevent frequent line interruptions / long duration, Starting on Mon05/06/25 at 0637, Preprocedure, For piggyback infusion, administer at same rate as piggyback for a total of 25 mL. Enter 25 mL into dose field and piggyback rate into rate field of order. If piggyback is infusing at a rate less than 100 mL/hr, enter 25 mL into dose field and 100 mL/hr into rate field of order. For KVO fluids, enter rate of 20 mL/hr or less into rate field of order. sodium chloride 0.9% (NS) flush 5-40 mL 5-40 mL, IntraVENous, PRN, line care, After every IV line use, Starting on Mon05/06/25 at 0637, Preprocedure, For Line Patency: Peripheral IV = 5 mL; Midline or Central Line = 10 mL/lumen. If following IV push medication, administer flush at same rate as the IV push. Flush volume is determined by type of infusion therapy being given. For non-viscous solutions use: Peripheral IV = 5 mL Midline or Central Line = 10 mL/lumen For viscous solutions (i.e. blood components, parenteral nutrition, contrast media, or after obtaining blood sample) use: Peripheral IV = 10 mL Midline or Central Line = 20 mL/lumen FOR RECORDS PERTAINING TO PATIENTS WHO ARE OR HAVE BEEN ENROLLED IN A CHEMICAL DEPENDENCY/SUBSTANCEABUSE PROGRAM, SOME INFORMATION MAY BE OMITTED. This clinical summary was aggregated from multiple sources. Caution should be exercised in using it in the provision of clinical care. This summary normalizes information from multiple sources, and as a consequence, information in this document may materially change the coding, format and clinical context of patient data. In addition, data may be omitted in some cases. CLINICAL DECISIONS SHOULD BE BASED ON THE PRIMARY CLINICAL RECORDS. [employer] provides no warranty or guarantee of the accuracy or completeness of information in this document.
[2025-06-20 19:56] LABS: Anion Gap 14 (5-15); BUN 24 mg/dL (4-19); BUN/Creat Ratio 23.3 RATIO (10-20); Calcium,Total 9.7 mg/dL (7.6-11.0); Carbon Dioxide 20.8 mmol/L (21.0-32.0); Chloride 105 mmol/L (98-108); Estimated Creatinine Clearance 76.30 ml/min (50-250); Glucose 113 mg/dL (70-99); Potassium 3.9 mmol/L (3.3-5.1)
[2025-06-20 20:07] LABS: Mucous, Urine 0 SEEN /hpf (<or=2+); Squamous Epithelial Cells - UA 0 SEEN /hpf (0-5)
--- NOTE | 2025-06-20 20:09 | CT_ITS ---
PROCEDURE: ABDOMEN/PELVIS W IV CONT ONLY 06/20/2025 REASON FOR EXAM: CHILLS, ABDOMINAL WALL CELLULITIS TECHNIQUE: ABDOMEN/PELVIS W IV CONT ONLY Coronal and Sagittal reconstruction series were provided. CONTRAST: Isovue 370 VOLUME: 100 mL One or more dose reduction techniques were used (e.g., Automated exposure control, adjustment of the mA and/or kV according to patient size, use of iterative reconstruction technique. RADIATION DOSE SUMMARY: CTDlvol: 32.73 mGy DLP: 1358.64 mGycm COMPARISON: 2020 FINDINGS: Lung bases: Chronic interstitial changes with platelike atelectasis in the left lung base. Liver: There is unremarkable aside from a simple 2 cm cyst in the left lobe. No specific follow-up needed. Gallbladder: Surgically absent Spleen: Normal size. Pancreas: Normal size without evidence of mass surrounding inflammation or ductal dilation. Adrenals: Unremarkable Kidneys: No obstructive uropathy or suspicious solid renal lesion. Simple bilateral renal cysts are noted. No specific follow-up needed. Bladder: Unremarkable but there is enlarged prostate impinging upon the inferior aspect of the bladder and there may be bladder outlet issues. Bowel: Nondistended fluid-filled small bowel loops suggestive of ileus. Retained stool noted in the colon with scattered diverticula but no CT evidence of acute diverticulitis. Hyperdensity within the cecum likely represents ingested medication. Appendix: Normal appendix seen on coronal recon images 61 through 69. Lymph nodes: No suspicious mesenteric or retroperitoneal lymph nodes Vasculature: Peripheral calcifications in the abdominal aorta without aneurysm Peritoneum / Retroperitoneum: No free fluid or air Bones: Degenerative bony changes CT/Abdomen/Pelvis W IV Cont ONLY IMPRESSION: No suspicious solid organ abnormality, simple hepatic and renal cysts, no speci fic follow-up needed. Small-bowel ileus Enlarged prostate impinging upon the inferior aspect of the bladder may be caus ing bladder outlet issues Scattered colonic diverticula, no CT evidence of acute diverticulitis. No free intraperitoneal fluid, air, or suspicious adenopathy. Normal appendix visualized Reading Location: [id number]
[2025-06-20 20:10] LABS: Color, Urine Yellow (Yellow); Glucose, Dipstick Normal (Normal); Ketone-Dipstick Negative (Negative); Leukocyte Esterase-Dipstick Negative /ul (Negative); Nitrite-Dipstick Negative (Negative); Occult Blood-Urine 10 /ul (Negative); Protein-Dipstick 30 mg/dl (Negative); Specific Gravity, Urine 1.015 (1.002-1.030); Urine Bilirubin Dipstick Negative (Negative)
[2025-06-20 20:27] LABS: Red Blood Cells-Urine 0-5 SEEN /hpf (0-5)
== END 2025-06-20 22:36 | disposition home or self-care (01) ==
PROVIDERS: Emergency Provider Emergency Medicine; PCP Family Medicine; Visit Provider Emergency Medicine
DX: R53.1 Weakness (principal); R06.00 Dyspnea, unspecified; R68.83 Chills (without fever); Z86.16 Personal history of COVID-19
CPT/HCPCS: 71045; 74177; 80048; 81001; 83605; 85025; 93005; 96360; 96361; 99283; Q9967; A4216

== ENCOUNTER → 2025-08-19 | Outpatient (CLI) | payer MEDICARE, OTHER, SELFPAY ==
[2025-08-19 18:47] LABS: AST(SGOT) 24 U/L (<=37); Alanine Aminotransfer ALT/SGPT 25 U/L (<=46); Albumin, Serum 4.1 g/dL (3.4-4.8); Alkaline Phosphatase 92 U/L (40-129); Anion Gap 10 (5-15); BUN 23 mg/dL (4-19); BUN/Creat Ratio 20.9 RATIO (10-20); Calcium,Total 9.6 mg/dL (7.6-11.0); Carbon Dioxide 24.5 mmol/L (21.0-32.0); Chloride 105 mmol/L (98-108); Cholesterol 156 mg/dL (<=200); Globulin 2.5 g/dL (2.2-4.2); Glucose 94 mg/dL (70-99); Low Density Lipoprotein Calc. 79 mg/dL; Potassium 4.8 mmol/L (3.3-5.1); Triglycerides 187 mg/dL; Very Low Density Lipoprotein 37 mg/dL (5-40); cholesterol:hdl ratio screen 3.93
== END | disposition home or self-care (01) ==
LOC: MFPLAB 14:37
PROVIDERS: PCP Family Medicine; Visit Provider Family Medicine
DX: E78.5 Hyperlipidemia, unspecified (principal)
CPT/HCPCS: 36415; 80053; 80061

== ENCOUNTER → 2025-11-07 | Outpatient (CLI) | payer MEDICARE, OTHER, SELFPAY ==
--- NOTE | 2025-11-07 14:09 | RAD_ITS ---
PROCEDURE: CHEST PA AND LATERAL 11/07/2025 REASON FOR EXAM: DISORDERS OF DIAPHRAM TECHNIQUE: Procedure Code: RADCXR Modality: DX Procedure: CHEST PA AND LATERAL FINDINGS: Scattered reticular opacities may reflect pulmonary interstitial edema versus atypical pneumonia. No focal consolidation. No pleural effusion or pneumothorax. Cardiac silhouette is within normal limits. No acute fractures. Elevated left hemidiaphragm. RAD/Chest PA and Lateral IMPRESSION: Elevated left hemidiaphragm. Scattered reticular opacities may reflect pulmonary interstitial edema versus a typical pneumonia. Reading Location: [facility]
[2025-11-07 18:23] LABS: Pro- Brain NATRIURETIC PEPTIDE 131 pg/mL (<=1800)
== END | disposition home or self-care (01) ==
LOC: MTLAB 14:06
PROVIDERS: PCP Family Medicine; Referring Provider Internal Medicine Pulmonary Disease; Visit Provider Internal Medicine Pulmonary Disease
DX: I25.10 Atherosclerotic heart disease of native coronary artery without angina pectoris (principal); J98.6 Disorders of diaphragm
CPT/HCPCS: 36415; 71046; 83880

== ENCOUNTER → 2025-11-14 | Outpatient (CLI) | payer MEDICARE, OTHER, SELFPAY ==
--- NOTE | 2025-11-14 11:00 | ECHOCS_ITS ---
Reason For Study Reason For Study: ASHD Procedure This was a 2D Doppler, Color Flow transthoracic echocardiogram. The study was technically difficult. Contrast injection was performed. Exam performed in department. Left Ventricle Normal-sized left ventricle. Left ventricular EF by Spivey's biplane: 58%. Normal diastolic function. No regional wall motion abnormalities noted. Right Ventricle Normal right ventricle. Normal systolic function. Unable to estimate RV systolic pressure due to insufficient tricuspid regurgitant envelope. Atria The left and right atria are normal. Right atrial pressure estimated at: 3 mmHg. Mitral Valve Normal mitral valve. Trace mitral regurgitation. No mitral stenosis. Tricuspid Valve Normal tricuspid valve. Trace tricuspid regurgitation. No tricuspid stenosis. Aortic Valve Trileaflet aortic valve. No hemodynamically significant aortic stenosis. No aortic regurgitation. Pulmonic Valve Normal pulmonic valve. Trace pulmonic regurgitation. No pulmonic stenosis. Great Vessels Normal sized aortic root. Pericardium/Pleural No pericardial effusion. Medication 22 gauge I.V. with prn adaptor inserted into right arm. Diluted definity 2ml given slow IV push to enhance endocardial definition. MMode/2D Measurements & Calculations LVIDd: 4.6 cm IVSd: 1.3 cm Ao root diam: 3.8 cm LVIDs: 2.6 cm LVPWd: 1.0 cm FS: 43.6 % LAV(MOD-bp): 60.5 ml LVAd ap4: 30.9 cm2 SV(MOD-sp4): 58.2 ml LAV(MOD-bp) Indexed: 27.0 ml/m2 LVLd ap4: 8.1 cm SI(MOD-sp4): 26.0 ml/m2 LAV(MOD-sp2): 64.5 ml EDV(MOD-sp4): 100.1 ml LAV(MOD-sp4): 47.6 ml EDV(sp4-el): 100.0 ml LVAs ap4: 18.2 cm2 LVLs ap4: 6.8 cm ESV(MOD-sp4): 41.9 ml ESV(sp4-el): 41.5 ml EF(MOD-sp4): 58.2 % EF(sp4-el): 58.5 % SV(sp4-el): 58.5 ml LA A4 area: 19.5 cm2 RA A4 area: 13.1 cm2 Time Measurements MV dec time: 0.29 sec Doppler Measurements & Calculations MV E max alex: 66.8 cm/sec Lat Peak E' Alex: 13.4 cm/sec Med Peak E' Alex: 10.0 cm/sec MV A max alex: 70.2 cm/sec E/E' lat: 5.0 E/E' med: 6.7 MV E/A: 0.95 MV V2 max: 97.4 cm/sec Ao V2 max: 118.7 cm/sec MV max P.8 mmHg MV dec slope: 232.0 cm/sec2 Ao max P.6 mmHg MV V2 mean: 49.1 cm/sec Ao V2 mean: 80.6 cm/sec MV mean P.2 mmHg Ao mean P.0 mmHg MV V2 VTI: 31.2 cm Ao V2 VTI: 26.1 cm AV (velocity ratio): 0.96 LV V1 max: 99.1 cm/sec PA V2 max: 113.0 cm/sec LV V1 max P.9 mmHg PA V2 mean: 79.5 cm/sec LV V1 mean P.4 mmHg LV V1 mean: 73.6 cm/sec LV V1 VTI: 24.9 cm ECHO/Echo Complete W/ Contrast Interpretation Summary Normal left ventricular systolic function, with EF by Spivey's biplane: 58% Normal left ventricular diastolic function Normal right ventricular systolic function No hemodynamically significant valvular disease Ordering Physician: Lm Hill V Referring Physician: Lm Hill V Performed By: Caitlin Corona RCS
--- OUTSIDE RECORDS SUMMARY | 2025-11-14 11:21 | XMS RPT_ITS | CCD ---
Author Organization [facility] Care Team Providers Care Registrar [employer] Name Role Phone MISSIOS, SYMEON Unavailable Unavailable [...] Unavailable Primary Care Provider Unavailabl e REFERRING, FERNANDEZ WO ID Primary Care Unavailable DEVON DIAS MD Attending Unavailable Alfredo Vasquez MD Primary Care Provider [phone] OHR, MASSIMO Wharton Attending Unavailable SIERRA DAVIDSON [...] MASSIMO Wharton Attending Unavailable OHR, MASSIMO Wharton Referring Unavailable ALFREDO VASQUEZ Primary Care Unavailable OHR, MASSIMO Wharton Referring Unavailable TERRIE, ASIYA Attending Unavailable ALFREDO VASQUEZ Primary Care Unavailable ARUN, DEVON Rothman Attending Unavailable ARUN, DEVON Rothman Attending Unavailable DEVON DIAS Attending Unavailable DEVON DIAS Attending Unavailable Alfredo Vasquez MD Primary Care Provider Christina GAITAN, Dr. Fuentes Primary Care Provider Christina GAITAN, Dr. Feuntes Attending Provider Christina GAITAN, Dr. Fuentes Referring Provider Almaz Hillman Attending Provider Almaz Hillman Referring Provider Junito GAITAN, Dr. Jacobsen Attending Provider Junito GAITAN, Dr. Jacobsen Emergency Provider Saira GAITAN, Dr. Haines Attending Provider Liz GAITAN, Dr. Lm Ortega Attending Provider Liz GAITAN, Dr. Lm Ortega Referring Provider Christina GAITAN, Dr. Fuentes Primary Care Provider Christina GAITAN, Dr. Fuentes Attending Provider Christina GAITAN, Dr. Fuentes Referring Provider Dr. Jana Blake MD Attending Provider [facility] MULE TENDER-CSonny Attending Provider Lashalincolnwoodbaldemar MULE TENDER-CSonny Referring Provider Saira GAITAN, Dr. Haines Attending Provider Unavailable Primary Care Provider Unavailkevan e SERGIO PINO Attending Provider SERGIO PINO Attending Unavailable JANA BLAKE Referring Unavailable SERGIO PINO Admitting Unavailable SERGIO PINO Attending Unavailable Christina GAITAN, Dr. Fuentes Primary Care Provider Dr. Alfredo Vasquez MD Referring Provider Dr. Alfredo Vasquez MD Attending Provider Dr. Dat Peoples DO Emergency Provider SAJAN, SARAHI Attending Unavailable VASQUEZALFREDO GUPTA Primary Care Unavailable CORRIE RILEY Attending Unavailable VASQUEZ, ALFREDO BUTCHER Primary Care Unavailable CORRIE RILEY Attending Unavailable VASQUEZ, ALFREDO BUTCHER Primary Care Unavailable SAJAN, SARAHI Attending Unavailable VASQUEZ, ALFREDO BUTCHER Primary Care Unavailable SAJAN, SARAHI Attending Unavailable VASQUEZ, ALFREDO BUTCHER Primary Care Unavailable SAJAN, SARAHI Referring Unavailable AVSQUEZ, ALFREDO BUTCHER Primary Care Unavailable SAJAN, МАРИНА Fernandez Referring Unavailable VASQUEZ, ALFREDO BUTCHER Primary Care Unavailable ONELIZABETH ECHEVERRIA Admitting Unavailable ELIZABETH SANTOS P Attending Unavailable VASQUEZ, ALFREDO BUTCHER Primary Care Unavailable SAJAN, МАРИНА Fernandez Referring Unavailable VASQUEZ, ALFREDO BUTCHER Primary Care Unavailable Christina GAITAN, Dr. Fuentes Primary Care Physician Christina GAITAN, Dr. Fuentes Attending Physician Christina GAITAN, Dr. Fuentes Referring Provider Shelton ROMO, Dr. Daugherty Attending Physician Dr. Dat Peoples DO Emergency Department Physici an Alfredo Vasquez Referring Unavailable Vasquez, Alfredo Primary Care Unavailable Vasquez, Alfredo Attending Unavailable Vasquez, Alfredo Primary Care Unavailable Almaz Hillman Attending Unavail able Almaz Hillman Referring Unavail able Vasquez, Alfredo Primary Care Unavailable VasquezAlfredo gupta Attending Unavailable McMorrow MULE TENDER, Sonny Referring Unavailable McMorrow MULE TENDER, Sonny Attending Unavailable Vasquez, Alfredo Primary Care Unavailable Vasquez, Alfredo Primary Care Unavailable Almaz Hillman Attending Unavail able Almaz Hillman Referring Unavail able WILVER CARLSON Attending Unavailable Vasquez, Alfredo Primary Care Unavailable Vasquez, Alfredo Attending Unavailable Vasquez, Alfredo Primary Care Unavailable Vasquez, Alfredo Referring Unavailable Vasquez, Alfredo Primary Care Unavailable Almaz Hillman Attending Unavail able Almaz Hillman Referring Unavail able Vasquez, Alfredo Primary Care Unavailable Zaki Chávez Attending Unavailable Chip Hancock Attending Unavailable Vasquez, Alfredo Primary Care Unavailable Almaz Hillman Referring Unavail able Vasquez, Alfredo Primary Care Unavailable Vasquez, Alfredo Referring Unavailable Jana Blake Attending Unavailable Delmar Wild Attending Unavailable Vasquez, Alfredo Primary Care Unavailable Vasquez, Alfredo Primary Care Unavailable UngDat falcon Attending Unavailable Vasquez, Alfredo Primary Care Unavailable Sibilia, Lm V Referring Unavailable Sibilia, Lm V Attending Unavailable Vasquez, Alfredo Primary Care Unavailable Vasquez, Alfredo Referring Unavailable Almaz Hillman Attending Unavail able Alberto Benjamin Attending Unavailable Vasquez, Alfredo Primary Care Unavailable Vasquez, Alfredo Referring Unavailable Vasquez, Alfredo Referring Unavailable Vasquez, Alfredo Primary Care Unavailable Jana Blake Attending Unavailable Zaki Chávez Attending Unavailable Vasquez, Alfredo Primary Care Unavailable Vasquez, Alfredo Primary Care Unavailable Sibilia, Lm V Referring Unavailable Sibilia, Lm V Attending Unavailable Vasquez, Alfredo Attending Unavailable Vasquez, Alfredo Primary Care Unavailable Vasquez, Alfredo Referring Unavailable McMorrow MULE TENDER, Sonny Referring Unavailable McMorrow MULE TENDER, Sonny Attending Unavailable Vasquez, Alfredo Primary Care Unavailable Allergies Allergy Classification Reported Allergen(s) Allergy Type Date of Onset Reaction(s) Facility (1 source) NO KNOWN ALLERGIES; Translations: [NO KNOWN ALLERGIES] Propensity to adverse reactions (disorder) [facility] Repository (1 source) NKA; Translations: [NKA] Propensity to adverse reactions (disorder) [facility] Repository (15 sources) Metoprolol; Translations: [METOPROLOL SUCCINATE] Drug Allergy 2 [facility] (15 sources) topiramate; Translations: [TOPIRAMATE] Drug Allergy 2 Other [facility] Work Phone: (10 sources) Topiramate Propensity to adverse reactions to drug 2 Other [facility] (5 sources) Metoprolol Drug Allergy 2 [facility] Medications Current Medications Medication Drug Class(es) Dates [...] from all sources in 24 hours., Post-op/Post-Proc aspirin 81 mg chewable tablet (20 sources) Platelet Aggregation Inhibitor, Nonsteroidal Anti-inflammatory Drug Start: 11-29-2016 take 1 tablet by mouth once daily Start: 03-13-2006 aspirin 81 mg EC tablet [...] tablet by mouth once daily colchicine 0.6 mg tablet Take 1 tablet (0.6 mg) by mouth once daily. 11/20/2024 Active Start: 08-05-2024 End: 08-13-2024 take 1 capsule by mouth twice daily Colchicine 0.6 mg Capsule Discontinued 0.6 mg PO TWICE A DAY 360 180 0 August 05, 2024 12:00am August 13, 2024 3:08pm docusate sodium 100 mg oral capsule (9 sources) Start: 02-20-2025 take 1 capsule by mouth twice daily docusate sodium (Colace) 100 mg capsule Indications: Acute post-operative pain Take 1 capsule (100 mg) by mouth 2 times a day. To prevent constipation while taking narcotic pain medication 8 capsule 02/20/2025 10:05 AM EDT 02/20/2025 Active 0.4 ml enoxaparin sodium 100 mg/ml prefilled syringe (1 source) Low Molecular Weight Heparin Start: 02-19-2025 inject 40 mg by subcutaneous injection every twenty-four hours 40 mg, subcutaneous, Every 24 hours, First dose on Mon02/19/25 at 2100, Phase II/On Unit, Indications: deep vein thrombosis prevention hydrocortisone 0.01 mg/mg topical ointment (2 sources) Corticosteroid Start: 06-23-2025 End: 06-30-2025 hydrocortisone 1 % ointment Indications: Allergic contact dermatitis due to adhesives Apply topically 2 times a day for 7 days. 29 g 1 06/23/2025 06/30/2025 Active lidocaine 0.04 mg/mg medicated patch (1 source) [...] by mouth once daily Lisinopril 20 MG Oral Tablet Quantity: 0 Refills: 0 Ordered: 03-Apr-2018 DO Active magnesium oxide 250 mg oral tablet (20 sources) Start: 08-03-2024 take 1 tablet by nat th once daily take 1 tablet by mouth once gualberto y magnesium oxide (Mag-Ox) 400 mg (241.3 mg magnesium) tablet Take 1 tablet by mouth once daily. Active methocarbamol 500 [...] (with dinner). Active Multivitamin (Daily Multi-Vitamin) tablet (9 sources) Start: 08-03-2024 Start: 08-03-2024 Multivitamin ( Daily Multi-Vitamin) tablet Active 1 {tbl} PO DAILY August 03, 2024 12:00am supplement Start: 08-03-2024 Multivitamin ( Daily Multi-Vitamin) tablet Active 1 {tbl} PO DAILY August 03, 2024 12:00am multivitamin tablet (12 sources) take 1 tablet by nat th once daily multivitamin tablet Take 1 tablet [...] Active oxyCODONE hydrochloride 5 mg oral tablet (6 sources) Opioid Agonist Start: 02-19-2025 take 1 tablet by mouth every six hours in the morning for pain oxyCODONE (Roxicodone) 5 mg immediate release tablet Indications: Acute post-operative pain Take 1 tablet (5 mg) by mouth every 6 hours if needed for severe pain (7 - 10). 4 tablet 02/20/2025 9:45 AM EDT 02/20/2025 Active Start: 02-19-2025 End: 02-19-2025 take 1 tablet by mouth every four hours as needed 5 mg, oral, Every 4 hours PRN, pain mild (1-3), first line, Starting on Mon02/19/25 at 1157, Recovery (only), When able to take oral medications., If ordered PRN for pain, nurse is permitted to administer this medication for higher pain scores based on patient preference? Yes polyethylene glycol 3350 [id number] mg powder for oral solution (1 source) Osmotic Laxative Start: 02-19-2025 17 g, oral, D aily, First dose on Mon02/19/25 at 1500, Phase II/On Unit, Bowel Regimen - for prevention of constipation. prednisoLONE acetate 10 mg/ml ophthalmic suspension (4 sources) Corticosteroid Start: 03-25-2024 take 1 drop(s) into the eye(s) four times daily prednisoLONE acetate 1 % Suspension ophthalmic suspension Place 1 drop in right eye 4 times daily. 5 mL 03/25/2024 Active RIBOFLAVIN, VITAMIN B2, ORAL (11 sources) take 1 tablet by mouth once daily RIBOFLAVIN, VITAMIN B2, ORAL Take 1 tablet by mouth once daily. Active RIBOFLAVIN, FLORECITA MIN B2, ORAL Take by mouth. Active sertraline 100 mg oral tablet (20 sources) Serotonin Reuptake Inhibitor Start: 03-21-2025 take 1 tablet by mouth once daily Start: 08-03-2024 End: 03-21-2025 take 2 tablets by mouth once daily Sertraline 100 mg tablet Discontinued 200 mg PO DAILY August 03, 2024 12:00am March 21, 2025 8:05am . Start: 03-02-2024 End: 07-31-2025 take 1.5 tablets [...] tablet by mouth at bedtime Simvastatin 40 M G Oral Tablet Quantity: 0 Refills: 0 Ordered: 03-Apr-2018 DO Active sulfamethoxazole 800 mg / trimethoprim 160 mg oral tablet (2 sources) Dihydrofolate Reductase Inhibitor Antibacterial, Sulfonamide Antimicrobial Start: 06-20-2025 End: 06-27-2025 take 1 tablet by mouth twice daily sulfamethoxazole-trimethoprim (Bactrim DS) 800-160 mg tablet Indications: Skin infection Take 1 tablet by mouth 2 times a day for 7 days. 14 tablet 06/20/2025 06/27/2025 Active tamsulosin hydrochloride 0.4 mg oral capsule (7 sources) alpha-Adrenergic Tracey Start: 03-07-2024 End: 04-23-2025 take 1 capsule by mouth once daily Tamsulosin HCl 0.4 MG capsule Take 1 capsule by mouth daily. 03/07/2024 Active ubidecarenone 50 mg oral capsule (20 sources) take 4 capsules by mouth once daily co-enzyme Q-10 50 mg capsule Take 4 capsules (200 mg) by mouth once daily. Active take 1 capsule by mo uth once daily at dinner Coenzyme Q10 50 MG capsule Take 1 capsul e by mouth Daily (with dinner). Active ubiquinol 100 mg oral capsul e (9 sources) Start: 08-13-2024 Completed/Discontinued Medications Medication Drug Class(es) Dates Sig (Normalized) Sig (Original) acetaminophen 325 mg / HYDROcodone bitartrate 5 mg oral tablet (20 sources) Opioid Agonist Start: 05-16-2021 End: 08-03-2024 Hydrocodone-Acetami nophen 1 TABLET tablet Discontinued 1 {tbl} PO EVERY 6 HOURS NEEDED as needed for Pain 12 3 0 May 16, 2021 August 03, 2024 11:43am Calculus of distal right ureter Calculus of ureter Start: 05-16-2021 take 1 tablet by nat th every six hours as needed Hydrocodone-Acetaminophen Active 1 TABLE T PO EVERY 6 HOURS NEEDED 12 3 May 16, 2021 Start: 12-06-2016 End: 08-03-2024 Hydrocodone-Acetaminophen 1 TABLET tablet Discontinued 1 - 2 {tbl} PO EVERY 4 HOURS NEEDED as needed for Pain 15 0 December 06, 2016 1:00am August 03, 2024 11:43am Start: 12-06-2016 take 1 tablet by nat th every four hours as needed Hydrocodone-Acetaminophen Active 1 - 2 TABLET PO EVERY 4 HOURS NEEDED December 06, 2016 1:00am acetaZOLAMIDE 250 mg oral tablet (10 sources) Carbonic Anhydrase Inhibitor Start: 05-01-2019 ACETAZOLAMIDE 250 MG TABS 1 tablet twice daily ACETAZOLAMIDE [id number] Dayanara Flowers LPN Start: 12-06-2018 End: 02-18-2025 [...] bedtime. 06/22/2023 02/18/2025 Discontinued (Entered in Error) amLODIPine 5 mg oral tablet (20 sources) Dihydropyridine Calcium Channel Tracey Start: 08-08-2024 End: 05-07-2025 take 1 tablet by mouth once daily Amlodipine 5 mg tablet Discontinued 5 mg PO DAILY 90 3 August 13, 2024 3:20pm May 07, 2025 12:59pm b complex-vitamin c tablet (10 sources) End: [...] mg tablet Discontinued 20 mg PO DAILY 90 3 November 04, 2024 11:40am March 21, 2025 8:05am hydroCHLOROthiazide 12.5 mg oral tablet (20 sources) Thiazide Diuretic Start: 05-01-2019 End: 02-18-2025 HYDROCHLOROTHIAZIDE 12.5 MG TABS 1 tablet daily HYDROCHLOROTHIAZIDE [id number] Dayanara Lionel COLLINS Start: 12-06-2016 End: 08-03-2024 take 1 capsule [...] of dose. indomethacin 25 mg oral capsule (11 sources) Nonsteroidal Anti-inflammatory Drug Start: 08-05-2024 End: 04-23-2025 take 2 capsules by mouth three times daily at mealtime Indomethacin 25 mg Capsule Discontinued 50 mg PO 3 TIMES DAILY WITH MEALS 168 28 0 August 05, 2024 12:00am November 06, 2024 [...] ADULT TABS 1 tablet daily MULTIPLE VITAMINS-MINERALS [id number] Dayanara Lionel NEVESN nortriptyline 25 mg oral capsule (20 sources) [...] 12:58pm ondansetron 4 mg disintegrating oral tablet (14 sources) Serotonin-3 Receptor Antagonist Start: 05-16-2021 End: [...] release (DR/EC) Discontinued 20 mg PO DAILY 90 August 15, 2024 9:44am November 06, 2024 7:27pm GERD Start: 08-07-2024 End: 08-13-2024 take 2 tablets by mouth once daily Pantoprazole 20 mg tablet,delayed release (DR/EC) Discontinued 40 mg PO DAILY August 07, 2024 12:00am August 13, 2024 2:41pm GERD Start: 08-05-2024 End: 08-07-2024 take 1 tablet by mouth once daily Pantoprazole 20 mg tablet,delayed release (DR/EC) Discontinued 20 mg PO DAILY 30 August 05, 2024 12:00am August 07, 2024 [...] extended release Discontinued 10 meq PO DAILY 90 3 November 21, 2024 11:45am March 21, 2025 [...] MG TABS 1 tablet daily PROMETHAZINE HCL [id number] Dayanara Flwoers LPN ramipril 10 mg oral capsule (9 [...] in Error) riboflavin 400 mg oral tablet (9 sources) Start: 08-03-2024 End: 08-13-2024 take 1 tablet by mouth once daily Riboflavin (Vitamin B2) 400 mg tablet Discontinued 400 mg PO DAILY August 03, 2024 12:00am August 13, 2024 2:40pm supplement 50 ml sodium chloride 9 mg/ml injection [...] Date Documented Da te Episodic/Chronic Abdominal pain (14 sources) Left flank pain; Translations: [Unspecified abdominal pain] 05-16-2021 Episodic Acute myocardial infarction (9 sources) Myocardial infarction; Translations: [Non-ST elevation (NSTEMI) myocardial infarction] 08-13-2024 Chronic Allergic reactions (3 sources) Allergic contact dermatitis due to adhesive; Translations: [Allergic contact dermatitis due to adhesives] Onset: 06-23-2025 06-23-2025 Episodic Calculus of urinary tract (14 sources) Ureteric stone of lower third of ureter; Translations: [Calculus of ureter] 05-16-2021 Episodic Cataract (3 sources) Pseudophakia of left eye; Translations: [Presence of intraocular lens] Onset: 03-14-2024 03-13-2024 Chronic Complication of device; implant or graft (4 sources) Dislocated intraocular lens; Translations: [Displacement of intraocular lens, initial encounter] Onset: 04-23-2024 03-13-2024 Episodic Conditions associated with dizziness or vertigo (12 sources) Endolymphatic hydrops; 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, bilateral] Onset: 09-10-2013 10-25-2023 Chronic Coronary atherosclerosis and other heart disease (20 sources) Coronary arteriosclerosis; Translations: [Atherosclerotic heart disease of [place] coronary artery without angina pectoris] Onset: 04-09-2025 08-13-2024 Chronic Diabetes mellitus with complications (3 sources) 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; Translations: [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] Onset: 04-23-2024 04-17-2024 Chronic Disorders of lipid metabolism (18 sources) Hypercholesterolemia ; Translations: [Pure hypercholesterolemia , unspecified] Onset: 08-25-2025 08-13-2024 Chronic Essential hypertension (17 sources) Hypertensive disorder; Translations: [Essential (primary) hypertension] 08-13-2024 Chronic Nonspecific chest pain (9 sources) Chest pain; Translations: [Chest pain, unspecified] 08-13-2024 Episodic Occlusion or stenosis of precerebral arteries (9 sources) Carotid artery stenosis; Translations: [Occlusion and stenosis of unspecified carotid artery] 09-02-2024 Chronic Other aftercare (3 sources) Surgical follow-up; Translations: [Encounter for surgical aftercare following surgery on the sense organs] 03-26-2024 Episodic Other aftercare (2 sources) Encounter for surgical aftercare following surgery on the sense organs; Translations: [Encounter for surgical aftercare following surgery on the sense organs] Onset: 04-23-2024 Episodic Other aftercare (9 sources) Long-term current use of diuretic; Translations: [Encounter for therapeutic drug level monitoring] 11-01-2024 Episodic Other circulatory disease (8 sources) H/O: hypertension; Translations: [Personal history of other diseases of circulatory system] Episodic Other circulatory disease (9 sources) History of pericarditis; Translations: [Personal history of other diseases of the circulatory system] 11-14-2024 Episodic Other ear and sense organ disorders (20 sources) Cochlear prosthesis in situ; Translations: [Other postprocedural status] Onset: 05-12-2019 10-25-2023 Chronic Other ear and sense organ disorders (3 sources) Cochlear implant status; Translations: [Cochlear implant status] Onset: 05-08-2023 Chronic Other ear and sense organ disorders (12 sources) Sensorineural hearing loss, bilateral; Translations: [Sensorineural [...] Onset: 03-14-2024 Chronic Other lower respiratory disease (15 sources) Disorder of diaphragm; Translations: [Disorders of diaphragm] Onset: 02-19-2025 02-06-2025 Episodic Other lower respiratory disease (20 sources) Dyspnea; Translations: [Shortness of breath] Onset: 04-23-2025 02-06-2025 Episodic Other lower respiratory disease (5 sources) Shortness of breath Episodic Other lower respiratory disease (4 sources) Disorders of diaphragm; Translations: [Disorders of diaphragm] Onset: 02-19-2025 Episodic Other nervous system disorders (20 sources) [...] other endocrine, metabolic, and immunity disorders] Episodic Other screening for suspected conditions (not mental disorders or infectious disease) (9 sources) Raised cardiac enzyme or marker; Translations: [Other specified abnormal findings of blood chemistry] 08-13-2024 Episodic [place]-; endo-; and myocarditis; cardiomyopathy (except that caused by tuberculosis or sexually transmitted disease) (20 sources) Myocarditis; Translations: [Myocarditis, unspecified] Onset: 04-23-2025 08-13-2024 Chronic Residual codes; unclassified (2 sources) Chill; Translations: [Chills (without fever)] 06-20-2025 Episodic Thyroid disorders (1 source) Nontoxic multinodular goiter; Translations: [Nontoxic multinodular goiter] Onset: 02-09-2025 Chronic Unclassified (1 source) Unknown / UNK(Unknown) Onset: 09-05-2017 Unclassified (6 sources) R06.02 - Shortness of breath,I30.0 - Acute nonspecific idiopathic pericarditis Past or Other Problems Problem Classification Problem Date Documented Da te Episodic/Chronic Biliary tract disease (12 sources) Acute cholecystitis; Translations: [Acute cholecystitis] Onset: 03-13-2006 10-25-2023 Episodic Conditions associated with dizziness or vertigo (20 sources) Dizziness; Translations: [Dizziness and giddiness] Onset: 06-01-2009 08-31-2023 Episodic Hemorrhoids (17 sources) Internal hemorrhoids; Translations: [Other hemorrhoids] Onset: 09-15-2008 Resolved: 10-25-2023 10-25-2023 Episodic Malaise and fatigue (3 sources) Asthenia; Translations: [Weakness] Onset: 06-28-2025 06-20-2025 Episodic Other and unspecified benign neoplasm (17 sources) Benign neoplasm of colon; Translations: [Benign neoplasm of colon, unspecified] Onset: 09-15-2008 10-25-2023 Episodic Other connective tissue disease (1 source) Arthrodesis status; Translations: [ARTHRODESIS STATUS] Onset: 06-06-2017 Episodic Other ear and sense organ disorders (12 sources) Subjective tinnitus; Translations: [Tinnitus, unspecified ear] Onset: 10-12-2009 10-25-2023 Episodic Other ear and sense organ disorders (17 sources) Tinnitus of left ear; Translations: [Tinnitus, left ear] Onset: 10-12-2009 10-25-2023 Episodic Other gastrointestinal disorders (1 source) Other fecal abnormalities; Translations: [Other fecal abnormalities] Onset: 11-23-2024 Episodic Other lower respiratory disease (13 sources) Paralysis of diaphragm ; Translations: [Disorders of diaphragm] Onset: 02-06-2025 02-06-2025 Episodic Other lower respiratory disease (2 sources) Shortness of breath; Translations: [Shortness of breath] Onset: 04-13-2025 Episodic Other lower respiratory disease (1 source) Dyspnea, unspecified; Translations: [Dyspnea, unspecified] Onset: 02-06-2025 Episodic Other lower respiratory disease (1 source) Other forms of dyspnea; Translations: [Other forms of dyspnea] Onset: 12-05-2024 Episodic Other nervous system disorders (17 sources) Impairment of balance; Translations: [Other abnormalities of gait and mobility] Onset: 05-12-2019 10-25-2023 Episodic Other nutritional; endocrine; and metabolic disorders (17 sources) Overweight; Translations: [Overweight] Onset: 03-07-2016 10-25-2023 Episodic [place]-; endo-; and myocarditis; cardiomyopathy (except that caused by tuberculosis or sexually transmitted disease) (20 sources) Pericarditis; Translations: [Disease of pericardium, unspecified] Onset: 04-09-2025 08-13-2024 Episodic Retinal detachments; defects; vascular occlusion; and retinopathy (20 sources) Rhegmatogenous retinal detachment; Translations: [Unspecified retinal detachment with retinal break, right eye] Onset: 10-08-2015 10-25-2023 Episodic Spondylosis; intervertebral disc disorders; other back problems (20 sources) Spinal stenosis, lumbar region; Translations: [Radiculopathy, lumbar region] Onset: 06-06-2017 05-02-2019 Episodic Unclassified (1 source) Problem Unclassified (13 sources) Onset: 08-31-2023 Resolved: 10-29-2024 08-31-2023 Results Test Name Value Interpretation Reference Range Facility Cardiology Visit Reporton Cardiology Visit Report [facility] [address] [place] [address]. [address] [place] [address] OFFICE VISIT Date of Service: 09/29/25 MR#: [id number] Acct: [id number] Name: BHAVNA ROCA Rep #: [id number] 24 : 1945 Provider: STEVIE montoya Age/Sex: 80/M [place] [facility] [place] HPI HPI History of Present Illness Details: Patient is a very pleasant 80-year-old white male that comes in with his today for an urgent visit. Patient reports that his dyspnea on exertion is becoming more pronounced he has been evaluated by Dr. Iniguez's advanced practitioner. This was after the patient had a left hemidiaphragm stimulator placed at [facility]. The patient been diagnosed with a paralyzed left hemidiaphragm. This does not seem to have improved his dyspnea on exertion in fact it is progressed. The patient reports to me that he was told that they did not think this was a primary pulmonary issue. The patient has a history of pericarditis last fall 2023. We repeated his echocardiogram April 08, 2025 his left ventricular ejection fraction is 65% with normal systolic function he had normal RV size and systolic function normal atria normal mitral valve 1+ tricuspid insufficiency with pulmonary artery systolic pressure estimated 30 to there was mild diffuse aortic valve thickening with no significant stenosis or regurgitation the pulmonic valve was normal the aortic root and pulmonary artery were normal in size as well as the inferior vena cava. There was no pericardial effusion documented. He was referred to [facility] for further evaluation of restrictive carditis. Workup was negative. He proceed with a right heart cath and per his report was negative. He ultimately was referred to [facility] and underwent a left diaphragm stimulator device placement. Since that time, his symptoms have improved. Intake Vital Signs 06/20/25 18:52 09/29/25 07:40 Height 6 ft 1 in 6 ft 1 in Weight: 238 lb BMI 31.4 BP 128/64 H Blood Pressure Location Lt brachial Position Sitting Respiration 18 Pulse 52 L Pulse Source Monitor Pulse Oximetry (%) 97 Intake Visit Reasons: 6 M Photonics Technician Required: No Is patient in pain?: No Allergies No Known Allergies Allergy (Verified 09/29/25 11:33) Medications ???Medication ???Instructions ???Recorded ???Confirmed ???Type aspirin 81 mg chewable tablet 81 mg PO DAILY@0800 blood thinner 11/29/16 09/29/25 History lisinopril 20 mg tablet 20 mg PO DAILY HTN 12/06/16 History simvastatin 40 mg tablet 40 mg PO QHS HLD 12/06/16 09/29/25 History magnesium oxide 250 mg PO DAILY supplement 4 09/29/25 History multivitamin (Daily Multi-Vitamin 1 tab PO DAILY supplement 4 09/29/25 History tablet) coQ10 (ubiquinol) 100 mg capsule 200 mg PO QDAY 08/13/24 09/29/25 H istory (Qunol Justin CoQ10) sertraline 100 mg tablet 100 mg PO DAILY . 03/21/25 5 History amlodipine 5 mg tablet 5 mg PO DAILY #90 tabs 05/07/25 Rx propranolol 40 mg tablet 40 mg PO BID 09/29/25 09/29/25 His tory riboflavin (vitamin B2) 400 mg 400 mg PO QDAY 09/29/25 09/29/25 H istory tablet Ejection fraction %: 65 Have you fallen in the past year?: No PFSH Medical History Coronary artery disease Pericardial effusion without cardiac tamponade Pericarditis Hypercholesterolemia Hypertension Elevated troponin Non-ST elevation NC (NSTEMI) Myocarditis Pericarditis Acute pericardial effusion Chest pain CKD (chronic kidney disease), stage II Obesity History of nephrolithiasis Anxiety and depression Surgical History History of surgery S/P cholecystectomy History of cochlear implant S/P ureteral stent placement Family History Mother Heart disease Hypertension Father Prostate cancer Social History household members: spouse Smoking Status: Never smoker alcohol intake: never substance use type: does not use ROS Const Const: Negative for fatigue, weakness, headache(s) or frequent falls Eyes Eyes: Negative for blurry vision ENT ENT: Negative for headache(s), dizziness or Nosebleed/epistaxis Cardio Chest Pain: No Palpitations: No Edema: None Muscle aches with walking: None Resp Respiratory: Positive for SOB with activity and SOB at rest; Negative for SOB orthopnea SOB lying down GI GI: Negative nausea, vomiting, heartburn, bright, red blood in stools or black,tarry stools : Negative for hematuria Musc Musc: Negative for muscle aches/ myalgia Skin Skin: Negative non-healing le (more content not included)... Normal [facility] Anion gap in Serum or Plasma Ordered By: Alfredo Vasquez on 08-19-2025 Anion gap [Moles/Vol] 10 mmol/L 5-15 [facility] BUN/creatinine ratioOrdered By: Alfredo Vasquez on 08-19-2025 Urea nitrogen/Creatinine [Mass ratio] 20.9 mg/mg High 10- [facility] Bilirubin, totalOrdered By: Alfredo Vasquez on 08-19-2025 Bilirubin [Mass/Vol] 0.72 mg/dL 0.00-1.30 [facility] Calculated very low density lipoprotein (VLDL) cholesterol measurementOrdered By: Alfredo Vasquez on 08-19-2025 Calculated very low density lipoprotein (VLDL) cholesterol measurement 37 mg/dL 5-40 [facility] Carbon dioxide, total [Moles /volume] in Central venous bloodOrdered By: Alfredo Vasquez on 08-19-2025 CO2 [Moles/Vol] 24.5 mmol/L 21.0-32.0 [facility] Chloride assayOrdered By: Ash Vasquez on 08-19-2025 Chloride [Moles/Vol] 105 mmol/L 98-108 [facility] Comprehensive Metabolic Prof ilon 08-19-2025 Albumin [Mass/Vol] 4.1 g/dL Normal 3.4-4.8 [facility] Comment on above: Performed By: #### L [id number], L501.9520, L506.0400 #### [facility] [address] [place], [address] Albumin/Globulin [Mass ratio] 1.6 {ratio} Normal 0.9-2.4 [facility] Comment on above: Performed By: #### L [id number], L501.9520, L506.0400 #### [facility] [address] [place], [address] ALK PHOS 92 U/L Normal 40-129 [facility] Comment on above: Performed By: #### L 501.25029, L501.9520, L506.0400 #### [facility] [address] [place], [address] ALT [Catalytic activity/Vol] 25 U/L Normal <=46 [facility] Comment on above: Performed By: #### L 501.75733, L501.9520, L506.0400 #### [facility] [address] [place], [address] AST [Catalytic activity/Vol] 24 U/L Normal <=37 [facility] Comment on above: Performed By: #### L 501.37824, L501.9520, L506.0400 #### [facility] [address] [place], [address] Bilirubin [Mass/Vol] 0.72 mg/dL Normal 0.00-1.30 [facility] Comment on above: Performed By: #### L 501.21116, L501.9520, L506.0400 #### [facility] [address] [place], [address] BUN/CRE 20.9 RATIO High 10-20 [facility] Comment on above: Performed By: #### L 501.33223, [id number], L506.0400 #### [facility] [address] [place], [address] Calcium [Mass/Vol] 9.6 mg/dL Normal 7.6-11.0 [facility] Comment on above: Performed By: #### L 501.80146, L501.9520, L506.0400 #### [facility] [address] [place], [address] Chloride [Moles/Vol] 105 mmol/L Normal 98-108 [facility] Comment on above: Performed By: #### L 501.19550, L501.9520, L506.0400 #### [facility] [address] [place], [address] CO2 [Moles/Vol] 24.5 mmol/L Normal 21.0-32.0 [facility] Comment on above: Performed By: #### L 501.10090, L501.9520, L506.0400 #### [facility] [address] [place], [address] Creatinine [Mass/Vol] 1.09 mg/dL Normal 0.70-1.20 [facility] Comment on above: Performed By: #### L 501.72224, L501.9520, L506.0400 #### [facility] [address] [place], [address] GAP 10 Normal 5-15 [facility] Comment on above: Performed By: #### L 501.20399, L501.9520, L506.0400 #### [facility] [address] [place], [address] GFR/1.73 sq M.predicted among non-blacks MDRD (S/P/Bld) [Vol rate/Area] 69 mL/min/{1.73_m2} Normal >60 [facility] Comment on above: Result Comment: mL/m in/1.73m2 CKD-EPI Creatinine Equation (2020) Performed By: #### L 501.32188, L501.9520, L506.0400 #### [facility] [address] [place], [address] Globulin (S) [Mass/Vol] 2.5 g/dL Normal 2.2-4.2 [facility] Comment on above: Performed By: #### L 501.17901, L501.9520, L506.0400 #### [facility] [address] [place], [address] Glucose [Mass/Vol] 94 mg/dL Normal 70-99 [facility] Comment on above: Performed By: #### L 501.04057, L501.9520, L506.0400 #### [facility] [address] [place], [address] Potassium [Moles/Vol] 4.8 mmol/L Normal 3.3-5.1 [facility] Comment on above: Performed By: #### L 501.72515, L501.9520, L506.0400 #### [facility] [address] [place], [address] Sodium [Moles/Vol] 140 mmol/L Normal 133-145 [facility] Comment on above: Performed By: #### L 501.85136, L501.9520, L506.0400 #### [facility] [address] [place], [address] T PROT 6.6 g/dL Normal 5.9-8.4 [facility] Comment on above: Performed By: #### L 501.54977, L501.9520, L506.0400 #### [facility] [address] [place], [address] Urea nitrogen [Mass/Vol] 23 mg/dL High 4-19 [facility] Comment on above: Performed By: #### L 501.62210, L501.9520, L506.0400 #### [facility] [address] [place], [address] Glomerular filtration rate ( GFR) estimation/1.73 sq m using serum, plasma, or whole bOrdered By: Alfredo Vasquez on 08-19-2025 GFR/1.73 sq M.predicted among non-blacks MDRD (S/P/Bld) [Vol rate/Area] 69 mL/min/{1.73_m2} >60 [facility] Comment on above: mL/min/1.73m2 CKD-EP I Creatinine Equation (2020) LDL calc ser/plasOrdered By: Alfredo Vasquez on 08-19-2025 Cholesterol in LDL [Mass/Vol] 79 mg/dL [facility] Comment on above: Ttxpgwnxiu=265-288 m g/dL & Higher Mbfz=267 mg/dL or greaterFriedwald Equation for LDL-C Laboratory - Chemistry and C hemistry - challengeOrdered By: Alfredo Vasquez on 08-19-2025 AST [Catalytic activity/Vol] 24 U/L <38 [facility] Lipid Profileon 08-19-2025 CHOL:HDL 3.93 Normal [facility] Comment on above: Performed By: #### L 501.26376, L501.9520, L506.0400 #### [facility] [address] [place], [address] Cholesterol [Mass/Vol] 156 mg/dL Normal <=200 [facility] Comment on above: Result Comment: Chol esterol level, Desirable <200 mg/dL Borderline high cholesterol 200-239 mg/dL High cholesterol >=240 mg/dL Recommendations of the NCEP Adult Treatment Panel for the following risk-cutoff thresholds for the [place] population. Performed By: #### L 501.64443, L501.9520, L506.0400 #### [facility] [address] [place], [address] Cholesterol in HDL [Mass/Vol] 40 mg/dL Normal [facility] Comment on above: Result Comment: Malia onal Cholesterol Education Program (NCEP) guidelines: <40 mg/dL: Low HDL-cholesterol (major risk factor for CHD) >= 60 mg/dL: High HDL-cholesterol (negative risk factor for CHD) HDL-cholesterol is affected by a number of factors, e.g. smoking, exercise, hormones, sex and age. Performed By: #### L 501.82254, L501.9520, L506.0400 #### [facility] [address] [place], [address] Cholesterol in LDL [Mass/Vol] 79 mg/dL Normal [facility] Comment on above: Result Comment: Bord phrrtq=925-181 mg/dL Higher Gaxi=158 mg/dL or greater Friedwald Equation for LDL-C Performed By: #### L 501.46819, L501.9520, L506.0400 #### [facility] [address] [place], [address] Cholesterol in VLDL [Mass/Vol] 37 mg/dL Normal 5-40 [facility] Comment on above: Performed By: #### L 501.36992, L501.9520, L506.0400 #### [facility] [address] [place], [address] Triglyceride [Mass/Vol] 187 mg/dL Normal [facility] Comment on above: Result Comment: The drugs N-Acetylcysteine and Metamizole may falsely depress this assay. Normal range: <150 mg/dL Borderline High: 150-199 mg/dL High: 200-499 mg/dL Very High: >500 mg/dL Performed By: #### L 501.64857, L501.9520, L506.0400 #### [facility] [address] [place], [place], [address] Potassium measurement (mass/ volume)Ordered By: Alfredo Vasquez on 08-19-2025 Potassium (Unsp spec) [Mass/Vol] 4.8 mmol/L 3.3-5.1 [facility] Screening total cholesterol/ high density lipoprotein (HDL) cholesterol ratioOrdered By: Alfredo Vasquez on 08-19-2025 Cholesterol.total/Choles terol in HDL [Mass ratio] 3.93 {ratio} [facility] Serum creatinine measurement (mass/volume)Ordered By: Alfredo Vasquez on 08-19-2025 Creatinine [Mass/Vol] 1.09 mg/dL 0.70-1.20 [facility] Serum globulin measurementOr dered By: Alfredo Vasquez on 08-19-2025 Globulin (S) [Mass/Vol] 2.5 g/dL 2.2-4.2 [facility] Serum glucose measurement (m ass/volume)Ordered By: Alfredo Vasquez on 08-19-2025 Glucose [Mass/Vol] 94 mg/dL 70-99 [facility] Serum or plasma alanine allen otransferase (ALT) measurementOrdered By: Alfredo Vasquez on 08-19-2025 ALT [Catalytic activity/Vol] 25 U/L <47 [facility] Serum or plasma albumin dex urement (mass/volume)Ordered By: Alfredo Vasquez on 08-19-2025 Albumin [Mass/Vol] 4.1 g/dL 3.4-4.8 [facility] Serum or plasma albumin/glob ulin mass ratioOrdered By: Alfredo Vasquez on 08-19-2025 Albumin/Globulin [Mass ratio] 1.6 {ratio} 0.9-2.4 [facility] Serum or plasma alkaline sarahy sphatase measurementOrdered By: Alfredo Vasquez on 08-19-2025 ALP [Catalytic activity/Vol] 92 U/L 40-129 [facility] Serum or plasma calcium dex urement (mass/volume)Ordered By: Alfredo Vasquez on 08-19-2025 Calcium [Mass/Vol] 9.6 mg/dL 7.6-11.0 [facility] Serum or plasma cholesterol in HDL measurement (mass/volume)Ordered By: Alfredo Vasquez on 08-19-2025 Cholesterol in HDL [Mass/Vol] 40 mg/dL >40 [facility] Comment on above: National Cholesterol Education Program (NCEP) guidelines:<40 mg/dL: Low HDL-cholesterol (major risk factor for CHD)>= 60 mg/dL: High HDL-cholesterol (negative risk factor for CHD)HDL-cholesterol is affected by a number of factors, e.g. smoking, exercise, hormones, sex and age. Serum or plasma cholesterol measurement (mass/volume)Ordered By: Alfredo Vasquez on 08-19-2025 Cholesterol [Mass/Vol] 156 mg/dL <201 [facility] Comment on above: Cholesterol level, D esirable <200 mg/dLBorderline high cholesterol 200-239 mg/dLHigh cholesterol >=240 mg/dLRecommendations of the NCEP Adult Treatment Panel for the following risk-cutoff thresholds for the [place] population. Serum or plasma urea nitroge n measurement (mass/volume)Ordered By: Alfredo Vasquez on 08-19-2025 Urea nitrogen [Mass/Vol] 23 mg/dL High 4-19 [facility] Sodium levelOrdered By: Alfredo Vasquez on 08-19-2025 Sodium [Moles/Vol] 140 mmol/L 133-145 [facility] Total proteinOrdered By: Jyotsna Vasquez on 08-19-2025 Protein [Mass/Vol] 6.6 g/dL 5.9-8.4 [facility] Triglycerides measurementOrd ered By: Alfredo Vasquez on 08-19-2025 Triglyceride [Mass/Vol] 187 mg/dL <199 [facility] Comment on above: The drugs N-Acetylcy steine and Metamizole may falsely depress this assay. Normal range: <150 mg/dLBorderline High: 150-199 mg/dLHigh: 200-499 mg/dLVery High: >500 mg/dL XR CHEST 2 VIEWSon 5 XR CHEST 2 VIEWS Interpreted By: Ethan Guevara, STUDY: XR CHEST 2 VIEWS; 06/23/2025 2:56 pm INDICATION: Signs/Symptoms:evalua te diaphragms. 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 Additional PA dual energy images were also provided. Faintly visualized diaphragmatic pacers. Cervical spine fusion hardware is noted. Stable elevation of the left hemidiaphragm. CARDIOMEDIASTINAL SILHOUETTE: Cardiomediastinal silhouette is stable in size and configuration. LUNGS: Streaky left basilar opacities and blunting of the left costophrenic angle are likely projectional and due to a combination of atelectasis/scarring as well as prominent pericardial fat. Right lung is clear. No evidence of pneumothorax. ABDOMEN: No remarkable upper abdominal findings. BONES: No acute osseous changes. IMPRESSION: 1. Stable elevation of the left hemidiaphragm with left basilar atelectasis/scarring. MACRO: None Signed by: Ethan Guevara 06/23/2025 4:52 PM Dictation workstation: [id number] [facility] XR Chest 2 Viewson 5 1. Stable elevation of the left hemidiaphragm with left basilar atelectasis/scarring. MACRO: None Signed by: Ethan Guevara 06/23/2025 4:52 PM Dictation workstation: [id number] [facility]ODAL Interpreted By: Ethan Guevara, STUDY: XR CHEST 2 VIEWS; 06/23/2025 2:56 pm INDICATION: Signs/Symptoms:evalua te diaphragms. 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 Additional PA dual energy images were also provided. Faintly visualized diaphragmatic pacers. Cervical spine fusion hardware is noted. Stable elevation of the left hemidiaphragm. CARDIOMEDIASTINAL SILHOUETTE: Cardiomediastinal silhouette is stable in size and configuration. LUNGS: Streaky left basilar opacities and blunting of the left costophrenic angle are likely projectional and due to a combination of atelectasis/scarring as well as prominent pericardial fat. Right lung is clear. No evidence of pneumothorax. ABDOMEN: No remarkable upper abdominal findings. BONES: No acute osseous changes. [facility]ODAL Ethan Guevara MD - 06/23/2025 Interpreted By: Ethan Guevara, STUDY: XR CHEST 2 VIEWS; 06/23/2025 2:56 pm INDICATION: Signs/Symptoms:evalua te diaphragms. 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 Additional PA dual energy images were also provided. Faintly visualized diaphragmatic pacers. Cervical spine fusion hardware is noted. Stable elevation of the left hemidiaphragm. CARDIOMEDIASTINAL SILHOUETTE: Cardiomediastinal silhouette is stable in size and configuration. LUNGS: Streaky left basilar opacities and blunting of the left costophrenic angle are likely projectional and due to a combination of atelectasis/scarring as well as prominent pericardial fat. Right lung is clear. No evidence of pneumothorax. ABDOMEN: No remarkable upper abdominal findings. BONES: No acute osseous changes. IMPRESSION: 1. Stable elevation of the left hemidiaphragm with left basilar atelectasis/scarring. MACRO: None Signed by: Ethan Guevara 06/23/2025 4:52 PM Dictation workstation: [id number] [facility] Work Phone: Radiology Study observation (narrative) [facility] Work Phone: XR Chest 2 ViewsOrdered By: Ethan Guevara on 06-23-2025 [facility] Work Phone: 12 Lead EKGon 06-20-2025 12 Lead EKG [facility] Cardiovascular Services [address] [place] [address] 12 Lead EKG 06/20/25 1902 MR#: [id number] Acct: [id number] Name: BHAVNA ROCA Rep #: [id number] : 1945 80 From: Zaki Chávez MD Attending Dr: Status: DEP ER Ordering Dr: Provider,Ed P. Date: 06/20/25 Location: ED Sex: M C Admitted: Test Reason : DYSRHYTHMIA Blood Pressure : */* mmHG Vent. Rate : 90 BPM Atrial Rate : 90 BPM P-R Int : 140 ms QRS Dur : 96 ms QT Int : 350 ms P-R-T Axes : 49 -8 62 degrees QTcB Int : 428 ms Normal sinus rhythm with sinus arrhythmia Inferior infarct (cited on or before 06-Nov-2024) Abnormal ECG Confirmed by ZAKI CHÁVEZ MD ([id number]), editor farm journal DARINEL REES ([id number]) on 06/23/2025 7:00:43 AM Referred By: RU Confirmed By: ZAKI CHÁVEZ MD 06/23/25 0700 Date Zaki Chávez MD CC: Dr. Alfredo Vasquez MD; Dr. Dat Peoples DO; ED PHYSICIAN PROVIDER Signed Normal [facility] Abdomen/Pelvis W IV Cont ONL Yon 06-20-2025 Abdomen/Pelvis W IV Cont ONLY [facility] Imaging Services [address] [place] [address] Abdomen/Pelvis W IV Cont ONLY MR#: [id number] Acct: [id number] Name: BHAVNA ROCA Rep #: [id number] : 1945 M 80 From: Slim Armendariz MD PCP: Dr. Alfredo Vasquez MD Status: REG ER Study: Abdomen/Pelvis W IV Cont ONLY Date of Exam: Exam# [id number] Ordering Dr: Dat Peoples DO PROCEDURE: ABDOMEN/PELVIS W IV CONT ONLY 06/20/2025 REASON FOR EXAM: CHILLS, ABDOMINAL WALL CELLULITIS TECHNIQUE: ABDOMEN/PELVIS W IV CONT ONLY Coronal and Sagittal reconstruction series were provided. CONTRAST: Isovue 370 VOLUME: 100 mL One or more dose reduction techniques were used (e.g., Automated exposure control, adjustment of the mA and/or kV according to patient size, use of iterative reconstruction technique. RADIATION DOSE SUMMARY: CTDlvol: 32.73 mGy DLP: 1358.64 mGycm COMPARISON: 2020 FINDINGS: Lung bases: Chronic interstitial changes with platelike atelectasis in the left lung base. Liver: There is unremarkable aside from a simple 2 cm cyst in the left lobe. No specific follow-up needed. Gallbladder: Surgically absent Spleen: Normal size. Pancreas: Normal size without evidence of mass surrounding inflammation or ductal dilation. Adrenals: Unremarkable Kidneys: No obstructive uropathy or suspicious solid renal lesion. Simple bilateral renal cysts are noted. No specific follow-up needed. Bladder: Unremarkable but there is enlarged prostate impinging upon the inferior aspect of the bladder and there may be bladder outlet issues. Bowel: Nondistended fluid-filled small bowel loops suggestive of ileus. Retained stool noted in the colon with scattered diverticula but no CT evidence of acute diverticulitis. Hyperdensity within the cecum likely represents ingested medication. Appendix: Normal appendix seen on coronal recon images 61 through 69. Lymph nodes: No suspicious mesenteric or retroperitoneal lymph nodes Vasculature: Peripheral calcifications in the abdominal aorta without aneurysm Peritoneum / Retroperitoneum: No free fluid or air Bones: Degenerative bony changes CT/Abdomen/Pelvis W IV Cont ONLY IMPRESSION: No suspicious solid organ abnormality, simple hepatic and renal cysts, no specific follow-up needed. Small-bowel ileus Enlarged prostate impinging upon the inferior aspect of the bladder may be causing bladder outlet issues Scattered colonic diverticula, no CT evidence of acute diverticulitis. No free intraperitoneal fluid, air, or suspicious adenopathy. Normal appendix visualized Reading Location: [facility] CC: Dr. Alfredo Vasquez MD; Dr. Dat Peoples DO Hydraulic Technician: Signed Normal [facility] Absolute lymphocyte countOrd ered By: Dat Peoples on 06-20-2025 Lymphocytes Auto (Unsp spec) [#/Vol] 0.43 10*3/uL Low 0.83-4.51 [facility] Absolute neutrophil countOrd ered By: Dat Shelton on 06-20-2025 Neutrophils (Bld) [#/Vol] 8.5 10*3/uL High 2.0-7.7 [facility] Anion gap in Serum or Plasma Ordered By: Remus Peoples on 06-20-2025 Anion gap [Moles/Vol] 14 mmol/L 5-15 [facility] Automated lymphocyte count a s percentage of total leukocytesOrdered By: Remus Peoples on 06-20-2025 Lymphocytes/100 WBC Auto (Unsp spec) 4.5 % Low 19-41 [facility] BUN/creatinine ratioOrdered By: Lisaus Peoples on 06-20-2025 Urea nitrogen/Creatinine [Mass ratio] 23.3 mg/mg High 10-20 [facility] Basic Metabolic Profile (BMP )on 06-20-2025 BUN/CRE 23.3 RATIO High 10-20 [facility] Comment on above: Performed By: #### L 501.05545, L501.9520, L506.0400 #### [facility] [address] [place], [address] Calcium [Mass/Vol] 9.7 mg/dL Normal 7.6-11.0 [facility] Comment on above: Performed By: #### L 501.90479, L501.9520, L506.0400 #### [facility] [address] [place], [address] Chloride [Moles/Vol] 105 mmol/L Normal 98-108 [facility] Comment on above: Performed By: #### L 501.31434, L501.9520, L506.0400 #### [facility] [address] [place], [address] CO2 [Moles/Vol] 20.8 mmol/L Low 21.0-32.0 [facility] Comment on above: Performed By: #### L 501.23174, L501.9520, L506.0400 #### [facility] [address] [place], [address] Creatinine [Mass/Vol] 1.03 mg/dL Normal 0.70-1.20 [facility] Comment on above: Performed By: #### L 501.66909, L501.9520, L506.0400 #### [facility] [address] [place], [address] ECRCL 76.30 ml/min Normal 50-250 [facility] Comment on above: Performed By: #### L 501.72766, L501.9520, L506.0400 #### [facility] [address] [place], [address] GAP 14 Normal 5-15 [facility] Comment on above: Performed By: #### L 501.10651, L501.9520, L506.0400 #### [facility] [address] [place], [address] GFR/1.73 sq M.predicted among non-blacks MDRD (S/P/Bld) [Vol rate/Area] 74 mL/min/{1.73_m2} Normal >60 [facility] Comment on above: Result Comment: mL/m in/1.73m2 CKD-EPI Creatinine Equation (2020) Performed By: #### L 501.18558, L501.9520, L506.0400 #### [facility] [address] [place], [address] Glucose [Mass/Vol] 113 mg/dL High 70-99 [facility] Comment on above: Performed By: #### L 501.99264, L501.9520, L506.0400 #### [facility] [address] [place], [address] Potassium [Moles/Vol] 3.9 mmol/L Normal 3.3-5.1 [facility] Comment on above: Performed By: #### L 501.24001, L501.9520, L506.0400 #### [facility] [address] [place], [address] Sodium [Moles/Vol] 139 mmol/L Normal 133-145 [facility] Comment on above: Performed By: #### L 501.81294, L501.9520, L506.0400 #### [facility] [address] [place], [address] Urea nitrogen [Mass/Vol] 24 mg/dL High 4-19 [facility] Comment on above: Performed By: #### L 501.43889, L501.9520, L506.0400 #### [facility] [address] [place], [address] Basophil percentageOrdered B y: Dat Peoples on 06-20-2025 Basophils/100 WBC (Bld) 0.1 % 0-1 [facility] Bilirubin Test strip Ql (U)O rdered By: Dat Peoples on 06-20-2025 Bilirubin Ql (U) Negative Negative [facility] CBC W/Diff, Automatedon 08-0 Absolute Lymph 0.43 X10 3/uL Low 0.83-4.51 [facility] Comment on above: Performed By: #### L 501.52404, L501.9520, L506.0400 #### [facility] [address] [place], [address] Absolute Neut 8.5 X10 3/uL High 2.0-7.7 [facility] Comment on above: Performed By: #### L 501.51359, L501.9520, L506.0400 #### [facility] [address] [place], [address] Basophils/100 WBC (Bld) 0.1 % Normal 0-1 [facility] Comment on above: Performed By: #### L 501.59107, L501.9520, L506.0400 #### [facility] [address] [place], [address] Eosinophils/100 WBC (Bld) 1.9 % Normal 0-5 [facility] Comment on above: Performed By: #### L 501.36061, L501.9520, L506.0400 #### [facility] [address] [place], [address] Erythrocyte distribution width (RBC) [Ratio] 12.5 % Normal 11.6-14.6 [facility] Comment on above: Performed By: #### L 501.30544, L501.9520, L506.0400 #### [facility] [address] [place], [address] Hematocrit (Bld) [Volume fraction] 46.2 % Normal 40-54 [facility] Comment on above: Performed By: #### L 501.71875, L501.9520, L506.0400 #### [facility] [address] [place], [address] Hemoglobin (Bld) [Mass/Vol] 15.8 g/dL Normal 13.0-16.5 [facility] Comment on above: Performed By: #### L 501.69543, L501.9520, L506.0400 #### [facility] [address] [place], [address] IG% 0.400 Normal 0.0-0.9 [facility] Comment on above: Result Comment: IG% - Immature Granulocytes (promyelocytes, myelocytes and metamyelocytes) > 1% indicates that a LEFT SHIFT is Present. Performed By: #### L 501.51352, L501.9520, L506.0400 #### [facility] [address] [place], [address] Lymphocytes/100 WBC (Bld) 4.5 % Low 19-41 [facility] Comment on above: Performed By: #### L 501.76984, L501.9520, L506.0400 #### [facility] [address] [place], [address] MCH (RBC) [Entitic mass] 30.9 pg Normal 27.0-32.0 [facility] Comment on above: Performed By: #### L 501.24864, L501.9520, L506.0400 #### [facility] [address] [place], [address] MCHC (RBC) [Mass/Vol] 34.2 g/dL Normal 32-36 [facility] Comment on above: Performed By: #### L 501.43942, L501.9520, L506.0400 #### [facility] [address] [place], [address] MCV (RBC) [Entitic vol] 90.4 fL Normal 80-94 [facility] Comment on above: Performed By: #### L 501.99066, L501.9520, L506.0400 #### [facility] [address] [place], [address] Monocytes/100 WBC (Bld) 5.2 % Normal 0-10 [facility] Comment on above: Performed By: #### L 501.84355, L501.9520, L506.0400 #### [facility] [address] [place], [address] Neutrophils/100 WBC (Bld) 87.9 % High 47-70 [facility] Comment on above: Performed By: #### L 501.75449, L501.9520, L506.0400 #### [facility] [address] [place], [address] Nucleated RBC (Bld) [#/Vol] 0 10*3/uL Normal 0-5 [facility] Comment on above: Performed By: #### L 501.63086, L501.9520, L506.0400 #### [facility] [address] [place], [address] Platelet mean volume (Bld) [Entitic vol] 10.1 fL Normal 6.2-12.0 [facility] Comment on above: Performed By: #### L 501.33333, L501.9520, L506.0400 #### [facility] [address] [place], [address] Platelets (Bld) [#/Vol] 219 10*3/uL Normal 150-450 [facility] Comment on above: Performed By: #### L 501.42851, L501.9520, L506.0400 #### [facility] [address] [place], [address] RBC (Bld) [#/Vol] 5.11 10*6/uL Normal 4.6-6.2 [facility] Comment on above: Performed By: #### L 501.03291, L501.9520, L506.0400 #### [facility] [address] [place], [address] RDW SD 40.9 fl Normal 35.1-43.9 [facility] Comment on above: Performed By: #### L 501.41511, L501.9520, L506.0400 #### [facility] [address] [place], [address] WBC (Bld) [#/Vol] 9.7 10*3/uL Normal 4.4-11.0 [facility] Comment on above: Performed By: #### L 501.70932, L501.9520, L506.0400 #### [facility] [address] [place], [address] Carbon dioxide, total [Moles /volume] in Central venous bloodOrdered By: Dat Peoples on 06-20-2025 CO2 [Moles/Vol] 20.8 mmol/L Low 21.0-32.0 [facility] Chest 1 View (Portable)on Chest 1 View (Portable) [facility] Imaging Services [address] [place] [address] Chest 1 View (Portable) MR#: [id number] Acct: [id number] Name: BHAVNA ROCA Rep #: [id number] : 1945 M 80 From: Emir Em MD PCP: Dr. Alfredo Vasquez MD Status: REG ER Study: Chest 1 View (Portable) Date of Exam: 06/20/25 Exam# [id number] Ordering Dr: Dat Peoples DO PROCEDURE: CHEST 1 VIEW (PORTABLE) 06/20/2025 REASON FOR EXAM: DYSPNEA TECHNIQUE: Frontal view of the chest. COMPARISON: 04/01/2025 FINDINGS: Lungs/Pleura: Elevated left hemidiaphragm with overlying left basilar atelectasis. No definite focal consolidation, pneumothorax, or sizable pleural effusion. Heart/Mediastinum: Mild cardiomegaly. Bones/Soft tissues: Degenerative changes of the spine. Cervical ACDF hardware. RAD/Chest 1 View (Portable) IMPRESSION: Cardiomegaly. Elevated left hemidiaphragm with left basilar atelectasis. This can be seen with hemiparesis of the diaphragm. Reading Location: [id number] CC: Dr. Alfredo Vasquez MD; Dr. Dat Peoples DO Hydraulic Technician: Signed Normal [facility] Chloride assayOrdered By: So Peoples on 06-20-2025 Chloride [Moles/Vol] 105 mmol/L 98-108 [facility] Emergency Department Summary on 06-20-2025 Emergency Department Summary [facility] Medical Records Department [address] [place] [address] Emergency Department Summary 06/20/25 MR#: [id number] Acct: [id number] Name: BHAVNA ROCA Rep #: [id number] : 1945 80 From: Dat Peoples DO PCP: Dr. Alfredo Vasquez MD Status:DEP ER Location: ED HPI History of Present Illness Chief Complaint: Weakness Detail of Chief Complaint: Dyspnea and chills Informant: patient Narrative Narrative: Patient presents the emergency room with complaint of some chills that started this afternoon. He states he felt a little more short of breath than usual. He denies fever although he felt hot. C urrently feels like he is mostly back to baseline. 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 He normally wears home O2. Denies urinary symptoms. 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 Areas been red for months. Mild drainage. [facility] Medical History Coronary artery disease Pericardial effusion without cardiac tamponade Pericarditis Hypercholesterolemia Hypertension Elevated troponin Non-ST elevation NC (NSTEMI) Myocarditis Pericarditis Acute pericardial effusion Chest pain CKD (chronic kidney disease), stage II Obesity History of nephrolithiasis Anxiety and depression Home Medications ???Medication ???Instructions ???Recorded ???Last Taken ???Type aspirin 81 mg chewable tablet 81 mg PO DAILY@0800 blood thinner 11/29/16 07/24/17 History lisinopril 20 mg tablet 20 mg PO DAILY HTN 12/06/16 Unknow n History simvastatin 40 mg tablet 40 mg PO QHS HLD 12/06/16 Unknown History magnesium oxide 250 mg PO DAILY supplement 4 Unknown History multivitamin (Daily Multi-Vitamin 1 tab PO DAILY supplement 4 Unknown History tablet) coQ10 (ubiquinol) 100 mg capsule 200 mg PO QDAY 08/13/24 Unknown Hi story (Qunol Justin CoQ10) colchicine 0.6 mg tablet 0.6 mg PO QDAY #90 tabs 08/13/24 U nknown Rx sertraline 100 mg tablet 100 mg PO DAILY . 03/21/25 Unknown History amlodipine 5 mg tablet 5 mg PO DAILY #90 tabs 05/07/25 Un known Rx Allergy/AdvReac Type Severity Reaction Status Date / Time No Known Allergies Allergy Verified 06/20/25 19:37 Family History Mother Heart disease Hypertension Father Prostate cancer Surgical History History of surgery S/P cholecystectomy History of cochlear implant S/P ureteral stent placement Social History household members: spouse Smoking Status: Never smoker alcohol intake: never substance use type: does not use ROS ROS ED Review of Systems ROS Unobtainable: other Constitutional Constitutional ED: Reports chills and lethargy; Denies fever(s), sweats or weight loss Eyes Eyes: Denies blurry vision, change in vision or diplopia ENT ENT ED: Denies rhinorrhea or sore throat Cardiovascular Cardiovascular: Denies chest pain, orthopnea or racing heartbeat Respiratory/Chest Respiratory/Chest: Reports dyspnea; Denies cough, dyspnea on exertion, orthopnea or sputum Gastrointestinal Gastrointestinal: Denies abdominal pain, diarrhea, nausea or vomiting Genitourinary Genitourinary ED: Denies dysuria, hematuria or urinary frequency Musculoskeletal Musculoskeletal: Denies arthralgias, back pain, myalgias or neck pain Integumentary Denies abscess, Abrasions or rash Neurologic Neurologic: Denies headache(s) or weakness Psychiatric Psychiatric: Denies anxiety, depression or suicidal thoughts Endocrine Endocrinology: Denies polydipsia, polyphagia or polyuria Hematologic/Lymphatic Hematologic/Lymphatic : Denies easy bleeding, easy bruising or lymphadenopathy Allergic/Immunologic Allergic/Immunologic ED: Denies mouth swelling, tongue swelling or urticaria EXAM Physical Exam Const Vital Signs: 06/20/25 18:52 06/20/25 19:00 06/20/25 19:02 Temperature 98.7 F 98.7 F Temperature Source Oral Oral Pulse Rate 78 78 Respiratory Rate 16 16 Respiratory Pattern Normal Blood Pressure 141/63 H 141/63 H Blood Pressure Mean 89 89 Pulse Ox 96 96 Oxygen Delivery Method Nasal Cannula Nasal Cannula Oxygen Flow Rate (L/min) 3 3 06/20/25 19:51 06/20/25 20:00 06/20/25 21:00 Temperature 98.8 F 98.5 F Temperature Source Oral Oral Pulse Rate 80 62 64 Respiratory Rate 18 18 18 Respiratory Pattern Blood Pressure 111/55 L 148/66 H 126/61 H Blood Pressure Mean 73 93 82 Pulse Ox 97 98 98 Oxygen Delive (more content not included)... Normal [facility] Eosinophil percentageOrdered By: Dat Peoples on 06-20-2025 Eosinophils/100 WBC (Bld) 1.9 % 0-5 [facility] Erythrocyte distribution wid th ratioOrdered By: Dat Peoples on 06-20-2025 Erythrocyte distribution width (RBC) [Ratio] 12.5 % 11.6-14.6 [facility] Erythrocyte distribution wid th standard deviationOrdered By: Dat Peoples on 06-20-2025 Erythrocyte distribution width (RBC) [Ratio] 40.9 fl 35.1-43.9 [facility] Glomerular filtration rate ( GFR) estimation/1.73 sq m using serum, plasma, or whole bOrdered By: Dat Peoples on 06-20-2025 GFR/1.73 sq M.predicted among non-blacks MDRD (S/P/Bld) [Vol rate/Area] 74 mL/min/{1.73_m2} >60 [facility] Comment on above: mL/min/1.73m2 CKD-EP I Creatinine Equation (2020) Hematocrit Auto (Bld) [Volum e fraction]Ordered By: Dat Peoples 06-20-2025 Hematocrit (Bld) [Volume fraction] 46.2 % 40-54 [facility] Hemoglobin measurementOrdere d By: Dat Peoples on 06-20-2025 Hemoglobin (Bld) [Mass/Vol] 15.8 g/dL 13.0-16.5 [facility] Immature granulocytes/100 WB C Auto (Bld)Ordered By: Dat Peoples 06-20-2025 Immature granulocytes/100 WBC (Bld) 0.400 % 0.0-0.9 [facility] Comment on above: IG% - Immature Granu locytes (promyelocytes, myelocytes and metamyelocytes) > 1% indicates that a LEFT SHIFT is Present. Ketones Test strip Ql (U)Ord ered By: Dat Peoples on 06-20-2025 Ketones Ql (U) Negative Negative [facility] Lactic Acidon 06-20-2025 Lactate [Moles/Vol] 1.8 mmol/L Normal 0.0-2.0 [facility] Comment on above: Order Comment: N Performed By: #### L 501.27460, L501.9520, L506.0400 #### [facility] [place], [address] Lactic acid measurementOrder ed By: Dat Peoples on 06-20-2025 Lactate [Moles/Vol] 1.8 mmol/L 0.0-2.0 [facility] MCV (mean corpuscular volume ) determinationOrdered By: Dat Peoples on 06-20-2025 MCV (RBC) [Entitic vol] 90.4 fL 80-94 [facility] Mean corpuscular hemoglobin (MCH) determinationOrdered By: Dat Peoples on 06-20-2025 MCH (RBC) [Entitic mass] 30.9 pg 27.0-32.0 [facility] Mean corpuscular hemoglobin concentration (MCHC) determinationOrdered By: Dat Peoples on 06-20-2025 MCHC (RBC) [Mass/Vol] 34.2 g/dL 32-36 [facility] Mean platelet volume determi nationOrdered By: Dat Peoples on 06-20-2025 Platelet mean volume (Bld) [Entitic vol] 10.1 fL 6.2-12.0 [facility] Microscopic analysis of urin e for red blood cells (RBC)Ordered By: Dat Peoples on 06-20-2025 Microscopic analysis of urine for red blood cells (RBC) 0-5 SEEN /hpf 0-5 [facility] Monocyte percentageOrdered B y: Dat Peoples on 06-20-2025 Monocytes/100 WBC (Bld) 5.2 % 0-10 [facility] Mucus LM Ql (Urine sed)Order ed By: Dat Peoples on 06-20-2025 Mucus Ql (Urine sed) 0 SEEN /hpf [facility] Neutrophil percentageOrdered By: Dat Peoples on 08-01-2025 Neutrophils/100 WBC (Bld) 87.9 % High 47-70 [facility] Nitrite Test strip Ql (U)Ord ered By: Dat Peoples on 06-20-2025 Nitrite Ql (U) Negative Negative [facility] Nucleated red blood cell per centageOrdered By: Dat Peoples on 06-20-2025 Nucleated RBC/100 WBC (Bld) [Ratio] 0 % 0-5 [facility] Platelet countOrdered By: So Peoples on 06-20-2025 Platelets (Bld) [#/Vol] 219 10*3/uL 150-450 [facility] Potassium measurement (mass/ volume)Ordered By: Dat Peoples on 06-20-2025 Potassium (Unsp spec) [Mass/Vol] 3.9 mmol/L 3.3-5.1 [facility] Protein Test strip Ql (U)Ord ered By: Dat Peoples on 06-20-2025 Protein Ql (U) 30 mg/dl High Negative [facility] RBC Auto (Bld) [#/Vol]Ordere d By: Dat Peoples on 06-20-2025 RBC (Bld) [#/Vol] 5.11 10*6/uL 4.6-6.2 [facility] Serum creatinine measurement (mass/volume)Ordered By: Dat Peoples on 06-20-2025 Creatinine [Mass/Vol] 1.03 mg/dL 0.70-1.20 [facility] Serum glucose measurement (m ass/volume)Ordered By: Dat Peoples on 06-20-2025 Glucose [Mass/Vol] 113 mg/dL High 70-99 [facility] Serum or plasma calcium dex urement (mass/volume)Ordered By: Dat Peoples on 06-20-2025 Calcium [Mass/Vol] 9.7 mg/dL 7.6-11.0 [facility] Serum or plasma urea nitroge n measurement (mass/volume)Ordered By: Dat Peoples on 06-20-2025 Urea nitrogen [Mass/Vol] 24 mg/dL High 4-19 [facility] Sodium levelOrdered By: María Peoples on 06-20-2025 Sodium [Moles/Vol] 139 mmol/L 133-145 [facility] Squamous epithelial cells de tection in urine sediment by light microscopyOrdered By: Dat Peoples on 06-20-2025 Epithelial cells.squamous LM Ql (Urine sed) 0 SEEN /hpf 0-5 [facility] Urinalysis, Completeon 06-20 RBC 0-5 SEEN Normal 0-5 [facility] Comment on above: Order Comment: N Performed By: #### L 501.02782, L501.9520, L506.0400 #### [facility] [address] [place], [address] WBC 0-5 SEEN Normal 0-5 [facility] Comment on above: Order Comment: N Performed By: #### L 501.66522, L501.9520, L506.0400 #### [facility] [address] [place], [address] BACTERIA 0 SEEN Normal None Seen [facility] Comment on above: Order Comment: N Performed By: #### L 501.34888, L501.9520, L506.0400 #### [facility] [address] [place], [address] EPI,SQUAMOUS 0 SEEN Normal 0-5 [facility] Comment on above: Order Comment: N Performed By: #### L 501.33366, L501.9520, L506.0400 #### [facility] [address] [place], [address] Mucus Ql (Urine sed) 0 SEEN Normal [facility] Comment on above: Order Comment: N Performed By: #### L 501.14137, L501.9520, L506.0400 #### [facility] [address] [place], [address] Urine clarityOrdered By: Lisa Peoples on 06-20-2025 Clarity (U) Clear Clear [facility] Urine color determinationOrd ered By: Dat Peoples on 06-20-2025 Color (U) Yellow Yellow [facility] Urine glucose detectionOrder ed By: Dat Peoples on 06-20-2025 Glucose Ql (U) Normal mg/dl Normal [facility] Urine leukocyte esterase det ection by dipstickOrdered By: Dat Peoples on 06-20-2025 Leukocyte esterase Test strip Ql (U) Negative Negative [facility] Urine pHOrdered By: Dat Martin gur on 06-20-2025 pH (U) 6.0 [pH] 5.0 - 8.0 [facility] Urine sediment bacteria coun t by microscopy (number/high power field)Ordered By: Dat Peoples on 06-20-2025 Bacteria LM.HPF (Urine sed) [#/Area] 0 /[HPF] None Seen [facility] Urine specific gravity measu rementOrdered By: Dat Peoples on 06-20-2025 Specific gravity (U) [Rel density] 1.015 1.002-1.030 [facility] Urine urobilinogen measureme ntOrdered By: Dat Peoples on 06-20-2025 Urobilinogen Ql (U) Normal mg/dl Normal [facility] White blood cell (WBC) count Ordered By: Dat Peoples on 06-20-2025 WBC (Bld) [#/Vol] 9.7 10*3/uL 4.4-11.0 [facility] White blood cell countOrdere d By: Dat Peoples on 06-20-2025 White blood cell count 0-5 SEEN /hpf 0-5 [facility] Anion gap in Serum or Plasma Ordered By: Alfredo Vasquez on 05-08-2025 Anion gap [Moles/Vol] 11 mmol/L 5-15 [facility] BUN/creatinine ratioOrdered By: Alfredo Vasquez on 05-08-2025 Urea nitrogen/Creatinine [Mass ratio] 24.7 mg/mg High 10-20 [facility] Bilirubin, totalOrdered By: Alfredo Vasquez on 05-08-2025 Bilirubin [Mass/Vol] 0.38 mg/dL 0.00-1.30 [facility] Calculated very low density lipoprotein (VLDL) cholesterol measurementOrdered By: Alfredo Vasquez on 05-08-2025 Calculated very low density lipoprotein (VLDL) cholesterol measurement 61 mg/dL High 5-40 [facility] Carbon dioxide, total [Moles /volume] in Central venous bloodOrdered By: Alfredo Vasquez on 05-08-2025 CO2 [Moles/Vol] 25.2 mmol/L 21.0-32.0 [facility] Chloride assayOrdered By: Ash Vasquez on 05-08-2025 Chloride [Moles/Vol] 104 mmol/L 98-108 [facility] Comprehensive Metabolic Prof ilon 05-08-2025 Albumin [Mass/Vol] 4.2 g/dL Normal 3.4-4.8 [facility] Comment on above: Performed By: #### L 500.4100, L500.4050, L501.9940 ####[facility] [address] [place], [address] Albumin/Globulin [Mass ratio] 1.6 {ratio} Normal 0.9-2.4 [facility] Comment on above: Performed By: #### L 500.4100, L500.4050, L501.9940 ####[facility] [address] [place], [address] ALK PHOS 110 U/L Normal 40-129 [facility] Comment on above: Performed By: #### L 500.4100, L500.4050, L501.9940 ####[facility] [address] [place], [address] ALT [Catalytic activity/Vol] 24 U/L Normal <=46 [facility] Comment on above: Performed By: #### L 500.4100, L500.4050, L501.9940 ####[facility] [address] [place], [address] AST [Catalytic activity/Vol] 27 U/L Normal <=37 [facility] Comment on above: Performed By: #### L 500.4100, L500.4050, L501.9940 ####[facility] [address] [place], [address] Bilirubin [Mass/Vol] 0.38 mg/dL Normal 0.00-1.30 [facility] Comment on above: Performed By: #### L 500.4100, L500.4050, L501.9940 ####[facility] [address] [place], [address] BUN/CRE 24.7 RATIO High 10-20 [facility] Comment on above: Performed By: #### L 500.4100, L500.4050, L501.9940 ####[facility] [address] [place], [address] Calcium [Mass/Vol] 9.9 mg/dL Normal 7.6-11.0 [facility] Comment on above: Performed By: #### L 500.4100, L500.4050, L501.9940 ####[facility] [address] [place], [address] Chloride [Moles/Vol] 104 mmol/L Normal 98-108 [facility] Comment on above: Performed By: #### L 500.4100, L500.4050, L501.9940 ####[facility] [address] [place], [address] CO2 [Moles/Vol] 25.2 mmol/L Normal 21.0-32.0 [facility] Comment on above: Performed By: #### L 500.4100, L500.4050, L501.9940 ####[facility] [address] [place], [address] Creatinine [Mass/Vol] 0.99 mg/dL Normal 0.70-1.20 [facility] Comment on above: Performed By: #### L 500.4100, L500.4050, L501.9940 ####[facility] [address] [place], [address] GAP 11 Normal 5-15 [facility] Comment on above: Performed By: #### L 500.4100, L500.4050, L501.9940 ####[facility] [address] [place], [address] GFR/1.73 sq M.predicted among non-blacks MDRD (S/P/Bld) [Vol rate/Area] 79 mL/min/{1.73_m2} Normal >60 [facility] Comment on above: Result Comment: mL/m in/1.73m2 CKD-EPI Creatinine Equation (2020) Performed By: #### L 500.4100, L500.4050, L501.9940 ####[facility] [address] [place], [address] Globulin (S) [Mass/Vol] 2.7 g/dL Normal 2.2-4.2 [facility] Comment on above: Performed By: #### L 500.4100, L500.4050, L501.9940 ####[facility] [address] [place], [address] Glucose [Mass/Vol] 91 mg/dL Normal 70-99 [facility] Comment on above: Performed By: #### L 500.4100, L500.4050, L501.9940 ####[facility] [address] [place], [address] Potassium [Moles/Vol] 4.3 mmol/L Normal 3.3-5.1 [facility] Comment on above: Performed By: #### L 500.4100, L500.4050, L501.9940 ####[facility] [address] [place], [address] Sodium [Moles/Vol] 141 mmol/L Normal 133-145 [facility] Comment on above: Performed By: #### L 500.4100, L500.4050, L501.9940 ####[facility] [address] [place], [address] T PROT 6.8 g/dL Normal 5.9-8.4 [facility] Comment on above: Performed By: #### L 500.4100, L500.4050, L501.9940 ####[facility] [address] [place], [address] Urea nitrogen [Mass/Vol] 24 mg/dL High 03-08 [facility] Comment on above: Performed By: #### L 500.4100, L500.4050, L501.9940 ####[facility] [address] [place], [address] Glomerular filtration rate ( GFR) estimation/1.73 sq m using serum, plasma, or whole bOrdered By: Alfredo Vasquez on 05-08-2025 GFR/1.73 sq M.predicted among non-blacks MDRD (S/P/Bld) [Vol rate/Area] 79 mL/min/{1.73_m2} >60 [facility] Comment on above: mL/min/1.73m2 CKD-EP I Creatinine Equation (2020) LDL calc ser/plasOrdered By: Alfredo Vasquez on 05-08-2025 Cholesterol in LDL [Mass/Vol] 76 mg/dL [facility] Comment on above: Jswqljytvg=450-808 m g/dL & Higher Wzjq=975 mg/dL or greater Laboratory - Chemistry and C hemistry - challengeOrdered By: Alfredo Vasquez on 05-08-2025 AST [Catalytic activity/Vol] 27 U/L <38 [facility] Lipid Profileon 05-08-2025 CHOL:HDL 4.39 Normal [facility] Comment on above: Performed By: #### L 500.4100, L500.4050, L501.9940 ####[facility] [address] [place], [address] Cholesterol [Mass/Vol] 177 mg/dL Normal <=200 [facility] Comment on above: Result Comment: Chol esterol level, Desirable <200 mg/dL Borderline high cholesterol 200-239 mg/dL High cholesterol >=240 mg/dL Recommendations of the NCEP Adult Treatment Panel for the following risk-cutoff thresholds for the [place] population. Performed By: #### L 500.4100, L500.4050, L501.9940 ####[facility] [address] [place], [address] Cholesterol in HDL [Mass/Vol] 40 mg/dL Normal [facility] Comment on above: Result Comment: Malia onal Cholesterol Education Program (NCEP) guidelines: <40 mg/dL: Low HDL-cholesterol (major risk factor for CHD) >= 60 mg/dL: High HDL-cholesterol (negative risk factor for CHD) HDL-cholesterol is affected by a number of factors, e.g. smoking, exercise, hormones, sex and age. Performed By: #### L 500.4100, L500.4050, L501.9940 ####[facility] [address] [place], [address] Cholesterol in LDL [Mass/Vol] 76 mg/dL Normal [facility] Comment on above: Result Comment: Bord ovepxq=671-534 mg/dL Higher Vckw=416 mg/dL or greater Performed By: #### L 500.4100, L500.4050, L501.9940 ####[facility] [address] [place], [address] Cholesterol in VLDL [Mass/Vol] 61 mg/dL High 5-40 [facility] Comment on above: Performed By: #### L 500.4100, L500.4050, L501.9940 ####[facility] [address] [place], [address] Triglyceride [Mass/Vol] 303 mg/dL High [facility] Comment on above: Result Comment: The drugs N-Acetylcysteine and Metamizole may falsely depress this assay. Normal range: <150 mg/dL Borderline High: 150-199 mg/dL High: 200-499 mg/dL Very High: >500 mg/dL Performed By: #### L 500.4100, L500.4050, L501.9940 ####[facility] [address] [place], [place], [address] PSA,Total- Diagnosticon 04-20 PSA, DIAGNOSTIC 2.24 ng/mL Normal 0.00-4.00 [facility] Comment on above: Result Comment: This test was performed using the [employer] tPSA method. Measured values of a patient??sample can vary depending on the testing procedure used. PSA values determined on patient samples by different testing procedures cannot be used interchangeably. If there is a change in PSA assays while monitoring therapy, sequential testing should be performed to confirm baseline values. Performed By: #### L 501.77739, L501.9520, L506.0400 #### [facility] [address] [place], [address] Potassium measurement (mass/ volume)Ordered By: Alfredo Vasquez on 05-08-2025 Potassium (Unsp spec) [Mass/Vol] 4.3 mmol/L 3.3-5.1 [facility] Screening total cholesterol/ high density lipoprotein (HDL) cholesterol ratioOrdered By: Alfredo Vasquez on 05-08-2025 Cholesterol.total/Choles terol in HDL [Mass ratio] 4.39 {ratio} [facility] Serum creatinine measurement (mass/volume)Ordered By: Alfredo Vasquez on 05-08-2025 Creatinine [Mass/Vol] 0.99 mg/dL 0.70-1.20 [facility] Serum globulin measurementOr dered By: Alfredo Vasquez on 05-08-2025 Globulin (S) [Mass/Vol] 2.7 g/dL 2.2-4.2 [facility] Serum glucose measurement (m ass/volume)Ordered By: Alfredo Vasquez on 05-08-2025 Glucose [Mass/Vol] 91 mg/dL 70-99 [facility] Serum or plasma alanine allen otransferase (ALT) measurementOrdered By: Alfredo Vasquez on 05-08-2025 ALT [Catalytic activity/Vol] 24 U/L <47 [facility] Serum or plasma albumin dex urement (mass/volume)Ordered By: Alfredo Vasquez on 05-08-2025 Albumin [Mass/Vol] 4.2 g/dL 3.4-4.8 [facility] Serum or plasma albumin/glob ulin mass ratioOrdered By: Alfredo Vasquez on 05-08-2025 Albumin/Globulin [Mass ratio] 1.6 {ratio} 0.9-2.4 [facility] Serum or plasma alkaline sarahy sphatase measurementOrdered By: Alfredo Vasquez on 05-08-2025 ALP [Catalytic activity/Vol] 110 U/L 40-129 [facility] Serum or plasma calcium dex urement (mass/volume)Ordered By: Alfredo Vasquez on 05-08-2025 Calcium [Mass/Vol] 9.9 mg/dL 7.6-11.0 [facility] Serum or plasma cholesterol in HDL measurement (mass/volume)Ordered By: Alfredo Vasquez on 05-08-2025 Cholesterol in HDL [Mass/Vol] 40 mg/dL >40 [facility] Comment on above: National Cholesterol Education Program (NCEP) guidelines:<40 mg/dL: Low HDL-cholesterol (major risk factor for CHD)>= 60 mg/dL: High HDL-cholesterol (negative risk factor for CHD)HDL-cholesterol is affected by a number of factors, e.g. smoking, exercise, hormones, sex and age. Serum or plasma cholesterol measurement (mass/volume)Ordered By: Alfredo Vasquez on 05-08-2025 Cholesterol [Mass/Vol] 177 mg/dL <201 [facility] Comment on above: Cholesterol level, D esirable <200 mg/dLBorderline high cholesterol 200-239 mg/dLHigh cholesterol >=240 mg/dLRecommendations of the NCEP Adult Treatment Panel for the following risk-cutoff thresholds for the [place] population. Serum or plasma urea nitroge n measurement (mass/volume)Ordered By: Alfredo Vasquez on 05-08-2025 Urea nitrogen [Mass/Vol] 24 mg/dL High 4-19 [facility] Sodium levelOrdered By: Alfredo Vasquez on 05-08-2025 Sodium [Moles/Vol] 141 mmol/L 133-145 [facility] Total proteinOrdered By: Jyotsna Vasquez on 05-08-2025 Protein [Mass/Vol] 6.8 g/dL 5.9-8.4 [facility] Triglycerides measurementOrd ered By: Alfredo Vasquez on 05-08-2025 Triglyceride [Mass/Vol] 303 mg/dL High <199 [facility] Comment on above: The drugs N-Acetylcy steine [...] Pino MD, PhD Advanced Heart Failure Cardiology Software Configuration Managerlemon grower, [facility] [address] Interpreter, [facility] LVAD Program and CCU Millinery Worker, Department of Cardiovascular disease [facility] [place] 7:41 AM 05/06/25 Normal [facility] Cardiac catheterization stud yon 05-06-2025 Normal right heart catheterization No evidence of congestive heart failure, pulmonary hypertension, or constriction Procedure Details Patient was prepped in the typical sterile fashion. Right internal jugular access was obtained under ultrasound guidance with a 7 Tajik sheath. Right heart catheterization was then performed [...] % PA: 70 % Right Heart Cath [place]Jun catheter inserted via right internal jugular vein. [...] of shortness of breath. CV CPACS HEMO [facility] No Panel Informationon 05-06 Performed by: [address] [address] CLIA ID: [id number] Reportable Results: OxyHemoglobin 0 - 100% Expected Ranges: OxyHemoglobin Arterial Sample 95 - 100%* Adequate Oxygenation >=92% Venous sample 60 - 85%* Note: *OxyHemoglobin Reference Ranges based upon literature review Adequate oxygenation based upon [facility] Clinical Decision [facility] Performed by: [facility], [address] [place] [id number] CLIA ID: [id number] Reportable Results: OxyHemoglobin 0 - 100% Expected Ranges: OxyHemoglobin Arterial Sample 95 - 100%* Adequate Oxygenation >=92% Venous sample 60 - 85%* Note: *OxyHemoglobin Reference Ranges based upon literature review Adequate oxygenation based upon [facility] Clinical Decision [facility] Vital signson 05-06-2025 Oxygen saturation in Blood 70 % [facility] Oxygen saturation in Blood 71 % [facility] 36on 04-24-2025 36 No auth needed for RHC CPT 68874 per Traditional Medicare and AARP Medicare Supplement Guidelines Normal [facility] 36 Orders placed Normal [facility] 36 Pt scheduled for RHC with Dr Pino on 05/01/25 @ 7a. Pts H&P/EKG are UTD. Pt will have labs at [facility]. Alison did teach in office. Almaz, please place surg/proc orders Normal [facility] Anion gap in Serum or Plasma on 04-24-2025 Anion gap [Moles/Vol] 11 mmol/L 5- [facility] BUN/creatinine ratioon 04-24 Urea nitrogen/Creatinine [Mass ratio] 21.8 mg/mg High - [facility] Basic Metabolic Profile (BMP )on 04-24-2025 BUN/CRE 21.8 RATIO High 09-08 [facility] Comment on above: Performed By: #### L 100.0500, L500.2500 #### [facility] [address] [place], [address] Calcium [Mass/Vol] 9.6 mg/dL Normal 7.6-11.0 [facility] Comment on above: Performed By: #### L 100.0500, L500.2500 #### [facility] [address] [place], [address] Chloride [Moles/Vol] 106 mmol/L Normal 98-108 [facility] Comment on above: Performed By: #### L 100.0500, L500.2500 #### [facility] [address] [place], [address] CO2 [Moles/Vol] 24.6 mmol/L Normal 21.0-32.0 [facility] Comment on above: Performed By: #### L 100.0500, L500.2500 #### [facility] [address] [place], [address] Creatinine [Mass/Vol] 1.02 mg/dL Normal 0.70-1.20 [facility] Comment on above: Performed By: #### L 100.0500, L500.2500 #### [facility] [address] [place], [address] GAP 11 Normal - [facility] Comment on above: Performed By: #### L 100.0500, L500.2500 #### [facility] [address] [place], [address] GFR/1.73 sq M.predicted among non-blacks MDRD (S/P/Bld) [Vol rate/Area] 76 mL/min/{1.73_m2} Normal >60 [facility] Comment on above: Result Comment: mL/m in/1.73m2 CKD-EPI Creatinine Equation (2020) Performed By: #### L 100.0500, L500.2500 #### [facility] [address] [place], [address] Glucose [Mass/Vol] 107 mg/dL High 70-99 [facility] Comment on above: Performed By: #### L 100.0500, L500.2500 #### [facility] [address] [place], [address] Potassium [Moles/Vol] 4.2 mmol/L Normal 3.3-5.1 [facility] Comment on above: Performed By: #### L 100.0500, L500.2500 #### [facility] [address] [place], [address] Sodium [Moles/Vol] 142 mmol/L Normal 133-145 [facility] Comment on above: Performed By: #### L 100.0500, L500.2500 #### [facility] [address] [place], [address] Urea nitrogen [Mass/Vol] 22 mg/dL High 4-19 [facility] Comment on above: Performed By: #### L 100.0500, L500.2500 #### [facility] [address] [place], [address] CBC-Complete Blood Cnt No Di ffon 04-24-2025 Erythrocyte distribution width (RBC) [Ratio] 12.5 % Normal 11.6-14.6 [facility] Comment on above: Performed By: #### L 100.0500, L500.2500 #### [facility] [address] [place], [address] Hematocrit (Bld) [Volume fraction] 47.1 % Normal 40-54 [facility] Comment on above: Performed By: #### L 100.0500, L500.2500 #### [facility] [address] [place], [address] Hemoglobin (Bld) [Mass/Vol] 15.5 g/dL Normal 13.0-16.5 [facility] Comment on above: Performed By: #### L 100.0500, L500.2500 #### [facility] [address] [place], [address] MCH (RBC) [Entitic mass] 31.3 pg Normal 27.0-32.0 [facility] Comment on above: Performed By: #### L 100.0500, L500.2500 #### [facility] [address] [place], [address] MCHC (RBC) [Mass/Vol] 32.9 g/dL Normal 32-36 [facility] Comment on above: Performed By: #### L 100.0500, L500.2500 #### [facility] [address] [place], [address] MCV (RBC) [Entitic vol] 95.0 fL High 80-94 [facility] Comment on above: Performed By: #### L 100.0500, L500.2500 #### [facility] [address] [place], [address] Platelet mean volume (Bld) [Entitic vol] 10.5 fL Normal 6.2-12.0 [facility] Comment on above: Performed By: #### L 100.0500, L500.2500 #### [facility] [address] [place], [address] Platelets (Bld) [#/Vol] 224 10*3/uL Normal 150-450 [facility] Comment on above: Performed By: #### L 100.0500, L500.2500 #### [facility] [address] [place], [address] RBC (Bld) [#/Vol] 4.96 10*6/uL Normal 4.6-6.2 [facility] Comment on above: Performed By: #### L 100.0500, L500.2500 #### [facility] [address] [place], [address] RDW SD 43.3 fl Normal 35.1-43.9 [facility] Comment on above: Performed By: #### L 100.0500, L500.2500 #### [facility] [address] [place], [address] WBC (Bld) [#/Vol] 6.4 10*3/uL Normal 4.4-11.0 [facility] Comment on above: Performed By: #### L 100.0500, L500.2500 #### [facility] [address] [place], [address] Carbon dioxide, total [Moles /volume] in Central venous bloodon 04-24-2025 CO2 [Moles/Vol] 24.6 mmol/L 21.0-32.0 [facility] Chloride assayon 04-24-2025 Chloride [Moles/Vol] 106 mmol/L 98-108 [facility] Erythrocyte distribution wid th ratioon 04-24-2025 Erythrocyte distribution width (RBC) [Ratio] 12.5 % 11.6-14.6 [facility] Erythrocyte distribution wid th standard deviationon 04-24-2025 Erythrocyte distribution width (RBC) [Ratio] 43.3 fl 35.1-43.9 [facility] Glomerular filtration rate ( GFR) estimation/1.73 sq m using serum, plasma, or whole bon 04-24-2025 GFR/1.73 sq M.predicted among non-blacks MDRD (S/P/Bld) [Vol rate/Area] 76 mL/min/{1.73_m2} >60 [facility] Comment on above: mL/min/1.73m2 CKD-EP I Creatinine Equation (2020) Hematocrit Auto (Bld) [Volum e fraction]on 04-24-2025 Hematocrit (Bld) [Volume fraction] 47.1 % 40-54 [facility] Hemoglobin measurementon Hemoglobin (Bld) [Mass/Vol] 15.5 g/dL 13.0-16.5 [facility] MCV (mean corpuscular volume ) determinationon 04-24-2025 MCV (RBC) [Entitic vol] 95.0 fL High 80-94 [facility] Mean corpuscular hemoglobin (MCH) determinationon 04-24-2025 MCH (RBC) [Entitic mass] 31.3 pg 27.0-32.0 [facility] Mean corpuscular hemoglobin concentration (MCHC) determinationon 04-24-2025 MCHC (RBC) [Mass/Vol] 32.9 g/dL 32-36 [facility] Mean platelet volume determi nationon 04-24-2025 Platelet mean volume (Bld) [Entitic vol] 10.5 fL 6.2-12.0 [facility] Platelet counton 04-24-2025 Platelets (Bld) [#/Vol] 224 10*3/uL 150-450 [facility] Potassium measurement (mass/ volume)on 04-24-2025 Potassium (Unsp spec) [Mass/Vol] 4.2 mmol/L 3.3-5.1 [facility] RBC Auto (Bld) [#/Vol]on RBC (Bld) [#/Vol] 4.96 10*6/uL 4.6-6.2 [facility] Serum creatinine measurement (mass/volume)on 04-24-2025 Creatinine [Mass/Vol] 1.02 mg/dL 0.70-1.20 [facility] Serum glucose measurement (m ass/volume)on 04-24-2025 Glucose [Mass/Vol] 107 mg/dL High 70-99 [facility] Serum or plasma calcium dex urement (mass/volume)on 04-24-2025 Calcium [Mass/Vol] 9.6 mg/dL 7.6-11.0 [facility] Serum or plasma urea nitroge n measurement (mass/volume)on 04-24-2025 Urea nitrogen [Mass/Vol] 22 mg/dL High 4-19 [facility] Sodium levelon 04-24-2025 Sodium [Moles/Vol] 142 mmol/L 133-145 [facility] White blood cell (WBC) count on 04-24-2025 WBC (Bld) [#/Vol] 6.4 10*3/uL 4.4-11.0 [facility] 36on 04-23-2025 36 05/01/[address] [facility] [address] Pino [facility] No Panel Informationon 04-23 Sinus Rhythm [facility] Office Visiton 04-23-2025 Follow-up visit [id number] Bhavna Roca 1945 M Date Provider Department Center 04/23/2025 [id number] PINO SHMG ACH LYNN SHMGCV 95 Ar No family history on file Level of Service:23327 MO OFFICE/OUTPATIENT NEW MODERATE MDM 45 MINUTES Reason for Visit and Comments: New Patient [542] Hypertension [035770] Hyperlipidemia [182] Coronary Artery Disease [187] [facility] 12 Lead EKG performed by [facility] on 04-09-2025 12 Lead EKG performed by [facility] [address] [place] [address] 12 Lead EKG performed by [facility] 04/09/25 1700 MR#: [id number] Acct: [id number] Name: BHAVNA ROCA Rep #: [id number] : 1945 79 From: Jana Blake MD Attending Dr: Dr. Jana Blake MD Status: [facility] Ordering Dr: Jana Blake MD Date: 04/09/25 [place] [facility] [place] M C Admitted: [facility]/12 Lead EKG performed by [facility] ECG Report Interpretation -----Sinus Rhythm NORMAL Electronically signed on 04/09/2025 at 12:[address] Jana Blake [employer] Version [id number] 04/09/25 1212 Date Jana Blake MD CC: Dr. Alfredo Vasquez MD Date Dictated: 04/09/251699 Date Transcribed: 04/09/251699 Hydraulic Technician: Signed Normal [facility] Cardiology Visit Reporton Cardiology Visit Report [facility] [address] [place] [address] OFFICE VISIT Date of Service: 04/09/25 MR#: [id number] Acct: [id number] Name: BHAVNA ROCA Rep #: [id number] : 1945 Provider: Dr. Jana olivares MD Age/Sex: 79/M Location: [facility] [place] Status: Signed HPI HPI History of Present Illness Details: Patient is a very pleasant 79-year-old white male that comes in with his today for an urgent visit. Patient reports that his dyspnea on exertion is becoming more pronounced he has been evaluated by Dr. Iniguez's advanced practitioner. This was after the patient had a left hemidiaphragm stimulator placed at [facility]. The patient been diagnosed with a paralyzed left hemidiaphragm. This does not seem to have improved his dyspnea on exertion in fact it is progressed. The patient reports to me that he was told that they did not think this was a primary pulmonary issue. The patient has a history of pericarditis last fall 2023. We repeated his echocardiogram April 08, 2025 his left ventricular ejection fraction is 65% with normal systolic function he had normal RV size and systolic function normal atria normal mitral valve 1+ tricuspid insufficiency with pulmonary artery systolic pressure estimated 30 to there was mild diffuse aortic valve thickening with no significant stenosis or regurgitation the pulmonic valve was normal the aortic root and pulmonary artery were normal in size as well as the inferior vena cava. There was no pericardial effusion documented. The patient denies any lower extremity edema denies any PND but he does report conversational dyspnea and this was observed in the office today. Patient was short of breath back in October and his hemoglobin was 15.7 at that time I have not rechecked it recently. ECG in the office today showed normal sinus rhythm at 65 bpm otherwise is unremarkable. Intake Vital Signs 03/21/25 08:02 04/09/25 10:11 Height 6 ft 1 in 6 ft 1 in Weight: 231 lb 236 lb BMI 30.4 31.1 BP 123/72 H 117/66 Blood Pressure Location Lt brachial Lt brachial Position Sitting Sitting Respiration 20 H 20 H Pulse 63 67 Pulse Source Monitor Monitor Pulse Oximetry (%) 94 95 Oxygen Delivery Method room air room air Intake Visit Reasons: Shortness of breath Photonics Technician Required: No Accompanied by: Is patient in pain?: No Allergies No Known Allergies Allergy (Verified 04/09/25 10:12) Medications ???Medication ???Instructions ???Recorded ???Confirmed ???Type aspirin 81 mg chewable tablet 81 mg PO DAILY@0800 blood thinner 11/29/16 04/09/25 History lisinopril 20 mg tablet 20 mg PO DAILY HTN 12/06/16 History simvastatin 40 mg tablet 40 mg PO QHS HLD 12/06/16 04/09/25 History magnesium oxide 250 mg PO DAILY supplement 4 04/09/25 History multivitamin (Daily Multi-Vitamin 1 tab PO DAILY supplement 4 04/09/25 History tablet) amlodipine 5 mg tablet 5 mg PO DAILY #90 tabs 08/13/24 Rx coQ10 (ubiquinol) 100 mg capsule 200 mg PO QDAY 08/13/24 04/09/25 H istory (Qunol Justin CoQ10) colchicine 0.6 mg tablet 0.6 mg PO QDAY #90 tabs 08/13/24 0 04/09/25 Rx sertraline 100 mg tablet 100 mg PO DAILY . 03/21/25 5 History Ejection fraction %: 65 Have you fallen in the past year?: No PFSH Medical History Coronary artery disease Pericardial effusion without cardiac tamponade Pericarditis Hypercholesterolemia Hypertension Elevated troponin Non-ST elevation NC (NSTEMI) Myocarditis Pericarditis Acute pericardial effusion Chest pain CKD (chronic kidney disease), stage II Obesity History of nephrolithiasis Anxiety and depression Surgical History History of surgery S/P cholecystectomy History of cochlear implant S/P ureteral stent placement Family History Mother Heart disease Hypertension Father Prostate cancer Social History household members: spouse Smoking Status: Never smoker alcohol intake: never substance use type: does not use ROS Const Const: Negative for fatigue or weakness ENT ENT: Negative for dizziness or balance problems Cardio Chest Pain: No Palpitations: No Edema: None Muscle aches with walking: None Resp Respiratory: Positive for SOB with activity, SOB at rest and SOB orthopnea SOB lying down GI GI: Negative nausea, vomiting or heartburn Musc Musc: Negative for muscle weakness or balance problems Neuro Neuro: Negative for dizziness, lightheadedness, near syncope, syncope or weakness Endo (more content not included)... Normal [facility] Echo Complete W/ Contraston 04-08-2025 Echo Complete W/ Contrast [facility] [address] [place] [address] Echo Complete W/ Contrast 04/08/25 1006 MR#: [id number] Acct: [id number] Name: BHAVNA ROCA Rep #: [id number] : 1945 79 From: Zaki Chávez MD Attending Dr: Sonny Gallardo NP MULE TENDER-C Status: RE G CLI Ordering Dr: Jana Blake MD Date: 04/08/25 Location: [facility] Sex: M C Admitted: Reason For Study [...] push to enhance endocardial definition. MMode/2D Measurements Calculations LVIDd: 4.1 cm IVSd: 0.91 cm Ao root diam: 3.5 cm LVIDs: 2.1 cm LVPWd: 0.88 cm RVDd: 4.6 cm FS: 48.2 % LAV(MOD-bp): 34.4 ml LVAd ap4: 29.4 cm2 [...] MV dec time: 0.28 sec Doppler Measurements Calculations MV E max joann: 67.9 cm/sec [...] Referring Physician: Alfredo Vasquez Performed By: Valentina Benjamin, RDCS, RVT 04/08/25 1553 Date Zaki Chávez MD CC: Sonny DOMINGUEZ NP-C Paulina; Dr. Jana Blake MD; Dr. Alfredo Vasquez MD Date Dictated: 04/08/25 1006 Date Transcribed: 04/08/251552 Hydraulic Technician: Signed Normal [facility] Echocardiogram study reportO rdered By: Zaki Chávez on 04-08-2025 Study report [facility] Cardiovascular Services [address] [place] [address] Echo Complete W/ Contrast 04/08/25 1006 MR#: [id number] Acct: [id number] Name: BHAVNA ROCA Rep #:[id number] : 1945 79 From: Zaki Kenny Attending Dr: Sonny Gallardo NPC Status: REG CLI Ordering Dr: Jana Blake MD Date: 04/08/25 Location: [facility] Sex: M C Admitted: Reason For Study [...] cm RVDd: 4.6 cm FS: 48.2 % LAV(MOD-bp): 34.4 ml LVAd ap4: 29.4 cm2 [...] Referring Physician: Alfredo Vasquez Performed By: Valentina Benjamin, ELAINE, RVT 04/08/25 1553 Date _ Zaki Chávez MD CC: Sonny DOMINGUEZ MULE TENDER-C [place]; Dr. Jana Blake MD; Dr. Alfredo Vasquez MD ~ Date Dictated: 04/08/25 1006 Date Transcribed: 04/08/25 155 Hydraulic Technician: Signed [facility] Work Phone: Chest PA and Lateralon 04-01 Chest PA and Lateral [facility] Imaging Services [address] [place], [place] [address] Chest PA and Lateral MR#: [id number] Acct: [id number] Name: BHAVNA ROCA Rep #: [id number] : 1945 M 79 From: Lm Rain MD PCP: Dr. Alfredo Vasquez MD Status: [facility] CLI Study: Chest PA and Lateral Date of Exam: 04/01/25 Exam# [id number] Ordering Dr: Sonny Gallardo NP, NP PROCEDURE: CHEST PA AND LATERAL 04/01/2025 REASON FOR EXAM: SOB TECHNIQUE: Frontal and lateral views of the chest. COMPARISON: 01/22/2025 FINDINGS: Similar appearance of elevated left hemidiaphragm with left base atelectasis again seen. Faint wires are seen left upper quadrant consistent with stimulator/monitor. The lungs otherwise appear clear. Cardiac and mediastinal contours not significantly change with ectatic thoracic aorta again noted. Partially imaged lower cervical fusion hardware and thoracic spine DISH again noted. RAD/Chest PA and Lateral IMPRESSION: No evidence of acute disease as above. Reading Location: [id number] CC: Sonny Gallardo; Dr. Alfredo Vasquez MD Hydraulic Technician: Signed Normal [facility] Cardiology Visit Reporton Cardiology Visit Report [facility] [address] [place] [address]. [address] [place] [address] OFFICE VISIT Date of Service: 03/21/25 MR#: [id number] Acct: [id number] Name: BHAVNA ROCA Rep #: [id number] : 1945 Provider: Dr. Jana olivares MD Age/Sex: 79/M [place] [facility] [place]: Signed HPI HPI History of Present Illness Details: Patient is a very pleasant 79-year-old white male that comes in with his today for monitoring his cardiovascular status. The patient has a history of mild pericarditis back in July 2024 at that time he had a moderate pericardial effusion that completely resolved on the repeat echo in October 2024 and his LVEF was 65% at that time. Patient was also noted to have an elevated left hemidiaphragm and subsequently was evaluated at [facility] and has received a diaphragm stimulator on February 19, 2025. He says he seems to feel better and have more exertion tolerance but he still does get dyspnea on exertion. He denies any significant PND denies any lower extremity edema. He denies any chest pain syncope or near syncope. The patient reports that he has bendopnea has resolved. The patient did have a heart catheterization August 07, 2020 for which showed a 50% RCA lesion as well as moderate disease in the left main trunk and left anterior descending. The patient reports that his left hemidiaphragm has moved some but it has not recovered is much as they had hoped but they still feel that he has 6 to 12 months before he will see the full effect of this diaphragm stimulator. The patient is also followed by Dr. Iniguez. Intake Vital Signs 11/08/24 08:14 03/21/25 08:02 Height 6 ft 1 in 6 ft 1 in Weight: 231 lb BMI 30.4 BP 123/72 H Blood Pressure Location Lt brachial Position Sitting Respiration 20 H Pulse 63 Pulse Source Monitor Pulse Oximetry (%) 94 Oxygen Delivery Method room air Intake Visit Reasons: 4 M Photonics Technician Required: No Accompanied by: Is patient in pain?: No Allergies No Known Allergies Allergy (Verified 03/21/25 08:03) Medications ???Medication ???Instructions ???Recorded ???Confirmed ???Type aspirin 81 mg chewable tablet 81 mg PO DAILY@0800 blood thinner 11/29/16 03/21/25 History lisinopril 20 mg tablet 20 mg PO DAILY HTN 12/06/16 History simvastatin 40 mg tablet 40 mg PO QHS HLD 12/06/16 03/21/25 History magnesium oxide 250 mg PO DAILY supplement 4 03/21/25 History multivitamin (Daily Multi-Vitamin 1 tab PO DAILY supplement 4 03/21/25 History tablet) amlodipine 5 mg tablet 5 mg PO DAILY #90 tabs 08/13/24 Rx coQ10 (ubiquinol) 100 mg capsule 200 mg PO QDAY 08/13/24 03/21/25 H istory (Qunol Justin CoQ10) colchicine 0.6 mg tablet 0.6 mg PO QDAY #90 tabs 08/13/24 0 03/21/25 Rx sertraline 100 mg tablet 100 mg PO DAILY . 03/21/25 5 History Ejection fraction %: 65 Have you fallen in the past year?: No PFSH Medical History Coronary artery disease Pericardial effusion without cardiac tamponade Pericarditis Hypercholesterolemia Hypertension Elevated troponin Non-ST elevation NC (NSTEMI) Myocarditis Pericarditis Acute pericardial effusion Chest pain CKD (chronic kidney disease), stage II Obesity History of nephrolithiasis Anxiety and depression Surgical History History of surgery S/P cholecystectomy History of cochlear implant S/P ureteral stent placement Family History Mother Heart disease Hypertension Father Prostate cancer Social History household members: spouse Smoking Status: Never smoker alcohol intake: never substance use type: does not use ROS Const Const: Positive for fatigue; Negative for weakness ENT ENT: Negative for dizziness or balance problems Cardio Chest Pain: No Palpitations: No Edema: None Muscle aches with walking: None Resp Respiratory: Positive for SOB with activity; Negative for SOB at rest or SOB orthopnea SOB lying down GI GI: Negative nausea, vomiting or heartburn Musc Musc: Negative for muscle weakness or balance problems Neuro Neuro: Negative for dizziness, lightheadedness, near syncope, syncope or weakness Endo Endo: Positive for fatigue Cardiology Exam Const Appearance: cooperative, comfortable and no acute distress Head Head: normal to inspection Eyes General: appearance normal, both eyes and all related structures Neck Neck: normal visual inspection and no JVD Carotids: Negative bruit Chest Chest inspection: normal inspection of the chest (more content not included)... Normal [facility] Blood type and Indirect anti body screen panel (Bld)on 02-19-2025 ABO group Nom (Bld) O [facility] Blood group antibody screen Ql Negative [facility] D Ag Ql (Bld) Negative [facility] ABO group Nom (Bld) O Normal [facility] Comment on above: Order Comment: For p atient undergoing Aortic, Liver, Cardiac, or Thoracic Surgery OR If instructed by Blood Bank OR If patient hemoglobin is less than 7.5g/dl and no active type and screen. Performed By: #### 3 4532-2 #### CECILE Jimenez ([id number]) [facility] ([facility]) [address] [place] [address] Blood group antibody screen Ql Negative Normal [facility] Comment on above: Order Comment: For p atient undergoing Aortic, Liver, Cardiac, or Thoracic Surgery OR If instructed by Blood Bank OR If patient hemoglobin is less than 7.5g/dl and no active type and screen. Performed By: #### 3 4532-2 #### CECILE Jimenez ([id number]) [facility] ([facility]) [address] [place] [address] D Ag Ql (Bld) Negative Normal [facility] Comment on above: Order Comment: For p atient undergoing Aortic, Liver, Cardiac, or Thoracic Surgery OR If instructed by Blood Bank OR If patient hemoglobin is less than 7.5g/dl and no active type and screen. Performed By: #### 3 4532-2 #### CECILE Jimenez ([id number]) [facility] ([facility]) [address] [place] [address] XR CHEST 1 VIEWon 02-19-2025 XR CHEST 1 VIEW Interpreted By: Carlos Gonzalez and Stevens Alex STUDY: XR CHEST 1 VIEW; 02/19/2025 12:39 pm INDICATION: Signs/Symptoms:s/p diaphragm pacer, r/o PTX. COMPARISON: XR chest 02/06/2025 ACCESSION NUMBER(S): [id number] ORDERING CLINICIAN: JULIA MARTÍNEZ FINDINGS: AP radiograph [...] DO PGY-2. This study was interpreted at [facility], [place], [place]. MACRO: None Signed by: Carlos Gonzalez 02/19/2025 2:04 PM Dictation workstation: [id number] [facility] XR Chest Single viewon 02-19 1. No definite evidence of pneumothorax development following diaphragmatic pacer placement. I personally reviewed the images/study and I agree with the findings as stated by Rakesh Pringle DO PGY-2. This study was interpreted at [facility], [place], [place]. MACRO: None Signed by: Carlos Gonzalez 02/19/2025 2:04 PM Dictation workstation: [id number] MMODAL Interpreted By: Carlos Gonzalez and Stevens Alex STUDY: XR CHEST 1 VIEW; 02/19/2025 12:39 pm INDICATION: Signs/Symptoms:s/p diaphragm pacer, r/o PTX. COMPARISON: XR chest 02/06/2025 ACCESSION NUMBER(S): [id number] ORDERING CLINICIAN: JULIA MARTÍNEZ FINDINGS: AP radiograph [...] PTX. COMPARISON: XR chest 02/06/2025 ACCESSION NUMBER(S): [id number] ORDERING CLINICIAN: JULIA MARTÍNEZ FINDINGS: AP radiograph [...] DO PGY-2. This study was interpreted at [place], [place]. MACRO: None Signed by: Carlos Gonzalez 02/19/2025 2:04 PM Dictation workstation: [id number] [facility] Work Phone: Radiology Study observation (narrative) [facility] Work Phone: XR Chest Single viewOrdered By: Carlos Gonzalez on 02-19-2025 [facility] Work Phone: FL SNIFF TESTon 02-06-2025 FL SNIFF TEST Interpreted By: Marcos Villa and Omar Mahmoud STUDY: FL SNIFF TEST; 02/06/2025 9:36 am INDICATION: Signs/Symptoms:evalua te diaphragms. ACCESSION NUMBER(S): [id number] ORDERING CLINICIAN: МАРИНА MOELLER TECHNIQUE: Fluoroscopic sniff [...] MD (PGY-2). This study was interpreted at [place], [place]. Signed by: Marcos Villa 02/06/2025 3:44 PM Dictation workstation: [id number] Normal [facility] RF Diaphragm for motionon Elevation of the lef t hemidiaphragm with reduced excursion with passive breathing and sniff maneuver. I personally reviewed the images/study and I agree with the findings as stated by Bryan Bess MD (PGY-2). This study was interpreted at [place], [place]. Signed by: Marcos Villa 02/06/2025 3:44 PM Dictation workstation: [id number] MMODAL Interpreted By: Marcos Villa and Omar Mahmoud STUDY: FL SNIFF TEST; 02/06/2025 9:36 am INDICATION: Signs/Symptoms:evalua te diaphragms. ACCESSION NUMBER(S): [id number] ORDERING CLINICIAN: МАРИНА MOELLER TECHNIQUE: Fluoroscopic sniff [...] Negative (normal result) OTHER: N / A MMODAL Marcos Villa MD - 02/06/2025 Interpreted By: Marcos Villa and Omar Mahmoud STUDY: FL SNIFF TEST; 02/06/2025 9:36 am INDICATION: Signs/Symptoms:evalua te diaphragms. ACCESSION NUMBER(S): [id number] ORDERING CLINICIAN: МАРИНА MOELLER TECHNIQUE: Fluoroscopic sniff [...] MD (PGY-2). This study was interpreted at [place], [place]. Signed by: Marcos Villa 02/06/2025 3:44 PM Dictation workstation: [id number] [facility] Work Phone: Radiology Study observation (narrative) [facility] Work Phone: RF Diaphragm for motionOrder ed By: Marcos Villa on 02-06-2025 [facility] Work Phone: XR CHEST 2 VIEWSon 5 XR CHEST 2 VIEWS Interpreted By: Jana Castano, STUDY: XR CHEST 2 VIEWS; ; 02/06/2025 9:42 am INDICATION: Signs/Symptoms:evalua te diaphragms. COMPARISON: 08/07/2019 ACCESSION NUMBER(S): [id number] ORDERING CLINICIAN: МАРИНА MOELLER TECHNIQUE: 2 radiographs [...] Jana Castano 02/06/2025 6:35 PM Dictation workstation: [id number] Normal [facility] XR Chest 2 Viewson 5 Elevation of the lef t hemidiaphragm, increased from 08/07/2019. Linear areas of atelectasis in the left lung base. Mild cardiomegaly. MACRO: None Signed by: Jana Castano 02/06/2025 6:35 PM Dictation workstation: [id number] MMODAL Interpreted By: Jana Castano, STUDY: XR CHEST 2 VIEWS; ; 02/06/2025 9:42 am INDICATION: Signs/Symptoms:evalua te diaphragms. COMPARISON: 08/07/2019 ACCESSION NUMBER(S): [id number] ORDERING CLINICIAN: МАРИНА MOELLER TECHNIQUE: 2 radiographs of the chest were performed. FINDINGS: Elevation of left hemidiaphragm which is increased in the interval. There is linear areas of atelectasis in the left lung base. The right lung is clear. The heart is enlarged. The pulmonary vessels are within normal limits. There is no pneumothorax. MMODAL Kendy Castano MD - 02/06/2025 Interpreted By: Jana Castano, STUDY: XR CHEST 2 VIEWS; ; 02/06/2025 9:42 am INDICATION: Signs/Symptoms:evalua te diaphragms. COMPARISON: 08/07/2019 ACCESSION NUMBER(S): [id number] ORDERING CLINICIAN: МАРИНА MOELLER TECHNIQUE: 2 radiographs [...] Jana Castano 02/06/2025 6:35 PM Dictation workstation: [id number] [facility] Work Phone: Radiology Study observation (narrative) [facility] Work Phone: XR Chest 2 ViewsOrdered By: Kendy Castano on 02-06-2025 [facility] Work Phone: Free T3on 01-31-2025 Free T3 [Mass/Vol] 3.0 pg/mL Normal 2.18-3.98 [facility] Comment on above: Order Comment: N Performed By: #### L 501.62982, L501.9520, L506.0400 #### [facility] [address] [place], [address] Free Q5Lscuuha By: Alfredo perez on 01-31-2025 Free T3 [Mass/Vol] 3.0 pg/mL 2.18-3.98 [facility] Free Triiodothyronine (T3) pg/dL 3.0 pg/mL 2.18-3.98 [facility] T4 Free Directon 01-31-2025 T4 FREE DIRECT 1.00 ng/dL Normal 0.76-1.46 [facility] Comment on above: Order Comment: N Performed By: #### L 501.84520, L501.9520, L506.0400 #### [facility] [address] [place], [address] T4 freeOrdered By: Alfredo perez on 01-31-2025 Free T4 [Mass/Vol] 1.00 ng/dL 0.76-1.46 [facility] TSH DL <= 0.005 mIU/L QnOrde red By: Alfredo Vasquez on 01-31-2025 Thyroid Stimulating Hormone (TSH) 2.020 uIU/mL 0.300-4.200 [facility] TSH Qn 2.020 uIU/mL 0.300-4.200 [facility] Thyroid Stim Hormone (TSH)on 01-31-2025 TSH 2.020 uIU/mL Normal 0.300-4.200 [facility] Comment on above: Performed By: #### L 501.64752, L501.9520, L506.0400 #### [facility] [address] [place], [address] Fluoroscopy 1 Hr or Lesson 0 01-28-2025 Fluoroscopy 1 Hr or Less [facility] Imaging Services [address] [place] [address] Fluoroscopy 1 Hr or Less MR#: [id number] Acct: [id number] Name: BHAVNA ROCA Rep #: [id number] : 1945 M 79 From: Germán nugent MD PCP: Dr. Alfredo Vasquez MD Status: REG CLI Study: Fluoroscopy 1 Hr or Less Date of Exam: 5 Exam# [id number] Ordering Dr: Lm Hill MD PROCEDURE: FLUOROSCOPY [...] limited movement during inspiration expiration. Reading Location: [place] [address] CC: Dr. Alfredo Vasquez MD; Dr. Lm Hill MD Hydraulic Technician: Signed Normal [facility] Chest PA and Lateralon 01-22 Chest PA and Lateral [facility] Imaging Services [address] [place] [id number] Chest PA and Lateral MR#: [id number] Acct: [id number] Name: BHAVNA ROCA Rep #: [id number] : 1945 M 79 From: Reagan Kenny PCP: Dr. Alfredo Vasquez MD Status: REG CLI Study: Chest PA and Lateral Date of Exam: 01/22/25 Exam# [id number] Ordering Dr: Lm Hill MD PROCEDURE: CHEST [...] are seen, along with DISH. Reading Location: [address] CC: Dr. Alfredo Vasquez MD; Dr. Lm Hill MD Hydraulic Technician: Signed Normal [facility] Cardiology Visit Reporton Cardiology Visit Report [facility] [address] [place] [address] OFFICE VISIT Date of Service: 11/08/24 MR#: [id number] Acct: [id number] Name: BHAVNA ROCA Rep #: [id number] : 1945 Provider: ASH Matos Age/Sex: 79/M Location: [facility] [place] Status: Signed HPI HPI History of Present Illness Details: Bhavna Roca is a 79-year-old white male with a history of myopericarditis and moderate coronary artery disease. Patient was admitted to the hospital on the evening of 08/02/2024 with chest pain consistent with pericarditis. He had a CTA done which showed no pulmonary emboli no thoracic aortic aneurysm or dissection he had an elevated left hemidiaphragm with left basilar atelectasis but no infiltrates or effusions he had a small to moderate pericardial effusion documented. An echocardiogram was done 08/03/2024 which showed an ejection fraction of 65% no diastolic dysfunction and a moderate pericardial effusion with no evidence of cardiac tamponade. This was repeated 48 hours later which showed no change in the effusion. The patient returned on 08/07/2024 at that time he had a subsequent limited echo which showed no change in the pericardial effusion he also was taken to the [facility] due to chest symptoms he had moderate three-vessel disease with 50% ostial RCA 50% distal left main 50% proximal circumflex and 40 to 50% mid LAD lesions documented. Since that time the patient has had no recurrence of his chest discomfort he does continue to notice dyspnea on exertion as noted above. He denies any significant lower extremity edema. Patient was seen in the emergency room on November 06, 2024 for shortness of breath. Pt is SOB with exertion. He is able to lay flat without issues. At times it is really bad. He does have a dry cough. He does not have any chest pain/heaviness. He does not have any lightheadedness/dizzi ness. He does not have any swelling in his legs, but feels that he is bloated. He is down 13 lbs. he states his shortness of breath has worsened over the last 2 weeks. He is only taking his colchicine once day d/t diarrhea. CBC is normal, renal function normal, BNP normal. Chest x-ray normal. CRP still elevated but much less when compared to previous. CRP is 35. Intake Vital Signs 08/13/24 14:37 11/06/24 18:16 11/08/24 08:14 Height 6 ft 1 in 6 ft 1 in 6 ft 1 in Weight: 220 lb BMI 29.0 BP 114/72 Blood Pressure Location Lt brachial Position Sitting Respiration 18 Pulse 69 Pulse Source Monitor Pulse Oximetry (%) 94 Intake Visit Reasons: 3 M FU Photonics Technician Required: No Is patient in pain?: No Allergies No Known Allergies Allergy (Verified 11/08/24 08:25) Medications ???Medication ???Instructions ???Recorded ???Confirmed ???Type aspirin 81 mg chewable tablet 81 mg PO DAILY@0800 blood thinner 11/29/16 11/08/24 History lisinopril 20 mg tablet 20 mg PO DAILY HTN 12/06/16 11/08/24 History simvastatin 40 mg tablet 40 mg PO QHS HLD 12/06/16 11/08/24 History magnesium oxide 250 mg PO DAILY supplement 08/03/24 11/08/24 History multivitamin (Daily Multi-Vitamin 1 tab PO DAILY supplement 08/03/24 11/08/24 History tablet) sertraline 100 mg tablet 200 mg PO DAILY . 08/03/24 11/08/24 History amlodipine 5 mg tablet 5 mg PO DAILY #90 tabs 08/13/24 11/08/24 Rx coQ10 (ubiquinol) 100 mg capsule 200 mg PO QDAY 08/13/24 11/08/24 History (Qunol Justin CoQ10) colchicine 0.6 mg tablet 0.6 mg PO QDAY #90 tabs 08/13/24 11/08/24 Rx potassium chloride 10 mEq 10 meq PO DAILY #90 tabs 10/10/24 11/08/24 Rx tablet,extended release furosemide 20 mg tablet 20 mg PO DAILY #90 tabs 11/04/24 11/08/24 Rx Have you fallen in the past year?: No PFSH Medical History Coronary artery disease Pericardial effusion without cardiac tamponade Pericarditis Hypercholesterolemia Hypertension Elevated troponin Non-ST elevation NC (NSTEMI) Myocarditis Pericarditis Acute pericardial effusion Chest pain CKD (chronic kidney disease), stage II Obesity History of nephrolithiasis Anxiety and depression Surgical History S/P cholecystectomy History of cochlear implant S/P ureteral stent placement Family History Mother Heart disease Hypertension Father Prostate cancer Social History household members: spouse Smoking Status: Never smoker alcohol intake: never substance use type: does not use ROS Const Const: Positive for fatigue; Negative for weakness or headache(s) Eyes Eyes: Negative for change in vision ENT ENT: P (more content not included)... Normal [facility] Echo Completeon 11-08-2024 Echo [facility] Cardiovascular Services [address] [place] [address] Echo Complete 11/08/24 0855 MR#: [id number] Acct: [id number] Name: BHAVNA ROCA Rep #: [id number] : 1945 79 From: Zaki Chávez MD Attending Dr: ASH Espino Status: REG CLI Ordering Dr: Almaz Valladares Date: 10/21 Location: [facility] Sex: M C Admitted: Reason For Study: SHORTNESS OF BREATH Procedure This was a 2D Doppler, Color Flow transthoracic echocardiogram. Exam performed in department. Left Ventricle Normal LV size. Left ventricular systolic function is normal. The left ventricular ejection fraction is 65 %. No regional wall motion abnormalities noted. Right Ventricle Normal RV size. Normal systolic function. Atria Normal left atrium. Normal right atrium. Mitral Valve Normal mitral valve. Tricuspid Valve Normal tricuspid valve. Aortic Valve Trisinus/trileaflet aortic valve. Great Vessels Normal aortic root. The pulmonary artery is normal size. Pericardium/Pleural No pericardial effusion. MMode/2D Measurements Calculations LVIDd: 4.4 cm IVSd: 1.2 cm LVOT diam: 2.0 cm LVIDs: 2.3 cm LVPWd: 1.1 cm LVOT area: 3.2 cm2 RVDd: 3.7 cm FS: 48.2 % asc Aorta Diam: 3.5 cm LAV(MOD-sp4): 46.7 ml LVAd ap4: 28.1 cm2 LVLd ap4: 8.2 cm EDV(MOD-sp4): 78.9 ml EDV(sp4-el): 81.9 ml LVAs ap4: 16.5 cm2 LVLs ap4: 6.7 cm ESV(MOD-sp4): 35.5 ml ESV(sp4-el): 34.6 ml EF(MOD-sp4): 55.0 % EF(sp4-el): 57.8 % SV(MOD-sp4): 43.4 ml SV(MOD-sp2): 41.1 ml LVAd ap2: 25.9 cm2 LVLd ap2: 7.8 cm SI(MOD-sp4): 18.9 ml/m2 SI(MOD-sp2): 17.9 ml/m2 EDV(MOD-sp2): 70.5 ml EDV(sp2-el): 73.0 ml LVAs ap2: 16.2 cm2 LVLs ap2: 7.2 cm ESV(MOD-sp2): 29.4 ml ESV(sp2-el): 30.8 ml EF(MOD-sp2): 58.3 % SV(sp4-el): 47.3 ml Ao sinus diam: 3.[address] Junction: 3.0 cm LA A4 area: 18.4 cm2 LA dimension(2D): 3.9 cm RA A4 area: 12.3 cm2 TAPSE: 1.9 cm Time Measurements MV dec time: 0.24 sec Doppler Measurements Calculations MV E max joann: 74.9 cm/sec Lat Peak E' Joann: 8.2 cm/sec Med Peak E' Joann: 9.6 cm/sec MV A max joann: 83.0 cm/sec E/E' lat: 9.1 E/E' med: 7.8 MV E/A: 0.90 Ao V2 max: 136.7 cm/sec LV V1 max: 114.4 cm/sec MV dec slope: 311.0 cm/sec2 Ao max P.5 mmHg LV V1 max P.2 mmHg Ao V2 mean: 95.3 cm/sec LV V1 mean P.6 mmHg Ao mean P.0 mmHg LV V1 mean: 75.5 cm/sec Ao V2 VTI: 28.7 cm LV V1 VTI: 26.7 cm AV (velocity ratio): 0.93 RAMIREZ(I,D): 3.0 cm2 RAMIREZ(V,D): 2.7 cm2 SV(LVOT): 86.6 ml PA V2 max: 167.9 cm/sec TR max joann: 260.0 cm/sec TR max P.0 mmHg ECHO/Echo Complete Interpretation Summary Normal LV size. Left ventricular systolic function is normal. The left ventricular ejection fraction is 65 %. No pericardial effusion. Ordering Physician: Almaz Valladares Referring Physician: Alfredo Vasquez Performed By: Dilia Recinos RDCS 11/08/24 1502 Date Zaki Chávez MD CC: Dr. Alfredo Vasquez MD; ASH Espino Date Dictated: 11/08/24 0855 Date Transcribed: 11/08/24 1502 Hydraulic Technician: Signed [place] [address] Lead EKGon 11-06-2024 12 Lead EKG [facility] Cardiovascular Services [address] [place] [address] 12 Lead EKG 11/06/24 1836 MR#: [id number] Acct: [id number] Name: BHAVNA ROCA Rep #: [id number] : 1945 79 From: Zaki Chávez MD Attending Dr: Status: DEP ER Ordering Dr: Delmar Wild MD Date: 11/06/24 Location: ED Sex: M C Admitted: Test Reason : DYSRHYTHMIA Blood Pressure : */* mmHG Vent. Rate : 78 BPM Atrial Rate : 78 BPM P-R Int : 136 ms QRS Dur : 96 ms QT Int : 360 ms P-R-T Axes : 52 7 65 degrees QTcB Int : 410 ms Normal sinus rhythm Inferior infarct , age undetermined Abnormal ECG Confirmed by ZAKI CHÁVEZ MD ([id number]), editor farm journal ROSA PEREZ ([id number]) on 11/07/2024 10:59:55 AM Referred By: Confirmed By: ZAKI CHÁVEZ MD 11/07/24 105 Date Zaki Chávez MD CC: Dr. Alfredo Vasquez MD; Dr. Delmar Wild MD Signed [facility] Absolute neutrophil countOrd ered By: Delmar Wild on 11-06-2024 Neutrophils (Bld) [#/Vol] 7.9 10*3/uL High 2.0-7.7 [facility] Albumin to globulin ratioOrd ered By: Delmar Wild on 11-06-2024 Albumin/Globulin [Mass ratio] 1.0 {ratio} 0.9-2.4 [facility] Basophil percentageOrdered B y: Delmar Wild on 11-06-2024 Basophils/100 WBC (Bld) 0.3 % 0-1 [facility] Bilirubin, totalOrdered By: Delmar Wild on 11-06-2024 Bilirubin [Mass/Vol] 0.80 mg/dL 0.20-1.00 [facility] Comment on above: For patients on eltr ombopag therapy, use of Dimension [place] TBIL is not recommended. Blood urea nitrogen (BUN)/cr eatinine ratioOrdered By: Delmar Wild on 11-06-2024 Urea nitrogen/Creatinine [Mass ratio] 20.3 mg/mg High 10-20 [facility] C-reactive protein measureme nt by high sensitivity methodOrdered By: Delmar Wild on 11-06-2024 C-Reactive Protein Extended Range 35.10 mg/L High 0.0-3.0 [facility] Comment on above: C-Reactive Protein ( CRP) provides useful information for thediagnosis, therapy and monitoring of inflammatory processesand associated diseases. For the evaluation of Relative Riskfor Cardiovascular Disease, a High Sensitivity CRP (HSCRP)should be ordered. CBC W/Diff, Automatedon 10-20 Absolute Lymph 1.25 X10 3/uL Normal 0.83-4.51 [facility] Comment on above: Performed By: #### L 501.6710, L501.4020, L101.9900, L500.4050, L503.6005, L100.0100 ####[facility] [address] [place], [address] Absolute Neut 7.9 X10 3/uL High 2.0-7.7 [facility] Comment on above: Performed By: #### L 501.6710, L501.4020, L101.9900, L500.4050, L503.6005, L100.0100 ####[facility] [address] [place], [address] Basophils/100 WBC (Bld) 0.3 % Normal 0-1 [facility] Comment on above: Performed By: #### L 501.6710, L501.4020, L101.9900, L500.4050, L503.6005, L100.0100 ####[facility] [address] [place], [address] Eosinophils/100 WBC (Bld) 1.3 % Normal 0-5 [facility] Comment on above: Performed By: #### L 501.6710, L501.4020, L101.9900, L500.4050, L503.6005, L100.0100 ####[facility] [address] [place], [address] Erythrocyte distribution width (RBC) [Ratio] 14.5 % Normal 11.6-14.6 [facility] Comment on above: Performed By: #### L 501.6710, L501.4020, L101.9900, L500.4050, L503.6005, L100.0100 ####[facility] [address] [place], [address] Hematocrit (Bld) [Volume fraction] 47.1 % Normal 40-54 [facility] Comment on above: Performed By: #### L 501.6710, L501.4020, L101.9900, L500.4050, L503.6005, L100.0100 ####[facility] [address] [place], [address] Hemoglobin (Bld) [Mass/Vol] 15.7 g/dL Normal 13.0-16.5 [facility] Comment on above: Performed By: #### L 501.6710, L501.4020, L101.9900, L500.4050, L503.6005, L100.0100 ####[facility] [address] [place], [address] IG% 0.400 Normal 0.0-0.9 [facility] Comment on above: Result Comment: IG% - Immature Granulocytes (promyelocytes, myelocytes and metamyelocytes) > 1% indicates that a LEFT SHIFT is Present. Performed By: #### L 501.6710, L501.4020, L101.9900, L500.4050, L503.6005, L100.0100 ####[facility] [address] [place], [address] Lymphocytes/100 WBC (Bld) 12.0 % Low 19-41 [facility] Comment on above: Performed By: #### L 501.6710, L501.4020, L101.9900, L500.4050, L503.6005, L100.0100 ####[facility] [address] [place], [address] MCH (RBC) [Entitic mass] 30.0 pg Normal 27.0-32.0 [facility] Comment on above: Performed By: #### L 501.6710, L501.4020, L101.9900, L500.4050, L503.6005, L100.0100 ####[facility] [address] [place], [address] MCHC (RBC) [Mass/Vol] 33.3 g/dL Normal 32-36 [facility] Comment on above: Performed By: #### L 501.6710, L501.4020, L101.9900, L500.4050, L503.6005, L100.0100 ####[facility] [address] [place], [address] MCV (RBC) [Entitic vol] 90.1 fL Normal 80-94 [facility] Comment on above: Performed By: #### L 501.6710, L501.4020, L101.9900, L500.4050, L503.6005, L100.0100 ####[facility] [address] [place], [address] Monocytes/100 WBC (Bld) 10.0 % Normal 0-10 [facility] Comment on above: Performed By: #### L 501.6710, L501.4020, L101.9900, L500.4050, L503.6005, L100.0100 ####[facility] [address] [place], [address] Neutrophils/100 WBC (Bld) 76.0 % High 47-70 [facility] Comment on above: Performed By: #### L 501.6710, L501.4020, L101.9900, L500.4050, L503.6005, L100.0100 ####[facility] [address] [place], [address] Nucleated RBC (Bld) [#/Vol] 0 10*3/uL Normal 0-5 [facility] Comment on above: Performed By: #### L 501.6710, L501.4020, L101.9900, L500.4050, L503.6005, L100.0100 ####[facility] [address] [place], [address] Platelet mean volume (Bld) [Entitic vol] 10.3 fL Normal 6.2-12.0 [facility] Comment on above: Performed By: #### L 501.6710, L501.4020, L101.9900, L500.4050, L503.6005, L100.0100 ####[facility] [address] [place], [address] Platelets (Bld) [#/Vol] 246 10*3/uL Normal 150-450 [facility] Comment on above: Performed By: #### L 501.6710, L501.4020, L101.9900, L500.4050, L503.6005, L100.0100 ####[facility] [address] [place], [address] RBC (Bld) [#/Vol] 5.23 10*6/uL Normal 4.6-6.2 [facility] Comment on above: Performed By: #### L 501.6710, L501.4020, L101.9900, L500.4050, L503.6005, L100.0100 ####[facility] [address] [place], [address] RDW SD 47.2 fl High 35.1-43.9 [facility] Comment on above: Performed By: #### L 501.6710, L501.4020, L101.9900, L500.4050, L503.6005, L100.0100 ####[facility] [address] [place], [address] WBC (Bld) [#/Vol] 10.4 10*3/uL Normal 4.4-11.0 [facility] Comment on above: Performed By: #### L 501.6710, L501.4020, L101.9900, L500.4050, L503.6005, L100.0100 ####[facility] [address] [place], [address] CRPon 11-06-2024 C-REACTIVE PROT 35.10 mg/L High 0.0-3.0 [facility] Comment on above: Order Comment: 'TROP ' Serial specimen #1, #2 or #3: 1 Result Comment: C-Re active Protein (CRP) provides useful information for the diagnosis, therapy and monitoring of inflammatory processes and associated diseases. For the evaluation of Relative Risk for Cardiovascular Disease, a High Sensitivity CRP (HSCRP) should be ordered. Performed By: #### L 501.6710, L501.4020, L101.9900, L500.4050, L503.6005, L100.0100 ####[facility] [address] [place], [address] Carbon dioxide measurementOr dered By: Delmar Wild on 11-06-2024 CO2 [Moles/Vol] 25.0 mmol/L 21.0-32.0 [facility] Chest PA and Lateralon 11-06 Chest PA and Lateral [facility] Imaging Services [address] [place] [address] Chest PA and Lateral MR#: [id number] Acct: [id number] Name: BHAVNA ROCA Rep #: [id number] : 1945 M 79 From: Danny Wilkerson DO PCP: Dr. Alfredo Vasquez MD Status: REG ER Study: Chest PA and Lateral Date of Exam: 11/06/24 Exam# [id number] Ordering Dr: Delmar Wild MD [id number] INDICATION: Dyspnea and tachypnea EXAMINATION/TECHNIQUE : X-RAY - XR Chest 2 Views COMPARISON: November 01, 2024 __ FINDINGS: LINES/DEVICES: None. LUNGS: No consolidation, edema or effusion. Basilar atelectasis. No pneumothorax. MEDIASTINUM AND CARDIOVASCULAR STRUCTURES: Cardiac silhouette not enlarged. Central airways and mediastinal contour are unremarkable. BONES AND SOFT TISSUES: Mild degenerative vertebral changes. Status post surgical fusion of the lower cervical levels. RAD/Chest PA and Lateral IMPRESSION: Basilar atelectasis. Electronically Signed: Danny Wilkerson DO at 19:16 EST Reading Location ID and State: [facility] / [place] Tel [phone], Service support , CC: Dr. Alfredo Vasquez MD; Dr. Delmar Wild MD Hydraulic Technician: Signed Normal [facility] Chloride measurementOrdered By: Delmar Wild on 11-06-2024 Chloride [Moles/Vol] 106 mmol/L 98-107 [facility] Comprehensive Metabolic Prof ilon 11-06-2024 Albumin [Mass/Vol] 3.4 g/dL Normal 3.2-5.0 [facility] Comment on above: Order Comment: 'TROP ' Serial specimen #1, #2 or #3: 1 Performed By: #### L 501.6710, L501.4020, L101.9900, L500.4050, L503.6005, L100.0100 ####[facility] [address] [place], [address] Albumin/Globulin [Mass ratio] 1.0 {ratio} Normal 0.9-2.4 [facility] Comment on above: Order Comment: 'TROP ' Serial specimen #1, #2 or #3: 1 Performed By: #### L 501.6710, L501.4020, L101.9900, L500.4050, L503.6005, L100.0100 ####[facility] [address] [place], [address] ALK P 96 U/L Normal 45-117 [facility] Comment on above: Order Comment: 'TROP ' Serial specimen #1, #2 or #3: 1 Performed By: #### L 501.6710, L501.4020, L101.9900, L500.4050, L503.6005, L100.0100 ####[facility] [address] [place], [address] ALT [Catalytic activity/Vol] 32 U/L Normal 16-61 [facility] Comment on above: Order Comment: 'TROP ' Serial specimen #1, #2 or #3: 1 Performed By: #### L 501.6710, L501.4020, L101.9900, L500.4050, L503.6005, L100.0100 ####[facility] [address] [place], [address] AST [Catalytic activity/Vol] 22 U/L Normal 15-37 [facility] Comment on above: Order Comment: 'TROP ' Serial specimen #1, #2 or #3: 1 Performed By: #### L 501.6710, L501.4020, L101.9900, L500.4050, L503.6005, L100.0100 ####[facility] [address] [place], [address] Bilirubin [Mass/Vol] 0.80 mg/dL Normal 0.20-1.00 [facility] Comment on above: Order Comment: 'TROP ' Serial specimen #1, #2 or #3: 1 Result Comment: For patients on eltrombopag therapy, use of Dimension [place] TBIL is not recommended. Performed By: #### L 501.6710, L501.4020, L101.9900, L500.4050, L503.6005, L100.0100 ####[facility] [address] [place], [address] BUN/CRE 20.3 RATIO High 10-20 [facility] Comment on above: Order Comment: 'TROP ' Serial specimen #1, #2 or #3: 1 Performed By: #### L 501.6710, L501.4020, L101.9900, L500.4050, L503.6005, L100.0100 ####[facility] [address] [place], [address] CA,Total 9.4 mg/dL Normal 8.5-10.1 [facility] Comment on above: Order Comment: 'TROP ' Serial specimen #1, #2 or #3: 1 Performed By: #### L 501.6710, L501.4020, L101.9900, L500.4050, L503.6005, L100.0100 ####[facility] [address] [place], [address] Chloride [Moles/Vol] 106 mmol/L Normal 98-107 [facility] Comment on above: Order Comment: 'TROP ' Serial specimen #1, #2 or #3: 1 Performed By: #### L 501.6710, L501.4020, L101.9900, L500.4050, L503.6005, L100.0100 ####[facility] [address] [place], [address] CO2 [Moles/Vol] 25.0 mmol/L Normal 21.0-32.0 [facility] Comment on above: Order Comment: 'TROP ' Serial specimen #1, #2 or #3: 1 Performed By: #### L 501.6710, L501.4020, L101.9900, L500.4050, L503.6005, L100.0100 ####[facility] [address] [place], [address] Creatinine [Mass/Vol] 1.28 mg/dL Normal 0.70-1.30 [facility] Comment on above: Order Comment: 'TROP ' Serial specimen #1, #2 or #3: 1 Result Comment: The validity of the calculated GFR GFRAA in patients over 70 years has not been determined. Clinical correlation is essential. Performed By: #### L 501.6710, L501.4020, L101.9900, L500.4050, L503.6005, L100.0100 ####[facility] [address] [place], [address] ECRCL 61.35 ml/min Normal [facility] Comment on above: Order Comment: 'TROP ' Serial specimen #1, #2 or #3: 1 Performed By: #### L 501.6710, L501.4020, L101.9900, L500.4050, L503.6005, L100.0100 ####[facility] [address] [place], [address] EST GFR - AA 70 mL/min Normal >60 [facility] Comment on above: Order Comment: 'TROP ' Serial specimen #1, #2 or #3: 1 Result Comment: Afri can Cuban GFR Calc Performed By: #### L 501.6710, L501.4020, L101.9900, L500.4050, L503.6005, L100.0100 ####[facility] [address] [place], [address] GAP 7 Normal 5-15 [facility] Comment on above: Order Comment: 'TROP ' Serial specimen #1, #2 or #3: 1 Performed By: #### L 501.6710, L501.4020, L101.9900, L500.4050, L503.6005, L100.0100 ####[facility] [address] [place], [address] GFR/1.73 sq M.predicted among non-blacks MDRD (S/P/Bld) [Vol rate/Area] 58 mL/min/{1.73_m2} Low >60 [facility] Comment on above: Order Comment: 'TROP ' Serial specimen #1, #2 or #3: 1 Result Comment: Non- GFR Calc Performed By: #### L 501.6710, L501.4020, L101.9900, L500.4050, L503.6005, L100.0100 ####[facility] [address] [place], [address] Globulin (S) [Mass/Vol] 3.3 g/dL Normal 2.2-4.2 [facility] Comment on above: Order Comment: 'TROP ' Serial specimen #1, #2 or #3: 1 Performed By: #### L 501.6710, L501.4020, L101.9900, L500.4050, L503.6005, L100.0100 ####[facility] [address] [place], [address] Glucose [Mass/Vol] 135 mg/dL High 74-106 [facility] Comment on above: Order Comment: 'TROP ' Serial specimen #1, #2 or #3: 1 Result Comment: Fast ing Glucose result greater than or equal to 126 mg/dL suggests DIABETES MELLITUS per A.D.A. criteria. Performed By: #### L 501.6710, L501.4020, L101.9900, L500.4050, L503.6005, L100.0100 ####[facility] [address] [place], [address] Potassium [Moles/Vol] 4.2 mmol/L Normal 3.5-5.1 [facility] Comment on above: Order Comment: 'TROP ' Serial specimen #1, #2 or #3: 1 Performed By: #### L 501.6710, L501.4020, L101.9900, L500.4050, L503.6005, L100.0100 ####[facility] [address] [place], [address] Sodium [Moles/Vol] 138 mmol/L Normal 136-145 [facility] Comment on above: Order Comment: 'TROP ' Serial specimen #1, #2 or #3: 1 Performed By: #### L 501.6710, L501.4020, L101.9900, L500.4050, L503.6005, L100.0100 ####[facility] [address] [place], [address] T PROT 6.7 g/dL Normal 6.4-8.2 [facility] Comment on above: Order Comment: 'TROP ' Serial specimen #1, #2 or #3: 1 Performed By: #### L 501.6710, L501.4020, L101.9900, L500.4050, L503.6005, L100.0100 ####[facility] [address] [place], [address] Urea nitrogen [Mass/Vol] 26 mg/dL High 7-18 [facility] Comment on above: Order Comment: 'TROP ' Serial specimen #1, #2 or #3: 1 Performed By: #### L 501.6710, L501.4020, L101.9900, L500.4050, L503.6005, L100.0100 ####[facility] [address] [place], [address] Emergency Department Summary on 11-06-2024 Emergency Department Summary [facility] Medical Records Department [address] [place] [address] Emergency Department Summary 11/06/24 MR#: [id number] Acct: [id number] Name: BHAVNA ROCA Rep #: [id number] : 1945 79 From: Delmar Wild MD PCP: Dr. Alfredo Vasquez MD Status:REG ER Location: ED HPI History of Present Illness Chief Complaint: Shortness of Breath Detail of Chief Complaint: Dyspnea and dyspnea on exertion Informant: patient, spouse/S.O. and family Onset/Context/Timing Onset: Days (Past several days) Context: sudden Timing: Continuous and Waxes and wanes Quality: Positive for Dyspnea on exertion and Orthopnea; Negative for PND or Wheezing Current Severity: Mild Maximum Severity: Moderate Worsened by: Exertion and Lying flat Relieved by: Nothing Associated Symptoms cough; Negative for rhinorrhea, post nasal drip, ear pain, fever, sore throat, subjective, chills, sweats, clear sputum, white sputum, yellow sputum or green sputum Chest Pain: Positive for None Narrative Narrative: Patient is a 79-year-old male. He was diagnosed with pericarditis this past July. He also had myocarditis. He was treated with indomethacin and colchicine. He has developed shortness of breath over the past couple days and has symptoms similar to when he was diagnosed with pericarditis/myocardi tis. Patient denies chest discomfort. Patient denies fever, chills night sweats. Patient denies pain in his left trapezius area. Patient does report shortness of breath with activity. There is been slight swelling of his lower legs. He denies any recent upper respiratory infection like symptoms. He denies GI symptoms which include nausea, vomiting or diarrhea. Nuys abdominal pain. He denies dysuria, frequency, urgency or hematuria. He has no history of PE. PE Risk Factors: Negative for Cancer, OCP + Smoking + > 35, Prior DVT or PE, Recent immobilization, Recent surgery or Recent travel Prior similar symptoms: Yes (July and diagnosed with pericarditis and pericardial effusion without ) Recent Illness/Hospitalizati on: No PFSH PFSH Medical History Coronary artery disease Pericardial effusion without cardiac tamponade Pericarditis Hypercholesterolemia Hypertension Elevated troponin Non-ST elevation NC (NSTEMI) Myocarditis Pericarditis Acute pericardial effusion Chest pain CKD (chronic kidney disease), stage II Obesity History of nephrolithiasis Anxiety and depression Home Medications ???Medication ???Instructions ???Recorded ???Last Taken ???Type aspirin 81 mg chewable tablet 81 mg PO DAILY@0800 blood thinner 11/29/16 07/24/17 History lisinopril 20 mg tablet 20 mg PO DAILY HTN 12/06/16 Unknown History simvastatin 40 mg tablet 40 mg PO QHS HLD 12/06/16 Unknown History magnesium oxide 250 mg PO DAILY supplement 08/03/24 Unknown History multivitamin (Daily Multi-Vitamin 1 tab PO DAILY supplement 08/03/24 Unknown History tablet) sertraline 100 mg tablet 200 mg PO DAILY . 08/03/24 Unknown History amlodipine 5 mg tablet 5 mg PO DAILY #90 tabs 08/13/24 Unknown Rx coQ10 (ubiquinol) 100 mg capsule 200 mg PO QDAY 08/13/24 Unknown History (Qunol Justin CoQ10) colchicine 0.6 mg tablet 0.6 mg PO QDAY #90 tabs 08/13/24 Unknown Rx potassium chloride 10 mEq 10 meq PO DAILY #90 tabs 10/10/24 Unknown Rx tablet,extended release furosemide 20 mg tablet 20 mg PO DAILY #90 tabs 11/04/24 Unknown Rx Allergy/AdvReac Type Severity Reaction Status Date / Time No Known Allergies Allergy Verified 11/06/24 18:20 Family History Mother Heart disease Hypertension Father Prostate cancer Surgical History S/P cholecystectomy History of cochlear implant S/P ureteral stent placement Social History household members: spouse Smoking Status: Never smoker alcohol intake: never substance use type: does not use ROS ROS ED Constitutional Constitutional ED: Denies chills, fever(s), sweats or weight loss Eyes Eyes: Denies blurry vision or change in vision ENT ENT ED: Denies ear pain, rhinorrhea or sore throat Cardiovascular Cardiovascular: Reports orthopnea; Denies chest pain, palpitations, paroxysmal nocturnal dyspnea or racing heartbeat Respiratory/Chest Respiratory/Chest: Reports dyspnea, dyspnea on exertion and orthopnea; Denies cough, paroxysmal nocturnal dyspnea or sputum Gastrointestinal Gastrointestinal: Denies abdominal pain, constipation, diarrhea, melena, nausea or vomiting Genitourinary Genitourinary ED: Denies dysuria or hematuria Musculoskeletal Musculoskeletal: Denies arthralgias, back pain or myalgias Neurologic Neurologic: Denies head (more content not included)... Normal [facility] Eosinophil percentageOrdered By: Delmar Wild on 11-06-2024 Eosinophils/100 WBC (Bld) 1.3 % 0-5 [facility] Erythrocyte Sed Rateon 11-06 SED RATE 7 mm/hr Normal 0-20 [facility] Comment on above: Performed By: #### L 501.6710, L501.4020, L101.9900, L500.4050, L503.6005, L100.0100 ####[facility] [address] [place], [address] Erythrocyte distribution wid th ratioOrdered By: Delmar Wild on 11-06-2024 Erythrocyte distribution width (RBC) [Ratio] 14.5 % 11.6-14.6 [facility] Erythrocyte distribution wid th standard deviationOrdered By: Delmar Wild on 11-06-2024 Erythrocyte distribution width (RBC) [Entitic vol] 47.2 fL High 35.1-43.9 [facility] Erythrocyte sedimentation ra teOrdered By: Delmar Wild on 11-06-2024 ESR (Bld) [Velocity] 7 mm/h 0-20 [facility] Estimated glomerular filtrat ion rate (GFR) AmericanOrdered By: Delmar Wild on 11-06-2024 Estimated GFR (MDRD) Amer 70 mL/min >60 [facility] Comment on above: GFR Calc Estimation of creatinine swathi aranceOrdered By: Delmar Wild on 11-06-2024 Estimated Creatinine Clearance Calc 61.35 ml/min [facility] Glomerular filtration rate ( GFR) estimationOrdered By: Delmar Wild on 11-06-2024 Estimated GFR (MDRD) Non-Af Amer 58 mL/min Low >60 [facility] Comment on above: Non- GFR Calc Glucose measurementOrdered B y: Delmar Wild on 11-06-2024 Glucose [Mass/Vol] 135 mg/dL High 74-106 [facility] Comment on above: Fasting Glucose resu lt greater than or equal to 126 mg/dL suggests DIABETES MELLITUS per A.D.A. criteria. Hematocrit Auto (Bld) [Volum e fraction]Ordered By: Delmarromeo Wild on 11-06-2024 Hematocrit (Bld) [Volume fraction] 47.1 % 40-54 [facility] Hemoglobin measurementOrdere d By: Delmar Wild on 11-06-2024 Hemoglobin (Bld) [Mass/Vol] 15.7 g/dL 13.0-16.5 [facility] Immature granulocytes/100 WB C Auto (Bld)Ordered By: [facility] Immature granulocytes/100 WBC (Bld) 0.400 % 0.0-0.9 [facility] Comment on above: IG% - Immature Granu locytes (promyelocytes, myelocytes and metamyelocytes) > 1% indicates that a LEFT SHIFT is Present. Influenza virus A and B and SARS-CoV-2 (COVID-19) and Respiratory syncytial virus RNAOrdered By: Delmar Wild on 11-06-2024 SARS-CoV-2 (COVID-19) RNA RAINA+probe Ql (Unsp spec) [facility] L501.4020on 11-06-2024 TROPONIN-I HS 6 pg/mL Normal 3.0-78.0 [facility] Comment on above: Order Comment: 'TROP ' Serial specimen #1, #2 or #3: 1 Result Comment: Plea se Note: New Test Units and Gender Specific Reference Ranges. For more information see Policy Stat Procedure [place] High Sensitivity Troponin (TNIH) and attachments. Performed By: #### L 501.6710, L501.4020, L101.9900, L500.4050, L503.6005, L100.0100 ####[facility] [address] [place], [address] Laboratory - Chemistry and C hemistry - challengeOrdered By: Delmarromeo Wild on 11-06-2024 AST [Catalytic activity/Vol] 22 U/L 15-37 [facility] [facility] L[facility] Acidon 11-06-2024 Lactate [Moles/Vol] 1.9 mmol/L Normal 0.4-1.9 [facility] Comment on above: Order Comment: Y Performed By: #### L 501.6710, L501.4020, L101.9900, L500.4050, L503.6005, L100.0100 ####[facility] [address] [place], [address] Lactic acid measurementOrder ed By: Delmar Wild on 11-06-2024 Lactate [Moles/Vol] 1.9 mmol/L 0.4-2.0 [facility] Lymphocytes Auto (Unsp spec) [#/Vol]Ordered By: Delmar Wild on 11-06-2024 Lymphocytes (Bld) [#/Vol] 1.25 10*3/uL 0.83-4.51 [facility] Lymphocytes/100 WBC Auto (Un sp spec)Ordered By: Delmar Wild on 11-06-2024 Lymphocytes/100 WBC (Bld) 12.0 % Low 19-41 [facility] M100.678on 11-06-2024 M100.678 Pending SARS-CoV-2 (COVID 19) Negative INFLUENZA A Negative INFLUENZA B Negative RSV PCR Negative Normal [facility] Comment on above: Performed By: #### L 501.05017, L501.9520, L506.0400 #### [facility] [address] [place], [place], [address] MCV (mean corpuscular volume ) determinationOrdered By: Delmar Wild on 11-06-2024 MCV (RBC) [Entitic vol] 90.1 fL 80-94 [facility] Mean corpuscular hemoglobin (MCH) determinationOrdered By: Delmar Wild on 11-06-2024 MCH (RBC) [Entitic mass] 30.0 pg 27.0-32.0 [facility] Mean corpuscular hemoglobin concentration (MCHC) determinationOrdered By: Delmar Wild on 11-06-2024 MCHC (RBC) [Mass/Vol] 33.3 g/dL 32-36 [facility] Mean platelet volume determi nationOrdered By: Delmar Wild on 11-06-2024 Platelet mean volume (Bld) [Entitic vol] 10.3 fL 6.2-12.0 [facility] Monocyte percentageOrdered B y: Delmar Wild on 11-06-2024 Monocytes/100 WBC (Bld) 10.0 % 0-10 [facility] Neutrophil percentageOrdered By: Delmar Wild on 11-06-2024 Neutrophils/100 WBC (Bld) 76.0 % High 47-70 [facility] Nucleated red blood cell per centageOrdered By: Delmar Wild on 11-06-2024 Nucleated RBC/100 WBC (Bld) [Ratio] 0 % 0-5 [facility] Platelet countOrdered By: Ug o Wild on 11-06-2024 Platelets (Bld) [#/Vol] 246 10*3/uL 150-450 [facility] Potassium measurementOrdered By: Delmar Wild on 11-06-2024 Potassium [Moles/Vol] 4.2 mmol/L 3.5-5.1 [facility] RBC Auto (Bld) [#/Vol]Ordere d By: Delmar Wild on 11-06-2024 RBC (Bld) [#/Vol] 5.23 10*6/uL 4.6-6.2 [facility] Serum anion gap measurementO rdered By: Delmar Wild on 11-06-2024 Anion gap [Moles/Vol] 7 mmol/L 5-15 [facility] Serum globulin measurementOr dered By: Delmar Wild on 11-06-2024 Globulin (S) [Mass/Vol] 3.3 g/dL 2.2-4.2 [facility] Serum or plasma alanine allen otransferase (ALT) measurementOrdered By: Delmar Wild on 11-06-2024 ALT [Catalytic activity/Vol] 32 U/L 16-61 [facility] Serum or plasma albumin dex urement (mass/volume)Ordered By: Delmar Wild on 11-06-2024 Albumin [Mass/Vol] 3.4 g/dL 3.2-5.0 [facility] Serum or plasma alkaline sarahy sphatase measurementOrdered By: Delmar Wild on 12-18-2024 ALP [Catalytic activity/Vol] 96 U/L 45-117 [facility] Serum or plasma calcium dex urement (mass/volume)Ordered By: Delmar Wild on 11-06-2024 Calcium [Mass/Vol] 9.4 mg/dL 8.5-10.1 [facility] Serum or plasma creatinine m easurement (mass/volume)Ordered By: Delmar Wild on 11-06-2024 Creatinine [Mass/Vol] 1.28 mg/dL 0.70-1.30 [facility] Comment on above: The validity of the calculated GFR & GFRAA in patients over 70 years has not been determined. Clinical correlation is essential. Serum or plasma urea nitroge n measurement (mass/volume)Ordered By: Delmar Wild on 11-06-2024 Urea nitrogen [Mass/Vol] 26 mg/dL High - [facility] Sodium levelOrdered By: Delmar Wild on 11-06-2024 Sodium [Moles/Vol] 138 mmol/L 136-145 [facility] Total proteinOrdered By: Delmar Wild on 11-06-2024 Protein [Mass/Vol] 6.7 g/dL 6.4-8.2 [facility] Troponin IOrdered By: Delmar barrera on 11-06-2024 Troponin I High Sensitivity 6 pg/mL 3.0-78.0 [facility] Comment on above: Please Note: New Hamida t Units and Gender Specific Reference Ranges. For more information see Policy Stat Procedure [place] High Sensitivity Troponin (TNIH) and attachments. White blood cell (WBC) count Ordered By: Delmar Wild on 11-06-2024 WBC (Bld) [#/Vol] 10.4 10*3/uL 4.4-11.0 [facility] BNP,B-Type NATRIURETIC PEPTI Praveen 11-04-2024 Natriuretic peptide B (Bld) [Mass/Vol] 38.6 pg/mL Normal 0-100 [facility] Comment on above: Performed By: #### L 100.0100, L503.6620, L500.2500, L101.9900 ####[facility] [address] [place], [address] Absolute neutrophil countOrd ered By: Almaz Valladares on 11-01-2024 Neutrophils (Bld) [#/Vol] 3.9 10*3/uL 2.0-7.7 [facility] BNP (brain natriuretic pepti de measurement)Ordered By: Almaz Valladares on 11-01-2024 Natriuretic peptide B (Bld) [Mass/Vol] 38.6 pg/mL 0-100 [facility] Basic Metabolic Profile (BMP )on 11-01-2024 BUN/CRE 19.8 RATIO Normal 10-20 [facility] Comment on above: Performed By: #### L 100.0100, L503.6620, L500.2500, L101.9900 #### [facility] [address] [place], [address] CA,Total 9.7 mg/dL Normal 8.5-10.1 [facility] Comment on above: Performed By: #### L 100.0100, L503.6620, L500.2500, L101.9900 #### [facility] [address] [place], [address] Chloride [Moles/Vol] 107 mmol/L Normal 98-107 [facility] Comment on above: Performed By: #### L 100.0100, L503.6620, L500.2500, L101.9900 #### [facility] [address] [place], [address] CO2 [Moles/Vol] 29.0 mmol/L Normal 21.0-32.0 [facility] Comment on above: Performed By: #### L 100.0100, L503.6620, L500.2500, L101.9900 #### [facility] [address] [place], [address] Creatinine [Mass/Vol] 1.06 mg/dL Normal 0.70-1.30 [facility] Comment on above: Result Comment: The validity of the calculated GFR GFRAA in patients over 70 years has not been determined. Clinical correlation is essential. Performed By: #### L 100.0100, L503.6620, L500.2500, L101.9900 #### [facility] [address] [place], [address] EST GFR - AA 87 mL/min Normal >60 [facility] Comment on above: Result Comment: Afri can Cuban GFR Calc Performed By: #### L 100.0100, L503.6620, L500.2500, L101.9900 #### [facility] [address] [place], [address] GAP 2 Low 5-15 [facility] Comment on above: Performed By: #### L 100.0100, L503.6620, L500.2500, L101.9900 #### [facility] [address] [place], [address] GFR/1.73 sq M.predicted among non-blacks MDRD (S/P/Bld) [Vol rate/Area] 72 mL/min/{1.73_m2} Normal >60 [facility] Comment on above: Result Comment: Non- GFR Calc Performed By: #### L 100.0100, L503.6620, L500.2500, L101.9900 #### [facility] [address] [place], [address] Glucose [Mass/Vol] 101 mg/dL Normal 74-106 [facility] Comment on above: Result Comment: Fast ing Glucose result from 100 to 125 mg/dL suggests IMPAIRED HOMEOSTASIS per A.D.A. criteria. Performed By: #### L 100.0100, L503.6620, L500.2500, L101.9900 #### [facility] [address] [place], [address] Potassium [Moles/Vol] 4.6 mmol/L Normal 3.5-5.1 [facility] Comment on above: Performed By: #### L 100.0100, L503.6620, L500.2500, L101.9900 #### [facility] [address] [place], [address] Sodium [Moles/Vol] 138 mmol/L Normal 136-145 [facility] Comment on above: Performed By: #### L 100.0100, L503.6620, L500.2500, L101.9900 #### [facility] [address] [place], [address] Urea nitrogen [Mass/Vol] 21 mg/dL High 06-06 [facility] Comment on above: Performed By: #### L 100.0100, L503.6620, L500.2500, L101.9900 #### [facility] [address] [place], [address] Basophil percentageOrdered B y: Almaz Valladares on 11-01-2024 Basophils/100 WBC (Bld) 0.7 % 0-1 [facility] Blood urea nitrogen (BUN)/cr eatinine ratioOrdered By: Almaz Valladares on 11-01-2024 Urea nitrogen/Creatinine [Mass ratio] 19.8 mg/mg 09-08 [facility] CBC W/Diff, Automatedon 10-20 Absolute Lymph 1.07 X10 3/uL Normal 0.83-4.51 [facility] Comment on above: Performed By: #### L 100.0100, L503.6620, L500.2500, L101.9900 #### [facility] [address] [place], [address] Absolute Neut 3.9 X10 3/uL Normal 2.0-7.7 [facility] Comment on above: Performed By: #### L 100.0100, L503.6620, L500.2500, L101.9900 #### [facility] [address] [place], [address] Basophils/100 WBC (Bld) 0.7 % Normal 0-1 [facility] Comment on above: Performed By: #### L 100.0100, L503.6620, L500.2500, L101.9900 #### [facility] [address] [place], [address] Eosinophils/100 WBC (Bld) 4.5 % Normal 0-5 [facility] Comment on above: Performed By: #### L 100.0100, L503.6620, L500.2500, L101.9900 #### [facility] [address] [place], [address] Erythrocyte distribution width (RBC) [Ratio] 14.4 % Normal 11.6-14.6 [facility] Comment on above: Performed By: #### L 100.0100, L503.6620, L500.2500, L101.9900 #### [facility] [address] [place], [address] Hematocrit (Bld) [Volume fraction] 48.0 % Normal 40-54 [facility] Comment on above: Performed By: #### L 100.0100, L503.6620, L500.2500, L101.9900 #### [facility] [address] [place], [address] Hemoglobin (Bld) [Mass/Vol] 15.8 g/dL Normal 13.0-16.5 [facility] Comment on above: Performed By: #### L 100.0100, L503.6620, L500.2500, L101.9900 #### [facility] [address] [place], [address] IG% 0.500 Normal 0.0-0.9 [facility] Comment on above: Result Comment: IG% - Immature Granulocytes (promyelocytes, myelocytes and metamyelocytes) > 1% indicates that a LEFT SHIFT is Present. Performed By: #### L 100.0100, L503.6620, L500.2500, L101.9900 #### [facility] [address] [place], [address] Lymphocytes/100 WBC (Bld) 17.7 % Low 19-41 [facility] Comment on above: Performed By: #### L 100.0100, L503.6620, L500.2500, L101.9900 #### [facility] [address] [place], [address] MCH (RBC) [Entitic mass] 29.8 pg Normal 27.0-32.0 [facility] Comment on above: Performed By: #### L 100.0100, L503.6620, L500.2500, L101.9900 #### [facility] [address] [place], [address] MCHC (RBC) [Mass/Vol] 32.9 g/dL Normal 32-36 [facility] Comment on above: Performed By: #### L 100.0100, L503.6620, L500.2500, L101.9900 #### [facility] [address] [place], [address] MCV (RBC) [Entitic vol] 90.4 fL Normal 80-94 [facility] Comment on above: Performed By: #### L 100.0100, L503.6620, L500.2500, L101.9900 #### [facility] [address] [place], [address] Monocytes/100 WBC (Bld) 13.2 % High 0-10 [facility] Comment on above: Performed By: #### L 100.0100, L503.6620, L500.2500, L101.9900 #### [facility] [address] [place], [address] Neutrophils/100 WBC (Bld) 63.4 % Normal 47-70 [facility] Comment on above: Performed By: #### L 100.0100, L503.6620, L500.2500, L101.9900 #### [facility] [address] [place], [address] Nucleated RBC (Bld) [#/Vol] 0 10*3/uL Normal 0-5 [facility] Comment on above: Performed By: #### L 100.0100, L503.6620, L500.2500, L101.9900 #### [facility] [address] [place], [address] Platelet mean volume (Bld) [Entitic vol] 10.0 fL Normal 6.2-12.0 [facility] Comment on above: Performed By: #### L 100.0100, L503.6620, L500.2500, L101.9900 #### [facility] [address] [place], [address] Platelets (Bld) [#/Vol] 237 10*3/uL Normal 150-450 [facility] Comment on above: Performed By: #### L 100.0100, L503.6620, L500.2500, L101.9900 #### [facility] [address] [place], [address] RBC (Bld) [#/Vol] 5.31 10*6/uL Normal 4.6-6.2 [facility] Comment on above: Performed By: #### L 100.0100, L503.6620, L500.2500, L101.9900 #### [facility] [address] [place], [address] RDW SD 47.3 fl High 35.1-43.9 [facility] Comment on above: Performed By: #### L 100.0100, L503.6620, L500.2500, L101.9900 #### [facility] [address] [place], [address] WBC (Bld) [#/Vol] 6.1 10*3/uL Normal 4.4-11.0 [facility] Comment on above: Performed By: #### L 100.0100, L503.6620, L500.2500, L101.9900 #### [facility] [address] [place], [address] Carbon dioxide measurementOr dered By: Almaz Valladares on 11-01-2024 CO2 [Moles/Vol] 29.0 mmol/L 21.0-32.0 [facility] Chest PA and Lateralon 11-01 Chest PA and Lateral [facility] Imaging Services [address] [place], [place] [address] Chest PA and Lateral MR#: [id number] Acct: [id number] Name: BHAVNA ROCA Rep #: [id number] : 1945 M 79 From: Ricky Muñoz MD PCP: Dr. Alfredo Vasquez MD Status: REG CLI Study: Chest PA and Lateral Date of Exam: 11/01/24 Exam# [id number] Ordering Dr: Almaz Valladares [place] [id number] EXAM: XR CHEST, 2 VIEWS CLINICAL INDICATION: Increased SOB, recent hx pericardial effusion TECHNIQUE: Frontal and lateral views of the chest. COMPARISON: Single view chest 08/03/2024 FINDINGS: LUNGS AND PLEURAL SPACES: Stable eventration of the left diaphragm with associated left basilar atelectasis. No pneumothorax. No effusion. HEART: Mild enlargement of the cardiac silhouette. MEDIASTINUM: Central airways and mediastinal contour are unremarkable. BONES/JOINTS: Unremarkable. No acute fracture. SOFT TISSUES: Unremarkable. RAD/Chest PA and Lateral IMPRESSION: 1. Stable eventration of the left diaphragm with associated left basilar atelectasis. 2. Mild enlargement of the cardiac silhouette, stable. Electronically Signed: Ricky Muñoz MD at 12:07 EST , CC: Dr. Alfredo Vasquez MD; ASH Espino Hydraulic Technician: Signed Normal [facility] Chloride measurementOrdered By: Almaz Valladares on 11-01-2024 Chloride [Moles/Vol] 107 mmol/L 98-107 [facility] Eosinophil percentageOrdered By: Almaz Valladares on 11-01-2024 Eosinophils/100 WBC (Bld) 4.5 % 0-5 [facility] Erythrocyte Sed Rateon 11-01 SED RATE 3 mm/hr Normal 0-20 [facility] Comment on above: Performed By: #### L 100.0100, L503.6620, L500.2500, L101.9900 #### [facility] [address] [place], [address] Erythrocyte distribution wid th ratioOrdered By: Almaz Valladares on 11-01-2024 Erythrocyte distribution width (RBC) [Ratio] 14.4 % 11.6-14.6 [facility] Erythrocyte distribution wid th standard deviationOrdered By: Almaz Valladares on 11-01-2024 Erythrocyte distribution width (RBC) [Entitic vol] 47.3 fL High 35.1-43.9 [facility] Erythrocyte sedimentation ra teOrdered By: Almaz Valladares on 11-01-2024 ESR (Bld) [Velocity] 3 mm/h 0-20 [facility] Estimated glomerular filtrat ion rate (GFR) AmericanOrdered By: Almaz Valladares on 11-01-2024 Estimated GFR (MDRD) Amer 87 mL/min >60 [facility] Comment on above: GFR Calc Glomerular filtration rate ( GFR) estimationOrdered By: Almaz Valladares on 11-01-2024 Estimated GFR (MDRD) Non-Af Amer 72 mL/min >60 [facility] Comment on above: Non- GFR Calc Glucose measurementOrdered B y: Almaz Valladares on 11-01-2024 Glucose [Mass/Vol] 101 mg/dL 74-106 [facility] Comment on above: Fasting Glucose resu lt from 100 to 125 mg/dL suggests IMPAIRED HOMEOSTASIS per A.D.A. criteria. Hematocrit Auto (Bld) [Volum e fraction]Ordered By: Almaz Valladares on 11-01-2024 Hematocrit (Bld) [Volume fraction] 48.0 % 40-54 [facility] Hemoglobin measurementOrdere d By: Almaz Valladares on 11-01-2024 Hemoglobin (Bld) [Mass/Vol] 15.8 g/dL 13.0-16.5 [facility] Immature granulocytes/100 WB C Auto (Bld)Ordered By: Almaz Valladares on 11-01-2024 Immature granulocytes/100 WBC (Bld) 0.500 % 0.0-0.9 [facility] Comment on above: IG% - Immature Granu locytes (promyelocytes, myelocytes and metamyelocytes) > 1% indicates that a LEFT SHIFT is Present. Lymphocytes Auto (Unsp spec) [#/Vol]Ordered By: Almaz Valladares on 11-01-2024 Lymphocytes (Bld) [#/Vol] 1.07 10*3/uL 0.83-4.51 [facility] Lymphocytes/100 WBC Auto (Un sp spec)Ordered By: Almaz Valladares on 11-01-2024 Lymphocytes/100 WBC (Bld) 17.7 % Low 19-41 [facility] MCV (mean corpuscular volume ) determinationOrdered By: Almaz Valladares on 11-01-2024 MCV (RBC) [Entitic vol] 90.4 fL 80-94 [facility] Mean corpuscular hemoglobin (MCH) determinationOrdered By: Almaz Valladares on 11-01-2024 MCH (RBC) [Entitic mass] 29.8 pg 27.0-32.0 [facility] Mean corpuscular hemoglobin concentration (MCHC) determinationOrdered By: Almaz Valladares on 11-01-2024 MCHC (RBC) [Mass/Vol] 32.9 g/dL 32-36 [facility] Mean platelet volume determi nationOrdered By: Almaz Valladares on 11-01-2024 Platelet mean volume (Bld) [Entitic vol] 10.0 fL 6.2-12.0 [facility] Monocyte percentageOrdered B y: Almaz Valladares on 11-01-2024 Monocytes/100 WBC (Bld) 13.2 % High 0-10 [facility] Neutrophil percentageOrdered By: Almaz Valladares on 11-01-2024 Neutrophils/100 WBC (Bld) 63.4 % 47-70 [facility] Nucleated red blood cell per centageOrdered By: Almaz Valladares on 11-01-2024 Nucleated RBC/100 WBC (Bld) [Ratio] 0 % 0-5 [facility] Platelet countOrdered By: Richa Valladares on 11-01-2024 Platelets (Bld) [#/Vol] 237 10*3/uL 150-450 [facility] Potassium measurementOrdered By: Almaz Valladares on 11-01-2024 Potassium [Moles/Vol] 4.6 mmol/L 3.5-5.1 [facility] RBC Auto (Bld) [#/Vol]Ordere d By: Almaz Valladares on 11-01-2024 RBC (Bld) [#/Vol] 5.31 10*6/uL 4.6-6.2 [facility] Serum anion gap measurementO rdered By: Almaz Valladares on 11-01-2024 Anion gap [Moles/Vol] 2 mmol/L Low 5-15 [facility] Serum or plasma calcium dex urement (mass/volume)Ordered By: Almaz Valladares on 11-01-2024 Calcium [Mass/Vol] 9.7 mg/dL 8.5-10.1 [facility] Serum or plasma creatinine m easurement (mass/volume)Ordered By: Almaz Valladares on 11-01-2024 Creatinine [Mass/Vol] 1.06 mg/dL 0.70-1.30 [facility] Comment on above: The validity of the calculated GFR & GFRAA in patients over 70 years has not been determined. Clinical correlation is essential. Serum or plasma urea nitroge n measurement (mass/volume)Ordered By: Almaz Valladares on 11-01-2024 Urea nitrogen [Mass/Vol] 21 mg/dL High 7-18 [facility] Sodium levelOrdered By: Pérez Valladares on 11-01-2024 Sodium [Moles/Vol] 138 mmol/L 136-145 [facility] White blood cell (WBC) count Ordered By: Almaz Valladares on 11-01-2024 WBC (Bld) [#/Vol] 6.1 10*3/uL 4.4-11.0 [facility] Absolute neutrophil countOrd ered By: Jana Blake on 10-22-2024 Neutrophils (Bld) [#/Vol] 5.9 10*3/uL 2.0-7.7 [facility] Basophil percentageOrdered B y: Jana Blake on 10-22-2024 Basophils/100 WBC (Bld) 0.6 % 0-1 [facility] CBC W/Diff, Automatedon Absolute Lymph 1.02 X10 3/uL Normal 0.83-4.51 [facility] Comment on above: Performed By: #### L 100.0100 ####[facility] [address] [place], [address] Absolute Neut 5.9 X10 3/uL Normal 2.0-7.7 [facility] Comment on above: Performed By: #### L 100.0100 ####[facility] [address] [place], [address] Basophils/100 WBC (Bld) 0.6 % Normal 0-1 [facility] Comment on above: Performed By: #### L 100.0100 ####[facility] [address] [place], [address] Eosinophils/100 WBC (Bld) 2.8 % Normal 0-5 [facility] Comment on above: Performed By: #### L 100.0100 ####[facility] [address] [place], [address] Erythrocyte distribution width (RBC) [Ratio] 14.0 % Normal 11.6-14.6 [facility] Comment on above: Performed By: #### L 100.0100 ####[facility] [address] [place], [address] Hematocrit (Bld) [Volume fraction] 48.9 % Normal 40-54 [facility] Comment on above: Performed By: #### L 100.0100 ####[facility] [address] [place], [address] Hemoglobin (Bld) [Mass/Vol] 15.5 g/dL Normal 13.0-16.5 [facility] Comment on above: Performed By: #### L 100.0100 ####[facility] [address] [place], [address] IG% 0.500 Normal 0.0-0.9 [facility] Comment on above: Result Comment: IG% - Immature Granulocytes (promyelocytes, myelocytes and metamyelocytes) > 1% indicates that a LEFT SHIFT is Present. Performed By: #### L 100.0100 ####[facility] [address] [place], [address] Lymphocytes/100 WBC (Bld) 12.8 % Low 19-41 [facility] Comment on above: Performed By: #### L 100.0100 ####[facility] [address] [place], [address] MCH (RBC) [Entitic mass] 29.0 pg Normal 27.0-32.0 [facility] Comment on above: Performed By: #### L 100.0100 ####[facility] [address] [place], [address] MCHC (RBC) [Mass/Vol] 31.7 g/dL Low 32-36 [facility] Comment on above: Performed By: #### L 100.0100 ####[facility] [address] [place], [address] MCV (RBC) [Entitic vol] 91.4 fL Normal 80-94 [facility] Comment on above: Performed By: #### L 100.0100 ####[facility] [address] [place], [address] Monocytes/100 WBC (Bld) 9.4 % Normal 0-10 [facility] Comment on above: Performed By: #### L 100.0100 ####[facility] [address] [place], [address] Neutrophils/100 WBC (Bld) 73.9 % High 47-70 [facility] Comment on above: Performed By: #### L 100.0100 ####[facility] [address] [place], [address] Nucleated RBC (Bld) [#/Vol] 0 10*3/uL Normal 0-5 [facility] Comment on above: Performed By: #### L 100.0100 ####[facility] [address] [place], [address] Platelet mean volume (Bld) [Entitic vol] 10.0 fL Normal 6.2-12.0 [facility] Comment on above: Performed By: #### L 100.0100 ####[facility] [address] [place], [address] Platelets (Bld) [#/Vol] 253 10*3/uL Normal 150-450 [facility] Comment on above: Performed By: #### L 100.0100 ####[facility] [address] [place], [address] RBC (Bld) [#/Vol] 5.35 10*6/uL Normal 4.6-6.2 [facility] Comment on above: Performed By: #### L 100.0100 ####[facility] [address] [place], [address] RDW SD 47.3 fl High 35.1-43.9 [facility] Comment on above: Performed By: #### L 100.0100 ####[facility] [address] [place], [place], [address] WBC (Bld) [#/Vol] 8.0 10*3/uL Normal 4.4-11.0 [facility] Comment on above: Performed By: #### L 100.0100 ####[facility] [id number] [facility] [place], [address] Eosinophil percentageOrdered By: Jana Blake on 10-22-2024 Eosinophils/100 WBC (Bld) 2.8 % 0-5 [facility] Erythrocyte distribution wid th ratioOrdered By: Jana Blake on 10-22-2024 Erythrocyte distribution width (RBC) [Ratio] 14.0 % 11.6-14.6 [facility] Erythrocyte distribution wid th standard deviationOrdered By: Jana Blake on 10-22-2024 Erythrocyte distribution width (RBC) [Entitic vol] 47.3 fL High 35.1-43.9 [facility] Hematocrit Auto (Bld) [Volum e fraction]Ordered By: Jana Blake on 10-22-2024 Hematocrit (Bld) [Volume fraction] 48.9 % 40-54 [facility] Hemoglobin measurementOrdere d By: Jana Blake on 10-22-2024 Hemoglobin (Bld) [Mass/Vol] 15.5 g/dL 13.0-16.5 [facility] Immature granulocytes/100 WB C Auto (Bld)Ordered By: Jana Blake on 10-22-2024 Immature granulocytes/100 WBC (Bld) 0.500 % 0.0-0.9 [facility] Comment on above: IG% - Immature Granu locytes (promyelocytes, myelocytes and metamyelocytes) > 1% indicates that a LEFT SHIFT is Present. Lymphocytes Auto (Unsp spec) [#/Vol]Ordered By: Jana Blake on 10-22-2024 Lymphocytes (Bld) [#/Vol] 1.02 10*3/uL 0.83-4.51 [facility] Lymphocytes/100 WBC Auto (Un sp spec)Ordered By: Jana Blake on 10-22-2024 Lymphocytes/100 WBC (Bld) 12.8 % Low 19-41 [facility] MCV (mean corpuscular volume ) determinationOrdered By: Jana Blake on 10-22-2024 MCV (RBC) [Entitic vol] 91.4 fL 80-94 [facility] Mean corpuscular hemoglobin (MCH) determinationOrdered By: Jana Blake on 10-22-2024 MCH (RBC) [Entitic mass] 29.0 pg 27.0-32.0 [facility] Mean corpuscular hemoglobin concentration (MCHC) determinationOrdered By: Jana Blake on 10-22-2024 MCHC (RBC) [Mass/Vol] 31.7 g/dL Low 32-36 [facility] Mean platelet volume determi nationOrdered By: Jana Blake on 10-22-2024 Platelet mean volume (Bld) [Entitic vol] 10.0 fL 6.2-12.0 [facility] Monocyte percentageOrdered B y: Jana Blake on 10-22-2024 Monocytes/100 WBC (Bld) 9.4 % 0-10 [facility] Neutrophil percentageOrdered By: Jana Blake on 10-22-2024 Neutrophils/100 WBC (Bld) 73.9 % High 47-70 [facility] Nucleated red blood cell per centageOrdered By: Jana Blake on 10-22-2024 Nucleated RBC/100 WBC (Bld) [Ratio] 0 % 0-5 [facility] Platelet countOrdered By: Richa Blake on 10-22-2024 Platelets (Bld) [#/Vol] 253 10*3/uL 150-450 [facility] RBC Auto (Bld) [#/Vol]Ordere d By: Jana Blake on 10-22-2024 RBC (Bld) [#/Vol] 5.35 10*6/uL 4.6-6.2 [facility] White blood cell (WBC) count Ordered By: Jana Blake on 10-22-2024 WBC (Bld) [#/Vol] 8.0 10*3/uL 4.4-11.0 [facility] FUNDUS PHOTOGRAPHY-OU*on FUNDUS PHOTOGRAPHY-OU* Right Eye Clear. Disc findings include normal observations. Vessel findings include normal. Macula findings include RPE mottling. Laser, Nevus. Interval change is same. Recommendation for management is to observe. Left Eye Hazy. Disc findings include normal observations. Vessel findings include normal. Macula findings include drusen. Normal. Interval change is same. Recommendation for management is to observe. Normal [facility] Right Eye Clear. Disc findings include normal observations. Vessel findings include normal. Macula findings include RPE mottling. Laser, Nevus. Interval change is same. Recommendation for management is to observe. Left Eye Hazy. Disc findings include normal observations. Vessel findings include normal. Macula findings include drusen. Normal. Interval change is same. Recommendation for management is to observe. [facility] ([facility] OCT/HRT MACULA OU*on 024 OCT/HRT MACULA OU* Right Eye Quality was good. Findings include normal observations. Interval change is same. Recommendation for management is to observe. Left Eye Quality was good. Findings include normal observations. Interval change is same. Recommendation for management is to observe. Normal [facility] Right Eye Quality was good. Findings include normal observations. Interval change is same. Recommendation for management is to observe. Left Eye Quality was good. Findings include normal observations. Interval change is same. Recommendation for management is to observe. [facility] (n[facility]ative) [facility] CORNEAL TOPOGRAPHY OU*on Baseline, Good Quality, Minimal Astigmatism [facility] CORNEAL TOPOGRAPHY-OUon 05-0 CORNEAL TOPOGRAPHY-OU Baseline, Good Quality, Minimal Astigmatism Normal [facility] FUNDUS PHOTOGRAPHY-OUon 05-0 FUNDUS PHOTOGRAPHY-OU Right Eye Clear. Disc findings [...] Recommendation for management is to observe. Normal [facility] Right Eye Clear. Disc findings include normal [...] for management is to observe. RADIOLOGY [facility] IOL MASTER OUon 03-20-2024 IOL MASTER OU AKREOS 16.00 Diopter s (-0.38) Right Eye Normal [facility] AKREOS 16.00 Diopter s (-0.38) Right Eye RADIOLOGY [facility] OCT/HRT MACULA OUon 03-20-20 [facility] No Panel Informationon 03-14 Radiology Study observation (narrative) [facility] Basophil percentageOrdered B y: Alfredo Vasquez on 03-07-2024 Chloride [Moles/Vol] 108 mmol/L 98-107 [facility] Cholesterol [Mass/Vol] 198 mg/dL <200 [facility] Comment on above: <200 mg/dL Desirable 200-240 mg/dL Borderline >240 mg/dL High Risk Glucose [Mass/Vol] 97 mg/dL 74-106 [facility] Potassium [Moles/Vol] 4.3 mmol/L 3.5-5.1 [facility] Sodium [Moles/Vol] 139 mmol/L 136-145 [facility] Triglyceride [Mass/Vol] 209 mg/dL <199 [facility] Comment on above: The drugs N-Acetylcy steine and Metamizole may falsely depress this assay.Serum Triglycerides Reference Interval Normal <150 mg/dL Borderline high 150 - 199 mg/dL High 200 - 499 mg/dL Very High > or = 500 mg/dL Laboratory - Chemistry and C hemistry - challengeOrdered By: Alfredo Vasquez on 03-07-2024 Cholesterol in HDL [Mass/Vol] 48 mg/dL >40 [facility] Comment on above: The drugs N-Acetylcy steine and Metamizole may falsely depress this assay. Reference Range HDL <40 mg/dL Low HDL Cholesterol HDL >or= 60 mg/dL High HDL Cholesterol Cholesterol in LDL [Mass/Vol] 108 mg/dL 0-130 [facility] CO2 [Moles/Vol] 25.0 mmol/L 21.0-32.0 [facility] Urea nitrogen/Creatinine [Mass ratio] 28.8 mg/mg 10-20 [facility] No Panel InformationOrdered By: Alfredo Vasquez on 03-07-2024 Estimated GFR (MDRD) Amer 100 mL/min >60 [facility] Comment on above: GFR Calc Estimated GFR (MDRD) Non-Af Amer 83 mL/min >60 [facility] Comment on above: Non- GFR Calc Prostate Specific Antigen Screen 2.26 ng/mL 0.00-4.00 [facility] Comment on above: This test was perfor med using the TPSA assay method for the[employer] Sky chemistry system. Values obtained with differentassay methods cannot be used interchangably.When changing PSA assays in the course of monitoring apatient, additional sequential testing should be carriedout to confirm baseline values. VLDL Cholesterol 42 mg/dL 5-40 [facility] Serum or plasma calcium dex urement (mass/volume)Ordered By: Alfredo Vasquez on 03-07-2024 Calcium [Mass/Vol] 10.0 mg/dL 8.5-10.1 [facility] Serum or plasma creatinine m easurement (mass/volume)Ordered By: Alfredo Vasquez on 03-07-2024 Creatinine [Mass/Vol] 0.94 mg/dL 0.70-1.30 [facility] Comment on above: The validity of the calculated GFR & GFRAA in patients over 70 years has not been determined. Clinical correlation is essential. Serum or plasma urea nitroge n measurement (mass/volume)Ordered By: Alfredo Vasquez on 03-07-2024 Urea nitrogen [Mass/Vol] 27 mg/dL 06-06 [facility] Thin prep Papanicolaou smear with manual screeningOrdered By: Alfredo Vasquez on 03-07-2024 Thin prep Papanicolaou smear with manual screening 6 5-15 [facility] Basophil percentageOrdered B y: Daisy Philippe on 08-16-2023 Bilirubin [Mass/Vol] 0.60 mg/dL 0.20-1.00 [facility] Comment on above: For patients on eltr ombopag therapy, use of Dimension [place] TBIL is not recommended. Chloride [Moles/Vol] 106 mmol/L 98-107 [facility] Cholesterol [Mass/Vol] 160 mg/dL <200 [facility] Comment on above: <200 mg/dL Desirable 200-240 mg/dL Borderline >240 mg/dL High Risk Glucose [Mass/Vol] 95 mg/dL 74-106 [facility] Potassium [Moles/Vol] 4.4 mmol/L 3.5-5.1 [facility] Protein [Mass/Vol] 6.6 g/dL 6.4-8.2 [facility] Sodium [Moles/Vol] 137 mmol/L 136-145 [facility] Triglyceride [Mass/Vol] 195 mg/dL <199 [facility] Comment on above: The drugs N-Acetylcy steine and Metamizole may falsely depress this assay.Serum Triglycerides Reference Interval Normal <150 mg/dL Borderline high 150 - 199 mg/dL High 200 - 499 mg/dL Very High > or = 500 mg/dL Laboratory - Chemistry and C hemistry - challengeOrdered By: Daisy Philippe on 08-16-2023 ALP [Catalytic activity/Vol] 99 U/L 45-117 [facility] ALT [Catalytic activity/Vol] 35 U/L 16-61 [facility] CO2 [Moles/Vol] 28.0 mmol/L 21.0-32.0 [facility] Globulin (S) [Mass/Vol] 3.2 g/dL 2.2-4.2 [facility] Urea nitrogen/Creatinine [Mass ratio] 24.4 mg/mg 10-20 [facility] No Panel InformationOrdered By: Daisy Philippe on 08-16-2023 Estimated GFR (MDRD) Amer 100 mL/min >60 [facility] Comment on above: GFR Calc Estimated GFR (MDRD) Non-Af Amer 83 mL/min >60 [facility] Comment on above: Non- GFR Calc Serum or plasma albumin dex urement (mass/volume)Ordered By: Daisy Philippe on 08-16-2023 Albumin [Mass/Vol] 3.4 g/dL 3.2-5.0 [facility] Serum or plasma albumin/glob ulin mass ratioOrdered By: Daisy Philippe on 08-16-2023 Albumin/Globulin [Mass ratio] 1.1 {ratio} 0.9-2.4 [facility] Serum or plasma calcium dex urement (mass/volume)Ordered By: Daisy Philippe on 08-16-2023 Calcium [Mass/Vol] 9.2 mg/dL 8.5-10.1 [facility] Serum or plasma cholesterol in HDL measurement (mass/volume)Ordered By: Daisy Philippe on 08-16-2023 Cholesterol in HDL [Mass/Vol] 43 mg/dL >40 [facility] Comment on above: The drugs N-Acetylcy steine and Metamizole may falsely depress this assay. Reference Range HDL <40 mg/dL Low HDL Cholesterol HDL >or= 60 mg/dL High HDL Cholesterol Serum or plasma cholesterol in VLDL measurement (mass/volume)Ordered By: Daisy Philippe on 08-16-2023 Cholesterol in VLDL [Mass/Vol] 39 mg/dL 5-40 [facility] Serum or plasma creatinine m easurement (mass/volume)Ordered By: Daisy Philippe on 08-16-2023 Creatinine [Mass/Vol] 0.94 mg/dL 0.70-1.30 [facility] Comment on above: The validity of the calculated GFR & GFRAA in patients over 70 years has not been determined. Clinical correlation is essential. Serum or plasma low density lipoprotein (LDL) cholesterol measurement (mass/volume)Ordered By: Daisy Philippe on 08-16-2023 Cholesterol in LDL [Mass/Vol] 78 mg/dL 0-130 [facility] Serum or plasma urea nitroge n measurement (mass/volume)Ordered By: Daisy Philippe on 08-16-2023 Urea nitrogen [Mass/Vol] 23 mg/dL 7-18 [facility] Thin prep Papanicolaou smear with manual screeningOrdered By: Daisy Philippe on 08-16-2023 Thin prep Papanicolaou smear with manual screening 22 U/L 15-37 [facility] Thin prep Papanicolaou smear with manual screening 3 5-15 [facility] Established Visit (Otolaryng ology)on 07-27-2023 Established Visit (Otolaryngology) Diagnoses/Problems Dizziness (780.4) (R42) Orders Start: Sertraline HCl - 25 MG Oral Tablet; Take 1 tablet daily at night Chief Complaint follow up vestibular issues Adult Risk ScreeningAdult Risk Screening_UH: There are no spiritual/cultural practices/values/need s that are important to know Initial Fall [...] He has had a VNG from the [facility], which suggests significant right-sided vestibulopathy. A subsequent [...] RESPIRATION: Breathing comfortably, no stridor CV: No clubbing/cyanosis/mateo ma in hands EYES: EOM intact, sclera clear [...] middle ear NOSE: External nose midline, ORAL CAVITY/OROPHARYNX/LIP S: Normal mucous membranes, normal floor of mouth/tongue/OP, [...] amytryptilene. Then (more content not included)... 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 Rliey. He has had a VNG from the [facility], which suggests significant right-sided vestibulopathy. A subsequent [...] RESPIRATION: Breathing comfortably, no stridor CV: No clubbing/cyanosis/mateo ma in hands EYES: EOM intact, sclera clear [...] middle ear NOSE: External nose midline, ORAL CAVITY/OROPHARYNX/LIP S: Normal mucous membranes, normal floor of mouth/tongue/OP, [...] speech charles (more content not included)... Normal [facility] Tobacco Screening.on 023 Adult depression screening assessment No [facility] [address] [place] Work Phone: Tobacco use status CPHS b) No [facility]aryng[facility] [address] [place] Work Phone: Tobacco Screening. 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 Bithermal caloric testing yielded a significant (28%) weakness on the right side. Ocular motility testing to visually guided signals was normal. Positional and positioning testing ([place] and roll test) were determined to be [...] follow-up with Devon Dias MD. 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 CC: Devon Dias MD Chief Complaint [facility] VIDEONYSTAGMOGRAPHY (VNG) AND VIDEO HEAD IMPULSE TEST (VHIT) EXAMINATION Adult Risk ScreeningThere are no spiritual/cultural practices/values/need s that are important to know Initial Fall [...] neuropathy in the feet. Patient's preferred language: Mongolian Preferred language of the parent, legal guardian or surrogate decision-maker of this minor or incapacitated patient: Not Applicable No overt signs of domestic violence/neglect/abus e. No referral made to [employer]. Pain not interfering with optimal level of [...] well (more content not included)... Normal [facility] Blood Pressure Cuff Sizeon 0 03-17-2023 Adult depression screening assessment No [facility] [place] [address] [place] Work Phone: Tobacco use status CPHS b) No M [facility]aryng[facility] [address] [place] Work Phone: Blood Pressure Cuff Size Adult [facility] [address] [place] Work Phone: Initial Visit (Otolaryngolog y)on 03-17-2023 Initial Visit (Otolaryngology) Diagnoses/Problems Dizziness (780.4) (R42) Orders Audiology Referral Evaluation and Treatment Evaluate AND Treat-- vng Status: Hold For - Scheduling,Retrospect ana By Protocol Authorization Requested for: 17Mar2023 Chief Complaint New patient visit vestibular migraines from [facility] Adult Risk ScreeningAdult Risk Screening_: There are no spiritual/cultural practices/values/need s that are important to know Initial Fall [...] He has had a VNG from the [facility], which suggests significant right-sided vestibulopathy. A subsequent [...] RESPIRATION: Breathing comfortably, no stridor CV: No clubbing/cyanosis/mateo ma in hands EYES: EOM intact, sclera clear [...] middle ear (more content not included)... Normal [facility] Absolute lymphocyte counton 08-31-2022 Lymphocytes Auto (Unsp spec) [#/Vol] 0.96 10*3/uL 0.83-4.51 [facility] Work Phone: Basophil percentageon 2021 Basophil percentage 0 SEEN /hpf 0-5 [facility] Work Phone: Basophils/100 WBC (Bld) 0.9 % 0-1 [facility] Work Phone: Bilirubin [Mass/Vol] 0.60 mg/dL 0.20-1.00 [facility] Work Phone: Comment on above: For patients on eltr ombopag therapy, use of Dimension [place] TBIL is not recommended. Chloride [Moles/Vol] 106 mmol/L 98-107 [facility] Work Phone: Cholesterol [Mass/Vol] 147 mg/dL <200 [facility] Work Phone: Comment on above: <200 mg/dL Desirable 200-240 mg/dL Borderline >240 mg/dL High Risk Eosinophils/100 WBC (Bld) 4.3 % 0-5 [facility] Work Phone: Glucose [Mass/Vol] 98 mg/dL 74-106 [facility] Work Phone: Neutrophils (Bld) [#/Vol] 3.5 10*3/uL 2.0-7.7 [facility] Work Phone: Neutrophils/100 WBC (Bld) 65.3 % 47-70 [facility] Work Phone: Potassium [Moles/Vol] 4.2 mmol/L 3.5-5.1 [facility] Work Phone: Protein [Mass/Vol] 7.0 g/dL 6.4-8.2 [facility] Work Phone: Sodium [Moles/Vol] 139 mmol/L 136-145 [facility] Work Phone: Triglyceride [Mass/Vol] 151 mg/dL <199 [facility] Work Phone: Comment on above: The drugs N-Acetylcy steine and Metamizole may falsely depress this assay.Serum Triglycerides Reference Interval Normal <150 mg/dL Borderline high 150 - 199 mg/dL High 200 - 499 mg/dL Very High > or = 500 mg/dL WBC (Bld) [#/Vol] 5.4 10*3/uL 4.4-11.0 [facility] Work Phone: Bilirubin Test strip Ql (U)o n 08-31-2022 Bilirubin Ql (U) Negative Negative [facility] Work Phone: Blood erythrocytes count (nu mber/volume)on 08-31-2022 RBC (Bld) [#/Vol] 5.07 10*6/uL 4.6-6.2 [facility] Work Phone: Blood hemoglobin measurement (mass/volume)on 08-31-2022 Hemoglobin (Bld) [Mass/Vol] 16.2 g/dL 13.0-16.5 [facility] Work Phone: Blood lymphocytes/100 leukoc yteson 08-31-2022 Lymphocytes/100 WBC (Bld) 17.9 % 19-41 [facility] Work Phone: Blood monocytes/100 leukocyt eson 08-31-2022 Monocytes/100 WBC (Bld) 11.2 % 0-10 [facility] Work Phone: Blood platelet mean volumeon 08-31-2022 Platelet mean volume (Bld) [Entitic vol] 10.3 fL 6.2-12.0 [facility] Work Phone: Determination of erythrocyte mean corpuscular volume (MCV)on 08-31-2022 MCV (RBC) [Entitic vol] 94.9 fL 80-94 [facility] Work Phone: Hematocrit Auto (Bld) [Volum e fraction]on 08-31-2022 Hematocrit (Bld) [Volume fraction] 48.1 % 40-54 [facility] Work Phone: Ketones Test strip Ql (U)on 08-31-2022 Ketones Ql (U) Negative Negative [facility] Work Phone: Laboratory - Chemistry and C hemistry - challengeon 08-31-2022 ALP [Catalytic activity/Vol] 94 U/L 45-117 [facility] Work Phone: ALT [Catalytic activity/Vol] 32 U/L 16-61 [facility] Work Phone: CO2 [Moles/Vol] 28.0 mmol/L 21.0-32.0 [facility] Work Phone: Globulin (S) [Mass/Vol] 3.5 g/dL 2.2-4.2 [facility] Work Phone: Urea nitrogen/Creatinine [Mass ratio] 18.3 mg/mg 10-20 [facility] Work Phone: Laboratory - Hematology and Cell countson 08-31-2022 Erythrocyte distribution width (RBC) [Entitic vol] 42.3 fL 35.1-43.9 [facility] Work Phone: Erythrocyte distribution width (RBC) [Ratio] 12.2 % 11.6-14.6 [facility] Work Phone: Immature granulocytes/100 WBC (Bld) 0.400 % 0.0-0.9 [facility] Work Phone: Comment on above: IG% - Immature Granu locytes (promyelocytes, myelocytes and metamyelocytes) > 1% indicates that a LEFT SHIFT is Present. MCH (RBC) [Entitic mass] 32.0 pg 27.0-32.0 [facility] Work Phone: Nucleated RBC/100 WBC (Bld) [Ratio] 0 % 0-5 [facility] Work Phone: MCHC Auto (RBC) [Mass/Vol]on 08-31-2022 MCHC (RBC) [Mass/Vol] 33.7 g/dL 32-36 [facility] Work Phone: Mucus LM Ql (Urine sed)on Mucus Ql (Urine sed) 0 SEEN /hpf [facility] Work Phone: Nitrite Test strip Ql (U)on 08-31-2022 Nitrite Ql (U) Negative Negative [facility] Work Phone: No Panel Informationon 08-31 Estimated GFR (MDRD) Amer 80 mL/min >60 [facility] Work Phone: Comment on above: GFR Calc Estimated GFR (MDRD) Non-Af Amer 66 mL/min >60 [facility] Work Phone: Comment on above: Non- GFR Calc Platelets bldon 08-31-2022 Platelets (Bld) [#/Vol] 222 10*3/uL 150-450 [facility] Work Phone: Protein Test strip Ql (U)on 08-31-2022 Protein Ql (U) 15 mg/dl Negative [facility] Work Phone: Serum or plasma albumin dex urement (mass/volume)on 08-31-2022 Albumin [Mass/Vol] 3.5 g/dL 3.2-5.0 [facility] Work Phone: Serum or plasma albumin/glob ulin mass ratioon 08-31-2022 Albumin/Globulin [Mass ratio] 1.0 {ratio} 0.9-2.4 [facility] Work Phone: Serum or plasma calcium dex urement (mass/volume)on 08-31-2022 Calcium [Mass/Vol] 9.4 mg/dL 8.5-10.1 [facility] Work Phone: Serum or plasma cholesterol in HDL measurement (mass/volume)on 08-31-2022 Cholesterol in HDL [Mass/Vol] 44 mg/dL >40 [facility] Work Phone: Comment on above: The drugs N-Acetylcy steine and Metamizole may falsely depress this assay. Reference Range HDL <40 mg/dL Low HDL Cholesterol HDL >or= 60 mg/dL High HDL Cholesterol Serum or plasma cholesterol in VLDL measurement (mass/volume)on 08-31-2022 Cholesterol in VLDL [Mass/Vol] 30 mg/dL 5-40 [facility] Work Phone: Serum or plasma creatinine m easurement (mass/volume)on 08-31-2022 Creatinine [Mass/Vol] 1.15 mg/dL 0.70-1.30 [facility] Work Phone: Comment on above: The validity of the calculated GFR & GFRAA in patients over 70 years has not been determined. Clinical correlation is essential. Serum or plasma low density lipoprotein (LDL) cholesterol measurement (mass/volume)on 08-31-2022 Cholesterol in LDL [Mass/Vol] 73 mg/dL 0-130 [facility] Work Phone: Serum or plasma urea nitroge n measurement (mass/volume)on 08-31-2022 Urea nitrogen [Mass/Vol] 21 mg/dL 7-18 [facility] Work Phone: Squamous epithelial cells de tection in urine sediment by light microscopyon 08-31-2022 Epithelial cells.squamous LM Ql (Urine sed) 0 SEEN /hpf 0-5 [facility] Work Phone: Thin prep Papanicolaou smear with manual screeningon 08-31-2022 Thin prep Papanicolaou smear with manual screening 23 U/L 15-37 [facility] Work Phone: Thin prep Papanicolaou smear with manual screening 5 5-15 [facility] Work Phone: Urine blood detectionon 08-20 RBC Ql (U) Negative Negative [facility] Work Phone: RBC Ql (U) 0 SEEN /hpf 0-5 [facility] Work Phone: Urine clarityon 08-31-2022 Clarity (U) Clear Clear [facility] Work Phone: Urine color determinationon 08-31-2022 Color (U) Yellow Yellow [facility] Work Phone: Urine glucose detectionon Glucose Ql (U) Normal mg/dl Normal [facility] Work Phone: Urine leukocyte esterase det ection by dipstickon 08-31-2022 Leukocyte esterase Test strip Ql (U) Negative Negative [facility] Work Phone: Urine pHon 08-31-2022 pH (U) 7.0 [pH] 5.0 - 8.0 [facility] Work Phone: Urine sediment bacteria coun t by microscopy (number/high power field)on 08-31-2022 Bacteria LM.HPF (Urine sed) [#/Area] 0 /[HPF] None Seen [facility] Work Phone: Urine specific gravity measu rementon 08-31-2022 Specific gravity (U) [Rel density] 1.015 1.002-1.030 [facility] Work Phone: Urobilinogen Auto test strip Ql (U)on 08-31-2022 Urobilinogen Ql (U) Normal mg/dl Normal [facility] Work Phone: Basophil percentageon 2021 Bilirubin [Mass/Vol] 0.60 mg/dL 0.20-1.00 [facility] Work Phone: Comment on above: For patients on eltr ombopag therapy, use of Dimension [place] TBIL is not recommended. Chloride [Moles/Vol] 110 mmol/L 98-107 [facility] Work Phone: Glucose [Mass/Vol] 88 mg/dL 74-106 [facility] Work Phone: Potassium [Moles/Vol] 4.2 mmol/L 3.5-5.1 [facility] Work Phone: Protein [Mass/Vol] 6.8 g/dL 6.4-8.2 [facility] Work Phone: Sodium [Moles/Vol] 140 mmol/L 136-145 [facility] Work Phone: Laboratory - Chemistry and C hemistry - challengeon 03-18-2022 ALP [Catalytic activity/Vol] 100 U/L 45-117 [facility] Work Phone: ALT [Catalytic activity/Vol] 31 U/L 16-61 [facility] Work Phone: CO2 [Moles/Vol] 26.0 mmol/L 21.0-32.0 [facility] Work Phone: Globulin (S) [Mass/Vol] 3.3 g/dL 2.2-4.2 [facility] Work Phone: Urea nitrogen/Creatinine [Mass ratio] 16.5 mg/mg 10-20 [facility] Work Phone: No Panel Informationon 03-18 Estimated GFR (MDRD) Amer 85 mL/min >60 [facility] Work Phone: Comment on above: GFR Calc Estimated GFR (MDRD) Non-Af Amer 70 mL/min >60 [facility] Work Phone: Comment on above: Non- GFR Calc Serum or plasma albumin dex urement (mass/volume)on 03-18-2022 Albumin [Mass/Vol] 3.5 g/dL 3.2-5.0 [facility] Work Phone: Serum or plasma albumin/glob ulin mass ratioon 03-18-2022 Albumin/Globulin [Mass ratio] 1.1 {ratio} 0.9-2.4 [facility] Work Phone: Serum or plasma calcium dex urement (mass/volume)on 03-18-2022 Calcium [Mass/Vol] 9.4 mg/dL 8.5-10.1 [facility] Work Phone: Serum or plasma creatinine m easurement (mass/volume)on 03-18-2022 Creatinine [Mass/Vol] 1.09 mg/dL 0.70-1.30 [facility] Work Phone: Comment on above: The validity of the calculated GFR & GFRAA in patients over 70 years has not been determined. Clinical correlation is essential. Serum or plasma urea nitroge n measurement (mass/volume)on 03-18-2022 Urea nitrogen [Mass/Vol] 18 mg/dL 7-18 [facility] Work Phone: Thin prep Papanicolaou smear with manual screeningon 03-18-2022 Thin prep Papanicolaou smear with manual screening 21 U/L 15-37 [facility] Work Phone: Thin prep Papanicolaou smear with manual screening 4 5-15 [facility] Work Phone: Whole blood hemoglobin A1c/t otal hemoglobin ratio (mass fraction)on 03-18-2022 HbA1c (Bld) [Mass fraction] 5.3 % 3.8-5.6 [facility] Work Phone: Comment on above: Normal < 5.7 % Predi abetic 5.7 - 6.4 % Diabetic >or= 6.5 % Please note range changes. Absolute lymphocyte counton 03-10-2022 Lymphocytes Auto (Unsp spec) [#/Vol] 0.98 10*3/uL 0.83-4.51 [facility] Work Phone: Basophil percentageon 2021 Basophils/100 WBC (Bld) 0.7 % 0-1 [facility] Work Phone: Bilirubin [Mass/Vol] 0.80 mg/dL 0.20-1.00 [facility] Work Phone: Comment on above: For patients on eltr ombopag therapy, use of Dimension [place] TBIL is not recommended. Chloride [Moles/Vol] 106 mmol/L 98-107 [facility] Work Phone: Cholesterol [Mass/Vol] 161 mg/dL <200 [facility] Work Phone: Comment on above: <200 mg/dL Desirable 200-240 mg/dL Borderline >240 mg/dL High Risk Eosinophils/100 WBC (Bld) 3.9 % 0-5 [facility] Work Phone: Glucose [Mass/Vol] 120 mg/dL 74-106 [facility] Work Phone: Comment on above: Fasting Glucose resu lt from 100 to 125 mg/dL suggests IMPAIRED HOMEOSTASIS per A.D.A. criteria. Neutrophils (Bld) [#/Vol] 3.9 10*3/uL 2.0-7.7 [facility] Work Phone: Neutrophils/100 WBC (Bld) 67.1 % 47-70 [facility] Work Phone: Potassium [Moles/Vol] 4.2 mmol/L 3.5-5.1 [facility] Work Phone: Protein [Mass/Vol] 7.3 g/dL 6.4-8.2 [facility] Work Phone: Sodium [Moles/Vol] 137 mmol/L 136-145 [facility] Work Phone: Triglyceride [Mass/Vol] 160 mg/dL [facility] Work Phone: Comment on above: The drugs N-Acetylcy steine and Metamizole may falsely depress this assay.Serum Triglycerides Reference Interval Normal <150 mg/dL Borderline high 150 - 199 mg/dL High 200 - 499 mg/dL Very High > or = 500 mg/dL WBC (Bld) [#/Vol] 5.9 10*3/uL 4.4-11.0 [facility] Work Phone: Blood erythrocytes count (nu mber/volume)on 03-10-2022 RBC (Bld) [#/Vol] 5.20 10*6/uL 4.6-6.2 [facility] Work Phone: Blood hemoglobin measurement (mass/volume)on 03-10-2022 Hemoglobin (Bld) [Mass/Vol] 16.2 g/dL 13.0-16.5 [facility] Work Phone: Blood lymphocytes/100 leukoc yteson 03-10-2022 Lymphocytes/100 WBC (Bld) 16.7 % 19-41 [facility] Work Phone: Blood monocytes/100 leukocyt eson 03-10-2022 Monocytes/100 WBC (Bld) 11.1 % 0-10 [facility] Work Phone: Blood platelet mean volumeon 03-10-2022 Platelet mean volume (Bld) [Entitic vol] 10.3 fL 6.2-12.0 [facility] Work Phone: Determination of erythrocyte mean corpuscular volume (MCV)on 03-10-2022 MCV (RBC) [Entitic vol] 93.5 fL 80-94 [facility] Work Phone: Hematocrit Auto (Bld) [Volum e fraction]on 03-10-2022 Hematocrit (Bld) [Volume fraction] 48.6 % 40-54 [facility] Work Phone: Laboratory - Chemistry and C hemistry - challengeon 03-10-2022 ALP [Catalytic activity/Vol] 97 U/L 45-117 [facility] Work Phone: ALT [Catalytic activity/Vol] 39 U/L 16-61 [facility] Work Phone: CO2 [Moles/Vol] 25.0 mmol/L 21.0-32.0 [facility] Work Phone: Globulin (S) [Mass/Vol] 3.5 g/dL 2.2-4.2 [facility] Work Phone: Urea nitrogen/Creatinine [Mass ratio] 21.4 mg/mg 10-20 [facility] Work Phone: Laboratory - Hematology and Cell countson 03-10-2022 Erythrocyte distribution width (RBC) [Entitic vol] 42.8 fL 35.1-43.9 [facility] Work Phone: Erythrocyte distribution width (RBC) [Ratio] 12.5 % 11.6-14.6 [facility] Work Phone: Immature granulocytes/100 WBC (Bld) 0.500 % 0.0-0.9 [facility] Work Phone: Comment on above: IG% - Immature Granu locytes (promyelocytes, myelocytes and metamyelocytes) > 1% indicates that a LEFT SHIFT is Present. MCH (RBC) [Entitic mass] 31.2 pg 27.0-32.0 [facility] Work Phone: Nucleated RBC/100 WBC (Bld) [Ratio] 0 % 0-5 [facility] Work Phone: MCHC Auto (RBC) [Mass/Vol]on 03-10-2022 MCHC (RBC) [Mass/Vol] 33.3 g/dL 32-36 [facility] Work Phone: No Panel Informationon 03-10 Estimated GFR (MDRD) Amer 72 mL/min >60 [facility] Work Phone: Comment on above: GFR Calc Estimated GFR (MDRD) Non-Af Amer 59 mL/min >60 [facility] Work Phone: Comment on above: Non- GFR Calc Prostate Specific Antigen Screen 2.22 ng/mL 0.00-4.00 [facility] Work Phone: Comment on above: This test was perfor med using the TPSA assay method for the[facility] chemistry system. Values obtained with differentassay methods cannot be used interchangably.When changing PSA assays in the course of monitoring apatient, additional sequential testing should be carriedout to confirm baseline values. Thyroid Stimulating Hormone (TSH) 2.75 uIU/mL 0.358-3.74 [facility] Work Phone: Platelets bldon 03-10-2022 Platelets (Bld) [#/Vol] 238 10*3/uL 150-450 [facility] Work Phone: Serum or plasma albumin dex urement (mass/volume)on 03-10-2022 Albumin [Mass/Vol] 3.8 g/dL 3.2-5.0 [facility] Work Phone: Serum or plasma albumin/glob ulin mass ratioon 03-10-2022 Albumin/Globulin [Mass ratio] 1.1 {ratio} 0.9-2.4 [facility] Work Phone: Serum or plasma calcium dex urement (mass/volume)on 03-10-2022 Calcium [Mass/Vol] 8.8 mg/dL 8.5-10.1 [facility] Work Phone: Serum or plasma cholesterol in HDL measurement (mass/volume)on 03-10-2022 Cholesterol in HDL [Mass/Vol] 42 mg/dL [facility] Work Phone: Comment on above: The drugs N-Acetylcy steine and Metamizole may falsely depress this assay. Reference Range HDL <40 mg/dL Low HDL Cholesterol HDL >or= 60 mg/dL High HDL Cholesterol Serum or plasma cholesterol in VLDL measurement (mass/volume)on 03-10-2022 Cholesterol in VLDL [Mass/Vol] 32 mg/dL 5-40 [facility] Work Phone: Serum or plasma creatinine m easurement (mass/volume)on 03-10-2022 Creatinine [Mass/Vol] 1.26 mg/dL 0.70-1.30 [facility] Work Phone: Comment on above: The validity of the calculated GFR & GFRAA in patients over 70 years has not been determined. Clinical correlation is essential. Serum or plasma low density lipoprotein (LDL) cholesterol measurement (mass/volume)on 03-10-2022 Cholesterol in LDL [Mass/Vol] 87 mg/dL 0-130 [facility] Work Phone: Serum or plasma urea nitroge n measurement (mass/volume)on 03-10-2022 Urea nitrogen [Mass/Vol] 27 mg/dL 7-18 [facility] Work Phone: Thin prep Papanicolaou smear with manual screeningon 03-10-2022 Thin prep Papanicolaou smear with manual screening 27 U/L 15-37 [facility] Work Phone: Thin prep Papanicolaou smear with manual screening 6 5-15 [facility] Work Phone: CNPNon 06-11-2020 CNPN Telephone (HNQ) BHAVNA ROCA ([id number]) 1945 M Date Time Provider Department 06/11/20 ANDRIA GUEVARA ([facility]) HNQ During your visit today, we recorded the following information about you: Shahana Poole [facility] Asst 06/11/2020 11:35 AM Signed Pt Maya calling. She states the medication previously prescribed is not working and would like to speak with Andria to discuss. [phone] Shahana Poole [facility] Asst Aylin Rodriguez [facility] Asst 2020 2:37 PM Signed Patient's is calling back again. She would really like a phone call back prior to the weekend. Prior Message: [facility] Signed Creation Time: 06/11/2020 11:34 AM Pt Maya calling. She states the medication previously prescribed is not working and would like to speak with Andria to discuss. [phone] ? Shahana Poole [facility] Asst Thanks [facility] Sim[facility] Negro, RN, RN 2020 3:41 PM [...] a call before the weekend. 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, felt a pop- dizziness since, dysequilibrium S/p neck surgery 07/2020 No relief from steroid burst, was hoping to mitigate symptoms until he had appointment with orthopedic surgeon next week Vestibular therapy for neck if cleared by aracely Stephenson Provider Specialties: Physical Therapist Clinic Locations[facility] [address] [id number] [phone] Andria Guevara CNP Allergies As of Date: 06/11/2020 (Not on File) Date Reviewed: 05/29/2020 Reviewed by: Andria [place]) Jacob - Fully Assessed Reason for Visit: Medication [Other] Primary Visit Diagnosis:Dizziness [R42] Other Visit Diagnosis:Cervicalgia [M54.2] Order(s):CONSULT TO VESTIBULAR REHAB PT [[id number]] Order #: [id number]: 1 Prescriptions as of 06/11/2020 Sig: LISINOPRIL [...] Status:Closed by ANDRIA GUEVARA CNP on 06/12/20 [facility] CNOVon 05-29-2020 CNOV Office Visit (OTOLBD ) BHAVNA ROCA ([id number]) 1945 M Date Time Provider Department 05/29/20 10:05 AM ANDRIA GUEVARA (ENRIKE) OTOLBD During your visit today, we recorded [...] been in years until last week 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 Trial steroid burst and taper -Take in the morning with food 2. Continue vestibular therapy at home [email or web address] Referring Provider: SELF [[id number]] Allergies As of Date: 05/29/2020 (Not on File) Date Reviewed: 05/29/2020 Reviewed by: Andria (Paper Cup Machine Operator) Jacob - Fully Assessed Reason for Visit: [...] vestibular therapy at home Meniere's Disease - [email or web address] Prescriptions ordered this encounter Disp Refills Start End PREDNISONE 10 MG TABLET 30 t* 0 05/29/2020 Sig: Take by mouth four (4) tabs x3 days; then three (3) tabs x3days; then two (2) tabs x3 days; then one (1) tab a day x3 days Encounter Status:Closed by ANDRIA GUEVARA CNP on 05/29/20 [facility] PROGRESSon 05-29-2020 PROGRESS HNO ID: [id number] Author: Andria Guevara Service: ? 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 They have found a therapy [facility] [employer] [facility] FAX [phone] they would like a referral faxed to them so they can start therapy. Please call the back at [phone] Duration of symptoms: 10 days Person calling: spouse: Maya Call patient at: on cell [phone] (cell) Was an appointment scheduled: No Closing statement: Symptom Call: Thank you for calling [facility], your call is very important. A nurse [...] sent to the pharmacy on file in [place]. Pt also requesting referral for vestibular [facility] [place] [facility]. Will route to MD team for advisement. Let the pt and know when we hear back from MD team we will fax order and call them. Pt verbalized understanding and have no further questions or concerns at this time. Andria Guevara APRN.MANAGER MOLECULAR 11/26/2019 3:25 PM Signed Patient with a [...] Recommend vestibular/phsyical therapy, orders faxed [address], [place], [phone] ENRIKE Bennett APRN.ENRIKE 11/26/2019 3:25 PM Signed Spoke to pt [...] sent to the pharmacy on file in [place]. Pt also requesting referral for vestibular testing to be sent to a place called [facility] in [place] for vestibular therapy. Will route to MD team for advisement. Let the pt and know when we hear back from MD team we will fax order and call them. Pt verbalized understanding and have no further questions or concerns at this time. Dayanara Antonino 11/27/2019 1:29 PM Signed Pt's calling back with correct fax #[phone] Allergies As of Date: 11/26/2019 (No Known Allergies) Date Reviewed: 06/17/2019 Reviewed by: Andria (Enrike) Jacob - Fully Assessed Reason for Visit: Patient Question [3437] Primary Visit Diagnosis:Dizziness [R42] Order(s):CONSULT TO VESTIBULAR REHAB PT [[id number]] Order #: [id number]: 1 Prescriptions as of 11/26/2019 Sig: VENLAFAXINE [...] ears *05/12/2019 Encounter Status:Closed by ANDRIA GUEVARA MANAGER MOLECULAR on 11/26/19 Normal [facility] SPINE, CERVICAL, 2 OR 3 VIEW Son 10-15-2019 SPINE, CERVICAL, 2 OR 3 VIEWS Patient Name: BHAVAN ROCA STUDY: SPINE, CERVICAL, 2 OR 3 VIEWS INDICATION: AP/lat cervical. COMPARISON: September 16 ACCESSION NUMBER(S): [id number] ORDERING CLINICIAN: RUBI LEGER FINDINGS: Multilevel anterior cervical fusion unchanged. C4-5 anterior fusion in low C5 through 7 anterior plate with graft again noted unchanged. No new findings. IMPRESSION: C4 through C7 anterior cervical fusion with a satisfactory and unchanged appearance. Electronically signed by: VERENA SEARS MD Normal [facility] CERVICAL 2V AP/LATon 017 CERVICAL 2V AP/LAT Performed at [facility] APPROVED BY: TRACY CHAVEZ MD EXAMINATION: [...] Stable postoperative change. No acute findings. Normal [facility] DX LUMBOSACRAL SPINE MIN 4 V IEWSon 09-05-2017 DX LUMBOSACRAL SPINE MIN 4 VIEWS Performed at [facility] APPROVED BY: Roman Acuña MD EXAM TITLE: DX LUMBOSACRAL SPINE MIN 4 VIEWS DATE: 09/05/2017 15:00 COMPARISON: June 06, 2017 CLINICAL INDICATION/HISTORY: The patient is a 72-year-old male with low back pain and numbness and burning the legs exacerbated by standing. TECHNIQUE: AP and lateral neutral, flexion, and extension views of the lumbar spine are presented. FINDINGS: There are five [id number] lumbar vertebra.The motion of the lumbar vertebral bodies between flexion and extension is normal.No fracture or subluxations are noted.There is disc space narrowing at L3-4.Endplate hypertrophic spurs affecting most of the lumbar endplates. IMPRESSION: There is lumbar spondylosis with disc space narrowing at L3-4 and multilevel endplate hypertrophic spur formation. There is no evidence of fracture, malalignment, bony destruction, or instability. Normal [facility] DX CERVICAL SPINE 2 OR 3 VIE WSon 06-06-2017 DX CERVICAL SPINE 2 OR 3 VIEWS Performed at [facility] APPROVED BY: Taryn Spence MD EXAM [...] Stable postoperative changes without apparent complications. Normal [facility] DX LUMBOSACRAL SPINE 2 OR 3 VIEWSon 06-06-2017 DX LUMBOSACRAL SPINE 2 OR 3 VIEWS Performed at [facility] APPROVED BY: Taryn Spence MD EXAM [...] hyperostosis. There is no acute process. Normal [facility] Vital Signs Date Time Vital Sign Value Performing Clinician Facility 06-23-2025 14:18-0400 Diastolic blood pressure 79 mm[Hg] Марина Moeller APRN-MANAGER MOLECULAR Work Phone: [facility] 06-23-2025 14:18-0400 Heart rate 66 /min Марина Moeller APRN-MANAGER MOLECULAR Work Phone: [facility] 06-23-2025 14:18-0400 Systolic blood pressure 116 mm[Hg] Марина SMILEY Work Phone: [facility] 06-20-2025 22:35-0400 Body temperature 98.4 [degF] Dr. Alfredo Vasquez MD Work Phone: [facility] 06-20-2025 22:35-0400 Diastolic blood pressure 66 mm[Hg] Dr. Alfredo Vasquez MD Work Phone: [facility] 06-20-2025 22:35-0400 Heart rate 79 /min Dr. Alfredo Vasquez MD Work Phone: [facility] 06-20-2025 22:35-0400 Respiratory rate 18 /min Dr. Alfredo Vasquez MD Work Phone: [facility] 06-20-2025 22:35-0400 SaO2% (BldA) [Mass fraction] 100 % Dr. Alfredo Vasquez MD Work Phone: [facility] 06-20-2025 22:35-0400 Systolic blood pressure 139 mm[Hg] Dr. Alfredo Vasquez MD Work Phone: [facility] 06-20-2025 22:00-0400 Inhaled oxygen flow rate 3 L/min Dr. Alfredo Vasquez MD Work Phone: [facility] 06-20-2025 18:52-0400 Body height 185.[address] Alfredo Vasquez MD Work Phone: [facility] 06-20-2025 18:52-0400 Body mass index (BMI) [Ratio] 31.5 kg/m2 Dr. Alfredo Vasquez MD Work Phone: [facility] 06-20-2025 18:52-0400 Body weight 108.[address] Alfredo Vasquez MD Work Phone: [facility] 05-06-2025 08:30-0400 Diastolic blood pressure 71 mm[Hg] Sergio Pino MD Work Phone: [facility] 05-06-2025 08:30-0400 Heart rate 61 /min Sergio Pino MD Work Phone: [facility] 05-06-2025 08:30-0400 Respiratory rate 22 /min Sergio Pino MD Work Phone: [facility] 05-06-2025 08:30-0400 Systolic blood pressure 136 mm[Hg] Sergio Pino MD Work Phone: [facility] [employer] 05-06-2025 07:45-0400 Body temperature 97.7 [degF] Sergio Pino MD Work Phone: [facility] [employer] 05-06-2025 07:45-0400 SaO2% (BldA) [Mass fraction] 97 % Sergio Pino MD Work Phone: [facility] [employer] 05-06-2025 06:45-0400 Body mass index (BMI) [Ratio] 30.25 kg/m2 Sergio Pino MD Work Phone: [facility] [employer] 05-06-2025 06:45-0400 Body weight 104 kg Sergio Pino MD Work Phone: [facility] [employer] 04-23-2025 14:51-0400 Body height 185.4 cm Sergio Pino MD Work Phone: [facility] [employer] 04-23-2025 14:51-0400 Body mass index (BMI) [Ratio] 30.34 kg/m2 Sergio Pino MD Work Phone: [facility] [employer] 04-23-2025 14:51-0400 Body weight 104.33 kg Sergio Pino MD Work Phone: [facility] 04-23-2025 14:51-0400 Diastolic blood pressure 64 mm[Hg] Sergio Pino MD Work Phone: [facility] 04-23-2025 14:51-0400 Heart rate 64 /min Sergio Pino MD Work Phone: [facility] 04-23-2025 14:51-0400 SaO2% (BldA) [Mass fraction] 98 % Sergio Pino MD Work Phone: [facility] 04-23-2025 14:51-0400 Systolic blood pressure 120 mm[Hg] Sergio Pino MD Work Phone: [facility] 04-09-2025 10:11-0400 Body height 185.[address] Alfredo Vasquez MD Work Phone: [facility] 04-09-2025 10:11-0400 Body mass index (BMI) [Ratio] 31.1 kg/m2 Dr. Alfredo Vasquez MD Work Phone: [facility] 04-09-2025 10:11-0400 Body weight 107.[address] Alfredo Vasquez MD Work Phone: [facility] 04-09-2025 10:11-0400 Diastolic blood pressure 66 mm[Hg] Dr. Alfredo Vasquez MD Work Phone: [facility] 04-09-2025 10:11-0400 Heart rate 67 /min Dr. Alrfedo Vasquez MD Work Phone: [facility] 04-09-2025 10:11-0400 Respiratory rate 20 /min Dr. Alfredo Vasquez MD Work Phone: [facility] 04-09-2025 10:11-0400 SaO2% (BldA) [Mass fraction] 95 % Dr. Alfredo Vasquez MD Work Phone: [facility] 04-09-2025 10:11-0400 Systolic blood pressure 117 mm[Hg] Dr. Alfredo Vasquez MD Work Phone: [facility] 03-21-2025 08:02-0400 Body mass index (BMI) [Ratio] 30.4 kg/m2 Dr. Alfredo Vasquez MD Work Phone: [facility] 03-21-2025 08:02-0400 Body weight 104.[address] Alfredo Vasquez MD Work Phone: [facility] 03-21-2025 08:02-0400 Diastolic blood pressure 72 mm[Hg] Dr. Alfredo Vasquez MD Work Phone: [facility] 03-21-2025 08:02-0400 Heart rate 63 /min Dr. Alfredo Vasquez MD Work Phone: [facility] 03-21-2025 08:02-0400 Respiratory rate 20 /min Dr. Alfredo Vasquez MD Work Phone: [facility] 03-21-2025 08:02-0400 SaO2% (BldA) [Mass fraction] 94 % Dr. Alfredo Vasquez MD Work Phone: [facility] 03-21-2025 08:02-0400 Systolic blood pressure 123 mm[Hg] Dr. Alfredo Vasquez MD Work Phone: [facility] 03-19-2025 10:19-0400 Body mass index (BMI) [Ratio] 30.41 kg/m2 Марина Moeller APRN-MANAGER MOLECULAR Work Phone: [facility] 03-19-2025 10:19-0400 Body temperature 97.2 [degF] Марина Moeller RIGHT OF WAY SUPERVISOR-MANAGER MOLECULAR Work Phone: [facility] 03-19-2025 10:19-0400 Body weight 104.55 kg Марина Ribeiroruchi MERLOSN-MANAGER MOLECULAR Work Phone: [facility] 03-19-2025 10:19-0400 Diastolic blood pressure 82 mm[Hg] Марина Ribeiroruchi MERLOSN-MANAGER MOLECULAR Work Phone: [facility] 03-19-2025 10:19-0400 Heart rate 68 /min Марина Sajan RICHTER-MANAGER MOLECULAR Work Phone: [facility] 03-19-2025 10:19-0400 Systolic blood pressure 150 mm[Hg] Марина Moeller APRN-MANAGER MOLECULAR Work Phone: [facility] 02-20-2025 07:04-0400 Body temperature 97.2 [degF] Elizabeth Santos MD Work Phone: [facility] 02-20-2025 07:04-0400 Diastolic blood pressure 75 mm[Hg] Elizabeth Santos MD Work Phone: [facility] 02-20-2025 07:04-0400 Heart rate 67 /min Elizabeth Santos MD Work Phone: [facility] 02-20-2025 07:04-0400 Respiratory rate 18 /min Elizabeth Santos MD Work Phone: [facility] 02-20-2025 07:04-0400 SaO2% (BldA) [Mass fraction] 97 % Elizabeth Santos MD Work Phone: [facility] 02-20-2025 07:04-0400 Systolic blood pressure 149 mm[Hg] Elizabeth Santos MD Work Phone: [facility] 02-19-2025 09:10-0400 Body height 185.4 cm Elizabeth Santos MD Work Phone: [facility] 02-19-2025 09:10-0400 Body mass index (BMI) [Ratio] 30.83 kg/m2 Elizabeth Santos MD Work Phone: [facility] 02-19-2025 09:10-0400 Body weight 106 kg Elizabeth Santos MD Work Phone: [facility] 02-06-2025 09:49-0400 Body height 185.4 cm Марина Moeller APRN-MANAGER MOLECULAR Work Phone: [facility] 02-06-2025 09:49-0400 Body mass index (BMI) [Ratio] 31.02 kg/m2 Марина Moeller APRN-MANAGER MOLECULAR Work Phone: [facility] 02-06-2025 09:49-0400 Body weight 106.64 kg Марина Moeller APRN-ENRIKE Work Phone: [facility] 02-06-2025 09:49-0400 Diastolic blood pressure 84 mm[Hg] Марина Moeller APRN-MANAGER MOLECULAR Work Phone: [facility] 02-06-2025 09:49-0400 Heart rate 65 /min Марина Moellre APRN-MANAGER MOLECULAR Work Phone: [facility] 02-06-2025 09:49-0400 Respiratory rate 16 /min Марина Moeller APRN-MANAGER MOLECULAR Work Phone: [facility] 02-06-2025 09:49-0400 Systolic blood pressure 151 mm[Hg] Марина Moeller APRN-ENRIKE Work Phone: [facility] 11-08-2024 08:14-0500 Body height 185.[address] Alfredo Vasquez MD Work Phone: [facility] 11-08-2024 08:14-0500 Body mass index (BMI) [Ratio] 29 kg/m2 Dr. Alfredo Vasquez MD Work Phone: [facility] 11-08-2024 08:14-0500 Body weight 99.[address] Alfredo Vasquez MD Work Phone: [facility] 11-08-2024 08:14-0500 Diastolic blood pressure 72 mm[Hg] Dr. Alfredo Vasquez MD Work Phone: [facility] 11-08-2024 08:14-0500 Heart rate 69 /min Dr. Alfredo Vasquez MD Work Phone: [facility] 11-08-2024 08:14-0500 Respiratory rate 18 /min Dr. Alfredo Vasquez MD Work Phone: [facility] 11-08-2024 08:14-0500 SaO2% (BldA) [Mass fraction] 94 % Dr. Alfredo Vasquez MD Work Phone: [facility] 11-08-2024 08:14-0500 Systolic blood pressure 114 mm[Hg] Dr. Alfredo Vasqeuz MD Work Phone: [facility] 11-06-2024 21:00-0500 Diastolic blood pressure 68 mm[Hg] Dr. Alfredo Vasquez MD Work Phone: [facility] 11-06-2024 21:00-0500 Heart rate 73 /min Dr. Alfredo Vasquez MD Work Phone: [facility] 11-06-2024 21:00-0500 Respiratory rate 20 /min Dr. Alfredo Vasquez MD Work Phone: [facility] 11-06-2024 21:00-0500 SaO2% (BldA) [Mass fraction] 96 % Dr. Alfredo Vasquez MD Work Phone: [facility] 11-06-2024 21:00-0500 Systolic blood pressure 128 mm[Hg] Dr. Alfredo Vasquez MD Work Phone: [facility] 11-06-2024 18:25-0500 Body mass index (BMI) [Ratio] 30.4 kg/m2 Dr. Alfredo Vasquez MD Work Phone: [facility] 11-06-2024 18:25-0500 Body weight 104.[address] Alfredo Vasquez MD Work Phone: [facility] 11-06-2024 18:20-0500 Body temperature 98.6 [degF] Dr. Alfredo Vasquez MD Work Phone: [facility] 07-30-2024 11:36-0400 Body height 185.4 cm Corire Riley MD Work Phone: [facility] 07-30-2024 11:36-0400 Body mass index (BMI) [Ratio] 30.27 kg/m2 Corrie Riley MD Work Phone: [facility] 07-30-2024 11:36-0400 Body temperature 97.59 [degF] Corrie Riley MD Work Phone: [facility] 07-30-2024 11:36-0400 Body weight 104.06 kg Corrie Riley MD Work Phone: [facility] 06-06-2024 11:10-0400 Body height 185.4 cm Devon Dias MD Work Phone: [facility] 06-06-2024 11:10-0400 Body mass index (BMI) [Ratio] 30.15 kg/m2 Devon Dias MD Work Phone: [facility] 06-06-2024 11:10-0400 Body temperature 98.01 [degF] Devon Dias MD Work Phone: [facility] 06-06-2024 11:10-0400 Body weight 103.65 kg Devon Dias MD Work Phone: [facility] 06-06-2024 11:10-0400 Diastolic blood pressure 73 mm[Hg] Devon Dias MD Work Phone: [facility] 06-06-2024 11:10-0400 Heart rate 66 /min Devon Dias MD Work Phone: [facility] 06-06-2024 11:10-0400 Respiratory rate 20 /min Devon Dias MD Work Phone: [facility] 06-06-2024 11:10-0400 SaO2% (BldA) [Mass fraction] 97 % Devon Dias MD Work Phone: [facility] 06-06-2024 11:10-0400 Systolic blood pressure 126 mm[Hg] eDvon Dias MD Work Phone: [facility] 03-25-2024 09:55-0400 Diastolic blood pressure 70 mm[Hg] Massimo Vizcarra MD Work Phone: [facility] 03-25-2024 09:55-0400 Heart rate 69 /min Massimo Vizcarra MD Work Phone: [facility] 03-25-2024 09:55-0400 Respiratory rate 16 /min Massimo Vizcarra MD Work Phone: [facility] 03-25-2024 09:55-0400 SaO2% (BldA) [Mass fraction] 95 % Massimo Vizcarra MD Work Phone: 3(558)004-203068 [address] 03-25-2024 09:55-0400 Systolic blood pressure 152 mm[Hg] Massimo Vizcarra MD Work Phone: 9(295)008-956568 [address] 03-25-2024 09:50-0400 Body temperature 97.39 [degF] Massimo Vizcarra MD Work Phone: 9(120)119-686868 [address] 03-25-2024 07:00-0400 Body height 185.4 cm Massimo Vizcarra MD Work Phone: 7(286)805-865568 [address] 03-25-2024 07:00-0400 Body mass index (BMI) [Ratio] 29.9 kg/m2 Massimo Vizcarra MD Work Phone: [facility] 03-25-2024 07:00-0400 Body weight 102.78 kg Massimo Vizcarra MD Work Phone: [facility] 03-01-2024 11:17-0400 Body height 185.4 cm Devon Dias MD Work Phone: [facility] 03-01-2024 11:17-0400 Body mass index (BMI) [Ratio] 30.08 kg/m2 Devon Dias MD Work Phone: [facility] 03-01-2024 11:17-0400 Body temperature 98.29 [degF] Devon Dias MD Work Phone: [facility] 03-01-2024 11:17-0400 Body weight 103.42 kg Devon Dias MD Work Phone: [facility] 03-01-2024 11:17-0400 Diastolic blood pressure 85 mm[Hg] Devon Dias MD Work Phone: [facility] 03-01-2024 11:17-0400 Heart rate 70 /min Devon Dias MD Work Phone: [facility] 03-01-2024 11:17-0400 Systolic blood pressure 130 mm[Hg] Devon Dias MD Work Phone: 0(873)059-824615 [place] [address] 10-26-2023 10:45-0500 Body height 185.4 cm Devon Dias MD Work Phone: 3(107)115-896615 [place] [address] 10-26-2023 10:45-0500 Body mass index (BMI) [Ratio] 29.69 kg/m2 Devon Dias MD Work Phone: 2(298)105-412215 [place] [address] 10-26-2023 10:45-0500 Body temperature 98.2 [degF] Devon Dias MD Work Phone: 7(745)452-302815 [place] [address] 10-26-2023 10:45-0500 Body weight 102.06 kg Devon Dias MD Work Phone: 6(063)514-165615 [place] [address] 10-26-2023 10:45-0500 Diastolic blood pressure 72 mm[Hg] Devon Dias MD Work Phone: [facility] 10-26-2023 10:45-0500 Heart rate 61 /min Devon Dias MD Work Phone: [facility] 10-26-2023 10:45-0500 Systolic blood pressure 124 mm[Hg] Devon Dias MD Work Phone: [facility] 08-31-2023 11:10-0400 Body temperature 98.8 [degF] Devon Dias MD Work Phone: [facility] 08-31-2023 11:10-0400 Diastolic blood pressure 68 mm[Hg] Devon Dias MD Work Phone: [facility] 08-31-2023 11:10-0400 Heart rate 68 /min Devon Dias MD Work Phone: [facility] 08-31-2023 11:10-0400 Respiratory rate 18 /min Devon Dias MD Work Phone: [facility] 08-31-2023 11:10-0400 Systolic blood pressure 122 mm[Hg] Devon Dias MD Work Phone: [facility] 07-27-2023 08:23-0400 Body height 185.42 cm Devon Dias MD Work Phone: [facility] [place] [address] [place] Work Phone: 07-27-2023 08:23-0400 Body mass index (BMI) [Ratio] 28.63 kg/m2 Devon Dias MD Work Phone: [facility] [place] [address] [place] Work Phone: 07-27-2023 08:23-0400 Body surface area Derived from formula 2.23 m2 Devon Dias MD Work Phone: [facility] [place] [address] [place] Work Phone: 07-27-2023 08:23-0400 Body temperature 98.3 [degF] Devon Dias MD Work Phone: [facility] [place] [address] [place] Work Phone: 07-27-2023 08:23-0400 Body weight 98.43 kg Devon Dias MD Work Phone: [facility] [place] [address] [place] Work Phone: 07-27-2023 08:23-0400 Diastolic blood pressure 77 mm[Hg] Devon Dias MD Work Phone: [facility] [place] [address] [place] Work Phone: 07-27-2023 08:23-0400 Heart rate 73 /min Devon Dias MD Work Phone: [facility] [place] [address] [place] Work Phone: 07-27-2023 08:23-0400 Respiratory rate 16 /min Devon Dias MD Work Phone: [facility] [place] [address] [place] Work Phone: 07-27-2023 08:23-0400 SaO2% (BldA) [Mass fraction] 73 % Devon Dias MD Work Phone: [facility] [place] [address] [place] Work Phone: 07-27-2023 08:23-0400 Systolic blood pressure 142 mm[Hg] Devon Dias MD Work Phone: [facility] [place] [address] [place] Work Phone: 05-12-2023 13:02-0400 Body height 185.42 cm Devon Dias MD Work Phone: [facility] [place] [address] [place] Work Phone: 05-12-2023 13:02-0400 Body mass index (BMI) [Ratio] 27.87 kg/m2 Devon Dias MD Work Phone: [facility] [place] [address] [place] Work Phone: 05-12-2023 13:02-0400 Body surface area Derived from formula 2.2 m2 Devon Dias MD Work Phone: [facility] [place] [address] [place] Work Phone: 05-12-2023 13:02-0400 Body temperature 97.3 [degF] Devon Dias MD Work Phone: [facility] [place] [address] [place] Work Phone: 05-12-2023 13:02-0400 Body weight 95.82 kg Devon Dias MD Work Phone: [facility] [place] [address] [place] Work Phone: 05-12-2023 13:02-0400 Diastolic blood pressure 76 mm[Hg] Devon Dias MD Work Phone: [facility] [place] [address] [place] Work Phone: 05-12-2023 13:02-0400 Heart rate 65 /min Devon Dias MD Work Phone: [facility] [place] [address] [place] Work Phone: 05-12-2023 13:02-0400 Systolic blood pressure 127 mm[Hg] Devon Dias MD Work Phone: [facility] [place] [address] [place] Work Phone: 03-17-2023 13:15-0400 Body height 185.42 cm Devon Dias MD Work Phone: [facility] [place] [address] [place] Work Phone: 03-17-2023 13:15-0400 Body mass index (BMI) [Ratio] 28.79 kg/m2 Devon Dias MD Work Phone: [facility] [place] [address] [place] Work Phone: 03-17-2023 13:15-0400 Body surface area Derived from formula 2.23 m2 Devon Dias MD Work Phone: [facility] [place] [address] [place] Work Phone: 03-17-2023 13:15-0400 Body temperature 98.1 [degF] Devon Dias MD Work Phone: [facility] [place] [address] [place] Work Phone: 03-17-2023 13:15-0400 Body weight 99 kg Devon Dias MD Work Phone: [facility] [place] [address] [place] Work Phone: 03-17-2023 13:15-0400 Diastolic blood pressure 76 mm[Hg] Devon Dias MD Work Phone: [facility] [address] [place] Work Phone: 03-17-2023 13:15-0400 Heart rate 75 /min Devon Dias MD Work Phone: [facility] [address] [place] Work Phone: 03-17-2023 13:15-0400 Systolic blood pressure 145 mm[Hg] Devon Dias MD Work Phone: [facility] [address] [place] Work Phone: NEGATED: Highlighted [id number] 10:41-0400 BMI (Body Mass Index) 29.13 kg/m2 [facility] Work Phone: NEGATED: Highlighted [id number] 10:41-0400 BP Diastolic 73 mm[Hg] [facility] Work Phone: NEGATED: Highlighted [id number] 10:41-0400 BP Systolic 116 mm[Hg] [facility] Work Phone: NEGATED: Highlighted [id number] 10:41-0400 Height 185.42 cm [facility] Work Phone: NEGATED: Highlighted [id number] 10:41-0400 Height 185 cm [facility] Work Phone: NEGATED: Highlighted [id number] 10:41-0400 Pulse (Heart Rate) 74 /min [facility] Work Phone: NEGATED: Highlighted [id number] 10:41-0400 Weight 99.79 kg [facility] Work Phone: NEGATED: Highlighted [id number] Weight 100 kg [place] [facility] Work Phone: Encounters Encounter Date Encounter Type Care Provider Facility Start: 09-29-2025 End: 09-29-2025 ambulatory Alberto Benjamin Facility:[facility] Start: 08-19-2025 End: 08-19-[address] Alfredo Vasquez MD Work Phone: -[facility] [place] [facility] Start: 08-19-2025 End: 08-19-[address] Alfredo Vasquez MD -[facility] [place] [facility] Start: 08-19-2025 End: 08-19-2025 ambulatory Alfredo Vasquez Facility:[facility] Start: 06-23-2025 End: 06-23-2025 Subsequent hospital visit by physician Katie Renae X-Ray 2 [facility] Comment on above: Diaphragm dysfunctio n Start: 06-23-2025 End: 06-23-2025 Office outpatient visit 40 minutes [facility] Work Phone: 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 Alfredo Vasquez MD Work Phone: -Emergency Department Work Phone: Start: 05-08-2025 End: 05-08-[address] Alfredo Vasquez MD Work Phone: [facility] Work Phone: Start: 05-08-2025 End: 05-08-[address] Alfredo Vasquez MD -[facility] [place] [facility] Start: 05-08-2025 End: 05-08-2025 ambulatory Alfredo Vasquez Facility:[facility] Start: 05-06-2025 End: 05-06-2025 ambulatory SERGIO [facility] [employer] [facility] Start: 05-06-2025 End: 05-06-2025 Subsequent hospital visit by physician Sergio Pino MD Work Phone: [facility] Comment on above: Constrictive pericar ditis Start: 04-24-2025 End: 04-24-[address] Alfredo Vasquez MD Work Phone: -[facility]atory [place] [facility] Start: 04-24-2025 End: 04-24-2025 ambulatory Almaz Fowler PA-C Work Phone: [facility] Start: 04-23-2025 End: 04-23-2025 Office outpatient new 45 minutes Sergio Pino MD Work Phone: [facility] Comment on above: Shortness of breath (Primary Dx); Constrictive pericarditis Start: 04-23-2025 End: 04-24-2025 ambulatory LAWAI [employer] [facility] Start: 04-09-2025 End: 04-09-[address] Jana Blake MD -[facility] Work Phone: Start: 04-09-2025 End: 04-09-[address] Alfredo Vasquez MD Work Phone: [facility] Work Phone: Start: 04-08-2025 Non-patient / Non-visit Dr. El GAITAN [facility] Start: 04-08-2025 End: 04-08-[address] Alfredo Vasquez MD Work Phone: [facility] Work Phone: Start: 04-08-2025 End: 04-08-2025 Patient encounter procedure Sonny Gallardo MULE TENDER-C -Cardiovascular Services Work Phone: Start: 04-08-2025 End: 04-08-2025 ambulatory Sonny Gallardo MULE TENDER Facility:[facility] Start: 04-01-2025 End: 04-01-2025 Patient encounter procedure Sonny Gallardo MULE TENDER-C -Radiology [place] Work Phone: Start: 04-01-2025 End: 04-01-2025 ambulatory Sonny Gallardo MULE TENDER Facility:[facility] Start: 03-21-2025 End: 03-21-[address] Jana Blake MD -[facility] Work Phone: Start: 03-21-2025 End: 03-21-2025 ambulatory Alfredo Vasquez Facility:[facility] Start: 03-19-2025 End: 03-19-2025 Office outpatient visit 10 minutes Sarahi Coats RIGHT OF [address] SUPERVISOR-MANAGER MOLECULAR Work Phone: [facility] Comment on above: Diaphragm dysfunctio n (Primary Dx) Start: 03-19-2025 End: 03-19-2025 ambulatory [facility] Ambulatory Start: 02-19-2025 End: 02-20-2025 Evaluation and management of inpatient Elizabeth Santos MD Work Phone: [facility] Comment on above: Diaphragm paralysis (Primary Dx); Acute post-operative pain Start: 02-14-2025 Evaluation and manag ement of inpatient ELIZABETH SANTOS [facility] Start: 02-06-2025 End: 02-06-2025 Office outpatient new 60 minutes Марина Moeller RIGHT OF WAY SUPERVISOR-MANAGER MOLECULAR Work Phone: 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 Alfredo Vasquez MD Work Phone: [facility] Work Phone: Start: 01-31-2025 End: 01-31-[address] Alfredo Vasquez MD -Laboratory, [facility] Start: 01-31-2025 End: 01-31-2025 ambulatory Alfredo Vasquez Facility:[facility] Start: 01-28-2025 End: 01-28-[address] Alfredo Vasquez MD Work Phone: [facility] Work Phone: Start: 01-28-2025 End: 01-28-[address] Lm Hill MD -Radiology, [facility] Work Phone: Start: 01-28-2025 End: 01-28-2025 ambulatory Alfredo Vasquez Facility:[facility] Start: 01-22-2025 End: 01-22-[address] Alfredo Vasquez MD Work Phone: [facility] Work Phone: Start: 01-22-2025 End: 01-22-[address] Lm Hill MD -Radiology, [facility] Work Phone: Start: 01-22-2025 End: 01-22-2025 ambulatory Alfredo Vasquez Facility:[facility] Start: 11-18-2024 ambulatory [facility] Facility:[facility] Start: 11-18-2024 End: 11-18-2024 Patient encounter procedure Almaz ALEMAN -Pulmonary Services/Neurology Work Phone: Start: 11-18-2024 End: 11-18-2024 ambulatory Alfredo Vasquez Facility:[facility] Start: 11-08-2024 Non-patient / Non-visit Dr. El GAITAN [facility] Start: 11-08-2024 End: 11-08-2024 Patient encounter procedure Almaz ALEMAN -[facility] Work Phone: Start: 11-08-2024 End: 11-08-2024 ambulatory Alfredo Vasquez Facility:[facility] Start: 11-08-2024 End: 11-08-2024 ambulatory Alfredo Vasquez Facility:[facility] Start: 11-06-2024 End: 11-06-2024 Emergency department patient visit Dr. Delmar Wild MD -Emergency Department Work Phone: Start: 11-01-2024 End: 11-01-2024 Patient encounter procedure Almaz Valladares PA -Radiology, [facility] Work Phone: Start: 11-01-2024 End: 11-01-2024 [facility] Start: 10-29-2024 End: 10-29-2024 Office outpatient visit 25 minutes Corrie Riley MD Work Phone: 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 Alfredo Vasquez MD -Laboratory, [facility] Start: 10-22-2024 End: 10-22-2024 ambulatory Alfredo Vasquez Facility:[facility] Start: 07-30-2024 End: 07-30-2024 Office outpatient visit 25 minutes Corrie Riley MD Work Phone: 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 Comment on above: Aftercare following surgery of a sensory organ (Primary Dx); Dislocation of intraocular lens, initial encounter; Diabetic macular edema Start: 04-23-2024 ambulatory MASSIMO [facility] Facility: [facility] Start: 04-02-2024 End: 04-02-2024 Postop follow up visit related to original px Massimo Vizcarra MD Work Phone: [facility] Comment on above: Aftercare following surgery of a sensory organ (Primary Dx) Start: 04-02-2024 ambulatory MASSIMO P [facility] Facility: [facility] Start: 03-26-2024 End: 03-26-2024 Postop follow up visit related to original px Massimo Vizcarra MD Work Phone: [facility] Comment on above: Aftercare following surgery of a sensory organ (Primary Dx) Start: 03-26-2024 ambulatory MASSIMO P [facility] Facility: [facility] Start: 03-25-2024 End: 03-25-2024 ambulatory MASSIMO P [facility] Facility:[facility] Start: 03-25-2024 End: 03-25-2024 Subsequent hospital visit by physician Massimo Vizcarra MD Work Phone: [facility] Comment on above: Dislocation of intra ocular lens, initial encounter Start: 03-15-2024 Encounter for other preprocedural examination ASIYADWAYNE WHYTEF Facility:[facility] Start: 03-14-2024 End: 03-14-2024 Office outpatient new 45 minutes Massimo Vizcarra MD Work Phone: [facility] [place] Comment on above: Dislocation of intra ocular lens, initial encounter (Primary Dx); Phacodonesis; Pseudophakia, left eye; Retinal detachment, right Start: 03-14-2024 ambulatory MASSIMO P [facility] Facility: [facility] Start: 03-07-2024 End: 03-07-2024 ambulatory [facility] Work Phone: Start: 03-07-2024 End: 03-07-2024 Patient encounter procedure [facility] Start: 03-01-2024 End: 03-01-2024 ambulatory DEVON DIAS [facility] Start: 03-01-2024 End: 03-01-2024 Office outpatient visit 15 minutes Devon Dias MD Work Phone: [facility] 1 Comment on above: Dizziness and giddin ess Start: 10-26-2023 End: 10-26-2023 ambulatory DEVON DIAS [facility] Start: 10-26-2023 End: 10-26-2023 Office outpatient visit 15 minutes Devon Dias MD Work Phone: [facility] 1 Comment on above: Peripheral vestibulo rigoberto of right ear; Persistent postural-perceptual dizziness Start: 08-31-2023 End: 08-31-2023 Office outpatient visit 25 minutes Devon Dias MD Work Phone: [facility] 1 Comment on above: Persistent postural- perceptual dizziness (Primary Dx) Start: 08-31-2023 End: 08-31-2023 ambulatory DEVON DIAS [facility] Start: 08-16-2023 End: 08-16-2023 ambulatory [facility] Work Phone: Start: 08-16-2023 End: 08-16-2023 Patient encounter procedure [facility] Start: 07-27-2023 Current tobacco non- user cad cap copd pv dm Devon Dias MD Work Phone: AX-Gpssxdegextanh-Sde ma [address] [place] Work Phone: Start: 07-27-2023 FUV, Provider: Devon Dias, Status: Pen, Time: 8:15 AM Provider AMAProvider Work Phone: [facility] Work Phone: Start: 06-21-2023 End: 10-03-2023 ambulatory PHY WO ID REFERRING Facility:A Start: 05-12-2023 Current tobacco non- user cad cap copd pv robyn Dias MD Work Phone: FC-Gfmzhfngiwevjt-Ddu ma 205 [place] Work Phone: Start: 05-12-2023 ambulatory Devon Dias Facility :[id number] Start: 05-08-2023 Patient encounter procedure Aden Groves AuD, CCC-A Work Phone: TO-Gvyjghhen-Ntuptgb 4200 Work Phone: Start: 05-08-2023 ambulatory Mr. Aden Groves Facility:[id number] Start: 03-17-2023 Current tobacco non- user cad cap copd pv dm Devon Dias MD Work Phone: DU-Jnkmccrhejkmrz-Taj ma 205 [place] Work Phone: Start: 03-17-2023 ambulatory Devon Dias Facility :[id number] Start: 08-31-2022 End: 08-31-2022 ambulatory [facility] Work Phone: Start: 08-31-2022 End: 08-31-2022 Patient encounter procedure [facility] Start: 03-18-2022 End: 03-18-2022 Patient encounter procedure [facility] Start: 03-10-2022 End: 03-10-2022 Patient encounter procedure [facility] Start: 05-02-2019 End: 05-13-2019 Patient encounter procedure Pankaj Wilhelm DO Work Phone: [facility] Work Phone: Start: 06-20-2018 Patient encounter Emigdio Roytsephan rs Facility:[id number] Start: 06-11-2018 Patient encounter Emigdio Roystephan rs Facility:[id number] Start: 06-04-2018 Patient encounter Emigdio Roystephan rs Facility:[id number] Start: 05-25-2018 Patient encounter Emigdio Roystephan rs Facility:[id number] Start: 04-30-2018 Patient encounter Emigdio Luciano Armin rs Facility:[id number] Start: 09-05-[address] 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 Alfredo Vasquez MD Work Phone: Start: 06-20-2025 Urnls dip stick/tabl et reagent auto microscopy Dr. Alfredo Vasquez MD Work Phone: Start: 06-20-2025 Plain chest X-ray Dr. Dio Vasquez MD Work Phone: Start: 06-20-[address] Alfredo Vasquez MD Work Phone: Start: 05-08-2025 Assay of prostate sp ecific [...] be performed to confirm baseline values. Start: 05-08-2025 Prostate specific an tigen measurement Dr. Alfredo Vasquez MD Work Phone: Comment [...] exam ches t single view Julia Martínez RIGHT [employer] SUPERVISOR-MANAGER [employer] Work Phone: Start: 02-19-2025 PULSE OXIMETRY, CONTINUOUS David Trivedi MD Work Phone: Start: 02-19-2025 Blood typing serolog ic rh (d) David Trivedi MD Work Phone: Start: 02-06-2025 Radiologic exam ches t 2 views Марина Moeller [employer] SUPERVISOR-MANAGER [employer]LEC[employer] Work Phone: Start: 02-06-2025 Fluoroscopy up to 1 hour physician/qhp time Марина Moeller [employer] SUPERVISOR-MANAGER [employer]LEC[employer] Work Phone: Start: 01-22-2025 X-ray of chest, [...] report Massimo Vizcarra MD Work Phone: Start: 03-14-2024 Oph bmtry prtl coher intrfrmtry io lens pwr june Vizcarra MD Work Phone: Start: 03-01-2024 Follow-up visit Follow-up DEVON DIAS Start: 05-02-2019 End: 05-13-2019 Blood pressure within normal parameters - no follow-up required Pankaj Kenny Weft DO Work Phone: Start: 05-02-2019 End: 05-13-2019 BMI documented as above normal parameters - follow-up documented Pankaj Kenny Wilhelm DO Work Phone: Start: 05-02-2019 End: 05-02-2019 CERVICAL COLLAR SERPENTINE (BREG) Pankaj Kenny Wilhelm DO Work Phone: Start: 05-02-2019 End: 05-13-2019 Documentation of current medications Pankaj Kenny Wilhelm DO Work Phone: Start: 05-02-2019 End: 05-13-2019 Pain assessment documented as positive - follow-up documented Pankaj Kenny Wilhelm DO Work Phone: Start: 05-02-2019 End: 05-13-2019 Tobacco non-user Pankaj Kenny Weft DO Work Phone: Cochlear Implant Devon pitt MD Work Phone: Plan of Treatment Date Care Activity Detail Author Start: 08-11-2026 DTaP/Tdap/Td Vaccine s (2 - Td or Tdap) DTaP/Tdap/Td Vaccines (2 - Td or Tdap) [facility] Start: 08-11-2026 Tetanus vaccination TETANUS [facility] Start: 07-21-2025 Influenza vaccination Influenza Vacc ine (#1) [facility] Start: 06-20-2025 [facility] Start: 05-01-2025 End: 05-01-2025 Admission to same day surgery center 05/01/2025 7:00 AM EDT - 05/01/2025 8:00 AM EDT Surgery [facility] [address] [place] [phone] Sergio Pino MD [address] [place] [id number] Right heart cath [facility] Comment on above: Right heart cath Start: 05-01-2025 Subsequent hospital visit by physician [facility] Comment on above: Constrictive pericar ditis Start: 04-23-2025 End: 04-23-2026 Basic metabolic 1998 panel - Serum or Plasma Basic metabolic panel Lab Routine Shortness of breath Constrictive pericarditis Expected: 04/23/2025 (Approximate), Expires: 04/23/2026 [facility] Work Phone: Comment on above: Expected: 04/23/2025 (Approximate), Expires: 04/23/2026 Start: 04-23-2025 End: 04-23-2026 CBC panel - Blood by Automated count CBC Lab Routine Shortness of breath Constrictive pericarditis Expected: 04/23/2025 (Approximate), Expires: 04/23/2026 [facility] Comment on above: Expected: 04/23/2025 (Approximate), Expires: 04/23/2026 Start: 04-09-2025 Evaluation of diagnostic study results 12 Lead EKG performed by [facility] Start: 04-09-2025 Patient referral [facility] Work Phone: Start: 03-18-2025 End: 03-18-2025 Patient encounter procedure 03/18/2025 2:30 PM EDT Office Visit [facility] [address] [place] [address] [place] [address] [address] [place], [place] [id number] [facility] Start: 02-19-2025 End: 02-19-2025 Admission to same day surgery center 02/19/2025 11:55 AM EDT - 02/19/2025 2:00 PM ED[place] [address] [place] [address] [place] [address] [address] [place] [address] INSERTION, DIAPHRAGMATIC PACEMAKER, LAPAROSCOPIC [36923 (CPT ) +2 more] [facility] [place] Comment on above: INSERTION, DIAPHRAGM ATIC PACEMAKER, LAPAROSCOPIC [31031 (CPT ) +2 more] Start: 02-19-2025 End: 02-19-2025 Inc impltj nstim eltrd neuromuscular INSERTION, DIAPHRAGMATIC PACEMAKER, LAPAROSCOPIC Diaphragm paralysis 02/19/2025 11:55 AM EDT Virtual [facility] [place] Start: 02-19-2025 Subsequent hospital visit by physician 02/19/2025 10:25 AM EDT [place] [address] [place] [address] [place] [address] [facility] [place] [address] [facility] [place] Start: 11-06-2024 [facility] Start: 11-06-2024 [facility] Start: 10-29-2024 End: 10-29-2024 Patient encounter procedure 10/29/2024 10:00 AM EST Office [facility] [address] [address] [facility] [address] [place] [phone] [place] [address] [place], [place] [id number] [facility] Start: 07-21-2024 COVID-19 Vaccine ( season) COVID-19 Vaccine ( season) [facility] Start: 07-21-2024 COVID-19 Vaccine ( season) COVID-19 Vaccine ( season) [facility] Start: 07-21-2024 Influenza vaccination Influenza Vacc ine (#1) [facility] Start: 06-06-2024 End: 06-06-2024 Patient encounter procedure 06/06/2024 11:00 AM EDT Office Visit [facility] 1 [address] [facility] [address] [place] [phone] Devon Dias MD [address] [facility] 1, [address] [place] [address] [facility] 1 Start: 04-23-2024 End: 04-23-2024 Patient encounter procedure 04/23/2024 10:00 AM EDT Office Visit [facility] [address] [address] OhrMassimo MD [address] [facility] [address] [place] [phone] [facility] [place] Start: 04-02-2024 End: 04-02-2024 Patient encounter procedure 04/02/2024 10:40 AM EDT Office Visit [facility] [address] [address] OhrMassimo MD [address] [facility] [address] [place] [address] [facility] [place] Start: 03-26-2024 End: 03-26-2024 Patient encounter procedure 03/26/2024 12:20 PM EDT Office Visit [facility] Outpatient [address] [address] OhrMassimo MD [address] [facility] [address] [place] [address] [facility] Outpatient [facility] Start: 03-25-2024 End: 03-25-2024 Admission to same day surgery center 03/25/2024 8:24 AM EDT - 03/25/2024 10:41 AM EDT Surgery Outpatient [facility] [address] [place] [phone] Massimo Vizcarra MD [address] [facility] [address] [place] [phone] VITRECTOMY MECHANICAL PARS PLANA APPROACH Outpatient [facility] Comment on above: VITRECTOMY MECHANICA L PARS [...] Hospital Encounter [facility]patient [facility] [address] [facility] [address] [place] [phone] Massimo Vizcarra MD [address] [facility] [address] [facility] [address] [place] [address] Dislocation of intraocular lens, initial encounter [facility]patient [facility] Comment on above: Dislocation of intra ocular lens, initial encounter Start: 03-15-2024 End: 03-15-2024 Patient encounter procedure 03/15/2024 11:00 AM EDT Office Visit [facility] 1 [address] [facility] [address] [address] Devon Dias MD [address] [facility] 1, [address] [address] [facility] 1 Start: 03-02-2024 End: 03-02-2025 Comprehensive metabolic 2000 panel - Serum or Plasma Comprehensive Metabolic Panel Lab Routine Dizziness and giddiness Expected: 03/02/2024 (Approximate), Expires: 03/02/2025 [facility] Service Area Work Phone: Comment on above: Expected: 03/02/2024 (Approximate), Expires: 03/02/2025 Start: 03-02-2024 End: 03-02-2025 ECG 12 lead (Ancillary Performed) ECG 12 lead (Ancillary Performed) ECG Routine Dizziness and giddiness Expected: 03/02/2024 (Approximate), Expires: 03/02/2025 [facility] Work Phone: Comment on above: Expected: 03/02/2024 (Approximate), Expires: 03/02/2025 Start: 10-26-2023 FUV, Provider: Devon Dias, Status: Pen, Time: 10:30 AM FUV, Provider: Devon Dias, Status: Pen, Time: 10:30 AM MB-Cuptwtbklkqani-Zvv ma 205 [place] Work Phone: Start: 10-26-2023 End: 10-26-2023 Patient encounter procedure 10/26/2023 10:30 AM EST Office Visit [facility] 1 [address] [facility] [address] [phone] Devon Dias MD [address] [facility] 1, [address] [address] [facility] 1 Start: 07-21-2023 COVID-19 VACCINE ( season) COVID-19 VACCINE ( season) [facility] Start: 07-21-2023 COVID-19 Vaccine ( season) COVID-19 Vaccine ( season) [facility] Start: 05-12-2023 FUV, Provider: Devon Dias, Status: Pen, Time: 1:00 PM FUV, Provider: Devon Dias, Status: Pen, Time: 1:00 PM DM-Sgjmqhtzfehfan-Nkm ma 205 [place] Work Phone: Start: 05-08-2023 ENG, Provider: Aden Groves, Status: Pen, Time: 1:00 PM ENG, Provider: Aden Groves, Status: Daniele, Time: 1:00 PM WX-Wimunobibyjhwy-Lwq ma 205 [place] Work Phone: Start: 2022 RSV High Risk: (Elde rly (60+) or Population) (1 - 1-dose 75+ series) RSV High Risk: (Elderly (60+) or Population) (1 - 1-dose 75+ series) [facility] Start: 2022 RSV Immunization for Adults (1 - 1-dose 75+ series) RSV Immunization for Adults (1 - 1-dose 75+ series) [facility] Start: 11-19-2021 COVID-19 Vaccine (4 - Moderna series) COVID-19 Vaccine (4 - Moderna series) [facility] Start: 05-02-2019 End: 05-02-[address] Cervical CT Myelogram with CT Cervical [facility] Work Phone: Start: 09-26-2015 Screening for malign ant neoplasm of colon COLORECTAL CANCER SCREENING DISCUSSION [facility] Start: 2012 Pneumococcal Vaccine : 65+ Years (1 - PCV) Pneumococcal Vaccine: 65+ Years (1 - PCV) [facility] Start: 2007 RSV patient s and/or patients aged 60+ years (1 - 1-dose 60+ series) RSV patients and/or patients aged 60+ years (1 - 1-dose 60+ series) [facility] Start: 1966 Pneumococcal vaccination Pneumococcal Vaccine (1 of 2 - PCV) [facility] Start: 1966 Pneumococcal Vaccine : 50+ Years (1 of 2 - PCV) Pneumococcal Vaccine: 50+ Years (1 of 2 - PCV) [facility] Start: 1965 Hepatitis C screening Hepatitis C [facility] Start: 1959 Depression Screening Depression Scre ening [facility] Start: 1953 Pneumococcal vaccination PNEUMOCOCCAL VACCINE SERIES (1 of 2 - PCV) [facility] Start: 1953 Pneumococcal Vaccine : 65+ Years (1 - PCV) Pneumococcal Vaccine: 65+ Years (1 - PCV) [facility] Start: 1953 Pneumococcal Vaccine : 65+ Years (1 of 2 - PCV) Pneumococcal Vaccine: 65+ Years (1 of 2 - PCV) [facility] Start: 1947 Hepatitis C screening HEPATITI S C VIRUS SCREENING [facility] Start: 1945 Lipid panel Lipid Panel [facility] Start: 1945 Medicare Annual Wellness (AWV) Medicare Annual Wellness (AWV) [facility] Start: 1945 Medicare Annual Wellness Visit Medicare Annual Wellness Visit (AWV) [facility] Electrocardiogram, 12-lead PRN ACS symptoms Electrocardiogram, 12-lead PRN ACS symptoms ECG Routine As needed until discontinued starting 02/19/2025 [facility] Work Phone: Comment on above: As needed until disc ontinued starting 02/19/[address]stim elt rd neuromuscular INSERTION, DIAPHRAGMATIC PACEMAKER, LAPAROSCOPIC Diaphragm paralysis Virtual [facility] [place] End: 02-19-2025 Incentive spirometry Instruct Incentive spirometry Instruct Respiratory Care Routine Once for 1 Occurrences starting 02/19/2025 until 02/19/2025 [facility] Service Area Work Phone: Comment on above: Once for 1 Occurrenc es starting 02/19/2025 until 02/19/2025 Patient Education [facility] Work Phone: Patient referral [facility] Work Phone: RIGHT HEART CATH RIGHT HEART CAT H Constrictive pericarditis [facility] Immunizations Immunization Date Immunization Notes Care Provider [facility] 08-04-2024 influenza, high dose seasonal, preservative-free Dr. Alfredo Vasquez MD Work Phone: [facility] 08-04-2024 influenza virus vaccine, unspecified formulation [facility] 2 [facility] Work Phone: 08-23-2023 influenza, injectabl e, quadrivalent, preservative free Devon Dias MD Work Phone: [facility] Work Phone: 08-23-2023 influenza virus vaccine, unspecified formulation Devon Dias MD Work Phone: [facility] Work Phone: 09-17-2022 Influenza, Seasonal, Quadrivalent, Adjuvanted Devon Dias MD Work Phone: [facility] Work Phone: 09-09-2021 influenza, injectabl e, quadrivalent, preservative free Devon Dias MD Work Phone: [facility] Work Phone: 01-08-2021 Moderna SARS-CoV-2 Vaccination Devon Dias MD Work Phone: [facility] Work Phone: 12-11-2020 Moderna SARS-CoV-2 Vaccination Devon Dias MD Work Phone: [facility] Work Phone: 10-29-2020 zoster vaccine recombinant Devon Dias MD Work Phone: [facility] Work Phone: 08-12-2020 zoster vaccine recombinant Devon Dias MD Work Phone: [facility] Work Phone: 08-27-2019 influenza, seasonal, injectable Devon Dias MD Work Phone: [facility] Work Phone: 08-23-2018 influenza, seasonal, injectable Devon Dias MD Work Phone: [facility] Work Phone: 08-22-2017 influenza, seasonal, injectable Devon Dias MD Work Phone: [facility] Work Phone: 08-11-2016 influenza, seasonal, injectable Devon Dias MD Work Phone: [facility] Work Phone: 08-11-2016 tetanus toxoid, reduced diphtheria toxoid, and acellular pertussis vaccine, adsorbed Devon Dias MD Work Phone: [facility] Work Phone: 08-21-2014 influenza, seasonal, injectable Devon Dias MD Work Phone: [facility] Work Phone: 07-26-2013 influenza, seasonal, injectable Devon Dias MD Work Phone: [facility] Work Phone: 09-28-2012 influenza, seasonal, injectable Devon Dias MD Work Phone: [facility] Work Phone: No information available. Geovanna Baca [facility] Work Phone: Payers Date Payer Category Payer Self-pay [id number] 2022 Medicare supplementa l policy (as second payer) [id number] 2022 Unknown 2016 Unknown [id number] [facility] 2012 Medicare [id number] 2012 Medicare [id number] 1947 Unknown [id number] 2.16.840.1.827686.3.579.2.356 1947 Unknown [id number] 2.16.840.1.520937.3.579.2.1046 1947 Unknown [id number] 2.16.840.1.514760.3.579.2.1046 1947 Unknown [id number] 2.16840.1.858488.3.579.2.627 1947 Unknown [id number] 2.16840.1.492376.3.579.2.594 1947 Unknown [id number] 2.840.1.069828.3.579.2.594 1947 Unknown [id number] 2.840.1.290716.3.579.2.594 1947 Unknown [id number] 2.840.1.007073.3.579.2.594 1947 Unknown [id number] 2.840.1.087632.3.579.2.594 1947 Unknown [id number] 2.840.1.287403.3.579.2.594 1947 Unknown [id number] 2.840.1.706984.3.579.2.124 1947 Unknown [id number] 2.840.1.518717.3.579.2.124 1947 Unknown [id number] 2.840.1.090245.3.579.2.124 1947 Unknown [id number] 2.840.1.024698.3.579.2.1246 1947 Unknown [id number] 2.840.1.552893.3.579.2.1244 1947 Unknown [id number] 2.840.1.166091.3.579.2.124 1947 Unknown [id number] 2.840.1.874341.3.579.2.124 1947 Unknown [id number] 2.840.1.217289.3.579.2.1244 1947 Unknown [id number] 2.840.1.498527.3.579.2.124 1947 Unknown [id number] 2.840.1.859554.3.579.2.124 1947 Unknown [id number] 2.840.1.298946.3.579.2.1244 1947 Unknown [id number] 2.840.1.408001.3.579.2.124 1947 Unknown [id number] 2.840.1.142201.3.579.2.1245 Medicare [id number] Unknown [id number] 2.840.1.917338.3.579.2.462 Unknown [id number] 2.840.1.483466.3.579.2.462 Unknown [id number] 2.840.1.378256.3.579.2.462 Unknown [id number] 2.840.1.199636.3.579.2.462 Unknown [id number] 2.840.1.532941.3.579.2.462 Unknown [id number] 2.840.1.241144.3.579.2.462 Unknown [id number] .840.1.821792.3.579.2.462 Unknown [id number] 2.840.1.302175.3.579.2.462 Unknown [id number] 2.840.1.904543.3.579.2.462 Unknown [id number] 2.840.1.896183.3.579.2.462 Unknown [id number] 2.840.1.847919.3.579.2.462 Unknown [id number] 2.840.1.131673.3.579.2.462 Unknown [id number] 2.16.840.1.496813.3.579.2.462 Unknown [id number] 2.16.840.1.676105.3.579.2.462 Unknown [id number] 2.16.840.1.357935.3.579.2.462 Unknown [id number] 2.16.840.1.381204.3.579.2.462 Unknown [id number] 2.16.840.1.659348.3.579.2.462 Unknown [id number] 2.16.840.1.675279.3.579.2.462 Unknown [id number] 2.16.840.1.058786.3.579.2.462 Unknown [id number] 2.16.840.1.086512.3.579.2.462 Unknown [id number] 2.16.840.1.482117.3.579.2.462 Social History Date Type Detail Facility Start: 05-16-2021 End: 05-16-2021 Assertion Unknown if ever smoked [facility] Work Phone: Start: 1945 Sex Assigned At Male [facility] Start: 08-31-2023 End: 02-20-2025 Employed Employed TO-Jytgyfigaiaxch-Hc rma [address] [place] Work Phone: Start: 08-31-2023 End: 06-20-2025 Tobacco smoking status NHIS Never smoked tobacco [facility] Work Phone: Start: 08-31-2023 End: 03-14-2024 Tobacco use and exposure Smokeless tobacco non-user [facility] Work Phone: Start: 08-31-2023 End: 03-19-2025 Alcohol intake Lifetime non-drinker (finding) [facility] Work Phone: Start: 08-31-2023 End: 02-20-2025 Tobacco use panel [facility] Work Phone: Start: 1945 [facility] Work Phone: Start: 08-21-2023 End: 02-19-2025 Exposure to SARS-CoV-2 (event) Not sure [facility] Start: 10-26-2023 Tobacco use and exposure User of smokeless tobacco [facility] Work Phone: End: 11-20-2009 History of tobacco use Chews Tobacco [facility] Work Phone: How often to you hav e a drink containing alcohol? Never [facility] Work Phone: Start: 10-15-2022 How many standard drinks containing alcohol do you have on a typical day? Patient does not drink [facility] Work Phone: (I/We) worried jose er (my/our) food would run out before (I/we) got money to buy more. Never true [facility] Work Phone: Start: 03-14-2024 Tobacco smoking stat us NHIS Ex-smoker [facility] History of tobacco use Current smoker [facility] History of tobacco use Cigarette Smoker [facility] History of tobacco use Passive smoker [facility] Start: 03-25-2024 End: 04-23-2024 Alcoholic beverage intake Ex-drinker (finding) [facility] Start: 10-29-2024 End: 04-23-2025 Tobacco use and exposure Former smokeless tobacco user [facility] Work Phone: Start: 07-30-2024 Alcohol Comment [address] [facility] Work Phone: Start: 02-02-2025 End: 04-16-2025 Sex Male (finding) [facility] Has the electric, [employer] s, [employer], or water company threatened to shut off services in your home in past 12Mo No [facility] How hard is it for y ou to pay for the very basics like food, housing, medical care, and heating Not very hard [facility] Start: 04-23-2025 End: 04-28-2025 Alcoholic beverage intake Current drinker of alcohol (finding) [facility] Start: 04-23-2025 Alcohol Comment 1 beer monthly [facility] Medical Equipment Procedure Code Equipment Code Equipment Original Text Equipment Identifier Dates Putty, Dbx Bone 0.5ml Case [id number] Start: 08-15-2019 Comment on above: Description: Convert ed from [facility]. Please see archived information for full log information. Size 3.5mm X 15m m Case [id number] Start: 08-15-2019 Comment on above: Description: Convert ed from [facility]. Please see archived information for full log information. Additional Information:Size 3.5mm x 15mmper bill only [facility] 08/16/2019 925am Stand Alone Interbody Cage Case [id number] Start: 08-15-2019 Comment on above: Description: Convert ed from [facility]. Please see archived information for full log information. Additional Information:Stand alone interbody cageper bill only [facility] 08/16/2019 925am [id number] Start: 03-25-2024 Kit, Pacing, Diaphragm, Synapse - [id number] - [id number] Start: 02-19-2025 Mental Status Date Assessment Result Facility 06-20-2025 Cognitive function Level Of Cons ciousness Awake;Alert;Appropriate;Follow s Commands [facility] Work Phone: Clinical Notes 03-17-2023 to 06-23-2025 Марина Moeller APRN-MANAGER MOLECULAR - 06/23/2025 2:30 PM EDTDischarge InstructionsPre-Sedation Documentation - Sergio Pino MD - 05/06/2025 7:41 AM EDTSergio Pino MD - 05/06/2025 7:14 AM EDT Note Date & Type Note Facility 06-23-2025 History of Presen t illness Narrative Subjective Patient ID: Bhavna Roca is a 80 y.o. male[facility]. 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 He came in today because he has had ongoing problems with redness that extends about 4 inches from exit wire sites extending low on the abdomen. He has been treated with Keflex twice for 7 days and is now on bactrim. The first dose of Bactrim was Monday. Monday night he reports (he came into today's appointment with his and son) he had fever, chills, increased work of breathing. [facility] went to [facility] where they did a work up in the ER that included blood work and CT of the abdomen. Over time he improved. There was no new treatment given. Symptoms resolved and he went home. CT was negative (we will request films). His breathing he and family think may be slightly worse now compared to pre implant. 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 Review of Systems Objective Physical Exam Constitutional: Appearance: Normal appearance. Pulmonary: Comments: Slight increased work of breathing until he placed his oxygen back on - with oxygen and few minutes rest, breathing comfortably. Abdominal: Palpations: Abdomen is soft. Comments: There is redness of skin extending about 4 inches below the wires. The skin is dry, flaky. No drainage. Musculoskeletal: General: Normal range of motion. Skin: General: Skin is warm and dry. Neurological: Mental Status: He is alert and oriented to person, place, and time. Psychiatric: Behavior: Behavior normal. 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 We did do CXR and overall it is unchanged from baseline. EMG done and it too is similar to baseline. Skin: the biggest symptoms is itchiness, not pain. There was no elevated WBC and no indication on CT report of abscess. We will treat with hydrocortisone. We did increase power settings. He should continue to pace and let us know about the skin. We should see back in 3-4 months for pacing evaluation. documented in this encounter [facility] Work Phone: 06-20-2025 Radiology Diagnostic study note [facility] Imaging Services [address] [place], [place] [address] Abdomen/Pelvis W IV Cont ONLY MR#: [id number] Acct: [id number] Name: BHAVNA ROCA Rep #: [id number] : 1945 M 80 From: Patrick Armendariz MD PCP: Dr. Alfredo Vasquez MD Status: REG E R Study:Abdomen/Pelvis W IV Cont ONLY Date of E xam: 06/20/25 Exam# [id number] Ordering Dr: So Peoples mus DO PROCEDURE: ABDOMEN/PELVIS W IV CONT ONLY 06/20/2025 REASON FOR EXAM: CHILLS, ABDOMINAL WALL CELLULITIS TECHNIQUE: ABDOMEN/PELVIS W IV CONT ONLY Coronal and Sagittal reconstruction series were provided. CONTRAST: Isovue 370 VOLUME: 100 mL One or more dose reduction techniques were used (e.g., Automated exposure control, adjustment of the mA and/or kV according to patient size, use of iterative reconstruction technique. RADIATION DOSE SUMMARY: CTDlvol: 32.73 mGy DLP: 1358.64 mGycm COMPARISON: 2020 FINDINGS: Lung bases: Chronic interstitial changes with platelike atelectasis in the left lung base. Liver: There is unremarkable aside from a simple 2 cm cyst in the left lobe. Nospecific follow-up needed. Gallbladder: Surgically absent Spleen: Normal size. Pancreas: Normal size without evidence of mass surrounding inflammation or ductal dilation. Adrenals: Unremarkable Kidneys: No obstructive uropathy or suspicious solid renal lesion. Simple bilateral renal cysts are noted. No specific follow-up needed. Bladder: Unremarkable but there is enlarged prostate impinging upon the inferioraspect of the bladder and there may be bladder outlet issues. Bowel: Nondistended fluid-filled small bowel loops suggestive of ileus. Retained stool noted in the colon with scattered diverticula but no CT evidence of acute diverticulitis. Hyperdensity within thececum likely represents ingested medication. Appendix: Normal appendix seen on coronal recon images 61 through 69. Lymph nodes: No suspicious mesenteric or retroperitoneal lymph nodes Vasculature: Peripheral calcifications in the abdominal aorta without aneurysm Peritoneum / Retroperitoneum: No free fluid or air Bones: Degenerative bony changes CT/Abdomen/Pelvis W IV Cont ONLY IMPRESSION: No suspicious solid organ abnormality, simple hepatic and renal cysts, no specific follow-up needed. Small-bowel ileus Enlarged prostate impinging upon the inferior aspect of the bladder may be causing bladder outlet issues Scattered colonic diverticula, no CT evidence of acute diverticulitis. No free intraperitoneal fluid, air, or suspicious adenopathy. Normal appendix visualized Reading Location: [id number] CC: Dr. Alfredo Vasquez MD; Dr. Dat Peoples DO ~ Hydraulic Technician: Signed [facility] 06-20-2025 Radiology Diagnostic study note [facility] Imaging Services [address] [place] [address] Chest 1 View (Portable) MR#: [id number] Acct: [id number] Name: BHAVNA ROCA Rep #: [id number] : 1945 M 80 From: Addison Em MD PCP: Dr. Alfredo Vasquez MD Status: REG E R Study:Chest 1 View (Portable) Date of Exam: 06/20/25 Exam# [id number] Ordering Dr: So Peoples DO PROCEDURE: CHEST 1 VIEW (PORTABLE) 06/20/2025 REASON FOR EXAM: DYSPNEA TECHNIQUE: Frontal view of the chest. COMPARISON: 04/01/2025 FINDINGS: Lungs/Pleura: Elevated left hemidiaphragm with overlying left basilar atelectasis. No definite focal consolidation, pneumothorax, or sizable pleural effusion. Heart/Mediastinum: Mild cardiomegaly. Bones/Soft tissues: Degenerative changes of the spine. Cervical ACDF hardware. RAD/Chest 1 View (Portable) IMPRESSION: Cardiomegaly. Elevated left hemidiaphragm with left basilar atelectasis. This can be seen with hemiparesis of the diaphragm. Reading Location: [id number] CC: Dr. Alfredo Vasquez MD; Dr. Dat Peoples DO ~ Hydraulic Technician: Signed [facility] 05-06-2025 Hospital Discharg e instructions Leidy Cotton [...] gone by tomorrow. documented in this encounter [facility] 05-06-2025 Nurse procedure note Sedation Plan ASA class 2 - patient with mild systemic disease Mallampati class: II - soft palate, uvula, fauces visible. Sedation plan: local anesthesia Risks, benefits, and alternatives discussed with patient. Sergio Pino MD, PhD Advanced Heart Failure Cardiology Software Configuration Managerlemon grower, [facility] Court Interpreter, [facility] LVAD Program and CCU Millinery Worker, Department of Cardiovascular disease [facility] [place] 7:41 AM 05/06/25 [facility] 05-06-2025 Miscellaneous Notes Sedation Plan ASA class 2 - patient with mild systemic disease Mallampati class: II - soft palate, uvula, fauces visible. Sedation plan: local anesthesia Risks, benefits, and alternatives discussed with patient. Sergio Pino MD, PhD Advanced Heart Failure Cardiology Software Configuration Managerlemon grower, [facility] Court Interpreter, [facility] LVAD Program and CCU Millinery Worker, Department of Cardiovascular disease [facility] [place] 7:41 AM 05/06/25 documented in this encounter [facility] 05-06-2025 Attending History and physical note H&P [...] for: FERRITIN HIV: No results found for: [id number] EKG: See Report Echo: See Report EF: [...] Pino MD, PhD Advanced Heart Failure Cardiology Hardboard Press Operator Prof Edwards, [facility] [employer] [facility]. Heart and [facility] [place] 3:18 PM 04/23/25 Copied by Almaz Fowler PA-C. Cosigned by Sergio Pino MD at 04/24/2025 10:38 AM EDT [facility] 05-06-2025 Note H&P reviewed. The pa crescenciomaciel was examined and there are no changes to the H&P. [facility] 05-06-2025 History and physical note H&P [...] for: FERRITIN HIV: No results found for: [id number] EKG: See Report Echo: See Report EF: [...] Pino MD, PhD Advanced Heart Failure Cardiology Hardboard Press Operator Prof Edwards, [facility] [employer]. Heart [facility] [place] 3:18 PM 04/23/25 Copied by Almaz Fowler PA-C. Cosigned by Sergio Pino MD at 04/24/2025 10:38 AM EDT documented in this encounter [facility] [employer] 04-24-2025 History and physical note H+ P [...] for: FERRITIN HIV: No results found for: [id number] EKG: See Report Echo: See Report EF: [...] Pino MD, PhD Advanced Heart Failure Cardiology Hardboard Press Operator Prof Edwards, [employer]. [facility] [place] 3:18 PM 04/23/25 Copied by Almaz Fowler PA-C. Cosigned by Sergio Pino MD at 04/24/2025 10:38 AM EDT [facility] Work Phone: 04-24-2025 History and physical note [...] for: FERRITIN HIV: No results found for: [id number] EKG: See Report Echo: See Report EF: [...] Pino MD, PhD Advanced Heart Failure Cardiology Hardboard Press Operator Prof Edwards, [facility] [employer]. [facility] [place] 3:18 PM 04/23/25 Copied by Almaz Fowler PA-C. Cosigned by Sergio Pino MD at 04/24/2025 10:38 AM EDT documented in this encounter [facility] [employer] 04-24-2025 Note H+ P copied to chart [...] CMP: No result (more content not included)... [facility] 04-24-2025 Note H+ P copied to [...] CMP: No result (more content not included)... [facility] 04-23-2025 Note PROCEDURE: RIGHT HEA RT CATH PROCEDURE DATE: 05/06 PROCEDURE TIME: 7 am ARRIVE AT 6 am Report to the Central Lounge (first floor) at the hospital entrance at [address] [place] [address]. Nothing to eat or drink after midnight [...] dye used Please make arrangements for a tow truck driver after the procedure. You will [...] call the Prep and Recovery area at [phone]. The schedule is not finalized until the afternoon, so please avoid calling before 4:30 pm. Pt will get labwork by Saturday 04/28. [facility] 04-23-2025 History of Presen t illness [...] for: FERRITIN HIV: No results found for: [id number] EKG: See Report Echo: See Report EF: [...] Pino MD, PhD Advanced Heart Failure Cardiology Hardboard Press Operator Prof Edwards, [employer]. [facility] [place] 3:18 PM 04/23/25 [1] Past Medical History: [...] for this visit. documented in this encounter [facility] 04-23-2025 Note CARDIOLOGY HEART DAFNE LURE PROGRESS [...] for: FERRITIN HIV: No results found for: [id number] EKG: See Report Echo: See Report EF: [...] Pino MD, PhD Advanced Heart Failure Cardiology Hardboard Press Operator Prof Edwards, [facility] [employer] [facility]. Heart [facility] [place] 3:18 PM 04/23/25 [1] Past Medical History: Diagnosis Date Coronary artery disease Hyperlipidemia Hypertension [2] Past Surgical History: Procedure Laterality Date COCHLEAR IMPLANT DIAPHRAGM SURGERY 2024 GALLBLADDER SURGERY 1999 [3] No family history on file. [4] Social History Tobacco Use Smoking status: Never Passive exposure: Past Smok (more content not included)... [facility] 03-21-2025 Evaluation note Diagnosis Onset Date Resolution Coronary artery disease acute M 2024 7:59am Hypercholesterolemia acute March 21, 2025 7:59am Pericarditis acute March 21 7:59am Shortness of breath acute March 212024 7:59am Hypertension chronic March 21 7:59am Pericarditis acute April 09 9:50am Shortness of breath acute March 212024 9:50am [facility] Work Phone: 1(210) 979-425604-30-2025 History of Present illness Narrative* Марина Moeller, RIGHT OF WAY SUPERVISOR-MANAGER MOLECULAR - 03/19/2025 11:00 AM EDT Subjective Patient [...] used the anode patch. 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 He is still winded and has had [...] he should call withproblems. [facility] Phone: 1([phone]) 570-587304-03-2025 Nurse Note* Katya Yu RN - 02/20/2025 11:18 AM EDT Patient was discharged home without homecare. RN removed patient's peripheral IV prior to discharge. RN went over discharge instruction with patient and patient's family member. Patient did not have any questions/comments regarding discharge instructions. Patient left via hospital independent accompanied by his family member with his belongings. [facility]04-03-2025 Nurse Note* Katya Yu RN - 02/20/2025 11:18 AM EDT Patient was discharged home without homecare. RN removed patient's peripheral IV prior to discharge. RN went over discharge instruction with patient and patient's family member. Patient did not have any questions/comments regarding discharge instructions. Patient left via hospital independent accompanied by his family member with his belongings. [facility] Work Phone: 1([phone]) 740-135104-03-2025 Plan of care note* Care Plan - Katya Yu RN - 02/20/2025 10:55 AM EDT The patient's goals for the shift include being discharged. The clinical goals for the shift include patient will remain HDS throughout this shift. Over the shift, the patient did make progress towards his goals, remained stable throughout the shift and was discharged home. [facility] Work Phone: [phone]) 508-222604-03-2025 Miscellaneous Notes* Care Plan - Katya Yu RN - 02/20/2025 10:55 AM EDT The patient's goals for the shift include being discharged. The clinical goals for the shift include patient will remain HDS throughout this shift. Over the shift, the patient did make progress towards his goals, remained stable throughout the shift and was discharged home. 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] Procedures INSERTION, DIAPHRAGMATIC PACEMAKER, LAPAROSCOPIC 40531 - MO OPEN IMPLANTATION ROBERTO NEUROMUSCULAR INSERTION, DIAPHRAGMATIC PACEMAKER, LAPAROSCOPIC 77515 - MO ELEC SANDY IMPLT NPGT CPLX SP/PN PRGRMG INSERTION, DIAPHRAGMATIC PACEMAKER, LAPAROSCOPIC 43165 - MO UNLISTED PROCEDURE DIAPHRAGM Surgeons * Elizabeth Santos - Primary Resident/Fellow/Other Hardboard Press Operator: Surgeons and Role: * Roc Davis MD - Fellow Staff: Exploration Engineer: Wendy Scrub Person: Yary Exploration Engineer: Sally Relief Scrub: Lm Relief Exploration Engineer: Pam Anesthesia Staff: Anesthesiologist: David Trivedi MD [...] No. Implant KIT, PACING, DIAPHRAGM, SYNAPSE - [id number] - [id number] Implanted [id number] Findings: The left elevated diaphragm was stimulatable [...] itself really get 50 cc. We co ambreen tell them that by using both diaphragms [...] entire procedure. Elizabeth Santos documented in this [facility] Work Phone: 1(119) 693-193004-03-2025 Hospital course Narrative* Julia Martínez APRN-MANAGER MOLECULAR - 02/20/2025 9:57 AM EDT Discharge Diagnosis [...] future appointments. SHERICE Giles documented in this [facility] Work Phone: [phone]) 953-470304-03-2025 History of Present illness Narrative* eJnnifer Levine - 02/20/2025 9:24 AM EDT 02/20/25 6551 Discharge Planning Living Arrangements Spouse/significant other Support [...] their scheduled procedure and reviewed the patient's qyedt-wf-oajjygvnw medications for accuracy. Medications ADDED: none Medications [...] used to complete the med history include: [facility] Pharmacy dispense history Patient Interview Good historian Chart Review Care Everywhere Below are additional concerns with the patient's DICE SPOTTER list. Patient states they are taking #1 tablet of sertraline 100mg once daily. L.F. 01/31/25 #60/30d. Prescription states #2QD Corrie Balderas [facility] Please reach out via Secure Chat for questions [facility] Work Phone: [phone]) 580-303504-03-2025 Hospital Discharge instructions* Discharge Instructions* SHERICE Giles [...] pacing team to set up the appointment [phone]. If you wish to mail the box in instead of coming for post op visit - then follow instructions in the book. Be sure to include a note statingwho the box belongs to, what to do with it (increase, decrease power) and the address to return it. You should always keep the cable and box secure. [facility] Work Phone: [phone]) [phone] Hospital Note* Hospital Course - SHERICE Giles [...] with instructions provided by diaphragm pacing team. 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] Procedures INSERTION, DIAPHRAGMATIC PACEMAKER, LAPAROSCOPIC 65470 - MO OPEN IMPLANTATION ROBERTO NEUROMUSCULAR INSERTION, DIAPHRAGMATIC PACEMAKER, LAPAROSCOPIC 85903 - MO ELEC SANDY IMPLT NPGT CPLX SP/PN PRGRMG INSERTION, DIAPHRAGMATIC PACEMAKER, LAPAROSCOPIC 57421 - MO UNLISTED PROCEDURE DIAPHRAGM Surgeons * Elizabeth Santos - Primary Resident/Fellow/Other Hardboard Press Operator: Surgeons and Role: * Roc Davis MD - Fellow Staff: Exploration Engineer: Wendy Scrub Person: Yary Exploration Engineer: Sally Alonso Scrub: Lm Alonso Exploration Engineer: Pam Anesthesia Staff: Anesthesiologist: David Trivedi MD [...] No. Implant KIT, PACING, DIAPHRAGM, SYNAPSE - [id number] - [id number] Implanted [id number] Findings: The left elevated diaphragm was stimulatable [...] scrubbed for the entire procedure. Elizabeth Santos [facility] Work Phone: [phone]) 875-881304-02-2025 Attending History and physical note* Elizabeth Santos MD - 02/19/2025 8:06 AM EDT H&P reviewed. The patient was examined and there are no changes to the H&P. Discussed all risks and benefits of diaphragm pacing and possible plication. Source Note - Марина Moeller, RIGHT OF WAY SUPERVISOR-MANAGER MOLECULAR - 02/06/2025 9:30 AM EDT Subjective Patient [...] bronchodilator. Results cameback while they were in [place]. Based on those that puleliz stared on oxygen. He then got into lung MD who sent to us. Current symptoms: difficulty breathing - especially on exertion. Difficulty bending and breathing, The oxygen was started based on overnight pulse ox study done in [place]. He does have some issues with dizziness, positional since cochlear implants. He mainly needs to modify or move slowly. Review of Systems Current Meds: Lisinopril, simvastatin, sertraline, mag oxide, coq10, colchicine, amlodipine, aspirin, MVI, riboflavin Surgeries: lap lillian - 10 yrs ago, cochlear implants, cervical [...] his and daughter who is PCP at [facility]. He has relatively newer onset of shortness of breath - He did have CT and CXR done at [place] in and those have been requested. He had a normal diaphragm in 2018. Symptoms date to October 2024. He has [...] there is blood work and EKG in [facility]. [facility] Work Phone: 1([phone]) [phone] History and physical note* Elizabeth Santos MD [...] bronchodilator. Results cameback while they were in [place]. Based on those that puleliz stared on oxygen. He then got into lung MD who sent to us. Current symptoms: difficulty breathing - especially on exertion. Difficulty bending and breathing, The oxygen was started based on overnight pulse ox study done in [place]. He does have some issues with dizziness, positional since cochlear implants. He mainly needs to modify or move slowly. Review of Systems Current Meds: Lisinopril, simvastatin, sertraline, mag oxide, coq10, colchicine, amlodipine, aspirin, MVI, riboflavin Surgeries: lap lillian - 10 yrs ago, cochlear implants, cervical [...] his and daughter who is PCP at [facility]. He has relatively newer onset of shortness of breath - He did have CT and CXR done at [place] in [place] and those have been requested. [...] there is blood work and EKG in [facility]. [facility] Work Phone: 1([phone]) 817-501603-20-2025 History of Present illness Narrative* Марина Moeller, RIGHT OF WAY SUPERVISOR-MANAGER MOLECULAR - 02/06/2025 9:30 AM EDT Subjective Patient [...] bronchodilator. Results cameback while they were in [place]. Based on those that mikal stared on oxygen. He then got into lung MD who sent to us. Current symptoms: difficulty breathing - especially on exertion. Difficulty bending and breathing, The oxygen was started based on overnight pulse ox study done in [place]. He does have some issues with dizziness, positional since cochlear implants. He mainly needs to modify or move slowly. Review of Systems Current Meds: Lisinopril, simvastatin, sertraline, mag oxide, coq10, colchicine, amlodipine, aspirin, MVI, riboflavin Surgeries: lap lillian - 10 yrs ago, cochlear implants, cervical [...] his and daughter who is PCP at [facility]. He has relatively newer onset of shortness of breath - He did have CT and CXR done at [place] in [place] and those have been requested. [...] there is blood work and EKG in [facility]. documented in this [facility] Work Phone: [phone]) 363-452903-11-2025 Radiology Diagnostic study note [facility] Imaging Services [address] [place] [address] Fluoroscopy 1 Hr or Less MR#: [id number] Acct: [id number] Name: BHVANA ROCA Rep #: [id number] : 1945 M 79 From: Mason Sarkar MD PCP: Dr. Alfredo Vasquez MD Status: REG C Study:Fluoroscopy 1 Hr or Less Date of Exam: 01/28/25 Exam# [id number] Ordering Dr: Lm Hill MD PROCEDURE: FLUOROSCOPY [...] limited movement during inspiration expiration. Reading Location: [facility] [facility] CC: Dr. Alfredo Vasquez MD; Dr. Lm Hill MD ~ Hydraulic Technician: Signed [facility]03-05-2025 Radiology Diagnostic study note [facility] Imaging Services [address] [place] [address] Chest PA and Lateral MR#: [id number] Acct: [id number] Name: BHAVNA ROCA Rep #: [id number] : 1945 M 79 From: Jason Easton MD PCP: Dr. Alfredo Vasquez MD Status: REG C LI Study:Chest PA and Lateral Date of Exam: 01/22/25 Exam# [id number] Ordering Dr: Lm Hill MD PROCEDURE: CHEST [...] are seen, along with DISH. Reading Location: [address] CC: Dr. Alfredo Vasquez MD; Dr. Lm Hill MD ~ Hydraulic Technician: Signed [facility]12-20-2024 Evaluation note* Diagnosis Onset Date Resolution Status Admit Date Coronary artery disease acute D ecember 2023 8:09am Hypercholesterolemia acute Dece mber 2023 8:09am Pericardial effusion without cardiac tamponade acute November 08, 2024 8:09am Pericarditis acute October 8:09am Shortness of breath acute Decem jarrod 2023 8:09am Hypertension chronic October 8:09am [facility] Work Phone: [phone]) 803-675512-10-2024 History of Present illness Narrative* Corrie Riley [...] He has had a VNG from the [facility], which suggests significant right-sided vestibulopathy. A subsequent [...] to vestibular PT to be completed in [place] at the patient will be leaving in [...] Attestation By signing my name below, I, Melisa Kwon attest that this documentation has been prepared under the direction and in the presence of Corrie White MD. I have reviewed the documentation as scribed by Rakesh Simms and agree with the notes. Corrie Riley MD documented in this [facility] Work Phone: [phone]) 425-913709-10-2024 History of Present illness Narrative* Corrie Riley [...] He has had a VNG from the [facility], which suggests significant right-sided vestibulopathy. A subsequent [...] signing my name below, I, Suellen Simms, Scrbrian attest that this documentation has been prepared under the direction and in the presence of Corrie White MD. I have reviewed the documentation as scribed by Rakesh Simms and agree with the notes. Corrie Riley MD documented in this [facility] Work Phone: [phone]) 827-444109-10-2024 Instructions* Patient Instructions* Suellen Ledezma RN - 07/30/2024 11:00 AM EDT Images from the original note were not included. Welcome to Dr. Riley's clinic. We are here to assist you through your ENT care at [facility]. Dr. Riley is an Ear surgeon. This means that she specializes in taking care of patients with complex ear problems. Dr. Riley's office number is [phone]. While you may see her at a satellite office, she has a team committed to help meet your healthcare needs at [facility]'s main campus. This number is the most direct way to communicate with the office. Anna is Dr. Riley's secretary office clerk and she answers the office phone from [...] may include dieticians, social workers, speech therapists, surfacer, neurologist, and physical therapist. Dr. Riley will provide these referrals as needed. Please let her know if you would like to request a specific referral. For your convenience, Dr. Riley sees patients at several [facility] locations including [facility] and [facility] at the main campus [facility]. While we try tomake your appointments as [...] store-bought bread. Plain or sesame seed bagels, Mongolian muffins, quick breads like pumpernickel or zucchini breads. All yeast bread must be 24 hours old. What to avoid: Fresh baked bread, either homemade or from the grocer's bakery, fresh donuts, fresh breakfast Indonesian, nut breads, cheese bread, chocolate bread, raisin [...] crackers. What to avoid: Cheddar cheese crackers, Fivef-ir-s-bisket, any flavored cracker. PRETZELS/CHIPS Acceptable purchases: All plain pretzels and plain potato chips, Tostitos 100% corn chips, Frito's corn chips, Red's salt and vinegar chips. What to avoid: Soft pretzels, honey and mustard pretzels, onion and garlic pretzels or other seasoned pretzels. Avoid Pringles, Doritos Art chips, jalapeno chips and most other seasoned chips. PIES/CAKES/COOKIES/CANDY Acceptable purchases: [employer] and apple store bought pies if made [...] is not injected with a tenderizer (like [place]'s Simple Tender pork products) or with broth (some turkey and chicken). What to avoid: Beef liver and chicken liver, marinated meat, ready-made hot wings, barbeque chicken, breaded meat like fried chicken or nuggets or breaded chicken patties, seasoned rotisserie chicken, and any ready-made meal of meat, noodle or rice like burritos, lasagna, Rice-a-Linus and Hamburger [place]. Any canned tuna with broth. Anchovies. Spam. Canned soups have MSG and sometimes onions. Avoid nitrites in ham, hot dogs and most lunchmeats. DAIRY PRODUCTS Acceptable purchases: Deli Cuban cheese, Cuban cheese with jalapeno peppers, cottage cheese, ricotta cheese and cream cheese. White milk is ok. What to avoid: Aged cheeses like Cheddar, [place] Nicola, Simone and French. Avoid mozzarella cheese, Brie, sour cream buttermilk [...] some frozen mashed potatoes, broccoli, asparagus, cauliflower, [place]' sprouts, carrots, corn, chick peas, mushrooms, canned or frozen peas, yams, string beans, artichokes, red beets, some beans, okra, plain rice, turnips and squash. What to avoid: Onions, sauerkraut, pea pods, broad Portuguese beans, monteiro beans, ion beans, navy beans [...] substitutes, hot chocolate, guerda, orange soda, lemon viejas soda,mountain Dew, any diet soda containing aspartame [...] concentrate and soy beans. documented in this [facility] Work Phone: 1([phone]) 630-932607-18-2024 History of Present illness Narrative* Devon Dias [...] He has had a VNG from the [facility], which suggests significant right-sided vestibulopathy. A subsequent [...] discussed that I will be relocating to [place] and he will follow-up with one of my partners in 3 months. Devon Dias MD documented in this [facility] Work Phone: 1([phone]) 119-680406-04-2024 History of Present illness Narrative* Massimo Vizcarra [...] Follow up 3 months [facility] History of Present illness Narrative* Massimo Vizcarra [...] Eye - following with Dr. Stuart Nino, Karen Berumen, COA acted as a scribe for Massimo Vizcarra [...] for post op Auto/MRx documented in this [facility] History of Present illness Narrative* Liliam Mir [...] scheduled for post op documented in this [facility] Nurse Note* Nursing Notes - Rosa Leonardo RN - 03/25/2024 10:15 AM EDT AVS provided and reviewed with patient and family member. Implant card provided. Questions and concerns addressed. Patient denies further needs at this time. Patient dressed with minimal assistance, ambulated to exit with escort. Will be driven home per family member. 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 A 69 lytton blade and Keratome blade were used to [...] requiring the assistance of a fully trained accountant controller and the Vitreoretinal Service. A qualified resident was not available to participate in this procedure. Therefore, Howard Sarabia MD, the retina fellow was utilized. The skilled programs assistant is necessary to facilitate exposure and visualization of the eye. The skilled programs assistant performs scleral depression, changes the focus of [...] - 03/25/2024 9:50 AM EDT Bhavna Roca ([id number]) PRE OPERATIVE DIAGNOSIS Dislocation of intraocular lens, [...] - Fellow ANESTHESIOLOGIST Anesthesiologist: Kofi Molina MD DIESEL ROLLER OPERATOR: Faye Mai APRN-SHIELA SURGICAL STAFF Exploration Engineer: Elle Logan RN Relief Exploration Engineer: Bozena Berumen RN Relief Scrub: Cheyenne Chang Scrub Person: Cheyenne Spears COMPLICATIONS None ESTIMATED BLOOD LOSS Minimal SPECIMENS No specimen sent * No specimens in log * Howard Sarabia MD March 25, 2024 9:50 AM [facility] Surgery Postoperative evaluation and management note* Op Note - Massimo Vizcarra MD - 03/25/2024 10:15 AM EDT NAME: Bhavna Roca CSN: [id number] DATE: 03/25/2024 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 A 69 lytton blade and Keratome blade were used to [...] requiring the assistance of a fully trained accountant controller and the Vitreoretinal Service. A qualified resident was not available to participate in this procedure. Therefore, Howard Sarabia MD, the retina fellow was utilized. The skilled programs assistant is necessary to facilitate exposure and visualization of the eye. The skilled programs assistant performs scleral depression, changes the focus of [...] than 5 mL. SPECIMENS: None. COMPLICATIONS: None. [facility] Work Phone: [phone] 350-572505-06-2024 Nurse Surgical operation note* Elle Logan RN - 03/25/2024 9:50 AM EDT Pt transported to PACU with anesthesia personnel. Report given to MINING DETAIL DRAFTSPERSON. [facility]05-06-[facility] Surgery Postoperative evaluation and management note* Brief Op Note - Howard Sarabia MD - 03/25/2024 9:50 AM EDT Bhavna Dawsonulissesstephan ([id number]) PRE OPERATIVE DIAGNOSIS Dislocation of intraocular lens, [...] - Fellow ANESTHESIOLOGIST Anesthesiologist: Kofi Molina MD DIESEL ROLLER OPERATOR: Faye Mai APRN-DIESEL ROLLER OPERATOR SURGICAL STAFF Exploration Engineer: Elle Logan RN Relief Exploration Engineer: Bozena Berumen RN Relief Scrub: Cheyenne Chang Scrub Person: Cheyenne Spears COMPLICATIONS None ESTIMATED BLOOD LOSS Minimal SPECIMENS No specimen sent * No specimens in log * Howard Sarabia MD March 25, 2024 9:50 AM [facility]05-06-[facility] Hospital Discharge instructions* Discharge Instructions* Howard [...] or questions, call the answering service at [phone]. If you are unable to reach us at the above number, call the hospital process line operator at [phone] and ask for the EYE resident television picture tube rebuilder. You have a follow-up appointment tomorrow with Dr. Carmita Zazueta [facility] [address] [place] [id number] [facility] Note* Elle Logan RN - 03/25/2024 9:50 AM EDT Pt transported to PACU with anesthesia personnel. Report given to MINING DETAIL DRAFTSPERSON. [facility] History and physical note* Howard Sarabia MD [...] examination, and medical decisions as outlined. [facility] History and physical note* Howard Sarabia MD [...] decisions as outlined. [facility]24 NoteProcedure date: 03/14/2024. Right Eye Quality was good. Findings include cystoid macular edema, epiretinal membrane. Interval change is baseline. Recommendation for management is to schedule surgery. Left Eye Quality was borderline. Findings include drusen. Interval change is baseline. Recommendation for management is to observe.[facility] NoteProcedure date: 03/14/2024. Right Eye Quality was good. Findings include cystoid macular edema, epiretinal membrane. Interval change is baseline. Recommendation for management is to schedule surgery. Left Eye Quality was borderline. Findings include drusen. Interval change is baseline. Recommendation for management is to observe.[id number] History of Present illness Narrative* Keysha Pinon [...] Plana Vitrectomy/Lens Exchange/SFIOL Right Eye - Goal: [place] - AKREOS 16.00 Diopters (-0.38) Right Eye [...] reviewed the dictated documentation as scribed by ILV Lang and it accurately reflects the work [...] in surgery Right Eye documented in this encounter[facility] History of Present illness Narrative* Devon Dias [...] He has had a VNG from the [facility], which suggests significant right-sided vestibulopathy. A subsequent [...] months. Devon Dias MD documented in this [facility] Work Phone: [phone]) [phone] History of Present illness Narrative* Devon iDas MD - 10/26/2023 10:30 AM EST CHIEF [...] He has had a VNG from the [facility], which suggests significant right-sided vestibulopathy. A subsequent [...] February Devon Dias MD documented in this [facility] Work Phone: [phone]) 905-320610-12-2023 History of Present illness Narrative* Devon Dias [...] He has had a VNG from the [facility], which suggests significant right-sided vestibulopathy. A subsequent [...] October. Devon Dias MD documented in this [facility] Work Phone: [phone] 314-300004-28-2023 History of Present illness Narrative* History of [...] He has had a VNG from the [facility], which suggests significant right-sided vestibulopathy. A subsequent [...] This note was created using speech recognition travelift operator software. Despite proofreading, several typographical errors might be present that might affect the meaning of the content. Please call with any questions. [id number]-[id number]-Zoedl [address] [place] Work Phone: [phone] History of Present illness Narrative* History of [...] He has had a VNG from the [facility], which suggests significant right-sided vestibulopathy. A subsequent [...] This note was created using speech recognition travelift operator software. Despite proofreading, several typographical errors might be present that might affect the meaning of the content. Please call with any questions. [facility] Work Phone: [phone]) [phone] History of Present illness Narrative* History of [...] He has had a VNG from the [facility], which suggests significant right-sided vestibulopathy. A subsequent [...] This note was created using speech recognition travelift operator software. Despite proofreading, several typographical errors might be present that might affect the meaning of the content. Please call with any questions. GJ-Yjcckllfipfxyl-Cjncn [address] [place] Work Phone: [phone] History of Present illness Narrative* History of [...] He has had a VNG from the [facility], which suggests significant right-sided vestibulopathy. A subsequent [...] This note was created using speech recognition travelift operator software. Despite proofreading, several typographical errors might be present that might affect the meaning of the content. Please call with any questions. [id number]-[id number] Work Phone: evaluation noteNo assessment information available [facility] Work Phone: Evaluation note* Diagnosis Persistent postural-perceptual dizziness- Primary documented in this encounter [facility] Work Phone: Evaluation note* Diagnosis Peripheral vestibulopathy of right ear Persistent postural-perceptual dizziness documented in this encounter [facility] Work Phone: Evaluation note* Diagnosis Dizziness and giddiness documented in this encounter [facility] Work Phone: Evaluation note* Diagnosis Dislocation of intraocular lens, initial encounter- Primary Phacodonesis Other disorders of lens Pseudophakia, left eye Lens replaced by other means Retinal detachment, right Unspecified retinal detachment Dislocation of intraocular lens, initial encounter [facility] Diagnosis Aftercare following surgery of a sensory organ- Primary Aftercare following surgery of the sense organs, NEC [facility] Diagnosis Aftercare following surgery of a sensory organ- Primary Aftercare following surgery of the sense organs, NEC [facility] Diagnosis Aftercare following surgery of a sensory organ- Primary Aftercare following surgery of the sense organs, NEC Dislocation of intraocular lens, initial encounter Diabetic macular edema [facility] Diagnosis Dizziness and giddiness documented in this encounter [facility] Work Phone: Evaluation note* Diagnosis 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 Dizziness and giddiness Other polyneuropathy Persistent postural-perceptual dizziness Peripheral vestibulopathy of right ear documented in this encounter [facility] Work Phone: Evaluation note* Diagnosis 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 Dizziness and giddiness Other polyneuropathy documented in this encounter [facility] Work Phone: Evaluation note* Diagnosis Diaphragm dysfunction- Primary Shortness of breath documented in this encounter [facility] Work Phone: [phone] note* Diagnosis Diaphragm dysfunction Diaphragm paralysis- Primary Disorders of diaphragm Diaphragm paralysis Disorders of diaphragm documented in this encounter [facility] Work Phone: [phone] note* Diagnosis Diaphragm dysfunction Diaphragm paralysis Disorders of diaphragm documented in this encounter [facility] Work Phone: [phone] note* Diagnosis Diaphragm paralysis- Primary Disorders of diaphragm Diaphragm paralysis Disorders of diaphragm Acute post-operative pain Diaphragm dysfunction documented in this encounter [facility] Work Phone: [phone] note* Diagnosis Diaphragm dysfunction- Primary documented in this encounter [facility] Work Phone: [phone] note* Diagnosis Shortness of breath- Primary Constrictive pericarditis Constrictive pericarditis- Primary [facility]* Diagnosis Constrictive pericarditis- Primary Constrictive pericarditis documented in this encounter [facility]* Diagnosis Diaphragm dysfunction documented in this encounter [facility] Work Phone: Evaluation note* Diagnosis Diaphragm dysfunction- Primary Allergic contact dermatitis due to adhesives Contact dermatitis and other eczema due to other chemical products Diaphragm dysfunction documented in this encounter [facility] Work Phone: History of Present illness Narrative* History of [...] He has had a VNG from the [facility], which suggests significant right-sided vestibulopathy. A subsequent [...] Catch-up saccades going to the left. * Nino-Hallpike test: Normal * No dysdiadochokinesia * Normal liyqqt-mknk-hxnvxe testing * Normal gait * Slight sway [...] This note was created using speech recognition travelift operator software. Despite proofreading, several typographical errors might be present that might affect the meaning of the content. Please call with any questions. [id number]-Enujn [address] [place] Work Phone: Hospital Discharge instructionsAmbulatory Orders* Cardiology Location: None [facility] Work Phone: Reason for referral (narrative)* Consultation (Emergency) - Pending Review Specialty Diagnoses / Procedures Referred By Stacie arellano Referred To Contact Physical Therapy Diagnoses Cochlear implant in place [place] [address] [place] [address] Referral ID Status Reason Start Date Expiration Date Visits Requested Visits Authorized [id number] Pending Review Specialty Services Required 07/30/2024 07/30/2025 1 1 [facility] Work Phone: Reason for referral (narrative)No reason for referral information availableWChillic[facility] Work Phone: Reason for visit Narrative* Imaging (Routine) - Authorized Specialty Diagnoses / Procedures Referred By Contac t Referred To Contact Radiology Diagnoses Diaphragm dysfunction Procedures XR chest 2 views Марина Moeller, RIGHT OF WAY SUPERVISOR-MANAGER MOLECULAR [address] [facility] [place] [address] Phone: tel: fax: Referral ID Status Reason Start Date Expiration Date Visits Requested Visits Authorized [id number] Authorized Perform Procedure 02/05/2025 02/05/2026 1 1 [facility] Work Phone: Reason for visit Narrative* Imaging (Routine) - Authorized Specialty Diagnoses / Procedures Referred By Stacie t Referred To Contact Radiology Diagnoses Diaphragm dysfunction Procedures FL sniff test Марина Moeller, RIGHT OF WAY SUPERVISOR-MANAGER MOLECULAR [address] [place] [address] Phone: tel: fax: Referral ID Status Reason Start Date Expiration Date Visits Requested Visits Authorized [id number] Authorized Perform Procedure 02/05/2025 02/05/2026 1 1 [facility] Work Phone: Rettke for visit Narrative* Auth/Cert Specialty Diagnoses / Procedures Referred By Stacie t Referred To Contact Diagnoses Diaphragm paralysis Diaphragm paralysis [J98.6] Procedures MO OPEN IMPLANTATION ROBERTO NEUROMUSCULAR MO ELEC SANDY IMPLT NPGT CPLX SP/PN PRGRMG MO UNLISTED PROCEDURE DIAPHRAGM INSERTION, DIAPHRAGMATIC PACEMAKER, LAPAROSCOPIC INSERTION, DIAPHRAGMATIC PACEMAKER, LAPAROSCOPIC INSERTION, DIAPHRAGMATIC PACEMAKER, LAPAROSCOPIC Onders, [place] [address] [facility] [place] [address] Phone: tel: fax: [place] [address] [place] [address] fax: Referral ID Status Reason Start Date Expiration Date Visits Re quested Visits Authorized [id number] 1 1 [facility] Work Phone: Reason for visit Narrative* Auth/Cert (Routine) Specialty Diagnoses / Procedures Referred By Stacie arellano Referred To Contact Diagnoses Constrictive pericarditis Constrictive pericarditis [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] Procedures Right heart cath Sergio Pino MD [address] [place] [address] Phone: tel: fax: [facility] [address] [place] [address] Phone: tel: Referral ID Status Reason Start Date Expiration Date Visits Re quested Visits Authorized [id number] [facility] 1 [facility] N[facility]* Imaging (Routine) - Authorized Specialty Diagnoses / Procedures Referred By Stacie arellano Referred To Contact Radiology Diagnoses Diaphragm dysfunction Procedures XR chest 2 views Марина Moeller, RIGHT OF WAY SUPERVISOR-MANAGER MOLECULAR [address] [address] [place] [address] Phone: tel: fax: Referral ID Status Reason Start Date Expiration Date Visits Requested Visits Authorized [id number] Authorized Perform Procedure 06/23/2025 06/23/2026 1 1 [facility] Work Phone: Summary Purpose Family History No Family History [...] Yes May 16, 2021 4:03pm Power of Associate Professor Of Anthropology Yes May 16 4:03pm Advance Directive Response Recorded Date/ Time Advance Directives Yes December 06, 2016 5:01am Living Will Yes May 16, 2021 3:03pm Power of Associate Professor Of Anthropology Yes May 16 3:03pm Advance Directive Response Recorded Date/ Time Living Will Yes August 07, 2024 12:38am Power of Associate Professor Of Anthropology Yes July 12:38am Living Will Yes November 06 7:23pm Power of Associate Professor Of Anthropology Yes November 06, 2024 7:23pm Name of Medical Power of Associate Professor Of Anthropology Maya roca November 06, 2024 7:23pm Advance Directives Yes December 06, 2016 6:01am Advance Directive Response Recorded Date/ Time Living Will Yes August 07, 2024 12:38am Do you have a Healthcare Power of Associate Professor Of Anthropology? Yes August 07, 2024 12:38am Living Will Yes November 06 7:23pm Do you have a Healthcare Power of Associate Professor Of Anthropology? Yes November 06, 2024 7:23pm Name of Medical Power of Associate Professor Of Anthropology Maya roca November 06, 2024 7:23pm Advance [...] Comments 05/06/2025 6:37 AM 05/06/2025 11:00 AM Advance Directive Response Recorded Date/ Time Do you have a Healthcare Power of Associate Professor Of Anthropology? Yes June 20, 2025 7:01pm Advance Directives Yes December 06, 2016 6:01am Chief Complaint Chief Complaint Description Start Date [...] Referral Specialty Diagnoses / Procedures Referred By Contportia t Referred To Contact Diagnoses Dizziness and giddiness Procedures ECG 12 lead (Ancillary Performed) Devon Dias MD [address] [facility] [address], [address] [address] Referral ID Status Reason Start Date Expiration Date V isits Requested Visits Authorized [id number] Authorized 03/02/2024 03/02/2025 1 1 Chief Complaint [...] of breath April 09, 2025 9:50a m Chief Complaint Admit Date 4 M FU March 21, 2025 7:59am EORDER- CXR April 01, 2025 12:47 pm Shortness of breath April 08, 2025 9:56a m Shortness of breath April 09, 2025 9:50a m weaknes June 20, 2025 6:5 1pm Chief Complaint Admit Date weaknes June 20, 2025 6:5 1pm Additional Source Comments (unrecognized sect ion and [...] content) DATE CREATED AUTHOR 05/15/2018 [facility] DATE CREATED AUTHOR AUTHOR'S ORGANIZ ATION 05/18/2018 [facility] DATE CREATED AUTHOR AUTHOR'S ORGANIZ ATION 06/20/2018 [facility] DATE CREATED AUTHOR AUTHOR'S ORGANIZ ATION 06/14/2020 [facility] [place] DATE CREATED AUTHOR AUTHOR'S ORGANIZ ATION 06/21/2020 [facility] DATE CREATED AUTHOR AUTHOR'S ORGANIZ ATION 05/10/2023 [facility] DATE CREATED AUTHOR AUTHOR'S ORGANIZ ATION 05/13/2023 [facility] DATE CREATED AUTHOR AUTHOR'S ORGANIZ ATION 07/28/2023 [facility] DATE CREATED AUTHOR AUTHOR'S ORGANIZ ATION 10/04/2023 [facility] DATE CREATED AUTHOR AUTHOR'S ORGANIZ ATION 04/25/2024 [facility] DATE CREATED AUTHOR AUTHOR'S ORGANIZ ATION 06/10/[address] [facility] DATE CREATED AUTHOR AUTHOR'S ORGANIZ ATION 05/08/2025 [facility] DATE CREATED AUTHOR AUTHOR'S ORGANIZ ATION 06/25/2025 [facility] DATE CREATED AUTHOR AUTHOR'S ORGANIZ ATION 06/28/2025 [facility] DATE CREATED AUTHOR AUTHOR'S ORGANIZ ATION 09/29/2025 [facility] Reason for Visit (unrecogniz ed section and content) Reason For Visit Description New - 1st visit with practice Preliminary reason f or visit data, not yet signed by the author as of neck pain Reason Comments Follow-up Pt states not feelin g well Reason Comments Follow-up Reason Comments Follow-up Reason Comments New Patient Specialty Diagnoses / Procedures Referred By Stacie arellano Referred To Contact Ophthalmology Diagnoses Dislocation of intraocular lens, initial encounter Sierra Davidson MD [address] [place] [address] Massimo Vizcarra MD [address] [facility] [address] [place] [address] Referral ID Status Reason Start Date Expiration Date V isits Requested Visits Authorized [id number] Pending Review 03/08/2024 04/02/2025 1 1 Specialty Diagnoses / Procedures Referred By Stacie arellano Referred To Contact Diagnoses Dislocation of intraocular lens, initial encounter Dislocation of intraocular lens, initial encounter [T85.22XA] Procedures MO VITRECTOMY,MECHANICAL MO EXCHANGE LENS PROSTHESIS MO SUTURE IRIS/CILIARY BODY VITRECTOMY MECHANICAL PARS PLANA APPROACH EXCHANGE IOL SUTURE IRIS CILIARY BODY (MCCANNEL SUTURE) Massimo Vizcarra MD [address] [facility] [address] [place] [address] [facility] [address] [place] [address] Referral ID Status Reason Start Date Expiration Date Visits Re quested Visits Authorized [id number] 1 1 Reason Comments Post Op Visit Reason Comments Follow-up Bilateral ear evalua tion. Reason Comments New Patient Hypertension Hyperlipidemia Coronary Artery Disease Specialty Diagnoses / Procedures Referred By Stacie t Referred To Contact Cardiology Diagnoses Shortness of breath Acute nonspecific idiopathic pericarditis Procedures MO OFFICE/OP CONSLTJ NEW/EST PT MOD MDM 40 MINUTES Jana Blake MD [address] [place] [address] Phone: tel: fax: [facility] [place] [address] [place] [address] Phone: tel: fax: Referral ID Status Reason Start Date Expiration Date Visits Re quested Visits Authorized [id number] Closed 04/16/2025 04/16/2026 1 1 Goals (unrecognized [...] Wilhelm MD Family Provider Active Daisy Philippe DO Primary Care Provider Active Team Status: Inactive Member Role Status Dates Daisy Philippe DO Primary Care Provider, Attending Provider Active Dr. Alfredo Vasquez MD Other Provider Active Team Status: Inactive Member Role Status Dates Daisy Philippe DO Primary Care Provider Active Dr. Alfredo Vasquez MD Attending Provider Active [employer] Relationship Specialty Start Date End Date Alfredo Vasquez MD [address] [place] [address] PCP - General Family Medicine 03/06/24 [employer] Relationship Specialty Start Date End Date Alfredo Vasquez MD [address] [place] [address] PCP - General Family Medicine 03/06/24 [employer] Relationship Specialty Start Date End Date Alfredo Vasquez MD [address] [place] [address] PCP - General Family Medicine 03/06/24 [employer] Relationship Specialty Start Date End Date Alfredo Vasquez MD [address] [place] [address] PCP - General Family Medicine 03/06/24 [employer] Relationship Specialty Start Date End Date Alfredo Vasquez MD [address] [place] [address] PCP - General Family Medicine 07/30/24 [employer] Relationship Specialty Start Date End Date Alfredo Vasquez MD [address] [place] [address] PCP - General Family Medicine 07/30/24 [employer] Relationship Specialty Start Date End Date Alfredo Vasquez MD [address] [place] [address] PCP - General Family Medicine 07/30/24 [employer] Relationship Specialty Start Date End Date Alfredo Vasquez MD [address] [place] [address] PCP - General Family Medicine 07/30/24 Team [...] Status: Inactive Member Role Status Dates Dr. Alfrdeo Vasquez MD Primary Care Provider Active Start: [...] November 18, 2024 End: November 18, 2024 ASH Farias Attending Provider Active Start: November 18, 2024 [...] January 31, 2025 End: January 31, 2025 [employer] Relationship Specialty Start Date End Date Alfredo Vasquez MD [address] [place] [address] PCP - General Family Medicine 07/30/24 [employer] Relationship Specialty Start Date End Date Alfredo Vasquez MD [address] [facility] [address] [place] [address] PCP - General Family Medicine 07/30/24 Team Status: Inactive Member Role [...] Provider Active Start: April 01, 2025 Sonny Paulina [employer], [employer]C Attending Provider Active Start: April 01, 2025 Sonny Paulina [employer], [employer]-C Referring Provider Active Start: April 01, 2025 Team Status: Active Member Role Status Dates Dr. Alfredo Vasquez MD Primary Care Provider Active Start: April 08, 2025 Sonny Paulina [employer], [employer]-C Attending Provider Active Start: April 08, 2025 Sonny Paulina [employer], MULE TENDER-C Referring Provider Active Start: April 08, 2025 [...] 2025 End: April 01, 2025 Sonny Gallardo [employer], MULE TENDER-C Attending Provider Active Start: April 01, 2025 End: April 01, 2025 Sonny Gallardo [employer], MULE TENDER-C Referring Provider Active Start: April 01, 2025 End: April 01, 2025 Team Status: Inactive Member Role Status Dates Dr. Alfredo Vasquez MD Primary Care Provider Active Start: April 08, 2025 End: April 08, 2025 Sonny Gallardo [employer], MULE TENDER-C Attending Provider Active Start: April 08, 2025 End: April 08, 2025 Sonny Gallardo [employer], MU[employer] TENDER-C Referring Provider Active Start: April 08, 2025 [...] May 08, 2025 End: May 08, 2025 Team Status: Active Member Role/Relationship Status Dates Dr. Alfredo Vasquez MD Primary Care Provider Active Team Status: Inactive Member Role/Relationship Status Dates Dr. Alfredo Vasquez MD Primary Care Provider Active Start: March 21, 2025 End: March 21, 2025 Dr. Alfredo Vasquez MD Referring Provider Active Start: March 21, 2025 End: March 21, 2025 Dr. Jana Blake MD Attending Provider Active Start: March 21, 2025 End: March 21, 2025 Team Status: Inactive Member Role/Relationship Status Dates Dr. Alfredo Vasquez MD Primary Care Provider Active Start: April 01, 2025 End: April 01, 2025 Sonny Gallardo MULE TENDER, MULE TENDER-C Attending Provider Active Start: April 01, 2025 End: April 01, 2025 Sonny Gallardo MULE TENDER, MULE TENDER-C Referring Provider Active Start: April 01, 2025 End: April 01, 2025 Team Status: Inactive Member Role/Relationship Status Dates Dr. Alfredo Vasquez MD Primary Care Provider Active Start: April 08, 2025 End: April 08, 2025 Sonny Gallardo MULE [employer]ER, MULE TENDER-C Attending Provider Active Start: April 08, 2025 End: April 08, 2025 Sonny Gallardo MULE TENDER, MULE TENDER-C Referring Provider Active Start: April 08, 2025 End: April 08, 2025 Team Status: Active Member Role/Relationship Status Dates Dr. Alfredo Vasquez MD Primary Care Provider Active Start: April 08, 2025 Dr. Zaki Chávez MD Attending Provider Active S tart: April 08, 2025 Team Status: Inactive Member Role/Relationship Status Dates Dr. Alfredo Vasquez MD Primary Care Provider Active Start: April 09, 2025 End: April 09, 2025 Dr. Alfredo Vasquez MD Referring Provider Active Start: April 09, 2025 End: April 09, 2025 Dr. Jana Blake MD Attending Provider Active Start: April 09, 2025 End: April 09, 2025 Team Status: Inactive Member Role/Relationship Status Dates Dr. Alfredo Vasquez MD Primary Care Provider Active Start: April 24, 2025 End: April 24, 2025 RAMOS SAUER Attending Provider Active S tart: April 24, 2025 End: April 24, 2025 Team Status: Inactive Member Role/Relationship Status Dates Dr. Alfredo Vasquez MD Primary Care Provider Active Start: May 08, 2025 End: May 08, 2025 Dr. Alfredo Vasquez MD Attending Provider Active Start: May 08, 2025 End: May 08, 2025 Dr. Alfredo Vasquez MD Referring Provider Active Start: May 08, 2025 End: May 08, 2025 Team Status: Inactive Member Role/Relationship Status Dates Dr. Alfredo Vasquez MD Primary Care Provider Active Start: June 20, 2025 End: June 20, 2025 Dr. Dat Peoples DO Emergency Provider Active S tart: June 20, 2025 End: June 20, 2025 [employer] Relationship Specialty Start Date End Date Alfredo Vasquez MD [address] [facility] [address] [place], [place] [address] PCP - General Family Medicine 07/30/24 [employer] Relationship Specialty Start Date End Date Alfredo Vasquez MD [address] [facility] [address] [place], [place] [id number] PCP - General Family Medicine 07/30/24 Team Status: Active Member Role/Relationship Status Dates Dr. Alfredo Vasquez MD Primary care physician Active Team Status: Inactive Member Role/Relationship Status Dates Dr. Alfredo Vasquez MD Primary care physician Active Start: May 08, 2025 End: May 08, 2025 Dr. Alfredo Vasquez MD Attending physician Active Start: May 08, 2025 End: May 08, 2025 Dr. Alfredo Vasquez MD Referring Provider Active Start: May 08, 2025 End: May 08, 2025 Team Status: Inactive Member Role/Relationship Status Dates Dr. Alfredo Vasquez MD Primary care physician Active Start: June 20, 2025 End: June 20, 2025 Dr. Dat Peoples DO Attending physician Active Start: June 20, 2025 End: June 20, 2025 Dr. Dat Peoples DO Emergency Department Physician Ac tive Start: June 20, 2025 End: June 20, 2025 Team Status: Inactive Member Role/Relationship Status Dates Dr. Alfredo Vasquez MD Primary care physician Active Start: August 19, 2025 End: August 19, 2025 Dr. Alfredo Vasquez MD Attending physician Active Start: August 19, 2025 End: August 19, 2025 Scheduled Active and Recently Administ ered [...] RN)0723 (Given - Provider: Rossy Epperson RN) dexAMETHasone [...] RN)0723 (Given - Provider: Rossy Epperson RN) tropicamide (MYDRIACYL) 1 % ophthalmic solution 1 drop (COMPLETED) 1 drop, Right Eye, SEE ADMIN INSTRUCTIONS, 3 doses, Starting on Mon03/25/24 at 0646, Until Mon03/25/24 at 0723, Administer 1 drop topically to right eye every 5 minutes for 3 doses starting 30 minutes preprocedure., Pre-op/Pre-Proc 07 (Given - Provid er: Rossy Epperson RN)0718 [...] at 0812, Until Mon03/25/24 at 0948, Intra-op/Intra-Proc 08 (Given - Provid er: Massimo Vizcarra MD) balanced salts (DACRIOSE) ophthalmic irrigation (CANCELED) NEEDED, Starting on Mon03/25/24 at 0812, Until Mon03/25/24 at 0948, Intra-op/Intra-Proc 08 (Given - Provid er: Massimo Vizcarra MD) BUPivacaine/lidocaine/hyaluronida se 10 mL syringe (CANCELED) NEEDED, Starting on Mon03/25/24 at 0812, Until Mon03/25/24 at 0948, Intra-op/Intra-Proc 08 (Given - Provid er: Howard Sarabia MD) [...] (See Alternative - Provider: Cassidy Norris RN) 031 (See Alternative - Provider: Cassidy Norris RN)0817 [...] on Mon02/19/25 at 1500, Phase II/On Unit 181 (Given - Provider: Michelle Yu LPN) 0819 (Given - Provider: Katya Yu, MARSHALL) enoxaparin (Lovenox) syringe 40 mg 40 mg, subcutaneous, Every 24 hours, First dose on Mon02/19/25 at 2100, Phase II/On Unit, Indications: deep vein thrombosis prevention 2047 (Given - Provider: Cassidy Norris, RN) 2100 (Due) lidocaine 4 % patch [...] 20 mg, oral, Daily, First dose on [place] 02/20/25 at 0900, Phase II/On Unit 0818 (Given - Provid er: Katya Yu RN) methocarbamol (Robaxin) injection 1,000 mg (COMPLETED) 1,000 mg, intravenous, Administer over 4 Minutes, Once, On Mon02/19/25 at 1215, For 1 dose, Recovery (only) 1222 (Given - Provider: Elizabeth Vazquez, MARSHALL) methocarbamol (Robaxin) tablet 500 mg 500 mg, [...] dose, Recovery (only) 1220 (Given - Provider: Elizabeth Vazquez RN) BUPivacaine-EPINEPHrine (PF) (Marcaine w/EPI) 0.5 [...] Provider: Elizabeth Santos MD - Comment: suction 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 [employer] provides no warranty or guarantee of the accuracy or completeness of information in this document.
== END | disposition home or self-care (01) ==
LOC: CVS 10:59
PROVIDERS: PCP Family Medicine; Referring Provider Internal Medicine Pulmonary Disease; Visit Provider Internal Medicine Pulmonary Disease
DX: I25.10 Atherosclerotic heart disease of native coronary artery without angina pectoris (principal)
CPT/HCPCS: 93306; Q9957; A4216; C8929